=== PATIENT | male | born 1950 | race Caucasian/White ===

== ENCOUNTER 2019-11-05 04:30 | Inpatient (IN) | payer MEDICARE ==
[~2019-11-05] VITALS: Ht 195.6 cm; Wt 147.2 kg
[2019-11-05] VITALS (38 sets, daily range): BP systolic 73–108; BP diastolic 37–57
[2019-11-05] MEDS ORDERED: INSULIN REGULAR VIAL 100 UNIT in IV NORMAL SALINE 100ML 100 ML IV PRN (05:30)
[2019-11-05 05:33] LABS: BASO # 0.1 x10^3/uL (0.0-0.2); BASO % 1 % (0-3); EOS # 0.1 x10^3/uL (0.0-0.7); EOS % 1 % (0-3); LYMPH # 0.9 x10^3/uL (1.0-4.8); LYMPH % 7 % (24-48); MEAN CORPUSCULAR HEMOGLOBIN 27 pg (25-35); MEAN CORPUSCULAR HGB CONC 32 g/dL (31-37); MEAN CORPUSCULAR VOLUME 86 fL (79-100); MONO % 7 % (0-9); NEUT # 11.8 x10^3/uL (1.8-7.7); NEUT % 85 % (31-73); PLATELET COUNT 333 x10^3/uL (140-400); RED BLOOD COUNT 2.37 x10^6/uL (4.30-5.70); RED CELL DISTRIBUTION WIDTH 17.9 % (11.5-14.5); WHITE BLOOD COUNT 13.9 x10^3/uL (4.0-11.0)
[2019-11-05 05:35] LABS: HEMATOCRIT 20.3 % (39.0-53.0); HEMOGLOBIN 6.4 g/dL (13.0-17.5)
[2019-11-05 05:41] LABS: PROTHROMBIN TIME PATIENT 45.7 SEC (11.7-14.0)
[2019-11-05 05:51] LABS: CREATININE 2.6 mg/dL (0.7-1.3); GFR 24.7; POTASSIUM 4.7 mmol/L (3.5-5.1)
--- NOTE | 2019-11-05 05:55 | NUR ---
Pt arrived to ICU at 0410 via gurney and accompanied by 2 EMS personnel. Pt arrived from [facility] hooked up to insulin gtt as well as LR. Insulin Gtt was resumed at rate it came from at [facility] and then input into Glucostabilizer program at [facility] with Dr. Braun's approval and acknowledgement. Dr. Braun to review medical interventions later today for further guidance. Pt arrived with VSS, BP of 100/ 49, O2 saturation of high 90's on 3LNC, pulses +2 in all four extremities, A&O x4, with appropriate affect and speech. Pt has BLE cellulitis and edema that is covered with Aquacell, ABD's, gauze, and elastic wrap sheathe covering. Lab informed this RN of hematology results of HGB 6.4 and HCT 20.3 aswell as critical coagulation results of INR at 4.8. Dr. Braun called at 0545, provider updated on events leading to hospitalization, medical history, labs, critical results, vitals, medications and current medical interventions and findings from physical assessment. Provider ordered this RN to have pt typed and crossed for 4 units, but to give 2 units PRBC's as soon as possible, aswell as administering 1 unit of FFP. Provider also ordered this RN to give 1LNS bolus at this time, and to follow bolus with D5 .45 NS at 100 mL's/ Hr. Provider ordered this RN to add consult for GI aswell as woundcare. Will continue to assess and monitor.
[2019-11-05 05:58] LABS: ALBUMIN/GLOBULIN RATIO 0.6 (1.0-1.7); TOTAL BILIRUBIN 0.3 mg/dL (0.2-1.0); TOTAL PROTEIN 5.1 g/dL (6.4-8.2)
[2019-11-05] MEDS ORDERED: IV NORMAL SALINE 1000ML BAG 1,000 ML IV ONE (07:00)
[2019-11-05] MEDS: IV DEXTROSE 5 %-0.45 % NACL 1,000 ML IV SCH ×2 (07:44→18:36)
[2019-11-05] MEDS ORDERED: DEXTROSE 50% 25 GM / 50ML DISP.SYRIN. IV PRN (09:15)
[2019-11-05] MEDS ORDERED: INSULIN LISPRO 300 UNITS/3 ML VIAL. SQ PRN (09:15)
[2019-11-05] MEDS: PANTOPRAZOLE SODIUM IV DRIP 80 MG in IV NORMAL SALINE 100ML 100 ML IV PRN ×2 (09:38→18:38)
--- NOTE | 2019-11-05 10:12 | HP ---
ADMIT DATE: 11/05/2019 HISTORY OF PRESENT ILLNESS: The patient is a 69-year-old male patient who presented to the Emergency Room of [facility] with a complaint of weakness and having melena stool for the last 3 days. He complained that he is extremely weak and has had 3 days of dark tarry stools with increased weakness resulting in a fall on the day he arrived to the Emergency Room. He has significant past medical history for DVT, pulmonary embolism x 3 and he is on Coumadin. He has never had any previous GI bleeds with no recent travel outside the [place] or specific ill contact. He was evaluated and initially on arrival, he was hypotensive. His lab work showed that his H and H is down to 6.3 and 20.6. His prothrombin time was more than 120, INR is more than 10. aPTT was 45. The patient has received a liter of lactated Ringer and was started on vitamin K and fresh frozen plasma, received 2 units of packed RBCs and was transferred to the Emergency Room of [facility] for further evaluation and treatment. PAST MEDICAL HISTORY: Significant for type 2 diabetes mellitus with multiple complications, chronic obstructive pulmonary disease, hyperlipidemia, peripheral vascular disease, peripheral neuropathy and DVT and pulmonary embolism for which he is on Coumadin. He has chronic venous stasis dermatitis of both lower extremities and chronic cellulitis. PAST SURGICAL HISTORY: Significant for left foot fourth toe amputation. ALLERGIES: HE IS ALLERGIC TO DARVON, TOUJEO AND HUMALOG INSULIN. HE APPARENTLY WAS TREATED WITH BACTRIM FOR ABOUT 10 DAYS. HE IS ALSO INTOLERANT OF BACTRIM. PATIENT IS ALLERGIC TO MILK CONTAINING PRODUCTS, CHLORDIAZEPOXIDE, AND PROPOXYPHENE. FAMILY HISTORY: He has 1 younger brother who has gastroesophageal reflux disease. His father is still alive at the age of 92 and fairly healthy. His mother at age of 84 because of complication with type 2 diabetes. SOCIAL HISTORY: , has 1 daughter and 1 son. He is an ex-smoker, quit about 7 years ago. He smoked for 48 years and he smoked anything between 2 to 3-1/2 packs a day. He used to be also a heavy alcohol drinker. He quit when he was 46 years old. 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 He used a cane and a walker at home. REVIEW OF SYSTEMS: As per history of present illness. PHYSICAL EXAMINATION: GENERAL: On arrival to the Emergency Room, he looked pale, but no jaundice or cyanosis. No lymphadenopathy, no thyromegaly. No jugular venous distention. No limb edema. VITAL SIGNS: His heart rate initially was 80, blood pressure was 111/64, temperature was 97.7, respiratory rate 22, and oxygen saturation was 94%. His blood pressure drifted down to 82/36 at around midnight. HEAD, EYES, EARS, NOSE AND THROAT: Normocephalic, atraumatic. NECK: Supple. HEART: Showed normal first and second heart sounds. No gallop or murmur. CHEST: Clear to auscultation. No crepitation or rhonchi. ABDOMEN: Distended, soft, nontender. No guarding or rigidity. No organomegaly. All hernial orifice intact. Bowel sounds normal. NEUROLOGIC: He was lethargic, but arousable. All his cranial nerves are intact. He moves his upper extremities to much good extent than lower extremities. Examination of the extremities showed no clubbing, cyanosis, but he has marked bilateral lower extremity edema and erythema. LABORATORY DATA: His lab work on arrival to the Emergency Room showed a white cell count 15,800, hemoglobin 6.3, hematocrit 20.6, MCV 87 and platelet count 417,000. His prothrombin time was more than 120. INR was more than 10 and aPTT was 45. His chemistry showed a serum sodium 133, potassium 4.8, chloride 98, bicarbonate 29, anion gap of 6, BUN 149, creatinine was 2.9, estimated GFR was 21 mL per minute, his glucose was high at 365, calcium was 8.5. Total bilirubin, AST, ALT, alkaline phosphatase were normal. CK was 19, total protein was 6, albumin was 2.3 and lipase was 385. His urinalysis was essentially unremarkable and toxic screen was essentially negative. His chest x-ray showed stable mild cardiomegaly. Lungs are clear. There is no pneumothorax, no pleural effusion is appreciated, no acute pulmonary abnormalities. MEDICATIONS: He is currently on following medications: He is on levofloxacin 750 mg once a day, vancomycin 1 g IV daily, warfarin sodium 3 mg once a day, fenofibrate 160 mg once a day, simvastatin 40 mg at bedtime, propranolol 40 mg twice a day, lisinopril 40 mg once a day, aspirin 81 mg once a day, duloxetine 30 mg twice a day, Ambien 5 mg at bedtime, furosemide 40 mg once a day and he is on Levemir 45 units subcutaneously at bedtime, glimepiride 1 mg daily, and ergocalciferol vitamin D2 50,000 units once a day, multivitamin with mineral 1 tablet once a day, gentamicin ointment applied topically daily. ASSESSMENT AND PLAN: In summary, the patient was admitted with Coumadin-induced coagulopathy, acute blood loss anemia and GI bleed as he has recurrent episode of black tarry stool for the last 3 days. He has multiple other medical problems including chronic obstructive pulmonary disease, atrial fibrillation, hyperlipidemia, hypertension, type 2 diabetes with peripheral neuropathy, history of deep vein thrombosis and pulmonary embolism x 3. He will obviously continue to receive 2 units of packed RBCs. We will monitor his H and H and transfuse him as needed. He did receive 1 unit of fresh frozen plasma and 5 mg of vitamin K. We will transfuse 2 units of blood and also 1 unit of fresh frozen plasma were continued. He was on insulin drip that was stopped and started on D5 half normal. We will start him on insulin sliding scale every 6 hours. We have already consulted the Gastroenterology team and we will continue with IV antibiotic for his bilateral lower extremity cellulitis in the form of Zyvox given his impaired kidney function and Zosyn. KELLY CASTANEDA MD DR: LON/mariusz JOB#: [id number] / [id number]
[2019-11-05] MEDS: PIPERACILLIN/TAZOBACTAM 2.25 GM in IV NORMAL SALINE 50ML 50 ML IV SCH ×2 (10:43→18:36)
--- NOTE | 2019-11-05 11:19 | PDOC2 ---
CONSULT Date of Consult Date of Consult DATE: 11/05/19 TIME: 11:12 Reason for Consult Reason for Consult: Melena, anemia History of Present Illness Reason for Visit: This is a 69-year-old gentleman with a long history of diabetes, atherosclerotic disease and previous DVT with pulmonary emboli. He is chronically on Coumadin and apparently according to him has not had a bleeding episode from the Co umadin. However this last few days he has been weak and dizzy and unable to get out of bed and was brought to initially [facility] emergency room and then transferred here. Initial evaluation revealed significant anemia, history of melena, elevated BUN and a significantly elevated INR of 4.8. He cannot recall the last time he had his INR checked. He is at home with family but it is unclear how closely he is being evaluated for his diabetes management and INR. He denies any history of abdominal pain, nausea, vomiting, change in bowel pattern except for the recent several days of black stools. In addition he denies prior EGD or colonoscopy. He is unaware of previous GI bleeding or melena history. Past Medical History Cardiovascular: HTN Pulmonary: No pertinent hx GI: Constipation Heme/Onc: No pertinent hx Hepatobiliary: No pertinent hx Psych: No pertinent hx Rheumatologic: No pertinent hx Infectious disease: No pertinent hx Renal/: Chronic renal insuff Endocrine: Diabetes Family History Family History: Diabetes, Hypertension Social History ALCOHOL: rare Drugs: None Lives: with Family Current Medications Current Medications Current Medications Sodium Chloride 1,000 ml @ 1,000 mls/hr 1X ONCE IV Last administered on 11/05/19at 06:44; Start 11/05/19 at 07:00; Stop 11/05/19 at 07:59; Status DC Dextrose/Sodium Chloride 1,000 ml @ 100 mls/hr Q10H IV Last administered on 11/05/19at 07:44; Start 11/05/19 at 08:00 Insulin Human Regular 100 unit/ Sodium Chloride 101 ml @ 0 mls/hr CONT PRN IV SEE I/O RECORD; Start 11/05/19 at 05:30; Stop 11/05/19 at 09:07; Status DC Piperacillin Sod/ Tazobactam Sod 2.25 gm/Sodium Chloride 50 ml @ 100 mls/hr Q8H IV Last administered on 11/05/19at 10:43; Start 11/05/19 at 09:00 Linezolid/Dextrose 300 ml @ 300 mls/hr Q12H IV Last administered on 11/05/19at 09:40; Start 11/05/19 at 10:00 Insulin Human Lispro (HumaLOG) 0-7 UNITS PRN Q6HRS PRN SQ HYPERGLYCEMIA; Start 11/05/19 at 09:15 Dextrose (Dextrose 50%-Water Syringe) 12.5 gm PRN Q15MIN PRN IV SEE COMMENTS; Start 11/05/19 at 09:15 Pantoprazole Sodium 80 mg/ Sodium Chloride 100 ml @ 10 mls/hr Q10H PRN IV SEND MESSAGE 4 NEXT DOSE. Last administered on 11/05/19at 09:38; Start 11/05/19 at 09:30 Allergies Allergies: Coded Allergies: Milk Containing Products (Verified Allergy, Intermediate, 12/05/17) chlordiazepoxide (Verified Allergy, Intermediate, 12/05/17) insulin glargine (Verified Allergy, Intermediate, increased HR, 12/04/17) Physical Exam General: Alert, Cooperative HEENT: Atraumatic Lungs: Clear to auscultation Heart: Regular rate, Normal S1, Normal S2 Abdomen: Normal bowel sounds, Soft, No tenderness, No hepatosplenomegaly, No masses Extremities: Other (2+ edema and chronic stasis dermatitis changes with desquamation on both lower extremities) Psych/Mental Status: Mental status NL Vitals VITALS Vital Signs Date Time Temp Pulse Resp B/P (MAP) Pulse Ox O2 Delivery O2 Flow Rate FiO2 11/05/19 10:35 98.3 87 17 89/44 98.3 11/05/19 10:00 93 Nasal Cannula 3.0 Labs Labs Laboratory Tests Test 11/05/19 04:30 11/05/19 05:23 11/05/19 06:47 11/05/19 08:07 White Blood Count 13.9 x10^3/uL (4.0-11.0) Red Blood Count 2.37 x10^6/uL (4.30-5.70) Hemoglobin 6.4 g/dL (13.0-17.5) Hematocrit 20.3 % (39.0-53.0) Mean Corpuscular Volume 86 fL (79-100) Mean Corpuscular Hemoglobin 27 pg (25-35) Mean Corpuscular Hemoglobin Concent 32 g/dL (31-37) Red Cell Distribution Width 17.9 % (11.5-14.5) Platelet Count 333 x10^3/uL (140-400) Neutrophils (%) (Auto) 85 % (31-73) Lymphocytes (%) (Auto) 7 % (24-48) Monocytes (%) (Auto) 7 % (0-9) Eosinophils (%) (Auto) 1 % (0-3) Basophils (%) (Auto) 1 % (0-3) Neutrophils # (Auto) 11.8 x10^3/uL (1.8-7.7) Lymphocytes # (Auto) 0.9 x10^3/uL (1.0-4.8) Monocytes # (Auto) 1.0 x10^3/uL (0.0-1.1) Eosinophils # (Auto) 0.1 x10^3/uL (0.0-0.7) Basophils # (Auto) 0.1 x10^3/uL (0.0-0.2) Prothrombin Time 45.7 SEC (11.7-14.0) Prothromb Time International Ratio 4.8 (0.8-1.1) Sodium Level 136 mmol/L (136-145) Potassium Level 4.7 mmol/L (3.5-5.1) Chloride Level 101 mmol/L (98-107) Carbon Dioxide Level 32 mmol/L (21-32) Anion Gap 3 (6-14) Blood Urea Nitrogen 141 mg/dL (8-26) Creatinine 2.6 mg/dL (0.7-1.3) Estimated GFR (Cockcroft-Gault) 24.7 BUN/Creatinine Ratio 54 (6-20) Glucose Level 245 mg/dL (70-99) Lactic Acid Level 1.2 mmol/L (0.4-2.0) Calcium Level 8.0 mg/dL (8.5-10.1) Total Bilirubin 0.3 mg/dL (0.2-1.0) Aspartate Amino Transf (AST/SGOT) 24 U/L (15-37) Alanine Aminotransferase (ALT/SGPT) 23 U/L (16-63) Alkaline Phosphatase 37 U/L (46-116) Total Protein 5.1 g/dL (6.4-8.2) Albumin 2.0 g/dL (3.4-5.0) Albumin/Globulin Ratio 0.6 (1.0-1.7) Glucose (Fingerstick) 227 mg/dL (70-99) 215 mg/dL (70-99) 166 mg/dL (70-99) Laboratory Tests Test 11/05/19 04:30 11/05/19 05:23 11/05/19 06:47 11/05/19 08:07 White Blood Count 13.9 x10^3/uL (4.0-11.0) Red Blood Count 2.37 x10^6/uL (4.30-5.70) Hemoglobin 6.4 g/dL (13.0-17.5) Hematocrit 20.3 % (39.0-53.0) Mean Corpuscular Volume 86 fL (79-100) Mean Corpuscular Hemoglobin 27 pg (25-35) Mean Corpuscular Hemoglobin Concent 32 g/dL (31-37) Red Cell Distribution Width 17.9 % (11.5-14.5) Platelet Count 333 x10^3/uL (140-400) Neutrophils (%) (Auto) 85 % (31-73) Lymphocytes (%) (Auto) 7 % (24-48) Monocytes (%) (Auto) 7 % (0-9) Eosinophils (%) (Auto) 1 % (0-3) Basophils (%) (Auto) 1 % (0-3) Neutrophils # (Auto) 11.8 x10^3/uL (1.8-7.7) Lymphocytes # (Auto) 0.9 x10^3/uL (1.0-4.8) Monocytes # (Auto) 1.0 x10^3/uL (0.0-1.1) Eosinophils # (Auto) 0.1 x10^3/uL (0.0-0.7) Basophils # (Auto) 0.1 x10^3/uL (0.0-0.2) Prothrombin Time 45.7 SEC (11.7-14.0) Prothromb Time International Ratio 4.8 (0.8-1.1) Sodium Level 136 mmol/L (136-145) Potassium Level 4.7 mmol/L (3.5-5.1) Chloride Level 101 mmol/L (98-107) Carbon Dioxide Level 32 mmol/L (21-32) Anion Gap 3 (6-14) Blood Urea Nitrogen 141 mg/dL (8-26) Creatinine 2.6 mg/dL (0.7-1.3) Estimated GFR (Cockcroft-Gault) 24.7 BUN/Creatinine Ratio 54 (6-20) Glucose Level 245 mg/dL (70-99) Lactic Acid Level 1.2 mmol/L (0.4-2.0) Calcium Level 8.0 mg/dL (8.5-10.1) Total Bilirubin 0.3 mg/dL (0.2-1.0) Aspartate Amino Transf (AST/SGOT) 24 U/L (15-37) Alanine Aminotransferase (ALT/SGPT) 23 U/L (16-63) Alkaline Phosphatase 37 U/L (46-116) Total Protein 5.1 g/dL (6.4-8.2) Albumin 2.0 g/dL (3.4-5.0) Albumin/Globulin Ratio 0.6 (1.0-1.7) Glucose (Fingerstick) 227 mg/dL (70-99) 215 mg/dL (70-99) 166 mg/dL (70-99) Assessment/Plan Assessment/Plan Melena and anemia. He describes black stools for several days associated with weakness and lightheadedness and an initial hemoglobin significantly reduced. His BUN is elevated as well suggesting the likelihood of an upper GI bleed. This is likely exacerbated by excessive anticoagulation with an INR of 4.8. It is unclear how long his INR has been elevated since he is unsure of his last INR check. He denies use of NSAIDs or other ulcerogenic medications. History of diabetes. History of atherosclerotic disease History of DVT and pulmonary emboli in the past on chronic Coumadin therapy. Denies previous complication of bleeding. We do not have significant prior records to review other than an admission 2 years ago. Plan: Transfuse to a hemoglobin greater than 8. Fresh frozen plasma and vitamin K to reverse INR to greater to 2.0 or less in the face of acute GI bleeding Check COVID status for possible EGD in the next 24 hours IV PPI LISSY ARTEAGA MD Nov 05, 2019 11:19
[2019-11-05 16:23] LABS: HEMATOCRIT 21.8 % (39.0-53.0); HEMOGLOBIN 7.1 g/dL (13.0-17.5)
[2019-11-05 16:31] LABS: PROTHROMBIN TIME PATIENT 37.3 SEC (11.7-14.0)
[2019-11-05] MEDS ORDERED: PHYTONADIONE 10 MG/ML AMPUL. SQ ONE (18:15)
[2019-11-05] MEDS: INSULIN LISPRO 300 UNITS/3 ML VIAL. SQ SCH ×2 (18:49→21:10)
--- NOTE | 2019-11-05 21:14 | NUR ---
2200 scheduled insulin non administered. Pt is NPO, and just received a dose of correction just prior to 7pm. He is a Q6 blood sugar check. Will resume the normal schedule and recheck at 0000.
[2019-11-06] VITALS (31 sets, daily range): BP systolic 82–133; BP diastolic 35–66
[2019-11-06] MEDS: PIPERACILLIN/TAZOBACTAM 2.25 GM in IV NORMAL SALINE 50ML 50 ML IV SCH ×4 (01:03→21:39)
[2019-11-06] MEDS: INSULIN LISPRO 300 UNITS/3 ML VIAL. SQ SCH ×4 (01:04→17:46)
--- NOTE | 2019-11-06 01:38 | NUR ---
2100 scheduled H&H and INR drawn at this time. This was delayed due to 2 platelet units and 1 PRBC unit admin.
[2019-11-06 01:53] LABS: HEMATOCRIT 21.4 % (39.0-53.0); HEMOGLOBIN 7.1 g/dL (13.0-17.5); RED BLOOD COUNT 2.48 x10^6/uL (4.30-5.70); RED CELL DISTRIBUTION WIDTH 15.8 % (11.5-14.5); WHITE BLOOD COUNT 7.8 x10^3/uL (4.0-11.0)
[2019-11-06 01:58] LABS: PROTHROMBIN TIME PATIENT 31.2 SEC (11.7-14.0)
[2019-11-06 02:16] LABS: ALBUMIN 2.2 g/dL (3.4-5.0); ALBUMIN/GLOBULIN RATIO 0.8 (1.0-1.7); CALCIUM 7.9 mg/dL (8.5-10.1); GFR 20.9; POTASSIUM 4.9 mmol/L (3.5-5.1); TOTAL BILIRUBIN 0.3 mg/dL (0.2-1.0); TOTAL PROTEIN 4.9 g/dL (6.4-8.2)
[2019-11-06] MEDS: PANTOPRAZOLE SODIUM IV DRIP 80 MG in IV NORMAL SALINE 100ML 100 ML IV PRN (04:44)
[2019-11-06] MEDS: IV DEXTROSE 5 %-0.45 % NACL 1,000 ML IV SCH ×2 (05:43→21:04)
[2019-11-06] MEDS ORDERED: ASPI-886 PO (06:53)
[2019-11-06] MEDS ORDERED: WARF6TAB47 PO (06:54)
[2019-11-06] MEDS ORDERED: MULT-735 PO (06:54)
[2019-11-06] MEDS ORDERED: SIMV40TA18 PO (07:02)
[2019-11-06] MEDS ORDERED: FENO160T PO (07:02)
[2019-11-06] MEDS ORDERED: PROP40TA PO (07:02)
[2019-11-06] MEDS ORDERED: TORS20TA2 PO (07:02)
[2019-11-06] MEDS ORDERED: PHENYLEPHRINE in 0.9% NACL PF 1 MG/10 ML SYRINGE. IV ONE (10:50)
[2019-11-06] MEDS ORDERED: LIDOCAINE 2% PF 5 ML VIAL. ONE (10:50)
[2019-11-06] MEDS ORDERED: PROPOFOL 10 MG/ML (20ML) VIAL. IV ONE (10:50)
--- NOTE | 2019-11-06 10:51 | PN ---
DATE: 11/06/2019 SUBJECTIVE: The patient is resting, slightly propped up in bed, no apparent distress. He is awake, alert, responding appropriately, stating that he is thirsty and hungry. He denied any nausea or vomiting. Denied any abdominal pain. PHYSICAL EXAMINATION: GENERAL: When I examined him, he looked pale, no jaundice, cyanosis or thyromegaly. No jugular venous distention. He has chronic bilateral lymphedema. VITAL SIGNS: His heart rate was 78, blood pressure was 86/35, temperature was 97.6, respiratory rate was 16, and oxygen saturation was 96% on 4 liters of oxygen. HEAD, EYES, EARS, NOSE AND THROAT: Showed normocephalic, atraumatic. NECK: Supple. HEART: Showed normal first and second heart sounds. No gallop, rub or murmur. CHEST: Clear to auscultation. No crepitation or rhonchi. ABDOMEN: Distended, soft, nontender. No guarding or rigidity. No organomegaly. All hernial orifices intact. Bowel sounds normal. NEUROLOGIC: He was awake, alert, responding appropriately. All his cranial nerves are intact. He moves upper extremities without difficulty, although he is mostly bedbound. His intake over the last 24 hours was incompletely recorded. LABORATORY DATA: As of this morning, his white cell count was 7800, hemoglobin 7.1, hematocrit 21.4, MCV 86 and platelet count 249,000. His chemistry showed a serum sodium 141, potassium 4.9, chloride 105, bicarbonate 33, anion gap of 3, BUN 125. Creatinine went up from 2.6-3. His estimated GFR was 20 mL per minute, his glucose 178, calcium was 7.9. Total bilirubin, AST, ALT, alkaline phosphatase were normal. Total protein was 4.9, albumin was 2.2. His prothrombin time this morning was 31.2, INR of 3. His SARS-CoV-2 antigen rapid test was negative. ASSESSMENT: 1. Coumadin-induced coagulopathy for which he was treated with fresh frozen plasma and a total of 10 mg of vitamin K. His prothrombin time and INR came down from 45.7 and 4.8 down to 31 and 3. 2. Acute blood loss anemia for which he received multiple units of packed RBCs. His H and H continued to be borderline. This morning, his hemoglobin was 7.1, hematocrit 21.4. 3. The patient has multiple other medical problems including: A. Chronic obstructive pulmonary disease. B. Type 2 diabetes with peripheral neuropathy. C. Hypertension. D. Hyperlipidemia. 4. The patient has atrial fibrillation, rate controlled, well anticoagulated with Coumadin. 5. History of deep venous thrombosis and pulmonary emboli x 3 for which he is on Coumadin. 7. He has bilateral lower extremity cellulitis, which I started him on Zyvox and Zosyn. 8. Acute kidney injury. His creatinine has risen from 2.6-3 mg. His baseline creatinine fluctuates and has been up to 5.5 at one point in time. PLAN: My plan is to transfuse 2 more units of fresh frozen plasma and 1 unit of packed RBCs and check all his labs after that and change the Gastroenterology team planning to do upper GI endoscopy once his coagulation abnormality was corrected as he is most likely bleeding from his upper GI tract. KELLY CASTANEDA MD DR: LON/mariusz JOB#: [id number] / [id number]
[2019-11-06 11:25] LABS: HEMATOCRIT 22.5 % (39.0-53.0); HEMOGLOBIN 7.2 g/dL (13.0-17.5)
--- NOTE | 2019-11-06 11:25 | PDOC4 ---
PROCEDURE Procedure EGD melena, GI bleeding, Anemia anesthesia- propofol Findings; E- normal G- 4 mm non bleeding antral gastric ulcer and erosive gastritis (bx) D- 4 mm DU without bleeding, erosive duodenitis without active bleeding BUT a few flecks of melena/hematin in second portion of duodenum , supporting recent bleeding which has stopped Plan- PO protonix for 3 months PO carafate for one month hold coumadin for 1 week if feasible and then when restarted, close monitoring of INR going forward LISSY ARTEAGA MD Nov 06, 2019 11:25
[2019-11-06 11:37] LABS: PROTHROMBIN TIME PATIENT 14.6 SEC (11.7-14.0)
--- NOTE | 2019-11-06 12:57 | PDOC2 ---
CONSULT Date of Consult Date of Consult DATE: 11/06/19 TIME: 12:54 Reason for Consult Reason for Consult: Elevated Creat Referring Physician Referring Physician: Dr. Braun History of Present Illness Reason for Visit: Patient is a 69-year-old male presented to [facility] ER with a complaint of weakness and having melena stool for the last 3 days. He complained that he is extremely weak and has had 3 days of dark tarry stools with increased weakness resulting in a fall. His past med Hx is significant for DVT, pulmonary embolism x 3 and he is on Coumadin. He has never had any previous GI bleeds He was hypotensive on arrival , Hgb down to 6.3 , prothrombin time > 120, INR > 10. He received a liter of lactated Ringer and was started on vitamin K and fresh frozen plasma, received 2 units of packed RBCs and was transferred to [facility] for further evaluation and treatment. He underwent EGD this morning. Currently he denies any complaints, No CP or SOB. No N/V/D. Denies F/C . No urinary complaints He was hospitalized in Nov 2017 had NATASHA and Hyperkalemia . Prior to his hospita lization in 2017 he was following with Dr. Julio Cr in May of 2017 was cw CKD stage 4 Past Medical History Cardiovascular: HTN Pulmonary: No pertinent hx GI: Constipation Heme/Onc: No pertinent hx Hepatobiliary: No pertinent hx Psych: No pertinent hx Rheumatologic: No pertinent hx Infectious disease: No pertinent hx Renal/: Chronic renal insuff Endocrine: Diabetes Family History Family History He has 1 younger brother who has gastroesophageal reflux disease. His father is still alive at the age of 92 and fairly healthy. His mother at age of 84 because of complication with type 2 diabetes. Family History: Diabetes, Hypertension Social History Social History , has 1 daughter and 1 son. He is an ex-smoker, quit about 7 years ago. He smoked for 48 years and he smoked anything between 2 to 3-1/2 packs a day. He used to be also a heavy alcohol drinker. He quit when he was 46 years old. 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 ALCOHOL: rare Drugs: None Lives: with Family Current Medications Current Medications Current Medications Sodium Chloride 1,000 ml @ 1,000 mls/hr 1X ONCE IV Last administered on 11/05/19at 06:44; Start 11/05/19 at 07:00; Stop 11/05/19 at 07:59; Status DC Dextrose/Sodium Chloride 1,000 ml @ 100 mls/hr Q10H IV Last administered on 11/06/19at 05:43; Start 11/05/19 at 08:00 Insulin Human Regular 100 unit/ Sodium Chloride 101 ml @ 0 mls/hr CONT PRN IV SEE I/O RECORD; Start 11/05/19 at 05:30; Stop 11/05/19 at 09:07; Status DC Piperacillin Sod/ Tazobactam Sod 2.25 gm/Sodium Chloride 50 ml @ 100 mls/hr Q8H IV Last administered on 11/06/19at 05:43; Start 11/05/19 at 09:00 Linezolid/Dextrose 300 ml @ 300 mls/hr Q12H IV Last administered on 11/06/19at 08:47; Start 11/05/19 at 10:00 Insulin Human Lispro (HumaLOG) 0-7 UNITS PRN Q6HRS PRN SQ HYPERGLYCEMIA; Start 11/05/19 at 09:15; Stop 11/05/19 at 12:02; Status DC Dextrose (Dextrose 50%-Water Syringe) 12.5 gm PRN Q15MIN PRN IV SEE COMMENTS; Start 11/05/19 at 09:15 Pantoprazole Sodium 80 mg/ Sodium Chloride 100 ml @ 10 mls/hr Q10H PRN IV SEND MESSAGE 4 NEXT DOSE. Last administered on 11/06/19at 04:44; Start 11/05/19 at 09:30; Stop 11/06/19 at 11:25; Status DC Insulin Human Lispro (HumaLOG) 0-7 UNITS Q6HRS SQ Last administered on 11/06/19at 12:35; Start 11/05/19 at 16:00 Phytonadione (Vitamin K Ampule) 5 mg 1X ONCE SQ Last administered on 11/05/19at 18:51; Start 11/05/19 at 18:15; Stop 11/05/19 at 18:33; Status DC Propofol (Diprivan) 200 mg STK-MED ONCE IV ; Start 11/06/19 at 10:50; Stop 11/06/19 at 10:50; Status DC Lidocaine HCl (Lidocaine Pf 2% Vial) 5 ml STK-MED ONCE .ROUTE ; Start 11/06/19 at 10:50; Stop 11/06/19 at 10:50; Status DC Phenylephrine HCl (PHENYLEPHRINE in 0.9% NACL PF) 1 mg STK-MED ONCE IV ; Start 11/06/19 at 10:50; Stop 11/06/19 at 10:50; Status DC Pantoprazole Sodium (Protonix) 40 mg DAILYAC PO ; Start 11/07/19 at 07:30 Sucralfate (Carafate) 1 gm BID PO ; Start 11/06/19 at 21:00 Active Scripts Active Reported Simvastatin 40 Mg Tablet 1 Tab PO QHS Fenofibrate 160 Mg Tablet 1 Tab PO DAILY Torsemide 20 Mg Tablet 2 Tab PO DAILY Propranolol Hcl 40 Mg Tablet 1 Tab PO BID Warfarin Sodium 6 Mg Tablet 6 Mg PO DAILY One-Daily Multi-Vitamin (Multivitamin) 1 Each Tablet 1 Tab PO DAILY 30 Days Aspirin Ec (Aspirin) 81 Mg Tablet. 1 Tab PO DAILY Allergies Allergies: Coded Allergies: Milk Containing Products (Verified Allergy, Intermediate, 11/06/19) chlordiazepoxide (Verified Allergy, Intermediate, 11/06/19) insulin glargine (Verified Allergy, Intermediate, increased HR, 11/06/19) ROS Review of System As per HPI, rest of the ROS is negative Physical Exam Physical Exam GENERAL: NAD HEENT: OM moist NECK Supple LUNGS: Clear to auscultation. HEART: S1, S2. ABDOMEN: Obese, EXTREMITIES: bilateral lower extremity edema and erythema +, chronic SKIN: No rash NEUROLOGIC: Alert and oriented x 3. [place] + Vital Signs Vital Signs Date Time Temp Pulse Resp B/P (MAP) Pulse Ox O2 Delivery O2 Flow Rate FiO2 11/06/19 12:00 85 23 97/58 (71) 97 Room Air 11/06/19 11:00 97.8 97.8 11/06/19 08:00 4.0 Assessment & Plan NATASHA on CKD- Non Oliguric 2/2 GI bleed, Lisinopril held ,E- lytes and acid base stable , currently no emergent indication for [employer] Supportive care, strict I/O, monitor CKD stage 4 Cr 2.63 with eGFR 24 in May 2017, used to follow with Dr. Julio No significant proteinuria Acute Anemia - s/p EGD this am and PRBC , FFP's Elevated INR at presentation , on coumadin Hx of NATASHA and Hyperkalemia in 2018 DM II HTN- Hypotensive 2/2 to above Labs Labs Laboratory Tests Test 11/05/19 04:30 11/05/19 05:23 11/05/19 06:47 11/05/19 08:07 White Blood Count 13.9 x10^3/uL (4.0-11.0) Red Blood Count 2.37 x10^6/uL (4.30-5.70) Hemoglobin 6.4 g/dL (13.0-17.5) Hematocrit 20.3 % (39.0-53.0) Mean Corpuscular Volume 86 fL (79-100) Mean Corpuscular Hemoglobin 27 pg (25-35) Mean Corpuscular Hemoglobin Concent 32 g/dL (31-37) Red Cell Distribution Width 17.9 % (11.5-14.5) Platelet Count 333 x10^3/uL (140-400) Neutrophils (%) (Auto) 85 % (31-73) Lymphocytes (%) (Auto) 7 % (24-48) Monocytes (%) (Auto) 7 % (0-9) Eosinophils (%) (Auto) 1 % (0-3) Basophils (%) (Auto) 1 % (0-3) Neutrophils # (Auto) 11.8 x10^3/uL (1.8-7.7) Lymphocytes # (Auto) 0.9 x10^3/uL (1.0-4.8) Monocytes # (Auto) 1.0 x10^3/uL (0.0-1.1) Eosinophils # (Auto) 0.1 x10^3/uL (0.0-0.7) Basophils # (Auto) 0.1 x10^3/uL (0.0-0.2) Prothrombin Time 45.7 SEC (11.7-14.0) Prothromb Time International Ratio 4.8 (0.8-1.1) Sodium Level 136 mmol/L (136-145) Potassium Level 4.7 mmol/L (3.5-5.1) Chloride Level 101 mmol/L (98-107) Carbon Dioxide Level 32 mmol/L (21-32) Anion Gap 3 (6-14) Blood Urea Nitrogen 141 mg/dL (8-26) Creatinine 2.6 mg/dL (0.7-1.3) Estimated GFR (Cockcroft-Gault) 24.7 BUN/Creatinine Ratio 54 (6-20) Glucose Level 245 mg/dL (70-99) Lactic Acid Level 1.2 mmol/L (0.4-2.0) Calcium Level 8.0 mg/dL (8.5-10.1) Total Bilirubin 0.3 mg/dL (0.2-1.0) Aspartate Amino Transf (AST/SGOT) 24 U/L (15-37) Alanine Aminotransferase (ALT/SGPT) 23 U/L (16-63) Alkaline Phosphatase 37 U/L (46-116) Total Protein 5.1 g/dL (6.4-8.2) Albumin 2.0 g/dL (3.4-5.0) Albumin/Globulin Ratio 0.6 (1.0-1.7) Glucose (Fingerstick) 227 mg/dL (70-99) 215 mg/dL (70-99) 166 mg/dL (70-99) Test 11/05/19 11:22 11/05/19 12:50 11/05/19 16:10 11/05/19 18:45 Glucose (Fingerstick) 190 mg/dL (70-99) 229 mg/dL (70-99) SARS-CoV-2 Antigen (Rapid) Negative (NEGATIVE) Hemoglobin 7.1 g/dL (13.0-17.5) Hematocrit 21.8 % (39.0-53.0) Prothrombin Time 37.3 SEC (11.7-14.0) Prothromb Time International Ratio 3.7 (0.8-1.1) Test 11/06/19 00:57 11/06/19 01:36 11/06/19 05:45 11/06/19 11:00 Glucose (Fingerstick) 202 mg/dL (70-99) 154 mg/dL (70-99) White Blood Count 7.8 x10^3/uL (4.0-11.0) Red Blood Count 2.48 x10^6/uL (4.30-5.70) Hemoglobin 7.1 g/dL (13.0-17.5) 7.2 g/dL (13.0-17.5) Hematocrit 21.4 % (39.0-53.0) 22.5 % (39.0-53.0) Mean Corpuscular Volume 86 fL (79-100) Mean Corpuscular Hemoglobin 29 pg (25-35) Mean Corpuscular Hemoglobin Concent 33 g/dL (31-37) Red Cell Distribution Width 15.8 % (11.5-14.5) Platelet Count 249 x10^3/uL (140-400) Prothrombin Time 31.2 SEC (11.7-14.0) 14.6 SEC (11.7-14.0) Prothromb Time International Ratio 3.0 (0.8-1.1) 1.2 (0.8-1.1) Sodium Level 141 mmol/L (136-145) Potassium Level 4.9 mmol/L (3.5-5.1) Chloride Level 105 mmol/L (98-107) Carbon Dioxide Level 33 mmol/L (21-32) Anion Gap 3 (6-14) Blood Urea Nitrogen 125 mg/dL (8-26) Creatinine 3.0 mg/dL (0.7-1.3) Estimated GFR (Cockcroft-Gault) 20.9 BUN/Creatinine Ratio 42 (6-20) Glucose Level 178 mg/dL (70-99) Calcium Level 7.9 mg/dL (8.5-10.1) Total Bilirubin 0.3 mg/dL (0.2-1.0) Aspartate Amino Transf (AST/SGOT) 18 U/L (15-37) Alanine Aminotransferase (ALT/SGPT) 20 U/L (16-63) Alkaline Phosphatase 34 U/L (46-116) Total Protein 4.9 g/dL (6.4-8.2) Albumin 2.2 g/dL (3.4-5.0) Albumin/Globulin Ratio 0.8 (1.0-1.7) Test 11/06/19 11:21 Glucose (Fingerstick) 160 mg/dL (70-99) Laboratory Tests Test 11/05/19 16:10 11/05/19 18:45 11/06/19 00:57 11/06/19 01:36 Hemoglobin 7.1 g/dL (13.0-17.5) 7.1 g/dL (13.0-17.5) Hematocrit 21.8 % (39.0-53.0) 21.4 % (39.0-53.0) Prothrombin Time 37.3 SEC (11.7-14.0) 31.2 SEC (11.7-14.0) Prothromb Time International Ratio 3.7 (0.8-1.1) 3.0 (0.8-1.1) Glucose (Fingerstick) 229 mg/dL (70-99) 202 mg/dL (70-99) White Blood Count 7.8 x10^3/uL (4.0-11.0) Red Blood Count 2.48 x10^6/uL (4.30-5.70) Mean Corpuscular Volume 86 fL (79-100) Mean Corpuscular Hemoglobin 29 pg (25-35) Mean Corpuscular Hemoglobin Concent 33 g/dL (31-37) Red Cell Distribution Width 15.8 % (11.5-14.5) Platelet Count 249 x10^3/uL (140-400) Sodium Level 141 mmol/L (136-145) Potassium Level 4.9 mmol/L (3.5-5.1) Chloride Level 105 mmol/L (98-107) Carbon Dioxide Level 33 mmol/L (21-32) Anion Gap 3 (6-14) Blood Urea Nitrogen 125 mg/dL (8-26) Creatinine 3.0 mg/dL (0.7-1.3) Estimated GFR (Cockcroft-Gault) 20.9 BUN/Creatinine Ratio 42 (6-20) Glucose Level 178 mg/dL (70-99) Calcium Level 7.9 mg/dL (8.5-10.1) Total Bilirubin 0.3 mg/dL (0.2-1.0) Aspartate Amino Transf (AST/SGOT) 18 U/L (15-37) Alanine Aminotransferase (ALT/SGPT) 20 U/L (16-63) Alkaline Phosphatase 34 U/L (46-116) Total Protein 4.9 g/dL (6.4-8.2) Albumin 2.2 g/dL (3.4-5.0) Albumin/Globulin Ratio 0.8 (1.0-1.7) Test 11/06/19 05:45 11/06/19 11:00 11/06/19 11:21 Glucose (Fingerstick) 154 mg/dL (70-99) 160 mg/dL (70-99) Hemoglobin 7.2 g/dL (13.0-17.5) Hematocrit 22.5 % (39.0-53.0) Prothrombin Time 14.6 SEC (11.7-14.0) Prothromb Time International Ratio 1.2 (0.8-1.1) Review All relevant outside records, renal labs, imaging studies, telemetry/EKG's were reviewed. Images Images GENERAL: NAD HEENT: OM moist LUNGS: Clear to auscultation. HEART: S1, S2. ABDOMEN: Obese, EXTREMITIES: 2 + edema LE bilaterally with ulcerations on the lateral aspect of the lower legs mild erythema , Chronic stasis changes present SKIN: No rash NEUROLOGIC: Alert and oriented x 3. DIAGNOSIS/ASSESSMENT Assessment & Plan NATASHA on CKD- Improving from 6.7 to 3.2 Lisinopril held Severe Hyperkalemia- Recd Kayexalate on admission Resolved CKD stage 4 Cr 2.63 with eGFR 24 in May Morbid Obesity DM II HTN- BP at goal Chronic leg ulcerations with cellulitis bilaterally On MULUGETA Leong MD Nov 06, 2019 12:57
[2019-11-06 14:13] LABS: ALBUMIN 2.2 g/dL (3.4-5.0); ALBUMIN/GLOBULIN RATIO 0.7 (1.0-1.7); CREATININE 3.1 mg/dL (0.7-1.3); GFR 20.1; POTASSIUM 5.1 mmol/L (3.5-5.1); TOTAL BILIRUBIN 0.3 mg/dL (0.2-1.0); TOTAL PROTEIN 5.4 g/dL (6.4-8.2)
[2019-11-06 18:46] LABS: HEMATOCRIT 23.1 % (39.0-53.0); HEMOGLOBIN 7.3 g/dL (13.0-17.5)
[2019-11-06] MEDS: SUCRALFATE 1 GM TABLET. PO SCH (21:03)
[2019-11-06] MEDS: NYSTATIN 100,000 UNIT/GM TOPICAL CREAM 15GM TUBE. TP SCH (21:04)
[2019-11-07] VITALS (24 sets, daily range): BP systolic 99–157; BP diastolic 42–102
[2019-11-07] MEDS: PIPERACILLIN/TAZOBACTAM 2.25 GM in IV NORMAL SALINE 50ML 50 ML IV SCH ×3 (05:37→18:11)
[2019-11-07] MEDS: INSULIN LISPRO 300 UNITS/3 ML VIAL. SQ SCH ×5 (05:43→16:59)
[2019-11-07 06:13] LABS: PROTHROMBIN TIME PATIENT 23.6 SEC (11.7-14.0)
--- NOTE | 2019-11-07 06:45 | NUR ---
Transferred to ICU room 104 for hypotension from 2S. Report received from PANCHO Maria. Patient alert and oriented x4. Denies pain but SOA on exertion. 2L NC. NO fluids infusing. VSS. Will continue to monitor.
--- NOTE | 2019-11-07 08:11 | PN ---
DATE: 11/07/2019 SUBJECTIVE: The patient is resting, slightly propped up in bed, in no apparent distress. On questioning him, he denied any complaint. In particular, he denied any nausea or vomiting, diarrhea or constipation. Denied any hematemesis, melena or hematochezia. He did have 2 bowel movements with dark tarry stool. PHYSICAL EXAMINATION: GENERAL: When I examined him, he looked pale, no jaundice, cyanosis or thyromegaly. No jugular venous distention. No limb edema. VITAL SIGNS: His heart rate was 96, blood pressure 111/53, temperature was 98.8, respiratory rate was 19 and oxygen saturation was 97% by Venturi mask with only 15 liters. HEENT: Showed normocephalic, atraumatic. NECK: Supple. HEART: Showed normal first and second heart sounds. No gallop, rub or murmur. CHEST: Clear to auscultation. No crepitation or rhonchi. ABDOMEN: Distended, soft, nontender. No guarding or rigidity. No organomegaly. All hernial orifice intact. Bowel sounds normal. NEUROLOGIC: He is awake, alert, responding appropriately. All cranial nerves intact. He moves extremities without difficulty. LABORATORY DATA: His intake over the last 24 hours was 6725, output was 2350. His blood sugar is reasonably controlled.: As of yesterday, his BUN was 121, creatinine 3.1. His hemoglobin was 7.3, hematocrit 23. Today's labs are still pending at the time of this dictation. His most recent prothrombin time as of this morning was 23.6 and INR of 2.1. ASSESSMENT: 1. Coumadin-induced coagulopathy, which was treated with fresh frozen plasma and a total of 10 mg of vitamin K. His prothrombin time and INR came back down yesterday to 14.6 and 1.2; however, today his prothrombin time was 23.6, INR of 2.1. 2. Acute blood loss anemia for which he received multiple units of packed RBCs. As of yesterday, his hemoglobin 7.3 and hematocrit 23.1. 3. [id number] kidney injury. His creatinine was up yesterday to 3.1 from 2.6 on arrival to this facility. I did consult the vascular nurse. 4. The patient underwent esophagogastroduodenoscopy yesterday, which showed that the patient has 4 mm nonbleeding antral gastric ulcer, erosive gastritis, and 4 mm duodenal ulcer without bleeding, erosive duodenitis without active bleeding, but few flecks of melena, hematin and second portion of the duodenum supporting recent bleeding, which has stopped. The patient has multiple medical problems including: a. Chronic obstructive pulmonary disease. b. Type 2 diabetes mellitus with peripheral neuropathy. c. Hypertension. The patient is actually normotensive. d. Hyperlipidemia. 5. The patient has atrial fibrillation, rate controlled, well anticoagulated. 6. History of deep vein thrombosis and pulmonary emboli x 3 for which he was on Coumadin given that he has bled, IVC filter may be a consideration. 7. He has bilateral lower extremity cellulitis. We started him on Zyvox and Zosyn. PLAN: To continue to monitor his H and H and transfuse him as needed. Continue with IV Protonix. Continue to monitor his blood sugar and adjust insulin as needed. KELLY CASTANEDA MD DR: LON/mariusz JOB#: [id number] / [id number]
[2019-11-07] MEDS: SUCRALFATE 1 GM TABLET. PO SCH ×2 (08:25→21:12)
[2019-11-07] MEDS: PANTOPRAZOLE 40 MG TABLET.DR. PO SCH (08:25)
[2019-11-07] MEDS: IV DEXTROSE 5 %-0.45 % NACL 1,000 ML IV SCH ×3 (08:25→21:13)
[2019-11-07] MEDS: NYSTATIN 100,000 UNIT/GM TOPICAL CREAM 15GM TUBE. TP SCH ×2 (08:26→21:00)
--- NOTE | 2019-11-07 10:14 | PDOC ---
Date of Service: DATE: 11/07/19 TIME: 10:14 Subjective: Subjective: Says eating okay, denies stooling/bleeding to me. Objective: Objective: D/w nurse - consideration for IVC filter? Reports of tarry stools though none this shift. Vital Signs: Vital Signs Date Time Temp Pulse Resp B/P (MAP) Pulse Ox O2 Delivery O2 Flow Rate FiO2 11/07/19 08:00 98.6 98 20 136/61 (86) 95 Nasal Cannula 10.0 98.6 Labs: Laboratory Tests Test 11/06/19 11:00 11/06/19 11:21 11/06/19 17:35 11/06/19 18:40 Hemoglobin 7.2 g/dL 7.3 g/dL Hematocrit 22.5 % 23.1 % Prothrombin Time 14.6 SEC Prothromb Time International Ratio 1.2 Sodium Level 140 mmol/L Potassium Level 5.1 mmol/L Chloride Level 104 mmol/L Carbon Dioxide Level 33 mmol/L Anion Gap 3 Blood Urea Nitrogen 121 mg/dL Creatinine 3.1 mg/dL Estimated GFR (Cockcroft-Gault) 20.1 BUN/Creatinine Ratio 39 Glucose Level 169 mg/dL Calcium Level 8.0 mg/dL Total Bilirubin 0.3 mg/dL Aspartate Amino Transf (AST/SGOT) 19 U/L Alanine Aminotransferase (ALT/SGPT) 17 U/L Alkaline Phosphatase 32 U/L Total Protein 5.4 g/dL Albumin 2.2 g/dL Albumin/Globulin Ratio 0.7 Glucose (Fingerstick) 160 mg/dL 164 mg/dL Test 11/06/19 23:44 11/07/19 05:10 11/07/19 05:40 11/07/19 08:23 Glucose (Fingerstick) 145 mg/dL 158 mg/dL 128 mg/dL Prothrombin Time 23.6 SEC Prothromb Time International Ratio 2.1 Imaging: EGD melena, GI bleeding, Anemia anesthesia- propofol Findings; E- normal G- 4 mm non bleeding antral gastric ulcer and erosive gastritis (bx) D- 4 mm DU without bleeding, erosive duodenitis without active bleeding BUT a few flecks of melena/hematin in second portion of duodenum , supporting recent bleeding which has stopped Plan- PO protonix for 3 months PO carafate for one month hold coumadin for 1 week if feasible and then when restarted, close monitoring of INR going forward PE: GEN: sitting up in bed LUNGS: diminished NC 10L HEART: RR ABD: NABS, S/ND/NT NEURO/PSYCH: A & O 3, flat A/P: Melena, weakness - better PUD - EGD as above, path pending Chronic TAN - Hgb stable in 7s, has required 4 units pRBCs H/o PE/DVT, Coumadin coagulopathy - INR down to 1.2 yesterday, 2.1 today - Coumadin held; received 4 units FFP + vit K CKD, DM CRC screen - none COVID negative 11/04 -- Continue PPI and Carafate. Justicifation of Admission Dx: Justifications for Admission: Justification of Admission Dx: Yes ANCA ROSENBAUM Nov 07, 2019 10:14
[2019-11-07] MEDS ORDERED: PIPERACILLIN/TAZOBACTAM 2.25 GM in IV NORMAL SALINE 50ML 50 ML IV SCH (13:00)
--- NOTE | 2019-11-07 14:48 | PDOC ---
Renal-Progress Notes Subjective Notes Notes STILL HAVING TARRY STOOLS History of Present Illness Hx of present illness STABLE Vitals Vitals Vital Signs Date Time Temp Pulse Resp B/P (MAP) Pulse Ox O2 Delivery O2 Flow Rate FiO2 11/07/19 13:00 90 19 114/60 (78) 96 Nasal Cannula 5.0 11/07/19 12:00 98.8 98.8 Weight Weight [ ] I.O. Intake and Output Intake and Output 11/07/19 07:00 Intake Total 3219 ml Output Total 1400 ml Balance 1819 ml Intake Oral 650 ml IV Total 2569 ml Output Urine Total 1400 ml # Bowel Movements 2 Labs Labs Laboratory Tests Test 11/06/19 17:35 11/06/19 18:40 11/06/19 23:44 11/07/19 05:10 Glucose (Fingerstick) 164 mg/dL (70-99) 145 mg/dL (70-99) Hemoglobin 7.3 g/dL (13.0-17.5) Hematocrit 23.1 % (39.0-53.0) Prothrombin Time 23.6 SEC (11.7-14.0) Prothromb Time International Ratio 2.1 (0.8-1.1) Test 11/07/19 05:40 11/07/19 08:23 11/07/19 12:35 11/07/19 13:58 Glucose (Fingerstick) 158 mg/dL (70-99) 128 mg/dL (70-99) 163 mg/dL (70-99) Hematocrit 22.5 % (39.0-53.0) Review of Systems Constitutional: yes: weakness, alert, oriented Ears/Nose/Throat: Yes: no symptom reported Eyes: Yes: no symptom reported Cardiovascular: Yes edema Gastrointestional: Yes: melena Genitourinary: Yes: no symptom reported Musculoskeletal: Yes: no symptom reported Skin: Yes color change Psychiatric/Neurological: Yes: no symptom reported Endocrine: Yes: no symptom reported Physical Exam General Appearance: no apparent distress Skin: warm Respiratory: bilateral CTA Heart: S1S2 Abdomen: soft, bowel sounds present Genitourinary: bladder flat Extremities: pulses present, edema Neurology: alert, oriented Assessment Assessment IMP NATASHA WITH CR OF 3.1, HIGH BUN DUE TO GI BLEED CKD STAGE 4 WITH CR OF 2.6 AT BASELINE ANEMIA OF GI BLEED DM II HTN PLAN PRBC NEEDED ON IVF'S CHECK IRON STORES START ARANESP WILL NEED DIURESIS SOON WILL FOLLOW JAYANT VARGAS MD Nov 07, 2019 14:48
--- NOTE | 2019-11-07 14:56 | PDOC ---
Provider Note Date of Service: DATE: 11/07/19 TIME: 14:53 Provider Note IR NOTE Consulted for IVC filter. Hx DVT/PE now with upper GI bleed. Needs time off coumadin. Would ideally get temp IVC filter. Cr 3.1. Will have to give some contrast for filter placement. Can normally use reduced dose of ~ 20 cc contrast, if OK with nephrology. Will check INR in am. If stable or decreased, and patient has neph clearance will plan on filter tomorrow. Justifications for Admission Other Justification ALFONZO ART MD Nov 07, 2019 14:56
[2019-11-07] MEDS ORDERED: DARBEPOETIN ALFA 60 MCG/0.3 ML DISP.SYRIN. SQ ONE (15:00)
--- NOTE | 2019-11-07 15:11 | NUR ---
SS following for discharge planning. SS reviewed pt chart and discussed with pt RN. Pt is from home and is currently requiring oxygen. Pt on IV Zosyn. COVID19 negative. PT/OT ordered. Pt requesting to go to [place], ; fax [phone], for assisted unit at discharge. SS will continue to follow for discharge planning.
--- NOTE | 2019-11-07 15:38 | NUR ---
Per Dr. Mccullough keep IV fluids infusing and ok to have contrast with IVC filter placement with current creatinine.
--- NOTE | 2019-11-07 18:00 | NUR ---
Wound Care Wound Type/Assessment: Consult to eval and treat pt for BLE cellulitis. Pt reports that the wounds have been present for over 2 years, in varying degrees of severity. Pictures of both wounds present in chart. Measurements entered into detailed assessment. Wounds cleansed and patted dry. Dry scaly skin to ankles and heels, lotion applied. No other open areas noted on head to toe assessment. Treatment Recommendations/Plan: BLE wounds: Cleanse daily with mild soap and water. Pat Dry. Cover open areas with single layer of aquacel AG, ABDs and kerlix. Change daily and as needed to manage drainage. Pt resides in a LTC facility where his wounds are managed in house. Education provided: Pressure ulcer prevention methods discussed. Encouraged to turn often and to use pillows for positioning. Offloading surface/device: ICU bed, pillows for positioning and comfort Recommended Referrals/Tests: None at this time. Discharge Recommendations for dressings: LTC facility to manage wound care on DC
[2019-11-07 19:57] LABS: HEMATOCRIT 24.3 % (39.0-53.0); HEMOGLOBIN 7.7 g/dL (13.0-17.5)
[2019-11-08] VITALS (13 sets, daily range): BP systolic 103–141; BP diastolic 47–93
[2019-11-08] MEDS: PIPERACILLIN/TAZOBACTAM 2.25 GM in IV NORMAL SALINE 50ML 50 ML IV SCH ×3 (06:00→18:44)
[2019-11-08 06:23] LABS: HEMATOCRIT 24.1 % (39.0-53.0); HEMOGLOBIN 7.7 g/dL (13.0-17.5); RED BLOOD COUNT 2.72 x10^6/uL (4.30-5.70); WHITE BLOOD COUNT 8.9 x10^3/uL (4.0-11.0)
[2019-11-08 06:34] LABS: ALBUMIN 2.4 g/dL (3.4-5.0); ALBUMIN/GLOBULIN RATIO 0.6 (1.0-1.7); CALCIUM 8.2 mg/dL (8.5-10.1); CREATININE 3.2 mg/dL (0.7-1.3); GFR 19.4; TOTAL BILIRUBIN 0.4 mg/dL (0.2-1.0); TOTAL PROTEIN 6.1 g/dL (6.4-8.2)
[2019-11-08 06:42] LABS: PROTHROMBIN TIME PATIENT 17.1 SEC (11.7-14.0)
[2019-11-08] MEDS ORDERED: IODIXANOL 320 MG/ML 50ML VIAL. ONE (08:35)
[2019-11-08] MEDS ORDERED: LIDOCAINE WITH 8.4% SOD BICARB 3 ML DISP.SYRIN. ONE ×2 (08:35→08:36)
[2019-11-08] MEDS ORDERED: LIDOCAINE WITH 8.4% SOD BICARB 3 ML DISP.SYRIN. IJ ONE (09:00)
[2019-11-08] MEDS ORDERED: IODIXANOL 320 MG/ML 50ML VIAL. IV ONE (09:00)
[2019-11-08] MEDS ORDERED: CONTRAST GIVEN. MC PRN (09:00)
--- NOTE | 2019-11-08 09:00 | NUR ---
Patient to IR for IVC filter placement. Patient tolerated well with no issues, vitals stable. Report called to PANCHO Kauffman in ICU, patient transferred back to ICU.
[2019-11-08] MEDS: NYSTATIN 100,000 UNIT/GM TOPICAL CREAM 15GM TUBE. TP SCH ×2 (09:43→20:53)
[2019-11-08] MEDS: PANTOPRAZOLE 40 MG TABLET.DR. PO SCH (09:43)
[2019-11-08] MEDS: SUCRALFATE 1 GM TABLET. PO SCH ×2 (09:43→20:53)
[2019-11-08] MEDS: INSULIN LISPRO 300 UNITS/3 ML VIAL. SQ SCH ×3 (09:45→18:44)
--- NOTE | 2019-11-08 10:03 | PDOC ---
Date of Service: DATE: 11/08/19 TIME: 09:58 Objective: Objective: Seen earlier this morning as staff transporting for IVC filter placement. Per nurse - had a dark stool - looked like iron. Vital Signs: Vital Signs Date Time Temp Pulse Resp B/P (MAP) Pulse Ox O2 Delivery O2 Flow Rate FiO2 11/08/19 07:00 101 20 119/76 (90) 96 Nasal Cannula 5.0 11/08/19 04:00 97.9 97.9 Labs: Laboratory Tests Test 11/07/19 12:35 11/07/19 13:58 11/07/19 16:57 11/07/19 19:15 Glucose (Fingerstick) 163 mg/dL 190 mg/dL Hematocrit 22.5 % 24.3 % Hemoglobin 7.7 g/dL Test 11/08/19 05:10 11/08/19 05:30 11/08/19 09:42 White Blood Count 8.9 x10^3/uL Red Blood Count 2.72 x10^6/uL Hemoglobin 7.7 g/dL Hematocrit 24.1 % Mean Corpuscular Volume 89 fL Mean Corpuscular Hemoglobin 28 pg Mean Corpuscular Hemoglobin Concent 32 g/dL Red Cell Distribution Width 16.0 % Platelet Count 296 x10^3/uL Prothrombin Time 17.1 SEC Prothromb Time International Ratio 1.4 Iron Level 16 ug/dL Total Iron Binding Capacity 461 ug/dL Iron Saturation 3 % Sodium Level 136 mmol/L Potassium Level 5.0 mmol/L Chloride Level 101 mmol/L Carbon Dioxide Level 33 mmol/L Anion Gap 2 Blood Urea Nitrogen 101 mg/dL Creatinine 3.2 mg/dL Estimated GFR (Cockcroft-Gault) 19.4 BUN/Creatinine Ratio 32 Glucose Level 216 mg/dL Calcium Level 8.2 mg/dL Total Bilirubin 0.4 mg/dL Aspartate Amino Transf (AST/SGOT) 20 U/L Alanine Aminotransferase (ALT/SGPT) 18 U/L Alkaline Phosphatase 45 U/L Total Protein 6.1 g/dL Albumin 2.4 g/dL Albumin/Globulin Ratio 0.6 Glucose (Fingerstick) 187 mg/dL Current PE: GEN: NAD - transporting to IR LUNGS: NC HEART: borderline tachycardic per monitor - no A Fib ABD: non-distended NEURO/PSYCH: A & O 3 A/P: Melena , DU, erosive gastritis and duodenitis - path pending (from EGD 11/06/19 - no active bleeding) Chronic TAN - stable after transfusions/coagulopathy improvement H/o A Fib, PE/DVT - for IVC filter placement today CKD -- Monitor Hgb. Continue PPI and Carafate, add iron. Outpt colonoscopy. Justicifation of Admission Dx: Justifications for Admission: Justification of Admission Dx: Yes ANCA ROSENBAUM Nov 08, 2019 10:03
[2019-11-08] MEDS ORDERED: POLYETHYLENE GLYCOL 3350 17 GM PACKET. PO PRN (10:15)
--- NOTE | 2019-11-08 11:55 | PDOC ---
Renal-Progress Notes Subjective Notes Notes NONE History of Present Illness Hx of present illness STABLE Vitals Vitals Vital Signs Date Time Temp Pulse Resp B/P (MAP) Pulse Ox O2 Delivery O2 Flow Rate FiO2 11/08/19 08:00 Nasal Cannula 5.0 11/08/19 07:00 101 20 119/76 (90) 96 11/08/19 04:00 97.9 97.9 Weight Weight [ ] I.O. Intake and Output Intake and Output 11/08/19 07:00 Intake Total 3850.48 ml Output Total 2150 ml Balance 1700.48 ml Intake Oral 2430 ml IV Total 1420.48 ml Output Urine Total 2150 ml # Bowel Movements 1 Labs Labs Laboratory Tests Test 11/07/19 12:35 11/07/19 13:58 11/07/19 16:57 11/07/19 19:15 Glucose (Fingerstick) 163 mg/dL (70-99) 190 mg/dL (70-99) Hematocrit 22.5 % (39.0-53.0) 24.3 % (39.0-53.0) Hemoglobin 7.7 g/dL (13.0-17.5) Test 11/08/19 05:10 11/08/19 05:30 11/08/19 09:42 White Blood Count 8.9 x10^3/uL (4.0-11.0) Red Blood Count 2.72 x10^6/uL (4.30-5.70) Hemoglobin 7.7 g/dL (13.0-17.5) Hematocrit 24.1 % (39.0-53.0) Mean Corpuscular Volume 89 fL (79-100) Mean Corpuscular Hemoglobin 28 pg (25-35) Mean Corpuscular Hemoglobin Concent 32 g/dL (31-37) Red Cell Distribution Width 16.0 % (11.5-14.5) Platelet Count 296 x10^3/uL (140-400) Prothrombin Time 17.1 SEC (11.7-14.0) Prothromb Time International Ratio 1.4 (0.8-1.1) Iron Level 16 ug/dL (65-175) Total Iron Binding Capacity 461 ug/dL (250-450) Iron Saturation 3 % (15-34) Sodium Level 136 mmol/L (136-145) Potassium Level 5.0 mmol/L (3.5-5.1) Chloride Level 101 mmol/L (98-107) Carbon Dioxide Level 33 mmol/L (21-32) Anion Gap 2 (6-14) Blood Urea Nitrogen 101 mg/dL (8-26) Creatinine 3.2 mg/dL (0.7-1.3) Estimated GFR (Cockcroft-Gault) 19.4 BUN/Creatinine Ratio 32 (6-20) Glucose Level 216 mg/dL (70-99) Calcium Level 8.2 mg/dL (8.5-10.1) Total Bilirubin 0.4 mg/dL (0.2-1.0) Aspartate Amino Transf (AST/SGOT) 20 U/L (15-37) Alanine Aminotransferase (ALT/SGPT) 18 U/L (16-63) Alkaline Phosphatase 45 U/L (46-116) Total Protein 6.1 g/dL (6.4-8.2) Albumin 2.4 g/dL (3.4-5.0) Albumin/Globulin Ratio 0.6 (1.0-1.7) Glucose (Fingerstick) 187 mg/dL (70-99) Review of Systems Constitutional: yes: weakness, alert, oriented Ears/Nose/Throat: Yes: no symptom reported Eyes: Yes: no symptom reported Cardiovascular: Yes edema Gastrointestional: Yes: melena Genitourinary: Yes: no symptom reported Musculoskeletal: Yes: no symptom reported Skin: Yes color change Psychiatric/Neurological: Yes: no symptom reported Endocrine: Yes: no symptom reported Physical Exam General Appearance: no apparent distress Skin: warm Respiratory: bilateral CTA Heart: S1S2 Abdomen: soft, bowel sounds present Genitourinary: bladder flat Extremities: pulses present, edema Neurology: alert, oriented Assessment Assessment IMP NATASHA WITH CR OF 3.1, HIGH BUN DUE TO GI BLEED CKD STAGE 4 WITH CR OF 2.6 AT BASELINE ANEMIA OF GI BLEED IRON DEFICIENCY S/P IVC DM II HTN PLAN PRBC NEEDED ON IVF'S VENOFER STARTED ARANESP WILL NEED DIURESIS SOON WILL FOLLOW JAYANT VARGAS MD Nov 08, 2019 11:55
--- NOTE | 2019-11-08 12:25 | PN ---
DATE: 11/08/2019 SUBJECTIVE: The patient is resting, slightly propped up in bed, eating his breakfast. OBJECTIVE: GENERAL: When I examined him, he looked well and was clearly in no apparent respiratory distress, pale, not jaundiced, cyanosis or thyromegaly. No jugular venous distention. No limb edema. VITAL SIGNS: His heart rate was 101, blood pressure was 119/76, temperature 97.9, respiratory rate 20, and oxygen saturation was 96% on 5 liters of oxygen. HEAD, EYES, EARS, NOSE AND THROAT: Normocephalic, atraumatic. NECK: Supple. HEART: Showed normal first and second heart sounds. No gallop, rub or murmur. CHEST: Clear to auscultation. No crepitation or rhonchi. ABDOMEN: Distended, soft, nontender. NEUROLOGIC: He is awake, alert, responding appropriately. All cranial nerves are intact. He moves extremities without difficulty. ASSESSMENT: 1. Coumadin induced coagulopathy, which was treated with fresh frozen plasma and total 10 mg of vitamin K. His prothrombin time and INR is down to 17.1 and INR to 1.4. 2. Acute blood loss anemia for which he received multiple units of packed RBCs. His most recent hemoglobin and hematocrit as of this morning was 7.7 and 24.1 with normal white cell count and platelets. 3. Acute on chronic kidney injury. His creatinine was up to 3.2 from 2.6 on admission. He was seen by the small appliance assembly supervisor and there is some debate as to whether he needs hemodialysis. 4. The patient underwent esophagogastroduodenoscopy, showed that he has 4 mm nonbleeding antral gastric ulcer, erosive gastritis as well as 4 mm duodenal ulcer without bleeding and there was some duodenitis without active bleeding, but few flecks of melena and hematin in the second portion of duodenum supporting recent bleeding, which has stopped. 5. The patient has multiple other medical problems including: A. Chronic obstructive pulmonary disease. B. Type 2 diabetes mellitus with peripheral neuropathy. C. Hypertension. The patient is actually normotensive. D. Hyperlipidemia. 6. The patient has atrial fibrillation, rate controlled, well anticoagulated. 7. History of deep vein thrombosis and pulmonary emboli x 3, for which he was on Coumadin and has had an IVC filter placed successfully this morning. 8. He has bilateral lower extremity cellulitis for which I started him on Zyvox and Zosyn. PLAN: To continue monitoring his H and H and transfuse him as needed. Continue with IV Protonix. Continue to monitor his blood sugar and adjust insulin as needed. Continue with IV antibiotic. We will consult Physical and Occupational Therapy. Once stable, he would like to be discharged to [place] for further rehabilitation. KELLY CASTANEDA MD DR: LON/mariusz JOB#: [id number] / [id number]
[2019-11-08] MEDS: IV DEXTROSE 5 %-0.45 % NACL 1,000 ML IV SCH ×2 (12:29→21:24)
[2019-11-08] MEDS ORDERED: IRON SUCROSE COMPLEX 500 MG in IV NORMAL SALINE 250ML 250 ML IV ONE (13:00)
--- NOTE | 2019-11-08 14:04 | NUR ---
SS following up with discharge planning. SS reviewed pt chart and discussed with pt RN. Pt is currently requiring oxygen. Pt on IV Zosyn and IV Zyvox. Pt had IVC filter placed. PT/OT evaluated and recommended jail unit. COVID19 negative. Pt requesting to go to [place], ; fax [phone]. SS phoned and faxed referral to [facility]. SS will await acceptance decision and will proceed accordingly with discharge planning.
--- NOTE | 2019-11-08 14:47 | RAD ---
11/08/2019 12:40 PM Procedures: 1. Inferior venacavogram 2. Placement of an IVC filter Clinical Indication: Hx of multiple PEs; Coumadin on hold. 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 Informed consent was obtained. Timeout procedure was performed. . Ultrasound evaluation demonstrates the right internal jugular vein to be patent and compressible. The right neck was prepped and draped using maximum sterile barrier technique. Using micropuncture technique, under direct ultrasound guidance the right internal jugular vein was accessed.. Reference ultrasound images were saved the medical record. A 5 Beninese sheath was placed. A 5 Beninese catheter was advanced into the inferior vena cava. An inferior venacavogram was obtained demonstrating renal inflow. No thrombus or other focal abnormality was seen. Next a [place] retrievable IVC filter was placed into the infrarenal IVC. The filter is well seated. Position was confirmed with follow-up venogram sheath was removed and manual pressure was held. No immediate complications were identified. Total fluoroscopy time: 3.0 min Dose area product: 220 Gycm2 Impression: Placement of retrievable IVC filter as described.
--- NOTE | 2019-11-08 16:07 | PATHOLOGY ---
[facility] Accession Number: [id number] . 01 Material submitted: . stomach - ANTRAL BIOPSY RULE OUT H PYLORI . 01 Clinical history: . GI BLEED ANEMIA EGD ANTRAL ULCER . 02 Diagnosis: Gastric biopsy, antrum: - Chronic gastritis, mild. LBQ 11/08/2019 1359 Local . 02 Comment: Sections of the gastric antral biopsy show congestion and focal mild chronic inflammation with a few admixed eosinophils. A properly controlled immunoperoxidase stain for Helicobacter is negative for Helicobacter organisms. (JPM/db; 11/08/2019) . Immunoperoxidase stain on A1: Helicobacter pylori . 02 Electronically signed: . Kumar Berger MD, Pathologist NPI- [id number] . 01 Gross description: . The specimen is received in formalin, labeled "Richar, Joce, antral BX" and consists of a fragment of pink-briggs tissue measuring 0.4 x 0.3 cm which is entirely submitted in A1. (SDY; 11/07/2019) SYU/SYU 11/07/2019 1744 Local . 02 Pathologist provided ICD-10: K29.50 . 02 CPT . 118950, [id number] Specimen Comment: A courtesy copy of this report has been sent to [phone] Specimen Comment: Report sent to Performed at: 01 [facility] [address], [place] [id number] MD Wojciech Fay MD Phone: [phone] Performed at: 02 [facility] [address] [place], [place] [id number] MD Kumar Berger MD Phone: [phone]
[2019-11-08 16:32] LABS: HEMATOCRIT 23.8 % (39.0-53.0); HEMOGLOBIN 7.5 g/dL (13.0-17.5)
--- NOTE | 2019-11-08 20:20 | NUR ---
Patient transferred to room 258 via bed accompanied by this RN with 5L/NC on. All belongings transferred with patient to included Cell phone with carrier, cell phone chemist steroids, dentures, clothing/shoes and wallet (patient states all credit cards and money had previously been given to his daughter)--belongings left in room. Patient oriented to room, nursing staff, and assisted to BSC with help of 2RNs.
--- NOTE | 2019-11-08 20:30 | NUR ---
Patient transferred from ICU at this time. All belongings were transferred with the patient. patient is currently sitting on the bedside commode at this time. shelter monitor was placed on the patient at this time. patient denies any other needs at this time. This RN will continue to monitor the patient at this time.
[2019-11-08] MEDS: FERROUS SULFATE 325 MG TABLET. PO SCH (20:53)
[2019-11-09] MEDS: PIPERACILLIN/TAZOBACTAM 2.25 GM in IV NORMAL SALINE 50ML 50 ML IV SCH ×4 (00:15→17:40)
[2019-11-09 03:29] VITALS: BP 100/64
[2019-11-09 05:04] LABS: HEMATOCRIT 23.9 % (39.0-53.0); HEMOGLOBIN 7.6 g/dL (13.0-17.5); RED BLOOD COUNT 2.73 x10^6/uL (4.30-5.70); WHITE BLOOD COUNT 9.6 x10^3/uL (4.0-11.0)
[2019-11-09] MEDS: IV DEXTROSE 5 %-0.45 % NACL 1,000 ML IV SCH (05:12)
[2019-11-09 05:58] LABS: ALBUMIN 2.2 g/dL (3.4-5.0); ALBUMIN/GLOBULIN RATIO 0.6 (1.0-1.7); CALCIUM 8.4 mg/dL (8.5-10.1); CREATININE 2.9 mg/dL (0.7-1.3); GFR 21.7; POTASSIUM 4.6 mmol/L (3.5-5.1); TOTAL BILIRUBIN 0.4 mg/dL (0.2-1.0)
[2019-11-09 07:00] VITALS: BP 133/54
[2019-11-09] MEDS: FERROUS SULFATE 325 MG TABLET. PO SCH ×2 (08:41→20:33)
[2019-11-09] MEDS: SUCRALFATE 1 GM TABLET. PO SCH ×2 (08:41→20:33)
[2019-11-09] MEDS: PANTOPRAZOLE 40 MG TABLET.DR. PO SCH (08:41)
[2019-11-09] MEDS: NYSTATIN 100,000 UNIT/GM TOPICAL CREAM 15GM TUBE. TP SCH ×2 (08:41→20:35)
[2019-11-09] MEDS: INSULIN LISPRO 300 UNITS/3 ML VIAL. SQ SCH ×3 (08:47→17:00)
[2019-11-09 11:00] VITALS: BP 110/72
--- NOTE | 2019-11-09 11:40 | PDOC ---
Date of Service: DATE: 11/09/19 TIME: 11:36 Subjective: Subjective: Thinks he's doing okay. Eating okay. Unaware of any recurrent bleeding. Objective: Vital Signs: Vital Signs Date Time Temp Pulse Resp B/P (MAP) Pulse Ox O2 Delivery O2 Flow Rate FiO2 11/09/19 08:00 Nasal Cannula 5.0 11/09/19 07:00 98.1 65 22 133/54 (80) 94 98.1 Labs: Laboratory Tests Test 11/08/19 12:25 11/08/19 16:10 11/08/19 18:01 11/08/19 21:21 Glucose (Fingerstick) 233 mg/dL 174 mg/dL 223 mg/dL Hemoglobin 7.5 g/dL Hematocrit 23.8 % Test 11/09/19 04:40 White Blood Count 9.6 x10^3/uL Red Blood Count 2.73 x10^6/uL Hemoglobin 7.6 g/dL Hematocrit 23.9 % Mean Corpuscular Volume 88 fL Mean Corpuscular Hemoglobin 28 pg Mean Corpuscular Hemoglobin Concent 32 g/dL Red Cell Distribution Width 16.0 % Platelet Count 314 x10^3/uL Sodium Level 135 mmol/L Potassium Level 4.6 mmol/L Chloride Level 101 mmol/L Carbon Dioxide Level 30 mmol/L Anion Gap 4 Blood Urea Nitrogen 89 mg/dL Creatinine 2.9 mg/dL Estimated GFR (Cockcroft-Gault) 21.7 BUN/Creatinine Ratio 31 Glucose Level 216 mg/dL Calcium Level 8.4 mg/dL Total Bilirubin 0.4 mg/dL Aspartate Amino Transf (AST/SGOT) 17 U/L Alanine Aminotransferase (ALT/SGPT) 16 U/L Alkaline Phosphatase 40 U/L Total Protein 6.0 g/dL Albumin 2.2 g/dL Albumin/Globulin Ratio 0.6 Material submitted: . stomach - ANTRAL BIOPSY RULE OUT H PYLORI Clinical history: . GI BLEED ANEMIA EGD ANTRAL ULCER Diagnosis: Gastric biopsy, antrum: - Chronic gastritis, mild. Comment: Sections of the gastric antral biopsy show congestion and focal mild chronic inflammation with a few admixed eosinophils. A properly controlled immunoperoxidase stain for Helicobacter is negative for Helicobacter organisms. PE: GEN: NAD - up in chair, therapy present LUNGS: NC 5L, diminished HEART: RR ABD: round, non-tender - soft/loose dark brown stool in commode EXTREMITY/SKIN: chronic changes/edema BLE (wrapped) NEURO/PSYCH: A & O 3 A/P: Melena - resolved Chronic TAN - stable , DU, erosive gastritis and duodenitis - path as above H/o A Fib, PE/DVT - s/p IVF filter 11/07 CKD -- Continue PPI, Carafate, iron. Justicifation of Admission Dx: Justifications for Admission: Justification of Admission Dx: Yes ANCA ROSENBAUM Nov 09, 2019 11:40
--- NOTE | 2019-11-09 13:23 | PDOC ---
Renal-Progress Notes Subjective Notes Notes SITTING UP, NO NEW COMPLAINTS History of Present Illness Hx of present illness STABLE Vitals Vitals Vital Signs Date Time Temp Pulse Resp B/P (MAP) Pulse Ox O2 Delivery O2 Flow Rate FiO2 11/09/19 11:00 98.0 108 18 110/72 (85) 94 Nasal Cannula 5.0 98.0 Weight Weight [ ] I.O. Intake and Output Intake and Output 11/09/19 07:00 Intake Total 4746 ml Output Total 2250 ml Balance 2496 ml Intake Oral 1500 ml IV Total 3246 ml Output Urine Total 2250 ml # Bowel Movements 1 Labs Labs Laboratory Tests Test 11/08/19 16:10 11/08/19 18:01 11/08/19 21:21 11/09/19 04:40 Hemoglobin 7.5 g/dL (13.0-17.5) 7.6 g/dL (13.0-17.5) Hematocrit 23.8 % (39.0-53.0) 23.9 % (39.0-53.0) Glucose (Fingerstick) 174 mg/dL (70-99) 223 mg/dL (70-99) White Blood Count 9.6 x10^3/uL (4.0-11.0) Red Blood Count 2.73 x10^6/uL (4.30-5.70) Mean Corpuscular Volume 88 fL (79-100) Mean Corpuscular Hemoglobin 28 pg (25-35) Mean Corpuscular Hemoglobin Concent 32 g/dL (31-37) Red Cell Distribution Width 16.0 % (11.5-14.5) Platelet Count 314 x10^3/uL (140-400) Sodium Level 135 mmol/L (136-145) Potassium Level 4.6 mmol/L (3.5-5.1) Chloride Level 101 mmol/L (98-107) Carbon Dioxide Level 30 mmol/L (21-32) Anion Gap 4 (6-14) Blood Urea Nitrogen 89 mg/dL (8-26) Creatinine 2.9 mg/dL (0.7-1.3) Estimated GFR (Cockcroft-Gault) 21.7 BUN/Creatinine Ratio 31 (6-20) Glucose Level 216 mg/dL (70-99) Calcium Level 8.4 mg/dL (8.5-10.1) Total Bilirubin 0.4 mg/dL (0.2-1.0) Aspartate Amino Transf (AST/SGOT) 17 U/L (15-37) Alanine Aminotransferase (ALT/SGPT) 16 U/L (16-63) Alkaline Phosphatase 40 U/L (46-116) Total Protein 6.0 g/dL (6.4-8.2) Albumin 2.2 g/dL (3.4-5.0) Albumin/Globulin Ratio 0.6 (1.0-1.7) Test 11/09/19 11:56 11/09/19 12:34 Glucose (Fingerstick) 225 mg/dL (70-99) 211 mg/dL (70-99) Review of Systems Constitutional: yes: weakness, alert, oriented Ears/Nose/Throat: Yes: no symptom reported Eyes: Yes: no symptom reported Cardiovascular: Yes edema Gastrointestional: Yes: melena Genitourinary: Yes: no symptom reported Musculoskeletal: Yes: no symptom reported Skin: Yes color change Psychiatric/Neurological: Yes: no symptom reported Endocrine: Yes: no symptom reported Physical Exam General Appearance: no apparent distress Skin: warm Respiratory: bilateral CTA Heart: S1S2 Abdomen: soft, bowel sounds present Genitourinary: bladder flat Extremities: pulses present, edema Neurology: alert, oriented Assessment Assessment IMP NATASHA WITH CR OF 3.1, HIGH BUN DUE TO GI BLEED-CR DOWN TO 2.9 CKD STAGE 4 WITH CR OF 2.6 AT BASELINE ANEMIA OF GI BLEED IRON DEFICIENCY S/P IVC DM II HTN PLAN PRBC NEEDED STOP IVF'S VENOFER DONE STARTED ARANESP START HOME L[facility]IX WILL FOLLOW JAYANT VARGAS MD Nov 09, 2019 13:23
[2019-11-09 13:34] LABS: BASE EXCESS ABG -2 mmol/L (-3-3); HCO3 ABG 27 mmol/L (21-28); PO2 ABG 68 mmHg (65-108); SAT O2 ABG 91 % (92-99)
[2019-11-09 14:03] LABS: FIO2 ABG 40/5LNC; PCO2 ABG 70 mmHg (35-46)
[2019-11-09] MEDS: FUROSEMIDE 40 MG TABLET. PO SCH (14:07)
[2019-11-09 15:00] VITALS: BP 136/58
--- NOTE | 2019-11-09 19:37 | PN ---
DATE: 11/09/2019 SUBJECTIVE: The patient is resting, slightly propped up in his recliner, in no apparent distress. He seemed to be very confused this afternoon, disoriented. He does open his eyes and mumbles some words, but he is definitely confused compared to what he was yesterday when I examined him. PHYSICAL EXAMINATION: GENERAL: He looked pale, but no jaundice, cyanosis or thyromegaly. No jugular venous distention. No lower limb edema. VITAL SIGNS: His heart rate was 65, blood pressure was 133/54, temperature was 98.1, respiratory rate was 22 and oxygen saturation was 94% on 5 liters of oxygen. HEAD, EYES, EARS, NOSE AND THROAT: Showed normocephalic, atraumatic. NECK: Supple. HEART: Showed normal first and second heart sounds. No gallop, rub or murmur. CHEST: Clear to auscultation. No crepitation or rhonchi. ABDOMEN: Distended, soft, nontender. No guarding or rigidity. No organomegaly. All hernial orifice intact. Bowel sounds normal. NEUROLOGIC: He was definitely very confused this afternoon, although he opens eyes, tracks and mumbles some words. He moves his upper extremities. His intake over the last 24 hours was 3850, output was 2100. LABORATORY DATA: His lab work this morning showed a serum sodium 135, potassium 4.6, chloride 101, bicarbonate 30, anion gap of 4, BUN of 89, creatinine 2.9, estimated GFR was 21 mL per minute. His glucose is 216, calcium was 8.4. Total bilirubin, AST, ALT, alkaline phosphatase normal. Total protein 6, albumin 2.2. His white cell count was 9600, hemoglobin 7.6, hematocrit 24, MCV 88 and platelet count 314,000. His most recent prothrombin time as of yesterday was 17.1, INR 1.4. ASSESSMENT: 1. Coumadin-induced coagulopathy, treated with fresh frozen plasma and a total of 10 mg of vitamin K. His prothrombin time is down to 17.1, INR 1.4. 2. Acute blood loss anemia for which he received multiple units of packed RBCs. His most recent hemoglobin and hematocrit are 7.6 and 23.9. The patient underwent esophagogastroduodenoscopy, which showed that he has 4 mm nonbleeding antral gastric ulcer with erosive gastritis as well as 4 mm jejunal ulcer with bleeding and erosive duodenitis without active bleeding. 3. Acute on chronic kidney injury. His creatinine has risen to 3.2 from 2.6. His creatinine is trending down and today is 2.9. 4. The patient has multiple other medical problems including: A. Chronic obstructive pulmonary disease. B. Type 2 diabetes mellitus with peripheral neuropathy. C. Hypertension. D. Hyperlipidemia. 5. The patient has atrial fibrillation, rate controlled, was well anticoagulated. We discontinued his Coumadin. 6. History of deep vein thrombosis and pulmonary emboli x 3 for which he was on Coumadin. He has now an IVC filter placed successfully. 7. He has bilateral lower extremity cellulitis, for which we started him on Zyvox and Zosyn. PLAN: To continue with IV antibiotic in the form of linezolid and Zosyn. Continue with iron supplementation with ferrous sulfate. Continue to monitor his blood sugar and adjust insulin as needed. Continue with Protonix as well as sucralfate. I am not really comfortable sending him today to [place], but if he is stable tomorrow and more awake, alert, we will discharge him. We have already consulted PT, OT to evaluate him. KELLY CASTANEDA MD DR: LON/mariusz JOB#: [id number] / [id number]
[2019-11-09 19:55] VITALS: BP 140/62
[2019-11-09 20:07] LABS: BASE EXCESS ABG 0 mmol/L (-3-3); HCO3 ABG 26 mmol/L (21-28); PCO2 ABG 46 mmHg (35-46); PO2 ABG 95 mmHg (65-108); SAT O2 ABG 97 % (92-99)
[2019-11-09 20:12] LABS: FIO2 ABG 30/BIPAP
[2019-11-09 22:29] VITALS: BP 123/88
--- NOTE | 2019-11-09 22:41 | NUR ---
patient was placed on bipap at 2200. at 2230 patient took bipap off and requested his to wear his nasal canula. Patient is currently refusing to wear the bipap at this time. This RN explained to the patient the importance of the bipap, patient continues to refuse. This RN will attempt to place the bipap on the patient later in the night. This RN will continue to monitor the patient at this time.
[2019-11-10] MEDS: PIPERACILLIN/TAZOBACTAM 2.25 GM in IV NORMAL SALINE 50ML 50 ML IV SCH ×2 (00:13→05:49)
--- NOTE | 2019-11-10 00:26 | NUR ---
this RN asked the patient if he would like to try and wear the Bipap at this time. Patient got visibly irritated and yelled at this RN that he did not want to wear the bipap at all tonight. This RN will continue to monitor the patient at this time.
[2019-11-10] MEDS ORDERED: DIGOXIN IV 500 MCG/2 ML AMPUL. IV ONE (02:15)
[2019-11-10 02:24] VITALS: BP 127/64
--- NOTE | 2019-11-10 04:50 | EKG ---
[facility] [address] [place] [address] Test Date: 2019-11-10 Test Time: 04:22:59 Pat Name: RHONDA BRIONES Department: Room: 258 1 Gender: M Clinic Coordinator: SARAH : 1950 Requested By: KELLY CASTANEDA Order Number: [id number] Reading MD: Measurements Intervals Widen Rate: 143 P: IN: QRS: 31 QRSD: 84 T: 67 QT: 266 QTc: 416 Interpretive Statements SUPRAVENTRICULAR TACHYCARDIA R-S TRANSITION ZONE IN V LEADS DISPLACED TO THE LEFT LOW LIMB LEAD VOLTAGE NO SPECIFIC ECG ABNORMALITIES RI6.01 No previous ECG available for comparison
[2019-11-10 07:18] VITALS: BP 130/64
[2019-11-10] MEDS: PANTOPRAZOLE 40 MG TABLET.DR. PO SCH (07:27)
[2019-11-10 07:30] LABS: ALBUMIN 1.7 g/dL (3.4-5.0); ALBUMIN/GLOBULIN RATIO 0.4 (1.0-1.7); CREATININE 2.6 mg/dL (0.7-1.3); GFR 24.7; POTASSIUM 3.5 mmol/L (3.5-5.1); TOTAL BILIRUBIN 0.4 mg/dL (0.2-1.0); TOTAL PROTEIN 5.8 g/dL (6.4-8.2)
[2019-11-10 07:31] LABS: HEMATOCRIT 22.3 % (39.0-53.0); HEMOGLOBIN 7.1 g/dL (13.0-17.5); RED BLOOD COUNT 2.54 x10^6/uL (4.30-5.70); RED CELL DISTRIBUTION WIDTH 15.9 % (11.5-14.5); WHITE BLOOD COUNT 6.2 x10^3/uL (4.0-11.0)
[2019-11-10] MEDS: INSULIN LISPRO 300 UNITS/3 ML VIAL. SQ SCH ×3 (08:00→17:20)
[2019-11-10] MEDS: FERROUS SULFATE 325 MG TABLET. PO SCH ×2 (09:07→21:28)
[2019-11-10] MEDS: SUCRALFATE 1 GM TABLET. PO SCH ×2 (09:07→21:28)
[2019-11-10] MEDS: NYSTATIN 100,000 UNIT/GM TOPICAL CREAM 15GM TUBE. TP SCH ×2 (09:07→21:28)
[2019-11-10] MEDS: FUROSEMIDE 40 MG TABLET. PO SCH ×2 (09:07→14:15)
[2019-11-10] MEDS ORDERED: FUROSEMIDE 40 MG/4 ML VIAL. IVP ONE (10:00)
--- NOTE | 2019-11-10 10:06 | CONS ---
DATE OF CONSULTATION: 11/10/2019 PULMONARY CONSULTATION ATTENDING PHYSICIAN: Randall Braun MD REASON FOR CONSULTATION: Encephalopathy and hypercapnia. HISTORY OF PRESENT ILLNESS: The patient is a 69-year-old morbidly obese male with a BMI of 39. The patient was hospitalized for Coumadin-induced coagulopathy. He had increased INR. The patient was treated with vitamin K. He had acute blood loss anemia and received multiple units of packed RBCs. The patient has history of atrial fibrillation, for which he was on anticoagulation; however, he also had history of DVT and pulmonary emboli, recurrent in the past. Due to inability to take anticoagulation, he had IVC filter, which was placed successfully. The patient was noted to be lethargic yesterday. Arterial blood gases reveal a pH of 7.20, pCO2 of 70 and a pO2 of 68 on 40% FiO2. At that time, we placed the patient on BiPAP. Followup ABGs showed a pH of 7.37, pCO2 of 46 and a pO2 of 95 on 30% FiO2 with BiPAP. He is now awake, following commands. Denies any chest pain. No cough, no fever, no chills. He has lower extremity edema, which is worsened along with erythema. His chest x-ray reveals increased vascular markings and pleural effusions consistent with congestive heart failure. PAST MEDICAL HISTORY: Significant for: 1. Morbid obesity and suspected obesity hypoventilation syndrome. 2. History of atrial fibrillation; is on chronic anticoagulation prior to hospitalization. 3. History of recurrent DVT and pulmonary embolism. 4. History of recent IVC filter. 5. Acute blood loss anemia, requiring multiple packed RBCs. 6. COPD. 7. Type 2 diabetes. 8. Hypertension. 9. Hyperlipidemia. PAST SURGICAL HISTORY: Recent IVC filter. ALLERGIES: Chlordiazepoxide and insulin glargine. MEDICATIONS: Reviewed as listed in the MRAD. REVIEW OF SYSTEMS: Twelve-point system obtained. Pertinent positives discussed in my history of present illness, otherwise noncontributory. All systems that were negative were reviewed as well. SOCIAL HISTORY: Smoked for about 48 years and quit in 2013. PHYSICAL EXAMINATION: VITAL SIGNS: Reviewed. Pulse ox 98% on 5 liters. He is not on home oxygen. NECK: Supple. LUNGS: With diminished breath sounds. CARDIOVASCULAR: Regular rate. ABDOMEN: Obese. EXTREMITIES: With bilateral pitting edema, lymphedema and erythema. LABORATORY DATA: Reviewed. His ABGs are discussed in my history of present illness. BUN is 69 and creatinine of 2.6. His albumin is 1.7. White cell count 6.2, hemoglobin 7.1, and platelets are 298. IMPRESSION: 1. Acute hypercapnic respiratory failure secondary to development of congestive heart failure. It is probably acute on chronic diastolic heart failure versus acute on chronic right heart failure. 2. Abnormal chest x-ray consistent with congestive heart failure with bilateral pleural effusion and increased vascular markings. 3. Underlying obesity hypoventilation syndrome with intolerance to BiPAP. 4. History of deep venous thrombosis and pulmonary embolism. He has been on Coumadin, but came in with acute blood loss anemia secondary to coagulopathy. He is status post inferior vena cava filter. 5. History of atrial fibrillation. 6. Lower extremity cellulitis. 7. CKD RECOMMENDATIONS: 1. The patient is clinically better since he was treated with BiPAP. He does not want to use it any further and remains intolerant to it. 2. Avoid any sedatives or narcotics. 3. Monitor hemoglobin closely. 4. Continue to withhold anticoagulation. 5. The patient is status post inferior vena cava filter. 6. PFTs as an outpatient. 7. Follow Cardiology recommendations. 8. Follow ID recommendations. 9. Discussed with RN and we will follow along with you. We will obtain chest x-ray as needed. He has NATASHA on CKD and we need to proceed with cautious diuresis. We would give 1 dose of extra Lasix today. MÓNICA LUCIO MD DR: OLESYA/mariusz JOB#: [id number] / [id number] FIFI
[2019-11-10 10:41] VITALS: BP 148/58
--- NOTE | 2019-11-10 10:44 | RAD ---
EXAM: PORTABLE CHEST 1V INDICATION: Reason: DYSPNEA / Spl. Instructions: / History: . TECHNIQUE: Single view COMPARISON: 11/05/2019 chest x-ray FINDINGS: Heart is moderately enlarged, similar to prior. The great vessels appear unremarkable. There is no hilar or mediastinal mass. Lungs show interval development of patchy airspace opacities more confluent at the left lung base. There is mild interstitial prominence noted as well. There is no pleural effusion or pneumothorax. There are no significant osseous abnormalities. IMPRESSION: Bibasilar atelectasis and interstitial pulmonary vascular congestion. Electronically signed by: Argentina Banegas MD (11/10/2019 10:41 AM) [id number]
--- NOTE | 2019-11-10 10:45 | PN ---
DATE: 11/10/2019 SUBJECTIVE: The patient is sitting in his recliner, no apparent distress. He is awake, alert, complaining of pain in both legs. Denied any chest pain or shortness of breath. Denied any dizziness, lightheadedness, or vertigo. PHYSICAL EXAMINATION: GENERAL: When I examined him, he looked pale, but no jaundice, cyanosis, or thyromegaly. No jugular venous distension. No lower limb edema. VITAL SIGNS: His heart rate was 91, blood pressure was 130/64, temperature was 97.3, respiratory rate was 22 and oxygen saturation was 98% on 5 liters of oxygen. HEAD, EYES, EARS, NOSE AND THROAT: Showed normocephalic, atraumatic. NECK: Supple. HEART: Showed normal first and second heart sounds. No gallop, rub or murmur. CHEST: Clear to auscultation. No crepitation or rhonchi. ABDOMEN: Distended, soft, nontender. NEUROLOGIC: He is definitely more awake, alert, responding appropriately. All cranial nerves are intact. He moves extremities without difficulty. He ambulates with a walker. His intake over the last 24 hours was 4746, output was 2300. LABORATORY DATA: As of this morning showed a serum sodium of 145, potassium 3.5, chloride 103, bicarbonate 26, anion gap of 16, BUN 69, creatinine was 2.6, estimated GFR was 24 mL per minute. His glucose was 143, calcium was 7. Total bilirubin, AST, ALT, alkaline phosphatase were normal. Total protein was 5.8, albumin was 1.7. His white cell count was 6200, hemoglobin 7.1, hematocrit 22, MCV 88 and platelet count 298,000. His most recent prothrombin time was 17.1, INR 1.4. ASSESSMENT: 1. Coumadin-induced coagulopathy, treated for fresh frozen plasma and a total of 10 mg of vitamin K. His prothrombin time is down to 17.1 and INR of 1.4. 2. Acute blood loss anemia for which he received multiple units of packed RBCs. His most recent hemoglobin and hematocrit was 7.1 and 23. He underwent esophagogastroduodenoscopy which showed that he has 4 mm nonbleeding antral gastric ulcer with erosive gastritis as well as 4 mm duodenal ulcer with bleeding and erosive duodenitis without active bleeding. 3. Acute on chronic kidney injury. His creatinine is down from high of 3.2-2.6. 4. Acute hypoxic hypercapnic respiratory failure, treated with BiPAP machine. 5. The patient has multiple other medical problems including: A. Chronic obstructive pulmonary disease. B. Type 2 diabetes mellitus with peripheral neuropathy. C. Hypertension. D. Hyperlipidemia. 6. The patient has atrial fibrillation and had an episode of atrial fibrillation with rapid ventricular response, treated with 500 mcg of digoxin as he is off his propranolol. 7. History of deep vein thrombosis and pulmonary emboli x 3 for which he was on Coumadin. He is now on inferior vena cava filter. His bilateral lower extremity cellulitis and chronic venous stasis ulcer for which he is on Zyvox and Zosyn. PLAN: My plan is to continue with IV antibiotic. Continue with iron supplementation. Continue to monitor his blood sugar and adjust insulin as needed. Continue with Protonix as well as sucralfate. His H and H is borderline, so we will repeat his H and H tonight and tomorrow morning. I will consult the Infectious Disease and the wound care team to assist with the management of both lower extremity wounds and cellulitis. KELLY CASTANEDA MD DR: LON/mariusz JOB#: [id number] / [id number]
--- NOTE | 2019-11-10 10:50 | PDOC2 ---
DINO SAHA [facility] 11/10/19 1050: CARDIAC CONSULT DATE OF CONSULT Date of Consult DATE: 11/10/19 TIME: 10:31 REASON FOR CONSULT Reason for Consult: AFIB REFERRING PHYSICIAN Referring Physician: Dr. Braun SOURCE Source: Chart review, Patient HISTORY OF PRESENT ILLNESS HISTORY OF PRESENT ILLNESS This is a 69 yo male, with a history of AFIB, who initially presented to [facility] secondary to weakness, fall, and dark tarry stools for 3 days prior to admission. Was noted to be anemic and hypotensive. Was transferred to [facility] for further evaluation and treatment. Has a history of AFIB, DVT/PE for which he is on warfarin therapy. No previous GI bleed. INR > 10 and PT > 120. Was given vitamin K, FFR, and 2 units of PRBCS. Was tachycardiac overnight, which prompted this consult. 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, IVC filter ) CURRENT MEDICATIONS CURRENT MEDICATIONS Current Medications Medications (Trade) Dose Ordered Sig/Dulce Route PRN Reason Start Time Stop Time Status Last Admin Dose Admin Furosemide (Lasix) 40 mg [id number] PO 11/09/19 14:00 11/10/19 09:07 Digoxin (Lanoxin) 500 mcg 1X ONCE IV 11/10/19 02:15 11/10/19 02:16 DC 11/10/19 02:20 ALLERGIES ALLERGIES: Coded Allergies: Milk Containing Products (Verified Allergy, Intermediate, 11/06/19) chlordiazepoxide (Verified Allergy, Intermediate, 11/06/19) insulin glargine (Verified Allergy, Intermediate, increased HR, 11/06/19) PHYSICAL EXAM General: Alert, Oriented X3, Cooperative, No acute distress HEENT: Atraumatic Lungs: Clear to auscultation Heart: Regular rate Abdomen: Soft Neuro: Normal speech, Sensation intact MUSCULOSKELETAL: Osteoarthritic changes both hands VITALS/I&O VITALS/I&O: Vital Signs Date Time Temp Pulse Resp B/P (MAP) Pulse Ox O2 Delivery O2 Flow Rate FiO2 11/10/19 08:07 Nasal Cannula 5.0 11/10/19 07:18 97.3 91 22 130/64 (86) 98 97.3 I & O 11/09/19 11/09/19 11/10/19 15:00 23:00 07:00 Intake Total 100 ml Output Total 325 ml 600 ml 900 ml Balance -225 ml -600 ml -900 ml LABS Lab: Laboratory Tests Test 11/09/19 11:56 11/09/19 12:34 11/09/19 13:30 11/09/19 17:27 Glucose (Fingerstick) 225 mg/dL (70-99) H 211 mg/dL (70-99) H 159 mg/dL (70-99) H O2 Saturation 91 % (92-99) L Arterial Blood pH 7.20 (7.35-7.45) *L Arterial Blood pCO2 at Patient Temp 70 mmHg (35-46) *H Arterial Blood pO2 at Patient Temp 68 mmHg (65-108) Arterial Blood HCO3 27 mmol/L (21-28) Arterial Blood Base Excess -2 mmol/L (-3-3) FiO2 40/5lnc Test 11/09/19 19:00 11/09/19 21:30 11/10/19 06:35 11/10/19 07:02 O2 Saturation 97 % (92-99) Arterial Blood pH 7.37 (7.35-7.45) Arterial Blood pCO2 at Patient Temp 46 mmHg (35-46) Arterial Blood pO2 at Patient Temp 95 mmHg (65-108) Arterial Blood HCO3 26 mmol/L (21-28) Arterial Blood Base Excess 0 mmol/L (-3-3) FiO2 30/bipap Glucose (Fingerstick) 181 mg/dL (70-99) H 143 mg/dL (70-99) H White Blood Count 6.2 x10^3/uL (4.0-11.0) Red Blood Count 2.54 x10^6/uL (4.30-5.70) L Hemoglobin 7.1 g/dL (13.0-17.5) L Hematocrit 22.3 % (39.0-53.0) L Mean Corpuscular Volume 88 fL (79-100) Mean Corpuscular Hemoglobin 28 pg (25-35) Mean Corpuscular Hemoglobin Concent 32 g/dL (31-37) Red Cell Distribution Width 15.9 % (11.5-14.5) H Platelet Count 298 x10^3/uL (140-400) Sodium Level 145 mmol/L (136-145) Potassium Level 3.5 mmol/L (3.5-5.1) Chloride Level 103 mmol/L (98-107) Carbon Dioxide Level 26 mmol/L (21-32) Anion Gap 16 (6-14) H Blood Urea Nitrogen 69 mg/dL (8-26) H Creatinine 2.6 mg/dL (0.7-1.3) H Estimated GFR (Cockcroft-Gault) 24.7 BUN/Creatinine Ratio 27 (6-20) H Glucose Level 204 mg/dL (70-99) H Calcium Level 7.0 mg/dL (8.5-10.1) L Total Bilirubin 0.4 mg/dL (0.2-1.0) Aspartate Amino Transferase (AST) 13 U/L (15-37) L Alanine Aminotransferase (ALT) 12 U/L (16-63) L Alkaline Phosphatase 32 U/L (46-116) L Total Protein 5.8 g/dL (6.4-8.2) L Albumin 1.7 g/dL (3.4-5.0) L Albumin/Globulin Ratio 0.4 (1.0-1.7) L Laboratory Tests 11/10/19 06:35 Laboratory Tests 11/10/19 06:35 ASSESSMENT/PLAN ASSESSMENT/PLAN 1. GIB; EGD with ulcer, erosive gastritis, and duodenitis 2. Acute blood loss anemia; s/p multiple units of PRBCs 3. Warfarin coagulopathy; s/p FFP. INR > 10 POA. Now 1.4 4. PAFIB; maintaining SR 5. H/o DVT/PE. S/p IVC filter 6. Hypertension:controlled 7. Hyperlipidemia 8. NATASHA on CKDpro 9. COPD 10. Obesity Recommendations Warfarin held with GIB Probable poor candidate for OAC. Consider outpatient referral for LAAO Follow GI recs Supportive care FAIZAN WIENER MD 11/11/19 1527: CARDIAC CONSULT ASSESSMENT/PLAN ASSESSMENT/PLAN Patient seen and examined 11/10/19. Agree with PATHOLOGICAL TECHNICIAN's assessment and plan. EGD with antral gastric ulcer, erosive gastritis/duodenitis noted. Treat per GI team. Acute blood loss anemia s/p transfusion Continue to hold warfarin. Patient probably a poor candidate for long-term anticoagulation. Will consider outpatient referral for LAAO. PAF maintaining sinus rhythm. Thank you for your consultation. DINO SAHA APRN Nov 10, 2019 10:50 FAIZAN WEINER MD Nov 11, 2019 15:27
[2019-11-10 11:33] LABS: HEMATOCRIT 23.1 % (39.0-53.0); HEMOGLOBIN 7.5 g/dL (13.0-17.5)
--- NOTE | 2019-11-10 11:55 | CONS ---
DATE OF CONSULTATION: 11/10/2019 REQUESTING PHYSICIAN: Randall Braun MD REASON FOR CONSULTATION: Lower extremity cellulitis. HISTORY OF PRESENT ILLNESS: This is a 69-year-old morbidly obese gentleman, who came in because of coagulopathy, acute blood loss anemia, and GI bleed. The patient underwent EGD, showed a 4-mm nonbleeding antral gastric ulcer and erosive gastritis and there was another 4-mm duodenal ulcer without bleeding and duodenitis. The patient has bilateral lower extremity weeping ulcers. Hence, the patient was put on Zyvox and Zosyn and hence consultation. The patient says his legs have been like this for a long time. Denies any fever. Denies any nausea, vomiting, diarrhea. The patient's mobility is very limited. He spends most of the day sitting in a chair and he has been weeping for a long time he says from the legs. PAST MEDICAL HISTORY: Positive for diabetes mellitus, hypertension, obesity, obstructive lung disease, hyperlipidemia, peripheral vascular disease, neuropathy, pulmonary embolism, venous stasis dermatitis. SOCIAL HISTORY: Negative for smoking, alcohol, or illicit drug use. ALLERGIES: LISTED ALLERGIC TO INSULIN AND CHLORDIAZEPOXIDE. CURRENT MEDICATIONS: Reviewed. REVIEW OF SYSTEMS: As per HPI, all other systems reviewed are negative. PHYSICAL EXAMINATION: GENERAL: Alert, oriented gentleman, not in any distress. VITAL SIGNS: Stable, afebrile. HEENT: NAD. NECK: Supple, no JVP, no lymphadenopathy. LUNGS: Clear. HEART: S1, S2 regular. ABDOMEN: Soft, nontender. No organomegaly. EXTREMITIES: The patient does have lower extremity superficial weeping ulcers bilaterally. Venous insufficiency and stasis dermatitis present. NEUROLOGIC: The patient is alert, awake and appropriate. No focal neurologic deficit. LABORATORY DATA: White count is normal. BUN and creatinine is 69 and 2.6. Chest x-ray is pulmonary vascular congestion. IMPRESSION: 1. Bilateral lower extremity superficial ulcerations from venous insufficiency and stasis dermatitis. There is no need for any antibiotics for this. The patient needs leg elevation higher than the heart, which unfortunately physically practically impossible for him to do with the way his body habitus and his mobility is. Compression dressings can be done, although I seriously doubt it is going to work without leg elevation. 2. Gastrointestinal bleed, which has resolved or improved. 3. Diabetes. 4. Hypertension. 5. Obesity. 6. Renal insufficiency. RECOMMENDATIONS: We will discontinue antibiotics. Again, encouraged him to elevate the legs, supportive care and the patient can be discharged from the Infectious Disease standpoint of view. KENISHA BURRIS MD DR: VESTA/mariusz JOB#: [id number] / [id number]
--- NOTE | 2019-11-10 12:27 | PDOC ---
Renal-Progress Notes Subjective Notes Notes NO NEW COMPLAINTS History of Present Illness Hx of present illness STABLE Vitals Vitals Vital Signs Date Time Temp Pulse Resp B/P (MAP) Pulse Ox O2 Delivery O2 Flow Rate FiO2 11/10/19 10:41 97.5 92 22 148/58 (88) 97 Nasal Cannula 5.0 97.5 Weight Weight [ ] I.O. Intake and Output Intake and Output 11/10/19 07:00 Intake Total 100 ml Output Total 1825 ml Balance -1725 ml Intake Oral 100 ml Output Urine Total 1825 ml Labs Labs Laboratory Tests Test 11/09/19 12:34 11/09/19 13:30 11/09/19 17:27 11/09/19 19:00 Glucose (Fingerstick) 211 mg/dL (70-99) 159 mg/dL (70-99) O2 Saturation 91 % (92-99) 97 % (92-99) Arterial Blood pH 7.20 (7.35-7.45) 7.37 (7.35-7.45) Arterial Blood pCO2 at Patient Temp 70 mmHg (35-46) 46 mmHg (35-46) Arterial Blood pO2 at Patient Temp 68 mmHg (65-108) 95 mmHg (65-108) Arterial Blood HCO3 27 mmol/L (21-28) 26 mmol/L (21-28) Arterial Blood Base Excess -2 mmol/L (-3-3) 0 mmol/L (-3-3) FiO2 40/5lnc 30/bipap Test 11/09/19 21:30 11/10/19 06:35 11/10/19 07:02 11/10/19 11:10 Glucose (Fingerstick) 181 mg/dL (70-99) 143 mg/dL (70-99) White Blood Count 6.2 x10^3/uL (4.0-11.0) Red Blood Count 2.54 x10^6/uL (4.30-5.70) Hemoglobin 7.1 g/dL (13.0-17.5) 7.5 g/dL (13.0-17.5) Hematocrit 22.3 % (39.0-53.0) 23.1 % (39.0-53.0) Mean Corpuscular Volume 88 fL (79-100) Mean Corpuscular Hemoglobin 28 pg (25-35) Mean Corpuscular Hemoglobin Concent 32 g/dL (31-37) Red Cell Distribution Width 15.9 % (11.5-14.5) Platelet Count 298 x10^3/uL (140-400) Sodium Level 145 mmol/L (136-145) Potassium Level 3.5 mmol/L (3.5-5.1) Chloride Level 103 mmol/L (98-107) Carbon Dioxide Level 26 mmol/L (21-32) Anion Gap 16 (6-14) Blood Urea Nitrogen 69 mg/dL (8-26) Creatinine 2.6 mg/dL (0.7-1.3) Estimated GFR (Cockcroft-Gault) 24.7 BUN/Creatinine Ratio 27 (6-20) Glucose Level 204 mg/dL (70-99) Calcium Level 7.0 mg/dL (8.5-10.1) Total Bilirubin 0.4 mg/dL (0.2-1.0) Aspartate Amino Transf (AST/SGOT) 13 U/L (15-37) Alanine Aminotransferase (ALT/SGPT) 12 U/L (16-63) Alkaline Phosphatase 32 U/L (46-116) Total Protein 5.8 g/dL (6.4-8.2) Albumin 1.7 g/dL (3.4-5.0) Albumin/Globulin Ratio 0.4 (1.0-1.7) Test 11/10/19 11:24 Glucose (Fingerstick) 226 mg/dL (70-99) Review of Systems Constitutional: yes: weakness, alert, oriented Ears/Nose/Throat: Yes: no symptom reported Eyes: Yes: no symptom reported Cardiovascular: Yes edema Gastrointestional: Yes: melena Genitourinary: Yes: no symptom reported Musculoskeletal: Yes: no symptom reported Skin: Yes color change Psychiatric/Neurological: Yes: no symptom reported Endocrine: Yes: no symptom reported Physical Exam General Appearance: no apparent distress Skin: warm Respiratory: bilateral CTA Heart: S1S2 Abdomen: soft, bowel sounds present Genitourinary: bladder flat Extremities: pulses present, edema Neurology: alert, oriented Musculoskeletal: Osteoarthritis Assessment Assessment IMP NATASHA WITH CR OF 3.1, HIGH BUN DUE TO GI BLEED-CR DOWN TO 2.6 CKD STAGE 4 WITH CR OF 2.6 AT BASELINE ANEMIA OF GI BLEED IRON DEFICIENCY S/P IVC DM II HTN PLAN PRBC NEEDED OFF IVF'S VENOFER DONE STARTED ARANESP CONT HOME LASIX ADD METOLAZONE WILL FOLLOW JAYANT VARGAS MD Nov 10, 2019 12:27
--- NOTE | 2019-11-10 13:45 | PDOC ---
GI PROGRESS NOTES Date of Service: Date/Time DATE: 11/10/19 TIME: 13:42 Subjective Subjective sitting in chair- waiting for rehab- Objective Vitals Vital Signs Date Time Temp Pulse Resp B/P (MAP) Pulse Ox O2 Delivery O2 Flow Rate FiO2 11/10/19 10:41 97.5 92 22 148/58 (88) 97 Nasal Cannula 5.0 97.5 11/10/19 08:07 Nasal Cannula 5.0 11/10/19 07:18 97.3 91 22 130/64 (86) 98 Nasal Cannula 5.0 97.3 11/10/19 02:24 98.2 143 22 127/64 (85) 96 Nasal Cannula 5.0 98.2 11/10/19 02:20 142 11/09/19 22:29 97.9 98 22 123/88 (100) 93 Nasal Cannula 5.0 97.9 11/09/19 20:00 Nasal Cannula 5.0 11/09/19 19:55 98.0 102 24 140/62 (88) 95 BiPAP/CPAP 30.0 98.0 11/09/19 16:00 94 BiPAP/CPAP 11/09/19 15:00 98.1 100 24 136/58 (84) 96 BiPAP/CPAP 30.0 98.1 11/09/19 14:04 95 BiPAP/CPAP Labs Labs Laboratory Tests Test 11/09/19 17:27 11/09/19 19:00 11/09/19 21:30 11/10/19 06:35 Glucose (Fingerstick) 159 mg/dL (70-99) 181 mg/dL (70-99) O2 Saturation 97 % (92-99) Arterial Blood pH 7.37 (7.35-7.45) Arterial Blood pCO2 at Patient Temp 46 mmHg (35-46) Arterial Blood pO2 at Patient Temp 95 mmHg (65-108) Arterial Blood HCO3 26 mmol/L (21-28) Arterial Blood Base Excess 0 mmol/L (-3-3) FiO2 30/bipap White Blood Count 6.2 x10^3/uL (4.0-11.0) Red Blood Count 2.54 x10^6/uL (4.30-5.70) Hemoglobin 7.1 g/dL (13.0-17.5) Hematocrit 22.3 % (39.0-53.0) Mean Corpuscular Volume 88 fL (79-100) Mean Corpuscular Hemoglobin 28 pg (25-35) Mean Corpuscular Hemoglobin Concent 32 g/dL (31-37) Red Cell Distribution Width 15.9 % (11.5-14.5) Platelet Count 298 x10^3/uL (140-400) Sodium Level 145 mmol/L (136-145) Potassium Level 3.5 mmol/L (3.5-5.1) Chloride Level 103 mmol/L (98-107) Carbon Dioxide Level 26 mmol/L (21-32) Anion Gap 16 (6-14) Blood Urea Nitrogen 69 mg/dL (8-26) Creatinine 2.6 mg/dL (0.7-1.3) Estimated GFR (Cockcroft-Gault) 24.7 BUN/Creatinine Ratio 27 (6-20) Glucose Level 204 mg/dL (70-99) Calcium Level 7.0 mg/dL (8.5-10.1) Total Bilirubin 0.4 mg/dL (0.2-1.0) Aspartate Amino Transf (AST/SGOT) 13 U/L (15-37) Alanine Aminotransferase (ALT/SGPT) 12 U/L (16-63) Alkaline Phosphatase 32 U/L (46-116) Total Protein 5.8 g/dL (6.4-8.2) Albumin 1.7 g/dL (3.4-5.0) Albumin/Globulin Ratio 0.4 (1.0-1.7) Test 11/10/19 07:02 11/10/19 11:10 11/10/19 11:24 Glucose (Fingerstick) 143 mg/dL (70-99) 226 mg/dL (70-99) Hemoglobin 7.5 g/dL (13.0-17.5) Hematocrit 23.1 % (39.0-53.0) Physical Exam Physical Exam chest- clear abd- soft both LE with severe dermatitis, desquamation Assessment Assessment Small /DU- stable with no further clinically bleeding- Hgb stable- on IV iron Plan Plan continue present plans no further GI recommendations at this time. Will consider colonoscopy screening later as outpt - once more stable Justicifation of Admission Dx: Justifications for Admission: Justification of Admission Dx: Yes LISSY ARTEAGA MD Nov 10, 2019 13:45
[2019-11-10 14:36] VITALS: BP 159/63
--- NOTE | 2019-11-10 16:33 | NUR ---
Review and agree with staff internist office based only documentation and have made changes as needed/appropriate
[2019-11-10 19:05] VITALS: BP 151/70
[2019-11-10 23:31] VITALS: BP 154/68
[2019-11-11 02:24] VITALS: BP 141/60
[2019-11-11 07:30] VITALS: BP 151/55
[2019-11-11] MEDS: INSULIN LISPRO 300 UNITS/3 ML VIAL. SQ SCH ×2 (08:00→12:39)
--- NOTE | 2019-11-11 08:46 | PDOC ---
Infectious Disease Note Subjective Subjective pt is feeling good, no complaints ROS ROS no n/v/d/sob Vital Sign Vital Signs Vital Signs Date Time Temp Pulse Resp B/P (MAP) Pulse Ox O2 Delivery O2 Flow Rate FiO2 11/11/19 07:30 98.0 76 20 151/55 (87) 100 Nasal Cannula 5.0 98.0 Physical Exam PHYSICAL EXAM GENERAL: Alert, oriented gentleman, not in any distress. VITAL SIGNS: Stable, afebrile. HEENT: NAD. NECK: Supple, no JVP, no lymphadenopathy. LUNGS: Clear. HEART: S1, S2 regular. ABDOMEN: Soft, nontender. No organomegaly. EXTREMITIES: The patient does have lower extremity superficial weeping ulcers bilaterally. Venous insufficiency and stasis dermatitis present. NEUROLOGIC: The patient is alert, awake and appropriate. No focal neurologic deficit. Labs Lab Laboratory Tests Test 11/10/19 11:10 11/10/19 11:24 11/10/19 16:02 11/10/19 21:22 Hemoglobin 7.5 g/dL (13.0-17.5) Hematocrit 23.1 % (39.0-53.0) Glucose (Fingerstick) 226 mg/dL (70-99) 184 mg/dL (70-99) 175 mg/dL (70-99) Test 11/11/19 07:11 Glucose (Fingerstick) 149 mg/dL (70-99) Objective Assessment IMPRESSION: 1. Bilateral lower extremity superficial ulcerations from venous insufficiency and stasis dermatitis. There is no need for any antibiotics for this. The patient needs leg elevation higher than the heart, which unfortunately physically practically impossible for him to do with the way his body habitus and his mobility is. Compression dressings can be done, although I seriously doubt it is going to work without leg elevation. 2. Gastrointestinal bleed, which has resolved or improved. 3. Diabetes. 4. Hypertension. 5. Obesity. 6. Renal insufficiency. Plan Plan of Care off antibiotics leg elevation pt/ot ok to d/c to KENISHA APPIAH MD Nov 11, 2019 08:46
[2019-11-11] MEDS: NYSTATIN 100,000 UNIT/GM TOPICAL CREAM 15GM TUBE. TP SCH (09:00)
[2019-11-11] MEDS ORDERED: MULTIVITAMIN with MINERAL TABLET. PO SCH (09:00)
[2019-11-11] MEDS ORDERED: metOLazone 2.5 MG TABLET PO SCH (09:00)
[2019-11-11] MEDS ORDERED: POLY17PO29 PO (09:20)
[2019-11-11] MEDS ORDERED: PANT40TA77 PO (09:20)
[2019-11-11] MEDS ORDERED: METO5TAB4 PO (09:20)
[2019-11-11] MEDS ORDERED: SUCR1TAB35 PO (09:22)
--- NOTE | 2019-11-11 09:24 | SNU/HH DC ---
DISCHARGE ORDERS DISCHARGE INFORMATION: DISCHARGE DATE: Nov 11, 2019 FINAL DIAGNOSIS blood loss anemia acute on chronic kidney injuery COPD Morbid Obesity CODE STATUS: Code Status: Full SENIOR LIVING: SNF STAY <30 DAYS: Yes POST DISCHARGE ORDERS: ACTIVITY ORDERS: Activity as tolerated DIET AFTER DISCHARGE: ADA TREATMENT/EQUIPMENT ORDERS: RESPIRATORY EQUIPMENT NEEDED: Oxygen Physical Therapy For: Evalulation/Treatment Occupational Therapy For: Evaluation/Treatment DISCHARGE MEDICATIONS: Home Meds Active Scripts Sucralfate (CARAFATE) 1 Gm Tablet, 1 TAB PO QID for pepetic ulcer for 30 Days, #120 TAB 0 Refills Prov:KELLY CASTANEDA MD 11/11/19 Pantoprazole Sodium (PROTONIX ) 40 Mg Tablet., 40 MG PO DAILYAC for GERD for 30 Days, #30 TAB Prov:KELLY CASTANEDA MD 11/11/19 Polyethylene Glycol 3350 (MIRALAX) 17 Gm Powd.pack, 1 PACKET PO DAILY for constipation for 2 Days, #2 PACKET 0 Refills dissolve in water Prov:KELLY CASTANEDA MD 11/11/19 Metolazone (METOLAZONE) 5 Mg Tablet, 5 MG PO DAILY for chf for 30 Days, #30 TAB 0 Refills Prov:KELLY CASTANEDA MD 11/11/19 Reported Medications Simvastatin (SIMVASTATIN) 40 Mg Tablet, 1 TAB PO QHS for high cholesterol pill , #30 TAB 5 Refills 11/06/19 Fenofibrate (FENOFIBRATE) 160 Mg Tablet, 1 TAB PO DAILY for cholesterol pill , #30 TAB 5 Refills 11/06/19 Torsemide (TORSEMIDE) 20 Mg Tablet, 2 TAB PO DAILY for diuretic , #90 TAB 1 Refill 11/06/19 Propranolol Hcl (PROPRANOLOL HCL) 40 Mg Tablet, 1 TAB PO BID for High Blood pressure pill , #60 TAB 5 Refills 11/06/19 Multivitamin (One-Daily Multi-Vitamin) 1 Each Tablet, 1 TAB PO DAILY for supplement for 30 Days, #30 TAB 0 Refills 11/06/19 Aspirin (ASPIRIN EC) 81 Mg Tablet., 1 TAB PO DAILY for heart health , #30 TAB 3 Refills 11/06/19 Discontinued Reported Medications Warfarin Sodium (WARFARIN SODIUM) 6 Mg Tablet, 6 MG PO DAILY for Blood Thinner , #30 TAB 11/06/19 KELLY CASTANEDA MD Nov 11, 2019 09:24
[2019-11-11] MEDS: FUROSEMIDE 40 MG TABLET. PO SCH ×2 (09:34→14:37)
[2019-11-11] MEDS: SUCRALFATE 1 GM TABLET. PO SCH (09:34)
[2019-11-11] MEDS: PANTOPRAZOLE 40 MG TABLET.DR. PO SCH (09:35)
[2019-11-11] MEDS: FERROUS SULFATE 325 MG TABLET. PO SCH (09:35)
[2019-11-11 09:41] LABS: ALBUMIN/GLOBULIN RATIO 0.6 (1.0-1.7); CALCIUM 8.3 mg/dL (8.5-10.1); CREATININE 2.1 mg/dL (0.7-1.3); GFR 31.6; POTASSIUM 4.3 mmol/L (3.5-5.1); TOTAL BILIRUBIN 0.3 mg/dL (0.2-1.0); TOTAL PROTEIN 5.3 g/dL (6.4-8.2)
[2019-11-11 10:28] VITALS: BP 141/60
[2019-11-11 10:34] LABS: HEMATOCRIT 23.2 % (39.0-53.0); HEMOGLOBIN 7.4 g/dL (13.0-17.5); RED BLOOD COUNT 2.67 x10^6/uL (4.30-5.70); RED CELL DISTRIBUTION WIDTH 15.9 % (11.5-14.5); WHITE BLOOD COUNT 6.1 x10^3/uL (4.0-11.0)
--- NOTE | 2019-11-11 12:00 | PDOC ---
PULMONARY PROGRESS NOTES DATE: 11/11/19 TIME: 11:56 Subjective Remains on 5liters N/C no overnight concerns from nursing Denies SOB, CP, or cough Feeling much better today Vitals Vital Signs Date Time Temp Pulse Resp B/P (MAP) Pulse Ox O2 Delivery O2 Flow Rate FiO2 11/11/19 10:28 98.1 96 26 141/60 (87) 98 Nasal Cannula 5.0 98.1 ROS: No Nausea, No Chest Pain, No Abdominal Pain General: Alert Lungs: Clear Cardiovascular: S1, S2 Abdomen: Other (obese ) Extremities: Other (BLE ly,phdema ) Skin: Other (BLE chronic lymphadema ) Labs Laboratory Tests Test 11/09/19 12:34 11/09/19 13:30 11/09/19 17:27 11/09/19 19:00 Glucose (Fingerstick) 211 mg/dL (70-99) 159 mg/dL (70-99) O2 Saturation 91 % (92-99) 97 % (92-99) Arterial Blood pH 7.20 (7.35-7.45) 7.37 (7.35-7.45) Arterial Blood pCO2 at Patient Temp 70 mmHg (35-46) 46 mmHg (35-46) Arterial Blood pO2 at Patient Temp 68 mmHg (65-108) 95 mmHg (65-108) Arterial Blood HCO3 27 mmol/L (21-28) 26 mmol/L (21-28) Arterial Blood Base Excess -2 mmol/L (-3-3) 0 mmol/L (-3-3) FiO2 40/5lnc 30/bipap Test 11/09/19 21:30 11/10/19 06:35 11/10/19 07:02 11/10/19 11:10 Glucose (Fingerstick) 181 mg/dL (70-99) 143 mg/dL (70-99) White Blood Count 6.2 x10^3/uL (4.0-11.0) Red Blood Count 2.54 x10^6/uL (4.30-5.70) Hemoglobin 7.1 g/dL (13.0-17.5) 7.5 g/dL (13.0-17.5) Hematocrit 22.3 % (39.0-53.0) 23.1 % (39.0-53.0) Mean Corpuscular Volume 88 fL (79-100) Mean Corpuscular Hemoglobin 28 pg (25-35) Mean Corpuscular Hemoglobin Concent 32 g/dL (31-37) Red Cell Distribution Width 15.9 % (11.5-14.5) Platelet Count 298 x10^3/uL (140-400) Sodium Level 145 mmol/L (136-145) Potassium Level 3.5 mmol/L (3.5-5.1) Chloride Level 103 mmol/L (98-107) Carbon Dioxide Level 26 mmol/L (21-32) Anion Gap 16 (6-14) Blood Urea Nitrogen 69 mg/dL (8-26) Creatinine 2.6 mg/dL (0.7-1.3) Estimated GFR (Cockcroft-Gault) 24.7 BUN/Creatinine Ratio 27 (6-20) Glucose Level 204 mg/dL (70-99) Calcium Level 7.0 mg/dL (8.5-10.1) Total Bilirubin 0.4 mg/dL (0.2-1.0) Aspartate Amino Transf (AST/SGOT) 13 U/L (15-37) Alanine Aminotransferase (ALT/SGPT) 12 U/L (16-63) Alkaline Phosphatase 32 U/L (46-116) Total Protein 5.8 g/dL (6.4-8.2) Albumin 1.7 g/dL (3.4-5.0) Albumin/Globulin Ratio 0.4 (1.0-1.7) Test 11/10/19 11:24 11/10/19 16:02 11/10/19 21:22 11/11/19 07:11 Glucose (Fingerstick) 226 mg/dL (70-99) 184 mg/dL (70-99) 175 mg/dL (70-99) 149 mg/dL (70-99) Test 11/11/19 09:15 11/11/19 10:25 11/11/19 11:07 Sodium Level 143 mmol/L (136-145) Potassium Level 4.3 mmol/L (3.5-5.1) Chloride Level 105 mmol/L (98-107) Carbon Dioxide Level 36 mmol/L (21-32) Anion Gap 2 (6-14) Blood Urea Nitrogen 68 mg/dL (8-26) Creatinine 2.1 mg/dL (0.7-1.3) Estimated GFR (Cockcroft-Gault) 31.6 BUN/Creatinine Ratio 32 (6-20) Glucose Level 187 mg/dL (70-99) Calcium Level 8.3 mg/dL (8.5-10.1) Magnesium Level 2.4 mg/dL (1.8-2.4) Total Bilirubin 0.3 mg/dL (0.2-1.0) Aspartate Amino Transf (AST/SGOT) 16 U/L (15-37) Alanine Aminotransferase (ALT/SGPT) 16 U/L (16-63) Alkaline Phosphatase 51 U/L (46-116) Total Protein 5.3 g/dL (6.4-8.2) Albumin 2.0 g/dL (3.4-5.0) Albumin/Globulin Ratio 0.6 (1.0-1.7) White Blood Count 6.1 x10^3/uL (4.0-11.0) Red Blood Count 2.67 x10^6/uL (4.30-5.70) Hemoglobin 7.4 g/dL (13.0-17.5) Hematocrit 23.2 % (39.0-53.0) Mean Corpuscular Volume 87 fL (79-100) Mean Corpuscular Hemoglobin 28 pg (25-35) Mean Corpuscular Hemoglobin Concent 32 g/dL (31-37) Red Cell Distribution Width 15.9 % (11.5-14.5) Platelet Count 351 x10^3/uL (140-400) Glucose (Fingerstick) 214 mg/dL (70-99) Laboratory Tests Test 11/10/19 16:02 11/10/19 21:22 11/11/19 07:11 11/11/19 09:15 Glucose (Fingerstick) 184 mg/dL (70-99) 175 mg/dL (70-99) 149 mg/dL (70-99) Sodium Level 143 mmol/L (136-145) Potassium Level 4.3 mmol/L (3.5-5.1) Chloride Level 105 mmol/L (98-107) Carbon Dioxide Level 36 mmol/L (21-32) Anion Gap 2 (6-14) Blood Urea Nitrogen 68 mg/dL (8-26) Creatinine 2.1 mg/dL (0.7-1.3) Estimated GFR (Cockcroft-Gault) 31.6 BUN/Creatinine Ratio 32 (6-20) Glucose Level 187 mg/dL (70-99) Calcium Level 8.3 mg/dL (8.5-10.1) Magnesium Level 2.4 mg/dL (1.8-2.4) Total Bilirubin 0.3 mg/dL (0.2-1.0) Aspartate Amino Transf (AST/SGOT) 16 U/L (15-37) Alanine Aminotransferase (ALT/SGPT) 16 U/L (16-63) Alkaline Phosphatase 51 U/L (46-116) Total Protein 5.3 g/dL (6.4-8.2) Albumin 2.0 g/dL (3.4-5.0) Albumin/Globulin Ratio 0.6 (1.0-1.7) Test 11/11/19 10:25 11/11/19 11:07 White Blood Count 6.1 x10^3/uL (4.0-11.0) Red Blood Count 2.67 x10^6/uL (4.30-5.70) Hemoglobin 7.4 g/dL (13.0-17.5) Hematocrit 23.2 % (39.0-53.0) Mean Corpuscular Volume 87 fL (79-100) Mean Corpuscular Hemoglobin 28 pg (25-35) Mean Corpuscular Hemoglobin Concent 32 g/dL (31-37) Red Cell Distribution Width 15.9 % (11.5-14.5) Platelet Count 351 x10^3/uL (140-400) Glucose (Fingerstick) 214 mg/dL (70-99) Medications Active Scripts Medications Dose Route/Sig Max Daily Dose Days Date Category Dose Instructions Carafate (Sucralfate) 1 Gm Tablet 1 Tab PO QID 30 11/11/19 Rx Protonix (Pantoprazole Sodium) 40 Mg Tablet.dr 40 Mg PO DAILYAC 30 11/11/19 Rx Miralax (Polyethylene Glycol 3350) 17 Gm Powd.pack 1 Packet PO DAILY 2 11/11/19 Rx dissolve in water Metolazone 5 Mg Tablet 5 Mg PO DAILY 30 11/11/19 Rx Simvastatin 40 Mg Tablet 1 Tab PO QHS 11/06/19 Reported Fenofibrate 160 Mg Tablet 1 Tab PO DAILY 11/06/19 Reported Torsemide 20 Mg Tablet 2 Tab PO DAILY 11/06/19 Reported Propranolol Hcl 40 Mg Tablet 1 Tab PO BID 11/06/19 Reported One-Daily Multi-Vitamin (Multivitamin) 1 Each Tablet 1 Tab PO DAILY 30 11/06/19 Reported Aspirin Ec (Aspirin) 81 Mg Tablet. 1 Tab PO DAILY 11/06/19 Reported Comments IMPRESSION: Bibasilar atelectasis and interstitial pulmonary vascular congestion. Impression . IMPRESSION: 1. Acute hypercapnic respiratory failure secondary to development of congestive heart failure. It is probably acute on chronic diastolic heart failure versus acute on chronic right heart failure. 2. Abnormal chest x-ray consistent with congestive heart failure with bilateral pleural effusion and increased vascular markings. 3. Underlying obesity hypoventilation syndrome with intolerance to BiPAP. 4. History of deep venous thrombosis and pulmonary embolism. He has been on Coumadin, but came in with acute blood loss anemia secondary to coagulopathy. He is status post inferior vena cava filter. 5. History of atrial fibrillation. 6. Lower extremity cellulitis. 7. CKD Plan . RECOMMENDATIONS: continue Supplemental oxygen The patient is clinically better since he was treated with BiPAP. He does not want to use it any further and remains intolerant to it. Avoid any sedatives or narcotics. Monitor hemoglobin closely. Continue to withhold anticoagulation. The patient is status post inferior vena cava filter. Monitor renal function PFTs as an outpatient. Follow Cardiology recommendations. Follow ID recommendations-- off ABX D/W PANCHO ok to D/C today to SNF from our stand point MÓNICA LUCIO MD Nov 11, 2019 12:00
--- NOTE | 2019-11-11 12:03 | PDOC ---
Renal-Progress Notes Subjective Notes Notes FEELS WELL History of Present Illness Hx of present illness STABLE Vitals Vitals Vital Signs Date Time Temp Pulse Resp B/P (MAP) Pulse Ox O2 Delivery O2 Flow Rate FiO2 11/11/19 10:28 98.1 96 26 141/60 (87) 98 Nasal Cannula 5.0 98.1 Weight Weight [ ] I.O. Intake and Output Intake and Output 11/11/19 07:00 Intake Total 1800 ml Output Total 6125 ml Balance -4325 ml Intake Oral 1500 ml IV Total 300 ml Output Urine Total 6125 ml # Bowel Movements 1 Labs Labs Laboratory Tests Test 11/10/19 16:02 11/10/19 21:22 11/11/19 07:11 11/11/19 09:15 Glucose (Fingerstick) 184 mg/dL (70-99) 175 mg/dL (70-99) 149 mg/dL (70-99) Sodium Level 143 mmol/L (136-145) Potassium Level 4.3 mmol/L (3.5-5.1) Chloride Level 105 mmol/L (98-107) Carbon Dioxide Level 36 mmol/L (21-32) Anion Gap 2 (6-14) Blood Urea Nitrogen 68 mg/dL (8-26) Creatinine 2.1 mg/dL (0.7-1.3) Estimated GFR (Cockcroft-Gault) 31.6 BUN/Creatinine Ratio 32 (6-20) Glucose Level 187 mg/dL (70-99) Calcium Level 8.3 mg/dL (8.5-10.1) Magnesium Level 2.4 mg/dL (1.8-2.4) Total Bilirubin 0.3 mg/dL (0.2-1.0) Aspartate Amino Transf (AST/SGOT) 16 U/L (15-37) Alanine Aminotransferase (ALT/SGPT) 16 U/L (16-63) Alkaline Phosphatase 51 U/L (46-116) Total Protein 5.3 g/dL (6.4-8.2) Albumin 2.0 g/dL (3.4-5.0) Albumin/Globulin Ratio 0.6 (1.0-1.7) Test 11/11/19 10:25 11/11/19 11:07 White Blood Count 6.1 x10^3/uL (4.0-11.0) Red Blood Count 2.67 x10^6/uL (4.30-5.70) Hemoglobin 7.4 g/dL (13.0-17.5) Hematocrit 23.2 % (39.0-53.0) Mean Corpuscular Volume 87 fL (79-100) Mean Corpuscular Hemoglobin 28 pg (25-35) Mean Corpuscular Hemoglobin Concent 32 g/dL (31-37) Red Cell Distribution Width 15.9 % (11.5-14.5) Platelet Count 351 x10^3/uL (140-400) Glucose (Fingerstick) 214 mg/dL (70-99) Review of Systems Constitutional: yes: weakness, alert, oriented Ears/Nose/Throat: Yes: no symptom reported Eyes: Yes: no symptom reported Cardiovascular: Yes edema Gastrointestional: Yes: melena Genitourinary: Yes: no symptom reported Musculoskeletal: Yes: no symptom reported Skin: Yes color change Psychiatric/Neurological: Yes: no symptom reported Endocrine: Yes: no symptom reported Physical Exam General Appearance: no apparent distress Skin: warm Respiratory: bilateral CTA Heart: S1S2 Abdomen: soft, bowel sounds present Genitourinary: bladder flat Extremities: pulses present, edema Neurology: alert, oriented Musculoskeletal: Osteoarthritis Assessment Assessment IMP NATASHA RESOLVED CKD STAGE 4 WITH CR OF2.1 TO 2.6 AT BASELINE 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
[2019-11-11 14:39] VITALS: BP 153/61
--- NOTE | 2019-11-11 14:47 | PDOC ---
MOY VELAZQUEZ EVENT DECORATOR 11/11/19 1447: CARDIO Progress Notes Date and Time Date of Service 11/11/2019 Time of Evaluation 1430 Subjective Subjective: No Chest Pain, No shortness of breath, No Palpitations Vitals Vitals Vital Signs Date Time Temp Pulse Resp B/P (MAP) Pulse Ox O2 Delivery O2 Flow Rate FiO2 11/11/19 10:28 98.1 96 26 141/60 (87) 98 Nasal Cannula 5.0 98.1 Weight Weight [ ] Input and Output Intake and Output Intake and Output 11/11/19 07:00 Intake Total 1800 ml Output Total 6125 ml Balance -4325 ml Intake Oral 1500 ml IV Total 300 ml Output Urine Total 6125 ml # Bowel Movements 1 Laboratory Labs Laboratory Tests Test 11/10/19 16:02 11/10/19 21:22 11/11/19 07:11 11/11/19 09:15 Glucose (Fingerstick) 184 mg/dL (70-99) 175 mg/dL (70-99) 149 mg/dL (70-99) Sodium Level 143 mmol/L (136-145) Potassium Level 4.3 mmol/L (3.5-5.1) Chloride Level 105 mmol/L (98-107) Carbon Dioxide Level 36 mmol/L (21-32) Anion Gap 2 (6-14) Blood Urea Nitrogen 68 mg/dL (8-26) Creatinine 2.1 mg/dL (0.7-1.3) Estimated GFR (Cockcroft-Gault) 31.6 BUN/Creatinine Ratio 32 (6-20) Glucose Level 187 mg/dL (70-99) Calcium Level 8.3 mg/dL (8.5-10.1) Magnesium Level 2.4 mg/dL (1.8-2.4) Total Bilirubin 0.3 mg/dL (0.2-1.0) Aspartate Amino Transf (AST/SGOT) 16 U/L (15-37) Alanine Aminotransferase (ALT/SGPT) 16 U/L (16-63) Alkaline Phosphatase 51 U/L (46-116) Total Protein 5.3 g/dL (6.4-8.2) Albumin 2.0 g/dL (3.4-5.0) Albumin/Globulin Ratio 0.6 (1.0-1.7) Test 11/11/19 10:25 11/11/19 11:07 White Blood Count 6.1 x10^3/uL (4.0-11.0) Red Blood Count 2.67 x10^6/uL (4.30-5.70) Hemoglobin 7.4 g/dL (13.0-17.5) Hematocrit 23.2 % (39.0-53.0) Mean Corpuscular Volume 87 fL (79-100) Mean Corpuscular Hemoglobin 28 pg (25-35) Mean Corpuscular Hemoglobin Concent 32 g/dL (31-37) Red Cell Distribution Width 15.9 % (11.5-14.5) Platelet Count 351 x10^3/uL (140-400) Glucose (Fingerstick) 214 mg/dL (70-99) Review of Systems Constitutional: yes: weakness, alert, oriented Ears/Nose/Throat: Yes: no symptom reported Eyes: Yes: no symptom reported Cardiovascular: Yes edema Gastrointestional: Yes: melena Genitourinary: Yes: no symptom reported Musculoskeletal: Yes: no symptom reported Skin: Yes color change Psychiatric/Neurological: Yes: no symptom reported Endocrine: Yes: no symptom reported Physical Exam HEENT: Neck Supple W Full Motion Chest: Symmetric LUNGS: Clear to Auscultation Heart: RRR (SR) Abdomen: Other (obese) Extremities: No Calf Tenderness Neurology: alert, oriented, follow commands Assessment Assessment 1. GIB; EGD with ulcer, erosive gastritis, and duodenitis 2. Acute blood loss anemia; s/p multiple units of PRBCs Hgb at 7.4 3. Warfarin coagulopathy; s/p FFP. INR > 10 POA. Now 1.4 4. PAFIB; maintaining SR 5. Hx DVT/PE. S/p IVC filter 6. Hypertension: controlled 7. Hyperlipidemia 8. NATASHA on CKD4 9. COPD 10. Obesity Recommendations 1. Poor candidate for chronic anticoagulation given his anemia, GIB. Unable to utlize ASA as well due to current PUD. CrCl approx 50 given his size. Likely unstable for further warfarin use but could utilize eliquis once cleared with GI for stroke prevention and referral for LAAO 2. Follow up with outpt cardiology 3. Secondary prevention measures. Justicifation of Admission Dx: Justifications for Admission: Justification of Admission Dx: Yes FAIZAN WEINER MD 11/11/19 1525: CARDIO Progress Notes Assessment Assessment Patient seen and examined. Agree with STEAM FLATTENER's assessment and plan. EGD with antral gastric ulcer, erosive gastritis/duodenitis noted. Treat per GI team. Acute blood loss anemia s/p transfusion Continue to hold warfarin. Patient probably a poor candidate for long-term anticoagulation. Will consider outpatient referral for LAAO. PAF maintaining sinus rhythm. Continue current medical regimen. MOY VELAZQUEZ APRN Nov 11, 2019 14:47 FAIZAN WEINER MD Nov 11, 2019 15:25
--- NOTE | 2019-11-11 20:17 | NUR ---
Discharge Note: RHONDA BRIONES [address] Discharge instructions and discharge home medications reviewed with Other facility and a copy given. All questions have been answered and understanding verbalized. The following instructions and handouts were given:Report given to PANCHO Soto at [place] at 1625. Diet, medications IVC filter, wounds and wound care at [facility] wound care. Patient left without his slippers and his card for the IVC filter. I spoke with PANCHO Soto and she said they are bringing a patient here on Thursday and will picker these items at that time. Discontinued lines and drains: IVs remove. no lines present at discharge. [facility] Wheel[facility]
[2019-11-11] MEDS ORDERED: FERROUS SULFATE 325 MG TABLET. PO SCH (21:00)
== END 2019-11-11 16:30 | DRG 802 ==
LOC: 1 WEST ICU 04:30 → 2 SOUTH 11-08 20:38
PROVIDERS: ADMIT Internal Medicine; ATTEND Internal Medicine
PROC: 30233K1 Transfusion of Nonautologous Frozen Plasma into Peripheral Vein, Percutaneous Approach (ICD-10-PCS; principal; 2019-11-05)
PROC: 30233N1 Transfusion of Nonautologous Red Blood Cells into Peripheral Vein, Percutaneous Approach (ICD-10-PCS; 2019-11-05)
PROC: 0DB68ZX Excision of Stomach, Via Natural or Artificial Opening Endoscopic, Diagnostic (ICD-10-PCS; 2019-11-06)
PROC: 06H03DZ Insertion of Intraluminal Device into Inferior Vena Cava, Percutaneous Approach (ICD-10-PCS; 2019-11-08)
PROC: 5A09357 Assistance with Respiratory Ventilation, Less than 24 Consecutive Hours, Continuous Positive Airway Pressure (ICD-10-PCS; 2019-11-09)
DX: D68.32 Hemorrhagic disorder due to extrinsic circulating anticoagulants (principal); N17.0 Acute kidney failure with tubular necrosis; J96.01 Acute respiratory failure with hypoxia; J96.02 Acute respiratory failure with hypercapnia; K29.71 Gastritis, unspecified, with bleeding; K29.81 Duodenitis with bleeding; K26.4 Chronic or unspecified duodenal ulcer with hemorrhage; K25.4 Chronic or unspecified gastric ulcer with hemorrhage; D62 Acute posthemorrhagic anemia; E66.2 Morbid (severe) obesity with alveolar hypoventilation; I13.0 Hypertensive heart and chronic kidney disease with heart failure and stage 1 through stage 4 chronic kidney disease, or unspecified chronic kidney disease; J98.11 Atelectasis; L03.115 Cellulitis of right lower limb; L03.116 Cellulitis of left lower limb; N18.4 Chronic kidney disease, stage 4 (severe); L97.919 Non-pressure chronic ulcer of unspecified part of right lower leg with unspecified severity; L97.929 Non-pressure chronic ulcer of unspecified part of left lower leg with unspecified severity; E11.22 Type 2 diabetes mellitus with diabetic chronic kidney disease; E11.42 Type 2 diabetes mellitus with diabetic polyneuropathy; E78.5 Hyperlipidemia, unspecified; I87.2 Venous insufficiency (chronic) (peripheral); J44.9 Chronic obstructive pulmonary disease, unspecified; T45.515A Adverse effect of anticoagulants, initial encounter; E11.51 Type 2 diabetes mellitus with diabetic peripheral angiopathy without gangrene; E87.5 Hyperkalemia; I50.9 Heart failure, unspecified; K21.9 Gastro-esophageal reflux disease without esophagitis; M19.90 Unspecified osteoarthritis, unspecified site; I48.0 Paroxysmal atrial fibrillation; D50.9 Iron deficiency anemia, unspecified; Z20.828 Contact with and (suspected) exposure to other viral communicable diseases; Z79.01 Long term (current) use of anticoagulants; Z82.49 Family history of ischemic heart disease and other diseases of the circulatory system; Z83.3 Family history of diabetes mellitus; Z86.711 Personal history of pulmonary embolism; Z86.718 Personal history of other venous thrombosis and embolism; Z87.891 Personal history of nicotine dependence; Z88.8 Allergy status to other drugs, medicaments and biological substances; Z91.011 Allergy to milk products; Y92.89 Other specified places as the place of occurrence of the external cause; Z68.38 Body mass index [BMI] 38.0-38.9, adult
CPT/HCPCS: 36415; 36600; 37191; 43239; 71045; 76937; 80053; 82805; 82962; 83540; 83550; 83605; 83735; 85014; 85018; 85025; 85027; 85610; 86850; 86900; 86901; 86920; 86927; 87426; 88305; 88342; 93005; 94660; C1769; C1892; C1894; C9113; J0881; J1160; J1756; J1815; J1940; J2020; J2370; J2543; J2704; J3430; J3490; J7030; J7042; J7050; P9016; P9017; Q9967; 97110-GP; 97116-GP; 97530-GO; 97530-GP; 97535-GO; G0378; U0003-CS

== ENCOUNTER 2020-02-21 06:21 | Inpatient (IN) | payer MEDICARE ==
[2020-02-21] VITALS (18 sets, daily range): BP systolic 76–149; BP diastolic 51–80
[~2020-02-21] VITALS: Ht 195.6 cm; Wt 169.6 kg
[~2020-02-21 06:21] MED LIST: ASPI-886 PO; FENO160T PO; METO5TAB4 PO; MULT-735 PO; PANT40TA77 PO; POLY17PO29 PO; PROP40TA PO; SIMV40TA18 PO; SUCR1TAB35 PO; TORS20TA2 PO; WARF6TAB47 PO
[2020-02-21] MEDS ORDERED: MORPHINE SULFATE 4 MG/ML VIAL. IV PRN (06:45)
[2020-02-21] MEDS ORDERED: 0.9 % SODIUM CHLORIDE 10 ML DISP.SYRIN. IV PRN ×2 (06:45→12:15)
[2020-02-21] MEDS ORDERED: MORPHINE SULFATE 2 MG/ML VIAL. IV PRN (06:45)
[2020-02-21] MEDS ORDERED: fentaNYL PF VIAL 100 MCG/2 ML VIAL IV PRN ×2 (06:45)
--- NOTE | 2020-02-21 06:48 | NUR ---
Received patient via EMS from [facility] to ICU room 106 at 0610. Moved to pt bed and all monitors applied. Dr Godinez called with orders received. Will be in to see this am. Pt fully ventilated and lightly sedated. On arrival, RT at bedside and performed large amount of suctioning with lavage with copious amount beige thick sputum returned. VSS at this time.
[2020-02-21] MEDS: IV NORMAL SALINE 1000ML BAG 1,000 ML IV SCH ×2 (07:27→17:24)
--- NOTE | 2020-02-21 07:40 | PDOC1 ---
History and Physical Date of Admission Date of Admission DATE: 02/21/20 TIME: 07:40 Past Medical History Cardiovascular: AFIB, HTN, Hyperlipidemia Pulmonary: COPD, Pulmonary embolus GI: GERD Heme/Onc: No pertinent hx Hepatobiliary: No pertinent hx Psych: No pertinent hx Musculoskeletal: Osteoarthritis Rheumatologic: No pertinent hx Infectious disease: No pertinent hx Renal/: Chronic renal insuff Endocrine: Diabetes Past Surgical History Past Surgical History: Other Family History Family History: Diabetes, Hypertension Social History ALCOHOL: rare Drugs: None Current Medications Current Medications Current Medications Sodium Chloride (Normal Saline Flush) 3 ml QSHIFT PRN IV AFTER MEDS AND BLOOD DRAWS; Start 02/21/20 at 06:45 Sodium Chloride 1,000 ml @ 100 mls/hr Q10H IV Last administered on 02/21/20at 07:27; Start 02/21/20 at 06:45 Fentanyl Citrate 30 ml @ 0 mls/hr CONT PRN IV SEE PROTOCOL Last administered on 02/21/20at 07:26; Start 02/21/20 at 06:45 Propofol 100 ml @ 0 mls/hr CONT PRN IV PER PROTOCOL; Start 02/21/20 at 06:45 Fentanyl Citrate (Fentanyl 2ml Vial) 25 mcg PRN Q1HR PRN IV SEE COMMENTS; Start 02/21/20 at 06:45 Fentanyl Citrate (Fentanyl 2ml Vial) 50 mcg PRN Q1HR PRN IV SEE COMMENTS; Start 02/21/20 at 06:45 Famotidine (Pepcid Vial) 20 mg BID IVP ; Start 02/21/20 at 09:00 Morphine Sulfate (Morphine Sulfate) 2 mg PRN Q1HR PRN IV SEE COMMENTS.; Start 02/21/20 at 06:45 Morphine Sulfate (Morphine Sulfate) 4 mg PRN Q1HR PRN IV SEE COMMENTS.; Start 02/21/20 at 06:45 Midazolam HCl 100 ml @ 0 mls/hr CONT PRN IV SEE PROTOCOL; Start 02/21/20 at 06:45 Active Scripts Active Carafate (Sucralfate) 1 Gm Tablet 1 Tab PO QID 30 Days Protonix (Pantoprazole Sodium) 40 Mg Tablet.dr 40 Mg PO DAILYAC 30 Days Miralax (Polyethylene Glycol 3350) 17 Gm Powd.pack 1 Packet PO DAILY 2 Days dissolve in water Metolazone 5 Mg Tablet 5 Mg PO DAILY 30 Days Reported Simvastatin 40 Mg Tablet 1 Tab PO QHS Fenofibrate 160 Mg Tablet 1 Tab PO DAILY Torsemide 20 Mg Tablet 2 Tab PO DAILY Propranolol Hcl 40 Mg Tablet 1 Tab PO BID One-Daily Multi-Vitamin (Multivitamin) 1 Each Tablet 1 Tab PO DAILY 30 Days Aspirin Ec (Aspirin) 81 Mg Tablet. 1 Tab PO DAILY Allergies Allergies: Coded Allergies: Milk Containing Products (Verified Allergy, Intermediate, 11/06/19) chlordiazepoxide (Verified Allergy, Intermediate, 11/06/19) insulin glargine (Verified Allergy, Intermediate, increased HR, 11/06/19) Vitals Vitals Vital Signs Date Time Temp Pulse Resp B/P (MAP) Pulse Ox O2 Delivery O2 Flow Rate FiO2 02/21/20 07:26 28 100 Ventilator 02/21/20 06:30 97.1 83 108/80 (89) 97.1 VTE Prophylaxis Ordered VTE Prophylaxis Devices: Yes Justifications for Admission Other Justification RHONDA CORREIA MD Feb 21, 2020 07:40
[2020-02-21] MEDS: MIDAZOLAM 100mg/100ml NS BAG 100 ML IV PRN ×2 (07:42→14:49)
[2020-02-21] MEDS: PROPOFOL 100 ML IV PRN (08:03)
[2020-02-21 08:04] LABS: BASE EXCESS ABG 9 mmol/L (-3-3); HCO3 ABG 37 mmol/L (21-28); PO2 ABG 110 mmHg (65-108); SAT O2 ABG 97 % (92-99)
[2020-02-21 08:13] LABS: FIO2 ABG 100%+8; PCO2 ABG 75 mmHg (35-46)
[2020-02-21] MEDS ORDERED: FAMOTIDINE 20 MG/2 ML VIAL IVP SCH ×2 (09:00→13:00)
--- NOTE | 2020-02-21 09:07 | RAD ---
EXAM: XR CHEST 1V 02/21/2020 8:38 AM CLINICAL INDICATION: ET tube placement COMPARISON: Chest radiograph 02/21/2020 8:08 AM FINDINGS: The endotracheal tube terminates approximately 6.3 cm above the senait. Nasogastric tube e nters the stomach and terminates out of view. Cardiac silhouette is unchanged. Right perihilar opacit ies and small pleural effusions are unchanged. No pneumothorax. IMPRESSION: New endotracheal tube in appropriate position. NG tube courses into the stomach and term inates out of view. Electronically signed by: Brie Cartwright MD (02/21/2020 9:05 AM) [id number]
[2020-02-21] MEDS ORDERED: APIX5TAB PO (11:25)
[2020-02-21] MEDS ORDERED: INSU100V8 SQ (11:25)
[2020-02-21] MEDS ORDERED: GLIM1TAB7 PO (11:25)
[2020-02-21] MEDS ORDERED: PROP40TA PO (11:25)
[2020-02-21] MEDS ORDERED: CHOL500021 PO (11:25)
[2020-02-21] MEDS ORDERED: HYDR-2765 PO (11:25)
[2020-02-21] MEDS ORDERED: FURO40TA4 PO (11:25)
[2020-02-21] MEDS ORDERED: INSU100C SQ (11:25)
--- NOTE | 2020-02-21 11:32 | PDOC1 ---
History and Physical Date of Admission Date of Admission DATE: 02/21/20 TIME: 11:32 Identification/Chief Complaint Chief Complaint RESP FAILURE, TRANSFER [facility] covid 19 rapid neg History of Present Illness History of Present Illness 69 yr old male, transfer from [place] due to AMS, required vent support for respiratory failure BECAME HYPOXIC 0330, INTUBATED IN ER, WAS OBTUNDED, HAD ELEVATED D-DIMER BUN 32, CR 2.1 UDS NEG, PRO-BNP 5556 WAS CODE STROKE ON PRESENTATION DUE TO AMS RESIDENT OF [facility] , admitted by DR CASTANEDA HERE ON NOV 2019 D DIMER 1.82 BUT RENAL FX PROHIBITS CTA CHEST, DEFER TO PULM poor candidate for long-term anticoagulation. WAS outpatient referral for LAAO by cardiology Past Medical History Past Medical History PAST MEDICAL HISTORY: Positive for diabetes mellitus, hypertension, obesity, obstructive lung disease, hyperlipidemia, peripheral vascular disease, neuropathy, pulmonary embolism, venous stasis dermatitis. SOCIAL HISTORY: Negative for smoking, alcohol, or illicit drug use. ALLERGIES: LISTED ALLERGIC TO INSULIN AND CHLORDIAZEPOXIDE. CURRENT MEDICATIONS: Reviewed. Cardiovascular: AFIB, HTN, Hyperlipidemia Pulmonary: COPD, Pulmonary embolus GI: GERD Heme/Onc: No pertinent hx Hepatobiliary: No pertinent hx Psych: No pertinent hx Musculoskeletal: Osteoarthritis Rheumatologic: No pertinent hx Infectious disease: No pertinent hx Renal/: Chronic renal insuff Endocrine: Diabetes Past Surgical History Past Surgical History: Other Family History Family History: Diabetes, Hypertension Social History Smoke: <1 pack per day ALCOHOL: rare Drugs: None Current Medications Current Medications Current Medications Sodium Chloride (Normal Saline Flush) 3 ml QSHIFT PRN IV AFTER MEDS AND BLOOD DRAWS; Start 02/21/20 at 06:45 Sodium Chloride 1,000 ml @ 100 mls/hr Q10H IV Last administered on 02/21/20at 07:27; Start 02/21/20 at 06:45 Fentanyl Citrate 30 ml @ 0 mls/hr CONT PRN IV SEE PROTOCOL Last administered on 02/21/20at 07:26; Start 02/21/20 at 06:45; Stop 02/21/20 at 10:59; Status DC Propofol 100 ml @ 0 mls/hr CONT PRN IV PER PROTOCOL Last administered on 02/21/20at 08:03; Start 02/21/20 at 06:45 Fentanyl Citrate (Fentanyl 2ml Vial) 25 mcg PRN Q1HR PRN IV SEE COMMENTS; Start 02/21/20 at 06:45 Fentanyl Citrate (Fentanyl 2ml Vial) 50 mcg PRN Q1HR PRN IV SEE COMMENTS; Start 02/21/20 at 06:45 Famotidine (Pepcid Vial) 20 mg BID IVP Last administered on 02/21/20at 10:23; Start 02/21/20 at 09:00 Morphine Sulfate (Morphine Sulfate) 2 mg PRN Q1HR PRN IV SEE COMMENTS.; Start 02/21/20 at 06:45 Morphine Sulfate (Morphine Sulfate) 4 mg PRN Q1HR PRN IV SEE COMMENTS.; Start 02/21/20 at 06:45 Midazolam HCl 100 ml @ 0 mls/hr CONT PRN IV SEE PROTOCOL Last administered on 02/21/20at 07:42; Start 02/21/20 at 06:45 Fentanyl Citrate 55 ml @ 0 mls/hr CONT PRN IV PAIN/SEDATION; Start 02/21/20 at 11:00 Active Scripts Active Carafate (Sucralfate) 1 Gm Tablet 1 Tab PO QID 30 Days Protonix (Pantoprazole Sodium) 40 Mg Tablet.dr 40 Mg PO DAILYAC 30 Days Miralax (Polyethylene Glycol 3350) 17 Gm Powd.pack 1 Packet PO DAILY 2 Days dissolve in water Reported D3-50 (Cholecalciferol (Vitamin D3)) 50,000 Unit Capsule 1,000 Unit PO DAILY Propranolol Hcl 40 Mg Tablet 40 Mg PO BID Furosemide 40 Mg Tablet 40 Mg PO BID Eliquis (Apixaban) 5 Mg Tablet 5 Mg PO BID Humalog (Insulin Lispro) 100 Unit/1 Ml Cartridge 100 Unit SQ TIDACHC Lantus (Insulin Glargine,Hum.rec.anlog) 100 Unit/1 Ml Vial 35 Unit SQ HS Hydrocodone-Apap 7.5-325 (Hydrocodone Bit/Acetaminophen) 1 Tab Tablet 1 Tab PO PRN Q6HRS PRN Glimepiride 1 Mg Tablet 1 Mg PO DAILY Simvastatin 40 Mg Tablet 1 Tab PO QHS Fenofibrate 160 Mg Tablet 145 Mg PO HS Propranolol Hcl 40 Mg Tablet 1 Tab PO BID One-Daily Multi-Vitamin (Multivitamin) 1 Each Tablet 1 Tab PO DAILY 30 Days Allergies Allergies: Coded Allergies: Milk Containing Products (Verified Allergy, Intermediate, 11/06/19) chlordiazepoxide (Verified Allergy, Intermediate, 11/06/19) insulin glargine (Verified Allergy, Intermediate, increased HR, 11/06/19) ROS Review of System unable to review, on vent, sedated Respiratory: YES: Shortness of breath Physical Exam Physical Exam sedated on vent NECK: Supple, no JVP, no lymphadenopathy. LUNGS: Clear. HEART: S1, S2 regular. ABDOMEN: Soft, nontender. No organomegaly. EXTREMITIES: The patient does have lower extremity superficial weeping ulcers bilaterally. Venous insufficiency and stasis dermatitis Breasts: Not examined Abdomen: Soft, No tenderness Rectal Exam: not examined Vitals Vitals Vital Signs Date Time Temp Pulse Resp B/P (MAP) Pulse Ox O2 Delivery O2 Flow Rate FiO2 02/21/20 10:10 83 28 118/68 (85) 100 Ventilator 02/21/20 06:30 97.1 97.1 Labs Labs Laboratory Tests Test 02/21/20 06:30 02/21/20 07:50 SARS-CoV-2 Antigen (Rapid) Negative (NEGATIVE) O2 Saturation 97 % (92-99) Arterial Blood pH 7.31 (7.35-7.45) Arterial Blood pCO2 at Patient Temp 75 mmHg (35-46) Arterial Blood pO2 at Patient Temp 110 mmHg (65-108) Arterial Blood HCO3 37 mmol/L (21-28) Arterial Blood Base Excess 9 mmol/L (-3-3) FiO2 100%+8 Laboratory Tests Test 02/21/20 06:30 02/21/20 07:50 SARS-CoV-2 Antigen (Rapid) Negative (NEGATIVE) O2 Saturation 97 % (92-99) Arterial Blood pH 7.31 (7.35-7.45) Arterial Blood pCO2 at Patient Temp 75 mmHg (35-46) Arterial Blood pO2 at Patient Temp 110 mmHg (65-108) Arterial Blood HCO3 37 mmol/L (21-28) Arterial Blood Base Excess 9 mmol/L (-3-3) FiO2 100%+8 Images Images DPOA REVIEW 18 MIN to patient portal What Is a Power of Electric Meter Installer? A power of finance attorney (POA) is a legal document giving one person (the agent or xyzqibhl-ak-vmzo) the power to act for another person (the principal). The agent can have broad legal authority or limited authority to make legal decisions about the principal's property, finances or medical care. The power of finance attorney is frequently used in the event of a principal's illness or disability, or when the principal can't be present to sign necessary legal documents for financial transactions. A power of finance attorney can end for a number of reasons, such as when the principal dies, the principal revokes it, a court invalidates it, the principal divorces their spouse, who happens to be the agent, or the agent can no longer carry out the outlined responsibilities. Conventional POAs lapse when the creator becomes incapacitated, but a durable POA remains in force to enable the agent to manage the creators affairs, and a springing POA comes into effect only if and when the creator of the POA b ecomes incapacitated. A medical or healthcare POA enables an agent to make medical decisions on behalf of an incapacitated person. [employer] Takeaways A power of finance attorney (POA) is a legal document giving one person, the agent or zpncvobz-wh-kyly the power to act for another person, the principal. The agent can have broad legal authority or limited authority to make decisions about the principal's property, finances or medical care. The power of finance attorney is often used when a principal becomes ill or disabled, or when they can't be present to sign necessary legal documents for financial transactions. Understanding Power of Electric Meter Installer A power of finance attorney should be considered when planning for long-term care. There are different types of POAs that fall under either a general power of finance attorney or limited power of finance attorney. A general power of finance attorney acts on behalf of the principal in any and all matters, as allowed by the state. The agent under a general POA agreement may be authorized to take care of issues such as handling bank accounts, signing checks, selling property and assets like stocks, f A limited power of finance attorney gives the agent the power to act on behalf of the principal in specific matters or events. For example, the limited POA may ex plicitly state that the agent is only allowed to manage the principal's prison accounts. A limited POA may also be limited to a specific period of time (e.g., if the principal will be out of the country for, say, two years). Most kelly of finance attorney documents allow an agent to represent the principal in all property and financial matters as long as the principals mental state of mind is good. If a situation occurs where the principal becomes incapable of making decisions for him or herself, the POA agreement would automatically end. However, someone who wants the POA to remain in effect after the persons health deteriorates would need to sign a durable power of finance attorney (DPOA). What is an advance directive? An advance directive is a legal document that says how you want to be cared for if you are unable to make decisions. You can include what medical treatments you would want and who you would trust to make decisions for you. An advance directive can also include other legal documents. A living will is a list of treatment preferences. It can be used to indicate whether you would want cardiopulmonary resuscitation (CPR), tube feedings, a breathing machine, or certain medicines, like antibiotics. The durable power of finance attorney for health care document identifies the person you would want to make medical decisions for you. This person is also called a proxy. Your proxy should be familiar with your values and wishes. How do I get started? You can get advance directive documents for your state from your doctor's office or from http://www.caringinfo.org. Review the forms, and ask your doctor if you have any questions. Pick a person to be your proxy, and talk it over with that person. Single view of the chest. 02/21/2020 2:54 PM Indication: Reason: Central line placement / Spl. Instructions: / History: Comparison: Chest radiograph earlier today Findings: There is a right internal jugular central line with tip at the cavoatrial junction. Endotracheal tube and enteric tube appear stable. Small to moderate pleural effusion [id number] right pleural effusion and probable small left pleural effusion noted. Central vascular congestion and interstitial edema persists. No pneumothorax is identified. No osseous changes noted in the interim. IMPRESSION: 1.New right internal jugular central line with tip at the cavoatrial junction 2. Otherwise stable chest radiograph Electronically signed by: Luis Miguel Art MD (02/21/2020 3:16 PM) [id number] DICTATED and SIGNED BY: LUIS MIGUEL ART MD DATE: 02/21/20 [id number] 0 Procedures: 1. Inferior venacavogram 2. Placement of an IVC filter Clinical Indication: Hx of multiple PEs; Coumadin on hold. The risks and benefits of the procedure were discussed with the patient and/or her wireless sales representative. Informed consent was obtained. Timeout procedure was performed. . Ultrasound evaluation demonstrates the right internal jugular vein to be patent and compressible. The right neck was prepped and draped using maximum sterile barrier technique. Using micropuncture technique, under direct ultrasound guidance the right internal jugular vein was accessed.. Reference ultrasound images were saved the medical record. A 5 Libyan sheath was placed. A 5 Libyan catheter was advanced into the inferior vena cava. An inferior venacavogram was obtained demonstrating renal inflow. No thrombus or other focal abnormality was seen. Next a [employer] [place] retrievable IVC filter was placed into the infrarenal IVC. The filter is well seated. Position was confirmed with follow-up venogram sheath was removed and manual pressure was held. No immediate complications were identified. Total fluoroscopy time: 3.0 min Dose area product: 220 Gycm2 Impression: Placement of retrievable IVC filter as described. DICTATED and SIGNED BY: LUIS MIGUEL ART MD DATE: 11/08/19 1443 PROCEDURE Procedure EGD melena, GI bleeding, Anemia anesthesia- propofol Findings; E- normal G- 4 mm non bleeding antral gastric ulcer and erosive gastritis (bx) D- 4 mm DU without bleeding, erosive duodenitis without active bleeding BUT a few flecks of melena/hematin in second portion of duodenum , supporting recent bleeding which has stopped Plan- PO protonix for 3 months PO carafate for one month hold coumadin for 1 week if feasible and then when restarted, close mo nitoring of INR going forward LISSY ARTEAGA MD Nov 06, 2019 11:25 SIGNED BY: LISSY ARTEAGA MD DATE: 11/06/19 1125 EXAM: XR CHEST 1V 02/21/2020 8:38 AM CLINICAL INDICATION: ET tube placement COMPARISON: Chest radiograph 02/21/2020 8:08 AM FINDINGS: The endotracheal tube terminates approximately 6.3 cm above the senait. Nasogastric tube enters the stomach and terminates out of view. Cardiac silhouette is unchanged. Right perihilar opacities and small pleural effusions are unchanged. No pneumothorax. IMPRESSION: New endotracheal tube in appropriate position. NG tube courses into the stomach and terminates out of view. Electronically signed by: Brie Cartwright MD (02/21/2020 9:05 AM) [id number] DICTATED and SIGNED BY: BRIE CARTWRIGHT MD VTE Prophylaxis Ordered VTE Prophylaxis Devices: Yes VTE Pharmacological Prophylaxi: Yes Assessment/Plan Assessment/Plan impression 1. Acute hypoxic / severe hypercapnic respiratory failure, 2. Chronic obstructive pulmonary disease. 3. Type 2 diabetes mellitus with peripheral neuropathy. 4. Hypertension. 5. Hyperlipidemia. 6. atrial fibrillation 7. History of deep vein thrombosis and pulmonary emboli x 3 for which he was on Coumadin. has now an inferior vena cava filter. Placement of retrievable IVC filter 11/12 8. bilateral lower extremity //chronic venous stasis dermatitis 9. morbid obesity 10. PUI COVID 19 11. 4 mm non bleeding antral gastric ulcer and erosive gastritis (bx) 11/12 12. NATASHA 13, ISCHEMIC CVD CT HEAD 14. CODE STROKE IN ER 15. ACUTE METABOLIC ENCEPHALOPATHY 16, POSSIBLE ASPIRATION, PNEUMONIA, SHOCK plan icu bed pulm consult cardiology consult GI CONSULT NEPHROLOGY CONSULT Neurology consult ID CONSULT ECHO 110 MIN CC TIME Justifications for Admission Other Justification RHONDA CORREIA MD Feb 21, 2020 11:32
[2020-02-21] MEDS: fentaNYL HIGH DOSE PCA 55 ML IV PRN (11:45)
--- NOTE | 2020-02-21 12:11 | PDOC2 ---
DINO SAHA [employer] 02/21/20 1211: CARDIAC CONSULT DATE OF CONSULT Date of Consult DATE: 02/21/20 TIME: 12:10 REASON FOR CONSULT Reason for Consult: AFIB, respiratory failure REFERRING PHYSICIAN Referring Physician: Dr. Sawyer SOURCE Source: Chart review HISTORY OF PRESENT ILLNESS HISTORY OF PRESENT ILLNESS This is a 69 yo male who presented from [facility] [place] [place] secondary to altered mental status. Was last know to be well at dinner. Became unresponsive and was taken to [facility] for further evaluation and treatment. Was noted with respiratory failure and required intubation. CXR with vascular congestion, possible infiltrate. NT Pro BNP 5500. Has a history of AFIB, which prompted this consult. Is presently SR. HPI obtain from chart review as patient is intubated, sedated. Has a recent history of GIB, gastric ulcer. Eliquis was discontinued at that time. Per [facility] records, patient is presently taking Eliquis 5mg PO daily. 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, IVC filter ) FAMILY HISTORY Family History: Diabetes SOCIAL HISTORY Smoke: Quit ALCOHOL: other (h/o heavy use- quit ) CURRENT MEDICATIONS CURRENT MEDICATIONS Current Medications Medications (Trade) Dose Ordered Sig/Dulce Route PRN Reason Start Time Stop Time Status Last Admin Dose Admin Sodium Chloride 1,000 ml @ 100 mls/hr Q10H IV 02/21/20 06:45 02/21/20 07:27 Fentanyl Citrate 30 ml @ 0 mls/hr CONT PRN IV SEE PROTOCOL 02/21/20 06:45 02/21/20 10:59 DC 02/21/20 07:26 Propofol 100 ml @ 0 mls/hr CONT PRN IV PER PROTOCOL 02/21/20 06:45 02/21/20 08:03 Famotidine (Pepcid Vial) 20 mg BID IVP 02/21/20 09:00 02/21/20 10:23 Midazolam HCl 100 ml @ 0 mls/hr CONT PRN IV SEE PROTOCOL 02/21/20 06:45 02/21/20 07:42 Fentanyl Citrate 55 ml @ 0 mls/hr CONT PRN IV PAIN/SEDATION 02/21/20 11:00 02/21/20 11:45 ALLERGIES ALLERGIES: Coded Allergies: Milk Containing Products (Verified Allergy, Intermediate, 11/06/19) chlordiazepoxide (Verified Allergy, Intermediate, 11/06/19) insulin glargine (Verified Allergy, Intermediate, increased HR, 11/06/19) ROS Review of System unobtainable PHYSICAL EXAM General: Other (sedated ) HEENT: Atraumatic Lungs: Other (mechanical vent) Heart: Regular rate, Other (distant heart tones ) Abdomen: Other (obese ) Extremities: Other (1+ bilateral LE edema. Chronic bilateral LE venous stasis dermatitis ) Psych/Mental Status: Other (sedated ) MUSCULOSKELETAL: Osteoarthritic changes both hands VITALS/I&O VITALS/I&O: Vital Signs Date Time Temp Pulse Resp B/P (MAP) Pulse Ox O2 Delivery O2 Flow Rate FiO2 02/21/20 11:50 100 Ventilator 02/21/20 11:45 28 02/21/20 11:31 84 136/73 (94) 02/21/20 06:30 97.1 97.1 I & O 02/20/20 02/20/20 02/21/20 15:00 23:00 07:00 Output Total 500 ml Balance -500 ml LABS Lab: Laboratory Tests Test 02/21/20 06:30 02/21/20 07:50 SARS-CoV-2 Antigen (Rapid) Negative (NEGATIVE) O2 Saturation 97 % (92-99) Arterial Blood pH 7.31 (7.35-7.45) L Arterial Blood pCO2 at Patient Temp 75 mmHg (35-46) *H Arterial Blood pO2 at Patient Temp 110 mmHg (65-108) H Arterial Blood HCO3 37 mmol/L (21-28) H Arterial Blood Base Excess 9 mmol/L (-3-3) H FiO2 100%+8 ECHOCARDIOGRAM ECHOCARDIOGRAM <Conclusion> The left ventricle is normal size. The left ventricular systolic function is normal and the ejection fraction is within normal range. The Ejection Fraction is 55-60%. There is mild concentric left ventricular hypertrophy. There is no significant aortic valvular stenosis. Doppler and Color Flow revealed no significant aortic regurgitation. Doppler and Color Flow revealed trace to mild tricuspid regurgitation. There is moderate pulmonary hypertension. The PA pressure was estimated at 42 mmHg. DATE: 02/24/181531 ASSESSMENT/PLAN ASSESSMENT/PLAN 1. Acute respiratory failure with AE COPD, a/c CHF, and possible PNA. s/p intubation 2. Acute on chronic diastolic CHF; Echo 03/13 with preserved LV systolic fu nction . S/p IV Bumex at [facility] 3. PAFIB; Was in AFIB with controlled rate per EKG at [facility]. Presently SR 4. Chronic anemia, recent GIB, PUD (11/12). OAC discontinued at that time. [facility] med list including Eliquis 5mg PO BID. 5. Hx DVT/PE. S/p IVC filter 6. Hypertension: controlled 7. Hyperlipidemia 8. CKD 9. Morbid obesity 10. PUI; rapid COVID negative 02/20 11. AMS, elevated ammonia level Recommendations Resume BB for rate control Mild diuresis with monitoring of renal function Repeat CMP, Mg On Eliquis at [facility] for stroke prophylaxis, h/o DVT. Probable poor candidate for long-term OAC given h/o anemia, PUD, GIB. Consider for LAAO on an outpatient basis Lung optimization, vent management as per pulm FAIZAN WEINER MD 02/21/20 1505: CARDIAC CONSULT ASSESSMENT/PLAN ASSESSMENT/PLAN Agree with TRUSS BUILDER's assessment and plan. Acute respiratory failure secondary to combination of acute COPD exacerbation, acute on chronic diastolic heart failure and possible pneumonia. Covid test pending. Continue diuresis with close monitoring of creatinine. PAF, presented back in sinus rhythm. He is a poor candidate for long-term anticoagulation. Plan outpatient referral for LAAO. Continue vent management per pulmonary team. Thank you for your consultation. DINO SAHA APRN Feb 21, 2020 12:11 FAIZAN WEINER MD Feb 21, 2020 15:05
[2020-02-21] MEDS ORDERED: ONDANSETRON PF 4 MG/2 ML VIAL. IVP PRN (12:15)
[2020-02-21] MEDS ORDERED: PIP/TAZO PER PHARMACY MC PRN (12:15)
[2020-02-21] MEDS ORDERED: BISACODYL 10 MG SUPP.RECT. PR PRN (12:15)
--- NOTE | 2020-02-21 12:41 | PDOC2 ---
CONSULT Date of Consult Date of Consult DATE: 02/21/20 TIME: 12:19 Reason for Consult Reason for Consult: NATASHA Identification/Chief Complaint Chief Complaint Unable to Obtain, he is Intubated on MV History of Present Illness Reason for Visit: History obtained from RN , no progress notes available from [facility] Patient is a 69 yo male who presented from [facility] secondary to altered mental status. He was last known to be well at dinner. Became unresponsive and was taken to [facility] for further evaluation and treatment. At [facility] he was noted with respiratory failure and required intubation. CXR with vascular congestion, possible infiltrate. NT Pro BNP 5500. Has a recent history of GIB, gastric ulcer, NATASHA Eliquis was discontinued at that time.Though Per [place] records, patient is presently taking Eliquis 5mg PO daily, Furosemide . Past Medical History Cardiovascular: AFIB, HTN, Hyperlipidemia Pulmonary: COPD, Pulmonary embolus GI: GERD Heme/Onc: No pertinent hx Hepatobiliary: No pertinent hx Psych: No pertinent hx Musculoskeletal: Osteoarthritis Rheumatologic: No pertinent hx Infectious disease: No pertinent hx Renal/: Chronic renal insuff Endocrine: Diabetes Past Surgical History Past Surgical History: Other Family History Family History: Diabetes, Hypertension Social History <1 pack per day ALCOHOL: rare Drugs: None Lives: with Family Current Medications Current Medications Current Medications Sodium Chloride (Normal Saline Flush) 3 ml QSHIFT PRN IV AFTER MEDS AND BLOOD DRAWS; Start 02/21/20 at 06:45 Sodium Chloride 1,000 ml @ 100 mls/hr Q10H IV Last administered on 02/21/20at 07:27; Start 02/21/20 at 06:45 Fentanyl Citrate 30 ml @ 0 mls/hr CONT PRN IV SEE PROTOCOL Last administered on 02/21/20at 07:26; Start 02/21/20 at 06:45; Stop 02/21/20 at 10:59; Status DC Propofol 100 ml @ 0 mls/hr CONT PRN IV PER PROTOCOL Last administered on 02/21/20at 08:03; Start 02/21/20 at 06:45 Fentanyl Citrate (Fentanyl 2ml Vial) 25 mcg PRN Q1HR PRN IV SEE COMMENTS; Start 02/21/20 at 06:45 Fentanyl Citrate (Fentanyl 2ml Vial) 50 mcg PRN Q1HR PRN IV SEE COMMENTS; Start 02/21/20 at 06:45 Famotidine (Pepcid Vial) 20 mg BID IVP Last administered on 02/21/20at 10:23; Start 02/21/20 at 09:00 Morphine Sulfate (Morphine Sulfate) 2 mg PRN Q1HR PRN IV SEE COMMENTS.; Start 02/21/20 at 06:45 Morphine Sulfate (Morphine Sulfate) 4 mg PRN Q1HR PRN IV SEE COMMENTS.; Start 02/21/20 at 06:45 Midazolam HCl 100 ml @ 0 mls/hr CONT PRN IV SEE PROTOCOL Last administered on 02/21/20at 07:42; Start 02/21/20 at 06:45 Fentanyl Citrate 55 ml @ 0 mls/hr CONT PRN IV PAIN/SEDATION Last administered on 02/21/20at 11:45; Start 02/21/20 at 11:00 Ondansetron HCl (Zofran) 4 mg PRN Q6HRS PRN IVP NAUSEA/VOMITING; Start 02/21/20 at 12:15 Famotidine (Pepcid Vial) 20 mg BID IVP ; Start 02/21/20 at 13:00 Info (Icu Electrolyte Protocol) 1 ea DAILY [facility] ; Start 02/22/20 at 09:00 Sodium Chloride (Normal Saline Flush) 3 ml QSHIFT PRN IV AFTER MEDS AND BLOOD DRAWS; Start 02/21/20 at 12:15 Bisacodyl (Dulcolax Supp) 10 mg PRN DAILY PRN ID CONSTIPATION; Start 02/21/20 at 12:15 Active Scripts Active Carafate (Sucralfate) 1 Gm Tablet 1 Tab PO QID 30 Days Protonix (Pantoprazole Sodium) 40 Mg Tablet.dr 40 Mg PO DAILYAC 30 Days Miralax (Polyethylene Glycol 3350) 17 Gm Powd.pack 1 Packet PO DAILY 2 Days dissolve in water Reported D3-50 (Cholecalciferol (Vitamin D3)) 50,000 Unit Capsule 1,000 Unit PO DAILY Propranolol Hcl 40 Mg Tablet 40 Mg PO BID Furosemide 40 Mg Tablet 40 Mg PO BID Eliquis (Apixaban) 5 Mg Tablet 5 Mg PO BID Humalog (Insulin Lispro) 100 Unit/1 Ml Cartridge 100 Unit SQ TIDACHC Lantus (Insulin Glargine,Hum.rec.anlog) 100 Unit/1 Ml Vial 35 Unit SQ HS Hydrocodone-Apap 7.5-325 (Hydrocodone Bit/Acetaminophen) 1 Tab Tablet 1 Tab PO PRN Q6HRS PRN Glimepiride 1 Mg Tablet 1 Mg PO DAILY Simvastatin 40 Mg Tablet 1 Tab PO QHS Fenofibrate 160 Mg Tablet 145 Mg PO HS Propranolol Hcl 40 Mg Tablet 1 Tab PO BID One-Daily Multi-Vitamin (Multivitamin) 1 Each Tablet 1 Tab PO DAILY 30 Days Allergies Allergies: Coded Allergies: Milk Containing Products (Verified Allergy, Intermediate, 11/06/19) chlordiazepoxide (Verified Allergy, Intermediate, 11/06/19) insulin glargine (Verified Allergy, Intermediate, increased HR, 11/06/19) ROS Review of System Unable to Obtain 2/2 Intubated/MV Physical Exam Physical Exam ENERAL: NAD HEENT: OM moist NECK Supple LUNGS: Clear to auscultation. HEART: S1, S2. ABDOMEN: Obese, EXTREMITIES: bilateral lower extremity edema and erythema +, chronic SKIN: No rash NEUROLOGIC: Alert and oriented x 3. [place] + Vital Signs Vital Signs Date Time Temp Pulse Resp B/P (MAP) Pulse Ox O2 Delivery O2 Flow Rate FiO2 02/21/20 11:50 100 Ventilator 02/21/20 11:45 28 02/21/20 11:31 84 136/73 (94) 02/21/20 06:30 97.1 97.1 Assessment & Plan CKD stage 4 - Cr 2.63 with eGFR 24 in May 2017, used to follow with Dr. Julio. Reviewed labs from [facility]- Cr 2.1 -2.2 , UA unremarkable, Supportive care, strict I/O, monitor , avoid PICC due to ckd stage 4 Currently with good UOP, E-Lytes stable Hx of NATASHA on CKD- Non Oliguric , recent hospitalization in Oct 2019 2/2 GI bleed , Cr improved to baseline prior to dc . Hx of NATASHA and Hyperkalemia in 2018 . Past vazquez no significant proteinuria Acute respiratory failure with AE COPD, a/c CHF, and possible PNA. s/p intubation Acute Anemia in Oct 2019 - s/p EGD with PUD s/p PRBC , FFP's in Oct 2019 DM II- per primary HTN-- stable Acute on chronic diastolic CHF; Echo 03/13 with preserved LV systolic function . S/p IV Bumex at [facility] PAFIB; Was in AFIB with controlled rate per EKG at [facility]. Presently SR Hx DVT/PE. S/p IVC filter Morbid obesity PUI; rapid COVID negative 02/20. AMS, elevated ammonia level Labs Labs Laboratory Tests Test 02/21/20 06:30 02/21/20 07:50 SARS-CoV-2 Antigen (Rapid) Negative (NEGATIVE) O2 Saturation 97 % (92-99) Arterial Blood pH 7.31 (7.35-7.45) Arterial Blood pCO2 at Patient Temp 75 mmHg (35-46) Arterial Blood pO2 at Patient Temp 110 mmHg (65-108) Arterial Blood HCO3 37 mmol/L (21-28) Arterial Blood Base Excess 9 mmol/L (-3-3) FiO2 100%+8 Laboratory Tests Test 02/21/20 06:30 02/21/20 07:50 SARS-CoV-2 Antigen (Rapid) Negative (NEGATIVE) O2 Saturation 97 % (92-99) Arterial Blood pH 7.31 (7.35-7.45) Arterial Blood pCO2 at Patient Temp 75 mmHg (35-46) Arterial Blood pO2 at Patient Temp 110 mmHg (65-108) Arterial Blood HCO3 37 mmol/L (21-28) Arterial Blood Base Excess 9 mmol/L (-3-3) FiO2 100%+8 Review All relevant outside records, renal labs, imaging studies, telemetry/EKG's were reviewed. MULUGETA PEREZ MD Feb 21, 2020 12:41
--- NOTE | 2020-02-21 12:48 | PDOC2 ---
GI CONSULT Date of Service: DATE: 02/21/20 TIME: 12:29 Reason For Consult: HX PUD RECENT GI BLEED HPI: HPI: 69 y/o male evaluated at [facility] for AMS/unresponsiveness noted at care facility. Hypoxic in ER and intubated, transferred to [facility]. CT head w/o acute changes. Labs there note Hgb 9.9, MCV 85, plt 404, INR 1.1, d-dimer 1.82, Cr 2.1, BUN 32, BNP 5556, normal LFTs, and ammonia 66. We are asked to see re: history of PUD and GI bleeding though there have been no reports of bleeding on this occasion. H/o chronic TAN. EGD in 10/[address] Ramsey for melena/GI bleeding, anemia, and Coumadin coagulopathy requiring transfusions (pRBCs, FFP, iron) and vit K showed normal esophagus, 4mm non-bleeding antral ulcer and erosive gastritis, 4mm non-bleeding duodenal ulcer, erosive duodenitis w/o active bleeding but a few flecks of melena/hematin in second portion of duodenum supporting recent bleeding which had stopped. Biopsies were negative for H. pylori. Recommendation for Protonix x 3 months, Carafate x 1 month, and outpt colonoscopy. Per past encounter, no previous colonoscopy. Med list includes Eliquis, pantoprazole, Carafate, and Lasix. Has a couple IV acid-reducers ordered here. 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 Vitals: Vitals: Vital Signs Date Time Temp Pulse Resp B/P (MAP) Pulse Ox O2 Delivery O2 Flow Rate FiO2 02/21/20 11:50 100 Ventilator 02/21/20 11:45 28 02/21/20 11:31 84 136/73 (94) 02/21/20 06:30 97.1 97.1 Labs: Labs: Laboratory Tests Test 02/21/20 06:30 02/21/20 07:50 SARS-CoV-2 Antigen (Rapid) Negative (NEGATIVE) O2 Saturation 97 % (92-99) Arterial Blood pH 7.31 (7.35-7.45) Arterial Blood pCO2 at Patient Temp 75 mmHg (35-46) Arterial Blood pO2 at Patient Temp 110 mmHg (65-108) Arterial Blood HCO3 37 mmol/L (21-28) Arterial Blood Base Excess 9 mmol/L (-3-3) FiO2 100%+8 Allergies: Coded Allergies: Milk Containing Products (Verified Allergy, Intermediate, 11/06/19) chlordiazepoxide (Verified Allergy, Intermediate, 11/06/19) insulin glargine (Verified Allergy, Intermediate, increased HR, 11/06/19) Medications: Current Medications Medications (Trade) Dose Ordered Sig/Dulce Route PRN Reason Start Time Stop Time Status Last Admin Dose Admin Sodium Chloride 1,000 ml @ 100 mls/hr Q10H IV 02/21/20 06:45 02/21/20 07:27 Fentanyl Citrate 30 ml @ 0 mls/hr CONT PRN IV SEE PROTOCOL 02/21/20 06:45 02/21/20 10:59 DC 02/21/20 07:26 Propofol 100 ml @ 0 mls/hr CONT PRN IV PER PROTOCOL 02/21/20 06:45 02/21/20 08:03 Famotidine (Pepcid Vial) 20 mg BID IVP 02/21/20 09:00 02/21/20 10:23 Midazolam HCl 100 ml @ 0 mls/hr CONT PRN IV SEE PROTOCOL 02/21/20 06:45 02/21/20 07:42 Fentanyl Citrate 55 ml @ 0 mls/hr CONT PRN IV PAIN/SEDATION 02/21/20 11:00 02/21/20 11:45 Imaging: Imaging: CXR 02/20 IMPRESSION: New endotracheal tube in appropriate position. NG tube courses into the stomach and terminates out of view. PE: GEN: intubated in COVID isolation HEENT: Atraumatic, PERRL LUNGS: vent HEART: RRR ABD: round EXTREMITY/SKIN: chronic venous stasis BLE, left toe amputation NEURO/PSYCH: sedated A/P: A/P: AMS, resp failure Chronic TAN, CKD, elevated ammonia H/o PUD - EGD for bleeding in 10/2019 as above; biopsies negative for H. pylori CRC screen - none H/o A Fib and PE/DVT - s/p IVC filter and Coumadin stopped - recently started Eliquis CKD Rapid COVID negative 02/20 -- No concern for GI bleeding at this time. 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 Unclear significance of mildly elevated ammonia - unlikely to cause unresponsiveness. Recheck of labs ordered by others, will add recheck of ammonia and also check liver US. ANCA ROSENBAUM Feb 21, 2020 12:48
--- NOTE | 2020-02-21 14:15 | PDOC ---
PULMONARY PROGRESS NOTES DATE: 02/21/20 TIME: 14:15 Vitals Vital Signs Date Time Temp Pulse Resp B/P (MAP) Pulse Ox O2 Delivery O2 Flow Rate FiO2 02/21/20 13:01 83 28 147/59 (88) 100 Ventilator 02/21/20 12:00 97.9 97.9 General: Alert Lungs: Clear Cardiovascular: S1, S2 Abdomen: Other Extremities: Other Labs Laboratory Tests Test 02/21/20 06:30 02/21/20 07:50 SARS-CoV-2 Antigen (Rapid) Negative (NEGATIVE) O2 Saturation 97 % (92-99) Arterial Blood pH 7.31 (7.35-7.45) Arterial Blood pCO2 at Patient Temp 75 mmHg (35-46) Arterial Blood pO2 at Patient Temp 110 mmHg (65-108) Arterial Blood HCO3 37 mmol/L (21-28) Arterial Blood Base Excess 9 mmol/L (-3-3) FiO2 100%+8 Laboratory Tests Test 02/21/20 06:30 02/21/20 07:50 SARS-CoV-2 Antigen (Rapid) Negative (NEGATIVE) O2 Saturation 97 % (92-99) Arterial Blood pH 7.31 (7.35-7.45) Arterial Blood pCO2 at Patient Temp 75 mmHg (35-46) Arterial Blood pO2 at Patient Temp 110 mmHg (65-108) Arterial Blood HCO3 37 mmol/L (21-28) Arterial Blood Base Excess 9 mmol/L (-3-3) FiO2 100%+8 Medications Active Scripts Medications Dose Route/Sig Max Daily Dose Days Date Category Dose Instructions D3-50 (Cholecalciferol (Vitamin D3)) 50,000 Unit Capsule 1,000 Unit PO DAILY 02/21/20 Reported Propranolol Hcl 40 Mg Tablet 40 Mg PO BID 02/21/20 Reported Furosemide 40 Mg Tablet 40 Mg PO BID 02/21/20 Reported Eliquis (Apixaban) 5 Mg Tablet 5 Mg PO BID 02/21/20 Reported Humalog (Insulin Lispro) 100 Unit/1 Ml Cartridge 100 Unit SQ TIDACHC 02/21/20 Reported Lantus (Insulin Glargine,Hum.rec.anlog) 100 Unit/1 Ml Vial 35 Unit SQ HS 02/21/20 Reported Hydrocodone-Apap 7.5-325 (Hydrocodone Bit/Acetaminophen) 1 Tab Tablet 1 Tab PO PRN Q6HRS PRN 02/21/20 Reported Glimepiride 1 Mg Tablet 1 Mg PO DAILY 02/21/20 Reported Carafate (Sucralfate) 1 Gm Tablet 1 Tab PO QID 30 11/11/19 Rx Protonix (Pantoprazole Sodium) 40 Mg Tablet.dr 40 Mg PO DAILYAC 30 11/11/19 Rx Miralax (Polyethylene Glycol 3350) 17 Gm Powd.pack 1 Packet PO DAILY 2 11/11/19 Rx dissolve in water Simvastatin 40 Mg Tablet 1 Tab PO QHS 11/06/19 Reported Fenofibrate 160 Mg Tablet 145 Mg PO HS 11/06/19 Reported Propranolol Hcl 40 Mg Tablet 1 Tab PO BID 11/06/19 Reported One-Daily Multi-Vitamin (Multivitamin) 1 Each Tablet 1 Tab PO DAILY 30 11/06/19 Reported Impression . Full consult dictated Acute hypoxemic hypercapnic respiratory failure secondary to acute exacerbation of COPD, possible pneumonia. CHRISTIE ALMARAZ MD Feb 21, 2020 14:15
--- NOTE | 2020-02-21 14:44 | NUR ---
SS following for discharge planning. SS reviewed pt chart and discussed with pt RN. Pt is from home and is currently on the vent at 100%. COVID19 negative on rapid test. Pt on IV Zosyn and IV Meropenem. Not stable. SS will continue to follow for discharge planning.
[2020-02-21] MEDS ORDERED: FUROSEMIDE 40 MG/4 ML VIAL. IVP ONE (15:00)
--- NOTE | 2020-02-21 15:18 | RAD ---
Single view of the chest. 02/21/2020 2:54 PM Indication: Reason: Central line placement / Spl. Instructions: / History: Comparison: Chest radiograph earlier today Findings: There is a right internal jugular central line with tip at the cavoatrial junction. Endotra cheal tube and enteric tube appear stable. Small to moderate pleural effusion [id number] right pleural effusion and probable small left pleural effusion noted. Central vascular congestion and int erstitial edema persists. No pneumothorax is identified. No osseous changes noted in the interim. IMPRESSION: 1.New right internal jugular central line with tip at the cavoatrial junction 2. Otherwise stable chest radiograph Electronically signed by: Luis Miguel Victor MD (02/21/2020 3:16 PM) [id number]
--- NOTE | 2020-02-21 15:53 | PDOC2 ---
NEUROLOGY CONSULT Date of Service DOS: DATE: 02/21/20 TIME: 15:53 History of Present Illness History of Present Illness The patient is a 69-year-old right-handed male who presented to [facility] emergency department via emergency medical services from [facility] with altered mental status. Last known normal was 1730 on 02/19. He has baseline cognitive problems. He was brought in as a code stroke but soon found to have hypercapnic respiratory failure requiring intubation (pH was 7.11, PCO2 130, PO2 56). He also had elements of sepsis (hyperammonemia) along with his chronic renal insufficiency. There is no listed history of seizure. Past Medical History Cardiovascular: AFIB, CHF, HTN, Hyperlipidemia, Other (DVT) Pulmonary: COPD CENTRAL NERVOUS SYSTEM: Dementia GI: GERD, GI bleed Psych: Depression Renal/: Chronic renal insuff (Stage III) Endocrine: Diabetes Dermatology: Cellulitis (And wounds) Past Surgical History Past Surgical History: Other (IVC filter, left fourth toe amputation) Family History Family History: No pertinent hx (Unobtainable) Social History Social History Obtainable. [facility] resident Current Medications Current Medications Current Medications Sodium Chloride (Normal Saline Flush) 3 ml QSHIFT PRN IV AFTER MEDS AND BLOOD DRAWS; Start 02/21/20 at 06:45 Sodium Chloride 1,000 ml @ 100 mls/hr Q10H IV Last administered on 02/21/20at 07:27; Start 02/21/20 at 06:45 Fentanyl Citrate 30 ml @ 0 mls/hr CONT PRN IV SEE PROTOCOL Last administered on 02/21/20at 07:26; Start 02/21/20 at 06:45; Stop 02/21/20 at 10:59; Status DC Propofol 100 ml @ 0 mls/hr CONT PRN IV PER PROTOCOL Last administered on 02/21/20at 08:03; Start 02/21/20 at 06:45 Fentanyl Citrate (Fentanyl 2ml Vial) 25 mcg PRN Q1HR PRN IV SEE COMMENTS; Start 02/21/20 at 06:45 Fentanyl Citrate (Fentanyl 2ml Vial) 50 mcg PRN Q1HR PRN IV SEE COMMENTS; Start 02/21/20 at 06:45 Famotidine (Pepcid Vial) 20 mg BID IVP Last administered on 02/21/20at 10:23; Start 02/21/20 at 09:00; Stop 02/21/20 at 12:53; Status DC Morphine Sulfate (Morphine Sulfate) 2 mg PRN Q1HR PRN IV SEE COMMENTS.; Start 02/21/20 at 06:45 Morphine Sulfate (Morphine Sulfate) 4 mg PRN Q1HR PRN IV SEE COMMENTS.; Start 02/21/20 at 06:45 Midazolam HCl 100 ml @ 0 mls/hr CONT PRN IV SEE PROTOCOL Last administered on 02/21/20at 14:49; Start 02/21/20 at 06:45 Fentanyl Citrate 55 ml @ 0 mls/hr CONT PRN IV PAIN/SEDATION Last administered on 02/21/20at 11:45; Start 02/21/20 at 11:00 Ondansetron HCl (Zofran) 4 mg PRN Q6HRS PRN IVP NAUSEA/VOMITING; Start 02/21/20 at 12:15 Famotidine (Pepcid Vial) 20 mg BID IVP ; Start 02/21/20 at 13:00; Stop 02/21/20 at 12:53; Status DC Info (Icu Electrolyte Protocol) 1 ea DAILY [facility] ; Start 02/22/20 at 09:00 Sodium Chloride (Normal Saline Flush) 3 ml QSHIFT PRN IV AFTER MEDS AND BLOOD DRAWS; Start 02/21/20 at 12:15; Status Cancel Bisacodyl (Dulcolax Supp) 10 mg PRN DAILY PRN IA CONSTIPATION; Start 02/21/20 at 12:15 Piperacillin Sod/ Tazobactam Sod (Zosyn Per Pharmacy) 1 each PRN DAILY PRN [facility] SEE COMMENTS; Start 02/21/20 at 12:15 Meropenem 500 mg/ Sodium Chloride 50 ml @ 100 mls/hr Q8HRS IV ; Start 02/21/20 at 14:00 Pantoprazole Sodium (PROTONIX VIAL for IV PUSH) 40 mg DAILYAC IVP ; Start 02/22/20 at 16:30 Furosemide (Lasix) 40 mg 1X ONCE IVP ; Start 02/21/20 at 15:00; Stop 02/21/20 at 15:01; Status DC Piperacillin Sod/ Tazobactam Sod 3.375 gm/Sodium Chloride 50 ml @ 100 mls/hr Q6HRS IV ; Start 02/21/20 at 18:00 Simvastatin (Zocor) 40 mg QHS PO ; Start 02/21/20 at 21:00 Propranolol HCl (Inderal) 40 mg BID PO ; Start 02/21/20 at 21:00 Active Scripts Active Carafate (Sucralfate) 1 Gm Tablet 1 Tab PO QID 30 Days Protonix (Pantoprazole Sodium) 40 Mg Tablet.dr 40 Mg PO DAILYAC 30 Days Miralax (Polyethylene Glycol 3350) 17 Gm Powd.pack 1 Packet PO DAILY 2 Days dissolve in water Reported D3-50 (Cholecalciferol (Vitamin D3)) 50,000 Unit Capsule 1,000 Unit PO DAILY Propranolol Hcl 40 Mg Tablet 40 Mg PO BID Furosemide 40 Mg Tablet 40 Mg PO BID Eliquis (Apixaban) 5 Mg Tablet 5 Mg PO BID Humalog (Insulin Lispro) 100 Unit/1 Ml Cartridge 100 Unit SQ TIDACHC Lantus (Insulin Glargine,Hum.rec.anlog) 100 Unit/1 Ml Vial 35 Unit SQ HS Hydrocodone-Apap 7.5-325 (Hydrocodone Bit/Acetaminophen) 1 Tab Tablet 1 Tab PO PRN Q6HRS PRN Glimepiride 1 Mg Tablet 1 Mg PO DAILY Simvastatin 40 Mg Tablet 1 Tab PO QHS Fenofibrate 160 Mg Tablet 145 Mg PO HS Propranolol Hcl 40 Mg Tablet 1 Tab PO BID One-Daily Multi-Vitamin (Multivitamin) 1 Each Tablet 1 Tab PO DAILY 30 Days Allergies Allergies: Coded Allergies: Milk Containing Products (Verified Allergy, Intermediate, 11/06/19) chlordiazepoxide (Verified Allergy, Intermediate, 11/06/19) insulin glargine (Verified Allergy, Intermediate, increased HR, 11/06/19) ROS Review of System Unobtainable Physical Exam Physical Examination General: Well-developed, well-nourished white male in no acute distress HEENT: Normocephalic andatraumatic. Temporal arteriespulsatile and nontender. Neck: Supple without bruit, no meningismus Musculoskeletal: Stability:see neurologic. Gait exam:see neurologic. Tone:see neurologic.Strength:see neurologic. Neurological: Mental Status:orientation, memory, attention span/concentration, language, fund of knowledge: Intubated and sedated. Cranial Nerves:Pupils equal and reactive to light. There is no facial asymmetry.Reflexes:1+ and symmetric with silent plantar responses. Motor:No response to pain. Coordinationand gait:Not testable. Sensory:Not testable.. Vitals VITALS Vital Signs Date Time Temp Pulse Resp B/P (MAP) Pulse Ox O2 Delivery O2 Flow Rate FiO2 02/21/20 15:42 82 28 125/65 (85) 100 Ventilator 02/21/20 12:00 97.9 97.9 Labs Labs [facility] labs: Laboratory Tests Test 02/20/20 22:20 02/20/20 23:55 White Blood Count 10.4 x10^3/uL (4.0-11.0) Red Blood Count 3.92 x10^6/uL (4.30-5.70) L Hemoglobin 9.9 g/dL (13.0-17.5) L Hematocrit 33.2 % (39.0-53.0) L Mean Corpuscular Volume 85 fL (79-100) Mean Corpuscular Hemoglobin 25 pg (25-35) Mean Corpuscular Hemoglobin Concent 30 g/dL (31-37) L Red Cell Distribution Width 18.0 % (11.5-14.5) H Platelet Count 404 x10^3/uL (140-400) H Neutrophils (%) (Auto) 83 % (31-73) H Lymphocytes (%) (Auto) 5 % (24-48) L Monocytes (%) (Auto) 10 % (0-9) H Eosinophils (%) (Auto) 1 % (0-3) Basophils (%) (Auto) 1 % (0-3) Neutrophils # (Auto) 8.6 x10^3uL (1.8-7.7) H Lymphocytes # (Auto) 0.6 x10^3/uL (1.0-4.8) L Monocytes # (Auto) 1.0 x10^3/uL (0.0-1.1) Eosinophils # (Auto) 0.1 x10^3/uL (0.0-0.7) Basophils # (Auto) 0.1 x10^3/uL (0.0-0.2) Prothrombin Time 11.1 SEC (9.4-11.4) Prothrombin Time INR 1.1 (0.9-1.1) Activated Partial Thromboplast Time 32 SEC (23-33) D-Dimer (Joslyn) 1.82 mg/L (0.00-0.50) H Sodium Level 143 mmol/L (136-145) Potassium Level 4.8 mmol/L (3.5-5.1) Chloride Level 100 mmol/L (98-107) Carbon Dioxide Level 42 mmol/L (21-32) H Anion Gap 1 (6-14) L Blood Urea Nitrogen 32 mg/dL (8-26) H Creatinine 2.1 mg/dL (0.7-1.3) H Estimated GFR (Cockcroft-Gault) 31.6 BUN/Creatinine Ratio 15 (6-20) Glucose Level 84 mg/dL (70-99) Lactic Acid Level 0.3 mmol/L (0.4-2.0) L Calcium Level 8.9 mg/dL (8.5-10.1) Magnesium Level 2.1 mg/dL (1.8-2.4) Total Bilirubin 0.3 mg/dL (0.2-1.0) Aspartate Amino Transferase (AST) 19 U/L (15-37) Alanine Aminotransferase (ALT) 11 U/L (16-63) L Alkaline Phosphatase 71 U/L (46-116) Ammonia 66 mcmol/L (11-34) H Creatine Kinase < 15 U/L (39-308) L Creatine Kinase MB (Mass) 0.5 ng/mL (0.0-3.6) Creatine Kinase MB Relative Index 0.0 % (0-4) Troponin I Quantitative < 0.017 ng/mL (0-0.055) QP-Lbm-A-Type Natriuretic Peptide 5556 pg/mL (0-124) H Total Protein 7.1 g/dL (6.4-8.2) Albumin 2.8 g/dL (3.4-5.0) L Albumin/Globulin Ratio 0.7 (1.0-1.7) L Lipase 114 U/L (73-393) Urine Collection Type Unknown Urine Color Yellow Urine Clarity Clear Urine pH 5.0 Urine Specific [place] 1.020 Urine Protein 100 mg/dl (NEG-TRACE) Urine Glucose (UA) Neg mg/dL (NEG) Urine Ketones (Stick) Neg mg/dL (NEG) Urine Blood Neg (NEG) Urine Nitrite Neg (NEG) Urine Bilirubin Neg (NEG) Urine Urobilinogen Dipstick 0.2 mg/dL (0.2 mg/dL) Urine Leukocyte Esterase Neg (NEG) Urine RBC 0 /HPF (0-2) Urine WBC 0 /HPF (0-4) Urine Squamous Epithelial Cells None /LPF Urine Amorphous Sediment Present /HPF Urine Bacteria 0 /HPF (0-FEW) Urine Opiates Screen Neg (NEG) Urine Methadone Screen Neg (NEG) Urine Barbiturates Neg (NEG) Urine Phencyclidine Screen Neg (NEG) Urine Amphetamine/Methamphetamine Neg (NEG) Urine Benzodiazepines Screen Neg (NEG) Urine Cocaine Screen Neg (NEG) Urine Cannabinoids Screen Neg (NEG) Urine Ethyl Alcohol Neg (NEG) PMC Laboratory Tests Test 02/21/20 06:30 02/21/20 07:50 SARS-CoV-2 Antigen (Rapid) Negative (NEGATIVE) O2 Saturation 97 % (92-99) Arterial Blood pH 7.31 (7.35-7.45) Arterial Blood pCO2 at Patient Temp 75 mmHg (35-46) Arterial Blood pO2 at Patient Temp 110 mmHg (65-108) Arterial Blood HCO3 37 mmol/L (21-28) Arterial Blood Base Excess 9 mmol/L (-3-3) FiO2 100%+8 Test 02/21/20 06:30 02/21/20 07:50 SARS-CoV-2 Antigen (Rapid) Negative (NEGATIVE) O2 Saturation 97 % (92-99) Arterial Blood pH 7.31 (7.35-7.45) Arterial Blood pCO2 at Patient Temp 75 mmHg (35-46) Arterial Blood pO2 at Patient Temp 110 mmHg (65-108) Arterial Blood HCO3 37 mmol/L (21-28) Arterial Blood Base Excess 9 mmol/L (-3-3) FiO2 100%+[address] head, [facility] No focal parenchymal lesion or hemorrhage is identified. There is no midline shift or sulcal effacement. Mild patchy evidence in the periventricular white matter. No acute vascular territory infarction is identified. Tello-white distinction is preserved. The ventricular system is within normal limits without compression hydrocephalus. The basal cisterns are well maintained. The visualized portions of the paranasal sinuses and mastoid air cells are well-pneumatized. No acute fractures. IMPRESSION: Mild small vessel ischemic change, technically age indeterminate without recent prior imaging. No acute hemorrhage. Assessment/Plan Assessment/Plan Impression: Metabolic encephalopathy Respiratory failure, renal insufficiency, diabetes, history of GI bleed several months ago, elevated ammonia level. No evidence that he had a stroke. Recommendations: No additional neurological studies or treatments needed at this time I will follow along. Thank you for letting me help with the patient's care. CHRISTINA BRADSHAW MD Feb 21, 2020 15:53
[2020-02-21 16:12] LABS: BASO # 0.1 x10^3/uL (0.0-0.2); BASO % 1 % (0-3); EOS # 0.1 x10^3/uL (0.0-0.7); EOS % 1 % (0-3); HEMATOCRIT 27.2 % (39.0-53.0); HEMOGLOBIN 8.4 g/dL (13.0-17.5); LYMPH # 0.5 x10^3/uL (1.0-4.8); LYMPH % 7 % (24-48); MEAN CORPUSCULAR HEMOGLOBIN 25 pg (25-35); MEAN CORPUSCULAR HGB CONC 31 g/dL (31-37); MEAN CORPUSCULAR VOLUME 82 fL (79-100); MONO # 0.6 x10^3/uL (0.0-1.1); MONO % 9 % (0-9); NEUT # 5.9 x10^3/uL (1.8-7.7); NEUT % 82 % (31-73); PLATELET COUNT 312 x10^3/uL (140-400); RED BLOOD COUNT 3.32 x10^6/uL (4.30-5.70); RED CELL DISTRIBUTION WIDTH 17.7 % (11.5-14.5); WHITE BLOOD COUNT 7.2 x10^3/uL (4.0-11.0)
--- NOTE | 2020-02-21 16:21 | CONS ---
DATE OF CONSULTATION: 02/21/2020 ATTENDING PHYSICIAN: Dr. Sawyer CONSULTING PHYSICIAN: Christie Almaraz MD REASON FOR CONSULTATION: The patient is seen in pulmonary consultation at the request of Dr. Sawyer for acute respiratory failure requiring mechanical ventilation. HISTORY OF PRESENT ILLNESS: The patient is a 69-year-old that [facility] status, at in [place], [place]. He was last seen at dinnertime. He is talking. He then presented with altered mental status to change on. Normally, the patient is verbal, he was nonverbal. He has a history of previous DVT, PE, has IVC filter placement. He is also on Eliquis. There was initially concern for a stroke. Upon presentation to the Emergency Department, he was responsive to painful stimuli. The patient underwent endotracheal intubation is currently on mechanical ventilation. He had a CT head, which revealed no acute process. EKG was nonremarkable for acute myocardial infarction. The patient was transferred to the intensive care unit at [facility] and was asked to see in a consultation. He is currently intubated. PAST MEDICAL HISTORY: Otherwise remarkable for previous history of AFib, hypertension, hyperlipidemia, pulmonary embolism and DVT, COPD, gastroesophageal reflux, previous GI bleed, osteoarthritis, chronic renal insufficiency, diabetes. PAST SURGICAL HISTORY: He has had previous toe amputation on the left, status post IVC filter placement. ALLERGIES: CHLORDIAZEPOXIDE, INSULIN. REVIEW OF SYSTEMS: Unobtainable secondary to the patient's condition. CURRENT MEDICATION: List was reviewed. PHYSICAL EXAMINATION: GENERAL: The patient was on mechanical ventilation, in no respiratory distress. VITAL SIGNS: Stable, he was in sync with the ventilator. HEENT: Eyes: The sclera was nonicteric. NECK: Jugular venous distention could not be assessed secondary to body habitus. CHEST: Full expansion. LUNGS: Crackles anteriorly. CARDIOVASCULAR: Regular rate and rhythm with S1, S2, no S3. ABDOMEN: Soft, nontender, nondistended. EXTREMITIES: No clubbing, cyanosis. He had a severe lower extremity cellulitis and edema. NEUROLOGIC: The patient was sedated on mechanical ventilation. LABORATORY DATA: Reviewed. Arterial blood gas revealed a pH of 7.31, PaCO2 of 75, pO2 of 110, bicarbonate was 37. Serology for SARS-CoV-2 rapid test was negative. Other labs from [facility] were reviewed. Chest x-ray revealed bilateral pulmonary infiltrates and the endotracheal tube was properly positioned. IMPRESSION: 1. Acute on chronic hypoxemic hypercapnic respiratory failure. 2. Paroxysmal atrial fibrillation. 3. History of deep venous thrombosis, PE, status post IVC filter placement. 4. History of anemia with history of recent gastrointestinal bleed. 5. Hypertension. 6. Hyperlipidemia. 7. Acute on chronic kidney disease. 8. Acute exacerbation of chronic obstructive pulmonary disease. 9. Acute on chronic metabolic toxic, possible toxic encephalopathy. PLAN: 1. We will continue current assist control mode with adjustment of ventilation to normalize pH. 2. Empiric antibiotics for possible pneumonia, gram-negative, gram-positive. 3. Rule out myocardial infarction, consult Cardiology, already performed. 4. Consult Nephrology. 5. Doubt recurrent PE. The patient is on Eliquis and has an IVC filter in place. 6. Rule out myocardial infarction. 7. SARS-CoV-2 pending. I do appreciate the privilege in sharing in the patient's care. CHRISTIE ALMARAZ MD DR: EDITA/mariusz JOB#: [id number] / [id number]
[2020-02-21] MEDS: MEROPENEM 500 MG in IV NORMAL SALINE 50ML 50 ML IV SCH ×2 (16:23→22:31)
[2020-02-21 16:30] LABS: ALBUMIN 2.2 g/dL (3.4-5.0); ALBUMIN/GLOBULIN RATIO 0.5 (1.0-1.7); CREATININE 2.2 mg/dL (0.7-1.3); GFR 29.9; POTASSIUM 4.2 mmol/L (3.5-5.1); TOTAL BILIRUBIN 0.5 mg/dL (0.2-1.0); TOTAL PROTEIN 6.3 g/dL (6.4-8.2)
[2020-02-21] MEDS: PIPERACILLIN/TAZOBACTAM 3.375 GM in IV NORMAL SALINE 50ML 50 ML IV SCH (17:23)
--- NOTE | 2020-02-21 18:04 | NUR ---
Patient transferred to [facility] and placed on a bariatric bed. Right IJ triple lumen central line placed. Updated daughter. Daughter request a different rehab facility if patient needs to go to one. This RN checks patient and room for a wallet and cell phone. This RN told the daughter that the patient to come here with any belongings. Will continue to monitor patient.
[2020-02-21] MEDS ORDERED: PROPRANOLOL 40 MG TABLET. PO SCH (21:00)
[2020-02-21] MEDS ORDERED: SUCRALFATE 1 GM TABLET. PO SCH (21:30)
[2020-02-21] MEDS: SIMVASTATIN 40 MG TABLET. PO SCH (22:12)
[2020-02-21] MEDS: PROPRANOLOL 40 MG TABLET. PO SCH (22:13)
[2020-02-21] MEDS: APIXABAN 5 MG TABLET. PO SCH (22:14)
--- NOTE | 2020-02-21 22:31 | RAD ---
Exam: Ultrasound abdomen limited Indication: Elevated ammonia Technique: Real-time grayscale and color Doppler images of the right upper quadrant were obtained by the department order fulfillment specialist. Comparisons: None FINDINGS: Liver contour is normal. Hepatopedal flow noted within the portal vein. Increased echogenicity of patsy er. Gallbladder is mildly distended. Numerous gallstones are noted. There is a small amount of pericholec ystic fluid. No gallbladder wall thickening. Common bile duct is mildly dilated measuring 7 mm in diameter. Right kidney measures 12.8 cm in length. No hydronephrosis. Aorta and IVC are not well seen. IMPRESSION: 1. Distended gallbladder, pericholecystic fluid and gallstones. Findings are equivocal for acute cho lecystitis. 2. Diffuse hepatic steatosis. 3. No right-sided hydronephrosis. Electronically signed by: Zane Harrison MD (02/21/2020 10:28 PM) FRANCIS
[2020-02-22] VITALS (24 sets, daily range): BP systolic 95–140; BP diastolic 45–84
[2020-02-22] MEDS ORDERED: INFLUENZA VAX SCREEN BY RX. MC ONE
[2020-02-22] MEDS: PIPERACILLIN/TAZOBACTAM 3.375 GM in IV NORMAL SALINE 50ML 50 ML IV SCH ×4 (00:54→18:54)
[2020-02-22] MEDS: MIDAZOLAM 100mg/100ml NS BAG 100 ML IV PRN ×3 (00:56→20:57)
[2020-02-22] MEDS: MEROPENEM 500 MG in IV NORMAL SALINE 50ML 50 ML IV SCH (05:38)
[2020-02-22] MEDS: IV NORMAL SALINE 1000ML BAG 1,000 ML IV SCH ×2 (05:46→16:49)
[2020-02-22 06:22] LABS: ALBUMIN 1.9 g/dL (3.4-5.0); ALBUMIN/GLOBULIN RATIO 0.5 (1.0-1.7); CALCIUM 8.4 mg/dL (8.5-10.1); CREATININE 2.1 mg/dL (0.7-1.3); GFR 31.6; POTASSIUM 3.6 mmol/L (3.5-5.1); TOTAL BILIRUBIN 0.5 mg/dL (0.2-1.0); TOTAL PROTEIN 5.6 g/dL (6.4-8.2)
[2020-02-22 06:25] LABS: PROTHROMBIN TIME PATIENT 17.9 SEC (11.7-14.0)
[2020-02-22 06:32] LABS: BASO # 0.1 x10^3/uL (0.0-0.2); BASO % 2 % (0-3); EOS # 0.1 x10^3/uL (0.0-0.7); EOS % 2 % (0-3); HEMATOCRIT 25.2 % (39.0-53.0); HEMOGLOBIN 7.9 g/dL (13.0-17.5); LYMPH # 0.8 x10^3/uL (1.0-4.8); LYMPH % 12 % (24-48); MEAN CORPUSCULAR HEMOGLOBIN 25 pg (25-35); MEAN CORPUSCULAR HGB CONC 31 g/dL (31-37); MEAN CORPUSCULAR VOLUME 81 fL (79-100); MONO # 0.5 x10^3/uL (0.0-1.1); MONO % 8 % (0-9); NEUT # 5.3 x10^3/uL (1.8-7.7); NEUT % 77 % (31-73); PLATELET COUNT 267 x10^3/uL (140-400); RED BLOOD COUNT 3.13 x10^6/uL (4.30-5.70); RED CELL DISTRIBUTION WIDTH 17.6 % (11.5-14.5); WHITE BLOOD COUNT 6.9 x10^3/uL (4.0-11.0)
[2020-02-22] MEDS ORDERED: PANTOPRAZOLE 40 MG TABLET.DR. PO SCH (07:30)
[2020-02-22 07:49] LABS: BASE EXCESS ABG 9 mmol/L (-3-3); HCO3 ABG 32 mmol/L (21-28); PCO2 ABG 39 mmHg (35-46); PO2 ABG 78 mmHg (65-108); SAT O2 ABG 96 % (92-99)
[2020-02-22 08:11] LABS: FIO2 ABG 70/VENT
[2020-02-22] MEDS ORDERED: ANTI-COAG MONITOR BY PHARMACY. MC PRN (08:15)
[2020-02-22] MEDS: PANTOPRAZOLE IV PUSH 40 MG VIAL. IVP SCH (08:38)
[2020-02-22] MEDS: ELECTROLYTE (ICU) PROTOCOL. MC SCH (08:39)
--- NOTE | 2020-02-22 08:40 | PDOC ---
PROGRESS NOTES Date of Service DATE: 02/22/20 TIME: 08:39 Assessment Metabolic encephalopathy Respiratory failure, renal insufficiency, diabetes, history of GI bleed several months ago, elevated ammonia level. No evidence that he had a stroke. Plan No additional neurological studies or treatments needed at this time I will follow along. Subjective None Objective Vital Signs Date Time Temp Pulse Resp B/P (MAP) Pulse Ox O2 Delivery O2 Flow Rate FiO2 02/22/20 08:14 60 28 120/52 (74) 100 Ventilator 02/22/20 04:00 98.4 98.4 Intake and Output 02/22/20 07:00 Intake Total 2681 ml Output Total 1425 ml Balance 1256 ml Intake IV Total 1824 ml Tube Feeding 557 ml Other 300 ml Output Urine Total 1425 ml PHYSICAL EXAM Intubated and sedated PERRL. No spontaneous extraocular movements CN: no focal findings. Muscle tone: normal. Muscle strength: No response to pain DTR: 0+ Plantar reflex: Silent Gait: not examined in bed. Sensory exam: no abnormal findings. No cerebellar signs elicited. Review of Relevant I have reviewed the following items megan (where applicable) has been applied. Labs Laboratory Tests Test 02/21/20 06:30 02/21/20 07:50 02/21/20 16:00 02/22/20 00:25 SARS-CoV-2 Antigen (Rapid) Negative (NEGATIVE) O2 Saturation 97 % (92-99) Arterial Blood pH 7.31 (7.35-7.45) Arterial Blood pCO2 at Patient Temp 75 mmHg (35-46) Arterial Blood pO2 at Patient Temp 110 mmHg (65-108) Arterial Blood HCO3 37 mmol/L (21-28) Arterial Blood Base Excess 9 mmol/L (-3-3) FiO2 100%+8 White Blood Count 7.2 x10^3/uL (4.0-11.0) Red Blood Count 3.32 x10^6/uL (4.30-5.70) Hemoglobin 8.4 g/dL (13.0-17.5) Hematocrit 27.2 % (39.0-53.0) Mean Corpuscular Volume 82 fL (79-100) Mean Corpuscular Hemoglobin 25 pg (25-35) Mean Corpuscular Hemoglobin Concent 31 g/dL (31-37) Red Cell Distribution Width 17.7 % (11.5-14.5) Platelet Count 312 x10^3/uL (140-400) Neutrophils (%) (Auto) 82 % (31-73) Lymphocytes (%) (Auto) 7 % (24-48) Monocytes (%) (Auto) 9 % (0-9) Eosinophils (%) (Auto) 1 % (0-3) Basophils (%) (Auto) 1 % (0-3) Neutrophils # (Auto) 5.9 x10^3/uL (1.8-7.7) Lymphocytes # (Auto) 0.5 x10^3/uL (1.0-4.8) Monocytes # (Auto) 0.6 x10^3/uL (0.0-1.1) Eosinophils # (Auto) 0.1 x10^3/uL (0.0-0.7) Basophils # (Auto) 0.1 x10^3/uL (0.0-0.2) Sodium Level 145 mmol/L (136-145) Potassium Level 4.2 mmol/L (3.5-5.1) Chloride Level 103 mmol/L (98-107) Carbon Dioxide Level 39 mmol/L (21-32) Anion Gap 3 (6-14) Blood Urea Nitrogen 36 mg/dL (8-26) Creatinine 2.2 mg/dL (0.7-1.3) Estimated GFR (Cockcroft-Gault) 29.9 BUN/Creatinine Ratio 16 (6-20) Glucose Level 95 mg/dL (70-99) Lactic Acid Level 0.9 mmol/L (0.4-2.0) Calcium Level 9.0 mg/dL (8.5-10.1) Magnesium Level 1.9 mg/dL (1.8-2.4) Total Bilirubin 0.5 mg/dL (0.2-1.0) Aspartate Amino Transf (AST/SGOT) 19 U/L (15-37) Alanine Aminotransferase (ALT/SGPT) 6 U/L (16-63) Alkaline Phosphatase 55 U/L (46-116) Ammonia 18 mcmol/L (11-34) Troponin I Quantitative < 0.017 ng/mL (0.000-0.055) Total Protein 6.3 g/dL (6.4-8.2) Albumin 2.2 g/dL (3.4-5.0) Albumin/Globulin Ratio 0.5 (1.0-1.7) Procalcitonin 0.26 ng/mL (0.00-0.10) Thyroid Stimulating Hormone (TSH) 1.274 uIU/mL (0.358-3.74) Glucose (Fingerstick) 125 mg/dL (70-99) Test 02/22/20 05:45 02/22/20 06:01 02/22/20 06:20 02/22/20 08:00 Prothrombin Time 17.9 SEC (11.7-14.0) Prothromb Time International Ratio 1.5 (0.8-1.1) Activated Partial Thromboplast Time 41 SEC (24-38) Sodium Level 143 mmol/L (136-145) Potassium Level 3.6 mmol/L (3.5-5.1) Chloride Level 103 mmol/L (98-107) Carbon Dioxide Level 36 mmol/L (21-32) Anion Gap 4 (6-14) Blood Urea Nitrogen 38 mg/dL (8-26) Creatinine 2.1 mg/dL (0.7-1.3) Estimated GFR (Cockcroft-Gault) 31.6 BUN/Creatinine Ratio 18 (6-20) Glucose Level 132 mg/dL (70-99) Calcium Level 8.4 mg/dL (8.5-10.1) Total Bilirubin 0.5 mg/dL (0.2-1.0) Aspartate Amino Transf (AST/SGOT) 20 U/L (15-37) Alanine Aminotransferase (ALT/SGPT) 8 U/L (16-63) Alkaline Phosphatase 54 U/L (46-116) Ammonia 12 mcmol/L (11-34) Total Protein 5.6 g/dL (6.4-8.2) Albumin 1.9 g/dL (3.4-5.0) Albumin/Globulin Ratio 0.5 (1.0-1.7) Glucose (Fingerstick) 134 mg/dL (70-99) White Blood Count 6.9 x10^3/uL (4.0-11.0) Red Blood Count 3.13 x10^6/uL (4.30-5.70) Hemoglobin 7.9 g/dL (13.0-17.5) Hematocrit 25.2 % (39.0-53.0) Mean Corpuscular Volume 81 fL (79-100) Mean Corpuscular Hemoglobin 25 pg (25-35) Mean Corpuscular Hemoglobin Concent 31 g/dL (31-37) Red Cell Distribution Width 17.6 % (11.5-14.5) Platelet Count 267 x10^3/uL (140-400) Neutrophils (%) (Auto) 77 % (31-73) Lymphocytes (%) (Auto) 12 % (24-48) Monocytes (%) (Auto) 8 % (0-9) Eosinophils (%) (Auto) 2 % (0-3) Basophils (%) (Auto) 2 % (0-3) Neutrophils # (Auto) 5.3 x10^3/uL (1.8-7.7) Lymphocytes # (Auto) 0.8 x10^3/uL (1.0-4.8) Monocytes # (Auto) 0.5 x10^3/uL (0.0-1.1) Eosinophils # (Auto) 0.1 x10^3/uL (0.0-0.7) Basophils # (Auto) 0.1 x10^3/uL (0.0-0.2) O2 Saturation 96 % (92-99) Arterial Blood pH 7.54 (7.35-7.45) Arterial Blood pCO2 at Patient Temp 39 mmHg (35-46) Arterial Blood pO2 at Patient Temp 78 mmHg (65-108) Arterial Blood HCO3 32 mmol/L (21-28) Arterial Blood Base Excess 9 mmol/L (-3-3) FiO2 70/vent Laboratory Tests Test 02/21/20 16:00 02/22/20 00:25 02/22/20 05:45 02/22/20 06:01 White Blood Count 7.2 x10^3/uL (4.0-11.0) Red Blood Count 3.32 x10^6/uL (4.30-5.70) Hemoglobin 8.4 g/dL (13.0-17.5) Hematocrit 27.2 % (39.0-53.0) Mean Corpuscular Volume 82 fL (79-100) Mean Corpuscular Hemoglobin 25 pg (25-35) Mean Corpuscular Hemoglobin Concent 31 g/dL (31-37) Red Cell Distribution Width 17.7 % (11.5-14.5) Platelet Count 312 x10^3/uL (140-400) Neutrophils (%) (Auto) 82 % (31-73) Lymphocytes (%) (Auto) 7 % (24-48) Monocytes (%) (Auto) 9 % (0-9) Eosinophils (%) (Auto) 1 % (0-3) Basophils (%) (Auto) 1 % (0-3) Neutrophils # (Auto) 5.9 x10^3/uL (1.8-7.7) Lymphocytes # (Auto) 0.5 x10^3/uL (1.0-4.8) Monocytes # (Auto) 0.6 x10^3/uL (0.0-1.1) Eosinophils # (Auto) 0.1 x10^3/uL (0.0-0.7) Basophils # (Auto) 0.1 x10^3/uL (0.0-0.2) Sodium Level 145 mmol/L (136-145) 143 mmol/L (136-145) Potassium Level 4.2 mmol/L (3.5-5.1) 3.6 mmol/L (3.5-5.1) Chloride Level 103 mmol/L (98-107) 103 mmol/L (98-107) Carbon Dioxide Level 39 mmol/L (21-32) 36 mmol/L (21-32) Anion Gap 3 (6-14) 4 (6-14) Blood Urea Nitrogen 36 mg/dL (8-26) 38 mg/dL (8-26) Creatinine 2.2 mg/dL (0.7-1.3) 2.1 mg/dL (0.7-1.3) Estimated GFR (Cockcroft-Gault) 29.9 31.6 BUN/Creatinine Ratio 16 (6-20) 18 (6-20) Glucose Level 95 mg/dL (70-99) 132 mg/dL (70-99) Lactic Acid Level 0.9 mmol/L (0.4-2.0) Calcium Level 9.0 mg/dL (8.5-10.1) 8.4 mg/dL (8.5-10.1) Magnesium Level 1.9 mg/dL (1.8-2.4) Total Bilirubin 0.5 mg/dL (0.2-1.0) 0.5 mg/dL (0.2-1.0) Aspartate Amino Transf (AST/SGOT) 19 U/L (15-37) 20 U/L (15-37) Alanine Aminotransferase (ALT/SGPT) 6 U/L (16-63) 8 U/L (16-63) Alkaline Phosphatase 55 U/L (46-116) 54 U/L (46-116) Ammonia 18 mcmol/L (11-34) 12 mcmol/L (11-34) Troponin I Quantitative < 0.017 ng/mL (0.000-0.055) Total Protein 6.3 g/dL (6.4-8.2) 5.6 g/dL (6.4-8.2) Albumin 2.2 g/dL (3.4-5.0) 1.9 g/dL (3.4-5.0) Albumin/Globulin Ratio 0.5 (1.0-1.7) 0.5 (1.0-1.7) Procalcitonin 0.26 ng/mL (0.00-0.10) Thyroid Stimulating Hormone (TSH) 1.274 uIU/mL (0.358-3.74) Glucose (Fingerstick) 125 mg/dL (70-99) 134 mg/dL (70-99) Prothrombin Time 17.9 SEC (11.7-14.0) Prothromb Time International Ratio 1.5 (0.8-1.1) Activated Partial Thromboplast Time 41 SEC (24-38) Test 02/22/20 06:20 02/22/20 08:00 White Blood Count 6.9 x10^3/uL (4.0-11.0) Red Blood Count 3.13 x10^6/uL (4.30-5.70) Hemoglobin 7.9 g/dL (13.0-17.5) Hematocrit 25.2 % (39.0-53.0) Mean Corpuscular Volume 81 fL (79-100) Mean Corpuscular Hemoglobin 25 pg (25-35) Mean Corpuscular Hemoglobin Concent 31 g/dL (31-37) Red Cell Distribution Width 17.6 % (11.5-14.5) Platelet Count 267 x10^3/uL (140-400) Neutrophils (%) (Auto) 77 % (31-73) Lymphocytes (%) (Auto) 12 % (24-48) Monocytes (%) (Auto) 8 % (0-9) Eosinophils (%) (Auto) 2 % (0-3) Basophils (%) (Auto) 2 % (0-3) Neutrophils # (Auto) 5.3 x10^3/uL (1.8-7.7) Lymphocytes # (Auto) 0.8 x10^3/uL (1.0-4.8) Monocytes # (Auto) 0.5 x10^3/uL (0.0-1.1) Eosinophils # (Auto) 0.1 x10^3/uL (0.0-0.7) Basophils # (Auto) 0.1 x10^3/uL (0.0-0.2) O2 Saturation 96 % (92-99) Arterial Blood pH 7.54 (7.35-7.45) Arterial Blood pCO2 at Patient Temp 39 mmHg (35-46) Arterial Blood pO2 at Patient Temp 78 mmHg (65-108) Arterial Blood HCO3 32 mmol/L (21-28) Arterial Blood Base Excess 9 mmol/L (-3-3) FiO2 70/vent Medications Current Medications Sodium Chloride (Normal Saline Flush) 3 ml QSHIFT PRN IV AFTER MEDS AND BLOOD DRAWS; Start 02/21/20 at 06:45 Sodium Chloride 1,000 ml @ 100 mls/hr Q10H IV Last administered on 02/22/20at 05:46; Start 02/21/20 at 06:45 Fentanyl Citrate 30 ml @ 0 mls/hr CONT PRN IV SEE PROTOCOL Last administered on 02/21/20at 07:26; Start 02/21/20 at 06:45; Stop 02/21/20 at 10:59; Status DC Propofol 100 ml @ 0 mls/hr CONT PRN IV PER PROTOCOL Last administered on 02/21/20at 08:03; Start 02/21/20 at 06:45 Fentanyl Citrate (Fentanyl 2ml Vial) 25 mcg PRN Q1HR PRN IV SEE COMMENTS; Start 02/21/20 at 06:45 Fentanyl Citrate (Fentanyl 2ml Vial) 50 mcg PRN Q1HR PRN IV SEE COMMENTS; Start 02/21/20 at 06:45 Famotidine (Pepcid Vial) 20 mg BID IVP Last administered on 02/21/20at 10:23; Start 02/21/20 at 09:00; Stop 02/21/20 at 12:53; Status DC Morphine Sulfate (Morphine Sulfate) 2 mg PRN Q1HR PRN IV SEE COMMENTS.; Start 02/21/20 at 06:45 Morphine Sulfate (Morphine Sulfate) 4 mg PRN Q1HR PRN IV SEE COMMENTS.; Start 02/21/20 at 06:45 Midazolam HCl 100 ml @ 0 mls/hr CONT PRN IV SEE PROTOCOL Last administered on 02/22/20at 00:56; Start 02/21/20 at 06:45 Fentanyl Citrate 55 ml @ 0 mls/hr CONT PRN IV PAIN/SEDATION Last administered on 02/21/20at 11:45; Start 02/21/20 at 11:00 Ondansetron HCl (Zofran) 4 mg PRN Q6HRS PRN IVP NAUSEA/VOMITING; Start 02/21/20 at 12:15 Famotidine (Pepcid Vial) 20 mg BID IVP ; Start 02/21/20 at 13:00; Stop 02/21/20 at 12:53; Status DC Info (Icu Electrolyte Protocol) 1 ea DAILY MC ; Start 02/22/20 at 09:00 Sodium Chloride (Normal Saline Flush) 3 ml QSHIFT PRN IV AFTER MEDS AND BLOOD DRAWS; Start 02/21/20 at 12:15; Status Cancel Bisacodyl (Dulcolax Supp) 10 mg PRN DAILY PRN NE CONSTIPATION; Start 02/21/20 at 12:15 Piperacillin Sod/ Tazobactam Sod (Zosyn Per Pharmacy) 1 each PRN DAILY PRN MC SEE COMMENTS; Start 02/21/20 at 12:15 Meropenem 500 mg/ Sodium Chloride 50 ml @ 100 mls/hr Q8HRS IV Last administered on 02/22/20at 05:38; Start 02/21/20 at 14:00; Stop 02/22/20 at 08:19; Status DC Pantoprazole Sodium (PROTONIX VIAL for IV PUSH) 40 mg DAILYAC IVP ; Start 02/22/20 at 16:30 Furosemide (Lasix) 40 mg 1X ONCE IVP Last administered on 02/21/20at 16:24; Start 02/21/20 at 15:00; Stop 02/21/20 at 15:01; Status DC Piperacillin Sod/ Tazobactam Sod 3.375 gm/Sodium Chloride 50 ml @ 100 mls/hr Q6HRS IV Last administered on 02/22/20at 06:24; Start 02/21/20 at 18:00 Simvastatin (Zocor) 40 mg QHS PO Last administered on 02/21/20at 22:12; Start 02/21/20 at 21:00 Propranolol HCl (Inderal) 40 mg BID PO ; Start 02/21/20 at 21:00; Status Cancel Apixaban (Eliquis) 5 mg BID PO Last administered on 02/21/20at 22:14; Start 02/21/20 at 21:30 Pantoprazole Sodium (Protonix) 40 mg DAILYAC PO ; Start 02/22/20 at 07:30; Stop 02/21/20 at 22:27; Status DC Propranolol HCl (Inderal) 40 mg BID PO Last administered on 02/21/20at 22:13; Start 02/21/20 at 21:30 Sucralfate (Carafate) 1 gm QID PO ; Start 02/21/20 at 21:30; Stop 02/21/20 at 22:23; Status DC Vitamin D (Vitamin D3) 1,000 unit DAILY PO ; Start 02/22/20 at 09:00 Fenofibrate (Lofibra) 134 mg DAILY PO ; Start 02/22/20 at 09:00 Multivitamins (Thera M Plus) 1 tab DAILY PO ; Start 02/22/20 at 09:00 Pantoprazole Sodium (PROTONIX VIAL for IV PUSH) 40 mg DAILY IVP ; Start 02/22/20 at 09:00 Info (FLU VACCINE SCREEN per RX) 1 each 1X ONCE MC ; Start 02/22/20 at 00:00; Stop 02/22/20 at 00:01; Status UNV Influenza Virus Vaccine Quadrival (Fluzone Quad Syringe) 0.5 ml ONCE ONCE VAX IM ; Start 02/22/20 at 09:00; Stop 02/22/20 at 09:01 Info (Anti-Coagulation Monitoring By Pharmacy) 1 each PRN DAILY PRN MC SEE COMMENTS; Start 02/22/20 at 08:15 Linezolid/Dextrose 300 ml @ 300 mls/hr Q12HR IV ; Start 02/22/20 at 09:00 Active Scripts Active Carafate (Sucralfate) 1 Gm Tablet 1 Tab PO QID 30 Days Protonix (Pantoprazole Sodium) 40 Mg Tablet.dr 40 Mg PO DAILYAC 30 Days Miralax (Polyethylene Glycol 3350) 17 Gm Powd.pack 1 Packet PO DAILY 2 Days dissolve in water Reported D3-50 (Cholecalciferol (Vitamin D3)) 50,000 Unit Capsule 1,000 Unit PO DAILY Propranolol Hcl 40 Mg Tablet 40 Mg PO BID Furosemide 40 Mg Tablet 40 Mg PO BID Eliquis (Apixaban) 5 Mg Tablet 5 Mg PO BID Humalog (Insulin Lispro) 100 Unit/1 Ml Cartridge 100 Unit SQ TIDACHC Lantus (Insulin Glargine,Hum.rec.anlog) 100 Unit/1 Ml Vial 35 Unit SQ HS Hydrocodone-Apap 7.5-325 (Hydrocodone Bit/Acetaminophen) 1 Tab Tablet 1 Tab PO PRN Q6HRS PRN Glimepiride 1 Mg Tablet 1 Mg PO DAILY Simvastatin 40 Mg Tablet 1 Tab PO QHS Fenofibrate 160 Mg Tablet 145 Mg PO HS Propranolol Hcl 40 Mg Tablet 1 Tab PO BID One-Daily Multi-Vitamin (Multivitamin) 1 Each Tablet 1 Tab PO DAILY 30 Days Vitals/I & O Vital Sign - Last 24 Hours 02/21/20 02/21/20 02/21/20 02/21/20 09:13 10:10 11:31 11:45 Pulse 76 83 84 Resp B/P (MAP) 76/57 (63) 118/68 (85) 136/73 (94) Pulse Ox 100 100 100 100 O2 Delivery Ventilator Ventilator Ventilator Ventilator 02/21/20 02/21/20 02/21/20 02/21/20 11:50 12:00 12:15 12:35 Temp 97.9 97.9 Pulse 83 B/P (MAP) 147/59 (88) Pulse Ox 100 100 100 O2 Delivery Ventilator Ventilator Ventilator Mechanical Ventilator 02/21/20 02/21/20 02/21/20 02/21/20 13:01 14:02 15:38 15:42 Pulse 83 82 82 Resp 28 B/P (MAP) 147/59 (88) 136/77 (96) 125/65 (85) Pulse Ox 100 100 100 100 O2 Delivery Ventilator Ventilator Ventilator Ventilator 02/21/20 02/21/20 02/21/20 02/21/20 16:05 16:07 17:26 18:11 Temp 98.7 98.7 Pulse 80 85 81 Resp 28 28 28 B/P (MAP) 117/58 (77) 118/54 (75) 125/59 (81) Pulse Ox 100 100 100 O2 Delivery Ventilator Mechanical Ventilator Ventilator Ventilator 02/21/20 02/21/20 02/21/20 02/21/20 19:00 20:00 20:00 20:30 Temp 100.8 100.8 Pulse 80 70 Resp 28 28 B/P (MAP) 114/51 (72) 116/54 (74) Pulse Ox 100 100 100 O2 Delivery Ventilator Ventilator Mechanical Ventilator Ventilator 02/21/20 02/21/20 02/21/20 02/21/20 21:00 22:00 22:13 23:00 Temp 99.6 99.6 Pulse 90 84 83 75 Resp 28 28 28 B/P (MAP) 149/69 (95) 138/54 (82) 138/54 120/62 (81) Pulse Ox 100 100 100 O2 Delivery Ventilator Ventilator Ventilator 02/21/20 02/21/20 02/21/20 02/22/20 23:53 23:59 23:59 01:00 Temp 98.6 98.6 Pulse 68 69 Resp 28 28 B/P (MAP) 119/56 (77) 130/63 (85) Pulse Ox 100 100 100 O2 Delivery Ventilator Mechanical Ventilator Ventilator Ventilator 02/22/20 02/22/20 02/22/20 02/22/20 02:00 03:00 03:03 04:00 Pulse 65 63 Resp 28 28 B/P (MAP) 125/59 (81) 120/58 (78) Pulse Ox 100 100 100 O2 Delivery Ventilator Ventilator Ventilator Mechanical Ventilator 02/22/20 02/22/20 02/22/20 02/22/20 04:00 05:00 06:00 07:00 Temp 98.4 98.4 Pulse 80 60 58 58 Resp 28 28 28 28 B/P (MAP) 140/69 (92) 100/49 (66) 112/52 (72) 111/84 (93) Pulse Ox 100 100 100 100 O2 Delivery Ventilator Ventilator Ventilator Ventilator 02/22/20 02/22/20 07:35 08:14 Pulse 60 Resp 28 B/P (MAP) 120/52 (74) Pulse Ox 100 100 O2 Delivery Ventilator Ventilator Intake and Output 02/21/20 02/21/20 02/22/20 15:00 23:00 07:00 Intake Total 250 ml 2431 ml Output Total 355 ml 570 ml 500 ml Balance -355 ml -320 ml 1931 ml Justicifation of Admission Dx: Justifications for Admission: Justification of Admission Dx: Yes CHRISTINA BRADSHAW MD Feb 22, 2020 08:40
[2020-02-22] MEDS: APIXABAN 5 MG TABLET. PO SCH (08:46)
[2020-02-22] MEDS: FENOFIBRATE,MICRONIZED 134 MG CAPSULE PO SCH (08:46)
[2020-02-22] MEDS: CHOLECALCIFEROL (VITAMIN D3) 1,000 UNIT TABLET PO SCH (08:46)
[2020-02-22] MEDS: PROPRANOLOL 40 MG TABLET. PO SCH ×2 (08:47→21:03)
[2020-02-22] MEDS: MULTIVITAMINS,THERAPEUTIC 5 ML ORAL LIQUID. PEG SCH (08:48)
--- NOTE | 2020-02-22 08:52 | PDOC ---
PROGRESS NOTES Date of Service: DATE: 02/22/20 TIME: 08:51 Chief Complaint Chief Complaint VTE Prophylaxis Ordered VTE Prophylaxis Devices: Yes VTE Pharmacological Prophylaxi: Yes Assessment/Plan Assessment/Plan impression 1. Acute hypoxic / severe hypercapnic respiratory failure, 2. Chronic obstructive pulmonary disease. 3. Type 2 diabetes mellitus with peripheral neuropathy. 4. Hypertension. 5. Hyperlipidemia. 6. atrial fibrillation 7. History of deep vein thrombosis and pulmonary emboli x 3 for which he was on Coumadin. has now an inferior vena cava filter. Placement of retrievable IVC filter 11/12 8. bilateral lower extremity //chronic venous stasis dermatitis 9. morbid obesity 10. PUI COVID 19 11. 4 mm non bleeding antral gastric ulcer and erosive gastritis (bx) 11/12 12. NATASHA 13, ISCHEMIC CVD CT HEAD 14. CODE STROKE IN ER 15. ACUTE METABOLIC ENCEPHALOPATHY 16, POSSIBLE ASPIRATION, PNEUMONIA, SHOCK 17. Distended gallbladder, pericholecystic fluid and gallstones. Findings are equivocal for acute cholecystitis. 18. Diffuse hepatic steatosis. plan icu bed pulm consult cardiology consult GI CONSULT NEPHROLOGY CONSULT Neurology consult ID CONSULT ECHO 35 MIN CC TIME History of Present Illness History of Present Illness Identification/Chief Complaint Chief Complaint RESP FAILURE, TRANSFER [facility] covid 19 rapid neg History of Present Illness History of Present Illness 69 yr old male, transfer from [place] due to AMS, required vent support for respiratory failure BECAME HYPOXIC 0330, INTUBATED IN ER, WAS OBTUNDED, HAD ELEVATED D-DIMER BUN 32, CR 2.1 UDS NEG, PRO-BNP 5556 WAS CODE STROKE ON PRESENTATION DUE TO AMS RESIDENT OF [facility] , admitted by DR CASTANEDA HERE ON NOV 2019 D DIMER 1.82 BUT RENAL FX PROHIBITS CTA CHEST, DEFER TO PULM poor candidate for long-term anticoagulation. WAS outpatient referral for [facility]AAO by cardiology Past Medical History Past Medical History PAST MEDICAL HISTORY: Positive for diabetes mellitus, hypertension, obesity, obstructive lung disease, hyperlipidemia, peripheral vascular disease, neuropathy, pulmonary embolism, venous stasis dermatitis. SOCIAL HISTORY: Negative for smoking, alcohol, or illicit drug use. ALLERGIES: LISTED ALLERGIC TO INSULIN AND CHLORDIAZEPOXIDE. CURRENT MEDICATIONS: Reviewed. Cardiovascular: AFIB, HTN, Hyperlipidemia Pulmonary: COPD, Pulmonary embolus GI: GERD Heme/Onc: No pertinent hx Hepatobiliary: No pertinent hx Psych: No pertinent hx Musculoskeletal: Osteoarthritis Rheumatologic: No pertinent hx Infectious disease: No pertinent hx Renal/: Chronic renal insuff Endocrine: Diabetes Past Surgical History Past Surgical History: Other Family History Family History: Diabetes, Hypertension Social History Smoke: <1 pack per day ALCOHOL: rare Drugs: None Current Medications Vitals Vitals Vital Signs Date Time Temp Pulse Resp B/P (MAP) Pulse Ox O2 Delivery O2 Flow Rate FiO2 02/22/20 08:47 60 120/52 02/22/20 08:14 28 100 Ventilator 02/22/20 04:00 98.4 98.4 Physical Exam Physical Exam Physical Exam Physical Exam sedated on vent NECK: Supple, no JVP, no lymphadenopathy. LUNGS: Clear. HEART: S1, S2 regular. ABDOMEN: Soft, nontender. No organomegaly. EXTREMITIES: The patient does have lower extremity superficial weeping ulcers bilaterally. Venous insufficiency and stasis dermatitis Breasts: Not examined Abdomen: Soft, No tenderness Rectal Exam: not examined General: Other (sedated ) Heart: Regular rate, Other (distant heart tones ) Lungs: Clear Abdomen: Other (obese ) Extremities: Other (1+ bilateral LE edema. Chronic bilateral LE venous stasis dermatitis ) Labs LABS Exam: Ultrasound abdomen limited Indication: Elevated ammonia Technique: Real-time grayscale and color Doppler images of the right upper quadrant were obtained by the department senior oracle database developer. Comparisons: None FINDINGS: Liver contour is normal. Hepatopedal flow noted within the portal vein. Increased echogenicity of liver. Gallbladder is mildly distended. Numerous gallstones are noted. There is a small amount of pericholecystic fluid. No gallbladder wall thickening. Common bile duct is mildly dilated measuring 7 mm in diameter. Right kidney measures 12.8 cm in length. No hydronephrosis. Aorta and IVC are not well seen. IMPRESSION: 1. Distended gallbladder, pericholecystic fluid and gallstones. Findings are equivocal for acute cholecystitis. 2. Diffuse hepatic steatosis. 3. No right-sided hydronephrosis. Electronically signed by: Zane King MD (02/21/2020 10:28 PM) [facility] DICTATED and SIGNED BY: ZANE KING MD Laboratory Tests Test 02/21/20 16:00 02/22/20 00:25 02/22/20 05:45 02/22/20 06:01 White Blood Count 7.2 x10^3/uL (4.0-11.0) Red Blood Count 3.32 x10^6/uL (4.30-5.70) Hemoglobin 8.4 g/dL (13.0-17.5) Hematocrit 27.2 % (39.0-53.0) Mean Corpuscular Volume 82 fL (79-100) Mean Corpuscular Hemoglobin 25 pg (25-35) Mean Corpuscular Hemoglobin Concent 31 g/dL (31-37) Red Cell Distribution Width 17.7 % (11.5-14.5) Platelet Count 312 x10^3/uL (140-400) Neutrophils (%) (Auto) 82 % (31-73) Lymphocytes (%) (Auto) 7 % (24-48) Monocytes (%) (Auto) 9 % (0-9) Eosinophils (%) (Auto) 1 % (0-3) Basophils (%) (Auto) 1 % (0-3) Neutrophils # (Auto) 5.9 x10^3/uL (1.8-7.7) Lymphocytes # (Auto) 0.5 x10^3/uL (1.0-4.8) Monocytes # (Auto) 0.6 x10^3/uL (0.0-1.1) Eosinophils # (Auto) 0.1 x10^3/uL (0.0-0.7) Basophils # (Auto) 0.1 x10^3/uL (0.0-0.2) Sodium Level 145 mmol/L (136-145) 143 mmol/L (136-145) Potassium Level 4.2 mmol/L (3.5-5.1) 3.6 mmol/L (3.5-5.1) Chloride Level 103 mmol/L (98-107) 103 mmol/L (98-107) Carbon Dioxide Level 39 mmol/L (21-32) 36 mmol/L (21-32) Anion Gap 3 (6-14) 4 (6-14) Blood Urea Nitrogen 36 mg/dL (8-26) 38 mg/dL (8-26) Creatinine 2.2 mg/dL (0.7-1.3) 2.1 mg/dL (0.7-1.3) Estimated GFR (Cockcroft-Gault) 29.9 31.6 BUN/Creatinine Ratio 16 (6-20) 18 (6-20) Glucose Level 95 mg/dL (70-99) 132 mg/dL (70-99) Lactic Acid Level 0.9 mmol/L (0.4-2.0) Calcium Level 9.0 mg/dL (8.5-10.1) 8.4 mg/dL (8.5-10.1) Magnesium Level 1.9 mg/dL (1.8-2.4) Total Bilirubin 0.5 mg/dL (0.2-1.0) 0.5 mg/dL (0.2-1.0) Aspartate Amino Transf (AST/SGOT) 19 U/L (15-37) 20 U/L (15-37) Alanine Aminotransferase (ALT/SGPT) 6 U/L (16-63) 8 U/L (16-63) Alkaline Phosphatase 55 U/L (46-116) 54 U/L (46-116) Ammonia 18 mcmol/L (11-34) 12 mcmol/L (11-34) Troponin I Quantitative < 0.017 ng/mL (0.000-0.055) Total Protein 6.3 g/dL (6.4-8.2) 5.6 g/dL (6.4-8.2) Albumin 2.2 g/dL (3.4-5.0) 1.9 g/dL (3.4-5.0) Albumin/Globulin Ratio 0.5 (1.0-1.7) 0.5 (1.0-1.7) Procalcitonin 0.26 ng/mL (0.00-0.10) Thyroid Stimulating Hormone (TSH) 1.274 uIU/mL (0.358-3.74) Glucose (Fingerstick) 125 mg/dL (70-99) 134 mg/dL (70-99) Prothrombin Time 17.9 SEC (11.7-14.0) Prothromb Time International Ratio 1.5 (0.8-1.1) Activated Partial Thromboplast Time 41 SEC (24-38) Test 02/22/20 06:20 02/22/20 08:00 White Blood Count 6.9 x10^3/uL (4.0-11.0) Red Blood Count 3.13 x10^6/uL (4.30-5.70) Hemoglobin 7.9 g/dL (13.0-17.5) Hematocrit 25.2 % (39.0-53.0) Mean Corpuscular Volume 81 fL (79-100) Mean Corpuscular Hemoglobin 25 pg (25-35) Mean Corpuscular Hemoglobin Concent 31 g/dL (31-37) Red Cell Distribution Width 17.6 % (11.5-14.5) Platelet Count 267 x10^3/uL (140-400) Neutrophils (%) (Auto) 77 % (31-73) Lymphocytes (%) (Auto) 12 % (24-48) Monocytes (%) (Auto) 8 % (0-9) Eosinophils (%) (Auto) 2 % (0-3) Basophils (%) (Auto) 2 % (0-3) Neutrophils # (Auto) 5.3 x10^3/uL (1.8-7.7) Lymphocytes # (Auto) 0.8 x10^3/uL (1.0-4.8) Monocytes # (Auto) 0.5 x10^3/uL (0.0-1.1) Eosinophils # (Auto) 0.1 x10^3/uL (0.0-0.7) Basophils # (Auto) 0.1 x10^3/uL (0.0-0.2) O2 Saturation 96 % (92-99) Arterial Blood pH 7.54 (7.35-7.45) Arterial Blood pCO2 at Patient Temp 39 mmHg (35-46) Arterial Blood pO2 at Patient Temp 78 mmHg (65-108) Arterial Blood HCO3 32 mmol/L (21-28) Arterial Blood Base Excess 9 mmol/L (-3-3) FiO2 70/vent Comment Review of Relevant I have reviewed the following items megan (where applicable) has been applied. Labs Laboratory Tests Test 02/21/20 06:30 02/21/20 07:50 02/21/20 16:00 02/22/20 00:25 SARS-CoV-2 Antigen (Rapid) Negative (NEGATIVE) O2 Saturation 97 % (92-99) Arterial Blood pH 7.31 (7.35-7.45) Arterial Blood pCO2 at Patient Temp 75 mmHg (35-46) Arterial Blood pO2 at Patient Temp 110 mmHg (65-108) Arterial Blood HCO3 37 mmol/L (21-28) Arterial Blood Base Excess 9 mmol/L (-3-3) FiO2 100%+8 White Blood Count 7.2 x10^3/uL (4.0-11.0) Red Blood Count 3.32 x10^6/uL (4.30-5.70) Hemoglobin 8.4 g/dL (13.0-17.5) Hematocrit 27.2 % (39.0-53.0) Mean Corpuscular Volume 82 fL (79-100) Mean Corpuscular Hemoglobin 25 pg (25-35) Mean Corpuscular Hemoglobin Concent 31 g/dL (31-37) Red Cell Distribution Width 17.7 % (11.5-14.5) Platelet Count 312 x10^3/uL (140-400) Neutrophils (%) (Auto) 82 % (31-73) Lymphocytes (%) (Auto) 7 % (24-48) Monocytes (%) (Auto) 9 % (0-9) Eosinophils (%) (Auto) 1 % (0-3) Basophils (%) (Auto) 1 % (0-3) Neutrophils # (Auto) 5.9 x10^3/uL (1.8-7.7) Lymphocytes # (Auto) 0.5 x10^3/uL (1.0-4.8) Monocytes # (Auto) 0.6 x10^3/uL (0.0-1.1) Eosinophils # (Auto) 0.1 x10^3/uL (0.0-0.7) Basophils # (Auto) 0.1 x10^3/uL (0.0-0.2) Sodium Level 145 mmol/L (136-145) Potassium Level 4.2 mmol/L (3.5-5.1) Chloride Level 103 mmol/L (98-107) Carbon Dioxide Level 39 mmol/L (21-32) Anion Gap 3 (6-14) Blood Urea Nitrogen 36 mg/dL (8-26) Creatinine 2.2 mg/dL (0.7-1.3) Estimated GFR (Cockcroft-Gault) 29.9 BUN/Creatinine Ratio 16 (6-20) Glucose Level 95 mg/dL (70-99) Lactic Acid Level 0.9 mmol/L (0.4-2.0) Calcium Level 9.0 mg/dL (8.5-10.1) Magnesium Level 1.9 mg/dL (1.8-2.4) Total Bilirubin 0.5 mg/dL (0.2-1.0) Aspartate Amino Transf (AST/SGOT) 19 U/L (15-37) Alanine Aminotransferase (ALT/SGPT) 6 U/L (16-63) Alkaline Phosphatase 55 U/L (46-116) Ammonia 18 mcmol/L (11-34) Troponin I Quantitative < 0.017 ng/mL (0.000-0.055) Total Protein 6.3 g/dL (6.4-8.2) Albumin 2.2 g/dL (3.4-5.0) Albumin/Globulin Ratio 0.5 (1.0-1.7) Procalcitonin 0.26 ng/mL (0.00-0.10) Thyroid Stimulating Hormone (TSH) 1.274 uIU/mL (0.358-3.74) Glucose (Fingerstick) 125 mg/dL (70-99) Test 02/22/20 05:45 02/22/20 06:01 02/22/20 06:20 02/22/20 08:00 Prothrombin Time 17.9 SEC (11.7-14.0) Prothromb Time International Ratio 1.5 (0.8-1.1) Activated Partial Thromboplast Time 41 SEC (24-38) Sodium Level 143 mmol/L (136-145) Potassium Level 3.6 mmol/L (3.5-5.1) Chloride Level 103 mmol/L (98-107) Carbon Dioxide Level 36 mmol/L (21-32) Anion Gap 4 (6-14) Blood Urea Nitrogen 38 mg/dL (8-26) Creatinine 2.1 mg/dL (0.7-1.3) Estimated GFR (Cockcroft-Gault) 31.6 BUN/Creatinine Ratio 18 (6-20) Glucose Level 132 mg/dL (70-99) Calcium Level 8.4 mg/dL (8.5-10.1) Total Bilirubin 0.5 mg/dL (0.2-1.0) Aspartate Amino Transf (AST/SGOT) 20 U/L (15-37) Alanine Aminotransferase (ALT/SGPT) 8 U/L (16-63) Alkaline Phosphatase 54 U/L (46-116) Ammonia 12 mcmol/L (11-34) Total Protein 5.6 g/dL (6.4-8.2) Albumin 1.9 g/dL (3.4-5.0) Albumin/Globulin Ratio 0.5 (1.0-1.7) Glucose (Fingerstick) 134 mg/dL (70-99) White Blood Count 6.9 x10^3/uL (4.0-11.0) Red Blood Count 3.13 x10^6/uL (4.30-5.70) Hemoglobin 7.9 g/dL (13.0-17.5) Hematocrit 25.2 % (39.0-53.0) Mean Corpuscular Volume 81 fL (79-100) Mean Corpuscular Hemoglobin 25 pg (25-35) Mean Corpuscular Hemoglobin Concent 31 g/dL (31-37) Red Cell Distribution Width 17.6 % (11.5-14.5) Platelet Count 267 x10^3/uL (140-400) Neutrophils (%) (Auto) 77 % (31-73) Lymphocytes (%) (Auto) 12 % (24-48) Monocytes (%) (Auto) 8 % (0-9) Eosinophils (%) (Auto) 2 % (0-3) Basophils (%) (Auto) 2 % (0-3) Neutrophils # (Auto) 5.3 x10^3/uL (1.8-7.7) Lymphocytes # (Auto) 0.8 x10^3/uL (1.0-4.8) Monocytes # (Auto) 0.5 x10^3/uL (0.0-1.1) Eosinophils # (Auto) 0.1 x10^3/uL (0.0-0.7) Basophils # (Auto) 0.1 x10^3/uL (0.0-0.2) O2 Saturation 96 % (92-99) Arterial Blood pH 7.54 (7.35-7.45) Arterial Blood pCO2 at Patient Temp 39 mmHg (35-46) Arterial Blood pO2 at Patient Temp 78 mmHg (65-108) Arterial Blood HCO3 32 mmol/L (21-28) Arterial Blood Base Excess 9 mmol/L (-3-3) FiO2 70/vent Laboratory Tests Test 02/21/20 16:00 02/22/20 00:25 02/22/20 05:45 02/22/20 06:01 White Blood Count 7.2 x10^3/uL (4.0-11.0) Red Blood Count 3.32 x10^6/uL (4.30-5.70) Hemoglobin 8.4 g/dL (13.0-17.5) Hematocrit 27.2 % (39.0-53.0) Mean Corpuscular Volume 82 fL (79-100) Mean Corpuscular Hemoglobin 25 pg (25-35) Mean Corpuscular Hemoglobin Concent 31 g/dL (31-37) Red Cell Distribution Width 17.7 % (11.5-14.5) Platelet Count 312 x10^3/uL (140-400) Neutrophils (%) (Auto) 82 % (31-73) Lymphocytes (%) (Auto) 7 % (24-48) Monocytes (%) (Auto) 9 % (0-9) Eosinophils (%) (Auto) 1 % (0-3) Basophils (%) (Auto) 1 % (0-3) Neutrophils # (Auto) 5.9 x10^3/uL (1.8-7.7) Lymphocytes # (Auto) 0.5 x10^3/uL (1.0-4.8) Monocytes # (Auto) 0.6 x10^3/uL (0.0-1.1) Eosinophils # (Auto) 0.1 x10^3/uL (0.0-0.7) Basophils # (Auto) 0.1 x10^3/uL (0.0-0.2) Sodium Level 145 mmol/L (136-145) 143 mmol/L (136-145) Potassium Level 4.2 mmol/L (3.5-5.1) 3.6 mmol/L (3.5-5.1) Chloride Level 103 mmol/L (98-107) 103 mmol/L (98-107) Carbon Dioxide Level 39 mmol/L (21-32) 36 mmol/L (21-32) Anion Gap 3 (6-14) 4 (6-14) Blood Urea Nitrogen 36 mg/dL (8-26) 38 mg/dL (8-26) Creatinine 2.2 mg/dL (0.7-1.3) 2.1 mg/dL (0.7-1.3) Estimated GFR (Cockcroft-Gault) 29.9 31.6 BUN/Creatinine Ratio 16 (6-20) 18 (6-20) Glucose Level 95 mg/dL (70-99) 132 mg/dL (70-99) Lactic Acid Level 0.9 mmol/L (0.4-2.0) Calcium Level 9.0 mg/dL (8.5-10.1) 8.4 mg/dL (8.5-10.1) Magnesium Level 1.9 mg/dL (1.8-2.4) Total Bilirubin 0.5 mg/dL (0.2-1.0) 0.5 mg/dL (0.2-1.0) Aspartate Amino Transf (AST/SGOT) 19 U/L (15-37) 20 U/L (15-37) Alanine Aminotransferase (ALT/SGPT) 6 U/L (16-63) 8 U/L (16-63) Alkaline Phosphatase 55 U/L (46-116) 54 U/L (46-116) Ammonia 18 mcmol/L (11-34) 12 mcmol/L (11-34) Troponin I Quantitative < 0.017 ng/mL (0.000-0.055) Total Protein 6.3 g/dL (6.4-8.2) 5.6 g/dL (6.4-8.2) Albumin 2.2 g/dL (3.4-5.0) 1.9 g/dL (3.4-5.0) Albumin/Globulin Ratio 0.5 (1.0-1.7) 0.5 (1.0-1.7) Procalcitonin 0.26 ng/mL (0.00-0.10) Thyroid Stimulating Hormone (TSH) 1.274 uIU/mL (0.358-3.74) Glucose (Fingerstick) 125 mg/dL (70-99) 134 mg/dL (70-99) Prothrombin Time 17.9 SEC (11.7-14.0) Prothromb Time International Ratio 1.5 (0.8-1.1) Activated Partial Thromboplast Time 41 SEC (24-38) Test 02/22/20 06:20 02/22/20 08:00 White Blood Count 6.9 x10^3/uL (4.0-11.0) Red Blood Count 3.13 x10^6/uL (4.30-5.70) Hemoglobin 7.9 g/dL (13.0-17.5) Hematocrit 25.2 % (39.0-53.0) Mean Corpuscular Volume 81 fL (79-100) Mean Corpuscular Hemoglobin 25 pg (25-35) Mean Corpuscular Hemoglobin Concent 31 g/dL (31-37) Red Cell Distribution Width 17.6 % (11.5-14.5) Platelet Count 267 x10^3/uL (140-400) Neutrophils (%) (Auto) 77 % (31-73) Lymphocytes (%) (Auto) 12 % (24-48) Monocytes (%) (Auto) 8 % (0-9) Eosinophils (%) (Auto) 2 % (0-3) Basophils (%) (Auto) 2 % (0-3) Neutrophils # (Auto) 5.3 x10^3/uL (1.8-7.7) Lymphocytes # (Auto) 0.8 x10^3/uL (1.0-4.8) Monocytes # (Auto) 0.5 x10^3/uL (0.0-1.1) Eosinophils # (Auto) 0.1 x10^3/uL (0.0-0.7) Basophils # (Auto) 0.1 x10^3/uL (0.0-0.2) O2 Saturation 96 % (92-99) Arterial Blood pH 7.54 (7.35-7.45) Arterial Blood pCO2 at Patient Temp 39 mmHg (35-46) Arterial Blood pO2 at Patient Temp 78 mmHg (65-108) Arterial Blood HCO3 32 mmol/L (21-28) Arterial Blood Base Excess 9 mmol/L (-3-3) FiO2 70/vent Medications Current Medications Sodium Chloride (Normal Saline Flush) 3 ml QSHIFT PRN IV AFTER MEDS AND BLOOD DRAWS; Start 02/21/20 at 06:45 Sodium Chloride 1,000 ml @ 100 mls/hr Q10H IV Last administered on 02/22/20at 05:46; Start 02/21/20 at 06:45 Fentanyl Citrate 30 ml @ 0 mls/hr CONT PRN IV SEE PROTOCOL Last administered on 02/21/20at 07:26; Start 02/21/20 at 06:45; Stop 02/21/20 at 10:59; Status DC Propofol 100 ml @ 0 mls/hr CONT PRN IV PER PROTOCOL Last administered on 02/21/20at 08:03; Start 02/21/20 at 06:45 Fentanyl Citrate (Fentanyl 2ml Vial) 25 mcg PRN Q1HR PRN IV SEE COMMENTS; Start 02/21/20 at 06:45 Fentanyl Citrate (Fentanyl 2ml Vial) 50 mcg PRN Q1HR PRN IV SEE COMMENTS; Start 02/21/20 at 06:45 Famotidine (Pepcid Vial) 20 mg BID IVP Last administered on 02/21/20at 10:23; Start 02/21/20 at 09:00; Stop 02/21/20 at 12:53; Status DC Morphine Sulfate (Morphine Sulfate) 2 mg PRN Q1HR PRN IV SEE COMMENTS.; Start 02/21/20 at 06:45 Morphine Sulfate (Morphine Sulfate) 4 mg PRN Q1HR PRN IV SEE COMMENTS.; Start 02/21/20 at 06:45 Midazolam HCl 100 ml @ 0 mls/hr CONT PRN IV SEE PROTOCOL Last administered on 02/22/20at 00:56; Start 02/21/20 at 06:45 Fentanyl Citrate 55 ml @ 0 mls/hr CONT PRN IV PAIN/SEDATION Last administered on 02/21/20at 11:45; Start 02/21/20 at 11:00 Ondansetron HCl (Zofran) 4 mg PRN Q6HRS PRN IVP NAUSEA/VOMITING; Start 02/21/20 at 12:15 Famotidine (Pepcid Vial) 20 mg BID IVP ; Start 02/21/20 at 13:00; Stop 02/20 at 12:53; Status DC Info (Icu Electrolyte Protocol) 1 ea DAILY MC ; Start 02/22/20 at 09:00 Sodium Chloride (Normal Saline Flush) 3 ml QSHIFT PRN IV AFTER MEDS AND BLOOD DRAWS; Start 02/21/20 at 12:15; Status Cancel Bisacodyl (Dulcolax Supp) 10 mg PRN DAILY PRN AL CONSTIPATION; Start 02/21/20 at 12:15 Piperacillin Sod/ Tazobactam Sod (Zosyn Per Pharmacy) 1 each PRN DAILY PRN MC SEE COMMENTS; Start 02/21/20 at 12:15 Meropenem 500 mg/ Sodium Chloride 50 ml @ 100 mls/hr Q8HRS IV Last administere d on 02/22/20at 05:38; Start 02/21/20 at 14:00; Stop 02/22/20 at 08:19; Status DC Pantoprazole Sodium (PROTONIX VIAL for IV PUSH) 40 mg DAILYAC IVP ; Start 02/22/20 at 16:30; Status Cancel Furosemide (Lasix) 40 mg 1X ONCE IVP Last administered on 02/21/20at 16:24; Start 02/21/20 at 15:00; Stop 02/21/20 at 15:01; Status DC Piperacillin Sod/ Tazobactam Sod 3.375 gm/Sodium Chloride 50 ml @ 100 mls/hr Q6HRS IV Last administered on 02/22/20at 06:24; Start 02/21/20 at 18:00 Simvastatin (Zocor) 40 mg QHS PO Last administered on 02/21/20at 22:12; Start 02/21/20 at 21:00 Propranolol HCl (Inderal) 40 mg BID PO ; Start 02/21/20 at 21:00; Status Cancel Apixaban (Eliquis) 5 mg BID PO Last administered on 02/22/20at 08:46; Start 02/21/20 at 21:30 Pantoprazole Sodium (Protonix) 40 mg DAILYAC PO ; Start 02/22/20 at 07:30; Stop 02/21/20 at 22:27; Status DC Propranolol HCl (Inderal) 40 mg BID PO Last administered on 02/22/20at 08:47; Start 02/21/20 at 21:30 Sucralfate (Carafate) 1 gm QID PO ; Start 02/21/20 at 21:30; Stop 02/21/20 at 22:23; Status DC Vitamin D (Vitamin D3) 1,000 unit DAILY PO Last administered on 02/22/20at 08:46; Start 02/22/20 at 09:00 Fenofibrate (Lofibra) 134 mg DAILY PO Last administered on 02/22/20at 08:46; Start 02/22/20 at 09:00 Multivitamins (Thera M Plus) 1 tab DAILY PO ; Start 02/22/20 at 09:00; Stop 02/22/20 at 08:44; Status DC Pantoprazole Sodium (PROTONIX VIAL for IV PUSH) 40 mg DAILY IVP Last administered on 02/22/20at 08:38; Start 02/22/20 at 09:00 Info (FLU VACCINE SCREEN per RX) 1 each 1X ONCE MC ; Start 02/22/20 at 00:00; Stop 02/22/20 at 00:01; Status UNV Influenza Virus Vaccine Quadrival (Fluzone Quad Syringe) 0.5 ml ONCE ONCE VAX IM ; Start 02/22/20 at 09:00; Stop 02/22/20 at 09:01 Info (Anti-Coagulation Monitoring By Pharmacy) 1 each PRN DAILY PRN MC SEE COMMENTS; Start 02/22/20 at 08:15 Linezolid/Dextrose 300 ml @ 300 mls/hr Q12HR IV Last administered on 02/22/20at 08:41; Start 02/22/20 at 09:00 Multivitamins/ Minerals Therapeutic (Centrum Multivit-Mineral Liq) 5 ml DAILY PEG Last administered on 02/22/20at 08:48; Start 02/22/20 at 09:00 Active Scripts Active Carafate (Sucralfate) 1 Gm Tablet 1 Tab PO QID 30 Days Protonix (Pantoprazole Sodium) 40 Mg Tablet.dr 40 Mg PO DAILYAC 30 Days Miralax (Polyethylene Glycol 3350) 17 Gm Powd.pack 1 Packet PO DAILY 2 Days dissolve in water Reported D3-50 (Cholecalciferol (Vitamin D3)) 50,000 Unit Capsule 1,000 Unit PO DAILY Propranolol Hcl 40 Mg Tablet 40 Mg PO BID Furosemide 40 Mg Tablet 40 Mg PO BID Eliquis (Apixaban) 5 Mg Tablet 5 Mg PO BID Humalog (Insulin Lispro) 100 Unit/1 Ml Cartridge 100 Unit SQ TIDACHC Lantus (Insulin Glargine,Hum.rec.anlog) 100 Unit/1 Ml Vial 35 Unit SQ HS Hydrocodone-Apap 7.5-325 (Hydrocodone Bit/Acetaminophen) 1 Tab Tablet 1 Tab PO PRN Q6HRS PRN Glimepiride 1 Mg Tablet 1 Mg PO DAILY Simvastatin 40 Mg Tablet 1 Tab PO QHS Fenofibrate 160 Mg Tablet 145 Mg PO HS Propranolol Hcl 40 Mg Tablet 1 Tab PO BID One-Daily Multi-Vitamin (Multivitamin) 1 Each Tablet 1 Tab PO DAILY 30 Days Vitals/I & O Vital Sign - Last 24 Hours 02/21/20 02/21/20 02/21/20 02/21/20 09:13 10:10 11:31 11:45 Pulse 76 83 84 Resp 28 B/P (MAP) 76/57 (63) 118/68 (85) 136/73 (94) Pulse Ox 100 100 100 100 O2 Delivery Ventilator Ventilator Ventilator Ventilator 02/21/20 02/21/20 02/21/20 02/21/20 11:50 12:00 12:15 12:35 Temp 97.9 97.9 Pulse 83 Resp B/P (MAP) 147/59 (88) Pulse Ox 100 100 100 O2 Delivery Ventilator Ventilator Ventilator Mechanical Ventilator 02/21/20 02/21/20 02/21/20 02/21/20 13:01 14:02 15:38 15:42 Pulse 83 82 82 Resp 28 B/P (MAP) 147/59 (88) 136/77 (96) 125/65 (85) Pulse Ox 100 100 100 100 O2 Delivery Ventilator Ventilator Ventilator Ventilator 02/21/20 02/21/20 02/21/20 02/21/20 16:05 16:07 17:26 18:11 Temp 98.7 98.7 Pulse 80 85 81 Resp B/P (MAP) 117/58 (77) 118/54 (75) 125/59 (81) Pulse Ox 100 100 100 O2 Delivery Ventilator Mechanical Ventilator Ventilator Ventilator 02/21/20 02/21/20 02/21/20 02/21/20 19:00 20:00 20:00 20:30 Temp 100.8 100.8 Pulse 80 70 Resp B/P (MAP) 114/51 (72) 116/54 (74) Pulse Ox 100 100 100 O2 Delivery Ventilator Ventilator Mechanical Ventilator Ventilator 12/02/21/20 02/21/20 02/21/20 21:00 22:00 22:13 23:00 Temp 99.6 99.6 Pulse 90 84 83 75 Resp 28 28 28 B/P (MAP) 149/69 (95) 138/54 (82) 138/54 120/62 (81) Pulse Ox 100 100 100 O2 Delivery Ventilator Ventilator Ventilator 02/21/20 02/21/20 02/21/20 02/22/20 23:53 23:59 23:59 01:00 Temp 98.6 98.6 Pulse 68 69 Resp 28 28 B/P (MAP) 119/56 (77) 130/63 (85) Pulse Ox 100 100 100 O2 Delivery Ventilator Mechanical Ventilator Ventilator Ventilator 02/22/20 02/22/20 02/22/20 02/22/20 02:00 03:00 03:03 04:00 Pulse 65 63 Resp 28 28 B/P (MAP) 125/59 (81) 120/58 (78) Pulse Ox 100 100 100 O2 Delivery Ventilator Ventilator Ventilator Mechanical Ventilator 02/22/20 02/22/20 02/22/20 02/22/20 04:00 05:00 06:00 07:00 Temp 98.4 98.4 Pulse 80 60 58 58 Resp 28 28 28 28 B/P (MAP) 140/69 (92) 100/49 (66) 112/52 (72) 111/84 (93) Pulse Ox 100 100 100 100 O2 Delivery Ventilator Ventilator Ventilator Ventilator 02/22/20 02/22/20 02/22/20 07:35 08:14 08:47 Pulse 60 60 Resp 28 B/P (MAP) 120/52 (74) 120/52 Pulse Ox 100 100 O2 Delivery Ventilator Ventilator Intake and Output 02/21/20 02/21/20 02/22/20 15:00 23:00 07:00 Intake Total 250 ml 2431 ml Output Total 355 ml 570 ml 500 ml Balance -355 ml -320 ml 1931 ml Justicifation of Admission Dx: Justifications for Admission: Justification of Admission Dx: Yes RHONDA CORREIA MD Feb 22, 2020 08:51
[2020-02-22] MEDS ORDERED: FLU VACC QS 2020-21(6MOS+)/PF 0.5 ML SYRINGE. VAX IM ONE (09:00)
[2020-02-22] MEDS ORDERED: MULTIVITAMIN with MINERAL TABLET. PO SCH (09:00)
--- NOTE | 2020-02-22 09:19 | PDOC ---
PULMONARY PROGRESS NOTES DATE: 02/22/20 TIME: 09:18 Subjective On vent support 70%, and PEEP of 6 no overnight concerns from nursing Vitals Vital Signs Date Time Temp Pulse Resp B/P (MAP) Pulse Ox O2 Delivery O2 Flow Rate FiO2 02/22/20 09:04 98.3 61 28 108/50 (69) 100 Ventilator 98.3 Comments intubated/sedated Lungs: Crackles (RLL) Cardiovascular: S1, S2 Abdomen: Other Extremities: Other (BLE edema ) Skin: Warm, Dry Labs Laboratory Tests Test 02/21/20 06:30 02/21/20 07:50 02/21/20 16:00 02/22/20 00:25 SARS-CoV-2 Antigen (Rapid) Negative (NEGATIVE) O2 Saturation 97 % (92-99) Arterial Blood pH 7.31 (7.35-7.45) Arterial Blood pCO2 at Patient Temp 75 mmHg (35-46) Arterial Blood pO2 at Patient Temp 110 mmHg (65-108) Arterial Blood HCO3 37 mmol/L (21-28) Arterial Blood Base Excess 9 mmol/L (-3-3) FiO2 100%+8 White Blood Count 7.2 x10^3/uL (4.0-11.0) Red Blood Count 3.32 x10^6/uL (4.30-5.70) Hemoglobin 8.4 g/dL (13.0-17.5) Hematocrit 27.2 % (39.0-53.0) Mean Corpuscular Volume 82 fL (79-100) Mean Corpuscular Hemoglobin 25 pg (25-35) Mean Corpuscular Hemoglobin Concent 31 g/dL (31-37) Red Cell Distribution Width 17.7 % (11.5-14.5) Platelet Count 312 x10^3/uL (140-400) Neutrophils (%) (Auto) 82 % (31-73) Lymphocytes (%) (Auto) 7 % (24-48) Monocytes (%) (Auto) 9 % (0-9) Eosinophils (%) (Auto) 1 % (0-3) Basophils (%) (Auto) 1 % (0-3) Neutrophils # (Auto) 5.9 x10^3/uL (1.8-7.7) Lymphocytes # (Auto) 0.5 x10^3/uL (1.0-4.8) Monocytes # (Auto) 0.6 x10^3/uL (0.0-1.1) Eosinophils # (Auto) 0.1 x10^3/uL (0.0-0.7) Basophils # (Auto) 0.1 x10^3/uL (0.0-0.2) Sodium Level 145 mmol/L (136-145) Potassium Level 4.2 mmol/L (3.5-5.1) Chloride Level 103 mmol/L (98-107) Carbon Dioxide Level 39 mmol/L (21-32) Anion Gap 3 (6-14) Blood Urea Nitrogen 36 mg/dL (8-26) Creatinine 2.2 mg/dL (0.7-1.3) Estimated GFR (Cockcroft-Gault) 29.9 BUN/Creatinine Ratio 16 (6-20) Glucose Level 95 mg/dL (70-99) Lactic Acid Level 0.9 mmol/L (0.4-2.0) Calcium Level 9.0 mg/dL (8.5-10.1) Magnesium Level 1.9 mg/dL (1.8-2.4) Total Bilirubin 0.5 mg/dL (0.2-1.0) Aspartate Amino Transf (AST/SGOT) 19 U/L (15-37) Alanine Aminotransferase (ALT/SGPT) 6 U/L (16-63) Alkaline Phosphatase 55 U/L (46-116) Ammonia 18 mcmol/L (11-34) Troponin I Quantitative < 0.017 ng/mL (0.000-0.055) Total Protein 6.3 g/dL (6.4-8.2) Albumin 2.2 g/dL (3.4-5.0) Albumin/Globulin Ratio 0.5 (1.0-1.7) Procalcitonin 0.26 ng/mL (0.00-0.10) Thyroid Stimulating Hormone (TSH) 1.274 uIU/mL (0.358-3.74) Glucose (Fingerstick) 125 mg/dL (70-99) Test 02/22/20 05:45 02/22/20 06:01 02/22/20 06:20 02/22/20 08:00 Prothrombin Time 17.9 SEC (11.7-14.0) Prothromb Time International Ratio 1.5 (0.8-1.1) Activated Partial Thromboplast Time 41 SEC (24-38) Sodium Level 143 mmol/L (136-145) Potassium Level 3.6 mmol/L (3.5-5.1) Chloride Level 103 mmol/L (98-107) Carbon Dioxide Level 36 mmol/L (21-32) Anion Gap 4 (6-14) Blood Urea Nitrogen 38 mg/dL (8-26) Creatinine 2.1 mg/dL (0.7-1.3) Estimated GFR (Cockcroft-Gault) 31.6 BUN/Creatinine Ratio 18 (6-20) Glucose Level 132 mg/dL (70-99) Calcium Level 8.4 mg/dL (8.5-10.1) Total Bilirubin 0.5 mg/dL (0.2-1.0) Aspartate Amino Transf (AST/SGOT) 20 U/L (15-37) Alanine Aminotransferase (ALT/SGPT) 8 U/L (16-63) Alkaline Phosphatase 54 U/L (46-116) Ammonia 12 mcmol/L (11-34) Total Protein 5.6 g/dL (6.4-8.2) Albumin 1.9 g/dL (3.4-5.0) Albumin/Globulin Ratio 0.5 (1.0-1.7) Glucose (Fingerstick) 134 mg/dL (70-99) White Blood Count 6.9 x10^3/uL (4.0-11.0) Red Blood Count 3.13 x10^6/uL (4.30-5.70) Hemoglobin 7.9 g/dL (13.0-17.5) Hematocrit 25.2 % (39.0-53.0) Mean Corpuscular Volume 81 fL (79-100) Mean Corpuscular Hemoglobin 25 pg (25-35) Mean Corpuscular Hemoglobin Concent 31 g/dL (31-37) Red Cell Distribution Width 17.6 % (11.5-14.5) Platelet Count 267 x10^3/uL (140-400) Neutrophils (%) (Auto) 77 % (31-73) Lymphocytes (%) (Auto) 12 % (24-48) Monocytes (%) (Auto) 8 % (0-9) Eosinophils (%) (Auto) 2 % (0-3) Basophils (%) (Auto) 2 % (0-3) Neutrophils # (Auto) 5.3 x10^3/uL (1.8-7.7) Lymphocytes # (Auto) 0.8 x10^3/uL (1.0-4.8) Monocytes # (Auto) 0.5 x10^3/uL (0.0-1.1) Eosinophils # (Auto) 0.1 x10^3/uL (0.0-0.7) Basophils # (Auto) 0.1 x10^3/uL (0.0-0.2) O2 Saturation 96 % (92-99) Arterial Blood pH 7.54 (7.35-7.45) Arterial Blood pCO2 at Patient Temp 39 mmHg (35-46) Arterial Blood pO2 at Patient Temp 78 mmHg (65-108) Arterial Blood HCO3 32 mmol/L (21-28) Arterial Blood Base Excess 9 mmol/L (-3-3) FiO2 70/vent Laboratory Tests Test 02/21/20 16:00 02/22/20 00:25 02/22/20 05:45 02/22/20 06:01 White Blood Count 7.2 x10^3/uL (4.0-11.0) Red Blood Count 3.32 x10^6/uL (4.30-5.70) Hemoglobin 8.4 g/dL (13.0-17.5) Hematocrit 27.2 % (39.0-53.0) Mean Corpuscular Volume 82 fL (79-100) Mean Corpuscular Hemoglobin 25 pg (25-35) Mean Corpuscular Hemoglobin Concent 31 g/dL (31-37) Red Cell Distribution Width 17.7 % (11.5-14.5) Platelet Count 312 x10^3/uL (140-400) Neutrophils (%) (Auto) 82 % (31-73) Lymphocytes (%) (Auto) 7 % (24-48) Monocytes (%) (Auto) 9 % (0-9) Eosinophils (%) (Auto) 1 % (0-3) Basophils (%) (Auto) 1 % (0-3) Neutrophils # (Auto) 5.9 x10^3/uL (1.8-7.7) Lymphocytes # (Auto) 0.5 x10^3/uL (1.0-4.8) Monocytes # (Auto) 0.6 x10^3/uL (0.0-1.1) Eosinophils # (Auto) 0.1 x10^3/uL (0.0-0.7) Basophils # (Auto) 0.1 x10^3/uL (0.0-0.2) Sodium Level 145 mmol/L (136-145) 143 mmol/L (136-145) Potassium Level 4.2 mmol/L (3.5-5.1) 3.6 mmol/L (3.5-5.1) Chloride Level 103 mmol/L (98-107) 103 mmol/L (98-107) Carbon Dioxide Level 39 mmol/L (21-32) 36 mmol/L (21-32) Anion Gap 3 (6-14) 4 (6-14) Blood Urea Nitrogen 36 mg/dL (8-26) 38 mg/dL (8-26) Creatinine 2.2 mg/dL (0.7-1.3) 2.1 mg/dL (0.7-1.3) Estimated GFR (Cockcroft-Gault) 29.9 31.6 BUN/Creatinine Ratio 16 (6-20) 18 (6-20) Glucose Level 95 mg/dL (70-99) 132 mg/dL (70-99) Lactic Acid Level 0.9 mmol/L (0.4-2.0) Calcium Level 9.0 mg/dL (8.5-10.1) 8.4 mg/dL (8.5-10.1) Magnesium Level 1.9 mg/dL (1.8-2.4) Total Bilirubin 0.5 mg/dL (0.2-1.0) 0.5 mg/dL (0.2-1.0) Aspartate Amino Transf (AST/SGOT) 19 U/L (15-37) 20 U/L (15-37) Alanine Aminotransferase (ALT/SGPT) 6 U/L (16-63) 8 U/L (16-63) Alkaline Phosphatase 55 U/L (46-116) 54 U/L (46-116) Ammonia 18 mcmol/L (11-34) 12 mcmol/L (11-34) Troponin I Quantitative < 0.017 ng/mL (0.000-0.055) Total Protein 6.3 g/dL (6.4-8.2) 5.6 g/dL (6.4-8.2) Albumin 2.2 g/dL (3.4-5.0) 1.9 g/dL (3.4-5.0) Albumin/Globulin Ratio 0.5 (1.0-1.7) 0.5 (1.0-1.7) Procalcitonin 0.26 ng/mL (0.00-0.10) Thyroid Stimulating Hormone (TSH) 1.274 uIU/mL (0.358-3.74) Glucose (Fingerstick) 125 mg/dL (70-99) 134 mg/dL (70-99) Prothrombin Time 17.9 SEC (11.7-14.0) Prothromb Time International Ratio 1.5 (0.8-1.1) Activated Partial Thromboplast Time 41 SEC (24-38) Test 02/22/20 06:20 02/22/20 08:00 White Blood Count 6.9 x10^3/uL (4.0-11.0) Red Blood Count 3.13 x10^6/uL (4.30-5.70) Hemoglobin 7.9 g/dL (13.0-17.5) Hematocrit 25.2 % (39.0-53.0) Mean Corpuscular Volume 81 fL (79-100) Mean Corpuscular Hemoglobin 25 pg (25-35) Mean Corpuscular Hemoglobin Concent 31 g/dL (31-37) Red Cell Distribution Width 17.6 % (11.5-14.5) Platelet Count 267 x10^3/uL (140-400) Neutrophils (%) (Auto) 77 % (31-73) Lymphocytes (%) (Auto) 12 % (24-48) Monocytes (%) (Auto) 8 % (0-9) Eosinophils (%) (Auto) 2 % (0-3) Basophils (%) (Auto) 2 % (0-3) Neutrophils # (Auto) 5.3 x10^3/uL (1.8-7.7) Lymphocytes # (Auto) 0.8 x10^3/uL (1.0-4.8) Monocytes # (Auto) 0.5 x10^3/uL (0.0-1.1) Eosinophils # (Auto) 0.1 x10^3/uL (0.0-0.7) Basophils # (Auto) 0.1 x10^3/uL (0.0-0.2) O2 Saturation 96 % (92-99) Arterial Blood pH 7.54 (7.35-7.45) Arterial Blood pCO2 at Patient Temp 39 mmHg (35-46) Arterial Blood pO2 at Patient Temp 78 mmHg (65-108) Arterial Blood HCO3 32 mmol/L (21-28) Arterial Blood Base Excess 9 mmol/L (-3-3) FiO2 70/vent Medications Active Scripts Medications Dose Route/Sig Max Daily Dose Days Date Category Dose Instructions D3-50 (Cholecalciferol (Vitamin D3)) 50,000 Unit Capsule 1,000 Unit PO DAILY 02/21/20 Reported Propranolol Hcl 40 Mg Tablet 40 Mg PO BID 02/21/20 Reported Furosemide 40 Mg Tablet 40 Mg PO BID 02/21/20 Reported Eliquis (Apixaban) 5 Mg Tablet 5 Mg PO BID 02/21/20 Reported Humalog (Insulin Lispro) 100 Unit/1 Ml Cartridge 100 Unit SQ TIDACHC 02/21/20 Reported Lantus (Insulin Glargine,Hum.rec.anlog) 100 Unit/1 Ml Vial 35 Unit SQ HS 02/21/20 Reported Hydrocodone-Apap 7.5-325 (Hydrocodone Bit/Acetaminophen) 1 Tab Tablet 1 Tab PO PRN Q6HRS PRN 02/21/20 Reported Glimepiride 1 Mg Tablet 1 Mg PO DAILY 02/21/20 Reported Carafate (Sucralfate) 1 Gm Tablet 1 Tab PO QID 30 11/11/19 Rx Protonix (Pantoprazole Sodium) 40 Mg Tablet.dr 40 Mg PO DAILYAC 30 11/11/19 Rx Miralax (Polyethylene Glycol 3350) 17 Gm Powd.pack 1 Packet PO DAILY 2 11/11/19 Rx dissolve in water Simvastatin 40 Mg Tablet 1 Tab PO QHS 11/06/19 Reported Fenofibrate 160 Mg Tablet 145 Mg PO HS 11/06/19 Reported Propranolol Hcl 40 Mg Tablet 1 Tab PO BID 11/06/19 Reported One-Daily Multi-Vitamin (Multivitamin) 1 Each Tablet 1 Tab PO DAILY 30 11/06/19 Reported Comments CXR IMPRESSION: 1.New right internal jugular central line with tip at the cavoatrial junction 2. Otherwise stable chest radiograph Impression . IMPRESSION: 1. Acute on chronic hypoxemic hypercapnic respiratory failure, required intubation 2. Paroxysmal atrial fibrillation. 3. History of deep venous thrombosis, PE, status post IVC filter placement. 4. History of anemia with history of recent gastrointestinal bleed. 5. Hypertension. 6. Hyperlipidemia. 7. Acute on chronic kidney disease. 8. Acute exacerbation of chronic obstructive pulmonary disease. 9. Acute on chronic metabolic toxic, possible toxic encephalopathy. Plan . Continue current vent support currently on 70% and PEEP of 8 Follow CXR and ABG, make changes as indicated-- Follow nephrology recommendations Follow cardiology recommendations--- continue diuresis COVID-19 pending Continue empiric antibiotics, currently on Zyvox and Zosyn DVT/GI prophylaxis Critical care time 0800--8:30 AM Discussed with RN and RT CHRISTIE ALMARAZ MD Feb 22, 2020 09:19
--- NOTE | 2020-02-22 09:22 | PDOC ---
DINO SAHA ROCHELLE 02/22/20 0922: CARDIO Progress Notes Date and Time Date of Service 02/22/20 Time of Evaluation 0915 Subjective Subjective: Other (intubated, sedated) Vitals Vitals Vital Signs Date Time Temp Pulse Resp B/P (MAP) Pulse Ox O2 Delivery O2 Flow Rate FiO2 02/22/20 09:04 98.3 61 28 108/50 (69) 100 Ventilator 98.3 Weight Weight [ ] Input and Output Intake and Output Intake and Output 02/22/20 07:00 Intake Total 2681 ml Output Total 1425 ml Balance 1256 ml Intake IV Total 1824 ml Tube Feeding 557 ml Other 300 ml Output Urine Total 1425 ml Laboratory Labs Laboratory Tests Test 02/21/20 16:00 02/22/20 00:25 02/22/20 05:45 02/22/20 06:01 White Blood Count 7.2 x10^3/uL (4.0-11.0) Red Blood Count 3.32 x10^6/uL (4.30-5.70) Hemoglobin 8.4 g/dL (13.0-17.5) Hematocrit 27.2 % (39.0-53.0) Mean Corpuscular Volume 82 fL (79-100) Mean Corpuscular Hemoglobin 25 pg (25-35) Mean Corpuscular Hemoglobin Concent 31 g/dL (31-37) Red Cell Distribution Width 17.7 % (11.5-14.5) Platelet Count 312 x10^3/uL (140-400) Neutrophils (%) (Auto) 82 % (31-73) Lymphocytes (%) (Auto) 7 % (24-48) Monocytes (%) (Auto) 9 % (0-9) Eosinophils (%) (Auto) 1 % (0-3) Basophils (%) (Auto) 1 % (0-3) Neutrophils # (Auto) 5.9 x10^3/uL (1.8-7.7) Lymphocytes # (Auto) 0.5 x10^3/uL (1.0-4.8) Monocytes # (Auto) 0.6 x10^3/uL (0.0-1.1) Eosinophils # (Auto) 0.1 x10^3/uL (0.0-0.7) Basophils # (Auto) 0.1 x10^3/uL (0.0-0.2) Sodium Level 145 mmol/L (136-145) 143 mmol/L (136-145) Potassium Level 4.2 mmol/L (3.5-5.1) 3.6 mmol/L (3.5-5.1) Chloride Level 103 mmol/L (98-107) 103 mmol/L (98-107) Carbon Dioxide Level 39 mmol/L (21-32) 36 mmol/L (21-32) Anion Gap 3 (6-14) 4 (6-14) Blood Urea Nitrogen 36 mg/dL (8-26) 38 mg/dL (8-26) Creatinine 2.2 mg/dL (0.7-1.3) 2.1 mg/dL (0.7-1.3) Estimated GFR (Cockcroft-Gault) 29.9 31.6 BUN/Creatinine Ratio 16 (6-20) 18 (6-20) Glucose Level 95 mg/dL (70-99) 132 mg/dL (70-99) Lactic Acid Level 0.9 mmol/L (0.4-2.0) Calcium Level 9.0 mg/dL (8.5-10.1) 8.4 mg/dL (8.5-10.1) Magnesium Level 1.9 mg/dL (1.8-2.4) Total Bilirubin 0.5 mg/dL (0.2-1.0) 0.5 mg/dL (0.2-1.0) Aspartate Amino Transf (AST/SGOT) 19 U/L (15-37) 20 U/L (15-37) Alanine Aminotransferase (ALT/SGPT) 6 U/L (16-63) 8 U/L (16-63) Alkaline Phosphatase 55 U/L (46-116) 54 U/L (46-116) Ammonia 18 mcmol/L (11-34) 12 mcmol/L (11-34) Troponin I Quantitative < 0.017 ng/mL (0.000-0.055) Total Protein 6.3 g/dL (6.4-8.2) 5.6 g/dL (6.4-8.2) Albumin 2.2 g/dL (3.4-5.0) 1.9 g/dL (3.4-5.0) Albumin/Globulin Ratio 0.5 (1.0-1.7) 0.5 (1.0-1.7) Procalcitonin 0.26 ng/mL (0.00-0.10) Thyroid Stimulating Hormone (TSH) 1.274 uIU/mL (0.358-3.74) Glucose (Fingerstick) 125 mg/dL (70-99) 134 mg/dL (70-99) Prothrombin Time 17.9 SEC (11.7-14.0) Prothromb Time International Ratio 1.5 (0.8-1.1) Activated Partial Thromboplast Time 41 SEC (24-38) Test 02/22/20 06:20 02/22/20 08:00 White Blood Count 6.9 x10^3/uL (4.0-11.0) Red Blood Count 3.13 x10^6/uL (4.30-5.70) Hemoglobin 7.9 g/dL (13.0-17.5) Hematocrit 25.2 % (39.0-53.0) Mean Corpuscular Volume 81 fL (79-100) Mean Corpuscular Hemoglobin 25 pg (25-35) Mean Corpuscular Hemoglobin Concent 31 g/dL (31-37) Red Cell Distribution Width 17.6 % (11.5-14.5) Platelet Count 267 x10^3/uL (140-400) Neutrophils (%) (Auto) 77 % (31-73) Lymphocytes (%) (Auto) 12 % (24-48) Monocytes (%) (Auto) 8 % (0-9) Eosinophils (%) (Auto) 2 % (0-3) Basophils (%) (Auto) 2 % (0-3) Neutrophils # (Auto) 5.3 x10^3/uL (1.8-7.7) Lymphocytes # (Auto) 0.8 x10^3/uL (1.0-4.8) Monocytes # (Auto) 0.5 x10^3/uL (0.0-1.1) Eosinophils # (Auto) 0.1 x10^3/uL (0.0-0.7) Basophils # (Auto) 0.1 x10^3/uL (0.0-0.2) O2 Saturation 96 % (92-99) Arterial Blood pH 7.54 (7.35-7.45) Arterial Blood pCO2 at Patient Temp 39 mmHg (35-46) Arterial Blood pO2 at Patient Temp 78 mmHg (65-108) Arterial Blood HCO3 32 mmol/L (21-28) Arterial Blood Base Excess 9 mmol/L (-3-3) FiO2 70/vent Physical Exam HEENT: Neck Supple W Full Motion Chest: Symmetric LUNGS: Other (mechanical ventilation ) Heart: RRR (SR,SB) Abdomen: Other (obese ) Extremities: Other (1+ bilateral LE edema. Chronic bilateral LE venous stasis dermatitis) Neurology: other (sedated ) Assessment Assessment 1. Acute respiratory failure with AE COPD, a/c CHF, and possible PNA. s/p intubation 2. Acute on chronic diastolic CHF; Echo 03/13 with preserved LV systolic function 3. PAFIB; Was in AFIB with controlled rate per EKG at [facility]. Presently SR 4. Chronic anemia, recent GIB, PUD (11/12). OAC discontinued at that time. [place] med list including Eliquis 5mg PO BID (recently resumed). Hgb 7.9 5. Hx DVT/PE. S/p IVC filter 6. Hypertension: controlled 7. Hyperlipidemia 8. CKD 9. Morbid obesity 10. PUI; rapid COVID negative 02/20 11. AMS, elevated ammonia level Recommendations Diuresis with close monitoring of renal function BB for rate control Hold Eliquis with anemia Poor candidate for long-term OAC given h/o anemia, PUD, GIB. Plan for LAAO on an outpatient basis Echo if COVID PCR negative to ensure intact LV systolic function Lung optimization, vent management as per pulm Supportive care Justicifation of Admission Dx: Justifications for Admission: Justification of Admission Dx: Yes FAIZAN WEINER MD 02/22/20 1621: CARDIO Progress Notes Assessment Assessment Agree with CASING FLUSHER's assessment and plan. Acute respiratory failure secondary to combination of acute COPD exacerbation, acute on chronic diastolic heart failure and possible pneumonia. Covid test pending. Continue diuresis with close monitoring of creatinine. We will check 2D echo if Covid negative. PAF, maintaining sinus rhythm. He is a poor candidate for long-term anticoagulation. Plan outpatient referral for LAAO. Continue vent management per pulmonary team. DINO SAHA APRN Feb 22, 2020 09:22 FAIZAN WEINER MD Feb 22, 2020 16:21
--- NOTE | 2020-02-22 09:26 | PDOC ---
DATE OF SERVICE DATE: 02/22/20 TIME: 09:19 SUBJECTIVE ROS Stable, remains intubated OBJECTIVE Vital Signs Vital Signs Date Time Temp Pulse Resp B/P (MAP) Pulse Ox O2 Delivery O2 Flow Rate FiO2 02/22/20 09:04 98.3 61 28 108/50 (69) 100 Ventilator 98.3 I & 0 Intake and Output 02/22/20 07:00 Intake Total 2681 ml Output Total 1425 ml Balance 1256 ml Intake IV Total 1824 ml Tube Feeding 557 ml Other 300 ml Output Urine Total 1425 ml PHYSICAL EXAM Physical Exam GENERAL: intubated HEENT: Intubated NECK Supple LUNGS: Clear to auscultation ant HEART: S1, S2. ABDOMEN: Obese,soft EXTREMITIES: bilateral lower extremity edema and erythema +, chronic SKIN: No rash NEUROLOGIC: sedated, intubated [place] + DIAGNOSIS/ASSESSMENT Assessment & Plan CKD stage 3/ 4 - Cr 2.63 with eGFR 24 in May 2017, used to follow with Dr. Julio. Recently labs at [facility]- Cr 2.1 -2.2 , UA unremarkable, Supportive care, strict I/O, monitor , avoid PICC due to ckd stage 3/ 4 UOP adequate, E-Lytes stable , Rt Kidney reported normal on Abd US Hx of NATASHA on CKD- Non Oliguric , recent hospitalization in Oct 2019 2/2 GI bleed , Cr improved to baseline prior to dc . Hx of NATASHA and Hyperkalemia in 2018 . Past vazquez no significant proteinuria Acute respiratory failure with AE COPD, a/c CHF, and possible PNA, intubated . Cxr Central vascular congestion and interstitial edema persists. Pleural effusion- Small to moderate right and probable small left pleural effusion noted. Acute Anemia in Oct 2019 - s/p EGD with PUD s/p PRBC , FFP's in Oct 2019 Liver contour is normal. Hepatopedal flow noted within the portal vein. Incr eased echogenicity of liver. Gallbladder is mildly distended. Numerous gallstones are noted. There is a small amount of pericholecystic fluid. No gallbladder wall thickening. Common bile duct is mildly dilated measuring 7 mm in diameter. Right kidney measures 12.8 cm in length. No hydronephrosis. Aorta and IVC are not well seen. Distended gallbladder, pericholecystic fluid and gallstones. Findings are equivocal for acute cholecystitis. Diffuse hepatic steatosis. DM II- per primary HTN-- stable Acute on chronic diastolic CHF; Echo 03/13 with preserved LV systolic function . S/p IV Bumex at [facility] PAFIB; Was in AFIB with controlled rate per EKG at [facility]. Presently SR Hx DVT/PE. S/p IVC filter Morbid obesity PUI; rapid COVID negative 02/20. AMS, elevated ammonia level Dw RN COMMENT/RELEVANT DATA Meds Current Medications Medications (Trade) Dose Ordered Sig/Dulce Start Time Stop Time Status Last Admin Dose Admin Apixaban (Eliquis) 5 mg BID 02/21/20 21:30 02/22/20 08:46 5 MG Bisacodyl (Dulcolax Supp) 10 mg PRN DAILY PRN 02/21/20 12:15 Famotidine (Pepcid Vial) 20 mg BID 02/21/20 13:00 02/21/20 12:53 DC Fenofibrate (Lofibra) 134 mg DAILY 02/22/20 09:00 02/22/20 08:46 134 MG Fentanyl Citrate 55 ml @ 0 mls/hr CONT PRN 02/21/20 11:00 02/21/20 11:45 1.98 MLS/HR Fentanyl Citrate (Fentanyl 2ml Vial) 50 mcg PRN Q1HR PRN 02/21/20 06:45 Furosemide (Lasix) 40 mg 1X ONCE 02/21/20 15:00 02/21/20 15:01 DC 02/21/20 16:24 40 MG Influenza Virus Vaccine Quadrival (Fluzone Quad Syringe) 0.5 ml ONCE ONCE 02/22/20 09:00 02/22/20 09:01 DC Info (Anti-Coagulation Monitoring By Pharmacy) 1 each PRN DAILY PRN 02/22/20 08:15 Info (FLU VACCINE SCREEN per RX) 1 each 1X ONCE 02/22/20 00:00 02/22/20 00:01 UNV Info (Icu Electrolyte Protocol) 1 ea DAILY 02/22/20 09:00 Linezolid/Dextrose 300 ml @ 300 mls/hr Q12HR 02/22/20 09:00 02/22/20 08:41 300 MLS/HR Meropenem 500 mg/ Sodium Chloride 50 ml @ 100 mls/hr Q8HRS 02/21/20 14:00 02/22/20 08:19 DC 02/22/20 05:38 100 MLS/HR Midazolam HCl 100 ml @ 0 mls/hr CONT PRN 02/21/20 06:45 02/22/20 00:56 10 MLS/HR Morphine Sulfate (Morphine Sulfate) 4 mg PRN Q1HR PRN 02/21/20 06:45 Multivitamins (Thera M Plus) 1 tab DAILY 02/22/20 09:00 02/22/20 08:44 DC Multivitamins/ Minerals Therapeutic (Centrum Multivit-Mineral Liq) 5 ml DAILY 02/22/20 09:00 02/22/20 08:48 5 ML Ondansetron HCl (Zofran) 4 mg PRN Q6HRS PRN 02/21/20 12:15 Pantoprazole Sodium (PROTONIX VIAL for IV PUSH) 40 mg DAILY 02/22/20 09:00 02/22/20 08:38 40 MG Pantoprazole Sodium (Protonix) 40 mg DAILYAC 02/22/20 07:30 02/21/20 22:27 DC Piperacillin Sod/ Tazobactam Sod (Zosyn Per Pharmacy) 1 each PRN DAILY PRN 02/21/20 12:15 Piperacillin Sod/ Tazobactam Sod 3.375 gm/Sodium Chloride 50 ml @ 100 mls/hr Q6HRS 02/21/20 18:00 02/22/20 06:24 100 MLS/HR Propofol 100 ml @ 0 mls/hr CONT PRN 02/21/20 06:45 02/21/20 08:03 33.2 MLS/HR Propranolol HCl (Inderal) 40 mg BID 02/21/20 21:30 02/22/20 08:47 40 MG Simvastatin (Zocor) 40 mg QHS 02/21/20 21:00 02/21/20 22:12 40 MG Sodium Chloride (Normal Saline Flush) 3 ml QSHIFT PRN 02/21/20 12:15 Cancel Sucralfate (Carafate) 1 gm QID 02/21/20 21:30 02/21/20 22:23 DC Vitamin D (Vitamin D3) 1,000 unit DAILY 02/22/20 09:00 02/22/20 08:46 1,000 UNIT Lab Laboratory Tests Test 02/21/20 16:00 02/22/20 00:25 02/22/20 05:45 02/22/20 06:01 White Blood Count 7.2 x10^3/uL (4.0-11.0) Red Blood Count 3.32 x10^6/uL (4.30-5.70) Hemoglobin 8.4 g/dL (13.0-17.5) Hematocrit 27.2 % (39.0-53.0) Mean Corpuscular Volume 82 fL (79-100) Mean Corpuscular Hemoglobin 25 pg (25-35) Mean Corpuscular Hemoglobin Concent 31 g/dL (31-37) Red Cell Distribution Width 17.7 % (11.5-14.5) Platelet Count 312 x10^3/uL (140-400) Neutrophils (%) (Auto) 82 % (31-73) Lymphocytes (%) (Auto) 7 % (24-48) Monocytes (%) (Auto) 9 % (0-9) Eosinophils (%) (Auto) 1 % (0-3) Basophils (%) (Auto) 1 % (0-3) Neutrophils # (Auto) 5.9 x10^3/uL (1.8-7.7) Lymphocytes # (Auto) 0.5 x10^3/uL (1.0-4.8) Monocytes # (Auto) 0.6 x10^3/uL (0.0-1.1) Eosinophils # (Auto) 0.1 x10^3/uL (0.0-0.7) Basophils # (Auto) 0.1 x10^3/uL (0.0-0.2) Sodium Level 145 mmol/L (136-145) 143 mmol/L (136-145) Potassium Level 4.2 mmol/L (3.5-5.1) 3.6 mmol/L (3.5-5.1) Chloride Level 103 mmol/L (98-107) 103 mmol/L (98-107) Carbon Dioxide Level 39 mmol/L (21-32) 36 mmol/L (21-32) Anion Gap 3 (6-14) 4 (6-14) Blood Urea Nitrogen 36 mg/dL (8-26) 38 mg/dL (8-26) Creatinine 2.2 mg/dL (0.7-1.3) 2.1 mg/dL (0.7-1.3) Estimated GFR (Cockcroft-Gault) 29.9 31.6 BUN/Creatinine Ratio 16 (6-20) 18 (6-20) Glucose Level 95 mg/dL (70-99) 132 mg/dL (70-99) Lactic Acid Level 0.9 mmol/L (0.4-2.0) Calcium Level 9.0 mg/dL (8.5-10.1) 8.4 mg/dL (8.5-10.1) Magnesium Level 1.9 mg/dL (1.8-2.4) Total Bilirubin 0.5 mg/dL (0.2-1.0) 0.5 mg/dL (0.2-1.0) Aspartate Amino Transf (AST/SGOT) 19 U/L (15-37) 20 U/L (15-37) Alanine Aminotransferase (ALT/SGPT) 6 U/L (16-63) 8 U/L (16-63) Alkaline Phosphatase 55 U/L (46-116) 54 U/L (46-116) Ammonia 18 mcmol/L (11-34) 12 mcmol/L (11-34) Troponin I Quantitative < 0.017 ng/mL (0.000-0.055) Total Protein 6.3 g/dL (6.4-8.2) 5.6 g/dL (6.4-8.2) Albumin 2.2 g/dL (3.4-5.0) 1.9 g/dL (3.4-5.0) Albumin/Globulin Ratio 0.5 (1.0-1.7) 0.5 (1.0-1.7) Procalcitonin 0.26 ng/mL (0.00-0.10) Thyroid Stimulating Hormone (TSH) 1.274 uIU/mL (0.358-3.74) Glucose (Fingerstick) 125 mg/dL (70-99) 134 mg/dL (70-99) Prothrombin Time 17.9 SEC (11.7-14.0) Prothromb Time International Ratio 1.5 (0.8-1.1) Activated Partial Thromboplast Time 41 SEC (24-38) Test 02/22/20 06:20 02/22/20 08:00 White Blood Count 6.9 x10^3/uL (4.0-11.0) Red Blood Count 3.13 x10^6/uL (4.30-5.70) Hemoglobin 7.9 g/dL (13.0-17.5) Hematocrit 25.2 % (39.0-53.0) Mean Corpuscular Volume 81 fL (79-100) Mean Corpuscular Hemoglobin 25 pg (25-35) Mean Corpuscular Hemoglobin Concent 31 g/dL (31-37) Red Cell Distribution Width 17.6 % (11.5-14.5) Platelet Count 267 x10^3/uL (140-400) Neutrophils (%) (Auto) 77 % (31-73) Lymphocytes (%) (Auto) 12 % (24-48) Monocytes (%) (Auto) 8 % (0-9) Eosinophils (%) (Auto) 2 % (0-3) Basophils (%) (Auto) 2 % (0-3) Neutrophils # (Auto) 5.3 x10^3/uL (1.8-7.7) Lymphocytes # (Auto) 0.8 x10^3/uL (1.0-4.8) Monocytes # (Auto) 0.5 x10^3/uL (0.0-1.1) Eosinophils # (Auto) 0.1 x10^3/uL (0.0-0.7) Basophils # (Auto) 0.1 x10^3/uL (0.0-0.2) O2 Saturation 96 % (92-99) Arterial Blood pH 7.54 (7.35-7.45) Arterial Blood pCO2 at Patient Temp 39 mmHg (35-46) Arterial Blood pO2 at Patient Temp 78 mmHg (65-108) Arterial Blood HCO3 32 mmol/L (21-28) Arterial Blood Base Excess 9 mmol/L (-3-3) FiO2 70/vent Results All relevant outside records, renal labs, imaging studies, telemetry/EKG's were reviewed. Single view of the chest. 02/21/2020 2:54 PM Indication: Reason: Central line placement / Spl. Instructions: / History: Comparison: Chest radiograph earlier today Findings: There is a right internal jugular central line with tip at the cavoatrial junction. Endotracheal tube and enteric tube appear stable. Small to moderate pleural effusion [id number] right pleural effusion and probable small left pleural effusion noted. Central vascular congestion and interstitial edema persists. No pneumothorax is identified. No osseous changes noted in the interim. IMPRESSION: 1.New right internal jugular central line with tip at the cavoatrial junction 2. Otherwise stable chest radiograph Justicifation of Admission Dx: Justifications for Admission: Justification of Admission Dx: Yes MULUGETA PEREZ MD Feb 22, 2020 09:26
--- NOTE | 2020-02-22 11:16 | CONS ---
DATE OF CONSULTATION: 02/22/2020 REFERRING PHYSICIAN: Dr. Sawyer. REASON FOR CONSULTATION: Sepsis, antibiotic management. HISTORY OF PRESENT ILLNESS: A 69-year-old male transferred from [place] to [facility], currently intubated in ICU. History obtained from chart and medical staff. The patient was found to have altered mental status at [facility], became unresponsive and was taken to [facility] for evaluation and treatment and was found to have respiratory failure requiring intubation. Chest x-ray showed congestion, possible infiltrate. BNP was around 5500. Temperature was 100.8. Creatinine was 2.1. D-dimer was 1.82. The patient was transferred to [facility] for further evaluation and treatment. The patient was started on Zosyn and meropenem. ID consultation has been requested for antibiotic management. PAST MEDICAL HISTORY: AFib, hypertension, hyperlipidemia, history of PE, COPD, GERD, history of GI bleed, osteoarthritis, chronic venous stasis changes, chronic renal insufficiency, diabetes. PAST SURGICAL HISTORY: Left fourth toe amputation, IVC filter. FAMILY HISTORY: Noncontributory. SOCIAL HISTORY: Quit smoking; history of heavy ETOH use, quit; currently at rehab. CURRENT MEDICATIONS: Zosyn, meropenem, bisacodyl, Zofran, fentanyl, midazolam, morphine. ALLERGIES: MILK CONTAINING PRODUCTS, CHLORDIAZEPOXIDE, INSULIN GLARGINE. REVIEW OF SYSTEMS: Unable to obtain. PHYSICAL EXAMINATION: VITAL SIGNS: Temperature 98.4, T-max 100.8, pulse 58, respiratory rate 28, blood pressure 118/84, oxygen saturation 100% on ventilator. GENERAL: Intubated, sedated male in COVID isolation. HEENT: Normocephalic, atraumatic, anicteric. LUNGS: Clear anteriorly. HEART: S1, S2. ABDOMEN: Obese. Bowel sounds present, nondistended. GENITOURINARY: Scrotal swelling. [place] in place. EXTREMITIES: Bilateral venous stasis changes present. Wounds present over both lower extremities, hyperkeratotic skin, no cyanosis, no clubbing. DERMATOLOGIC: Warm, dry. No generalized rash except for above. Right internal jugular vein in place. LABORATORY DATA: WBC 6.9, hemoglobin 7.9, hematocrit 25.2, platelets 267. Sodium 143, potassium 3.6, chloride 103, bicarbonate 36, BUN 38, creatinine 2.8, glucose 132, alkaline phosphatase 54. AST, ALT normal. Ammonia 12, albumin 1.9. SARS COVID rapid negative. IMAGING: Chest x-ray shows right internal jugular vein. Endotracheal tube and enteric tube is stable, small to moderate right pleural effusion. Central venous congestion, interstitial edema present. No pneumothorax. Abdominal ultrasound done for elevated ammonia, distended gallbladder with pericholecystic fluid and gallstones. Findings are equivocal for acute cholecystitis, diffuse hepatic steatosis, no right-sided hydronephrosis. IMPRESSION: 1. Fever. 2. Acute hypoxic respiratory failure, status post intubation. 3. Altered mental status. CT head negative for acute changes. 4. Chronic kidney disease. 5. Elevated ammonia , cholelithiasis with distended gb on ct abdomen. 6. History of atrial fibrillation. 7. History of pulmonary embolism and deep venous thrombosis, status post IVC filter. 8. Rapid COVID negative, 02/20. 9. Diabetes mellitus 2. 10. Chronic venous stasis dermatitis, bilateral lower extremities with mild superimposed bilateral lower extremity cellulitis. 11. Congestive heart failure. 12. custodial resident. 13. Elevated D-dimer. 14. Anemia. RECOMMENDATIONS: 1. Discontinue meropenem as the patient does not need 2-beta lactams 2. Continue Zosyn. 3. Add Zyvox and micafungin. 4. Follow up labs and cultures. 5. Continue local wound care. 6. Continue supportive care. 7. GI, Pulmonary, Neurology and Renal team consulted Thank you for allowing me to participate in this patient's care. If you have any questions, do not hesitate to contact me. ARTURO BURRIS MD DR: YARIEL/mariusz JOB#: [id number] / [id number] FIFI
--- NOTE | 2020-02-22 11:26 | PDOC ---
Date of Service: DATE: 02/22/20 TIME: 11:25 Objective: Objective: D/w nurse - no GI concerns, tolerating tube feeds. Tmax 100.8. Vital Signs: Vital Signs Date Time Temp Pulse Resp B/P (MAP) Pulse Ox O2 Delivery O2 Flow Rate FiO2 02/22/20 11:13 57 28 124/56 (78) 100 Ventilator 02/22/20 09:04 98.3 98.3 Labs: Laboratory Tests Test 02/21/20 16:00 02/22/20 00:25 02/22/20 05:45 02/22/20 06:01 White Blood Count 7.2 x10^3/uL Red Blood Count 3.32 x10^6/uL Hemoglobin 8.4 g/dL Hematocrit 27.2 % Mean Corpuscular Volume 82 fL Mean Corpuscular Hemoglobin 25 pg Mean Corpuscular Hemoglobin Concent 31 g/dL Red Cell Distribution Width 17.7 % Platelet Count 312 x10^3/uL Neutrophils (%) (Auto) 82 % Lymphocytes (%) (Auto) 7 % Monocytes (%) (Auto) 9 % Eosinophils (%) (Auto) 1 % Basophils (%) (Auto) 1 % Neutrophils # (Auto) 5.9 x10^3/uL Lymphocytes # (Auto) 0.5 x10^3/uL Monocytes # (Auto) 0.6 x10^3/uL Eosinophils # (Auto) 0.1 x10^3/uL Basophils # (Auto) 0.1 x10^3/uL Sodium Level 145 mmol/L 143 mmol/L Potassium Level 4.2 mmol/L 3.6 mmol/L Chloride Level 103 mmol/L 103 mmol/L Carbon Dioxide Level 39 mmol/L 36 mmol/L Anion Gap 3 4 Blood Urea Nitrogen 36 mg/dL 38 mg/dL Creatinine 2.2 mg/dL 2.1 mg/dL Estimated GFR (Cockcroft-Gault) 29.9 31.6 BUN/Creatinine Ratio 16 18 Glucose Level 95 mg/dL 132 mg/dL Lactic Acid Level 0.9 mmol/L Calcium Level 9.0 mg/dL 8.4 mg/dL Magnesium Level 1.9 mg/dL Total Bilirubin 0.5 mg/dL 0.5 mg/dL Aspartate Amino Transf (AST/SGOT) 19 U/L 20 U/L Alanine Aminotransferase (ALT/SGPT) 6 U/L 8 U/L Alkaline Phosphatase 55 U/L 54 U/L Ammonia 18 mcmol/L 12 mcmol/L Troponin I Quantitative < 0.017 ng/mL Total Protein 6.3 g/dL 5.6 g/dL Albumin 2.2 g/dL 1.9 g/dL Albumin/Globulin Ratio 0.5 0.5 Procalcitonin 0.26 ng/mL Thyroid Stimulating Hormone (TSH) 1.274 uIU/mL Glucose (Fingerstick) 125 mg/dL 134 mg/dL Prothrombin Time 17.9 SEC Prothromb Time International Ratio 1.5 Activated Partial Thromboplast Time 41 SEC Test 02/22/20 06:20 02/22/20 08:00 White Blood Count 6.9 x10^3/uL Red Blood Count 3.13 x10^6/uL Hemoglobin 7.9 g/dL Hematocrit 25.2 % Mean Corpuscular Volume 81 fL Mean Corpuscular Hemoglobin 25 pg Mean Corpuscular Hemoglobin Concent 31 g/dL Red Cell Distribution Width 17.6 % Platelet Count 267 x10^3/uL Neutrophils (%) (Auto) 77 % Lymphocytes (%) (Auto) 12 % Monocytes (%) (Auto) 8 % Eosinophils (%) (Auto) 2 % Basophils (%) (Auto) 2 % Neutrophils # (Auto) 5.3 x10^3/uL Lymphocytes # (Auto) 0.8 x10^3/uL Monocytes # (Auto) 0.5 x10^3/uL Eosinophils # (Auto) 0.1 x10^3/uL Basophils # (Auto) 0.1 x10^3/uL O2 Saturation 96 % Arterial Blood pH 7.54 Arterial Blood pCO2 at Patient Temp 39 mmHg Arterial Blood pO2 at Patient Temp 78 mmHg Arterial Blood HCO3 32 mmol/L Arterial Blood Base Excess 9 mmol/L FiO2 70/vent Imaging: RUQ US 02/20 FINDINGS: Liver contour is normal. Hepatopedal flow noted within the portal vein. Increased echogenicity of liver. Gallbladder is mildly distended. Numerous gallstones are noted. There is a small amount of pericholecystic fluid. No gallbladder wall thickening. Common bile duct is mildly dilated measuring 7 mm in diameter. Right kidney measures 12.8 cm in length. No hydronephrosis. Aorta and IVC are not well seen. IMPRESSION: 1. Distended gallbladder, pericholecystic fluid and gallstones. Findings are equivocal for acute cholecystitis. 2. Diffuse hepatic steatosis. 3. No right-sided hydronephrosis. CXR 02/20 IMPRESSION: 1.New right internal jugular central line with tip at the cavoatrial junction 2. Otherwise stable chest radiograph Echo 02/21 pending PE: GEN: NAD in COVID isolation, having echocardiogram LUNGS: vent HEART: RR ABD: round, soft EXTREM: chronic venous stasis NEURO/PSYCH: sedated A/P: Encephalopathy, resp failure, fever Chronic TAN (stable), CKD, mildly elevated ammonia (resolved) H/o PUD - no reports of GI bleeding recently Cholelihtiasis w/ distended GB and pericholecystic fluid - CBD 7mm, LFTs remain normal Hepatic steatosis Rapid COVID negative 02/20 -- Still no concern for bleeding, continue IV PPI. Will review US findings w/ Dr. Ramsey. Justicifation of Admission Dx: Justifications for Admission: Justification of Admission Dx: Yes ANCA ROSENBAUM Feb 22, 2020 11:26
--- NOTE | 2020-02-22 11:27 | PDOC ---
Infectious Disease Note Vital Signs: Vital Signs Vital Signs Date Time Temp Pulse Resp B/P (MAP) Pulse Ox O2 Delivery O2 Flow Rate FiO2 02/22/20 11:13 57 28 124/56 (78) 100 Ventilator 02/22/20 09:04 98.3 98.3 Medications: Inpatient Meds: Current Medications Medications (Trade) Dose Ordered Sig/Dulce Start Time Stop Time Status Last Admin Dose Admin Apixaban (Eliquis) 5 mg BID 02/21/20 21:30 02/22/20 09:28 DC 02/22/20 08:46 5 MG Bisacodyl (Dulcolax Supp) 10 mg PRN DAILY PRN 02/21/20 12:15 Famotidine (Pepcid Vial) 20 mg BID 02/21/20 13:00 02/21/20 12:53 DC Fenofibrate (Lofibra) 134 mg DAILY 02/22/20 09:00 02/22/20 08:46 134 MG Fentanyl Citrate 55 ml @ 0 mls/hr CONT PRN 02/21/20 11:00 02/21/20 11:45 1.98 MLS/HR Fentanyl Citrate (Fentanyl 2ml Vial) 50 mcg PRN Q1HR PRN 02/21/20 06:45 Furosemide (Lasix) 40 mg DAILY 02/22/20 10:00 Influenza Virus Vaccine Quadrival (Fluzone Quad Syringe) 0.5 ml ONCE ONCE 02/22/20 09:00 02/22/20 09:01 DC Info (Anti-Coagulation Monitoring By Pharmacy) 1 each PRN DAILY PRN 02/22/20 08:15 Info (FLU VACCINE SCREEN per RX) 1 each 1X ONCE 02/22/20 00:00 02/22/20 00:01 UNV Info (Icu Electrolyte Protocol) 1 ea DAILY 02/22/20 09:00 Linezolid/Dextrose 300 ml @ 300 mls/hr Q12HR 02/22/20 11:30 02/22/20 11:20 DC Meropenem 500 mg/ Sodium Chloride 50 ml @ 100 mls/hr Q8HRS 02/21/20 14:00 02/22/20 08:19 DC 02/22/20 05:38 100 MLS/HR Micafungin Sodium 100 mg/Dextrose 100 ml @ 100 mls/hr Q24H 02/22/20 12:00 Midazolam HCl 100 ml @ 0 mls/hr CONT PRN 02/21/20 06:45 02/22/20 09:16 10 MLS/HR Morphine Sulfate (Morphine Sulfate) 4 mg PRN Q1HR PRN 02/21/20 06:45 Multivitamins (Thera M Plus) 1 tab DAILY 02/22/20 09:00 02/22/20 08:44 DC Multivitamins/ Minerals Therapeutic (Centrum Multivit-Mineral Liq) 5 ml DAILY 02/22/20 09:00 02/22/20 08:48 5 ML Ondansetron HCl (Zofran) 4 mg PRN Q6HRS PRN 02/21/20 12:15 Pantoprazole Sodium (PROTONIX VIAL for IV PUSH) 40 mg DAILY 02/22/20 09:00 02/22/20 08:38 40 MG Pantoprazole Sodium (Protonix) 40 mg DAILYAC 02/22/20 07:30 02/21/20 22:27 DC Piperacillin Sod/ Tazobactam Sod (Zosyn Per Pharmacy) 1 each PRN DAILY PRN 02/21/20 12:15 Piperacillin Sod/ Tazobactam Sod 3.375 gm/Sodium Chloride 50 ml @ 100 mls/hr Q6HRS 02/21/20 18:00 02/22/20 06:24 100 MLS/HR Propofol 100 ml @ 0 mls/hr CONT PRN 02/21/20 06:45 02/21/20 08:03 33.2 MLS/HR Propranolol HCl (Inderal) 40 mg BID 02/21/20 21:30 02/22/20 08:47 40 MG Simvastatin (Zocor) 40 mg QHS 02/21/20 21:00 02/21/20 22:12 40 MG Sodium Chloride (Normal Saline Flush) 3 ml QSHIFT PRN 02/21/20 12:15 Cancel Sucralfate (Carafate) 1 gm QID 02/21/20 21:30 02/21/20 22:23 DC Vitamin D (Vitamin D3) 1,000 unit DAILY 02/22/20 09:00 02/22/20 08:46 1,000 UNIT Labs: Lab Laboratory Tests Test 02/21/20 16:00 02/22/20 00:25 02/22/20 05:45 02/22/20 06:01 White Blood Count 7.2 x10^3/uL (4.0-11.0) Red Blood Count 3.32 x10^6/uL (4.30-5.70) Hemoglobin 8.4 g/dL (13.0-17.5) Hematocrit 27.2 % (39.0-53.0) Mean Corpuscular Volume 82 fL (79-100) Mean Corpuscular Hemoglobin 25 pg (25-35) Mean Corpuscular Hemoglobin Concent 31 g/dL (31-37) Red Cell Distribution Width 17.7 % (11.5-14.5) Platelet Count 312 x10^3/uL (140-400) Neutrophils (%) (Auto) 82 % (31-73) Lymphocytes (%) (Auto) 7 % (24-48) Monocytes (%) (Auto) 9 % (0-9) Eosinophils (%) (Auto) 1 % (0-3) Basophils (%) (Auto) 1 % (0-3) Neutrophils # (Auto) 5.9 x10^3/uL (1.8-7.7) Lymphocytes # (Auto) 0.5 x10^3/uL (1.0-4.8) Monocytes # (Auto) 0.6 x10^3/uL (0.0-1.1) Eosinophils # (Auto) 0.1 x10^3/uL (0.0-0.7) Basophils # (Auto) 0.1 x10^3/uL (0.0-0.2) Sodium Level 145 mmol/L (136-145) 143 mmol/L (136-145) Potassium Level 4.2 mmol/L (3.5-5.1) 3.6 mmol/L (3.5-5.1) Chloride Level 103 mmol/L (98-107) 103 mmol/L (98-107) Carbon Dioxide Level 39 mmol/L (21-32) 36 mmol/L (21-32) Anion Gap 3 (6-14) 4 (6-14) Blood Urea Nitrogen 36 mg/dL (8-26) 38 mg/dL (8-26) Creatinine 2.2 mg/dL (0.7-1.3) 2.1 mg/dL (0.7-1.3) Estimated GFR (Cockcroft-Gault) 29.9 31.6 BUN/Creatinine Ratio 16 (6-20) 18 (6-20) Glucose Level 95 mg/dL (70-99) 132 mg/dL (70-99) Lactic Acid Level 0.9 mmol/L (0.4-2.0) Calcium Level 9.0 mg/dL (8.5-10.1) 8.4 mg/dL (8.5-10.1) Magnesium Level 1.9 mg/dL (1.8-2.4) Total Bilirubin 0.5 mg/dL (0.2-1.0) 0.5 mg/dL (0.2-1.0) Aspartate Amino Transf (AST/SGOT) 19 U/L (15-37) 20 U/L (15-37) Alanine Aminotransferase (ALT/SGPT) 6 U/L (16-63) 8 U/L (16-63) Alkaline Phosphatase 55 U/L (46-116) 54 U/L (46-116) Ammonia 18 mcmol/L (11-34) 12 mcmol/L (11-34) Troponin I Quantitative < 0.017 ng/mL (0.000-0.055) Total Protein 6.3 g/dL (6.4-8.2) 5.6 g/dL (6.4-8.2) Albumin 2.2 g/dL (3.4-5.0) 1.9 g/dL (3.4-5.0) Albumin/Globulin Ratio 0.5 (1.0-1.7) 0.5 (1.0-1.7) Procalcitonin 0.26 ng/mL (0.00-0.10) Thyroid Stimulating Hormone (TSH) 1.274 uIU/mL (0.358-3.74) Glucose (Fingerstick) 125 mg/dL (70-99) 134 mg/dL (70-99) Prothrombin Time 17.9 SEC (11.7-14.0) Prothromb Time International Ratio 1.5 (0.8-1.1) Activated Partial Thromboplast Time 41 SEC (24-38) Test 02/22/20 06:20 02/22/20 08:00 White Blood Count 6.9 x10^3/uL (4.0-11.0) Red Blood Count 3.13 x10^6/uL (4.30-5.70) Hemoglobin 7.9 g/dL (13.0-17.5) Hematocrit 25.2 % (39.0-53.0) Mean Corpuscular Volume 81 fL (79-100) Mean Corpuscular Hemoglobin 25 pg (25-35) Mean Corpuscular Hemoglobin Concent 31 g/dL (31-37) Red Cell Distribution Width 17.6 % (11.5-14.5) Platelet Count 267 x10^3/uL (140-400) Neutrophils (%) (Auto) 77 % (31-73) Lymphocytes (%) (Auto) 12 % (24-48) Monocytes (%) (Auto) 8 % (0-9) Eosinophils (%) (Auto) 2 % (0-3) Basophils (%) (Auto) 2 % (0-3) Neutrophils # (Auto) 5.3 x10^3/uL (1.8-7.7) Lymphocytes # (Auto) 0.8 x10^3/uL (1.0-4.8) Monocytes # (Auto) 0.5 x10^3/uL (0.0-1.1) Eosinophils # (Auto) 0.1 x10^3/uL (0.0-0.7) Basophils # (Auto) 0.1 x10^3/uL (0.0-0.2) O2 Saturation 96 % (92-99) Arterial Blood pH 7.54 (7.35-7.45) Arterial Blood pCO2 at Patient Temp 39 mmHg (35-46) Arterial Blood pO2 at Patient Temp 78 mmHg (65-108) Arterial Blood HCO3 32 mmol/L (21-28) Arterial Blood Base Excess 9 mmol/L (-3-3) FiO2 70/vent Objective: Assessment: Patient seen and examined ID consult dictated Impression Febrile illness Acute hypoxic respiratory failure status post intubation Encephalopathy likely metabolic NATASHA Diabetes mellitus Chronic venous stasis with bilateral chronic nonhealing lower extremity wounds with mild superimposed cellulitis Yeast in groin Plan: Plan of Care Continue Zosyn DC meropenem, does not need dual beta-lactam coverage Add Zyvox and micafungin Follow-up cultures from [facility] Monitor labs Discussed with RN Thank you for this consult ARTURO BURRIS MD Feb 22, 2020 11:27
[2020-02-22] MEDS: PROPOFOL 100 ML IV PRN ×2 (11:29→23:34)
[2020-02-22] MEDS: MICAFUNGIN 100 MG in IV DEXTROSE 5% 100ML 100 ML IV SCH (11:32)
[2020-02-22] MEDS: FUROSEMIDE 40 MG/4 ML VIAL. IVP SCH (11:33)
[2020-02-22] MEDS: fentaNYL HIGH DOSE PCA 55 ML IV PRN (12:59)
--- NOTE | 2020-02-22 13:30 | CARD ---
MR#: [id number] Date of Study: 02/22/2020 Ordering Physician: RHONDA CORREIA, Referring Physician: RHONDA CORREIA, Tech: Teresa Godinez APPROVED REPORT EXAM: Two-dimensional and M-mode echocardiogram with Doppler and color Doppler. Other Information Quality : FairHR: [id number] Technically limited study due to body habitus, vented patient INDICATION Congestive Heart Failure Elevated Troponin 2D DIMENSIONS Left Atrium(2D)4.1 (1.6-4.0cm)IVSd1.5 (0.7-1.1cm) Aortic Root(2D)3.8 (2.0-3.7cm)LVDd5.5 (3.9-5.9cm) LVOT Diameter2.0 (1.8-2.4cm)PWd1.4 (0.7-1.1cm) LVDs2.9 (2.5-4.0cm)FS (%) 47.2 % SV113.3 mlLVEF(%)78.1 (>50%) Aortic Valve AoV Peak [place].175.3cm/sAoV VTI43.3cm AO Peak GR.12.3mmHgLVOT VTI 31.38cm AO Mean GR.8mmHg Mitral Valve MV E Fefzahvb178.1cm/sMV DECEL [id number] MV A Ysnirwse61.8cm/sE/A Ratio1.1 TDI Lateral E' P. V8.89cm/sMedial E' P. V8.23cm/s E/Lateral E'11.3E/Medial E'12.2 Tricuspid Valve TR P. Hnvdvuix482hj/sRAP [id number] TR Peak Gr.77vvNjIBVM14sgNg Pulmonary Vein PVa [id number] LEFT VENTRICLE The left ventricle is normal size. There is mild to moderate concentric left ventricular hypertrophy. The left ventricular systolic function is normal. The Ejection Fraction is 55-60%. There is normal L V segmental wall motion. Transmitral Doppler flow pattern is Grade II-pseudonormal filling dynamics. RIGHT VENTRICLE The right ventricle is mildly dilated. There is normal right ventricular wall thickness. The right ve ntricular systolic function is normal. ATRIA The left atrium is mildly dilated. The right atrium is mildly dilated. The interatrial septum is inta ct with no evidence for an atrial septal defect or patent foramen ovale as noted on 2-D or Doppler im aging. AORTIC VALVE The aortic valve is calcified but opens well. Doppler and Color Flow revealed no significant aortic r egurgitation. There is no significant aortic valvular stenosis. Calculated aortic valve area is 2.23 cm2 with maximum pressure gradient of 15 mmHg and mean pressure gradient of 8 mmHg. MITRAL VALVE The mitral valve is normal in structure and function. There is no evidence of mitral valve prolapse. There is no mitral valve stenosis. TRICUSPID VALVE The tricuspid valve is not well visualized. Doppler and Color Flow revealed trace tricuspid regurgita tion with an estimated PAP of 50 mmHg. There is no tricuspid valve stenosis. PULMONIC VALVE The pulmonic valve is not well visualized. Doppler and Color Flow revealed no pulmonic valvular regur gitation. GREAT VESSELS The aortic root is normal in size. The IVC is dilated and collapses <50% with inspiration. PERICARDIAL EFFUSION There is no evidence of significant pericardial effusion. Critical Notification Critical Value: No <Conclusion> The left ventricular systolic function is normal. The Ejection Fraction is 55-60%. There is normal LV segmental wall motion. Transmitral Doppler flow pattern is Grade II-pseudonormal filling dynamics. Trace tricuspid regurgitation with an estimated PAP of 50 mmHg. There is no evidence of significant pericardial effusion. Signed by : Serge Seaman, Electronically Approved : 02/22/2020 13:30:08
--- NOTE | 2020-02-22 15:13 | NUR ---
SS following up with discharge planning. SS reviewed pt chart and discussed with pt RN. Pt is currently on the vent at 80%. COVID19 negative. Pt on IV Micafungin, IV Zyvox, and IV Zosyn. Not stable. SS will continue to follow for discharge planning.
--- NOTE | 2020-02-22 15:13 | NUR ---
Wound Care Wound Type/Assessment: Consult to eval and treat for cellulitic wounds to posterior calves. BLE from the knee down are deep red, edematous, taught, and scaly. Wounds cleansed and measured. Both legs with multiple open areas, measured as one wound per leg. Applied lotion from knees to toes. Small pustular area noted on L dorsal 2nd toe, unroofed during cleansing with a small amount of yellow purulent drainage, revealing a small ulcer underneath. Wound bed pink and sloughy, blunt wound edges. Pictured and measured. All toes noted to be red and edematous. Pt coccyx/sacrum intact, scrotum edematous roughly softball in size. No other open areas noted on head to toe assessment. Treatment Recommendations/Plan: Bilateral legs: Cleanse with mild soap and water on dressing change days. Dry completely. Apply lotion from knees to toes. Cover open wounds with xeroform, ABD, and kerlix. Change every other day. L 2nd toe: Cleanse and dry. [place] daily with betadine and leave [employer] Education provided: Pt intubated and under sedation. Offloading surface/device: ICU bariatric bed. Pillows to float heels. Wedge under R side. Recommended Referrals/Tests: NA Discharge Recommendations for dressings: As above. Follow up 03/01/20
[2020-02-22] MEDS ORDERED: PANTOPRAZOLE IV PUSH 40 MG VIAL. IVP SCH (16:30)
[2020-02-22] MEDS: SIMVASTATIN 40 MG TABLET. PO SCH (20:53)
--- NOTE | 2020-02-22 21:45 | NUR ---
Patient's daughter called, updated on condition and notified that Covid did come back negative. All questions answered and patient states she will plan to see patient in am.
[2020-02-23] VITALS (22 sets, daily range): BP systolic 79–105; BP diastolic 39–58
[2020-02-23] MEDS: PIPERACILLIN/TAZOBACTAM 3.375 GM in IV NORMAL SALINE 50ML 50 ML IV SCH ×4 (00:08→18:25)
[2020-02-23] MEDS: IV NORMAL SALINE 1000ML BAG 1,000 ML IV SCH ×3 (02:38→20:34)
[2020-02-23] MEDS: PROPOFOL 100 ML IV PRN ×3 (04:57→18:24)
[2020-02-23 06:49] LABS: HEMATOCRIT 24.8 % (39.0-53.0); HEMOGLOBIN 7.9 g/dL (13.0-17.5); RED BLOOD COUNT 3.13 x10^6/uL (4.30-5.70); RED CELL DISTRIBUTION WIDTH 17.5 % (11.5-14.5); WHITE BLOOD COUNT 6.8 x10^3/uL (4.0-11.0)
[2020-02-23 07:02] LABS: CALCIUM 8.4 mg/dL (8.5-10.1); CREATININE 2.4 mg/dL (0.7-1.3); GFR 27.1; MAGNESIUM 1.8 mg/dL (1.8-2.4); POTASSIUM 3.5 mmol/L (3.5-5.1)
--- NOTE | 2020-02-23 07:47 | PDOC ---
PROGRESS NOTES Date of Service: DATE: 02/23/20 TIME: 07:47 Chief Complaint Chief Complaint VTE Prophylaxis Ordered VTE Prophylaxis Devices: Yes VTE Pharmacological Prophylaxi: Yes Assessment/Plan Assessment/Plan impression 1. Acute hypoxic / severe hypercapnic respiratory failure, 2. Chronic obstructive pulmonary disease. 3. Type 2 diabetes mellitus with peripheral neuropathy. 4. Hypertension. 5. Hyperlipidemia. 6. atrial fibrillation 7. History of deep vein thrombosis and pulmonary emboli x 3 for which he was on Coumadin. has now an inferior vena cava filter. Placement of retrievable IVC filter 11/12 8. bilateral lower extremity //chronic venous stasis dermatitis 9. morbid obesity 10. PUI COVID 19 11. 4 mm non bleeding antral gastric ulcer and erosive gastritis (bx) 11/12 12. NATASHA 13, ISCHEMIC CVD CT HEAD 14. CODE STROKE IN ER 15. ACUTE METABOLIC ENCEPHALOPATHY 16, POSSIBLE ASPIRATION, PNEUMONIA, SHOCK 17. Distended gallbladder, pericholecystic fluid and gallstones. Findings are equivocal for acute cholecystitis. 18. Diffuse hepatic steatosis. plan icu bed pulm consult cardiology consult GI CONSULT NEPHROLOGY CONSULT Neurology consult ID CONSULT ECHO 35 MIN CC TIME History of Present Illness History of Present Illness Identification/Chief Complaint Chief Complaint RESP FAILURE, TRANSFER [facility] covid 19 rapid neg History of Present Illness History of Present Illness 69 yr old male, transfer from [facility] due to AMS, required vent support for respiratory failure BECAME HYPOXIC 0330, INTUBATED IN ER, WAS OBTUNDED, HAD ELEVATED D-DIMER BUN 32, CR 2.1 UDS NEG, PRO-BNP 5556 WAS CODE STROKE ON PRESENTATION DUE TO AMS [facility] , admitted by DR CASTANEDA HERE ON NOV 2019 D DIMER 1.82 BUT RENAL FX PROHIBITS CTA CHEST, DEFER TO PULM poor candidate for long-term anticoagulation. WAS outpatient referral for [facility] by cardiology Past Medical History Past Medical History PAST MEDICAL HISTORY: Positive for diabetes mellitus, hypertension, obesity, obstructive lung disease, hyperlipidemia, peripheral vascular disease, neuropathy, pulmonary embolism, venous stasis dermatitis. SOCIAL HISTORY: Negative for smoking, alcohol, or illicit drug use. ALLERGIES: LISTED ALLERGIC TO INSULIN AND CHLORDIAZEPOXIDE. CURRENT MEDICATIONS: Reviewed. Cardiovascular: AFIB, HTN, Hyperlipidemia Pulmonary: COPD, Pulmonary embolus GI: GERD Heme/Onc: No pertinent hx Hepatobiliary: No pertinent hx Psych: No pertinent hx Musculoskeletal: Osteoarthritis Rheumatologic: No pertinent hx Infectious disease: No pertinent hx Renal/: Chronic renal insuff Endocrine: Diabetes Past Surgical History Past Surgical History: Other Family History Family History: Diabetes, Hypertension Social History Smoke: <1 pack per day ALCOHOL: rare Drugs: None Current Medications Vitals Vitals Vital Signs Date Time Temp Pulse Resp B/P (MAP) Pulse Ox O2 Delivery O2 Flow Rate FiO2 02/23/20 07:00 58 28 102/51 (68) 94 Ventilator 02/23/20 04:00 94.4 94.4 Physical Exam General: Other (sedated ) Heart: Regular rate, Other (distant heart tones ) Lungs: Crackles (RLL) Abdomen: Other (obese ) Extremities: Other (1+ bilateral LE edema. Chronic bilateral LE venous stasis dermatitis ) Labs LABS Laboratory Tests Test 02/22/20 08:00 02/22/20 11:30 02/22/20 16:52 02/23/20 00:11 O2 Saturation 96 % (92-99) Arterial Blood pH 7.54 (7.35-7.45) Arterial Blood pCO2 at Patient Temp 39 mmHg (35-46) Arterial Blood pO2 at Patient Temp 78 mmHg (65-108) Arterial Blood HCO3 32 mmol/L (21-28) Arterial Blood Base Excess 9 mmol/L (-3-3) FiO2 70/vent Glucose (Fingerstick) 130 mg/dL (70-99) 147 mg/dL (70-99) 212 mg/dL (70-99) Test 02/23/20 06:30 White Blood Count 6.8 x10^3/uL (4.0-11.0) Red Blood Count 3.13 x10^6/uL (4.30-5.70) Hemoglobin 7.9 g/dL (13.0-17.5) Hematocrit 24.8 % (39.0-53.0) Mean Corpuscular Volume 79 fL (79-100) Mean Corpuscular Hemoglobin 25 pg (25-35) Mean Corpuscular Hemoglobin Concent 32 g/dL (31-37) Red Cell Distribution Width 17.5 % (11.5-14.5) Platelet Count 275 x10^3/uL (140-400) Sodium Level 143 mmol/L (136-145) Potassium Level 3.5 mmol/L (3.5-5.1) Chloride Level 104 mmol/L (98-107) Carbon Dioxide Level 34 mmol/L (21-32) Anion Gap 5 (6-14) Blood Urea Nitrogen 40 mg/dL (8-26) Creatinine 2.4 mg/dL (0.7-1.3) Estimated GFR (Cockcroft-Gault) 27.1 Glucose Level 211 mg/dL (70-99) Glucose (Fingerstick) 192 mg/dL (70-99) Calcium Level 8.4 mg/dL (8.5-10.1) Magnesium Level 1.8 mg/dL (1.8-2.4) Comment Review of Relevant I have reviewed the following items megan (where applicable) has been applied. Labs Laboratory Tests Test 02/21/20 07:50 02/21/20 16:00 02/22/20 00:25 02/22/20 05:45 O2 Saturation 97 % (92-99) Arterial Blood pH 7.31 (7.35-7.45) Arterial Blood pCO2 at Patient Temp 75 mmHg (35-46) Arterial Blood pO2 at Patient Temp 110 mmHg (65-108) Arterial Blood HCO3 37 mmol/L (21-28) Arterial Blood Base Excess 9 mmol/L (-3-3) FiO2 100%+8 White Blood Count 7.2 x10^3/uL (4.0-11.0) Red Blood Count 3.32 x10^6/uL (4.30-5.70) Hemoglobin 8.4 g/dL (13.0-17.5) Hematocrit 27.2 % (39.0-53.0) Mean Corpuscular Volume 82 fL (79-100) Mean Corpuscular Hemoglobin 25 pg (25-35) Mean Corpuscular Hemoglobin Concent 31 g/dL (31-37) Red Cell Distribution Width 17.7 % (11.5-14.5) Platelet Count 312 x10^3/uL (140-400) Neutrophils (%) (Auto) 82 % (31-73) Lymphocytes (%) (Auto) 7 % (24-48) Monocytes (%) (Auto) 9 % (0-9) Eosinophils (%) (Auto) 1 % (0-3) Basophils (%) (Auto) 1 % (0-3) Neutrophils # (Auto) 5.9 x10^3/uL (1.8-7.7) Lymphocytes # (Auto) 0.5 x10^3/uL (1.0-4.8) Monocytes # (Auto) 0.6 x10^3/uL (0.0-1.1) Eosinophils # (Auto) 0.1 x10^3/uL (0.0-0.7) Basophils # (Auto) 0.1 x10^3/uL (0.0-0.2) Sodium Level 145 mmol/L (136-145) 143 mmol/L (136-145) Potassium Level 4.2 mmol/L (3.5-5.1) 3.6 mmol/L (3.5-5.1) Chloride Level 103 mmol/L (98-107) 103 mmol/L (98-107) Carbon Dioxide Level 39 mmol/L (21-32) 36 mmol/L (21-32) Anion Gap 3 (6-14) 4 (6-14) Blood Urea Nitrogen 36 mg/dL (8-26) 38 mg/dL (8-26) Creatinine 2.2 mg/dL (0.7-1.3) 2.1 mg/dL (0.7-1.3) Estimated GFR (Cockcroft-Gault) 29.9 31.6 BUN/Creatinine Ratio 16 (6-20) 18 (6-20) Glucose Level 95 mg/dL (70-99) 132 mg/dL (70-99) Lactic Acid Level 0.9 mmol/L (0.4-2.0) Calcium Level 9.0 mg/dL (8.5-10.1) 8.4 mg/dL (8.5-10.1) Magnesium Level 1.9 mg/dL (1.8-2.4) Total Bilirubin 0.5 mg/dL (0.2-1.0) 0.5 mg/dL (0.2-1.0) Aspartate Amino Transf (AST/SGOT) 19 U/L (15-37) 20 U/L (15-37) Alanine Aminotransferase (ALT/SGPT) 6 U/L (16-63) 8 U/L (16-63) Alkaline Phosphatase 55 U/L (46-116) 54 U/L (46-116) Ammonia 18 mcmol/L (11-34) 12 mcmol/L (11-34) Troponin I Quantitative < 0.017 ng/mL (0.000-0.055) Total Protein 6.3 g/dL (6.4-8.2) 5.6 g/dL (6.4-8.2) Albumin 2.2 g/dL (3.4-5.0) 1.9 g/dL (3.4-5.0) Albumin/Globulin Ratio 0.5 (1.0-1.7) 0.5 (1.0-1.7) Procalcitonin 0.26 ng/mL (0.00-0.10) Thyroid Stimulating Hormone (TSH) 1.274 uIU/mL (0.358-3.74) Glucose (Fingerstick) 125 mg/dL (70-99) Prothrombin Time 17.9 SEC (11.7-14.0) Prothromb Time International Ratio 1.5 (0.8-1.1) Activated Partial Thromboplast Time 41 SEC (24-38) Test 02/22/20 06:01 02/22/20 06:20 02/22/20 08:00 02/22/20 11:30 Glucose (Fingerstick) 134 mg/dL (70-99) 130 mg/dL (70-99) White Blood Count 6.9 x10^3/uL (4.0-11.0) Red Blood Count 3.13 x10^6/uL (4.30-5.70) Hemoglobin 7.9 g/dL (13.0-17.5) Hematocrit 25.2 % (39.0-53.0) Mean Corpuscular Volume 81 fL (79-100) Mean Corpuscular Hemoglobin 25 pg (25-35) Mean Corpuscular Hemoglobin Concent 31 g/dL (31-37) Red Cell Distribution Width 17.6 % (11.5-14.5) Platelet Count 267 x10^3/uL (140-400) Neutrophils (%) (Auto) 77 % (31-73) Lymphocytes (%) (Auto) 12 % (24-48) Monocytes (%) (Auto) 8 % (0-9) Eosinophils (%) (Auto) 2 % (0-3) Basophils (%) (Auto) 2 % (0-3) Neutrophils # (Auto) 5.3 x10^3/uL (1.8-7.7) Lymphocytes # (Auto) 0.8 x10^3/uL (1.0-4.8) Monocytes # (Auto) 0.5 x10^3/uL (0.0-1.1) Eosinophils # (Auto) 0.1 x10^3/uL (0.0-0.7) Basophils # (Auto) 0.1 x10^3/uL (0.0-0.2) O2 Saturation 96 % (92-99) Arterial Blood pH 7.54 (7.35-7.45) Arterial Blood pCO2 at Patient Temp 39 mmHg (35-46) Arterial Blood pO2 at Patient Temp 78 mmHg (65-108) Arterial Blood HCO3 32 mmol/L (21-28) Arterial Blood Base Excess 9 mmol/L (-3-3) FiO2 70/vent Test 02/22/20 16:52 02/23/20 00:11 02/23/20 06:30 Glucose (Fingerstick) 147 mg/dL (70-99) 212 mg/dL (70-99) 192 mg/dL (70-99) White Blood Count 6.8 x10^3/uL (4.0-11.0) Red Blood Count 3.13 x10^6/uL (4.30-5.70) Hemoglobin 7.9 g/dL (13.0-17.5) Hematocrit 24.8 % (39.0-53.0) Mean Corpuscular Volume 79 fL (79-100) Mean Corpuscular Hemoglobin 25 pg (25-35) Mean Corpuscular Hemoglobin Concent 32 g/dL (31-37) Red Cell Distribution Width 17.5 % (11.5-14.5) Platelet Count 275 x10^3/uL (140-400) Sodium Level 143 mmol/L (136-145) Potassium Level 3.5 mmol/L (3.5-5.1) Chloride Level 104 mmol/L (98-107) Carbon Dioxide Level 34 mmol/L (21-32) Anion Gap 5 (6-14) Blood Urea Nitrogen 40 mg/dL (8-26) Creatinine 2.4 mg/dL (0.7-1.3) Estimated GFR (Cockcroft-Gault) 27.1 Glucose Level 211 mg/dL (70-99) Calcium Level 8.4 mg/dL (8.5-10.1) Magnesium Level 1.8 mg/dL (1.8-2.4) Laboratory Tests Test 02/22/20 08:00 02/22/20 11:30 02/22/20 16:52 02/23/20 00:11 O2 Saturation 96 % (92-99) Arterial Blood pH 7.54 (7.35-7.45) Arterial Blood pCO2 at Patient Temp 39 mmHg (35-46) Arterial Blood pO2 at Patient Temp 78 mmHg (65-108) Arterial Blood HCO3 32 mmol/L (21-28) Arterial Blood Base Excess 9 mmol/L (-3-3) FiO2 70/vent Glucose (Fingerstick) 130 mg/dL (70-99) 147 mg/dL (70-99) 212 mg/dL (70-99) Test 02/23/20 06:30 White Blood Count 6.8 x10^3/uL (4.0-11.0) Red Blood Count 3.13 x10^6/uL (4.30-5.70) Hemoglobin 7.9 g/dL (13.0-17.5) Hematocrit 24.8 % (39.0-53.0) Mean Corpuscular Volume 79 fL (79-100) Mean Corpuscular Hemoglobin 25 pg (25-35) Mean Corpuscular Hemoglobin Concent 32 g/dL (31-37) Red Cell Distribution Width 17.5 % (11.5-14.5) Platelet Count 275 x10^3/uL (140-400) Sodium Level 143 mmol/L (136-145) Potassium Level 3.5 mmol/L (3.5-5.1) Chloride Level 104 mmol/L (98-107) Carbon Dioxide Level 34 mmol/L (21-32) Anion Gap 5 (6-14) Blood Urea Nitrogen 40 mg/dL (8-26) Creatinine 2.4 mg/dL (0.7-1.3) Estimated GFR (Cockcroft-Gault) 27.1 Glucose Level 211 mg/dL (70-99) Glucose (Fingerstick) 192 mg/dL (70-99) Calcium Level 8.4 mg/dL (8.5-10.1) Magnesium Level 1.8 mg/dL (1.8-2.4) Microbiology 02/21/20 Blood Culture - Preliminary, Resulted NO GROWTH AFTER 1 DAY Medications Current Medications Sodium Chloride (Normal Saline Flush) 3 ml QSHIFT PRN IV AFTER MEDS AND BLOOD DRAWS; Start 02/21/20 at 06:45 Sodium Chloride 1,000 ml @ 100 mls/hr Q10H IV Last administered on 02/23/20at 02:38; Start 02/21/20 at 06:45 Fentanyl Citrate 30 ml @ 0 mls/hr CONT PRN IV SEE PROTOCOL Last administered on 02/21/20at 07:26; Start 02/21/20 at 06:45; Stop 02/21/20 at 10:59; Status DC Propofol 100 ml @ 0 mls/hr CONT PRN IV PER PROTOCOL Last administered on 02/23/20at 04:57; Start 02/21/20 at 06:45 Fentanyl Citrate (Fentanyl 2ml Vial) 25 mcg PRN Q1HR PRN IV SEE COMMENTS; Start 02/21/20 at 06:45 Fentanyl Citrate (Fentanyl 2ml Vial) 50 mcg PRN Q1HR PRN IV SEE COMMENTS; Start 02/21/20 at 06:45 Famotidine (Pepcid Vial) 20 mg BID IVP Last administered on 02/21/20at 10:23; Start 02/21/20 at 09:00; Stop 02/21/20 at 12:53; Status DC Morphine Sulfate (Morphine Sulfate) 2 mg PRN Q1HR PRN IV SEE COMMENTS.; Start 02/21/20 at 06:45; Stop 02/23/20 at 06:20; Status DC Morphine Sulfate (Morphine Sulfate) 4 mg PRN Q1HR PRN IV SEE COMMENTS.; Start 02/21/20 at 06:45; Stop 02/23/20 at 06:20; Status DC Midazolam HCl 100 ml @ 0 mls/hr CONT PRN IV SEE PROTOCOL Last administered on 02/22/20at 20:57; Start 02/21/20 at 06:45 Fentanyl Citrate 55 ml @ 0 mls/hr CONT PRN IV PAIN/SEDATION Last administered on 02/22/20at 12:59; Start 02/21/20 at 11:00 Ondansetron HCl (Zofran) 4 mg PRN Q6HRS PRN IVP NAUSEA/VOMITING; Start 02/21/20 at 12:15 Famotidine (Pepcid Vial) 20 mg BID IVP ; Start 02/21/20 at 13:00; Stop 02/21/20 at 12:53; Status DC Info (Icu Electrolyte Protocol) 1 ea DAILY MC ; Start 02/22/20 at 09:00 Sodium Chloride (Normal Saline Flush) 3 ml QSHIFT PRN IV AFTER MEDS AND BLOOD DRAWS; Start 02/21/20 at 12:15; Status Cancel Bisacodyl (Dulcolax Supp) 10 mg PRN DAILY PRN [place] CONSTIPATION; Start 02/21/20 at 12:15 Piperacillin Sod/ Tazobactam Sod (Zosyn Per Pharmacy) 1 each PRN DAILY PRN MC SEE COMMENTS; Start 02/21/20 at 12:15 Meropenem 500 mg/ Sodium Chloride 50 ml @ 100 mls/hr Q8HRS IV Last administered on 02/22/20at 05:38; Start 02/21/20 at 14:00; Stop 02/22/20 at 08:19; Status DC Pantoprazole Sodium (PROTONIX VIAL for IV PUSH) 40 mg DAILYAC IVP ; Start 02/22/20 at 16:30; Status Cancel Furosemide (Lasix) 40 mg 1X ONCE IVP Last administered on 02/21/20at 16:24; S tart 02/21/20 at 15:00; Stop 02/21/20 at 15:01; Status DC Piperacillin Sod/ Tazobactam Sod 3.375 gm/Sodium Chloride 50 ml @ 100 mls/hr Q6HRS IV Last administered on 02/23/20at 06:24; Start 02/21/20 at 18:00 Simvastatin (Zocor) 40 mg QHS PO Last administered on 02/22/20at 20:53; Start 02/21/20 at 21:00 Propranolol HCl (Inderal) 40 mg BID PO ; Start 02/21/20 at 21:00; Status Cancel Apixaban (Eliquis) 5 mg BID PO Last administered on 02/22/20at 08:46; Start 02/21/20 at 21:30; Stop 02/22/20 at 09:28; Status DC Pantoprazole Sodium (Protonix) 40 mg DAILYAC PO ; Start 02/22/20 at 07:30; Stop 02/21/20 at 22:27; Status DC Propranolol HCl (Inderal) 40 mg BID PO Last administered on 02/22/20at 21:03; Start 02/21/20 at 21:30 Sucralfate (Carafate) 1 gm QID PO ; Start 02/21/20 at 21:30; Stop 02/21/20 at 22:23; Status DC Vitamin D (Vitamin D3) 1,000 unit DAILY PO Last administered on 02/22/20at 08:46; Start 02/22/20 at 09:00 Fenofibrate (Lofibra) 134 mg DAILY PO Last administered on 02/22/20at 08:46; Start 02/22/20 at 09:00 Multivitamins (Thera M Plus) 1 tab DAILY PO ; Start 02/22/20 at 09:00; Stop 02/22/20 at 08:44; Status DC Pantoprazole Sodium (PROTONIX VIAL for IV PUSH) 40 mg DAILY IVP Last administered on 02/22/20at 08:38; Start 02/22/20 at 09:00 Info (FLU VACCINE SCREEN per RX) 1 each 1X ONCE MC ; Start 02/22/20 at 00:00; Stop 02/22/20 at 00:01; Status UNV Influenza Virus Vaccine Quadrival (Fluzone Quad [id number] Syringe) 0.5 ml ONCE ONCE VAX IM ; Start 02/22/20 at 09:00; Stop 02/22/20 at 09:01; Status DC Info (Anti-Coagulation Monitoring By Pharmacy) 1 each PRN DAILY PRN MC SEE COMMENTS; Start 02/22/20 at 08:15 Linezolid/Dextrose 300 ml @ 300 mls/hr Q12HR IV Last administered on 02/22/20at 20:53; Start 02/22/20 at 09:00 Multivitamins/ Minerals Therapeutic (Centrum Multivit-Mineral Liq) 5 ml DAILY PEG Last administered on 02/22/20at 08:48; Start 02/22/20 at 09:00 Furosemide (Lasix) 40 mg DAILY IVP Last administered on 02/22/20at 11:33; Start 02/22/20 at 10:00 Micafungin Sodium 100 mg/Dextrose 100 ml @ 100 mls/hr Q24H IV Last administered on 02/22/20at 11:32; Start 02/22/20 at 12:00 Linezolid/Dextrose 300 ml @ 300 mls/hr Q12HR IV ; Start 02/22/20 at 11:30; Stop 02/22/20 at 11:20; Status DC Active Scripts Active Carafate (Sucralfate) 1 Gm Tablet 1 Tab PO QID 30 Days Protonix (Pantoprazole Sodium) 40 Mg Tablet.dr 40 Mg PO DAILYAC 30 Days Miralax (Polyethylene Glycol 3350) 17 Gm Powd.pack 1 Packet PO DAILY 2 Days dissolve in water Reported D3-50 (Cholecalciferol (Vitamin D3)) 50,000 Unit Capsule 1,000 Unit PO DAILY Propranolol Hcl 40 Mg Tablet 40 Mg PO BID Furosemide 40 Mg Tablet 40 Mg PO BID Eliquis (Apixaban) 5 Mg Tablet 5 Mg PO BID Humalog (Insulin Lispro) 100 Unit/1 Ml Cartridge 100 Unit SQ TIDACHC Lantus (Insulin Glargine,Hum.rec.anlog) 100 Unit/1 Ml Vial 35 Unit SQ HS Hydrocodone-Apap 7.5-325 (Hydrocodone Bit/Acetaminophen) 1 Tab Tablet 1 Tab PO PRN Q6HRS PRN Glimepiride 1 Mg Tablet 1 Mg PO DAILY Simvastatin 40 Mg Tablet 1 Tab PO QHS Fenofibrate 160 Mg Tablet 145 Mg PO HS Propranolol Hcl 40 Mg Tablet 1 Tab PO BID One-Daily Multi-Vitamin (Multivitamin) 1 Each Tablet 1 Tab PO DAILY 30 Days Vitals/I & O Vital Sign - Last 24 Hours 02/22/20 02/22/20 02/22/20 02/22/20 08:00 08:14 08:47 09:04 Temp 98.3 98.3 Pulse 60 60 61 Resp 28 28 B/P (MAP) 120/52 (74) 120/52 108/50 (69) Pulse Ox 100 100 O2 Delivery Mechanical Ventilator Ventilator Ventilator 02/22/20 02/22/20 02/22/20 02/22/20 10:43 11:13 11:34 11:51 Pulse 58 57 Resp 28 28 B/P (MAP) 112/49 (70) 124/56 (78) Pulse Ox 100 100 100 O2 Delivery Ventilator Ventilator Ventilator Mechanical Ventilator 02/22/20 02/22/20 02/22/20 02/22/20 12:14 12:59 13:00 13:29 Temp 99.0 99.0 Pulse 58 58 Resp 28 28 B/P (MAP) 118/55 (76) 120/53 (75) Pulse Ox 99 99 100 99 O2 Delivery Ventilator Ventilator Ventilator Ventilator 02/22/20 02/22/20 02/22/20 02/22/20 14:00 15:00 15:28 16:24 Temp 98.0 98.0 Pulse 58 58 58 Resp 28 B/P (MAP) 116/52 (73) 120/59 (79) 110/55 (73) Pulse Ox 100 100 100 99 O2 Delivery Ventilator Ventilator Ventilator Ventilator 02/22/20 02/22/20 02/22/20 02/22/20 16:26 17:10 18:17 19:00 Pulse 59 61 62 Resp B/P (MAP) 113/56 (75) 112/54 (73) 95/45 (62) Pulse Ox 98 97 99 O2 Delivery Mechanical Ventilator Ventilator Ventilator Ventilator 02/22/20 02/22/20 02/22/20 02/22/20 20:00 20:00 20:16 21:00 Temp 98.3 98.3 Pulse 64 66 Resp B/P (MAP) 97/45 (62) 113/51 (71) Pulse Ox 98 99 97 O2 Delivery Mechanical Ventilator Ventilator Ventilator Ventilator 02/22/20 02/22/20 02/22/20 02/22/20 21:03 22:00 23:00 23:59 Temp 98.3 98.3 Pulse 65 68 64 62 Resp 28 B/P (MAP) 113/51 113/50 (71) 127/53 (77) 114/47 (69) Pulse Ox 97 98 99 O2 Delivery Ventilator Ventilator Ventilator 02/22/20 02/23/20 02/23/20 02/23/20 23:59 00:14 01:00 02:00 Pulse 60 65 Resp B/P (MAP) 100/52 (68) 105/54 (71) Pulse Ox 99 97 95 O2 Delivery Mechanical Ventilator Ventilator Ventilator Ventilator 02/23/20 02/23/20 02/23/20 02/23/20 03:00 04:00 04:00 04:28 Temp 94.4 94.4 Pulse 62 62 Resp 28 28 B/P (MAP) 102/49 (66) 95/46 (62) Pulse Ox 94 95 96 O2 Delivery Ventilator Ventilator Mechanical Ventilator Ventilator 02/23/20 02/23/20 02/23/20 05:00 06:00 07:00 Pulse 60 58 58 Resp 28 28 28 B/P (MAP) 102/53 (69) 104/53 (70) 102/51 (68) Pulse Ox 96 94 94 O2 Delivery Ventilator Ventilator Ventilator Intake and Output 02/22/20 02/22/20 02/23/20 15:00 23:00 07:00 Intake Total 750 ml 2856 ml 1664 ml Output Total 475 ml 1080 ml 460 ml Balance 275 ml 1776 ml 1204 ml Justicifation of Admission Dx: Justifications for Admission: Justification of Admission Dx: Yes RHONDA CORREIA MD Feb 23, 2020 07:47
[2020-02-23] MEDS ORDERED: DEXTROSE 50% 25 GM / 50ML DISP.SYRIN. IV PRN (08:00)
[2020-02-23] MEDS ORDERED: MAGNESIUM SULFATE 2GM 50 ML IV ONE (08:00)
[2020-02-23] MEDS: POTASSIUM CHLORIDE 20MEQ 100 ML IV SCH ×2 (08:17→09:18)
[2020-02-23] MEDS: MICAFUNGIN 100 MG in IV DEXTROSE 5% 100ML 100 ML IV SCH (08:18)
[2020-02-23] MEDS: FUROSEMIDE 40 MG/4 ML VIAL. IVP SCH (08:18)
[2020-02-23] MEDS: CHOLECALCIFEROL (VITAMIN D3) 1,000 UNIT TABLET PO SCH (08:19)
[2020-02-23] MEDS: PANTOPRAZOLE IV PUSH 40 MG VIAL. IVP SCH (08:19)
[2020-02-23] MEDS: MULTIVITAMINS,THERAPEUTIC 5 ML ORAL LIQUID. PEG SCH (08:19)
[2020-02-23] MEDS: FENOFIBRATE,MICRONIZED 134 MG CAPSULE PO SCH (08:20)
[2020-02-23] MEDS: MIDAZOLAM 100mg/100ml NS BAG 100 ML IV PRN ×2 (08:22→21:56)
[2020-02-23 08:35] LABS: BASE EXCESS ABG 7 mmol/L (-3-3); HCO3 ABG 31 mmol/L (21-28); PCO2 ABG 43 mmHg (35-46); PO2 ABG 68 mmHg (65-108); SAT O2 ABG 93 % (92-99)
[2020-02-23 08:50] LABS: FIO2 ABG 60%+5
[2020-02-23] MEDS: ELECTROLYTE (ICU) PROTOCOL. MC SCH (09:00)
[2020-02-23] MEDS: PROPRANOLOL 40 MG TABLET. PO SCH ×3 (09:00→20:35)
--- NOTE | 2020-02-23 09:07 | PDOC ---
DATE OF SERVICE DATE: 02/23/20 TIME: 09:04 SUBJECTIVE ROS Stable, remains intubated OBJECTIVE Vital Signs Vital Signs Date Time Temp Pulse Resp B/P (MAP) Pulse Ox O2 Delivery O2 Flow Rate FiO2 02/23/20 08:30 96 Ventilator 02/23/20 07:00 58 28 102/51 (68) 02/23/20 04:00 94.4 94.4 I & 0 Intake and Output 02/23/20 07:00 Intake Total 5668 ml Output Total 2055 ml Balance 3613 ml Intake IV Total 3370 ml Tube Feeding 1548 ml Other 750 ml Output Urine Total 2055 ml Gastric Drainage Total 0 ml PHYSICAL EXAM Physical Exam GENERAL: intubated HEENT: Intubated NECK Supple LUNGS: Clear to auscultation ant HEART: S1, S2. ABDOMEN: Obese,soft EXTREMITIES: bilateral lower extremity edema and erythema +, chronic SKIN: No rash NEUROLOGIC: sedated, intubated [place] + DIAGNOSIS/ASSESSMENT Assessment & Plan CKD stage 3/ 4 - Cr 2.63 with eGFR 24 in May 2017, used to follow with Dr. Julio. Recently labs Cr 2.1 -2.2 , UA unremarkable, Rt Kidney reported normal on Abd US Renal Function stable, Cr 2.4 getting IV Lasix per Pulm, UOP adequate Supportive care, strict I/O, monitor Hx of NATASHA on CKD- Non Oliguric , recent hospitalization in Oct 2019 2/2 GI bleed , Cr improved to baseline prior to dc . Hx of NATASHA and Hyperkalemia in 2018 . Past vazquez no significant proteinuria Acute respiratory failure with AE COPD, a/c CHF, and possible PNA, intubated . Cxr Central vascular congestion and interstitial edema persists. Pleural effusion- Small to moderate right and probable small left pleural effusion noted. Acute Anemia in Oct 2019 - s/p EGD with PUD s/p PRBC , FFP's in Oct 2019 Liver contour is normal. Hepatopedal flow noted within the portal vein. Increased echogenicity of liver. Gallbladder is mildly distended. Numerous gallstones are noted. There is a small amount of pericholecystic fluid. No gallbladder wall thickening. Common bile duct is mildly dilated measuring 7 mm in diameter. Right kidney measures 12.8 cm in length. No hydronephrosis. Aorta and IVC are not well seen. Distended gallbladder, pericholecystic fluid and gallstones. Findings are equivocal for acute cholecystitis. Diffuse hepatic steatosis. DM II- per primary HTN-- stable Acute on chronic diastolic CHF; Echo 03/13 with preserved LV systolic function . S/p IV Bumex at [facility] PAFIB; Was in AFIB with controlled rate per EKG at [facility]. Presently SR Hx DVT/PE. S/p IVC filter Morbid obesity PUI; rapid COVID negative 02/20. AMS, elevated ammonia level Dw RN COMMENT/RELEVANT DATA Meds Current Medications Medications (Trade) Dose Ordered Sig/Dulce Start Time Stop Time Status Last Admin Dose Admin Apixaban (Eliquis) 5 mg BID 02/21/20 21:30 02/22/20 09:28 DC 02/22/20 08:46 5 MG Bisacodyl (Dulcolax Supp) 10 mg PRN DAILY PRN 02/21/20 12:15 Dextrose (Dextrose 50%-Water Syringe) 12.5 gm PRN Q15MIN PRN 02/23/20 08:00 Famotidine (Pepcid Vial) 20 mg BID 02/21/20 13:00 02/21/20 12:53 DC Fenofibrate (Lofibra) 134 mg DAILY 02/22/20 09:00 02/23/20 08:20 134 MG Fentanyl Citrate 55 ml @ 0 mls/hr CONT PRN 02/21/20 11:00 02/22/20 12:59 2 MLS/HR Fentanyl Citrate (Fentanyl 2ml Vial) 50 mcg PRN Q1HR PRN 02/21/20 06:45 Furosemide (Lasix) 40 mg DAILY 02/22/20 10:00 02/23/20 08:18 40 MG Influenza Virus Vaccine Quadrival (Fluzone Quad [id number] Syringe) 0.5 ml ONCE ONCE 02/22/20 09:00 02/22/20 09:01 DC Info (Anti-Coagulation Monitoring By Pharmacy) 1 each PRN DAILY PRN 02/22/20 08:15 Info (FLU VACCINE SCREEN per RX) 1 each 1X ONCE 02/22/20 00:00 02/22/20 00:01 UNV Info (Icu Electrolyte Protocol) 1 ea DAILY 02/22/20 09:00 Insulin Human Lispro (HumaLOG) 0-5 UNITS Q6HRS 02/23/20 12:00 Linezolid/Dextrose 300 ml @ 300 mls/hr Q12HR 02/22/20 11:30 02/22/20 11:20 DC Magnesium Sulfate 50 ml @ 25 mls/hr 1X ONCE 02/23/20 08:00 02/23/20 09:59 02/23/20 08:17 25 MLS/HR Meropenem 500 mg/ Sodium Chloride 50 ml @ 100 mls/hr Q8HRS 02/21/20 14:00 02/22/20 08:19 DC 02/22/20 05:38 100 MLS/HR Micafungin Sodium 100 mg/Dextrose 100 ml @ 100 mls/hr Q24H 02/22/20 12:00 02/23/20 08:18 100 MLS/HR Midazolam HCl 100 ml @ 0 mls/hr CONT PRN 02/21/20 06:45 02/23/20 08:22 8 MLS/HR Morphine Sulfate (Morphine Sulfate) 4 mg PRN Q1HR PRN 02/21/20 06:45 02/23/20 06:20 DC Multivitamins (Thera M Plus) 1 tab DAILY 02/22/20 09:00 02/22/20 08:44 DC Multivitamins/ Minerals Therapeutic (Centrum Multivit-Mineral Liq) 5 ml DAILY 02/22/20 09:00 02/23/20 08:19 5 ML Ondansetron HCl (Zofran) 4 mg PRN Q6HRS PRN 02/21/20 12:15 Pantoprazole Sodium (PROTONIX VIAL for IV PUSH) 40 mg DAILY 02/22/20 09:00 02/23/20 08:19 40 MG Pantoprazole Sodium (Protonix) 40 mg DAILYAC 02/22/20 07:30 02/21/20 22:27 DC Piperacillin Sod/ Tazobactam Sod (Zosyn Per Pharmacy) 1 each PRN DAILY PRN 02/21/20 12:15 Piperacillin Sod/ Tazobactam Sod 3.375 gm/Sodium Chloride 50 ml @ 100 mls/hr Q6HRS 02/21/20 18:00 02/23/20 06:24 100 MLS/HR Potassium Chloride/Water 100 ml @ 100 mls/hr Q1H 02/23/20 08:00 02/23/20 09:59 02/23/20 08:17 100 MLS/HR Propofol 100 ml @ 0 mls/hr CONT PRN 02/21/20 06:45 02/23/20 04:57 14.2 MLS/HR Propranolol HCl (Inderal) 40 mg BID 02/21/20 21:30 02/22/20 21:03 40 MG Simvastatin (Zocor) 40 mg QHS 02/21/20 21:00 02/22/20 20:53 40 MG Sodium Chloride (Normal Saline Flush) 3 ml QSHIFT PRN 02/21/20 12:15 Cancel Sucralfate (Carafate) 1 gm QID 02/21/20 21:30 02/21/20 22:23 DC Vitamin D (Vitamin D3) 1,000 unit DAILY 02/22/20 09:00 02/23/20 08:19 1,000 UNIT Lab Laboratory Tests Test 02/22/20 11:30 02/22/20 16:52 02/23/20 00:11 02/23/20 06:30 Glucose (Fingerstick) 130 mg/dL (70-99) 147 mg/dL (70-99) 212 mg/dL (70-99) 192 mg/dL (70-99) White Blood Count 6.8 x10^3/uL (4.0-11.0) Red Blood Count 3.13 x10^6/uL (4.30-5.70) Hemoglobin 7.9 g/dL (13.0-17.5) Hematocrit 24.8 % (39.0-53.0) Mean Corpuscular Volume 79 fL (79-100) Mean Corpuscular Hemoglobin 25 pg (25-35) Mean Corpuscular Hemoglobin Concent 32 g/dL (31-37) Red Cell Distribution Width 17.5 % (11.5-14.5) Platelet Count 275 x10^3/uL (140-400) Sodium Level 143 mmol/L (136-145) Potassium Level 3.5 mmol/L (3.5-5.1) Chloride Level 104 mmol/L (98-107) Carbon Dioxide Level 34 mmol/L (21-32) Anion Gap 5 (6-14) Blood Urea Nitrogen 40 mg/dL (8-26) Creatinine 2.4 mg/dL (0.7-1.3) Estimated GFR (Cockcroft-Gault) 27.1 Glucose Level 211 mg/dL (70-99) Calcium Level 8.4 mg/dL (8.5-10.1) Magnesium Level 1.8 mg/dL (1.8-2.4) Test 02/23/20 08:00 O2 Saturation 93 % (92-99) Arterial Blood pH 7.48 (7.35-7.45) Arterial Blood pCO2 at Patient Temp 43 mmHg (35-46) Arterial Blood pO2 at Patient Temp 68 mmHg (65-108) Arterial Blood HCO3 31 mmol/L (21-28) Arterial Blood Base Excess 7 mmol/L (-3-3) FiO2 60%+5 Results All relevant outside records, renal labs, imaging studies, telemetry/EKG's were reviewed. Justicifation of Admission Dx: Justifications for Admission: Justification of Admission Dx: Yes MULUGETA PEREZ MD Feb 23, 2020 09:07
--- NOTE | 2020-02-23 09:31 | PDOC ---
Date of Service: DATE: 02/23/20 TIME: 09:28 Objective: Objective: Reviewed chart. Vital Signs: Vital Signs Date Time Temp Pulse Resp B/P (MAP) Pulse Ox O2 Delivery O2 Flow Rate FiO2 02/23/20 09:19 64 98/54 02/23/20 09:16 20 94 Ventilator 02/23/20 08:00 97.9 97.9 Labs: Laboratory Tests Test 02/22/20 11:30 02/22/20 16:52 02/23/20 00:11 02/23/20 06:30 Glucose (Fingerstick) 130 mg/dL 147 mg/dL 212 mg/dL 192 mg/dL White Blood Count 6.8 x10^3/uL Red Blood Count 3.13 x10^6/uL Hemoglobin 7.9 g/dL Hematocrit 24.8 % Mean Corpuscular Volume 79 fL Mean Corpuscular Hemoglobin 25 pg Mean Corpuscular Hemoglobin Concent 32 g/dL Red Cell Distribution Width 17.5 % Platelet Count 275 x10^3/uL Sodium Level 143 mmol/L Potassium Level 3.5 mmol/L Chloride Level 104 mmol/L Carbon Dioxide Level 34 mmol/L Anion Gap 5 Blood Urea Nitrogen 40 mg/dL Creatinine 2.4 mg/dL Estimated GFR (Cockcroft-Gault) 27.1 Glucose Level 211 mg/dL Calcium Level 8.4 mg/dL Magnesium Level 1.8 mg/dL Test 02/23/20 08:00 O2 Saturation 93 % Arterial Blood pH 7.48 Arterial Blood pCO2 at Patient Temp 43 mmHg Arterial Blood pO2 at Patient Temp 68 mmHg Arterial Blood HCO3 31 mmol/L Arterial Blood Base Excess 7 mmol/L FiO2 60%+5 PE: GEN: intubated LUNGS: vent/clear HEART: distant ABD: round/large, soft, fairly quiet BS, NG feeds running NEURO/PSYCH: sedated A/P: Encephalopathy, resp failure Chronic TAN - stable H/o PUD - no bleeding, on IV PPI Cholelihtiasis w/ distended GB and pericholecystic fluid - LFTs normal COVID negative 02/20 -- Continue same per GI. Justicifation of Admission Dx: Justifications for Admission: Justification of Admission Dx: Yes ANCA ROSENBAUM Feb 23, 2020 09:31
--- NOTE | 2020-02-23 09:59 | PDOC ---
MOY VELAZQUEZ SWITCH OPERATOR 02/23/20 0959: CARDIO Progress Notes Date and Time Date of Service 02/23/2020 Time of Evaluation 0910 Subjective Subjective: Other (intubated, sedated) Vitals Vitals Vital Signs Date Time Temp Pulse Resp B/P (MAP) Pulse Ox O2 Delivery O2 Flow Rate FiO2 02/23/20 09:19 64 98/54 02/23/20 09:16 20 94 Ventilator 02/23/20 08:00 97.9 97.9 Weight Weight [ ] Input and Output Intake and Output Intake and Output 02/23/20 07:00 Intake Total 5668 ml Output Total 2055 ml Balance 3613 ml Intake IV Total 3370 ml Tube Feeding 1548 ml Other 750 ml Output Urine Total 2055 ml Gastric Drainage Total 0 ml Laboratory Labs Laboratory Tests Test 02/22/20 11:30 02/22/20 16:52 02/23/20 00:11 02/23/20 06:30 Glucose (Fingerstick) 130 mg/dL (70-99) 147 mg/dL (70-99) 212 mg/dL (70-99) 192 mg/dL (70-99) White Blood Count 6.8 x10^3/uL (4.0-11.0) Red Blood Count 3.13 x10^6/uL (4.30-5.70) Hemoglobin 7.9 g/dL (13.0-17.5) Hematocrit 24.8 % (39.0-53.0) Mean Corpuscular Volume 79 fL (79-100) Mean Corpuscular Hemoglobin 25 pg (25-35) Mean Corpuscular Hemoglobin Concent 32 g/dL (31-37) Red Cell Distribution Width 17.5 % (11.5-14.5) Platelet Count 275 x10^3/uL (140-400) Sodium Level 143 mmol/L (136-145) Potassium Level 3.5 mmol/L (3.5-5.1) Chloride Level 104 mmol/L (98-107) Carbon Dioxide Level 34 mmol/L (21-32) Anion Gap 5 (6-14) Blood Urea Nitrogen 40 mg/dL (8-26) Creatinine 2.4 mg/dL (0.7-1.3) Estimated GFR (Cockcroft-Gault) 27.1 Glucose Level 211 mg/dL (70-99) Calcium Level 8.4 mg/dL (8.5-10.1) Magnesium Level 1.8 mg/dL (1.8-2.4) Test 02/23/20 08:00 O2 Saturation 93 % (92-99) Arterial Blood pH 7.48 (7.35-7.45) Arterial Blood pCO2 at Patient Temp 43 mmHg (35-46) Arterial Blood pO2 at Patient Temp 68 mmHg (65-108) Arterial Blood HCO3 31 mmol/L (21-28) Arterial Blood Base Excess 7 mmol/L (-3-3) FiO2 60%+5 Microbiology Micro Microbiology 02/21/20 Blood Culture - Preliminary, Resulted NO GROWTH AFTER 1 DAY Physical Exam HEENT: Neck Supple W Full Motion Chest: Symmetric LUNGS: Other (mechanical ventilation ) Heart: RRR (SR,SB) Abdomen: Other (obese ) Extremities: Other (1+ bilateral LE edema. Chronic bilateral LE venous stasis dermatitis) Neurology: other (sedated ) Assessment Assessment 1. Acute respiratory failure with AECOPD, a/c CHF, and possible PNA, intubated with vent 2. Acute on chronic diastolic CHF; EF and WM nml 3. PAFIB; Maintaining SR 4. Chronic anemia, recent GIB, PUD (11/12). OAC discontinued at that time. NH med list including Eliquis 5mg PO BID (recently resumed). Hgb 7.9 5. Hx DVT/PE. S/p IVC filter 6. Hypertension: marginal but controlled 7. Hyperlipidemia 8. CKD: stage 4?. Nephrology following 9. Morbid obesity with possible FLACO 10. Moderate pulmonary HTN Recommendations 1. Lasix therapy, monitor renal function 2. Will continue propranolol for now, no renal adjustment necessary 3. Hold Eliquis for now with anemia 4. Poor candidate for long-term OAC given h/o anemia, PUD, GIB. Plan for LAAO on an outpatient basis 5. Lung optimization, vent management as per pulm 6. Supportive care Justicifation of Admission Dx: Justifications for Admission: Justification of Admission Dx: Yes FAIZAN WEINER MD 02/24/20 1008: CARDIO Progress Notes Assessment Assessment Patient seen 02/23/20. Agree with CINDER MAN's assessment and plan. Acute respiratory failure secondary to combination of acute COPD exacerbation, acute on chronic diastolic heart failure and pneumonia. Continue diuresis with close monitoring of creatinine. 2D echo showed normal LV systolic function with diastolic dysfunction PAF, maintaining sinus rhythm. He is a poor candidate for long-term anticoagulation. Plan outpatient referral for LAAO. Continue vent management per pulmonary team. MOY VELAZQUEZ APRN Feb 23, 2020 09:59 FAIZAN WEINER MD Feb 24, 2020 10:08
--- NOTE | 2020-02-23 11:06 | PDOC ---
Infectious Disease Note Subjective: Subjective Patient intubated/sedated No acute issues per discussion with RN Vital Signs: Vital Signs Vital Signs Date Time Temp Pulse Resp B/P (MAP) Pulse Ox O2 Delivery O2 Flow Rate FiO2 02/23/20 10:00 63 20 83/39 (54) 90 Ventilator 02/23/20 08:00 97.9 97.9 Physical Exam: PHYSICAL EXAM GENERAL: Intubated, sedated male in COVID isolation. HEENT: Normocephalic, atraumatic, anicteric. LUNGS: Clear anteriorly. HEART: S1, S2. ABDOMEN: Obese. Bowel sounds present, nondistended. GENITOURINARY: Scrotal swelling. Yeast in groin [place] in place. EXTREMITIES: Bilateral venous stasis changes present. Wounds present over both lower extremities, hyperkeratotic skin, no cyanosis, no clubbing. DERMATOLOGIC: Warm, dry. No generalized rash except for above. Right internal jugular vein in place. Medications: Inpatient Meds: Current Medications Medications (Trade) Dose Ordered Sig/Dulce Start Time Stop Time Status Last Admin Dose Admin Apixaban (Eliquis) 5 mg BID 02/21/20 21:30 02/22/20 09:28 DC 02/22/20 08:46 5 MG Bisacodyl (Dulcolax Supp) 10 mg PRN DAILY PRN 02/21/20 12:15 Dextrose (Dextrose 50%-Water Syringe) 12.5 gm PRN Q15MIN PRN 02/23/20 08:00 Famotidine (Pepcid Vial) 20 mg BID 02/21/20 13:00 02/21/20 12:53 DC Fenofibrate (Lofibra) 134 mg DAILY 02/22/20 09:00 02/23/20 08:20 134 MG Fentanyl Citrate 55 ml @ 0 mls/hr CONT PRN 02/21/20 11:00 02/22/20 12:59 2 MLS/HR Fentanyl Citrate (Fentanyl 2ml Vial) 50 mcg PRN Q1HR PRN 02/21/20 06:45 Furosemide (Lasix) 40 mg DAILY 02/22/20 10:00 02/23/20 08:18 40 MG Influenza Virus Vaccine Quadrival (Fluzone Quad Syringe) 0.5 ml ONCE ONCE 02/22/20 09:00 02/22/20 09:01 DC Info (Anti-Coagulation Monitoring By Pharmacy) 1 each PRN DAILY PRN 02/22/20 08:15 Info (FLU VACCINE SCREEN per RX) 1 each 1X ONCE 02/22/20 00:00 02/22/20 00:01 UNV Info (Icu Electrolyte Protocol) 1 ea DAILY 02/22/20 09:00 02/23/20 09:00 1 EA Insulin Human Lispro (HumaLOG) 0-5 UNITS Q6HRS 02/23/20 12:00 Linezolid/Dextrose 300 ml @ 300 mls/hr Q12HR 02/22/20 11:30 02/22/20 11:20 DC Magnesium Sulfate 50 ml @ 25 mls/hr 1X ONCE 02/23/20 08:00 02/23/20 09:59 DC 02/23/20 08:17 25 MLS/HR Meropenem 500 mg/ Sodium Chloride 50 ml @ 100 mls/hr Q8HRS 02/21/20 14:00 02/22/20 08:19 DC 02/22/20 05:38 100 MLS/HR Micafungin Sodium 100 mg/Dextrose 100 ml @ 100 mls/hr Q24H 02/22/20 12:00 02/23/20 08:18 100 MLS/HR Midazolam HCl 100 ml @ 0 mls/hr CONT PRN 02/21/20 06:45 02/23/20 08:22 8 MLS/HR Morphine Sulfate (Morphine Sulfate) 4 mg PRN Q1HR PRN 02/21/20 06:45 02/23/20 06:20 DC Multivitamins (Thera M Plus) 1 tab DAILY 02/22/20 09:00 02/22/20 08:44 DC Multivitamins/ Minerals Therapeutic (Centrum Multivit-Mineral Liq) 5 ml DAILY 02/22/20 09:00 02/23/20 08:19 5 ML Ondansetron HCl (Zofran) 4 mg PRN Q6HRS PRN 02/21/20 12:15 Pantoprazole Sodium (PROTONIX VIAL for IV PUSH) 40 mg DAILY 02/22/20 09:00 02/23/20 08:19 40 MG Pantoprazole Sodium (Protonix) 40 mg DAILYAC 02/22/20 07:30 02/21/20 22:27 DC Piperacillin Sod/ Tazobactam Sod (Zosyn Per Pharmacy) 1 each PRN DAILY PRN 02/21/20 12:15 Piperacillin Sod/ Tazobactam Sod 3.375 gm/Sodium Chloride 50 ml @ 100 mls/hr Q6HRS 02/21/20 18:00 02/23/20 11:02 100 MLS/HR Potassium Chloride/Water 100 ml @ 100 mls/hr Q1H 02/23/20 08:00 02/23/20 09:59 DC 02/23/20 09:18 100 MLS/HR Propofol 100 ml @ 0 mls/hr CONT PRN 02/21/20 06:45 02/23/20 11:03 14.2 MLS/HR Propranolol HCl (Inderal) 40 mg BID 02/21/20 21:30 02/23/20 09:19 40 MG Simvastatin (Zocor) 40 mg QHS 02/21/20 21:00 02/22/20 20:53 40 MG Sodium Chloride (Normal Saline Flush) 3 ml QSHIFT PRN 02/21/20 12:15 Cancel Sucralfate (Carafate) 1 gm QID 02/21/20 21:30 02/21/20 22:23 DC Vitamin D (Vitamin D3) 1,000 unit DAILY 02/22/20 09:00 02/23/20 08:19 1,000 UNIT Labs: Lab Laboratory Tests Test 02/22/20 11:30 02/22/20 16:52 02/23/20 00:11 02/23/20 06:30 Glucose (Fingerstick) 130 mg/dL (70-99) 147 mg/dL (70-99) 212 mg/dL (70-99) 192 mg/dL (70-99) White Blood Count 6.8 x10^3/uL (4.0-11.0) Red Blood Count 3.13 x10^6/uL (4.30-5.70) Hemoglobin 7.9 g/dL (13.0-17.5) Hematocrit 24.8 % (39.0-53.0) Mean Corpuscular Volume 79 fL (79-100) Mean Corpuscular Hemoglobin 25 pg (25-35) Mean Corpuscular Hemoglobin Concent 32 g/dL (31-37) Red Cell Distribution Width 17.5 % (11.5-14.5) Platelet Count 275 x10^3/uL (140-400) Sodium Level 143 mmol/L (136-145) Potassium Level 3.5 mmol/L (3.5-5.1) Chloride Level 104 mmol/L (98-107) Carbon Dioxide Level 34 mmol/L (21-32) Anion Gap 5 (6-14) Blood Urea Nitrogen 40 mg/dL (8-26) Creatinine 2.4 mg/dL (0.7-1.3) Estimated GFR (Cockcroft-Gault) 27.1 Glucose Level 211 mg/dL (70-99) Calcium Level 8.4 mg/dL (8.5-10.1) Magnesium Level 1.8 mg/dL (1.8-2.4) Test 02/23/20 08:00 O2 Saturation 93 % (92-99) Arterial Blood pH 7.48 (7.35-7.45) Arterial Blood pCO2 at Patient Temp 43 mmHg (35-46) Arterial Blood pO2 at Patient Temp 68 mmHg (65-108) Arterial Blood HCO3 31 mmol/L (21-28) Arterial Blood Base Excess 7 mmol/L (-3-3) FiO2 60%+5 Objective: Assessment: Febrile illness Acute hypoxic respiratory failure status post intubation Encephalopathy likely metabolic NATASHA with underlying CKD Diabetes mellitus Chronic venous stasis with bilateral chronic nonhealing lower extremity wounds with mild superimposed cellulitis Yeast in groin Elevated ammonia , cholelithiasis with distended gb on ct abdomen. History of atrial fibrillation. History of pulmonary embolism and deep venous thrombosis, status post IVC filter. Rapid COVID negative, 02/20. 10. Chronic venous stasis dermatitis, bilateral lower extremities with mild superimposed bilateral lower extremity cellulitis. 11. Congestive heart failure. 12. [facility] resident. 13. Elevated D-dimer. 14. Anemia. RECOMMENDATIONS: 1. Discontinue meropenem as the patient does not need 2-beta lactams 2. Continue Zosyn. 3. Add Zyvox and micafungin. 4. Follow up labs and cultures. 5. Continue local wound care. 6. Continue supportive care. 7. GI, Pulmonary, Neurology and Renal team consulte Plan: Plan of Care Continue Zosyn Zyvox and micafungin Follow-up cultures here and from [facility] Continue supportive care Monitor labs Discussed with ARTURO FARRIS MD Feb 23, 2020 11:06
--- NOTE | 2020-02-23 11:21 | PDOC ---
PROGRESS NOTES Date of Service DATE: 02/23/20 TIME: 11:18 Assessment Metabolic encephalopathy Respiratory failure, acute kidney injury, diabetes, history of GI bleed several months ago, elevated ammonia level, diabetes, venous stasis, sepsis No evidence that he had a stroke. Plan No additional neurological studies or treatments needed at this time Neurology will follow at intervals Subjective None Objective Vital Signs Date Time Temp Pulse Resp B/P (MAP) Pulse Ox O2 Delivery O2 Flow Rate FiO2 02/23/20 10:00 63 20 83/39 (54) 90 Ventilator 02/23/20 08:00 97.9 97.9 Intake and Output 02/23/20 07:00 Intake Total 5668 ml Output Total 2055 ml Balance 3613 ml Intake IV Total 3370 ml Tube Feeding 1548 ml Other 750 ml Output Urine Total 2055 ml Gastric Drainage Total 0 ml PHYSICAL EXAM Intubated and sedated PERRL. No spontaneous extraocular movements CN: no focal findings. Muscle tone: normal. Muscle strength: No response to pain DTR: 0+ Plantar reflex: Silent Gait: not examined in bed. Sensory exam: no abnormal findings. No cerebellar signs elicited. Review of Relevant I have reviewed the following items megan (where applicable) has been applied. Labs Laboratory Tests Test 02/21/20 16:00 02/22/20 00:25 02/22/20 05:45 02/22/20 06:01 White Blood Count 7.2 x10^3/uL (4.0-11.0) Red Blood Count 3.32 x10^6/uL (4.30-5.70) Hemoglobin 8.4 g/dL (13.0-17.5) Hematocrit 27.2 % (39.0-53.0) Mean Corpuscular Volume 82 fL (79-100) Mean Corpuscular Hemoglobin 25 pg (25-35) Mean Corpuscular Hemoglobin Concent 31 g/dL (31-37) Red Cell Distribution Width 17.7 % (11.5-14.5) Platelet Count 312 x10^3/uL (140-400) Neutrophils (%) (Auto) 82 % (31-73) Lymphocytes (%) (Auto) 7 % (24-48) Monocytes (%) (Auto) 9 % (0-9) Eosinophils (%) (Auto) 1 % (0-3) Basophils (%) (Auto) 1 % (0-3) Neutrophils # (Auto) 5.9 x10^3/uL (1.8-7.7) Lymphocytes # (Auto) 0.5 x10^3/uL (1.0-4.8) Monocytes # (Auto) 0.6 x10^3/uL (0.0-1.1) Eosinophils # (Auto) 0.1 x10^3/uL (0.0-0.7) Basophils # (Auto) 0.1 x10^3/uL (0.0-0.2) Sodium Level 145 mmol/L (136-145) 143 mmol/L (136-145) Potassium Level 4.2 mmol/L (3.5-5.1) 3.6 mmol/L (3.5-5.1) Chloride Level 103 mmol/L (98-107) 103 mmol/L (98-107) Carbon Dioxide Level 39 mmol/L (21-32) 36 mmol/L (21-32) Anion Gap 3 (6-14) 4 (6-14) Blood Urea Nitrogen 36 mg/dL (8-26) 38 mg/dL (8-26) Creatinine 2.2 mg/dL (0.7-1.3) 2.1 mg/dL (0.7-1.3) Estimated GFR (Cockcroft-Gault) 29.9 31.6 BUN/Creatinine Ratio 16 (6-20) 18 (6-20) Glucose Level 95 mg/dL (70-99) 132 mg/dL (70-99) Lactic Acid Level 0.9 mmol/L (0.4-2.0) Calcium Level 9.0 mg/dL (8.5-10.1) 8.4 mg/dL (8.5-10.1) Magnesium Level 1.9 mg/dL (1.8-2.4) Total Bilirubin 0.5 mg/dL (0.2-1.0) 0.5 mg/dL (0.2-1.0) Aspartate Amino Transf (AST/SGOT) 19 U/L (15-37) 20 U/L (15-37) Alanine Aminotransferase (ALT/SGPT) 6 U/L (16-63) 8 U/L (16-63) Alkaline Phosphatase 55 U/L (46-116) 54 U/L (46-116) Ammonia 18 mcmol/L (11-34) 12 mcmol/L (11-34) Troponin I Quantitative < 0.017 ng/mL (0.000-0.055) Total Protein 6.3 g/dL (6.4-8.2) 5.6 g/dL (6.4-8.2) Albumin 2.2 g/dL (3.4-5.0) 1.9 g/dL (3.4-5.0) Albumin/Globulin Ratio 0.5 (1.0-1.7) 0.5 (1.0-1.7) Procalcitonin 0.26 ng/mL (0.00-0.10) Thyroid Stimulating Hormone (TSH) 1.274 uIU/mL (0.358-3.74) Glucose (Fingerstick) 125 mg/dL (70-99) 134 mg/dL (70-99) Prothrombin Time 17.9 SEC (11.7-14.0) Prothromb Time International Ratio 1.5 (0.8-1.1) Activated Partial Thromboplast Time 41 SEC (24-38) Test 02/22/20 06:20 02/22/20 08:00 02/22/20 11:30 02/22/20 16:52 White Blood Count 6.9 x10^3/uL (4.0-11.0) Red Blood Count 3.13 x10^6/uL (4.30-5.70) Hemoglobin 7.9 g/dL (13.0-17.5) Hematocrit 25.2 % (39.0-53.0) Mean Corpuscular Volume 81 fL (79-100) Mean Corpuscular Hemoglobin 25 pg (25-35) Mean Corpuscular Hemoglobin Concent 31 g/dL (31-37) Red Cell Distribution Width 17.6 % (11.5-14.5) Platelet Count 267 x10^3/uL (140-400) Neutrophils (%) (Auto) 77 % (31-73) Lymphocytes (%) (Auto) 12 % (24-48) Monocytes (%) (Auto) 8 % (0-9) Eosinophils (%) (Auto) 2 % (0-3) Basophils (%) (Auto) 2 % (0-3) Neutrophils # (Auto) 5.3 x10^3/uL (1.8-7.7) Lymphocytes # (Auto) 0.8 x10^3/uL (1.0-4.8) Monocytes # (Auto) 0.5 x10^3/uL (0.0-1.1) Eosinophils # (Auto) 0.1 x10^3/uL (0.0-0.7) Basophils # (Auto) 0.1 x10^3/uL (0.0-0.2) O2 Saturation 96 % (92-99) Arterial Blood pH 7.54 (7.35-7.45) Arterial Blood pCO2 at Patient Temp 39 mmHg (35-46) Arterial Blood pO2 at Patient Temp 78 mmHg (65-108) Arterial Blood HCO3 32 mmol/L (21-28) Arterial Blood Base Excess 9 mmol/L (-3-3) FiO2 70/vent Glucose (Fingerstick) 130 mg/dL (70-99) 147 mg/dL (70-99) Test 02/23/20 00:11 02/23/20 06:30 02/23/20 08:00 Glucose (Fingerstick) 212 mg/dL (70-99) 192 mg/dL (70-99) White Blood Count 6.8 x10^3/uL (4.0-11.0) Red Blood Count 3.13 x10^6/uL (4.30-5.70) Hemoglobin 7.9 g/dL (13.0-17.5) Hematocrit 24.8 % (39.0-53.0) Mean Corpuscular Volume 79 fL (79-100) Mean Corpuscular Hemoglobin 25 pg (25-35) Mean Corpuscular Hemoglobin Concent 32 g/dL (31-37) Red Cell Distribution Width 17.5 % (11.5-14.5) Platelet Count 275 x10^3/uL (140-400) Sodium Level 143 mmol/L (136-145) Potassium Level 3.5 mmol/L (3.5-5.1) Chloride Level 104 mmol/L (98-107) Carbon Dioxide Level 34 mmol/L (21-32) Anion Gap 5 (6-14) Blood Urea Nitrogen 40 mg/dL (8-26) Creatinine 2.4 mg/dL (0.7-1.3) Estimated GFR (Cockcroft-Gault) 27.1 Glucose Level 211 mg/dL (70-99) Calcium Level 8.4 mg/dL (8.5-10.1) Magnesium Level 1.8 mg/dL (1.8-2.4) O2 Saturation 93 % (92-99) Arterial Blood pH 7.48 (7.35-7.45) Arterial Blood pCO2 at Patient Temp 43 mmHg (35-46) Arterial Blood pO2 at Patient Temp 68 mmHg (65-108) Arterial Blood HCO3 31 mmol/L (21-28) Arterial Blood Base Excess 7 mmol/L (-3-3) FiO2 60%+5 Laboratory Tests Test 02/22/20 11:30 02/22/20 16:52 02/23/20 00:11 02/23/20 06:30 Glucose (Fingerstick) 130 mg/dL (70-99) 147 mg/dL (70-99) 212 mg/dL (70-99) 192 mg/dL (70-99) White Blood Count 6.8 x10^3/uL (4.0-11.0) Red Blood Count 3.13 x10^6/uL (4.30-5.70) Hemoglobin 7.9 g/dL (13.0-17.5) Hematocrit 24.8 % (39.0-53.0) Mean Corpuscular Volume 79 fL (79-100) Mean Corpuscular Hemoglobin 25 pg (25-35) Mean Corpuscular Hemoglobin Concent 32 g/dL (31-37) Red Cell Distribution Width 17.5 % (11.5-14.5) Platelet Count 275 x10^3/uL (140-400) Sodium Level 143 mmol/L (136-145) Potassium Level 3.5 mmol/L (3.5-5.1) Chloride Level 104 mmol/L (98-107) Carbon Dioxide Level 34 mmol/L (21-32) Anion Gap 5 (6-14) Blood Urea Nitrogen 40 mg/dL (8-26) Creatinine 2.4 mg/dL (0.7-1.3) Estimated GFR (Cockcroft-Gault) 27.1 Glucose Level 211 mg/dL (70-99) Calcium Level 8.4 mg/dL (8.5-10.1) Magnesium Level 1.8 mg/dL (1.8-2.4) Test 02/23/20 08:00 O2 Saturation 93 % (92-99) Arterial Blood pH 7.48 (7.35-7.45) Arterial Blood pCO2 at Patient Temp 43 mmHg (35-46) Arterial Blood pO2 at Patient Temp 68 mmHg (65-108) Arterial Blood HCO3 31 mmol/L (21-28) Arterial Blood Base Excess 7 mmol/L (-3-3) FiO2 60%+5 Microbiology 02/21/20 Blood Culture - Preliminary, Resulted NO GROWTH AFTER 1 DAY Medications Current Medications Sodium Chloride (Normal Saline Flush) 3 ml QSHIFT PRN IV AFTER MEDS AND BLOOD DRAWS; Start 02/21/20 at 06:45 Sodium Chloride 1,000 ml @ 100 mls/hr Q10H IV Last administered on 02/23/20at 11:02; Start 02/21/20 at 06:45 Fentanyl Citrate 30 ml @ 0 mls/hr CONT PRN IV SEE PROTOCOL Last administered on 02/21/20at 07:26; Start 02/21/20 at 06:45; Stop 02/21/20 at 10:59; Status DC Propofol 100 ml @ 0 mls/hr CONT PRN IV PER PROTOCOL Last administered on 02/23/20at 11:03; Start 02/21/20 at 06:45 Fentanyl Citrate (Fentanyl 2ml Vial) 25 mcg PRN Q1HR PRN IV SEE COMMENTS; Start 02/21/20 at 06:45 Fentanyl Citrate (Fentanyl 2ml Vial) 50 mcg PRN Q1HR PRN IV SEE COMMENTS; Start 02/21/20 at 06:45 Famotidine (Pepcid Vial) 20 mg BID IVP Last administered on 02/21/20at 10:23; Start 02/21/20 at 09:00; Stop 02/21/20 at 12:53; Status DC Morphine Sulfate (Morphine Sulfate) 2 mg PRN Q1HR PRN IV SEE COMMENTS.; Start 02/21/20 at 06:45; Stop 02/23/20 at 06:20; Status DC Morphine Sulfate (Morphine Sulfate) 4 mg PRN Q1HR PRN IV SEE COMMENTS.; Start 02/21/20 at 06:45; Stop 02/23/20 at 06:20; Status DC Midazolam HCl 100 ml @ 0 mls/hr CONT PRN IV SEE PROTOCOL Last administered on 02/23/20at 08:22; Start 02/21/20 at 06:45 Fentanyl Citrate 55 ml @ 0 mls/hr CONT PRN IV PAIN/SEDATION Last administered on 02/22/20at 12:59; Start 02/21/20 at 11:00 Ondansetron HCl (Zofran) 4 mg PRN Q6HRS PRN IVP NAUSEA/VOMITING; Start 02/21/20 at 12:15 Famotidine (Pepcid Vial) 20 mg BID IVP ; Start 02/21/20 at 13:00; Stop at 12:53; Status DC Info (Icu Electrolyte Protocol) 1 ea DAILY MC Last administered on 02/23/20at 09:00; Start 02/22/20 at 09:00 Sodium Chloride (Normal Saline Flush) 3 ml QSHIFT PRN IV AFTER MEDS AND BLOOD DRAWS; Start 02/21/20 at 12:15; Status Cancel Bisacodyl (Dulcolax Supp) 10 mg PRN DAILY PRN CA CONSTIPATION; Start 02/21/20 at 12:15 Piperacillin Sod/ Tazobactam Sod (Zosyn Per Pharmacy) 1 each PRN DAILY PRN MC SEE COMMENTS; Start 02/21/20 at 12:15 Meropenem 500 mg/ Sodium Chloride 50 ml @ 100 mls/hr Q8HRS IV Last administered on 02/22/20at 05:38; Start 02/21/20 at 14:00; Stop 02/22/20 at 08:19; Status DC Pantoprazole Sodium (PROTONIX VIAL for IV PUSH) 40 mg DAILYAC IVP ; Start 02/22/20 at 16:30; Status Cancel Furosemide (Lasix) 40 mg 1X ONCE IVP Last administered on 02/21/20at 16:24; Start 02/21/20 at 15:00; Stop 02/21/20 at 15:01; Status DC Piperacillin Sod/ Tazobactam Sod 3.375 gm/Sodium Chloride 50 ml @ 100 mls/hr Q6HRS IV Last administered on 02/23/20at 11:02; Start 02/21/20 at 18:00 Simvastatin (Zocor) 40 mg QHS PO Last administered on 02/22/20at 20:53; Start 02/21/20 at 21:00 Propranolol HCl (Inderal) 40 mg BID PO ; Start 02/21/20 at 21:00; Status Cancel Apixaban (Eliquis) 5 mg BID PO Last administered on 02/22/20at 08:46; Start 02/21/20 at 21:30; Stop 02/22/20 at 09:28; Status DC Pantoprazole Sodium (Protonix) 40 mg DAILYAC PO ; Start 02/22/20 at 07:30; Stop 02/21/20 at 22:27; Status DC Propranolol HCl (Inderal) 40 mg BID PO Last administered on 02/23/20at 09:19; Start 02/21/20 at 21:30 Sucralfate (Carafate) 1 gm QID PO ; Start 02/21/20 at 21:30; Stop 02/21/20 at 22:23; Status DC Vitamin D (Vitamin D3) 1,000 unit DAILY PO Last administered on 02/23/20at 08:19; Start 02/22/20 at 09:00 Fenofibrate (Lofibra) 134 mg DAILY PO Last administered on 02/23/20at 08:20; Start 02/22/20 at 09:00 Multivitamins (Thera M Plus) 1 tab DAILY PO ; Start 02/22/20 at 09:00; Stop 02/22/20 at 08:44; Status DC Pantoprazole Sodium (PROTONIX VIAL for IV PUSH) 40 mg DAILY IVP Last administered on 02/23/20at 08:19; Start 02/22/20 at 09:00 Info (FLU VACCINE SCREEN per RX) 1 each 1X ONCE MC ; Start 02/22/20 at 00:00; Stop 02/22/20 at 00:01; Status UNV Influenza Virus Vaccine Quadrival (Fluzone Quad 6432-0540 Syringe) 0.5 ml ONCE ONCE VAX IM ; Start 02/22/20 at 09:00; Stop 02/22/20 at 09:01; Status DC Info (Anti-Coagulation Monitoring By Pharmacy) 1 each PRN DAILY PRN MC SEE COMMENTS; Start 02/22/20 at 08:15 Linezolid/Dextrose 300 ml @ 300 mls/hr Q12HR IV Last administered on 02/23/20at 08:19; Start 02/22/20 at 09:00 Multivitamins/ Minerals Therapeutic (Centrum Multivit-Mineral Liq) 5 ml DAILY PEG Last administered on 02/23/20at 08:19; Start 02/22/20 at 09:00 Furosemide (Lasix) 40 mg DAILY IVP Last administered on 02/23/20at 08:18; Start 02/22/20 at 10:00 Micafungin Sodium 100 mg/Dextrose 100 ml @ 100 mls/hr Q24H IV Last administered on 02/23/20at 08:18; Start 02/22/20 at 12:00 Linezolid/Dextrose 300 ml @ 300 mls/hr Q12HR IV ; Start 02/22/20 at 11:30; Stop 02/22/20 at 11:20; Status DC Potassium Chloride/Water 100 ml @ 100 mls/hr Q1H IV Last administered on 02/23/20at 09:18; Start 02/23/20 at 08:00; Stop 02/23/20 at 09:59; Status DC Magnesium Sulfate 50 ml @ 25 mls/hr 1X ONCE IV Last administered on 02/23/20at 08:17; Start 02/23/20 at 08:00; Stop 02/23/20 at 09:59; Status DC Insulin Human Lispro (HumaLOG) 0-5 UNITS Q6HRS SQ ; Start 02/23/20 at 12:00 Dextrose (Dextrose 50%-Water Syringe) 12.5 gm PRN Q15MIN PRN IV SEE COMMENTS; Start 02/23/20 at 08:00 Active Scripts Active Carafate (Sucralfate) 1 Gm Tablet 1 Tab PO QID 30 Days Protonix (Pantoprazole Sodium) 40 Mg Tablet.dr 40 Mg PO DAILYAC 30 Days Miralax (Polyethylene Glycol 3350) 17 Gm Powd.pack 1 Packet PO DAILY 2 Days dissolve in water Reported D3-50 (Cholecalciferol (Vitamin D3)) 50,000 Unit Capsule 1,000 Unit PO DAILY Propranolol Hcl 40 Mg Tablet 40 Mg PO BID Furosemide 40 Mg Tablet 40 Mg PO BID Eliquis (Apixaban) 5 Mg Tablet 5 Mg PO BID Humalog (Insulin Lispro) 100 Unit/1 Ml Cartridge 100 Unit SQ TIDACHC Lantus (Insulin Glargine,Hum.rec.anlog) 100 Unit/1 Ml Vial 35 Unit SQ HS Hydrocodone-Apap 7.5-325 (Hydrocodone Bit/Acetaminophen) 1 Tab Tablet 1 Tab PO PRN Q6HRS PRN Glimepiride 1 Mg Tablet 1 Mg PO DAILY Simvastatin 40 Mg Tablet 1 Tab PO QHS Fenofibrate 160 Mg Tablet 145 Mg PO HS Propranolol Hcl 40 Mg Tablet 1 Tab PO BID One-Daily Multi-Vitamin (Multivitamin) 1 Each Tablet 1 Tab PO DAILY 30 Days Vitals/I & O Vital Sign - Last 24 Hours 02/22/20 02/22/20 02/22/20 02/22/20 11:34 11:51 12:14 12:59 Temp 99.0 99.0 Pulse 58 Resp B/P (MAP) 118/55 (76) Pulse Ox 100 99 99 O2 Delivery Ventilator Mechanical Ventilator Ventilator Ventilator 02/22/20 02/22/20 02/22/20 02/22/20 13:00 13:29 14:00 15:00 Pulse 58 58 58 Resp B/P (MAP) 120/53 (75) 116/52 (73) 120/59 (79) Pulse Ox 100 99 100 100 O2 Delivery Ventilator Ventilator Ventilator Ventilator 02/22/20 02/22/20 02/22/20 02/22/20 15:28 16:24 16:26 17:10 Temp 98.0 98.0 Pulse 58 59 Resp B/P (MAP) 110/55 (73) 113/56 (75) Pulse Ox 100 99 98 O2 Delivery Ventilator Ventilator Mechanical Ventilator Ventilator 02/22/20 02/22/20 02/22/20 02/22/20 18:17 19:00 20:00 20:00 Temp 98.3 98.3 Pulse 61 62 64 Resp B/P (MAP) 112/54 (73) 95/45 (62) 97/45 (62) Pulse Ox 97 99 98 O2 Delivery Ventilator Ventilator Mechanical Ventilator Ventilator 02/22/20 02/22/20 02/22/20 02/22/20 20:16 21:00 21:03 22:00 Pulse 66 65 68 B/P (MAP) 113/51 (71) 113/51 113/50 (71) Pulse Ox 99 97 97 O2 Delivery Ventilator Ventilator Ventilator 02/22/20 02/22/20 02/22/20 02/23/20 23:00 23:59 23:59 00:14 Temp 98.3 98.3 Pulse 64 62 Resp 28 B/P (MAP) 127/53 (77) 114/47 (69) Pulse Ox 98 99 99 O2 Delivery Ventilator Ventilator Mechanical Ventilator Ventilator 02/23/20 02/23/20 02/23/20 02/23/20 01:00 02:00 03:00 04:00 Temp 94.4 94.4 Pulse 60 65 62 62 Resp 28 28 28 28 B/P (MAP) 100/52 (68) 105/54 (71) 102/49 (66) 95/46 (62) Pulse Ox 97 95 94 95 O2 Delivery Ventilator Ventilator Ventilator Ventilator 02/23/20 02/23/20 02/23/20 02/23/20 04:00 04:28 05:00 06:00 Pulse 60 58 Resp 28 B/P (MAP) 102/53 (69) 104/53 (70) Pulse Ox 96 96 94 O2 Delivery Mechanical Ventilator Ventilator Ventilator Ventilator 02/23/20 02/23/20 02/23/20 02/23/20 07:00 08:00 08:00 08:30 Temp 97.9 97.9 Pulse 58 62 Resp 20 B/P (MAP) 102/51 (68) 93/46 (62) Pulse Ox 94 92 96 O2 Delivery Ventilator Ventilator Mechanical Ventilator Ventilator 02/23/20 02/23/20 02/23/20 09:16 09:19 10:00 Pulse 63 64 63 Resp 20 20 B/P (MAP) 98/50 (66) 98/54 83/39 (54) Pulse Ox 94 90 O2 Delivery Ventilator Ventilator Intake and Output 02/22/20 02/22/20 02/23/20 15:00 23:00 07:00 Intake Total 750 ml 2856 ml 2062 ml Output Total 475 ml 1080 ml 500 ml Balance 275 ml 1776 ml 1562 ml Justicifation of Admission Dx: Justifications for Admission: Justification of Admission Dx: Yes CHRISTINA BRADSHAW MD Feb 23, 2020 11:21
--- NOTE | 2020-02-23 11:44 | PDOC ---
PULMONARY PROGRESS NOTES DATE: 02/23/20 TIME: 11:41 Subjective On vent support 60%, and PEEP of 5 off pressors no overnight concerns from nursing Vitals Vital Signs Date Time Temp Pulse Resp B/P (MAP) Pulse Ox O2 Delivery O2 Flow Rate FiO2 02/23/20 10:00 63 20 83/39 (54) 90 Ventilator 02/23/20 08:00 97.9 97.9 Comments intubated/sedated Lungs: Clear Cardiovascular: S1, S2 Abdomen: Other Extremities: Other (BLE edema ) Skin: Warm, Dry Labs Laboratory Tests Test 02/21/20 16:00 02/22/20 00:25 02/22/20 05:45 02/22/20 06:01 White Blood Count 7.2 x10^3/uL (4.0-11.0) Red Blood Count 3.32 x10^6/uL (4.30-5.70) Hemoglobin 8.4 g/dL (13.0-17.5) Hematocrit 27.2 % (39.0-53.0) Mean Corpuscular Volume 82 fL (79-100) Mean Corpuscular Hemoglobin 25 pg (25-35) Mean Corpuscular Hemoglobin Concent 31 g/dL (31-37) Red Cell Distribution Width 17.7 % (11.5-14.5) Platelet Count 312 x10^3/uL (140-400) Neutrophils (%) (Auto) 82 % (31-73) Lymphocytes (%) (Auto) 7 % (24-48) Monocytes (%) (Auto) 9 % (0-9) Eosinophils (%) (Auto) 1 % (0-3) Basophils (%) (Auto) 1 % (0-3) Neutrophils # (Auto) 5.9 x10^3/uL (1.8-7.7) Lymphocytes # (Auto) 0.5 x10^3/uL (1.0-4.8) Monocytes # (Auto) 0.6 x10^3/uL (0.0-1.1) Eosinophils # (Auto) 0.1 x10^3/uL (0.0-0.7) Basophils # (Auto) 0.1 x10^3/uL (0.0-0.2) Sodium Level 145 mmol/L (136-145) 143 mmol/L (136-145) Potassium Level 4.2 mmol/L (3.5-5.1) 3.6 mmol/L (3.5-5.1) Chloride Level 103 mmol/L (98-107) 103 mmol/L (98-107) Carbon Dioxide Level 39 mmol/L (21-32) 36 mmol/L (21-32) Anion Gap 3 (6-14) 4 (6-14) Blood Urea Nitrogen 36 mg/dL (8-26) 38 mg/dL (8-26) Creatinine 2.2 mg/dL (0.7-1.3) 2.1 mg/dL (0.7-1.3) Estimated GFR (Cockcroft-Gault) 29.9 31.6 BUN/Creatinine Ratio 16 (6-20) 18 (6-20) Glucose Level 95 mg/dL (70-99) 132 mg/dL (70-99) Lactic Acid Level 0.9 mmol/L (0.4-2.0) Calcium Level 9.0 mg/dL (8.5-10.1) 8.4 mg/dL (8.5-10.1) Magnesium Level 1.9 mg/dL (1.8-2.4) Total Bilirubin 0.5 mg/dL (0.2-1.0) 0.5 mg/dL (0.2-1.0) Aspartate Amino Transf (AST/SGOT) 19 U/L (15-37) 20 U/L (15-37) Alanine Aminotransferase (ALT/SGPT) 6 U/L (16-63) 8 U/L (16-63) Alkaline Phosphatase 55 U/L (46-116) 54 U/L (46-116) Ammonia 18 mcmol/L (11-34) 12 mcmol/L (11-34) Troponin I Quantitative < 0.017 ng/mL (0.000-0.055) Total Protein 6.3 g/dL (6.4-8.2) 5.6 g/dL (6.4-8.2) Albumin 2.2 g/dL (3.4-5.0) 1.9 g/dL (3.4-5.0) Albumin/Globulin Ratio 0.5 (1.0-1.7) 0.5 (1.0-1.7) Procalcitonin 0.26 ng/mL (0.00-0.10) Thyroid Stimulating Hormone (TSH) 1.274 uIU/mL (0.358-3.74) Glucose (Fingerstick) 125 mg/dL (70-99) 134 mg/dL (70-99) Prothrombin Time 17.9 SEC (11.7-14.0) Prothromb Time International Ratio 1.5 (0.8-1.1) Activated Partial Thromboplast Time 41 SEC (24-38) Test 02/22/20 06:20 02/22/20 08:00 02/22/20 11:30 02/22/20 16:52 White Blood Count 6.9 x10^3/uL (4.0-11.0) Red Blood Count 3.13 x10^6/uL (4.30-5.70) Hemoglobin 7.9 g/dL (13.0-17.5) Hematocrit 25.2 % (39.0-53.0) Mean Corpuscular Volume 81 fL (79-100) Mean Corpuscular Hemoglobin 25 pg (25-35) Mean Corpuscular Hemoglobin Concent 31 g/dL (31-37) Red Cell Distribution Width 17.6 % (11.5-14.5) Platelet Count 267 x10^3/uL (140-400) Neutrophils (%) (Auto) 77 % (31-73) Lymphocytes (%) (Auto) 12 % (24-48) Monocytes (%) (Auto) 8 % (0-9) Eosinophils (%) (Auto) 2 % (0-3) Basophils (%) (Auto) 2 % (0-3) Neutrophils # (Auto) 5.3 x10^3/uL (1.8-7.7) Lymphocytes # (Auto) 0.8 x10^3/uL (1.0-4.8) Monocytes # (Auto) 0.5 x10^3/uL (0.0-1.1) Eosinophils # (Auto) 0.1 x10^3/uL (0.0-0.7) Basophils # (Auto) 0.1 x10^3/uL (0.0-0.2) O2 Saturation 96 % (92-99) Arterial Blood pH 7.54 (7.35-7.45) Arterial Blood pCO2 at Patient Temp 39 mmHg (35-46) Arterial Blood pO2 at Patient Temp 78 mmHg (65-108) Arterial Blood HCO3 32 mmol/L (21-28) Arterial Blood Base Excess 9 mmol/L (-3-3) FiO2 70/vent Glucose (Fingerstick) 130 mg/dL (70-99) 147 mg/dL (70-99) Test 02/23/20 00:11 02/23/20 06:30 02/23/20 08:00 Glucose (Fingerstick) 212 mg/dL (70-99) 192 mg/dL (70-99) White Blood Count 6.8 x10^3/uL (4.0-11.0) Red Blood Count 3.13 x10^6/uL (4.30-5.70) Hemoglobin 7.9 g/dL (13.0-17.5) Hematocrit 24.8 % (39.0-53.0) Mean Corpuscular Volume 79 fL (79-100) Mean Corpuscular Hemoglobin 25 pg (25-35) Mean Corpuscular Hemoglobin Concent 32 g/dL (31-37) Red Cell Distribution Width 17.5 % (11.5-14.5) Platelet Count 275 x10^3/uL (140-400) Sodium Level 143 mmol/L (136-145) Potassium Level 3.5 mmol/L (3.5-5.1) Chloride Level 104 mmol/L (98-107) Carbon Dioxide Level 34 mmol/L (21-32) Anion Gap 5 (6-14) Blood Urea Nitrogen 40 mg/dL (8-26) Creatinine 2.4 mg/dL (0.7-1.3) Estimated GFR (Cockcroft-Gault) 27.1 Glucose Level 211 mg/dL (70-99) Calcium Level 8.4 mg/dL (8.5-10.1) Magnesium Level 1.8 mg/dL (1.8-2.4) O2 Saturation 93 % (92-99) Arterial Blood pH 7.48 (7.35-7.45) Arterial Blood pCO2 at Patient Temp 43 mmHg (35-46) Arterial Blood pO2 at Patient Temp 68 mmHg (65-108) Arterial Blood HCO3 31 mmol/L (21-28) Arterial Blood Base Excess 7 mmol/L (-3-3) FiO2 60%+5 Laboratory Tests Test 02/22/20 16:52 02/23/20 00:11 02/23/20 06:30 02/23/20 08:00 Glucose (Fingerstick) 147 mg/dL (70-99) 212 mg/dL (70-99) 192 mg/dL (70-99) White Blood Count 6.8 x10^3/uL (4.0-11.0) Red Blood Count 3.13 x10^6/uL (4.30-5.70) Hemoglobin 7.9 g/dL (13.0-17.5) Hematocrit 24.8 % (39.0-53.0) Mean Corpuscular Volume 79 fL (79-100) Mean Corpuscular Hemoglobin 25 pg (25-35) Mean Corpuscular Hemoglobin Concent 32 g/dL (31-37) Red Cell Distribution Width 17.5 % (11.5-14.5) Platelet Count 275 x10^3/uL (140-400) Sodium Level 143 mmol/L (136-145) Potassium Level 3.5 mmol/L (3.5-5.1) Chloride Level 104 mmol/L (98-107) Carbon Dioxide Level 34 mmol/L (21-32) Anion Gap 5 (6-14) Blood Urea Nitrogen 40 mg/dL (8-26) Creatinine 2.4 mg/dL (0.7-1.3) Estimated GFR (Cockcroft-Gault) 27.1 Glucose Level 211 mg/dL (70-99) Calcium Level 8.4 mg/dL (8.5-10.1) Magnesium Level 1.8 mg/dL (1.8-2.4) O2 Saturation 93 % (92-99) Arterial Blood pH 7.48 (7.35-7.45) Arterial Blood pCO2 at Patient Temp 43 mmHg (35-46) Arterial Blood pO2 at Patient Temp 68 mmHg (65-108) Arterial Blood HCO3 31 mmol/L (21-28) Arterial Blood Base Excess 7 mmol/L (-3-3) FiO2 60%+5 Medications Active Scripts Medications Dose Route/Sig Max Daily Dose Days Date Category Dose Instructions D3-50 (Cholecalciferol (Vitamin D3)) 50,000 Unit Capsule 1,000 Unit PO DAILY 02/21/20 Reported Propranolol Hcl 40 Mg Tablet 40 Mg PO BID 02/21/20 Reported Furosemide 40 Mg Tablet 40 Mg PO BID 02/21/20 Reported Eliquis (Apixaban) 5 Mg Tablet 5 Mg PO BID 02/21/20 Reported Humalog (Insulin Lispro) 100 Unit/1 Ml Cartridge 100 Unit SQ TIDACHC 02/21/20 Reported Lantus (Insulin Glargine,Hum.rec.anlog) 100 Unit/1 Ml Vial 35 Unit SQ HS 02/21/20 Reported Hydrocodone-Apap 7.5-325 (Hydrocodone Bit/Acetaminophen) 1 Tab Tablet 1 Tab PO PRN Q6HRS PRN 02/21/20 Reported Glimepiride 1 Mg Tablet 1 Mg PO DAILY 02/21/20 Reported Carafate (Sucralfate) 1 Gm Tablet 1 Tab PO QID 30 11/11/19 Rx Protonix (Pantoprazole Sodium) 40 Mg Tablet.dr 40 Mg PO DAILYAC 30 11/11/19 Rx Miralax (Polyethylene Glycol 3350) 17 Gm Powd.pack 1 Packet PO DAILY 2 11/11/19 Rx dissolve in water Simvastatin 40 Mg Tablet 1 Tab PO QHS 11/06/19 Reported Fenofibrate 160 Mg Tablet 145 Mg PO HS 11/06/19 Reported Propranolol Hcl 40 Mg Tablet 1 Tab PO BID 11/06/19 Reported One-Daily Multi-Vitamin (Multivitamin) 1 Each Tablet 1 Tab PO DAILY 30 11/06/19 Reported Comments CXR IMPRESSION: 1.New right internal jugular central line with tip at the cavoatrial junction 2. Otherwise stable chest radiograph Impression . IMPRESSION: 1. Acute on chronic hypoxemic hypercapnic respiratory failure, required intubation 2. Paroxysmal atrial fibrillation. 3. History of deep venous thrombosis, PE, status post IVC filter placement. 4. History of anemia with history of recent gastrointestinal bleed. 5. Hypertension. 6. Hyperlipidemia. 7. Acute on chronic kidney disease. 8. Acute exacerbation of chronic obstructive pulmonary disease. 9. Acute on chronic metabolic toxic, possible toxic encephalopathy. Plan . Continue current vent support currently on 60% and PEEP of 6 Follow CXR and ABG, make changes as indicated-- Follow nephrology recommendations Follow cardiology recommendations--- continue diuresis COVID-19 negative Continue empiric antibiotic per ID Follow GI recs continue TF for nutritional support DVT/GI prophylaxis Critical care time 0900--0930 AM Discussed with RN and RT CHRISTIE ALMARAZ MD Feb 23, 2020 11:44
[2020-02-23] MEDS: INSULIN LISPRO 300 UNITS/3 ML VIAL. SQ SCH ×2 (13:00→18:00)
--- NOTE | 2020-02-23 15:23 | NUR ---
SS following up with discharge planning. SS reviewed pt chart and discussed with pt RN. Pt is currently on the vent at 60%. COVID19 negative. Pt on IV Micafungin, IV Zyvox, and IV Zosyn. SS notified that pt is from [facility] in [place] for short term skilled rehabilitation. SS notified that when pt is medically ready family would like placement at a different facility for rehab. Pt not stable at this time. SS will continue to follow for discharge planning.
[2020-02-23] MEDS: fentaNYL HIGH DOSE PCA 55 ML IV PRN (18:21)
[2020-02-23] MEDS: SIMVASTATIN 40 MG TABLET. PO SCH (20:35)
[2020-02-24] VITALS (23 sets, daily range): BP systolic 89–125; BP diastolic 43–64
[2020-02-24] MEDS: PIPERACILLIN/TAZOBACTAM 3.375 GM in IV NORMAL SALINE 50ML 50 ML IV SCH ×4 (00:25→18:36)
[2020-02-24] MEDS: INSULIN LISPRO 300 UNITS/3 ML VIAL. SQ SCH ×4 (00:26→18:36)
[2020-02-24] MEDS: PROPOFOL 100 ML IV PRN ×4 (00:27→21:09)
[2020-02-24] MEDS: IV NORMAL SALINE 1000ML BAG 1,000 ML IV SCH (04:45)
[2020-02-24 07:21] LABS: BASE EXCESS ABG 8 mmol/L (-3-3); HCO3 ABG 34 mmol/L (21-28); PCO2 ABG 54 mmHg (35-46); PO2 ABG 59 mmHg (65-108); SAT O2 ABG 89 % (92-99)
[2020-02-24 07:23] LABS: FIO2 ABG 60 VENT
[2020-02-24] MEDS ORDERED: MAGNESIUM SULFATE 2GM 50 ML IV PRN (08:15)
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
[2020-02-24] MEDS: ELECTROLYTE (ICU) PROTOCOL. MC SCH (09:00)
[2020-02-24] MEDS: PROPRANOLOL 40 MG TABLET. PO SCH ×2 (09:00→21:00)
--- NOTE | 2020-02-24 09:42 | RAD ---
EXAM: Chest, single view. HISTORY: Ventilatory support. COMPARISON: 02/21/2020 FINDINGS: A frontal view of the chest is obtained. There has been no change in diffuse central and lo wer lobe predominant interstitial and alveolar infiltrate. There are stable small to moderate pleural effusions. There is no pneumothorax. There is a stable prominent cardiac silhouette. There is an end otracheal tube within the mid trachea. There is nasogastric tube within the stomach. There is a right internal jugular catheter with the tip in the right atrium. IMPRESSION: 1. No stable change in diffuse mixed interstitial and alveolar infiltrate and small to moderate pleur al effusions. 2. Support lines and tubes, described above. Electronically signed by: Shadia Omalley MD (02/24/2020 9:39 AM) [facility]
[2020-02-24] MEDS: MULTIVITAMINS,THERAPEUTIC 5 ML ORAL LIQUID. PEG SCH (09:50)
[2020-02-24] MEDS: FUROSEMIDE 40 MG/4 ML VIAL. IVP SCH (09:50)
[2020-02-24] MEDS: FENOFIBRATE,MICRONIZED 134 MG CAPSULE PO SCH (09:50)
[2020-02-24] MEDS: PANTOPRAZOLE IV PUSH 40 MG VIAL. IVP SCH (09:50)
[2020-02-24] MEDS: CHOLECALCIFEROL (VITAMIN D3) 1,000 UNIT TABLET PO SCH (09:51)
[2020-02-24 09:52] LABS: CALCIUM 8.4 mg/dL (8.5-10.1); CREATININE 2.4 mg/dL (0.7-1.3); GFR 27.1; POTASSIUM 4.2 mmol/L (3.5-5.1)
--- NOTE | 2020-02-24 09:53 | PDOC ---
PROGRESS NOTES Date of Service: DATE: 02/24/20 TIME: 09:53 Chief Complaint Chief Complaint VTE Prophylaxis Ordered VTE Prophylaxis Devices: Yes VTE Pharmacological Prophylaxi: Yes Assessment/Plan Assessment/Plan impression 1. Acute hypoxic / severe hypercapnic respiratory failure, 2. Chronic obstructive pulmonary disease. 3. Type 2 diabetes mellitus with peripheral neuropathy. 4. Hypertension. 5. Hyperlipidemia. 6. atrial fibrillation 7. History of deep vein thrombosis and pulmonary emboli x 3 for which he was on Coumadin. has now an inferior vena cava filter. Placement of retrievable IVC filter 11/12 8. bilateral lower extremity //chronic venous stasis dermatitis 9. morbid obesity 10. PUI COVID 19 11. 4 mm non bleeding antral gastric ulcer and erosive gastritis (bx) 11/12 12. NATASHA 13, ISCHEMIC CVD CT HEAD 14. CODE STROKE IN ER 15. ACUTE METABOLIC ENCEPHALOPATHY 16, POSSIBLE ASPIRATION, PNEUMONIA, SHOCK 17. Distended gallbladder, pericholecystic fluid and gallstones. Findings are equivocal for acute cholecystitis. 18. Diffuse hepatic steatosis. plan icu bed pulm consult cardiology consult GI CONSULT NEPHROLOGY CONSULT Neurology consult ID CONSULT ECHO 34 MIN CC TIME History of Present Illness History of Present Illness Identification/Chief Complaint Chief Complaint RESP FAILURE, TRANSFER [facility] covid 19 rapid neg History of Present Illness History of Present Illness 69 yr old male, transfer from [facility] due to AMS, required vent support for respiratory failure BECAME HYPOXIC 0330, INTUBATED IN ER, WAS OBTUNDED, HAD ELEVATED D-DIMER BUN 32, CR 2.1 UDS NEG, PRO-BNP 5556 WAS CODE STROKE ON PRESENTATION DUE TO AMS RESIDENT OF [facility] , admitted by DR CASTANEDA HERE ON NOV 2019 D DIMER 1.82 BUT RENAL FX PROHIBITS CTA CHEST, DEFER TO PULM poor candidate for long-term anticoagulation. WAS outpatient referral for [facility] by cardiology Past Medical History Past Medical History PAST MEDICAL HISTORY: Positive for diabetes mellitus, hypertension, obesity, obstructive lung disease, hyperlipidemia, peripheral vascular disease, neuropathy, pulmonary embolism, venous stasis dermatitis. SOCIAL HISTORY: Negative for smoking, alcohol, or illicit drug use. ALLERGIES: LISTED ALLERGIC TO INSULIN AND CHLORDIAZEPOXIDE. CURRENT MEDICATIONS: Reviewed. Cardiovascular: AFIB, HTN, Hyperlipidemia Pulmonary: COPD, Pulmonary embolus GI: GERD Heme/Onc: No pertinent hx Hepatobiliary: No pertinent hx Psych: No pertinent hx Musculoskeletal: Osteoarthritis Rheumatologic: No pertinent hx Infectious disease: No pertinent hx Renal/: Chronic renal insuff Endocrine: Diabetes Past Surgical History Past Surgical History: Other Family History Family History: Diabetes, Hypertension Social History Smoke: <1 pack per day ALCOHOL: rare Drugs: None Current Medications Vitals Vitals Vital Signs Date Time Temp Pulse Resp B/P (MAP) Pulse Ox O2 Delivery O2 Flow Rate FiO2 02/24/20 08:00 Mechanical Ventilator 02/24/20 07:14 92 02/24/20 06:00 60 20 94/49 (64) 02/24/20 04:00 98.2 98.2 Physical Exam Physical Exam GENERAL: Intubated, sedated male in COVID isolation. HEENT: Normocephalic, atraumatic, anicteric. LUNGS: Clear anteriorly. HEART: S1, S2. ABDOMEN: Obese. Bowel sounds present, nondistended. GENITOURINARY: Scrotal swelling. Yeast in groin [place] in place. EXTREMITIES: Bilateral venous stasis changes present. Wounds present over both lower extremities, hyperkeratotic skin, no cyanosis, no clubbing. DERMATOLOGIC: Warm, dry. No generalized rash except for above. Right internal jugular vein in place. General: Other (sedated ) Heart: Regular rate, Other (distant heart tones ) Lungs: Clear Abdomen: Other (obese ) Extremities: Other (1+ bilateral LE edema. Chronic bilateral LE venous stasis dermatitis ) Labs LABS EXAM: Chest, single view. HISTORY: Ventilatory support. COMPARISON: 02/21/2020 FINDINGS: A frontal view of the chest is obtained. There has been no change in d iffuse central and lower lobe predominant interstitial and alveolar infiltrate. There are stable small to moderate pleural effusions. There is no pneumothorax. There is a stable prominent cardiac silhouette. There is an endotracheal tube within the mid trachea. There is nasogastric tube within the stomach. There is a right internal jugular catheter with the tip in the right atrium. IMPRESSION: 1. No stable change in diffuse mixed interstitial and alveolar infiltrate and small to moderate pleural effusions. 2. Support lines and tubes, described above. Electronically signed by: Shadia Fowler MD (02/24/2020 9:39 AM) [facility] DICTATED and SIGNED BY: SHADIA FOWLER MD DATE: 02/24/20 [id number] Laboratory Tests Test 02/23/20 12:58 02/24/20 00:21 02/24/20 05:43 02/24/20 07:19 Glucose (Fingerstick) 212 mg/dL (70-99) 225 mg/dL (70-99) 193 mg/dL (70-99) O2 Saturation 89 % (92-99) Arterial Blood pH 7.41 (7.35-7.45) Arterial Blood pCO2 at Patient Temp 54 mmHg (35-46) Arterial Blood pO2 at Patient Temp 59 mmHg (65-108) Arterial Blood HCO3 34 mmol/L (21-28) Arterial Blood Base Excess 8 mmol/L (-3-3) FiO2 60 vent Comment Review of Relevant I have reviewed the following items megan (where applicable) has been applied. Labs Laboratory Tests Test 02/22/20 11:30 02/22/20 16:52 02/23/20 00:11 02/23/20 06:30 Glucose (Fingerstick) 130 mg/dL (70-99) 147 mg/dL (70-99) 212 mg/dL (70-99) 192 mg/dL (70-99) White Blood Count 6.8 x10^3/uL (4.0-11.0) Red Blood Count 3.13 x10^6/uL (4.30-5.70) Hemoglobin 7.9 g/dL (13.0-17.5) Hematocrit 24.8 % (39.0-53.0) Mean Corpuscular Volume 79 fL (79-100) Mean Corpuscular Hemoglobin 25 pg (25-35) Mean Corpuscular Hemoglobin Concent 32 g/dL (31-37) Red Cell Distribution Width 17.5 % (11.5-14.5) Platelet Count 275 x10^3/uL (140-400) Sodium Level 143 mmol/L (136-145) Potassium Level 3.5 mmol/L (3.5-5.1) Chloride Level 104 mmol/L (98-107) Carbon Dioxide Level 34 mmol/L (21-32) Anion Gap 5 (6-14) Blood Urea Nitrogen 40 mg/dL (8-26) Creatinine 2.4 mg/dL (0.7-1.3) Estimated GFR (Cockcroft-Gault) 27.1 Glucose Level 211 mg/dL (70-99) Calcium Level 8.4 mg/dL (8.5-10.1) Magnesium Level 1.8 mg/dL (1.8-2.4) Test 02/23/20 08:00 02/23/20 12:58 02/24/20 00:21 02/24/20 05:43 O2 Saturation 93 % (92-99) Arterial Blood pH 7.48 (7.35-7.45) Arterial Blood pCO2 at Patient Temp 43 mmHg (35-46) Arterial Blood pO2 at Patient Temp 68 mmHg (65-108) Arterial Blood HCO3 31 mmol/L (21-28) Arterial Blood Base Excess 7 mmol/L (-3-3) FiO2 60%+5 Glucose (Fingerstick) 212 mg/dL (70-99) 225 mg/dL (70-99) 193 mg/dL (70-99) Test 02/24/20 07:19 O2 Saturation 89 % (92-99) Arterial Blood pH 7.41 (7.35-7.45) Arterial Blood pCO2 at Patient Temp 54 mmHg (35-46) Arterial Blood pO2 at Patient Temp 59 mmHg (65-108) Arterial Blood HCO3 34 mmol/L (21-28) Arterial Blood Base Excess 8 mmol/L (-3-3) FiO2 60 vent Laboratory Tests Test 02/23/20 12:58 02/24/20 00:21 02/24/20 05:43 02/24/20 07:19 Glucose (Fingerstick) 212 mg/dL (70-99) 225 mg/dL (70-99) 193 mg/dL (70-99) O2 Saturation 89 % (92-99) Arterial Blood pH 7.41 (7.35-7.45) Arterial Blood pCO2 at Patient Temp 54 mmHg (35-46) Arterial Blood pO2 at Patient Temp 59 mmHg (65-108) Arterial Blood HCO3 34 mmol/L (21-28) Arterial Blood Base Excess 8 mmol/L (-3-3) FiO2 60 vent Microbiology 02/21/20 Blood Culture - Preliminary, Resulted NO GROWTH AFTER 2 DAYS Medications Current Medications Sodium Chloride (Normal Saline Flush) 3 ml QSHIFT PRN IV AFTER MEDS AND BLOOD DRAWS; Start 02/21/20 at 06:45 Sodium Chloride 1,000 ml @ 100 mls/hr Q10H IV Last administered on 02/24/20at 04:45; Start 02/21/20 at 06:45; Stop 02/24/20 at 08:11; Status DC Fentanyl Citrate 30 ml @ 0 mls/hr CONT PRN IV SEE PROTOCOL Last administered on 02/21/20at 07:26; Start 02/21/20 at 06:45; Stop 02/21/20 at 10:59; Status DC Propofol 100 ml @ 0 mls/hr CONT PRN IV PER PROTOCOL Last administered on 02/24/20at 00:27; Start 02/21/20 at 06:45 Fentanyl Citrate (Fentanyl 2ml Vial) 25 mcg PRN Q1HR PRN IV SEE COMMENTS; Start 02/21/20 at 06:45 Fentanyl Citrate (Fentanyl 2ml Vial) 50 mcg PRN Q1HR PRN IV SEE COMMENTS; Start 02/21/20 at 06:45 Famotidine (Pepcid Vial) 20 mg BID IVP Last administered on 02/21/20at 10:23; Start 02/21/20 at 09:00; Stop 02/21/20 at 12:53; Status DC Morphine Sulfate (Morphine Sulfate) 2 mg PRN Q1HR PRN IV SEE COMMENTS.; Start 02/21/20 at 06:45; Stop 02/23/20 at 06:20; Status DC Morphine Sulfate (Morphine Sulfate) 4 mg PRN Q1HR PRN IV SEE COMMENTS.; Start 02/21/20 at 06:45; Stop 02/23/20 at 06:20; Status DC Midazolam HCl 100 ml @ 0 mls/hr CONT PRN IV SEE PROTOCOL Last administered on 02/23/20at 21:56; Start 02/21/20 at 06:45 Fentanyl Citrate 55 ml @ 0 mls/hr CONT PRN IV PAIN/SEDATION Last administered on 02/23/20at 18:21; Start 02/21/20 at 11:00 Ondansetron HCl (Zofran) 4 mg PRN Q6HRS PRN IVP NAUSEA/VOMITING; Start 02/21/20 at 12:15 Famotidine (Pepcid Vial) 20 mg BID IVP ; Start 02/21/20 at 13:00; Stop 02/21/20 at 12:53; Status DC Info (Icu Electrolyte Protocol) 1 ea DAILY MC Last administered on 02/23/20at 09:00; Start 02/22/20 at 09:00 Sodium Chloride (Normal Saline Flush) 3 ml QSHIFT PRN IV AFTER MEDS AND BLOOD DRAWS; Start 02/21/20 at 12:15; Status Cancel Bisacodyl (Dulcolax Supp) 10 mg PRN DAILY PRN CO CONSTIPATION; Start 02/21/20 at 12:15 Piperacillin Sod/ Tazobactam Sod (Zosyn Per Pharmacy) 1 each PRN DAILY PRN MC SEE COMMENTS; Start 02/21/20 at 12:15 Meropenem 500 mg/ Sodium Chloride 50 ml @ 100 mls/hr Q8HRS IV Last administered on 02/22/20at 05:38; Start 02/21/20 at 14:00; Stop 02/22/20 at 08:19; Status DC Pantoprazole Sodium (PROTONIX VIAL for IV PUSH) 40 mg DAILYAC IVP ; Start 02/22/20 at 16:30; Status Cancel Furosemide (Lasix) 40 mg 1X ONCE IVP Last administered on 02/21/20at 16:24; Start 02/21/20 at 15:00; Stop 02/21/20 at 15:01; Status DC Piperacillin Sod/ Tazobactam Sod 3.375 gm/Sodium Chloride 50 ml @ 100 mls/hr Q6HRS IV Last administered on 02/24/20at 05:42; Start 02/21/20 at 18:00 Simvastatin (Zocor) 40 mg QHS PO Last administered on 02/23/20at 20:35; Start 02/21/20 at 21:00 Propranolol HCl (Inderal) 40 mg BID PO ; Start 02/21/20 at 21:00; Status Cancel Apixaban (Eliquis) 5 mg BID PO Last administered on 02/22/20at 08:46; Start 02/21/20 at 21:30; Stop 02/22/20 at 09:28; Status DC Pantoprazole Sodium (Protonix) 40 mg DAILYAC PO ; Start 02/22/20 at 07:30; Stop 02/21/20 at 22:27; Status DC Propranolol HCl (Inderal) 40 mg BID PO Last administered on 02/22/20at 21:03; Start 02/21/20 at 21:30 Sucralfate (Carafate) 1 gm QID PO ; Start 02/21/20 at 21:30; Stop 02/21/20 at 22:23; Status DC Vitamin D (Vitamin D3) 1,000 unit DAILY PO Last administered on 02/24/20 09:51; Start 02/22/20 at 09:00 Fenofibrate (Lofibra) 134 mg DAILY PO Last administered on 02/24/20 09:50; Start 02/22/20 at 09:00 Multivitamins (Thera M Plus) 1 tab DAILY PO ; Start 02/22/20 at 09:00; Stop 02/22/20 at 08:44; Status DC Pantoprazole Sodium (PROTONIX VIAL for IV PUSH) 40 mg DAILY IVP Last administered on 02/24/20 09:50; Start 02/22/20 at 09:00 Info (FLU VACCINE SCREEN per RX) 1 each 1X ONCE MC ; Start 02/22/20 at 00:00; Stop 02/22/20 at 00:01; Status UNV Influenza Virus Vaccine Quadrival (Fluzone Quad Syringe) 0.5 ml ONCE ONCE VAX IM ; Start 02/22/20 at 09:00; Stop 02/22/20 at 09:01; Status DC Info (Anti-Coagulation Monitoring By Pharmacy) 1 each PRN DAILY PRN MC SEE COMMENTS; Start 02/22/20 at 08:15 Linezolid/Dextrose 300 ml @ 300 mls/hr Q12HR IV Last administered on 02/24/20 09:51; Start 02/22/20 at 09:00 Multivitamins/ Minerals Therapeutic (Centrum Multivit-Mineral Liq) 5 ml DAILY PEG Last administered on 02/24/20 09:50; Start 02/22/20 at 09:00 Furosemide (Lasix) 40 mg DAILY IVP Last administered on 02/24/20 09:50; Start 02/22/20 at 10:00 Micafungin Sodium 100 mg/Dextrose 100 ml @ 100 mls/hr Q24H IV Last administered on 02/23/20at 08:18; Start 02/22/20 at 12:00 Linezolid/Dextrose 300 ml @ 300 mls/hr Q12HR IV ; Start 02/22/20 at 11:30; Stop 02/22/20 at 11:20; Status DC Potassium Chloride/Water 100 ml @ 100 mls/hr Q1H IV Last administered on 02/23/20at 09:18; Start 02/23/20 at 08:00; Stop 02/23/20 at 09:59; Status DC Magnesium Sulfate 50 ml @ 25 mls/hr 1X ONCE IV Last administered on 02/23/20at 08:17; Start 02/23/20 at 08:00; Stop 02/23/20 at 09:59; Status DC Insulin Human Lispro (HumaLOG) 0-5 UNITS Q6HRS SQ Last administered on 02/24/20at 05:46; Start 02/23/20 at 12:00 Dextrose (Dextrose 50%-Water Syringe) 12.5 gm PRN Q15MIN PRN IV SEE COMMENTS; Start 02/23/20 at 08:00 Magnesium Sulfate 50 ml @ 25 mls/hr PRN DAILY PRN IV for Mag < 1.7 on am labs; Start 02/24/20 at 08:15 Active Scripts Active Carafate (Sucralfate) 1 Gm Tablet 1 Tab PO QID 30 Days Protonix (Pantoprazole Sodium) 40 Mg Tablet.dr 40 Mg PO DAILYAC 30 Days Miralax (Polyethylene Glycol 3350) 17 Gm Powd.pack 1 Packet PO DAILY 2 Days dissolve in water Reported D3-50 (Cholecalciferol (Vitamin D3)) 50,000 Unit Capsule 1,000 Unit PO DAILY Propranolol Hcl 40 Mg Tablet 40 Mg PO BID Furosemide 40 Mg Tablet 40 Mg PO BID Eliquis (Apixaban) 5 Mg Tablet 5 Mg PO BID Humalog (Insulin Lispro) 100 Unit/1 Ml Cartridge 100 Unit SQ TIDACHC Lantus (Insulin Glargine,Hum.rec.anlog) 100 Unit/1 Ml Vial 35 Unit SQ HS Hydrocodone-Apap 7.5-325 (Hydrocodone Bit/Acetaminophen) 1 Tab Tablet 1 Tab PO PRN Q6HRS PRN Glimepiride 1 Mg Tablet 1 Mg PO DAILY Simvastatin 40 Mg Tablet 1 Tab PO QHS Fenofibrate 160 Mg Tablet 145 Mg PO HS Propranolol Hcl 40 Mg Tablet 1 Tab PO BID One-Daily Multi-Vitamin (Multivitamin) 1 Each Tablet 1 Tab PO DAILY 30 Days Vitals/I & O Vital Sign - Last 24 Hours 02/23/20 02/23/20 02/23/20 02/23/20 10:00 11:00 11:25 12:00 Pulse 63 64 62 Resp 20 20 B/P (MAP) 83/39 (54) 79/43 (55) 83/44 (57) Pulse Ox 90 91 93 O2 Delivery Ventilator Ventilator Ventilator 02/23/20 02/23/20 02/23/20 02/23/20 12:00 14:06 15:21 16:20 Pulse 62 Resp 20 B/P (MAP) 88/46 (60) Pulse Ox 93 91 O2 Delivery Mechanical Ventilator Ventilator Ventilator Mechanical Ventilator 02/23/20 02/23/20 02/23/20 02/23/20 16:21 17:00 18:21 18:36 Temp 97.9 97.9 Pulse 61 61 62 Resp 20 20 20 B/P (MAP) 85/41 (56) 91/49 (63) 91/49 (63) Pulse Ox 91 95 95 O2 Delivery Ventilator Ventilator Ventilator 02/23/20 02/23/20 02/23/20 02/23/20 19:00 19:13 20:00 20:00 Temp 98.2 98.2 Pulse 62 63 Resp 22 20 B/P (MAP) 96/48 (64) 94/49 (64) Pulse Ox 94 95 93 O2 Delivery Ventilator Mechanical Ventilator Ventilator 02/23/20 02/23/20 02/23/20 02/23/20 20:10 20:35 21:00 22:00 Pulse 63 62 61 Resp 20 20 B/P (MAP) 94/49 96/49 (65) 97/58 (71) Pulse Ox 93 93 93 O2 Delivery Ventilator Ventilator Ventilator 02/23/20 02/23/20 02/23/20 02/23/20 23:00 23:36 23:59 23:59 Temp 98.1 98.1 Pulse 61 62 Resp 20 21 B/P (MAP) 91/48 (62) 96/50 (65) Pulse Ox 92 92 92 O2 Delivery Ventilator Ventilator Ventilator Mechanical Ventilator 02/24/20 02/24/20 02/24/20 02/24/20 01:00 02:00 03:33 04:00 Temp 98.2 98.2 Pulse 61 59 60 62 Resp 22 22 20 20 B/P (MAP) 89/43 (58) 97/53 (68) 96/51 (66) 99/52 (68) Pulse Ox 95 95 95 94 O2 Delivery Ventilator Ventilator Ventilator Ventilator 02/24/20 02/24/20 02/24/20 02/24/20 04:00 04:05 05:00 06:00 Pulse 60 60 Resp 20 20 B/P (MAP) 90/62 (71) 94/49 (64) Pulse Ox 92 91 91 O2 Delivery Mechanical Ventilator Ventilator Ventilator Ventilator 02/24/20 02/24/20 07:14 08:00 Pulse Ox 92 O2 Delivery Ventilator Mechanical Ventilator Intake and Output 02/23/20 02/23/20 02/24/20 15:00 23:00 07:00 Intake Total 950 ml 3241.5 ml 2290 ml Output Total 250 ml 300 ml 225 ml Balance 700 ml 2941.5 ml 2065 ml Justicifation of Admission Dx: Justifications for Admission: Justification of Admission Dx: Yes RHONDA CORREIA MD Feb 24, 2020 09:53
--- NOTE | 2020-02-24 10:42 | PDOC ---
PULMONARY PROGRESS NOTES DATE: 02/24/20 TIME: 10:40 Subjective On vent support 60%, and PEEP of 5 no overnight concerns from nursing Vitals Vital Signs Date Time Temp Pulse Resp B/P (MAP) Pulse Ox O2 Delivery O2 Flow Rate FiO2 02/24/20 08:00 Mechanical Ventilator 02/24/20 07:14 92 02/24/20 06:00 60 20 94/49 (64) 02/24/20 04:00 98.2 98.2 Comments intubated/sedated Lungs: Clear Cardiovascular: S1, S2 Abdomen: Other Extremities: Other (BLE edema ) Skin: Warm, Dry Labs Laboratory Tests Test 02/22/20 11:30 02/22/20 16:52 02/23/20 00:11 02/23/20 06:30 Glucose (Fingerstick) 130 mg/dL (70-99) 147 mg/dL (70-99) 212 mg/dL (70-99) 192 mg/dL (70-99) White Blood Count 6.8 x10^3/uL (4.0-11.0) Red Blood Count 3.13 x10^6/uL (4.30-5.70) Hemoglobin 7.9 g/dL (13.0-17.5) Hematocrit 24.8 % (39.0-53.0) Mean Corpuscular Volume 79 fL (79-100) Mean Corpuscular Hemoglobin 25 pg (25-35) Mean Corpuscular Hemoglobin Concent 32 g/dL (31-37) Red Cell Distribution Width 17.5 % (11.5-14.5) Platelet Count 275 x10^3/uL (140-400) Sodium Level 143 mmol/L (136-145) Potassium Level 3.5 mmol/L (3.5-5.1) Chloride Level 104 mmol/L (98-107) Carbon Dioxide Level 34 mmol/L (21-32) Anion Gap 5 (6-14) Blood Urea Nitrogen 40 mg/dL (8-26) Creatinine 2.4 mg/dL (0.7-1.3) Estimated GFR (Cockcroft-Gault) 27.1 Glucose Level 211 mg/dL (70-99) Calcium Level 8.4 mg/dL (8.5-10.1) Magnesium Level 1.8 mg/dL (1.8-2.4) Test 02/23/20 08:00 02/23/20 12:58 02/24/20 00:21 02/24/20 05:43 O2 Saturation 93 % (92-99) Arterial Blood pH 7.48 (7.35-7.45) Arterial Blood pCO2 at Patient Temp 43 mmHg (35-46) Arterial Blood pO2 at Patient Temp 68 mmHg (65-108) Arterial Blood HCO3 31 mmol/L (21-28) Arterial Blood Base Excess 7 mmol/L (-3-3) FiO2 60%+5 Glucose (Fingerstick) 212 mg/dL (70-99) 225 mg/dL (70-99) 193 mg/dL (70-99) Test 02/24/20 07:19 02/24/20 09:24 O2 Saturation 89 % (92-99) Arterial Blood pH 7.41 (7.35-7.45) Arterial Blood pCO2 at Patient Temp 54 mmHg (35-46) Arterial Blood pO2 at Patient Temp 59 mmHg (65-108) Arterial Blood HCO3 34 mmol/L (21-28) Arterial Blood Base Excess 8 mmol/L (-3-3) FiO2 60 vent Sodium Level 143 mmol/L (136-145) Potassium Level 4.2 mmol/L (3.5-5.1) Chloride Level 105 mmol/L (98-107) Carbon Dioxide Level 33 mmol/L (21-32) Anion Gap 5 (6-14) Blood Urea Nitrogen 48 mg/dL (8-26) Creatinine 2.4 mg/dL (0.7-1.3) Estimated GFR (Cockcroft-Gault) 27.1 Glucose Level 199 mg/dL (70-99) Calcium Level 8.4 mg/dL (8.5-10.1) Iron Level 28 ug/dL (65-175) Total Iron Binding Capacity 259 ug/dL (250-450) Iron Saturation 11 % (15-34) Ferritin 149 ng/mL (26-388) Laboratory Tests Test 02/23/20 12:58 02/24/20 00:21 02/24/20 05:43 02/24/20 07:19 Glucose (Fingerstick) 212 mg/dL (70-99) 225 mg/dL (70-99) 193 mg/dL (70-99) O2 Saturation 89 % (92-99) Arterial Blood pH 7.41 (7.35-7.45) Arterial Blood pCO2 at Patient Temp 54 mmHg (35-46) Arterial Blood pO2 at Patient Temp 59 mmHg (65-108) Arterial Blood HCO3 34 mmol/L (21-28) Arterial Blood Base Excess 8 mmol/L (-3-3) FiO2 60 vent Test 02/24/20 09:24 Sodium Level 143 mmol/L (136-145) Potassium Level 4.2 mmol/L (3.5-5.1) Chloride Level 105 mmol/L (98-107) Carbon Dioxide Level 33 mmol/L (21-32) Anion Gap 5 (6-14) Blood Urea Nitrogen 48 mg/dL (8-26) Creatinine 2.4 mg/dL (0.7-1.3) Estimated GFR (Cockcroft-Gault) 27.1 Glucose Level 199 mg/dL (70-99) Calcium Level 8.4 mg/dL (8.5-10.1) Iron Level 28 ug/dL (65-175) Total Iron Binding Capacity 259 ug/dL (250-450) Iron Saturation 11 % (15-34) Ferritin 149 ng/mL (26-388) Medications Active Scripts Medications Dose Route/Sig Max Daily Dose Days Date Category Dose Instructions D3-50 (Cholecalciferol (Vitamin D3)) 50,000 Unit Capsule 1,000 Unit PO DAILY 02/21/20 Reported Propranolol Hcl 40 Mg Tablet 40 Mg PO BID 02/21/20 Reported Furosemide 40 Mg Tablet 40 Mg PO BID 02/21/20 Reported Eliquis (Apixaban) 5 Mg Tablet 5 Mg PO BID 02/21/20 Reported Humalog (Insulin Lispro) 100 Unit/1 Ml Cartridge 100 Unit SQ TIDACHC 02/21/20 Reported Lantus (Insulin Glargine,Hum.rec.anlog) 100 Unit/1 Ml Vial 35 Unit SQ HS 02/21/20 Reported Hydrocodone-Apap 7.5-325 (Hydrocodone Bit/Acetaminophen) 1 Tab Tablet 1 Tab PO PRN Q6HRS PRN 02/21/20 Reported Glimepiride 1 Mg Tablet 1 Mg PO DAILY 02/21/20 Reported Carafate (Sucralfate) 1 Gm Tablet 1 Tab PO QID 30 11/11/19 Rx Protonix (Pantoprazole Sodium) 40 Mg Tablet.dr 40 Mg PO DAILYAC 30 9/18/20 Rx Miralax (Polyethylene Glycol 3350) 17 Gm Powd.pack 1 Packet PO DAILY 2 11/11/19 Rx dissolve in water Simvastatin 40 Mg Tablet 1 Tab PO QHS 11/06/19 Reported Fenofibrate 160 Mg Tablet 145 Mg PO HS 11/06/19 Reported Propranolol Hcl 40 Mg Tablet 1 Tab PO BID 11/06/19 Reported One-Daily Multi-Vitamin (Multivitamin) 1 Each Tablet 1 Tab PO DAILY 30 11/06/19 Reported Comments CXR 02/24/20 IMPRESSION: 1. No stable change in diffuse mixed interstitial and alveolar infiltrate and small to moderate pleural effusions. 2. Support lines and tubes, described above. Impression . IMPRESSION: 1. Acute on chronic hypoxemic hypercapnic respiratory failure, required intubation 2. Paroxysmal atrial fibrillation. 3. History of deep venous thrombosis, PE, status post IVC filter placement. 4. History of anemia with history of recent gastrointestinal bleed. 5. Hypertension. 6. Hyperlipidemia. 7. Acute on chronic kidney disease. 8. Acute exacerbation of chronic obstructive pulmonary disease. 9. Acute on chronic metabolic toxic, possible toxic encephalopathy. Plan . Continue current vent support currently on 60% and PEEP of 6 Follow CXR and ABG, make changes as indicated Proceed with sedation vacation today to assess neurological status Follow nephrology recommendations Follow cardiology recommendations--- continue diuresis COVID-19 negative Continue empiric antibiotic per ID, Follow cultures NGTD Follow GI recs continue TF for nutritional support DVT/GI prophylaxis Critical care time 0700--0730 AM Discussed with RN and RT CHRISTIE ALMARAZ MD Feb 24, 2020 10:42
--- NOTE | 2020-02-24 11:45 | PDOC ---
GI PROGRESS NOTES Date of Service: Date/Time DATE: 02/24/20 TIME: 11:44 Subjective Subjective Sedated on ventilator Objective Vitals Vital Signs Date Time Temp Pulse Resp B/P (MAP) Pulse Ox O2 Delivery O2 Flow Rate FiO2 02/24/20 11:20 94 Ventilator 02/24/20 11:00 98.0 68 20 118/63 (81) 96 Ventilator 98.0 02/24/20 10:00 68 20 125/64 (84) 97 Ventilator 02/24/20 09:00 64 20 105/51 (69) 94 Ventilator 02/24/20 08:00 62 20 111/56 (74) 95 Ventilator 02/24/20 08:00 Mechanical Ventilator 02/24/20 07:14 92 Ventilator 02/24/20 07:00 97.7 62 20 105/51 (69) 93 Ventilator 97.7 02/24/20 06:00 60 20 94/49 (64) 91 Ventilator 02/24/20 05:00 60 20 90/62 (71) 91 Ventilator 02/24/20 04:05 92 Ventilator 02/24/20 04:00 Mechanical Ventilator 02/24/20 04:00 98.2 62 20 99/52 (68) 94 Ventilator 98.2 02/24/20 03:33 60 20 96/51 (66) 95 Ventilator 02/24/20 02:00 59 22 97/53 (68) 95 Ventilator 02/24/20 01:00 61 22 89/43 (58) 95 Ventilator 02/23/20 23:59 Mechanical Ventilator 02/23/20 23:59 98.1 62 21 96/50 (65) 92 Ventilator 98.1 02/23/20 23:36 92 Ventilator 02/23/20 23:00 61 20 91/48 (62) 92 Ventilator 02/23/20 22:00 61 20 97/58 (71) 93 Ventilator 02/23/20 21:00 62 20 96/49 (65) 93 Ventilator 02/23/20 20:35 63 94/49 02/23/20 20:10 93 Ventilator 02/23/20 20:00 63 20 94/49 (64) 93 Ventilator 02/23/20 20:00 Mechanical Ventilator 02/23/20 19:13 95 02/23/20 19:00 98.2 62 22 96/48 (64) 94 Ventilator 98.2 02/23/20 18:36 62 91/49 (63) 02/23/20 18:21 20 95 Ventilator 02/23/20 17:00 97.9 61 20 91/49 (63) 95 Ventilator 97.9 02/23/20 16:21 61 20 85/41 (56) 91 Ventilator 02/23/20 16:20 Mechanical Ventilator 02/23/20 15:21 91 Ventilator 02/23/20 14:06 62 20 88/46 (60) 93 Ventilator 02/23/20 12:00 Mechanical Ventilator 02/23/20 12:00 62 20 83/44 (57) 93 Ventilator Labs Labs Laboratory Tests Test 02/23/20 12:58 02/24/20 00:21 02/24/20 05:43 02/24/20 07:19 Glucose (Fingerstick) 212 mg/dL (70-99) 225 mg/dL (70-99) 193 mg/dL (70-99) O2 Saturation 89 % (92-99) Arterial Blood pH 7.41 (7.35-7.45) Arterial Blood pCO2 at Patient Temp 54 mmHg (35-46) Arterial Blood pO2 at Patient Temp 59 mmHg (65-108) Arterial Blood HCO3 34 mmol/L (21-28) Arterial Blood Base Excess 8 mmol/L (-3-3) FiO2 60 vent Test 02/24/20 09:24 Sodium Level 143 mmol/L (136-145) Potassium Level 4.2 mmol/L (3.5-5.1) Chloride Level 105 mmol/L (98-107) Carbon Dioxide Level 33 mmol/L (21-32) Anion Gap 5 (6-14) Blood Urea Nitrogen 48 mg/dL (8-26) Creatinine 2.4 mg/dL (0.7-1.3) Estimated GFR (Cockcroft-Gault) 27.1 Glucose Level 199 mg/dL (70-99) Calcium Level 8.4 mg/dL (8.5-10.1) Iron Level 28 ug/dL (65-175) Total Iron Binding Capacity 259 ug/dL (250-450) Iron Saturation 11 % (15-34) Ferritin 149 ng/mL (26-388) Physical Exam Physical Exam Sedated Chest few rhonchi bilaterally Abdomen mildly distended, decreased but present bowel sounds, no obvious masses. Assessment Assessment Respiratory failure on ventilator. History of confusion. History of cirrhosis. History of peptic ulcer disease but no evidence for active bleeding. Plan Plan Continue supportive care. Justicifation of Admission Dx: Justifications for Admission: Justification of Admission Dx: Yes LISSY ARTEAGA MD Feb 24, 2020 11:45
--- NOTE | 2020-02-24 12:27 | PDOC ---
PROGRESS NOTES Date of Service DATE: 02/24/20 TIME: 12:24 Subjective Subjective Patient seen and evaluated Objective Objective Vital Signs Date Time Temp Pulse Resp B/P (MAP) Pulse Ox O2 Delivery O2 Flow Rate FiO2 02/24/20 11:20 94 Ventilator 02/24/20 11:00 98.0 68 20 118/63 (81) 98.0 Intake and Output 02/24/20 07:00 Intake Total 6481.5 ml Output Total 850 ml Balance 5631.5 ml Intake IV Total 4245.5 ml Tube Feeding 1636 ml Blood Product IV Normal Saline Flush 150 ml Other 450 ml Output Urine Total 850 ml # Voids 1 Physical Exam Abdomen: Normal bowel sounds Heart: Regular rate General: Other (Intubated.) Lungs: Other (Decreased breath sounds) Assessment Assessment Acute respiratory failure with AECOPD, a/c CHF, and possible PNA, intubated. The patient's remains on a ventilator. He is followed by the pulmonary service. Acute on chronic diastolic CHF; EF and WM nml. Mild diuresis. Creatinine 2.4. PAFIB; Maintaining SR. holding Eliquis. Chronic anemia, recent GIB, PUD (11/12). OAC discontinued at that time. Hx DVT/PE. S/p IVC filter Hypertension: marginal but controlled Hyperlipidemia CKD: Creatinine at 2.4. Nephrology following Moderate pulmonary HTN Comment Review of Relevant I have reviewed the following items megan (where applicable) has been applied. Labs Laboratory Tests Test 02/22/20 16:52 02/23/20 00:11 02/23/20 06:30 02/23/20 08:00 Glucose (Fingerstick) 147 mg/dL (70-99) 212 mg/dL (70-99) 192 mg/dL (70-99) White Blood Count 6.8 x10^3/uL (4.0-11.0) Red Blood Count 3.13 x10^6/uL (4.30-5.70) Hemoglobin 7.9 g/dL (13.0-17.5) Hematocrit 24.8 % (39.0-53.0) Mean Corpuscular Volume 79 fL (79-100) Mean Corpuscular Hemoglobin 25 pg (25-35) Mean Corpuscular Hemoglobin Concent 32 g/dL (31-37) Red Cell Distribution Width 17.5 % (11.5-14.5) Platelet Count 275 x10^3/uL (140-400) Sodium Level 143 mmol/L (136-145) Potassium Level 3.5 mmol/L (3.5-5.1) Chloride Level 104 mmol/L (98-107) Carbon Dioxide Level 34 mmol/L (21-32) Anion Gap 5 (6-14) Blood Urea Nitrogen 40 mg/dL (8-26) Creatinine 2.4 mg/dL (0.7-1.3) Estimated GFR (Cockcroft-Gault) 27.1 Glucose Level 211 mg/dL (70-99) Calcium Level 8.4 mg/dL (8.5-10.1) Magnesium Level 1.8 mg/dL (1.8-2.4) O2 Saturation 93 % (92-99) Arterial Blood pH 7.48 (7.35-7.45) Arterial Blood pCO2 at Patient Temp 43 mmHg (35-46) Arterial Blood pO2 at Patient Temp 68 mmHg (65-108) Arterial Blood HCO3 31 mmol/L (21-28) Arterial Blood Base Excess 7 mmol/L (-3-3) FiO2 60%+5 Test 02/23/20 12:58 02/24/20 00:21 02/24/20 05:43 02/24/20 07:19 Glucose (Fingerstick) 212 mg/dL (70-99) 225 mg/dL (70-99) 193 mg/dL (70-99) O2 Saturation 89 % (92-99) Arterial Blood pH 7.41 (7.35-7.45) Arterial Blood pCO2 at Patient Temp 54 mmHg (35-46) Arterial Blood pO2 at Patient Temp 59 mmHg (65-108) Arterial Blood HCO3 34 mmol/L (21-28) Arterial Blood Base Excess 8 mmol/L (-3-3) FiO2 60 vent Test 02/24/20 09:24 Sodium Level 143 mmol/L (136-145) Potassium Level 4.2 mmol/L (3.5-5.1) Chloride Level 105 mmol/L (98-107) Carbon Dioxide Level 33 mmol/L (21-32) Anion Gap 5 (6-14) Blood Urea Nitrogen 48 mg/dL (8-26) Creatinine 2.4 mg/dL (0.7-1.3) Estimated GFR (Cockcroft-Gault) 27.1 Glucose Level 199 mg/dL (70-99) Calcium Level 8.4 mg/dL (8.5-10.1) Iron Level 28 ug/dL (65-175) Total Iron Binding Capacity 259 ug/dL (250-450) Iron Saturation 11 % (15-34) Ferritin 149 ng/mL (26-388) Laboratory Tests Test 02/23/20 12:58 02/24/20 00:21 02/24/20 05:43 02/24/20 07:19 Glucose (Fingerstick) 212 mg/dL (70-99) 225 mg/dL (70-99) 193 mg/dL (70-99) O2 Saturation 89 % (92-99) Arterial Blood pH 7.41 (7.35-7.45) Arterial Blood pCO2 at Patient Temp 54 mmHg (35-46) Arterial Blood pO2 at Patient Temp 59 mmHg (65-108) Arterial Blood HCO3 34 mmol/L (21-28) Arterial Blood Base Excess 8 mmol/L (-3-3) FiO2 60 vent Test 02/24/20 09:24 Sodium Level 143 mmol/L (136-145) Potassium Level 4.2 mmol/L (3.5-5.1) Chloride Level 105 mmol/L (98-107) Carbon Dioxide Level 33 mmol/L (21-32) Anion Gap 5 (6-14) Blood Urea Nitrogen 48 mg/dL (8-26) Creatinine 2.4 mg/dL (0.7-1.3) Estimated GFR (Cockcroft-Gault) 27.1 Glucose Level 199 mg/dL (70-99) Calcium Level 8.4 mg/dL (8.5-10.1) Iron Level 28 ug/dL (65-175) Total Iron Binding Capacity 259 ug/dL (250-450) Iron Saturation 11 % (15-34) Ferritin 149 ng/mL (26-388) Microbiology 02/21/20 Blood Culture - Preliminary, Resulted NO GROWTH AFTER 2 DAYS Medications Current Medications Sodium Chloride (Normal Saline Flush) 3 ml QSHIFT PRN IV AFTER MEDS AND BLOOD DRAWS; Start 02/21/20 at 06:45 Sodium Chloride 1,000 ml @ 100 mls/hr Q10H IV Last administered on 02/24/20at 04:45; Start 02/21/20 at 06:45; Stop 02/24/20 at 08:11; Status DC Fentanyl Citrate 30 ml @ 0 mls/hr CONT PRN IV SEE PROTOCOL Last administered on 02/21/20at 07:26; Start 02/21/20 at 06:45; Stop 02/21/20 at 10:59; Status DC Propofol 100 ml @ 0 mls/hr CONT PRN IV PER PROTOCOL Last administered on at 00:27; Start 02/21/20 at 06:45 Fentanyl Citrate (Fentanyl 2ml Vial) 25 mcg PRN Q1HR PRN IV SEE COMMENTS; Start 02/21/20 at 06:45 Fentanyl Citrate (Fentanyl 2ml Vial) 50 mcg PRN Q1HR PRN IV SEE COMMENTS; Start 02/21/20 at 06:45 Famotidine (Pepcid Vial) 20 mg BID IVP Last administered on 02/21/20at 10:23; Start 02/21/20 at 09:00; Stop 02/21/20 at 12:53; Status DC Morphine Sulfate (Morphine Sulfate) 2 mg PRN Q1HR PRN IV SEE COMMENTS.; Start 02/21/20 at 06:45; Stop 02/23/20 at 06:20; Status DC Morphine Sulfate (Morphine Sulfate) 4 mg PRN Q1HR PRN IV SEE COMMENTS.; Start 02/21/20 at 06:45; Stop 02/23/20 at 06:20; Status DC Midazolam HCl 100 ml @ 0 mls/hr CONT PRN IV SEE PROTOCOL Last administered on 02/23/20at 21:56; Start 02/21/20 at 06:45; Stop 02/24/20 at 11:18; Status DC Fentanyl Citrate 55 ml @ 0 mls/hr CONT PRN IV PAIN/SEDATION Last administered on 02/23/20at 18:21; Start 02/21/20 at 11:00 Ondansetron HCl (Zofran) 4 mg PRN Q6HRS PRN IVP NAUSEA/VOMITING; Start 02/21/20 at 12:15 Famotidine (Pepcid Vial) 20 mg BID IVP ; Start 02/21/20 at 13:00; Stop 02/21/20 at 12:53; Status DC Info (Icu Electrolyte Protocol) 1 ea DAILY MC Last administered on 02/23/20at 09:00; Start 02/22/20 at 09:00 Sodium Chloride (Normal Saline Flush) 3 ml QSHIFT PRN IV AFTER MEDS AND BLOOD DRAWS; Start 02/21/20 at 12:15; Status Cancel Bisacodyl (Dulcolax Supp) 10 mg PRN DAILY PRN CA CONSTIPATION; Start 02/21/20 at 12:15 Piperacillin Sod/ Tazobactam Sod (Zosyn Per Pharmacy) 1 each PRN DAILY PRN MC SEE COMMENTS; Start 02/21/20 at 12:15 Meropenem 500 mg/ Sodium Chloride 50 ml @ 100 mls/hr Q8HRS IV Last administered on 02/22/20at 05:38; Start 02/21/20 at 14:00; Stop 02/22/20 at 08:19; Status DC Pantoprazole Sodium (PROTONIX VIAL for IV PUSH) 40 mg DAILYAC IVP ; Start 02/22/20 at 16:30; Status Cancel Furosemide (Lasix) 40 mg 1X ONCE IVP Last administered on 02/21/20at 16:24; Start 02/21/20 at 15:00; Stop 02/21/20 at 15:01; Status DC Piperacillin Sod/ Tazobactam Sod 3.375 gm/Sodium Chloride 50 ml @ 100 mls/hr Q6HRS IV Last administered on 02/24/20at 05:42; Start 02/21/20 at 18:00 Simvastatin (Zocor) 40 mg QHS PO Last administered on 02/23/20at 20:35; Start 02/21/20 at 21:00 Propranolol HCl (Inderal) 40 mg BID PO ; Start 02/21/20 at 21:00; Status Cancel Apixaban (Eliquis) 5 mg BID PO Last administered on 02/22/20at 08:46; Start 02/21/20 at 21:30; Stop 02/22/20 at 09:28; Status DC Pantoprazole Sodium (Protonix) 40 mg DAILYAC PO ; Start 02/22/20 at 07:30; Stop 02/21/20 at 22:27; Status DC Propranolol HCl (Inderal) 40 mg BID PO Last administered on 02/22/20at 21:03; Start 02/21/20 at 21:30 Sucralfate (Carafate) 1 gm QID PO ; Start 02/21/20 at 21:30; Stop 02/21/20 at 22:23; Status DC Vitamin D (Vitamin D3) 1,000 unit DAILY PO Last administered on 02/24/20 09:51; Start 02/22/20 at 09:00 Fenofibrate (Lofibra) 134 mg DAILY PO Last administered on 02/24/20 09:50; Start 02/22/20 at 09:00 Multivitamins (Thera M Plus) 1 tab DAILY PO ; Start 02/22/20 at 09:00; Stop 02/22/20 at 08:44; Status DC Pantoprazole Sodium (PROTONIX VIAL for IV PUSH) 40 mg DAILY IVP Last administered on 02/24/20 09:50; Start 02/22/20 at 09:00 Info (FLU VACCINE SCREEN per RX) 1 each 1X ONCE MC ; Start 02/22/20 at 00:00; Stop 02/22/20 at 00:01; Status UNV Influenza Virus Vaccine Quadrival (Fluzone Quad 0510-6886 Syringe) 0.5 ml ONCE ONCE VAX IM ; Start 02/22/20 at 09:00; Stop 02/22/20 at 09:01; Status DC Info (Anti-Coagulation Monitoring By Pharmacy) 1 each PRN DAILY PRN MC SEE COMMENTS; Start 02/22/20 at 08:15 Linezolid/Dextrose 300 ml @ 300 mls/hr Q12HR IV Last administered on 02/24/20 09:51; Start 02/22/20 at 09:00 Multivitamins/ Minerals Therapeutic (Centrum Multivit-Mineral Liq) 5 ml DAILY PEG Last administered on 02/24/20 09:50; Start 02/22/20 at 09:00 Furosemide (Lasix) 40 mg DAILY IVP Last administered on 02/24/20 09:50; Start 02/22/20 at 10:00 Micafungin Sodium 100 mg/Dextrose 100 ml @ 100 mls/hr Q24H IV Last administered on 02/23/20at 08:18; Start 02/22/20 at 12:00 Linezolid/Dextrose 300 ml @ 300 mls/hr Q12HR IV ; Start 02/22/20 at 11:30; Stop 02/22/20 at 11:20; Status DC Potassium Chloride/Water 100 ml @ 100 mls/hr Q1H IV Last administered on 02/23/20at 09:18; Start 02/23/20 at 08:00; Stop 02/23/20 at 09:59; Status DC Magnesium Sulfate 50 ml @ 25 mls/hr 1X ONCE IV Last administered on 02/23/20at 08:17; Start 02/23/20 at 08:00; Stop 02/23/20 at 09:59; Status DC Insulin Human Lispro (HumaLOG) 0-5 UNITS Q6HRS SQ Last administered on 02/24/20at 05:46; Start 02/23/20 at 12:00 Dextrose (Dextrose 50%-Water Syringe) 12.5 gm PRN Q15MIN PRN IV SEE COMMENTS; Start 02/23/20 at 08:00 Magnesium Sulfate 50 ml @ 25 mls/hr PRN DAILY PRN IV for Mag < 1.7 on am labs; Start 02/24/20 at 08:15 Active Scripts Active Carafate (Sucralfate) 1 Gm Tablet 1 Tab PO QID 30 Days Protonix (Pantoprazole Sodium) 40 Mg Tablet.dr 40 Mg PO DAILYAC 30 Days Miralax (Polyethylene Glycol 3350) 17 Gm Powd.pack 1 Packet PO DAILY 2 Days dissolve in water Reported D3-50 (Cholecalciferol (Vitamin D3)) 50,000 Unit Capsule 1,000 Unit PO DAILY Propranolol Hcl 40 Mg Tablet 40 Mg PO BID Furosemide 40 Mg Tablet 40 Mg PO BID Eliquis (Apixaban) 5 Mg Tablet 5 Mg PO BID Humalog (Insulin Lispro) 100 Unit/1 Ml Cartridge 100 Unit SQ TIDACHC Lantus (Insulin Glargine,Hum.rec.anlog) 100 Unit/1 Ml Vial 35 Unit SQ HS Hydrocodone-Apap 7.5-325 (Hydrocodone Bit/Acetaminophen) 1 Tab Tablet 1 Tab PO PRN Q6HRS PRN Glimepiride 1 Mg Tablet 1 Mg PO DAILY Simvastatin 40 Mg Tablet 1 Tab PO QHS Fenofibrate 160 Mg Tablet 145 Mg PO HS Propranolol Hcl 40 Mg Tablet 1 Tab PO BID One-Daily Multi-Vitamin (Multivitamin) 1 Each Tablet 1 Tab PO DAILY 30 Days Vitals/I & O Vital Sign - Last 24 Hours 02/23/20 02/23/20 02/23/20 02/23/20 14:06 15:21 16:20 16:21 Pulse 62 61 Resp 20 20 B/P (MAP) 88/46 (60) 85/41 (56) Pulse Ox 93 91 91 O2 Delivery Ventilator Ventilator Mechanical Ventilator Ventilator 02/23/20 02/23/20 02/23/20 02/23/20 17:00 18:21 18:36 19:00 Temp 97.9 98.2 97.9 98.2 Pulse 61 62 62 Resp 20 20 22 B/P (MAP) 91/49 (63) 91/49 (63) 96/48 (64) Pulse Ox 95 95 94 O2 Delivery Ventilator Ventilator Ventilator 02/23/20 02/23/20 02/23/20 02/23/20 19:13 20:00 20:00 20:10 Pulse 63 Resp 20 B/P (MAP) 94/49 (64) Pulse Ox 95 93 93 O2 Delivery Mechanical Ventilator Ventilator Ventilator 02/23/20 02/23/20 02/23/20 02/23/20 20:35 21:00 22:00 23:00 Pulse 63 62 61 61 Resp 20 20 20 B/P (MAP) 94/49 96/49 (65) 97/58 (71) 91/48 (62) Pulse Ox 93 93 92 O2 Delivery Ventilator Ventilator Ventilator 02/23/20 02/23/20 02/23/20 02/24/20 23:36 23:59 23:59 01:00 Temp 98.1 98.1 Pulse 62 61 Resp 21 22 B/P (MAP) 96/50 (65) 89/43 (58) Pulse Ox 92 92 95 O2 Delivery Ventilator Ventilator Mechanical Ventilator Ventilator 02/24/20 02/24/20 02/24/20 02/24/20 02:00 03:33 04:00 04:00 Temp 98.2 98.2 Pulse 59 60 62 Resp 22 20 20 B/P (MAP) 97/53 (68) 96/51 (66) 99/52 (68) Pulse Ox 95 95 94 O2 Delivery Ventilator Ventilator Ventilator Mechanical Ventilator 02/24/20 02/24/20 02/24/20 02/24/20 04:05 05:00 06:00 07:00 Temp 97.7 97.7 Pulse 60 60 62 Resp 20 20 20 B/P (MAP) 90/62 (71) 94/49 (64) 105/51 (69) Pulse Ox 92 91 91 93 O2 Delivery Ventilator Ventilator Ventilator Ventilator 02/24/20 02/24/20 02/24/20 02/24/20 07:14 08:00 08:00 09:00 Pulse 62 64 Resp 20 20 B/P (MAP) 111/56 (74) 105/51 (69) Pulse Ox 92 95 94 O2 Delivery Ventilator Mechanical Ventilator Ventilator Ventilator 02/24/20 02/24/20 02/24/20 10:00 11:00 11:20 Temp 98.0 98.0 Pulse 68 68 Resp 20 20 B/P (MAP) 125/64 (84) 118/63 (81) Pulse Ox 97 96 94 O2 Delivery Ventilator Ventilator Ventilator Intake and Output 02/23/20 02/23/20 02/24/20 15:00 23:00 07:00 Intake Total 950 ml 3241.5 ml 2290 ml Output Total 250 ml 300 ml 300 ml Balance 700 ml 2941.5 ml 1990 ml Justifications for Admission Other Justification resp failure JEFFREY MINOR MD Feb 24, 2020 12:27
--- NOTE | 2020-02-24 12:53 | PDOC ---
Infectious Disease Note Subjective: Subjective Patient intubated/sedated No acute issues per discussion with RN Vital Signs: Vital Signs Vital Signs Date Time Temp Pulse Resp B/P (MAP) Pulse Ox O2 Delivery O2 Flow Rate FiO2 02/24/20 11:20 94 Ventilator 02/24/20 11:00 98.0 68 20 118/63 (81) 98.0 Physical Exam: PHYSICAL EXAM GENERAL: Intubated, sedated male in COVID isolation. HEENT: Normocephalic, atraumatic, anicteric. LUNGS: Clear anteriorly. HEART: S1, S2. ABDOMEN: Obese. Bowel sounds present, nondistended. GENITOURINARY: Scrotal swelling. Yeast in groin [place] in place. EXTREMITIES: Bilateral venous stasis changes present. Wounds present over both lower extremities, hyperkeratotic skin, no cyanosis, no clubbing. DERMATOLOGIC: Warm, dry. No generalized rash except for above. Right internal jugular vein in place. Medications: Inpatient Meds: Current Medications Medications (Trade) Dose Ordered Sig/Dulce Start Time Stop Time Status Last Admin Dose Admin Apixaban (Eliquis) 5 mg BID 02/21/20 21:30 02/22/20 09:28 DC 02/22/20 08:46 5 MG Bisacodyl (Dulcolax Supp) 10 mg PRN DAILY PRN 02/21/20 12:15 Dextrose (Dextrose 50%-Water Syringe) 12.5 gm PRN Q15MIN PRN 02/23/20 08:00 Famotidine (Pepcid Vial) 20 mg BID 02/21/20 13:00 02/21/20 12:53 DC Fenofibrate (Lofibra) 134 mg DAILY 02/22/20 09:00 02/24/20 09:50 134 MG Fentanyl Citrate 55 ml @ 0 mls/hr CONT PRN 02/21/20 11:00 02/23/20 18:21 1.5 MLS/HR Fentanyl Citrate (Fentanyl 2ml Vial) 50 mcg PRN Q1HR PRN 02/21/20 06:45 Furosemide (Lasix) 40 mg DAILY 02/22/20 10:00 02/24/20 09:50 40 MG Influenza Virus Vaccine Quadrival (Fluzone Quad Syringe) 0.5 ml ONCE ONCE 02/22/20 09:00 02/22/20 09:01 DC Info (Anti-Coagulation Monitoring By Pharmacy) 1 each PRN DAILY PRN 02/22/20 08:15 Info (FLU VACCINE SCREEN per RX) 1 each 1X ONCE 02/22/20 00:00 02/22/20 00:01 UNV Info (Icu Electrolyte Protocol) 1 ea DAILY 02/22/20 09:00 02/23/20 09:00 1 EA Insulin Human Lispro (HumaLOG) 0-5 UNITS Q6HRS 02/23/20 12:00 02/24/20 05:46 3 UNITS Linezolid/Dextrose 300 ml @ 300 mls/hr Q12HR 02/22/20 11:30 02/22/20 11:20 DC Magnesium Sulfate 50 ml @ 25 mls/hr PRN DAILY PRN 02/24/20 08:15 Meropenem 500 mg/ Sodium Chloride 50 ml @ 100 mls/hr Q8HRS 02/21/20 14:00 02/22/20 08:19 DC 02/22/20 05:38 100 MLS/HR Micafungin Sodium 100 mg/Dextrose 100 ml @ 100 mls/hr Q24H 02/22/20 12:00 02/23/20 08:18 100 MLS/HR Midazolam HCl 100 ml @ 0 mls/hr CONT PRN 02/21/20 06:45 02/24/20 11:18 DC 02/23/20 21:56 8 MLS/HR Morphine Sulfate (Morphine Sulfate) 4 mg PRN Q1HR PRN 02/21/20 06:45 02/23/20 06:20 DC Multivitamins (Thera M Plus) 1 tab DAILY 02/22/20 09:00 02/22/20 08:44 DC Multivitamins/ Minerals Therapeutic (Centrum Multivit-Mineral Liq) 5 ml DAILY 02/22/20 09:00 02/24/20 09:50 5 ML Ondansetron HCl (Zofran) 4 mg PRN Q6HRS PRN 02/21/20 12:15 Pantoprazole Sodium (PROTONIX VIAL for IV PUSH) 40 mg DAILY 02/22/20 09:00 02/24/20 09:50 40 MG Pantoprazole Sodium (Protonix) 40 mg DAILYAC 02/22/20 07:30 02/21/20 22:27 DC Piperacillin Sod/ Tazobactam Sod (Zosyn Per Pharmacy) 1 each PRN DAILY PRN 02/21/20 12:15 Piperacillin Sod/ Tazobactam Sod 3.375 gm/Sodium Chloride 50 ml @ 100 mls/hr Q6HRS 02/21/20 18:00 02/24/20 05:42 100 MLS/HR Potassium Chloride/Water 100 ml @ 100 mls/hr Q1H 02/23/20 08:00 02/23/20 09:59 DC 02/23/20 09:18 100 MLS/HR Propofol 100 ml @ 0 mls/hr CONT PRN 02/21/20 06:45 02/24/20 00:27 14.1 MLS/HR Propranolol HCl (Inderal) 40 mg BID 02/21/20 21:30 02/22/20 21:03 40 MG Simvastatin (Zocor) 40 mg QHS 02/21/20 21:00 02/23/20 20:35 40 MG Sodium Chloride (Normal Saline Flush) 3 ml QSHIFT PRN 02/21/20 12:15 Cancel Sucralfate (Carafate) 1 gm QID 02/21/20 21:30 02/21/20 22:23 DC Vitamin D (Vitamin D3) 1,000 unit DAILY 02/22/20 09:00 02/24/20 09:51 1,000 UNIT Labs: Lab Laboratory Tests Test 02/23/20 12:58 02/24/20 00:21 02/24/20 05:43 02/24/20 07:19 Glucose (Fingerstick) 212 mg/dL (70-99) 225 mg/dL (70-99) 193 mg/dL (70-99) O2 Saturation 89 % (92-99) Arterial Blood pH 7.41 (7.35-7.45) Arterial Blood pCO2 at Patient Temp 54 mmHg (35-46) Arterial Blood pO2 at Patient Temp 59 mmHg (65-108) Arterial Blood HCO3 34 mmol/L (21-28) Arterial Blood Base Excess 8 mmol/L (-3-3) FiO2 60 vent Test 02/24/20 09:24 Sodium Level 143 mmol/L (136-145) Potassium Level 4.2 mmol/L (3.5-5.1) Chloride Level 105 mmol/L (98-107) Carbon Dioxide Level 33 mmol/L (21-32) Anion Gap 5 (6-14) Blood Urea Nitrogen 48 mg/dL (8-26) Creatinine 2.4 mg/dL (0.7-1.3) Estimated GFR (Cockcroft-Gault) 27.1 Glucose Level 199 mg/dL (70-99) Calcium Level 8.4 mg/dL (8.5-10.1) Iron Level 28 ug/dL (65-175) Total Iron Binding Capacity 259 ug/dL (250-450) Iron Saturation 11 % (15-34) Ferritin 149 ng/mL (26-388) Objective: Assessment: Febrile illness Acute hypoxic respiratory failure status post intubation Encephalopathy likely metabolic NATASHA with underlying CKD Diabetes mellitus Chronic venous stasis with bilateral chronic nonhealing lower extremity wounds with mild superimposed cellulitis Yeast in groin Elevated ammonia , cholelithiasis with distended gb on ct abdomen. History of atrial fibrillation. History of pulmonary embolism and deep venous thrombosis, status post IVC filter. Rapid COVID negative, 02/20. 10. Chronic venous stasis dermatitis, bilateral lower extremities with mild superimposed bilateral lower extremity cellulitis. 11. Congestive heart failure. 12. senior living resident. 13. Elevated D-dimer. 14. Anemia. RECOMMENDATIONS: 1. Discontinue meropenem as the patient does not need 2-beta lactams 2. Continue Zosyn. 3. Add Zyvox and micafungin. 4. Follow up labs and cultures. 5. Continue local wound care. 6. Continue supportive care. 7. GI, Pulmonary, Neurology and Renal team consulte Plan: Plan of Care Continue Zosyn Zyvox and micafungin Follow-up cultures here and from [facility] Continue supportive care Monitor labs Discussed with ARTURO FARRIS MD Feb 24, 2020 12:53
[2020-02-24] MEDS: MICAFUNGIN 100 MG in IV DEXTROSE 5% 100ML 100 ML IV SCH (13:21)
--- NOTE | 2020-02-24 17:59 | NUR ---
Pt turned to clean up after bowel movement, pt desated to 56%, pt suctioned and 100% fio2 button pressed, pt spo2 increased to 91%
[2020-02-24] MEDS: SIMVASTATIN 40 MG TABLET. PO SCH (21:09)
[2020-02-25] VITALS (24 sets, daily range): BP systolic 96–131; BP diastolic 52–71
[2020-02-25] MEDS: PIPERACILLIN/TAZOBACTAM 3.375 GM in IV NORMAL SALINE 50ML 50 ML IV SCH ×4 (05:50→18:11)
[2020-02-25] MEDS: fentaNYL HIGH DOSE PCA 55 ML IV PRN (05:51)
[2020-02-25] MEDS: INSULIN LISPRO 300 UNITS/3 ML VIAL. SQ SCH ×4 (05:52→18:12)
[2020-02-25 06:14] LABS: BASO # 0.1 x10^3/uL (0.0-0.2); BASO % 1 % (0-3); EOS # 0.2 x10^3/uL (0.0-0.7); EOS % 4 % (0-3); HEMATOCRIT 25.9 % (39.0-53.0); HEMOGLOBIN 7.9 g/dL (13.0-17.5); LYMPH # 0.6 x10^3/uL (1.0-4.8); LYMPH % 10 % (24-48); MEAN CORPUSCULAR HEMOGLOBIN 25 pg (25-35); MEAN CORPUSCULAR HGB CONC 31 g/dL (31-37); MEAN CORPUSCULAR VOLUME 80 fL (79-100); MONO # 0.5 x10^3/uL (0.0-1.1); MONO % 9 % (0-9); NEUT # 4.2 x10^3/uL (1.8-7.7); NEUT % 75 % (31-73); PLATELET COUNT 246 x10^3/uL (140-400); RED BLOOD COUNT 3.23 x10^6/uL (4.30-5.70); RED CELL DISTRIBUTION WIDTH 17.9 % (11.5-14.5); WHITE BLOOD COUNT 5.6 x10^3/uL (4.0-11.0)
[2020-02-25 06:33] LABS: ALBUMIN 1.8 g/dL (3.4-5.0); CALCIUM 9.1 mg/dL (8.5-10.1); CREATININE 4.9 mg/dL (0.7-1.3); GFR 11.9; MAGNESIUM 2.9 mg/dL (1.8-2.4); POTASSIUM 3.6 mmol/L (3.5-5.1)
[2020-02-25] MEDS: PROPOFOL 100 ML IV PRN ×2 (07:40→16:36)
[2020-02-25] MEDS: FUROSEMIDE 40 MG/4 ML VIAL. IVP SCH ×2 (09:00→13:48)
[2020-02-25] MEDS: ELECTROLYTE (ICU) PROTOCOL. MC SCH (09:00)
[2020-02-25] MEDS: PROPRANOLOL 40 MG TABLET. PO SCH ×2 (09:00→21:00)
--- NOTE | 2020-02-25 09:08 | PDOC ---
PULMONARY PROGRESS NOTES DATE: 02/25/20 TIME: 09:05 Subjective On vent support 60%, and PEEP of 5 Hypoxia with turning no overnight concerns from nursing Vitals Vital Signs Date Time Temp Pulse Resp B/P (MAP) Pulse Ox O2 Delivery O2 Flow Rate FiO2 02/25/20 08:00 Mechanical Ventilator 02/25/20 06:00 53 20 106/55 (72) 93 02/25/20 04:00 97.5 97.5 Comments intubated/sedated Lungs: Clear Cardiovascular: S1, S2 Abdomen: Other Extremities: Other (BLE edema ) Skin: Warm, Dry Labs Laboratory Tests Test 02/23/20 12:58 02/24/20 00:21 02/24/20 05:43 02/24/20 07:19 Glucose (Fingerstick) 212 mg/dL (70-99) 225 mg/dL (70-99) 193 mg/dL (70-99) O2 Saturation 89 % (92-99) Arterial Blood pH 7.41 (7.35-7.45) Arterial Blood pCO2 at Patient Temp 54 mmHg (35-46) Arterial Blood pO2 at Patient Temp 59 mmHg (65-108) Arterial Blood HCO3 34 mmol/L (21-28) Arterial Blood Base Excess 8 mmol/L (-3-3) FiO2 60 vent Test 02/24/20 08:52 02/24/20 09:24 02/24/20 13:25 02/24/20 23:50 Urine Random Sodium <20 mmol/L (Not Estab.) Sodium Level 143 mmol/L (136-145) Potassium Level 4.2 mmol/L (3.5-5.1) Chloride Level 105 mmol/L (98-107) Carbon Dioxide Level 33 mmol/L (21-32) Anion Gap 5 (6-14) Blood Urea Nitrogen 48 mg/dL (8-26) Creatinine 2.4 mg/dL (0.7-1.3) Estimated GFR (Cockcroft-Gault) 27.1 Glucose Level 199 mg/dL (70-99) Calcium Level 8.4 mg/dL (8.5-10.1) Iron Level 28 ug/dL (65-175) Total Iron Binding Capacity 259 ug/dL (250-450) Iron Saturation 11 % (15-34) Ferritin 149 ng/mL (26-388) Glucose (Fingerstick) 206 mg/dL (70-99) 247 mg/dL (70-99) Test 02/25/20 05:45 02/25/20 05:48 White Blood Count 5.6 x10^3/uL (4.0-11.0) Red Blood Count 3.23 x10^6/uL (4.30-5.70) Hemoglobin 7.9 g/dL (13.0-17.5) Hematocrit 25.9 % (39.0-53.0) Mean Corpuscular Volume 80 fL (79-100) Mean Corpuscular Hemoglobin 25 pg (25-35) Mean Corpuscular Hemoglobin Concent 31 g/dL (31-37) Red Cell Distribution Width 17.9 % (11.5-14.5) Platelet Count 246 x10^3/uL (140-400) Neutrophils (%) (Auto) 75 % (31-73) Lymphocytes (%) (Auto) 10 % (24-48) Monocytes (%) (Auto) 9 % (0-9) Eosinophils (%) (Auto) 4 % (0-3) Basophils (%) (Auto) 1 % (0-3) Neutrophils # (Auto) 4.2 x10^3/uL (1.8-7.7) Lymphocytes # (Auto) 0.6 x10^3/uL (1.0-4.8) Monocytes # (Auto) 0.5 x10^3/uL (0.0-1.1) Eosinophils # (Auto) 0.2 x10^3/uL (0.0-0.7) Basophils # (Auto) 0.1 x10^3/uL (0.0-0.2) Sodium Level 134 mmol/L (136-145) Potassium Level 3.6 mmol/L (3.5-5.1) Chloride Level 95 mmol/L (98-107) Carbon Dioxide Level 26 mmol/L (21-32) Anion Gap 13 (6-14) Blood Urea Nitrogen 109 mg/dL (8-26) Creatinine 4.9 mg/dL (0.7-1.3) Estimated GFR (Cockcroft-Gault) 11.9 Glucose Level 148 mg/dL (70-99) Calcium Level 9.1 mg/dL (8.5-10.1) Phosphorus Level 6.0 mg/dL (2.6-4.7) Magnesium Level 2.9 mg/dL (1.8-2.4) Albumin 1.8 g/dL (3.4-5.0) Glucose (Fingerstick) 233 mg/dL (70-99) Laboratory Tests Test 02/24/20 09:24 02/24/20 13:25 02/24/20 23:50 02/25/20 05:45 Sodium Level 143 mmol/L (136-145) 134 mmol/L (136-145) Potassium Level 4.2 mmol/L (3.5-5.1) 3.6 mmol/L (3.5-5.1) Chloride Level 105 mmol/L (98-107) 95 mmol/L (98-107) Carbon Dioxide Level 33 mmol/L (21-32) 26 mmol/L (21-32) Anion Gap 5 (6-14) 13 (6-14) Blood Urea Nitrogen 48 mg/dL (8-26) 109 mg/dL (8-26) Creatinine 2.4 mg/dL (0.7-1.3) 4.9 mg/dL (0.7-1.3) Estimated GFR (Cockcroft-Gault) 27.1 11.9 Glucose Level 199 mg/dL (70-99) 148 mg/dL (70-99) Calcium Level 8.4 mg/dL (8.5-10.1) 9.1 mg/dL (8.5-10.1) Iron Level 28 ug/dL (65-175) Total Iron Binding Capacity 259 ug/dL (250-450) Iron Saturation 11 % (15-34) Ferritin 149 ng/mL (26-388) Glucose (Fingerstick) 206 mg/dL (70-99) 247 mg/dL (70-99) White Blood Count 5.6 x10^3/uL (4.0-11.0) Red Blood Count 3.23 x10^6/uL (4.30-5.70) Hemoglobin 7.9 g/dL (13.0-17.5) Hematocrit 25.9 % (39.0-53.0) Mean Corpuscular Volume 80 fL (79-100) Mean Corpuscular Hemoglobin 25 pg (25-35) Mean Corpuscular Hemoglobin Concent 31 g/dL (31-37) Red Cell Distribution Width 17.9 % (11.5-14.5) Platelet Count 246 x10^3/uL (140-400) Neutrophils (%) (Auto) 75 % (31-73) Lymphocytes (%) (Auto) 10 % (24-48) Monocytes (%) (Auto) 9 % (0-9) Eosinophils (%) (Auto) 4 % (0-3) Basophils (%) (Auto) 1 % (0-3) Neutrophils # (Auto) 4.2 x10^3/uL (1.8-7.7) Lymphocytes # (Auto) 0.6 x10^3/uL (1.0-4.8) Monocytes # (Auto) 0.5 x10^3/uL (0.0-1.1) Eosinophils # (Auto) 0.2 x10^3/uL (0.0-0.7) Basophils # (Auto) 0.1 x10^3/uL (0.0-0.2) Phosphorus Level 6.0 mg/dL (2.6-4.7) Magnesium Level 2.9 mg/dL (1.8-2.4) Albumin 1.8 g/dL (3.4-5.0) Test 02/25/20 05:48 Glucose (Fingerstick) 233 mg/dL (70-99) Medications Active Scripts Medications Dose Route/Sig Max Daily Dose Days Date Category Dose Instructions D3-50 (Cholecalciferol (Vitamin D3)) 50,000 Unit Capsule 1,000 Unit PO DAILY 02/21/20 Reported Propranolol Hcl 40 Mg Tablet 40 Mg PO BID 02/21/20 Reported Furosemide 40 Mg Tablet 40 Mg PO BID 02/21/20 Reported Eliquis (Apixaban) 5 Mg Tablet 5 Mg PO BID 02/21/20 Reported Humalog (Insulin Lispro) 100 Unit/1 Ml Cartridge 100 Unit SQ TIDACHC 02/21/20 Reported Lantus (Insulin Glargine,Hum.rec.anlog) 100 Unit/1 Ml Vial 35 Unit SQ HS 02/21/20 Reported Hydrocodone-Apap 7.5-325 (Hydrocodone Bit/Acetaminophen) 1 Tab Tablet 1 Tab PO PRN Q6HRS PRN 02/21/20 Reported Glimepiride 1 Mg Tablet 1 Mg PO DAILY 02/21/20 Reported Carafate (Sucralfate) 1 Gm Tablet 1 Tab PO QID 30 11/11/19 Rx Protonix (Pantoprazole Sodium) 40 Mg Tablet.dr 40 Mg PO DAILYAC 30 11/11/19 Rx Miralax (Polyethylene Glycol 3350) 17 Gm Powd.pack 1 Packet PO DAILY 2 11/11/19 Rx dissolve in water Simvastatin 40 Mg Tablet 1 Tab PO QHS 11/06/19 Reported Fenofibrate 160 Mg Tablet 145 Mg PO HS 11/06/19 Reported Propranolol Hcl 40 Mg Tablet 1 Tab PO BID 11/06/19 Reported One-Daily Multi-Vitamin (Multivitamin) 1 Each Tablet 1 Tab PO DAILY 30 11/06/19 Reported Comments CXR 02/24/20 IMPRESSION: 1. No stable change in diffuse mixed interstitial and alveolar infiltrate and small to moderate pleural effusions. 2. Support lines and tubes, described above. Impression . IMPRESSION: 1. Acute on chronic hypoxemic hypercapnic respiratory failure, required intubation 2. Paroxysmal atrial fibrillation. 3. History of deep venous thrombosis, PE, status post IVC filter placement. 4. History of anemia with history of recent gastrointestinal bleed. 5. Hypertension. 6. Hyperlipidemia. 7. Acute on chronic kidney disease. 8. Acute exacerbation of chronic obstructive pulmonary disease. 9. Acute on chronic metabolic toxic, possible toxic encephalopathy. Plan . Continue current vent support currently on 60% and PEEP of 5, Follow CXR and ABG, make changes as indicated Follow nephrology recommendations Follow cardiology recommendations--- continue diuresis COVID-19 negative Continue empiric antibiotic per ID, Follow cultures NGTD on : Anastasia/Zyvox/zosyn Follow GI recs continue TF for nutritional support DVT/GI prophylaxis Critical care time 0900--0930 AM Discussed with RN and RT CHRISTIE ALMARAZ MD Feb 25, 2020 09:08
[2020-02-25 09:28] LABS: BASE EXCESS ABG 5 mmol/L (-3-3); HCO3 ABG 30 mmol/L (21-28); PCO2 ABG 49 mmHg (35-46); PO2 ABG 64 mmHg (65-108); SAT O2 ABG 90 % (92-99)
[2020-02-25] MEDS: MULTIVITAMINS,THERAPEUTIC 5 ML ORAL LIQUID. PEG SCH (09:34)
[2020-02-25] MEDS: FENOFIBRATE,MICRONIZED 134 MG CAPSULE PO SCH (09:34)
[2020-02-25] MEDS: PANTOPRAZOLE IV PUSH 40 MG VIAL. IVP SCH (09:34)
[2020-02-25] MEDS: CHOLECALCIFEROL (VITAMIN D3) 1,000 UNIT TABLET PO SCH (09:34)
--- NOTE | 2020-02-25 10:17 | PDOC ---
PROGRESS NOTES Date of Service: DATE: 02/25/20 TIME: 10:16 Chief Complaint Chief Complaint VTE Prophylaxis Ordered VTE Prophylaxis Devices: Yes VTE Pharmacological Prophylaxi: Yes Assessment/Plan Assessment/Plan impression 1. Acute hypoxic / severe hypercapnic respiratory failure, 2. Chronic obstructive pulmonary disease. 3. Type 2 diabetes mellitus with peripheral neuropathy. 4. Hypertension. 5. Hyperlipidemia. 6. atrial fibrillation 7. History of deep vein thrombosis and pulmonary emboli x 3 for which he was on Coumadin. has now an inferior vena cava filter. Placement of retrievable IVC filter 11/12 8. bilateral lower extremity //chronic venous stasis dermatitis 9. morbid obesity 10. PUI COVID 19 11. 4 mm non bleeding antral gastric ulcer and erosive gastritis (bx) 11/12 12. NATASHA 13, ISCHEMIC CVD CT HEAD 14. CODE STROKE IN ER 15. ACUTE METABOLIC ENCEPHALOPATHY 16, POSSIBLE ASPIRATION, PNEUMONIA, SHOCK 17. Distended gallbladder, pericholecystic fluid and gallstones. Findings are equivocal for acute cholecystitis. 18. Diffuse hepatic steatosis. plan icu bed pulm consult cardiology consult GI CONSULT NEPHROLOGY CONSULT Neurology consult ID CONSULT ECHO Discontinue meropenem Continue Zosyn. Add Zyvox and micafungin. remains full code 34 MIN CC TIME History of Present Illness History of Present Illness Identification/Chief Complaint Chief Complaint [facility] History of Present Illness History of Present Illness 69 yr old male, transfer from [place] due to AMS, required vent support for respiratory failure BECAME HYPOXIC 0330, INTUBATED IN ER, WAS OBTUNDED, HAD ELEVATED D-DIMER BUN 32, CR 2.1 UDS NEG, PRO-BNP 5556 WAS CODE STROKE ON PRESENTATION DUE TO AMS RESIDENT OF [facility] , admitted by DR CASTANEDA HERE ON NOV 2019 D DIMER 1.82 BUT RENAL FX PROHIBITS CTA CHEST, DEFER TO PULM poor candidate for long-term anticoagulation. WAS outpatient referral for [facility] by cardiology Past Medical History Past Medical History PAST MEDICAL HISTORY: Positive for diabetes mellitus, hypertension, obesity, obstructive lung disease, hyperlipidemia, peripheral vascular disease, neuropathy, pulmonary embolism, venous stasis dermatitis. SOCIAL HISTORY: Negative for smoking, alcohol, or illicit drug use. ALLERGIES: LISTED ALLERGIC TO INSULIN AND CHLORDIAZEPOXIDE. CURRENT MEDICATIONS: Reviewed. Cardiovascular: AFIB, HTN, Hyperlipidemia Pulmonary: COPD, Pulmonary embolus GI: GERD Heme/Onc: No pertinent hx Hepatobiliary: No pertinent hx Psych: No pertinent hx Musculoskeletal: Osteoarthritis Rheumatologic: No pertinent hx Infectious disease: No pertinent hx Renal/: Chronic renal insuff Endocrine: Diabetes Past Surgical History Past Surgical History: Other Family History Family History: Diabetes, Hypertension Social History Smoke: <1 pack per day ALCOHOL: rare Drugs: None Current Medications Vitals Vitals Vital Signs Date Time Temp Pulse Resp B/P (MAP) Pulse Ox O2 Delivery O2 Flow Rate FiO2 02/25/20 10:00 56 20 102/52 (69) 94 Ventilator 02/25/20 08:00 97.1 97.1 Physical Exam Physical Exam GENERAL: Intubated, sedated male in COVID isolation. HEENT: Normocephalic, atraumatic, anicteric. LUNGS: Clear anteriorly. HEART: S1, S2. ABDOMEN: Obese. Bowel sounds present, nondistended. GENITOURINARY: Scrotal swelling. Yeast in groin [place] in place. EXTREMITIES: Bilateral venous stasis changes present. Wounds present over both lower extremities, hyperkeratotic skin, no cyanosis, no clubbing. DERMATOLOGIC: Warm, dry. No generalized rash except for above. Right internal jugular vein in place. General: Other (Intubated.) Heart: Regular rate Lungs: Clear Abdomen: Normal bowel sounds Extremities: Other (1+ bilateral LE edema. Chronic bilateral LE venous stasis dermatitis ) Labs LABS Laboratory Tests Test 02/24/20 13:25 02/24/20 23:50 02/25/20 05:45 02/25/20 05:48 Glucose (Fingerstick) 206 mg/dL (70-99) 247 mg/dL (70-99) 233 mg/dL (70-99) White Blood Count 5.6 x10^3/uL (4.0-11.0) Red Blood Count 3.23 x10^6/uL (4.30-5.70) Hemoglobin 7.9 g/dL (13.0-17.5) Hematocrit 25.9 % (39.0-53.0) Mean Corpuscular Volume 80 fL (79-100) Mean Corpuscular Hemoglobin 25 pg (25-35) Mean Corpuscular Hemoglobin Concent 31 g/dL (31-37) Red Cell Distribution Width 17.9 % (11.5-14.5) Platelet Count 246 x10^3/uL (140-400) Neutrophils (%) (Auto) 75 % (31-73) Lymphocytes (%) (Auto) 10 % (24-48) Monocytes (%) (Auto) 9 % (0-9) Eosinophils (%) (Auto) 4 % (0-3) Basophils (%) (Auto) 1 % (0-3) Neutrophils # (Auto) 4.2 x10^3/uL (1.8-7.7) Lymphocytes # (Auto) 0.6 x10^3/uL (1.0-4.8) Monocytes # (Auto) 0.5 x10^3/uL (0.0-1.1) Eosinophils # (Auto) 0.2 x10^3/uL (0.0-0.7) Basophils # (Auto) 0.1 x10^3/uL (0.0-0.2) Sodium Level 134 mmol/L (136-145) Potassium Level 3.6 mmol/L (3.5-5.1) Chloride Level 95 mmol/L (98-107) Carbon Dioxide Level 26 mmol/L (21-32) Anion Gap 13 (6-14) Blood Urea Nitrogen 109 mg/dL (8-26) Creatinine 4.9 mg/dL (0.7-1.3) Estimated GFR (Cockcroft-Gault) 11.9 Glucose Level 148 mg/dL (70-99) Calcium Level 9.1 mg/dL (8.5-10.1) Phosphorus Level 6.0 mg/dL (2.6-4.7) Magnesium Level 2.9 mg/dL (1.8-2.4) Albumin 1.8 g/dL (3.4-5.0) Comment Review of Relevant I have reviewed the following items megan (where applicable) has been applied. Labs Laboratory Tests Test 02/23/20 12:58 02/24/20 00:21 02/24/20 05:43 02/24/20 07:19 Glucose (Fingerstick) 212 mg/dL (70-99) 225 mg/dL (70-99) 193 mg/dL (70-99) O2 Saturation 89 % (92-99) Arterial Blood pH 7.41 (7.35-7.45) Arterial Blood pCO2 at Patient Temp 54 mmHg (35-46) Arterial Blood pO2 at Patient Temp 59 mmHg (65-108) Arterial Blood HCO3 34 mmol/L (21-28) Arterial Blood Base Excess 8 mmol/L (-3-3) FiO2 60 vent Test 02/24/20 08:52 02/24/20 09:24 02/24/20 13:25 02/24/20 23:50 Urine Random Sodium <20 mmol/L (Not Estab.) Sodium Level 143 mmol/L (136-145) Potassium Level 4.2 mmol/L (3.5-5.1) Chloride Level 105 mmol/L (98-107) Carbon Dioxide Level 33 mmol/L (21-32) Anion Gap 5 (6-14) Blood Urea Nitrogen 48 mg/dL (8-26) Creatinine 2.4 mg/dL (0.7-1.3) Estimated GFR (Cockcroft-Gault) 27.1 Glucose Level 199 mg/dL (70-99) Calcium Level 8.4 mg/dL (8.5-10.1) Iron Level 28 ug/dL (65-175) Total Iron Binding Capacity 259 ug/dL (250-450) Iron Saturation 11 % (15-34) Ferritin 149 ng/mL (26-388) Glucose (Fingerstick) 206 mg/dL (70-99) 247 mg/dL (70-99) Test 02/25/20 05:45 02/25/20 05:48 White Blood Count 5.6 x10^3/uL (4.0-11.0) Red Blood Count 3.23 x10^6/uL (4.30-5.70) Hemoglobin 7.9 g/dL (13.0-17.5) Hematocrit 25.9 % (39.0-53.0) Mean Corpuscular Volume 80 fL (79-100) Mean Corpuscular Hemoglobin 25 pg (25-35) Mean Corpuscular Hemoglobin Concent 31 g/dL (31-37) Red Cell Distribution Width 17.9 % (11.5-14.5) Platelet Count 246 x10^3/uL (140-400) Neutrophils (%) (Auto) 75 % (31-73) Lymphocytes (%) (Auto) 10 % (24-48) Monocytes (%) (Auto) 9 % (0-9) Eosinophils (%) (Auto) 4 % (0-3) Basophils (%) (Auto) 1 % (0-3) Neutrophils # (Auto) 4.2 x10^3/uL (1.8-7.7) Lymphocytes # (Auto) 0.6 x10^3/uL (1.0-4.8) Monocytes # (Auto) 0.5 x10^3/uL (0.0-1.1) Eosinophils # (Auto) 0.2 x10^3/uL (0.0-0.7) Basophils # (Auto) 0.1 x10^3/uL (0.0-0.2) Sodium Level 134 mmol/L (136-145) Potassium Level 3.6 mmol/L (3.5-5.1) Chloride Level 95 mmol/L (98-107) Carbon Dioxide Level 26 mmol/L (21-32) Anion Gap 13 (6-14) Blood Urea Nitrogen 109 mg/dL (8-26) Creatinine 4.9 mg/dL (0.7-1.3) Estimated GFR (Cockcroft-Gault) 11.9 Glucose Level 148 mg/dL (70-99) Calcium Level 9.1 mg/dL (8.5-10.1) Phosphorus Level 6.0 mg/dL (2.6-4.7) Magnesium Level 2.9 mg/dL (1.8-2.4) Albumin 1.8 g/dL (3.4-5.0) Glucose (Fingerstick) 233 mg/dL (70-99) Laboratory Tests Test 02/24/20 13:25 02/24/20 23:50 02/25/20 05:45 02/25/20 05:48 Glucose (Fingerstick) 206 mg/dL (70-99) 247 mg/dL (70-99) 233 mg/dL (70-99) White Blood Count 5.6 x10^3/uL (4.0-11.0) Red Blood Count 3.23 x10^6/uL (4.30-5.70) Hemoglobin 7.9 g/dL (13.0-17.5) Hematocrit 25.9 % (39.0-53.0) Mean Corpuscular Volume 80 fL (79-100) Mean Corpuscular Hemoglobin 25 pg (25-35) Mean Corpuscular Hemoglobin Concent 31 g/dL (31-37) Red Cell Distribution Width 17.9 % (11.5-14.5) Platelet Count 246 x10^3/uL (140-400) Neutrophils (%) (Auto) 75 % (31-73) Lymphocytes (%) (Auto) 10 % (24-48) Monocytes (%) (Auto) 9 % (0-9) Eosinophils (%) (Auto) 4 % (0-3) Basophils (%) (Auto) 1 % (0-3) Neutrophils # (Auto) 4.2 x10^3/uL (1.8-7.7) Lymphocytes # (Auto) 0.6 x10^3/uL (1.0-4.8) Monocytes # (Auto) 0.5 x10^3/uL (0.0-1.1) Eosinophils # (Auto) 0.2 x10^3/uL (0.0-0.7) Basophils # (Auto) 0.1 x10^3/uL (0.0-0.2) Sodium Level 134 mmol/L (136-145) Potassium Level 3.6 mmol/L (3.5-5.1) Chloride Level 95 mmol/L (98-107) Carbon Dioxide Level 26 mmol/L (21-32) Anion Gap 13 (6-14) Blood Urea Nitrogen 109 mg/dL (8-26) Creatinine 4.9 mg/dL (0.7-1.3) Estimated GFR (Cockcroft-Gault) 11.9 Glucose Level 148 mg/dL (70-99) Calcium Level 9.1 mg/dL (8.5-10.1) Phosphorus Level 6.0 mg/dL (2.6-4.7) Magnesium Level 2.9 mg/dL (1.8-2.4) Albumin 1.8 g/dL (3.4-5.0) Microbiology 02/21/20 Blood Culture - Preliminary, Resulted NO GROWTH AFTER 3 DAYS Medications Current Medications Sodium Chloride (Normal Saline Flush) 3 ml QSHIFT PRN IV AFTER MEDS AND BLOOD DRAWS; Start 02/21/20 at 06:45 Sodium Chloride 1,000 ml @ 100 mls/hr Q10H IV Last administered on 02/24/20at 04:45; Start 02/21/20 at 06:45; Stop 02/24/20 at 08:11; Status DC Fentanyl Citrate 30 ml @ 0 mls/hr CONT PRN IV SEE PROTOCOL Last administered on 02/21/20at 07:26; Start 02/21/20 at 06:45; Stop 02/21/20 at 10:59; Status DC Propofol 100 ml @ 0 mls/hr CONT PRN IV PER PROTOCOL Last administered on 02/25/20at 07:40; Start 02/21/20 at 06:45 Fentanyl Citrate (Fentanyl 2ml Vial) 25 mcg PRN Q1HR PRN IV SEE COMMENTS; Start 02/21/20 at 06:45 Fentanyl Citrate (Fentanyl 2ml Vial) 50 mcg PRN Q1HR PRN IV SEE COMMENTS; Start 02/21/20 at 06:45 Famotidine (Pepcid Vial) 20 mg BID IVP Last administered on 02/21/20at 10:23; Start 02/21/20 at 09:00; Stop 02/21/20 at 12:53; Status DC Morphine Sulfate (Morphine Sulfate) 2 mg PRN Q1HR PRN IV SEE COMMENTS.; Start 02/21/20 at 06:45; Stop 02/23/20 at 06:20; Status DC Morphine Sulfate (Morphine Sulfate) 4 mg PRN Q1HR PRN IV SEE COMMENTS.; Start 02/21/20 at 06:45; Stop 02/23/20 at 06:20; Status DC Midazolam HCl 100 ml @ 0 mls/hr CONT PRN IV SEE PROTOCOL Last administered on 02/23/20at 21:56; Start 02/21/20 at 06:45; Stop 02/24/20 at 11:18; Status DC Fentanyl Citrate 55 ml @ 0 mls/hr CONT PRN IV PAIN/SEDATION Last administered on 02/25/20at 05:51; Start 02/21/20 at 11:00 Ondansetron HCl (Zofran) 4 mg PRN Q6HRS PRN IVP NAUSEA/VOMITING; Start 02/21/20 at 12:15 Famotidine (Pepcid Vial) 20 mg BID IVP ; Start 02/21/20 at 13:00; Stop 02/21/20 at 12:53; Status DC Info (Icu Electrolyte Protocol) 1 ea DAILY MC Last administered on 02/23/20at 09:00; Start 02/22/20 at 09:00 Sodium Chloride (Normal Saline Flush) 3 ml QSHIFT PRN IV AFTER MEDS AND BLOOD DRAWS; Start 02/21/20 at 12:15; Status Cancel Bisacodyl (Dulcolax Supp) 10 mg PRN DAILY PRN MT CONSTIPATION; Start 02/21/20 at 12:15 Piperacillin Sod/ Tazobactam Sod (Zosyn Per Pharmacy) 1 each PRN DAILY PRN MC S EE COMMENTS; Start 02/21/20 at 12:15 Meropenem 500 mg/ Sodium Chloride 50 ml @ 100 mls/hr Q8HRS IV Last administered on 02/22/20at 05:38; Start 02/21/20 at 14:00; Stop 02/22/20 at 08:19; Status DC Pantoprazole Sodium (PROTONIX VIAL for IV PUSH) 40 mg DAILYAC IVP ; Start 02/22/20 at 16:30; Status Cancel Furosemide (Lasix) 40 mg 1X ONCE IVP Last administered on 02/21/20at 16:24; Start 02/21/20 at 15:00; Stop 02/21/20 at 15:01; Status DC Piperacillin Sod/ Tazobactam Sod 3.375 gm/Sodium Chloride 50 ml @ 100 mls/hr Q6HRS IV Last administered on 02/25/20at 05:50; Start 02/21/20 at 18:00 Simvastatin (Zocor) 40 mg QHS PO Last administered on 02/24/20at 21:09; Start 02/21/20 at 21:00 Propranolol HCl (Inderal) 40 mg BID PO ; Start 02/21/20 at 21:00; Status Cancel Apixaban (Eliquis) 5 mg BID PO Last administered on 02/22/20at 08:46; Start 02/21/20 at 21:30; Stop 02/22/20 at 09:28; Status DC Pantoprazole Sodium (Protonix) 40 mg DAILYAC PO ; Start 02/22/20 at 07:30; Stop 02/21/20 at 22:27; Status DC Propranolol HCl (Inderal) 40 mg BID PO Last administered on 02/22/20at 21:03; Start 02/21/20 at 21:30 Sucralfate (Carafate) 1 gm QID PO ; Start 02/21/20 at 21:30; Stop 02/21/20 at 22:23; Status DC Vitamin D (Vitamin D3) 1,000 unit DAILY PO Last administered on 02/25/20 09:34; Start 02/22/20 at 09:00 Fenofibrate (Lofibra) 134 mg DAILY PO Last administered on 02/25/20 09:34; Start 02/22/20 at 09:00 Multivitamins (Thera M Plus) 1 tab DAILY PO ; Start 02/22/20 at 09:00; Stop 02/22/20 at 08:44; Status DC Pantoprazole Sodium (PROTONIX VIAL for IV PUSH) 40 mg DAILY IVP Last administered on 02/25/20 09:34; Start 02/22/20 at 09:00 Info (FLU VACCINE SCREEN per RX) 1 each 1X ONCE MC ; Start 02/22/20 at 00:00; Stop 02/22/20 at 00:01; Status UNV Influenza Virus Vaccine Quadrival (Fluzone Quad Syringe) 0.5 ml ONCE ONCE VAX IM ; Start 02/22/20 at 09:00; Stop 02/22/20 at 09:01; Status DC Info (Anti-Coagulation Monitoring By Pharmacy) 1 each PRN DAILY PRN MC SEE COMMENTS; Start 02/22/20 at 08:15 Linezolid/Dextrose 300 ml @ 300 mls/hr Q12HR IV Last administered on 02/25/20 09:34; Start 02/22/20 at 09:00 Multivitamins/ Minerals Therapeutic (Centrum Multivit-Mineral Liq) 5 ml DAILY PEG Last administered on 02/25/20 09:34; Start 02/22/20 at 09:00 Furosemide (Lasix) 40 mg DAILY IVP Last administered on 02/24/20 09:50; Start 02/22/20 at 10:00 Micafungin Sodium 100 mg/Dextrose 100 ml @ 100 mls/hr Q24H IV Last administered on 02/24/20 13:21; Start 02/22/20 at 12:00 Linezolid/Dextrose 300 ml @ 300 mls/hr Q12HR IV ; Start 02/22/20 at 11:30; Stop 02/22/20 at 11:20; Status DC Potassium Chloride/Water 100 ml @ 100 mls/hr Q1H IV Last administered on 02/23/20at 09:18; Start 02/23/20 at 08:00; Stop 02/23/20 at 09:59; Status DC Magnesium Sulfate 50 ml @ 25 mls/hr 1X ONCE IV Last administered on 02/23/20at 08:17; Start 02/23/20 at 08:00; Stop 02/23/20 at 09:59; Status DC Insulin Human Lispro (HumaLOG) 0-5 UNITS Q6HRS SQ Last administered on 02/25/20at 05:52; Start 02/23/20 at 12:00 Dextrose (Dextrose 50%-Water Syringe) 12.5 gm PRN Q15MIN PRN IV SEE COMMENTS; Start 02/23/20 at 08:00 Magnesium Sulfate 50 ml @ 25 mls/hr PRN DAILY PRN IV for Mag < 1.7 on am labs; Start 02/24/20 at 08:15 Active Scripts Active Carafate (Sucralfate) 1 Gm Tablet 1 Tab PO QID 30 Days Protonix (Pantoprazole Sodium) 40 Mg Tablet.dr 40 Mg PO DAILYAC 30 Days Miralax (Polyethylene Glycol 3350) 17 Gm Powd.pack 1 Packet PO DAILY 2 Days dissolve in water Reported D3-50 (Cholecalciferol (Vitamin D3)) 50,000 Unit Capsule 1,000 Unit PO DAILY Propranolol Hcl 40 Mg Tablet 40 Mg PO BID Furosemide 40 Mg Tablet 40 Mg PO BID Eliquis (Apixaban) 5 Mg Tablet 5 Mg PO BID Humalog (Insulin Lispro) 100 Unit/1 Ml Cartridge 100 Unit SQ TIDACHC Lantus (Insulin Glargine,Hum.rec.anlog) 100 Unit/1 Ml Vial 35 Unit SQ HS Hydrocodone-Apap 7.5-325 (Hydrocodone Bit/Acetaminophen) 1 Tab Tablet 1 Tab PO PRN Q6HRS PRN Glimepiride 1 Mg Tablet 1 Mg PO DAILY Simvastatin 40 Mg Tablet 1 Tab PO QHS Fenofibrate 160 Mg Tablet 145 Mg PO HS Propranolol Hcl 40 Mg Tablet 1 Tab PO BID One-Daily Multi-Vitamin (Multivitamin) 1 Each Tablet 1 Tab PO DAILY 30 Days Vitals/I & O Vital Sign - Last 24 Hours 02/24/20 02/24/20 02/24/20 02/24/20 11:00 11:20 12:00 12:00 Temp 98.0 98.0 Pulse 68 66 Resp 20 20 B/P (MAP) 118/63 (81) 111/57 (75) Pulse Ox 96 94 91 O2 Delivery Ventilator Ventilator Mechanical Ventilator Ventilator 02/24/20 02/24/20 02/24/20 02/24/20 13:00 14:00 15:00 15:12 Pulse 62 62 60 Resp 20 20 20 B/P (MAP) 98/53 (68) 99/54 (69) 99/52 (68) Pulse Ox 91 92 92 93 O2 Delivery Ventilator Ventilator Ventilator Ventilator 02/24/20 02/24/20 02/24/20 02/24/20 16:00 16:00 17:00 18:00 Temp 97.9 97.9 Pulse 60 60 64 Resp 20 20 20 B/P (MAP) 100/55 (70) 100/55 (70) 104/55 (71) Pulse Ox 92 92 90 O2 Delivery Ventilator Mechanical Ventilator Ventilator Ventilator 02/24/20 02/24/20 02/24/20 02/24/20 19:00 20:00 20:00 20:00 Temp 98.1 98.1 Pulse 60 62 Resp 20 20 B/P (MAP) 96/52 (67) 102/62 (75) Pulse Ox 91 93 93 O2 Delivery Ventilator Ventilator Ventilator Mechanical Ventilator 02/24/20 02/24/20 02/24/20 02/24/20 21:00 21:00 22:00 23:00 Pulse 57 59 58 56 Resp 20 20 20 B/P (MAP) 97/52 (67) 99/53 99/53 (68) 104/56 (72) Pulse Ox 92 93 92 O2 Delivery Ventilator Ventilator Ventilator 02/25/20 02/25/20 02/25/20 02/25/20 00:00 00:00 00:00 01:00 Temp 97.5 97.5 Pulse 55 54 Resp 20 20 B/P (MAP) 104/58 (73) 103/54 (70) Pulse Ox 94 93 94 O2 Delivery Ventilator Mechanical Ventilator Ventilator Ventilator 02/25/20 02/25/20 02/25/20 02/25/20 02:00 03:00 04:00 04:00 Temp 97.5 97.5 Pulse 53 53 56 Resp 20 20 20 B/P (MAP) 111/57 (75) 107/58 (74) 106/53 (70) Pulse Ox 94 94 96 94 O2 Delivery Ventilator Ventilator Ventilator Ventilator 02/25/20 02/25/20 02/25/20 02/25/20 04:00 05:00 06:00 07:00 Pulse 54 53 56 Resp 20 20 20 B/P (MAP) 96/52 (67) 106/55 (72) 115/71 (86) Pulse Ox 94 93 95 O2 Delivery Mechanical Ventilator Ventilator Ventilator Ventilator 02/25/20 02/25/20 02/25/20 02/25/20 08:00 08:00 09:00 10:00 Temp 97.1 97.1 Pulse 52 54 56 Resp 20 20 20 B/P (MAP) 106/60 (75) 114/57 (76) 102/52 (69) Pulse Ox 95 95 94 O2 Delivery Ventilator Mechanical Ventilator Ventilator Ventilator Intake and Output 02/24/20 02/24/20 02/25/20 15:00 23:00 07:00 Intake Total 650 ml 2145 ml 1483 ml Output Total 500 ml 435 ml 495 ml Balance 150 ml 1710 ml 988 ml Justicifation of Admission Dx: Justifications for Admission: Justification of Admission Dx: Yes RHONDA CORREIA MD Feb 25, 2020 10:17
[2020-02-25 10:27] LABS: FIO2 ABG 60% VENT
--- NOTE | 2020-02-25 12:31 | PDOC ---
Infectious Disease Note Subjective: Subjective Patient intubated/sedated No acute issues per discussion with RN Vital Signs: Vital Signs Vital Signs Date Time Temp Pulse Resp B/P (MAP) Pulse Ox O2 Delivery O2 Flow Rate FiO2 02/25/20 10:00 56 20 102/52 (69) 94 Ventilator 02/25/20 08:00 97.1 97.1 Physical Exam: PHYSICAL EXAM GENERAL: Intubated, sedated male in COVID isolation. HEENT: Normocephalic, atraumatic, anicteric. LUNGS: Clear anteriorly. HEART: S1, S2. ABDOMEN: Obese. Bowel sounds present, nondistended. GENITOURINARY: Scrotal swelling. Yeast in groin [place] in place. EXTREMITIES: Bilateral venous stasis changes present. Wounds present over both lower extremities, hyperkeratotic skin, no cyanosis, no clubbing. DERMATOLOGIC: Warm, dry. No generalized rash except for above. Right internal jugular vein in place. Medications: Inpatient Meds: Current Medications Medications (Trade) Dose Ordered Sig/Dulce Start Time Stop Time Status Last Admin Dose Admin Apixaban (Eliquis) 5 mg BID 02/21/20 21:30 02/22/20 09:28 DC 02/22/20 08:46 5 MG Bisacodyl (Dulcolax Supp) 10 mg PRN DAILY PRN 02/21/20 12:15 Dextrose (Dextrose 50%-Water Syringe) 12.5 gm PRN Q15MIN PRN 02/23/20 08:00 Famotidine (Pepcid Vial) 20 mg BID 02/21/20 13:00 02/21/20 12:53 DC Fenofibrate (Lofibra) 134 mg DAILY 02/22/20 09:00 02/25/20 09:34 134 MG Fentanyl Citrate 55 ml @ 0 mls/hr CONT PRN 02/21/20 11:00 02/25/20 05:51 0.75 MLS/HR Fentanyl Citrate (Fentanyl 2ml Vial) 50 mcg PRN Q1HR PRN 02/21/20 06:45 Furosemide (Lasix) 40 mg DAILY 02/22/20 10:00 02/24/20 09:50 40 MG Influenza Virus Vaccine Quadrival (Fluzone Quad Syringe) 0.5 ml ONCE ONCE 02/22/20 09:00 02/22/20 09:01 DC Info (Anti-Coagulation Monitoring By Pharmacy) 1 each PRN DAILY PRN 02/22/20 08:15 Info (FLU VACCINE SCREEN per RX) 1 each 1X ONCE 02/22/20 00:00 02/22/20 00:01 UNV Info (Icu Electrolyte Protocol) 1 ea DAILY 02/22/20 09:00 02/23/20 09:00 1 EA Insulin Human Lispro (HumaLOG) 0-5 UNITS Q6HRS 02/23/20 12:00 02/25/20 05:52 3 UNITS Linezolid/Dextrose 300 ml @ 300 mls/hr Q12HR 02/22/20 11:30 02/22/20 11:20 DC Magnesium Sulfate 50 ml @ 25 mls/hr PRN DAILY PRN 02/24/20 08:15 Meropenem 500 mg/ Sodium Chloride 50 ml @ 100 mls/hr Q8HRS 02/21/20 14:00 02/22/20 08:19 DC 02/22/20 05:38 100 MLS/HR Micafungin Sodium 100 mg/Dextrose 100 ml @ 100 mls/hr Q24H 02/22/20 12:00 02/24/20 13:21 100 MLS/HR Midazolam HCl 100 ml @ 0 mls/hr CONT PRN 02/21/20 06:45 02/24/20 11:18 DC 02/23/20 21:56 8 MLS/HR Morphine Sulfate (Morphine Sulfate) 4 mg PRN Q1HR PRN 02/21/20 06:45 02/23/20 06:20 DC Multivitamins (Thera M Plus) 1 tab DAILY 02/22/20 09:00 02/22/20 08:44 DC Multivitamins/ Minerals Therapeutic (Centrum Multivit-Mineral Liq) 5 ml DAILY 02/22/20 09:00 02/25/20 09:34 5 ML Ondansetron HCl (Zofran) 4 mg PRN Q6HRS PRN 02/21/20 12:15 Pantoprazole Sodium (PROTONIX VIAL for IV PUSH) 40 mg DAILY 02/22/20 09:00 02/25/20 09:34 40 MG Pantoprazole Sodium (Protonix) 40 mg DAILYAC 02/22/20 07:30 02/21/20 22:27 DC Piperacillin Sod/ Tazobactam Sod (Zosyn Per Pharmacy) 1 each PRN DAILY PRN 02/21/20 12:15 Piperacillin Sod/ Tazobactam Sod 3.375 gm/Sodium Chloride 50 ml @ 100 mls/hr Q6HRS 02/21/20 18:00 02/25/20 05:50 100 MLS/HR Potassium Chloride/Water 100 ml @ 100 mls/hr Q1H 02/23/20 08:00 02/23/20 09:59 DC 02/23/20 09:18 100 MLS/HR Propofol 100 ml @ 0 mls/hr CONT PRN 02/21/20 06:45 02/25/20 07:40 14.2 MLS/HR Propranolol HCl (Inderal) 40 mg BID 02/21/20 21:30 02/22/20 21:03 40 MG Simvastatin (Zocor) 40 mg QHS 02/21/20 21:00 02/24/20 21:09 40 MG Sodium Chloride (Normal Saline Flush) 3 ml QSHIFT PRN 02/21/20 12:15 Cancel Sucralfate (Carafate) 1 gm QID 02/21/20 21:30 02/21/20 22:23 DC Vitamin D (Vitamin D3) 1,000 unit DAILY 02/22/20 09:00 02/25/20 09:34 1,000 UNIT Labs: Lab Laboratory Tests Test 02/24/20 13:25 02/24/20 23:50 02/25/20 05:45 02/25/20 05:48 Glucose (Fingerstick) 206 mg/dL (70-99) 247 mg/dL (70-99) 233 mg/dL (70-99) White Blood Count 5.6 x10^3/uL (4.0-11.0) Red Blood Count 3.23 x10^6/uL (4.30-5.70) Hemoglobin 7.9 g/dL (13.0-17.5) Hematocrit 25.9 % (39.0-53.0) Mean Corpuscular Volume 80 fL (79-100) Mean Corpuscular Hemoglobin 25 pg (25-35) Mean Corpuscular Hemoglobin Concent 31 g/dL (31-37) Red Cell Distribution Width 17.9 % (11.5-14.5) Platelet Count 246 x10^3/uL (140-400) Neutrophils (%) (Auto) 75 % (31-73) Lymphocytes (%) (Auto) 10 % (24-48) Monocytes (%) (Auto) 9 % (0-9) Eosinophils (%) (Auto) 4 % (0-3) Basophils (%) (Auto) 1 % (0-3) Neutrophils # (Auto) 4.2 x10^3/uL (1.8-7.7) Lymphocytes # (Auto) 0.6 x10^3/uL (1.0-4.8) Monocytes # (Auto) 0.5 x10^3/uL (0.0-1.1) Eosinophils # (Auto) 0.2 x10^3/uL (0.0-0.7) Basophils # (Auto) 0.1 x10^3/uL (0.0-0.2) Sodium Level 134 mmol/L (136-145) Potassium Level 3.6 mmol/L (3.5-5.1) Chloride Level 95 mmol/L (98-107) Carbon Dioxide Level 26 mmol/L (21-32) Anion Gap 13 (6-14) Blood Urea Nitrogen 109 mg/dL (8-26) Creatinine 4.9 mg/dL (0.7-1.3) Estimated GFR (Cockcroft-Gault) 11.9 Glucose Level 148 mg/dL (70-99) Calcium Level 9.1 mg/dL (8.5-10.1) Phosphorus Level 6.0 mg/dL (2.6-4.7) Magnesium Level 2.9 mg/dL (1.8-2.4) Albumin 1.8 g/dL (3.4-5.0) Test 02/25/20 08:40 O2 Saturation 90 % (92-99) Arterial Blood pH 7.41 (7.35-7.45) Arterial Blood pCO2 at Patient Temp 49 mmHg (35-46) Arterial Blood pO2 at Patient Temp 64 mmHg (65-108) Arterial Blood HCO3 30 mmol/L (21-28) Arterial Blood Base Excess 5 mmol/L (-3-3) FiO2 60% vent Objective: Assessment: Febrile illness resolved Acute hypoxic respiratory failure status post intubation Encephalopathy likely metabolic NATASHA with underlying CKD Diabetes mellitus Chronic venous stasis with bilateral chronic nonhealing lower extremity wounds with mild superimposed cellulitis Yeast in groin Elevated ammonia , cholelithiasis with distended gb on ct abdomen. History of atrial fibrillation. History of pulmonary embolism and deep venous thrombosis, status post IVC filter. Rapid COVID negative, 02/20. 10. Chronic venous stasis dermatitis, bilateral lower extremities with mild superimposed bilateral lower extremity cellulitis. 11. Congestive heart failure. 12. senior living resident. 13. Elevated D-dimer. 14. Anemia. RECOMMENDATIONS: 1. Discontinue meropenem as the patient does not need 2-beta lactams 2. Continue Zosyn. 3. Add Zyvox and micafungin. 4. Follow up labs and cultures. 5. Continue local wound care. 6. Continue supportive care. 7. GI, Pulmonary, Neurology and Renal team consulte Plan: Plan of Care Continue Zosyn Zyvox and micafungin Follow-up cultures Continue wound care Continue supportive care Monitor labs Discussed with ARTURO FARRIS MD Feb 25, 2020 12:31
[2020-02-25] MEDS: MICAFUNGIN 100 MG in IV DEXTROSE 5% 100ML 100 ML IV SCH (12:34)
--- NOTE | 2020-02-25 13:35 | PDOC ---
DATE OF SERVICE: DOS: DATE: 02/25/20 TIME: 13:29 SUBJECTIVE ROS Follow-up for acute kidney injury plus CKD Patient remains sedated intubated on the ventilator unable to get review of systems from him. Reviewed with the nurse OBJECTIVE Vital Signs Vital Signs Date Time Temp Pulse Resp B/P (MAP) Pulse Ox O2 Delivery O2 Flow Rate FiO2 02/25/20 13:00 54 20 104/55 (71) 94 Ventilator 02/25/20 12:00 97.0 97.0 I & 0 Intake and Output 02/25/20 07:00 Intake Total 4278 ml Output Total 1430 ml Balance 2848 ml Intake IV Total 1398 ml Tube Feeding 2380 ml Other 500 ml Output Urine Total 1430 ml # Bowel Movements 1 PHYSICAL EXAM Physical Exam GEN: Sedated intubated on the vent, In no distress, obese gentleman, appears anasarca EYES: Sclerae anicteric, Conjunctiva Normal EN: No EN Drainage, Mucous Membranes moist, orally intubated NECK: no JVD, no JVP, Supple, no Thyromegaly, thick neck CVS: S1S2, no audible murmur, No Gallop, No Rub,+2 Edema RESP: Rare basal Rales, no rhonchi, no current Acc. Muscle Use while intubated on the vent GI: BS + ve, NO Bruit, Non Tender, Non Distended, morbidly obese : no CVA tenderness, no Suprapubic Tenderness SKIN: No rashes Breast Exam deferred Mu.Sk: Unable to assess for range of motion, no muscle atrophy Heme: Unable to palpate Obvious LAD no palpable splenomegaly NEURO: Unable to assess while sedated intubated on the vent, no asterixis Psych: Unable to assess while sedated intubated on the vent DIAGNOSIS/ASSESSMENT Diagnosis CKD stage 4 -previous creatinines have been in the 2.6-3.0 range. Presumed DM/ HTNsive / NS; No UA avail yet. Urine sodium less than 20. Creat is much worse today. Given anasarca and respiratory failure he may need to start dialysis in the near future BP remain marginal while on sedation. Element of acute kidney injury due to fluid status optimization cannot be ruled out Acute respiratory failure: Remains sedated and intubated on the Vent . noted recent Cxr . ABGs from this am noted. Continue diuresis for negative fluid balance Pleural effusion- Small to moderate right and probable small left pleural effusion noted on most recent CXR, defer to PUlm to assess for thoracentesis. Continue diuresis Anasarca: Continue diuresis. Unclear if some of this is due to fatty liver/Foster. Await UA to assess for proteinuria. Obesity and pulmonary hypertension may be contributing to the same. PA pressure of 50 on echocardiogram Anemia in the setting of renal failure, iron deficiency state: IV iron as well as EPO as ordered Diffuse hepatic steatosis : defered to Primary team/ GI. May be contributing some to anasarca and edema DM II- per primary Alkalosis - remains on Lasix - defer to Pulm to eval for persistent fluid overload vs other etio of pulm infiltrates. Hx DVT/PE. S/p IVC filter. It is unclear if IVC filter thrombosis may be contributing some to lower extremity edema and anasarca also. Morbid obesity with obstructive sleep apnea AMS at presentation was [place] to be due to elevated ammonia level. Uremia cannot be ruled out Dw RN. Family aware of upcoming need for initiation of dialysis COMMENT/RELEVANT DATA Meds Current Medications Medications (Trade) Dose Ordered Sig/Dulce Start Time Stop Time Status Last Admin Dose Admin Apixaban (Eliquis) 5 mg BID 02/21/20 21:30 02/22/20 09:28 DC 02/22/20 08:46 5 MG Bisacodyl (Dulcolax Supp) 10 mg PRN DAILY PRN 02/21/20 12:15 Dextrose (Dextrose 50%-Water Syringe) 12.5 gm PRN Q15MIN PRN 02/23/20 08:00 Famotidine (Pepcid Vial) 20 mg BID 02/21/20 13:00 02/21/20 12:53 DC Fenofibrate (Lofibra) 134 mg DAILY 02/22/20 09:00 02/25/20 09:34 134 MG Fentanyl Citrate 55 ml @ 0 mls/hr CONT PRN 02/21/20 11:00 02/25/20 05:51 0.75 MLS/HR Fentanyl Citrate (Fentanyl 2ml Vial) 50 mcg PRN Q1HR PRN 02/21/20 06:45 Furosemide (Lasix) 40 mg DAILY 02/22/20 10:00 02/24/20 09:50 40 MG Influenza Virus Vaccine Quadrival (Fluzone Quad 5850-1908 Syringe) 0.5 ml ONCE ONCE 02/22/20 09:00 02/22/20 09:01 DC Info (Anti-Coagulation Monitoring By Pharmacy) 1 each PRN DAILY PRN 02/22/20 08:15 Info (FLU VACCINE SCREEN per RX) 1 each 1X ONCE 02/22/20 00:00 02/22/20 00:01 UNV Info (Icu Electrolyte Protocol) 1 ea DAILY 02/22/20 09:00 02/23/20 09:00 1 EA Insulin Human Lispro (HumaLOG) 0-5 UNITS Q6HRS 02/23/20 12:00 02/25/20 12:36 4 UNITS Linezolid/Dextrose 300 ml @ 300 mls/hr Q12HR 02/22/20 11:30 02/22/20 11:20 DC Magnesium Sulfate 50 ml @ 25 mls/hr PRN DAILY PRN 02/24/20 08:15 Meropenem 500 mg/ Sodium Chloride 50 ml @ 100 mls/hr Q8HRS 02/21/20 14:00 02/22/20 08:19 DC 02/22/20 05:38 100 MLS/HR Micafungin Sodium 100 mg/Dextrose 100 ml @ 100 mls/hr Q24H 02/22/20 12:00 02/25/20 12:34 100 MLS/HR Midazolam HCl 100 ml @ 0 mls/hr CONT PRN 02/21/20 06:45 02/24/20 11:18 DC 02/23/20 21:56 8 MLS/HR Morphine Sulfate (Morphine Sulfate) 4 mg PRN Q1HR PRN 02/21/20 06:45 02/23/20 06:20 DC Multivitamins (Thera M Plus) 1 tab DAILY 02/22/20 09:00 02/22/20 08:44 DC Multivitamins/ Minerals Therapeutic (Centrum Multivit-Mineral Liq) 5 ml DAILY 02/22/20 09:00 02/25/20 09:34 5 ML Ondansetron HCl (Zofran) 4 mg PRN Q6HRS PRN 02/21/20 12:15 Pantoprazole Sodium (PROTONIX VIAL for IV PUSH) 40 mg DAILY 02/22/20 09:00 02/25/20 09:34 40 MG Pantoprazole Sodium (Protonix) 40 mg DAILYAC 02/22/20 07:30 02/21/20 22:27 DC Piperacillin Sod/ Tazobactam Sod (Zosyn Per Pharmacy) 1 each PRN DAILY PRN 02/21/20 12:15 Piperacillin Sod/ Tazobactam Sod 3.375 gm/Sodium Chloride 50 ml @ 100 mls/hr Q6HRS 02/21/20 18:00 02/25/20 12:34 100 MLS/HR Potassium Chloride/Water 100 ml @ 100 mls/hr Q1H 02/23/20 08:00 02/23/20 09:59 DC 02/23/20 09:18 100 MLS/HR Propofol 100 ml @ 0 mls/hr CONT PRN 02/21/20 06:45 02/25/20 07:40 14.2 MLS/HR Propranolol HCl (Inderal) 40 mg BID 02/21/20 21:30 02/22/20 21:03 40 MG Simvastatin (Zocor) 40 mg QHS 02/21/20 21:00 02/24/20 21:09 40 MG Sodium Chloride (Normal Saline Flush) 3 ml QSHIFT PRN 02/21/20 12:15 Cancel Sucralfate (Carafate) 1 gm QID 02/21/20 21:30 02/21/20 22:23 DC Vitamin D (Vitamin D3) 1,000 unit DAILY 02/22/20 09:00 02/25/20 09:34 1,000 UNIT Lab Laboratory Tests Test 02/24/20 23:50 02/25/20 05:45 02/25/20 05:48 02/25/20 08:40 Glucose (Fingerstick) 247 mg/dL (70-99) 233 mg/dL (70-99) White Blood Count 5.6 x10^3/uL (4.0-11.0) Red Blood Count 3.23 x10^6/uL (4.30-5.70) Hemoglobin 7.9 g/dL (13.0-17.5) Hematocrit 25.9 % (39.0-53.0) Mean Corpuscular Volume 80 fL (79-100) Mean Corpuscular Hemoglobin 25 pg (25-35) Mean Corpuscular Hemoglobin Concent 31 g/dL (31-37) Red Cell Distribution Width 17.9 % (11.5-14.5) Platelet Count 246 x10^3/uL (140-400) Neutrophils (%) (Auto) 75 % (31-73) Lymphocytes (%) (Auto) 10 % (24-48) Monocytes (%) (Auto) 9 % (0-9) Eosinophils (%) (Auto) 4 % (0-3) Basophils (%) (Auto) 1 % (0-3) Neutrophils # (Auto) 4.2 x10^3/uL (1.8-7.7) Lymphocytes # (Auto) 0.6 x10^3/uL (1.0-4.8) Monocytes # (Auto) 0.5 x10^3/uL (0.0-1.1) Eosinophils # (Auto) 0.2 x10^3/uL (0.0-0.7) Basophils # (Auto) 0.1 x10^3/uL (0.0-0.2) Sodium Level 134 mmol/L (136-145) Potassium Level 3.6 mmol/L (3.5-5.1) Chloride Level 95 mmol/L (98-107) Carbon Dioxide Level 26 mmol/L (21-32) Anion Gap 13 (6-14) Blood Urea Nitrogen 109 mg/dL (8-26) Creatinine 4.9 mg/dL (0.7-1.3) Estimated GFR (Cockcroft-Gault) 11.9 Glucose Level 148 mg/dL (70-99) Calcium Level 9.1 mg/dL (8.5-10.1) Phosphorus Level 6.0 mg/dL (2.6-4.7) Magnesium Level 2.9 mg/dL (1.8-2.4) Albumin 1.8 g/dL (3.4-5.0) O2 Saturation 90 % (92-99) Arterial Blood pH 7.41 (7.35-7.45) Arterial Blood pCO2 at Patient Temp 49 mmHg (35-46) Arterial Blood pO2 at Patient Temp 64 mmHg (65-108) Arterial Blood HCO3 30 mmol/L (21-28) Arterial Blood Base Excess 5 mmol/L (-3-3) FiO2 60% vent Test 02/25/20 12:35 Glucose (Fingerstick) 282 mg/dL (70-99) Results All relevant outside records, renal labs, imaging studies, telemetry/EKG's were reviewed. Other Most recent chest x-ray from 02/24/2020 IMPRESSION: 1. No stable change in diffuse mixed interstitial and alveolar infiltrate and small to moderate pleural effusions. 2. Support lines and tubes, described above. Justicifation of Admission Dx: Justifications for Admission: Justification of Admission Dx: Yes FELIBERTO BURRIS MD Feb 25, 2020 13:35
[2020-02-25 14:48] LABS: BILIRUBIN,URINE NEGATIVE (NEG); CLARITY,URINE CLEAR; COLOR,URINE YELLOW; NITRITE,URINE NEGATIVE (NEG); PROTEIN,URINE NEGATIVE (NEG-TRACE)
[2020-02-25 15:00] LABS: AMORPHOUS SEDIMENT,UR PRESENT /HPF; BACTERIA,URINE 0 /HPF (0-FEW); RBC,URINE >40 /HPF (0-2)
[2020-02-25] MEDS ORDERED: LIDOCAINE WITH 8.4% SOD BICARB 3 ML DISP.SYRIN. ONE (15:37)
[2020-02-25] MEDS ORDERED: LIDOCAINE WITH 8.4% SOD BICARB 3 ML DISP.SYRIN. INJ ONE (16:45)
--- NOTE | 2020-02-25 16:53 | RAD ---
Exam: Chest one view INDICATION: Temporary dialysis catheter inserted TECHNIQUE: Frontal view of the chest Comparisons: 02/24/2020 FINDINGS: Enteric tube traverses below the diaphragm distal extent not visualized. There is a right IJ catheter with tip in the SVC. Right sided double-lumen catheter is seen with tip likely at the atrial caval junction. Heart is mildly enlarged. Hazy opacities lungs bilaterally. Moderate bilateral pleural effusions. IMPRESSION: 1. Lines and tubes described above. 2. Findings likely related to pulmonary edema with moderate bilateral pleural effusions. Electronically signed by: Zane Harrison MD (02/25/2020 4:50 PM) FRANCIS
[2020-02-25] MEDS ORDERED: DIALYSIS PATIENT. MC PRN ×2 (20:00)
[2020-02-25] MEDS ORDERED: ALBUMIN HUMAN 25% 200 ML IV PRN (20:00)
[2020-02-25] MEDS ORDERED: 0.9 % SODIUM CHLORIDE 10 ML DISP.SYRIN. IV PRN ×2 (20:00)
[2020-02-25] MEDS ORDERED: IV NORMAL SALINE 1000ML BAG 1,000 ML IV PRN ×2 (20:00)
[2020-02-25] MEDS: SIMVASTATIN 40 MG TABLET. PO SCH (20:31)
[2020-02-25] MEDS ORDERED: DARBEPOETIN ALFA 60 MCG/0.3 ML DISP.SYRIN. SQ SCH (21:00)
[2020-02-26] VITALS (24 sets, daily range): BP systolic 104–143; BP diastolic 52–67
[2020-02-26] MEDS: PIPERACILLIN/TAZOBACTAM 3.375 GM in IV NORMAL SALINE 50ML 50 ML IV SCH ×4 (00:14→17:59)
[2020-02-26] MEDS: INSULIN LISPRO 300 UNITS/3 ML VIAL. SQ SCH ×4 (00:17→18:31)
[2020-02-26] MEDS: PROPOFOL 100 ML IV PRN ×4 (05:11→22:06)
[2020-02-26 06:10] LABS: BASO # 0.1 x10^3/uL (0.0-0.2); BASO % 1 % (0-3); EOS # 0.2 x10^3/uL (0.0-0.7); EOS % 4 % (0-3); HEMATOCRIT 27.4 % (39.0-53.0); HEMOGLOBIN 8.5 g/dL (13.0-17.5); LYMPH # 0.5 x10^3/uL (1.0-4.8); LYMPH % 11 % (24-48); MEAN CORPUSCULAR HEMOGLOBIN 25 pg (25-35); MEAN CORPUSCULAR HGB CONC 31 g/dL (31-37); MEAN CORPUSCULAR VOLUME 80 fL (79-100); MONO # 0.4 x10^3/uL (0.0-1.1); MONO % 9 % (0-9); NEUT # 3.8 x10^3/uL (1.8-7.7); NEUT % 75 % (31-73); PLATELET COUNT 276 x10^3/uL (140-400); RED BLOOD COUNT 3.41 x10^6/uL (4.30-5.70); RED CELL DISTRIBUTION WIDTH 17.7 % (11.5-14.5); WHITE BLOOD COUNT 5.1 x10^3/uL (4.0-11.0)
[2020-02-26 06:47] LABS: ALBUMIN 1.6 g/dL (3.4-5.0); CALCIUM 8.4 mg/dL (8.5-10.1); CREATININE 2.5 mg/dL (0.7-1.3); GFR 25.8; PHOSPHORUS 5.2 mg/dL (2.6-4.7); POTASSIUM 4.7 mmol/L (3.5-5.1)
[2020-02-26] MEDS: PANTOPRAZOLE IV PUSH 40 MG VIAL. IVP SCH (07:45)
[2020-02-26] MEDS: CHOLECALCIFEROL (VITAMIN D3) 1,000 UNIT TABLET PO SCH (07:46)
[2020-02-26] MEDS: FUROSEMIDE 40 MG/4 ML VIAL. IVP SCH ×4 (07:46→21:28)
[2020-02-26] MEDS: PROPRANOLOL 40 MG TABLET. PO SCH ×2 (07:46→21:26)
[2020-02-26] MEDS: MULTIVITAMINS,THERAPEUTIC 5 ML ORAL LIQUID. PEG SCH (07:46)
[2020-02-26] MEDS: FENOFIBRATE,MICRONIZED 134 MG CAPSULE PO SCH (07:46)
[2020-02-26] MEDS: ELECTROLYTE (ICU) PROTOCOL. MC SCH (07:47)
[2020-02-26 07:58] LABS: BASE EXCESS ABG 3 mmol/L (-3-3); HCO3 ABG 30 mmol/L (21-28); PCO2 ABG 57 mmHg (35-46); PO2 ABG 60 mmHg (65-108); SAT O2 ABG 88 % (92-99)
[2020-02-26 08:04] LABS: FIO2 ABG 70% VENT
[2020-02-26] MEDS ORDERED: IV NORMAL SALINE 1000ML BAG 1,000 ML IV PRN ×2 (10:00)
[2020-02-26] MEDS ORDERED: ALBUMIN HUMAN 25% 200 ML IV PRN (10:00)
[2020-02-26] MEDS ORDERED: DIALYSIS PATIENT. MC PRN ×2 (10:00)
--- NOTE | 2020-02-26 10:49 | PDOC ---
OBJECTIVE Vital Signs Vital Signs Date Time Temp Pulse Resp B/P (MAP) Pulse Ox O2 Delivery O2 Flow Rate FiO2 02/26/20 10:00 94 22 123/57 (79) 90 Ventilator 02/26/20 09:00 89 20 119/56 (77) 90 Ventilator 02/26/20 08:00 Mechanical Ventilator 02/26/20 08:00 98.3 90 20 121/53 (75) 91 Ventilator 98.3 02/26/20 07:46 96 111/60 02/26/20 07:27 92 Ventilator 02/26/20 07:00 94 20 111/60 (77) 91 Ventilator 02/26/20 06:00 77 20 137/66 (89) 92 Ventilator 02/26/20 05:00 81 20 134/67 (89) 92 Ventilator 02/26/20 04:00 Mechanical Ventilator 02/26/20 04:00 98.1 77 20 120/59 (79) 91 Ventilator 98.1 02/26/20 03:54 93 Ventilator 02/26/20 03:00 69 20 108/58 (75) 93 Ventilator 02/26/20 02:00 69 20 116/59 (78) 94 Ventilator 02/26/20 01:00 74 20 127/63 (84) 94 Ventilator 02/26/20 00:00 68 20 104/55 (71) 94 Ventilator 02/26/20 00:00 Mechanical Ventilator 02/25/20 23:07 91 Ventilator 02/25/20 23:00 97.1 59 20 106/58 (74) 90 Ventilator 97.1 02/25/20 22:00 54 20 106/57 (73) 91 Ventilator 02/25/20 21:00 56 20 102/56 (71) 92 Ventilator 02/25/20 21:00 56 102/56 02/25/20 20:32 92 Ventilator 02/25/20 20:00 Mechanical Ventilator 02/25/20 20:00 94.4 54 20 111/59 (76) 92 Ventilator 94.4 02/25/20 19:00 54 20 114/62 (79) 92 Ventilator 02/25/20 18:00 53 20 114/60 (78) 91 Ventilator 02/25/20 17:00 56 20 105/61 (76) 93 Ventilator 02/25/20 16:00 97.2 59 20 131/69 (89) 97 Ventilator 97.2 02/25/20 16:00 Mechanical Ventilator 02/25/20 15:10 90 Ventilator 02/25/20 15:00 54 20 101/54 (70) 90 Ventilator 02/25/20 14:00 54 20 111/57 (75) 89 Ventilator 02/25/20 13:00 54 20 104/55 (71) 94 Ventilator 02/25/20 12:00 97.0 56 20 106/53 (70) 93 Ventilator 97.0 02/25/20 12:00 93 Ventilator 02/25/20 12:00 Mechanical Ventilator 02/25/20 11:00 52 20 104/55 (71) 93 Ventilator I & O Intake and Output 02/26/20 07:00 Intake Total 2684 ml Output Total 2310 ml Balance 374 ml Intake IV Total 871 ml Tube Feeding 1613 ml Other 200 ml Output Urine Total 1860 ml Stool Total 450 ml COMMENT Lab Laboratory Tests Test 02/25/20 12:35 02/25/20 13:40 02/25/20 18:09 02/26/20 00:12 Glucose (Fingerstick) 282 mg/dL (70-99) 244 mg/dL (70-99) 314 mg/dL (70-99) Urine Collection Type Unknown Urine Color Yellow Urine Clarity Clear Urine pH 6.0 (<5.0-8.0) Urine Specific [place] 1.015 (1.000-1.030) Urine Protein Negative mg/dL (NEG-TRACE) Urine Glucose (UA) 100 mg/dL (NEG) Urine Ketones (Stick) Negative mg/dL (NEG) Urine Blood Small (NEG) Urine Nitrite Negative (NEG) Urine Bilirubin Negative (NEG) Urine Urobilinogen Dipstick 1.0 mg/dL (0.2 mg/dL) Urine Leukocyte Esterase Small (NEG) Urine RBC >40 /HPF (0-2) Urine WBC 1-4 /HPF (0-4) Urine Amorphous Sediment Present /HPF Urine Bacteria 0 /HPF (0-FEW) Test 02/26/20 05:50 02/26/20 05:55 02/26/20 07:40 White Blood Count 5.1 x10^3/uL (4.0-11.0) Red Blood Count 3.41 x10^6/uL (4.30-5.70) Hemoglobin 8.5 g/dL (13.0-17.5) Hematocrit 27.4 % (39.0-53.0) Mean Corpuscular Volume 80 fL (79-100) Mean Corpuscular Hemoglobin 25 pg (25-35) Mean Corpuscular Hemoglobin Concent 31 g/dL (31-37) Red Cell Distribution Width 17.7 % (11.5-14.5) Platelet Count 276 x10^3/uL (140-400) Neutrophils (%) (Auto) 75 % (31-73) Lymphocytes (%) (Auto) 11 % (24-48) Monocytes (%) (Auto) 9 % (0-9) Eosinophils (%) (Auto) 4 % (0-3) Basophils (%) (Auto) 1 % (0-3) Neutrophils # (Auto) 3.8 x10^3/uL (1.8-7.7) Lymphocytes # (Auto) 0.5 x10^3/uL (1.0-4.8) Monocytes # (Auto) 0.4 x10^3/uL (0.0-1.1) Eosinophils # (Auto) 0.2 x10^3/uL (0.0-0.7) Basophils # (Auto) 0.1 x10^3/uL (0.0-0.2) Sodium Level 142 mmol/L (136-145) Potassium Level 4.7 mmol/L (3.5-5.1) Chloride Level 103 mmol/L (98-107) Carbon Dioxide Level 33 mmol/L (21-32) Anion Gap 6 (6-14) Blood Urea Nitrogen 50 mg/dL (8-26) Creatinine 2.5 mg/dL (0.7-1.3) Estimated GFR (Cockcroft-Gault) 25.8 Glucose Level 290 mg/dL (70-99) Calcium Level 8.4 mg/dL (8.5-10.1) Phosphorus Level 5.2 mg/dL (2.6-4.7) Magnesium Level 2.2 mg/dL (1.8-2.4) Albumin 1.6 g/dL (3.4-5.0) Glucose (Fingerstick) 277 mg/dL (70-99) O2 Saturation 88 % (92-99) Arterial Blood pH 7.34 (7.35-7.45) Arterial Blood pCO2 at Patient Temp 57 mmHg (35-46) Arterial Blood pO2 at Patient Temp 60 mmHg (65-108) Arterial Blood HCO3 30 mmol/L (21-28) Arterial Blood Base Excess 3 mmol/L (-3-3) FiO2 70% vent Justifications for Admission Other Justification resp failure RHONDA CORREIA MD Feb 26, 2020 10:49
--- NOTE | 2020-02-26 10:50 | PDOC ---
PROGRESS NOTES Date of Service: DATE: 02/26/20 TIME: 10:50 Chief Complaint Chief Complaint VTE Prophylaxis Ordered VTE Prophylaxis Devices: Yes VTE Pharmacological Prophylaxi: Yes Assessment/Plan Assessment/Plan impression 1. Acute hypoxic / severe hypercapnic respiratory failure, 2. Chronic obstructive pulmonary disease. 3. Type 2 diabetes mellitus with peripheral neuropathy. 4. Hypertension. 5. Hyperlipidemia. 6. atrial fibrillation 7. History of deep vein thrombosis and pulmonary emboli x 3 for which he was on Coumadin. has now an inferior vena cava filter. Placement of retrievable IVC filter 11/12 8. bilateral lower extremity //chronic venous stasis dermatitis 9. morbid obesity 10. PUI COVID 19 11. 4 mm non bleeding antral gastric ulcer and erosive gastritis (bx) 11/12 12. NATASHA 13, ISCHEMIC CVD CT HEAD 14. CODE STROKE IN ER 15. ACUTE METABOLIC ENCEPHALOPATHY 16, POSSIBLE ASPIRATION, PNEUMONIA, SHOCK 17. Distended gallbladder, pericholecystic fluid and gallstones. Findings are equivocal for acute cholecystitis. 18. Diffuse hepatic steatosis. 19. Temporary dialysis catheter inserted 02-25-20 Scrotal swelling. Yeast in groin [place] BLOOD CULTURE Final NO GROWTH AFTER 5 DAYS 02-26-20 plan icu bed pulm consult cardiology consult GI CONSULT NEPHROLOGY CONSULT Neurology consult ID CONSULT ECHO d/c meropenem Continue Zosyn. Add Zyvox and micafungin. remains full code 37 MIN CC TIME BLOOD CULTURE Final NO GROWTH AFTER 5 DAYS 02-26-20 History of Present Illness History of Present Illness Identification/Chief Complaint Chief Complaint RESP FAILURE, TRANSFER [facility] covid 19 rapid neg History of Present Illness History of Present Illness 69 yr old male, transfer from [place] due to AMS, required vent support for respiratory failure BECAME HYPOXIC 0330, INTUBATED IN ER, WAS OBTUNDED, HAD ELEVATED D-DIMER BUN 32, CR 2.1 UDS NEG, PRO-BNP 5556 WAS CODE STROKE ON PRESENTATION DUE TO AMS RESIDENT OF [facility] , admitted by DR CASTANEDA HERE ON NOV 2019 D DIMER 1.82 BUT RENAL FX PROHIBITS CTA CHEST, DEFER TO PULM poor candidate for long-term anticoagulation. WAS outpatient referral for [facility] by cardiology Past Medical History Past Medical History PAST MEDICAL HISTORY: Positive for diabetes mellitus, hypertension, obesity, obstructive lung disease, hyperlipidemia, peripheral vascular disease, neuropathy, pulmonary embolism, venous stasis dermatitis. SOCIAL HISTORY: Negative for smoking, alcohol, or illicit drug use. ALLERGIES: LISTED ALLERGIC TO INSULIN AND CHLORDIAZEPOXIDE. CURRENT MEDICATIONS: Reviewed. Cardiovascular: AFIB, HTN, Hyperlipidemia Pulmonary: COPD, Pulmonary embolus GI: GERD Heme/Onc: No pertinent hx Hepatobiliary: No pertinent hx Psych: No pertinent hx Musculoskeletal: Osteoarthritis Rheumatologic: No pertinent hx Infectious disease: No pertinent hx Renal/: Chronic renal insuff Endocrine: Diabetes Past Surgical History Past Surgical History: Other Family History Family History: Diabetes, Hypertension Social History Smoke: <1 pack per day ALCOHOL: rare Drugs: None Current Medications Vitals Vitals Vital Signs Date Time Temp Pulse Resp B/P (MAP) Pulse Ox O2 Delivery O2 Flow Rate FiO2 02/26/20 10:00 94 22 123/57 (79) 90 Ventilator 02/26/20 08:00 98.3 98.3 Physical Exam Physical Exam GENERAL: Intubated, sedated male in COVID isolation. HEENT: Normocephalic, atraumatic, anicteric. LUNGS: Clear anteriorly. HEART: S1, S2. ABDOMEN: Obese. Bowel sounds present, nondistended. GENITOURINARY: Scrotal swelling. Yeast in groin [place] in place. EXTREMITIES: Bilateral venous stasis changes present. Wounds present over both lower extremities, hyperkeratotic skin, no cyanosis, no clubbing. DERMATOLOGIC: Warm, dry. No generalized rash except for above. Right internal jugular vein in place. BLOOD CULTURE Final NO GROWTH AFTER 5 DAYS 1-03 General: Other (Intubated.) Heart: Regular rate Lungs: Clear Abdomen: Normal bowel sounds Extremities: Other (1+ bilateral LE edema. Chronic bilateral LE venous stasis dermatitis ) Labs LABS PATIENT: RHONDA BRIONES ACCT: [id number] LOC: 1 WEST ICU U: [id number] AGE/SX: 69/M ROOM: 102 RE02/21/[address]: VIBHA MARRERO III, DO : 1950 BED: 1 DIS: STATUS: ADM IN TLOC: SPEC #: [id number] DESTINEY: 02/21/20-1250 STATUS: COMP REQ #: [id number] RECD: 02/21/20-[address]: RHONDA CORREIA MD SOURCE: BLOOD ENTR: 02/21/20-[address]: CHRISTINA BRADSHAW MD SPDESC: VIBHA MARRERO III, PETER J MD GOEL,MULUGETA WEINER,FAIZAN ALMARAZ,CHRISTIE GALVEZ,ROBERT Rodrigues MD ORDERED: BCULT Procedure Result BLOOD CULTURE Final NO GROWTH AFTER 5 DAYS Exam: Chest one view INDICATION: Temporary dialysis catheter inserted TECHNIQUE: Frontal view of the chest Comparisons: 02/24/2020 FINDINGS: Enteric tube traverses below the diaphragm distal extent not visualized. There is a right IJ catheter with tip in the SVC. Right sided double-lumen catheter is seen with tip likely at the atrial caval junction. Heart is mildly enlarged. Hazy opacities lungs bilaterally. Moderate bilateral pleural effusions. IMPRESSION: 1. Lines and tubes described above. 2. Findings likely related to pulmonary edema with moderate bilateral pleural effusions. Electronically signed by: Zane King MD (02/25/2020 4:50 PM) [facility] DICTATED and SIGNED BY: ZANE KING MD DATE: 02/25/20 [id number] Laboratory Tests Test 02/25/20 12:35 02/25/20 13:40 02/25/20 18:09 02/26/20 00:12 Glucose (Fingerstick) 282 mg/dL (70-99) 244 mg/dL (70-99) 314 mg/dL (70-99) Urine Collection Type Unknown Urine Color Yellow Urine Clarity Clear Urine pH 6.0 (<5.0-8.0) Urine Specific [place] 1.015 (1.000-1.030) Urine Protein Negative mg/dL (NEG-TRACE) Urine Glucose (UA) 100 mg/dL (NEG) Urine Ketones (Stick) Negative mg/dL (NEG) Urine Blood Small (NEG) Urine Nitrite Negative (NEG) Urine Bilirubin Negative (NEG) Urine Urobilinogen Dipstick 1.0 mg/dL (0.2 mg/dL) Urine Leukocyte Esterase Small (NEG) Urine RBC >40 /HPF (0-2) Urine WBC 1-4 /HPF (0-4) Urine Amorphous Sediment Present /HPF Urine Bacteria 0 /HPF (0-FEW) Test 02/26/20 05:50 02/26/20 05:55 02/26/20 07:40 White Blood Count 5.1 x10^3/uL (4.0-11.0) Red Blood Count 3.41 x10^6/uL (4.30-5.70) Hemoglobin 8.5 g/dL (13.0-17.5) Hematocrit 27.4 % (39.0-53.0) Mean Corpuscular Volume 80 fL (79-100) Mean Corpuscular Hemoglobin 25 pg (25-35) Mean Corpuscular Hemoglobin Concent 31 g/dL (31-37) Red Cell Distribution Width 17.7 % (11.5-14.5) Platelet Count 276 x10^3/uL (140-400) Neutrophils (%) (Auto) 75 % (31-73) Lymphocytes (%) (Auto) 11 % (24-48) Monocytes (%) (Auto) 9 % (0-9) Eosinophils (%) (Auto) 4 % (0-3) Basophils (%) (Auto) 1 % (0-3) Neutrophils # (Auto) 3.8 x10^3/uL (1.8-7.7) Lymphocytes # (Auto) 0.5 x10^3/uL (1.0-4.8) Monocytes # (Auto) 0.4 x10^3/uL (0.0-1.1) Eosinophils # (Auto) 0.2 x10^3/uL (0.0-0.7) Basophils # (Auto) 0.1 x10^3/uL (0.0-0.2) Sodium Level 142 mmol/L (136-145) Potassium Level 4.7 mmol/L (3.5-5.1) Chloride Level 103 mmol/L (98-107) Carbon Dioxide Level 33 mmol/L (21-32) Anion Gap 6 (6-14) Blood Urea Nitrogen 50 mg/dL (8-26) Creatinine 2.5 mg/dL (0.7-1.3) Estimated GFR (Cockcroft-Gault) 25.8 Glucose Level 290 mg/dL (70-99) Calcium Level 8.4 mg/dL (8.5-10.1) Phosphorus Level 5.2 mg/dL (2.6-4.7) Magnesium Level 2.2 mg/dL (1.8-2.4) Albumin 1.6 g/dL (3.4-5.0) Glucose (Fingerstick) 277 mg/dL (70-99) O2 Saturation 88 % (92-99) Arterial Blood pH 7.34 (7.35-7.45) Arterial Blood pCO2 at Patient Temp 57 mmHg (35-46) Arterial Blood pO2 at Patient Temp 60 mmHg (65-108) Arterial Blood HCO3 30 mmol/L (21-28) Arterial Blood Base Excess 3 mmol/L (-3-3) FiO2 70% vent Comment Review of Relevant I have reviewed the following items megan (where applicable) has been applied. Labs Laboratory Tests Test 02/24/20 13:25 02/24/20 23:50 02/25/20 05:45 02/25/20 05:48 Glucose (Fingerstick) 206 mg/dL (70-99) 247 mg/dL (70-99) 233 mg/dL (70-99) White Blood Count 5.6 x10^3/uL (4.0-11.0) Red Blood Count 3.23 x10^6/uL (4.30-5.70) Hemoglobin 7.9 g/dL (13.0-17.5) Hematocrit 25.9 % (39.0-53.0) Mean Corpuscular Volume 80 fL (79-100) Mean Corpuscular Hemoglobin 25 pg (25-35) Mean Corpuscular Hemoglobin Concent 31 g/dL (31-37) Red Cell Distribution Width 17.9 % (11.5-14.5) Platelet Count 246 x10^3/uL (140-400) Neutrophils (%) (Auto) 75 % (31-73) Lymphocytes (%) (Auto) 10 % (24-48) Monocytes (%) (Auto) 9 % (0-9) Eosinophils (%) (Auto) 4 % (0-3) Basophils (%) (Auto) 1 % (0-3) Neutrophils # (Auto) 4.2 x10^3/uL (1.8-7.7) Lymphocytes # (Auto) 0.6 x10^3/uL (1.0-4.8) Monocytes # (Auto) 0.5 x10^3/uL (0.0-1.1) Eosinophils # (Auto) 0.2 x10^3/uL (0.0-0.7) Basophils # (Auto) 0.1 x10^3/uL (0.0-0.2) Sodium Level 134 mmol/L (136-145) Potassium Level 3.6 mmol/L (3.5-5.1) Chloride Level 95 mmol/L (98-107) Carbon Dioxide Level 26 mmol/L (21-32) Anion Gap 13 (6-14) Blood Urea Nitrogen 109 mg/dL (8-26) Creatinine 4.9 mg/dL (0.7-1.3) Estimated GFR (Cockcroft-Gault) 11.9 Glucose Level 148 mg/dL (70-99) Calcium Level 9.1 mg/dL (8.5-10.1) Phosphorus Level 6.0 mg/dL (2.6-4.7) Magnesium Level 2.9 mg/dL (1.8-2.4) Albumin 1.8 g/dL (3.4-5.0) Hepatitis B Surface Antigen Nonreactive (Nonreactive) Test 02/25/20 08:40 02/25/20 12:35 02/25/20 13:40 02/25/20 18:09 O2 Saturation 90 % (92-99) Arterial Blood pH 7.41 (7.35-7.45) Arterial Blood pCO2 at Patient Temp 49 mmHg (35-46) Arterial Blood pO2 at Patient Temp 64 mmHg (65-108) Arterial Blood HCO3 30 mmol/L (21-28) Arterial Blood Base Excess 5 mmol/L (-3-3) FiO2 60% vent Glucose (Fingerstick) 282 mg/dL (70-99) 244 mg/dL (70-99) Urine Collection Type Unknown Urine Color Yellow Urine Clarity Clear Urine pH 6.0 (<5.0-8.0) Urine Specific [place] 1.015 (1.000-1.030) Urine Protein Negative mg/dL (NEG-TRACE) Urine Glucose (UA) 100 mg/dL (NEG) Urine Ketones (Stick) Negative mg/dL (NEG) Urine Blood Small (NEG) Urine Nitrite Negative (NEG) Urine Bilirubin Negative (NEG) Urine Urobilinogen Dipstick 1.0 mg/dL (0.2 mg/dL) Urine Leukocyte Esterase Small (NEG) Urine RBC >40 /HPF (0-2) Urine WBC 1-4 /HPF (0-4) Urine Amorphous Sediment Present /HPF Urine Bacteria 0 /HPF (0-FEW) Test 02/26/20 00:12 02/26/20 05:50 02/26/20 05:55 02/26/20 07:40 Glucose (Fingerstick) 314 mg/dL (70-99) 277 mg/dL (70-99) White Blood Count 5.1 x10^3/uL (4.0-11.0) Red Blood Count 3.41 x10^6/uL (4.30-5.70) Hemoglobin 8.5 g/dL (13.0-17.5) Hematocrit 27.4 % (39.0-53.0) Mean Corpuscular Volume 80 fL (79-100) Mean Corpuscular Hemoglobin 25 pg (25-35) Mean Corpuscular Hemoglobin Concent 31 g/dL (31-37) Red Cell Distribution Width 17.7 % (11.5-14.5) Platelet Count 276 x10^3/uL (140-400) Neutrophils (%) (Auto) 75 % (31-73) Lymphocytes (%) (Auto) 11 % (24-48) Monocytes (%) (Auto) 9 % (0-9) Eosinophils (%) (Auto) 4 % (0-3) Basophils (%) (Auto) 1 % (0-3) Neutrophils # (Auto) 3.8 x10^3/uL (1.8-7.7) Lymphocytes # (Auto) 0.5 x10^3/uL (1.0-4.8) Monocytes # (Auto) 0.4 x10^3/uL (0.0-1.1) Eosinophils # (Auto) 0.2 x10^3/uL (0.0-0.7) Basophils # (Auto) 0.1 x10^3/uL (0.0-0.2) Sodium Level 142 mmol/L (136-145) Potassium Level 4.7 mmol/L (3.5-5.1) Chloride Level 103 mmol/L (98-107) Carbon Dioxide Level 33 mmol/L (21-32) Anion Gap 6 (6-14) Blood Urea Nitrogen 50 mg/dL (8-26) Creatinine 2.5 mg/dL (0.7-1.3) Estimated GFR (Cockcroft-Gault) 25.8 Glucose Level 290 mg/dL (70-99) Calcium Level 8.4 mg/dL (8.5-10.1) Phosphorus Level 5.2 mg/dL (2.6-4.7) Magnesium Level 2.2 mg/dL (1.8-2.4) Albumin 1.6 g/dL (3.4-5.0) O2 Saturation 88 % (92-99) Arterial Blood pH 7.34 (7.35-7.45) Arterial Blood pCO2 at Patient Temp 57 mmHg (35-46) Arterial Blood pO2 at Patient Temp 60 mmHg (65-108) Arterial Blood HCO3 30 mmol/L (21-28) Arterial Blood Base Excess 3 mmol/L (-3-3) FiO2 70% vent Laboratory Tests Test 02/25/20 12:35 02/25/20 13:40 02/25/20 18:09 02/26/20 00:12 Glucose (Fingerstick) 282 mg/dL (70-99) 244 mg/dL (70-99) 314 mg/dL (70-99) Urine Collection Type Unknown Urine Color Yellow Urine Clarity Clear Urine pH 6.0 (<5.0-8.0) Urine Specific [place] 1.015 (1.000-1.030) Urine Protein Negative mg/dL (NEG-TRACE) Urine Glucose (UA) 100 mg/dL (NEG) Urine Ketones (Stick) Negative mg/dL (NEG) Urine Blood Small (NEG) Urine Nitrite Negative (NEG) Urine Bilirubin Negative (NEG) Urine Urobilinogen Dipstick 1.0 mg/dL (0.2 mg/dL) Urine Leukocyte Esterase Small (NEG) Urine RBC >40 /HPF (0-2) Urine WBC 1-4 /HPF (0-4) Urine Amorphous Sediment Present /HPF Urine Bacteria 0 /HPF (0-FEW) Test 02/26/20 05:50 02/26/20 05:55 02/26/20 07:40 White Blood Count 5.1 x10^3/uL (4.0-11.0) Red Blood Count 3.41 x10^6/uL (4.30-5.70) Hemoglobin 8.5 g/dL (13.0-17.5) Hematocrit 27.4 % (39.0-53.0) Mean Corpuscular Volume 80 fL (79-100) Mean Corpuscular Hemoglobin 25 pg (25-35) Mean Corpuscular Hemoglobin Concent 31 g/dL (31-37) Red Cell Distribution Width 17.7 % (11.5-14.5) Platelet Count 276 x10^3/uL (140-400) Neutrophils (%) (Auto) 75 % (31-73) Lymphocytes (%) (Auto) 11 % (24-48) Monocytes (%) (Auto) 9 % (0-9) Eosinophils (%) (Auto) 4 % (0-3) Basophils (%) (Auto) 1 % (0-3) Neutrophils # (Auto) 3.8 x10^3/uL (1.8-7.7) Lymphocytes # (Auto) 0.5 x10^3/uL (1.0-4.8) Monocytes # (Auto) 0.4 x10^3/uL (0.0-1.1) Eosinophils # (Auto) 0.2 x10^3/uL (0.0-0.7) Basophils # (Auto) 0.1 x10^3/uL (0.0-0.2) Sodium Level 142 mmol/L (136-145) Potassium Level 4.7 mmol/L (3.5-5.1) Chloride Level 103 mmol/L (98-107) Carbon Dioxide Level 33 mmol/L (21-32) Anion Gap 6 (6-14) Blood Urea Nitrogen 50 mg/dL (8-26) Creatinine 2.5 mg/dL (0.7-1.3) Estimated GFR (Cockcroft-Gault) 25.8 Glucose Level 290 mg/dL (70-99) Calcium Level 8.4 mg/dL (8.5-10.1) Phosphorus Level 5.2 mg/dL (2.6-4.7) Magnesium Level 2.2 mg/dL (1.8-2.4) Albumin 1.6 g/dL (3.4-5.0) Glucose (Fingerstick) 277 mg/dL (70-99) O2 Saturation 88 % (92-99) Arterial Blood pH 7.34 (7.35-7.45) Arterial Blood pCO2 at Patient Temp 57 mmHg (35-46) Arterial Blood pO2 at Patient Temp 60 mmHg (65-108) Arterial Blood HCO3 30 mmol/L (21-28) Arterial Blood Base Excess 3 mmol/L (-3-3) FiO2 70% vent Microbiology 02/21/20 Blood Culture - Preliminary, Resulted NO GROWTH AFTER 4 DAYS Medications Current Medications Sodium Chloride (Normal Saline Flush) 3 ml QSHIFT PRN IV AFTER MEDS AND BLOOD DRAWS; Start 02/21/20 at 06:45 Sodium Chloride 1,000 ml @ 100 mls/hr Q10H IV Last administered on 02/24/20at 04:45; Start 02/21/20 at 06:45; Stop 02/24/20 at 08:11; Status DC Fentanyl Citrate 30 ml @ 0 mls/hr CONT PRN IV SEE PROTOCOL Last administered on 02/21/20at 07:26; Start 02/21/20 at 06:45; Stop 02/21/20 at 10:59; Status DC Propofol 100 ml @ 0 mls/hr CONT PRN IV PER PROTOCOL Last administered on 02/26/20at 10:47; Start 02/21/20 at 06:45 Fentanyl Citrate (Fentanyl 2ml Vial) 25 mcg PRN Q1HR PRN IV SEE COMMENTS; Start 02/21/20 at 06:45 Fentanyl Citrate (Fentanyl 2ml Vial) 50 mcg PRN Q1HR PRN IV SEE COMMENTS; St art 02/21/20 at 06:45 Famotidine (Pepcid Vial) 20 mg BID IVP Last administered on 02/21/20at 10:23; Start 02/21/20 at 09:00; Stop 02/21/20 at 12:53; Status DC Morphine Sulfate (Morphine Sulfate) 2 mg PRN Q1HR PRN IV SEE COMMENTS.; Start 02/21/20 at 06:45; Stop 02/23/20 at 06:20; Status DC Morphine Sulfate (Morphine Sulfate) 4 mg PRN Q1HR PRN IV SEE COMMENTS.; Start 02/21/20 at 06:45; Stop 02/23/20 at 06:20; Status DC Midazolam HCl 100 ml @ 0 mls/hr CONT PRN IV SEE PROTOCOL Last administered on 02/23/20at 21:56; Start 02/21/20 at 06:45; Stop 02/24/20 at 11:18; Status DC Fentanyl Citrate 55 ml @ 0 mls/hr CONT PRN IV PAIN/SEDATION Last administered on 02/25/20 05:51; Start 02/21/20 at 11:00 Ondansetron HCl (Zofran) 4 mg PRN Q6HRS PRN IVP NAUSEA/VOMITING; Start 02/21/20 at 12:15 Famotidine (Pepcid Vial) 20 mg BID IVP ; Start 02/21/20 at 13:00; Stop 02/21/20 at 12:53; Status DC Info (Icu Electrolyte Protocol) 1 ea DAILY MC Last administered on 02/23/20at 09:00; Start 02/22/20 at 09:00 Sodium Chloride (Normal Saline Flush) 3 ml QSHIFT PRN IV AFTER MEDS AND BLOOD DRAWS; Start 02/21/20 at 12:15; Status Cancel Bisacodyl (Dulcolax Supp) 10 mg PRN DAILY PRN GA CONSTIPATION; Start 02/21/20 at 12:15 Piperacillin Sod/ Tazobactam Sod (Zosyn Per Pharmacy) 1 each PRN DAILY PRN MC SEE COMMENTS; Start 02/21/20 at 12:15 Meropenem 500 mg/ Sodium Chloride 50 ml @ 100 mls/hr Q8HRS IV Last administered on 02/22/20at 05:38; Start 02/21/20 at 14:00; Stop 02/22/20 at 08:19; Status DC Pantoprazole Sodium (PROTONIX VIAL for IV PUSH) 40 mg DAILYAC IVP ; Start 02/22/20 at 16:30; Status Cancel Furosemide (Lasix) 40 mg 1X ONCE IVP Last administered on 02/21/20at 16:24; Start 02/21/20 at 15:00; Stop 02/21/20 at 15:01; Status DC Piperacillin Sod/ Tazobactam Sod 3.375 gm/Sodium Chloride 50 ml @ 100 mls/hr Q6HRS IV Last administered on 02/26/20 05:37; Start 02/21/20 at 18:00 Simvastatin (Zocor) 40 mg QHS PO Last administered on 02/25/20 20:31; Start 02/21/20 at 21:00 Propranolol HCl (Inderal) 40 mg BID PO ; Start 02/21/20 at 21:00; Status Cancel Apixaban (Eliquis) 5 mg BID PO Last administered on 02/22/20at 08:46; Start 02/21/20 at 21:30; Stop 02/22/20 at 09:28; Status DC Pantoprazole Sodium (Protonix) 40 mg DAILYAC PO ; Start 02/22/20 at 07:30; Stop 02/21/20 at 22:27; Status DC Propranolol HCl (Inderal) 40 mg BID PO Last administered on 02/26/20 07:46; Start 02/21/20 at 21:30 Sucralfate (Carafate) 1 gm QID PO ; Start 02/21/20 at 21:30; Stop 02/21/20 at 22:23; Status DC Vitamin D (Vitamin D3) 1,000 unit DAILY PO Last administered on 02/26/20 07:46; Start 02/22/20 at 09:00 Fenofibrate (Lofibra) 134 mg DAILY PO Last administered on 02/26/20 07:46; Start 02/22/20 at 09:00 Multivitamins (Thera M Plus) 1 tab DAILY PO ; Start 02/22/20 at 09:00; Stop 02/22/20 at 08:44; Status DC Pantoprazole Sodium (PROTONIX VIAL for IV PUSH) 40 mg DAILY IVP Last administered on 02/26/20 07:45; Start 02/22/20 at 09:00 Info (FLU VACCINE SCREEN per RX) 1 each 1X ONCE MC ; Start 02/22/20 at 00:00; Stop 02/22/20 at 00:01; Status UNV Influenza Virus Vaccine Quadrival (Fluzone Quad 9723-6598 Syringe) 0.5 ml ONCE ONCE VAX IM ; Start 02/22/20 at 09:00; Stop 02/22/20 at 09:01; Status DC Info (Anti-Coagulation Monitoring By Pharmacy) 1 each PRN DAILY PRN MC SEE COMMENTS; Start 02/22/20 at 08:15 Linezolid/Dextrose 300 ml @ 300 mls/hr Q12HR IV Last administered on 02/26/20 07:47; Start 02/22/20 at 09:00 Multivitamins/ Minerals Therapeutic (Centrum Multivit-Mineral Liq) 5 ml DAILY PEG Last administered on 02/26/20 07:46; Start 02/22/20 at 09:00 Furosemide (Lasix) 40 mg DAILY IVP Last administered on 02/26/20at 07:46; Start 02/22/20 at 10:00 Micafungin Sodium 100 mg/Dextrose 100 ml @ 100 mls/hr Q24H IV Last administered on 02/25/20at 12:34; Start 02/22/20 at 12:00 Linezolid/Dextrose 300 ml @ 300 mls/hr Q12HR IV ; Start 02/22/20 at 11:30; Stop 02/22/20 at 11:20; Status DC Potassium Chloride/Water 100 ml @ 100 mls/hr Q1H IV Last administered on 02/23/20at 09:18; Start 02/23/20 at 08:00; Stop 02/23/20 at 09:59; Status DC Magnesium Sulfate 50 ml @ 25 mls/hr 1X ONCE IV Last administered on 02/23/20at 08:17; Start 02/23/20 at 08:00; Stop 02/23/20 at 09:59; Status DC Insulin Human Lispro (HumaLOG) 0-5 UNITS Q6HRS SQ Last administered on 02/26/20at 05:56; Start 02/23/20 at 12:00 Dextrose (Dextrose 50%-Water Syringe) 12.5 gm PRN Q15MIN PRN IV SEE COMMENTS; Start 02/23/20 at 08:00 Magnesium Sulfate 50 ml @ 25 mls/hr PRN DAILY PRN IV for Mag < 1.7 on am labs; Start 02/24/20 at 08:15 Darbepoetin Jake (ARANESP for DIALYSIS PTS) 60 mcg WEEKLYHS SQ Last administered on 02/26/20at 07:45; Start 02/25/20 at 21:00 Iron Sucrose 200 mg/Sodium Chloride 110 ml @ 55 mls/hr 3X/WEEK IV ; Start 02/27/20 at 09:00; Stop 03/07/20 at 10:59 Lidocaine HCl (Buffered Lidocaine 1%) 3 ml STK-MED ONCE .ROUTE ; Start 02/25/20 at 15:37; Stop 02/25/20 at 15:38; Status DC Lidocaine HCl (Buffered Lidocaine 1%) 6 ml 1X ONCE INJ Last administered on 02/25/20at 16:50; Start 02/25/20 at 16:45; Stop 02/25/20 at 16:47; Status DC Sodium Chloride 1,000 ml @ 1,000 mls/hr Q1H PRN IV hypotension; Start 02/25/20 at 20:00; Stop 02/26/20 at 01:59; Status DC Albumin Human 200 ml @ 200 mls/hr 1X PRN PRN IV Hypotension; Start 02/25/20 at 20:00; Stop 02/26/20 at 01:59; Status DC Sodium Chloride (Normal Saline Flush) 10 ml 1X PRN PRN IV AP catheter pack; Start 02/25/20 at 20:00; Stop 02/26/20 at 19:59 Sodium Chloride (Normal Saline Flush) 10 ml 1X PRN PRN IV TOOL HARDENER catheter pack; Start 02/25/20 at 20:00; Stop 02/26/20 at 19:59 Sodium Chloride 1,000 ml @ 400 mls/hr Q2H30M PRN IV PATENCY; Start 02/25/20 at 20:00; Stop 02/26/20 at 07:59; Status DC Info (PHARMACY MONITORING -- do not chart) 1 each PRN DAILY PRN MC SEE COMMENTS; Start 02/25/20 at 20:00; Stop 02/25/20 at 20:10; Status DC Info (PHARMACY MONITORING -- do not chart) 1 each PRN DAILY PRN MC SEE COMMENTS; Start 02/25/20 at 20:00; Stop 02/26/20 at 10:07; Status DC Sodium Chloride 1,000 ml @ 1,000 mls/hr Q1H PRN IV hypotension; Start 02/26/20 at 10:00; Stop 02/26/20 at 15:59 Albumin Human 200 ml @ 200 mls/hr 1X PRN PRN IV Hypotension; Start 02/26/20 at 10:00; Stop 02/26/20 at 15:59 Sodium Chloride 1,000 ml @ 400 mls/hr Q2H30M PRN IV PATENCY; Start 02/26/20 at 10:00; Stop 02/26/20 at 21:59 Info (PHARMACY MONITORING -- do not chart) 1 each PRN DAILY PRN MC SEE COMMENTS; Start 02/26/20 at 10:00; Stop 02/26/20 at 10:11; Status DC Info (PHARMACY MONITORING -- do not chart) 1 each PRN DAILY PRN MC SEE COMMENTS; Start 1/3/21 at 10:00 Active Scripts Active Carafate (Sucralfate) 1 Gm Tablet 1 Tab PO QID 30 Days Protonix (Pantoprazole Sodium) 40 Mg Tablet.dr 40 Mg PO DAILYAC 30 Days Miralax (Polyethylene Glycol 3350) 17 Gm Powd.pack 1 Packet PO DAILY 2 Days dissolve in water Reported D3-50 (Cholecalciferol (Vitamin D3)) 50,000 Unit Capsule 1,000 Unit PO DAILY Propranolol Hcl 40 Mg Tablet 40 Mg PO BID Furosemide 40 Mg Tablet 40 Mg PO BID Eliquis (Apixaban) 5 Mg Tablet 5 Mg PO BID Humalog (Insulin Lispro) 100 Unit/1 Ml Cartridge 100 Unit SQ TIDACHC Lantus (Insulin Glargine,Hum.rec.anlog) 100 Unit/1 Ml Vial 35 Unit SQ HS Hydrocodone-Apap 7.5-325 (Hydrocodone Bit/Acetaminophen) 1 Tab Tablet 1 Tab PO PRN Q6HRS PRN Glimepiride 1 Mg Tablet 1 Mg PO DAILY Simvastatin 40 Mg Tablet 1 Tab PO QHS Fenofibrate 160 Mg Tablet 145 Mg PO HS Propranolol Hcl 40 Mg Tablet 1 Tab PO BID One-Daily Multi-Vitamin (Multivitamin) 1 Each Tablet 1 Tab PO DAILY 30 Days Vitals/I & O Vital Sign - Last 24 Hours 02/25/20 02/25/20 02/25/20 02/25/20 11:00 12:00 12:00 12:00 Temp 97.0 97.0 Pulse 52 56 Resp 20 20 B/P (MAP) 104/55 (71) 106/53 (70) Pulse Ox 93 93 93 O2 Delivery Ventilator Mechanical Ventilator Ventilator Ventilator 02/25/20 02/25/20 02/25/20 02/25/20 13:00 14:00 15:00 15:10 Pulse 54 54 54 Resp 20 20 20 B/P (MAP) 104/55 (71) 111/57 (75) 101/54 (70) Pulse Ox 94 89 90 90 O2 Delivery Ventilator Ventilator Ventilator Ventilator 02/25/20 02/25/20 02/25/20 02/25/20 16:00 16:00 17:00 18:00 Temp 97.2 97.2 Pulse 59 56 53 Resp 20 20 20 B/P (MAP) 131/69 (89) 105/61 (76) 114/60 (78) Pulse Ox 97 93 91 O2 Delivery Mechanical Ventilator Ventilator Ventilator Ventilator 02/25/20 02/25/20 02/25/20 02/25/20 19:00 20:00 20:00 20:32 Temp 94.4 94.4 Pulse 54 54 Resp 20 20 B/P (MAP) 114/62 (79) 111/59 (76) Pulse Ox 92 92 92 O2 Delivery Ventilator Ventilator Mechanical Ventilator Ventilator 02/25/20 02/25/20 02/25/20 02/25/20 21:00 21:00 22:00 23:00 Temp 97.1 97.1 Pulse 56 56 54 59 Resp 20 20 20 B/P (MAP) 102/56 102/56 (71) 106/57 (73) 106/58 (74) Pulse Ox 92 91 90 O2 Delivery Ventilator Ventilator Ventilator 02/25/20 02/26/20 02/26/20 02/26/20 23:07 00:00 00:00 01:00 Pulse 68 74 Resp 20 20 B/P (MAP) 104/55 (71) 127/63 (84) Pulse Ox 91 94 94 O2 Delivery Ventilator Mechanical Ventilator Ventilator Ventilator 02/26/20 02/26/20 02/26/20 02/26/20 02:00 03:00 03:54 04:00 Temp 98.1 98.1 Pulse 69 69 77 Resp 20 20 20 B/P (MAP) 116/59 (78) 108/58 (75) 120/59 (79) Pulse Ox 94 93 93 91 O2 Delivery Ventilator Ventilator Ventilator Ventilator 02/26/20 02/26/20 02/26/20 02/26/20 04:00 05:00 06:00 07:00 Pulse 81 77 94 Resp 20 20 20 B/P (MAP) 134/67 (89) 137/66 (89) 111/60 (77) Pulse Ox 92 92 91 O2 Delivery Mechanical Ventilator Ventilator Ventilator Ventilator 02/26/20 02/26/20 02/26/20 02/26/20 07:27 07:46 08:00 08:00 Temp 98.3 98.3 Pulse 96 90 Resp 20 B/P (MAP) 111/60 121/53 (75) Pulse Ox 92 91 O2 Delivery Ventilator Ventilator Mechanical Ventilator 02/26/20 02/26/20 09:00 10:00 Pulse 89 94 Resp 20 22 B/P (MAP) 119/56 (77) 123/57 (79) Pulse Ox 90 90 O2 Delivery Ventilator Ventilator Intake and Output 02/25/20 02/25/20 02/26/20 15:00 23:00 07:00 Intake Total 750 ml 1634 ml 300 ml Output Total 805 ml 1030 ml 475 ml Balance -55 ml 604 ml -175 ml Justicifation of Admission Dx: Justifications for Admission: Justification of Admission Dx: Yes RHONDA CORREIA MD Feb 26, 2020 10:50
--- NOTE | 2020-02-26 11:23 | PDOC ---
PULMONARY PROGRESS NOTES DATE: 02/26/20 TIME: 11:20 Subjective On vent support 70%, PEEP 5 Patient experienced hypoxia overnight, FiO2 increased to 70% Nursing concern for potential seizure activity no overnight concerns from nursing Vitals Vital Signs Date Time Temp Pulse Resp B/P (MAP) Pulse Ox O2 Delivery O2 Flow Rate FiO2 02/26/20 11:00 93 22 126/58 (80) 91 Ventilator 02/26/20 08:00 98.3 98.3 Comments intubated/sedated Lungs: Clear Cardiovascular: S1, S2 Abdomen: Other Extremities: Other (BLE edema ) Skin: Warm, Dry Labs Laboratory Tests Test 02/24/20 13:25 02/24/20 23:50 02/25/20 05:45 02/25/20 05:48 Glucose (Fingerstick) 206 mg/dL (70-99) 247 mg/dL (70-99) 233 mg/dL (70-99) White Blood Count 5.6 x10^3/uL (4.0-11.0) Red Blood Count 3.23 x10^6/uL (4.30-5.70) Hemoglobin 7.9 g/dL (13.0-17.5) Hematocrit 25.9 % (39.0-53.0) Mean Corpuscular Volume 80 fL (79-100) Mean Corpuscular Hemoglobin 25 pg (25-35) Mean Corpuscular Hemoglobin Concent 31 g/dL (31-37) Red Cell Distribution Width 17.9 % (11.5-14.5) Platelet Count 246 x10^3/uL (140-400) Neutrophils (%) (Auto) 75 % (31-73) Lymphocytes (%) (Auto) 10 % (24-48) Monocytes (%) (Auto) 9 % (0-9) Eosinophils (%) (Auto) 4 % (0-3) Basophils (%) (Auto) 1 % (0-3) Neutrophils # (Auto) 4.2 x10^3/uL (1.8-7.7) Lymphocytes # (Auto) 0.6 x10^3/uL (1.0-4.8) Monocytes # (Auto) 0.5 x10^3/uL (0.0-1.1) Eosinophils # (Auto) 0.2 x10^3/uL (0.0-0.7) Basophils # (Auto) 0.1 x10^3/uL (0.0-0.2) Sodium Level 134 mmol/L (136-145) Potassium Level 3.6 mmol/L (3.5-5.1) Chloride Level 95 mmol/L (98-107) Carbon Dioxide Level 26 mmol/L (21-32) Anion Gap 13 (6-14) Blood Urea Nitrogen 109 mg/dL (8-26) Creatinine 4.9 mg/dL (0.7-1.3) Estimated GFR (Cockcroft-Gault) 11.9 Glucose Level 148 mg/dL (70-99) Calcium Level 9.1 mg/dL (8.5-10.1) Phosphorus Level 6.0 mg/dL (2.6-4.7) Magnesium Level 2.9 mg/dL (1.8-2.4) Albumin 1.8 g/dL (3.4-5.0) Hepatitis B Surface Antigen Nonreactive (Nonreactive) Test 02/25/20 08:40 02/25/20 12:35 02/25/20 13:40 02/25/20 18:09 O2 Saturation 90 % (92-99) Arterial Blood pH 7.41 (7.35-7.45) Arterial Blood pCO2 at Patient Temp 49 mmHg (35-46) Arterial Blood pO2 at Patient Temp 64 mmHg (65-108) Arterial Blood HCO3 30 mmol/L (21-28) Arterial Blood Base Excess 5 mmol/L (-3-3) FiO2 60% vent Glucose (Fingerstick) 282 mg/dL (70-99) 244 mg/dL (70-99) Urine Collection Type Unknown Urine Color Yellow Urine Clarity Clear Urine pH 6.0 (<5.0-8.0) Urine Specific [place] 1.015 (1.000-1.030) Urine Protein Negative mg/dL (NEG-TRACE) Urine Glucose (UA) 100 mg/dL (NEG) Urine Ketones (Stick) Negative mg/dL (NEG) Urine Blood Small (NEG) Urine Nitrite Negative (NEG) Urine Bilirubin Negative (NEG) Urine Urobilinogen Dipstick 1.0 mg/dL (0.2 mg/dL) Urine Leukocyte Esterase Small (NEG) Urine RBC >40 /HPF (0-2) Urine WBC 1-4 /HPF (0-4) Urine Amorphous Sediment Present /HPF Urine Bacteria 0 /HPF (0-FEW) Test 02/26/20 00:12 02/26/20 05:50 02/26/20 05:55 02/26/20 07:40 Glucose (Fingerstick) 314 mg/dL (70-99) 277 mg/dL (70-99) White Blood Count 5.1 x10^3/uL (4.0-11.0) Red Blood Count 3.41 x10^6/uL (4.30-5.70) Hemoglobin 8.5 g/dL (13.0-17.5) Hematocrit 27.4 % (39.0-53.0) Mean Corpuscular Volume 80 fL (79-100) Mean Corpuscular Hemoglobin 25 pg (25-35) Mean Corpuscular Hemoglobin Concent 31 g/dL (31-37) Red Cell Distribution Width 17.7 % (11.5-14.5) Platelet Count 276 x10^3/uL (140-400) Neutrophils (%) (Auto) 75 % (31-73) Lymphocytes (%) (Auto) 11 % (24-48) Monocytes (%) (Auto) 9 % (0-9) Eosinophils (%) (Auto) 4 % (0-3) Basophils (%) (Auto) 1 % (0-3) Neutrophils # (Auto) 3.8 x10^3/uL (1.8-7.7) Lymphocytes # (Auto) 0.5 x10^3/uL (1.0-4.8) Monocytes # (Auto) 0.4 x10^3/uL (0.0-1.1) Eosinophils # (Auto) 0.2 x10^3/uL (0.0-0.7) Basophils # (Auto) 0.1 x10^3/uL (0.0-0.2) Sodium Level 142 mmol/L (136-145) Potassium Level 4.7 mmol/L (3.5-5.1) Chloride Level 103 mmol/L (98-107) Carbon Dioxide Level 33 mmol/L (21-32) Anion Gap 6 (6-14) Blood Urea Nitrogen 50 mg/dL (8-26) Creatinine 2.5 mg/dL (0.7-1.3) Estimated GFR (Cockcroft-Gault) 25.8 Glucose Level 290 mg/dL (70-99) Calcium Level 8.4 mg/dL (8.5-10.1) Phosphorus Level 5.2 mg/dL (2.6-4.7) Magnesium Level 2.2 mg/dL (1.8-2.4) Albumin 1.6 g/dL (3.4-5.0) O2 Saturation 88 % (92-99) Arterial Blood pH 7.34 (7.35-7.45) Arterial Blood pCO2 at Patient Temp 57 mmHg (35-46) Arterial Blood pO2 at Patient Temp 60 mmHg (65-108) Arterial Blood HCO3 30 mmol/L (21-28) Arterial Blood Base Excess 3 mmol/L (-3-3) FiO2 70% vent Laboratory Tests Test 02/25/20 12:35 02/25/20 13:40 02/25/20 18:09 02/26/20 00:12 Glucose (Fingerstick) 282 mg/dL (70-99) 244 mg/dL (70-99) 314 mg/dL (70-99) Urine Collection Type Unknown Urine Color Yellow Urine Clarity Clear Urine pH 6.0 (<5.0-8.0) Urine Specific [place] 1.015 (1.000-1.030) Urine Protein Negative mg/dL (NEG-TRACE) Urine Glucose (UA) 100 mg/dL (NEG) Urine Ketones (Stick) Negative mg/dL (NEG) Urine Blood Small (NEG) Urine Nitrite Negative (NEG) Urine Bilirubin Negative (NEG) Urine Urobilinogen Dipstick 1.0 mg/dL (0.2 mg/dL) Urine Leukocyte Esterase Small (NEG) Urine RBC >40 /HPF (0-2) Urine WBC 1-4 /HPF (0-4) Urine Amorphous Sediment Present /HPF Urine Bacteria 0 /HPF (0-FEW) Test 02/26/20 05:50 02/26/20 05:55 02/26/20 07:40 White Blood Count 5.1 x10^3/uL (4.0-11.0) Red Blood Count 3.41 x10^6/uL (4.30-5.70) Hemoglobin 8.5 g/dL (13.0-17.5) Hematocrit 27.4 % (39.0-53.0) Mean Corpuscular Volume 80 fL (79-100) Mean Corpuscular Hemoglobin 25 pg (25-35) Mean Corpuscular Hemoglobin Concent 31 g/dL (31-37) Red Cell Distribution Width 17.7 % (11.5-14.5) Platelet Count 276 x10^3/uL (140-400) Neutrophils (%) (Auto) 75 % (31-73) Lymphocytes (%) (Auto) 11 % (24-48) Monocytes (%) (Auto) 9 % (0-9) Eosinophils (%) (Auto) 4 % (0-3) Basophils (%) (Auto) 1 % (0-3) Neutrophils # (Auto) 3.8 x10^3/uL (1.8-7.7) Lymphocytes # (Auto) 0.5 x10^3/uL (1.0-4.8) Monocytes # (Auto) 0.4 x10^3/uL (0.0-1.1) Eosinophils # (Auto) 0.2 x10^3/uL (0.0-0.7) Basophils # (Auto) 0.1 x10^3/uL (0.0-0.2) Sodium Level 142 mmol/L (136-145) Potassium Level 4.7 mmol/L (3.5-5.1) Chloride Level 103 mmol/L (98-107) Carbon Dioxide Level 33 mmol/L (21-32) Anion Gap 6 (6-14) Blood Urea Nitrogen 50 mg/dL (8-26) Creatinine 2.5 mg/dL (0.7-1.3) Estimated GFR (Cockcroft-Gault) 25.8 Glucose Level 290 mg/dL (70-99) Calcium Level 8.4 mg/dL (8.5-10.1) Phosphorus Level 5.2 mg/dL (2.6-4.7) Magnesium Level 2.2 mg/dL (1.8-2.4) Albumin 1.6 g/dL (3.4-5.0) Glucose (Fingerstick) 277 mg/dL (70-99) O2 Saturation 88 % (92-99) Arterial Blood pH 7.34 (7.35-7.45) Arterial Blood pCO2 at Patient Temp 57 mmHg (35-46) Arterial Blood pO2 at Patient Temp 60 mmHg (65-108) Arterial Blood HCO3 30 mmol/L (21-28) Arterial Blood Base Excess 3 mmol/L (-3-3) FiO2 70% vent Medications Active Scripts Medications Dose Route/Sig Max Daily Dose Days Date Category Dose Instructions D3-50 (Cholecalciferol (Vitamin D3)) 50,000 Unit Capsule 1,000 Unit PO DAILY 02/21/20 Reported Propranolol Hcl 40 Mg Tablet 40 Mg PO BID 02/21/20 Reported Furosemide 40 Mg Tablet 40 Mg PO BID 02/21/20 Reported Eliquis (Apixaban) 5 Mg Tablet 5 Mg PO BID 02/21/20 Reported Humalog (Insulin Lispro) 100 Unit/1 Ml Cartridge 100 Unit SQ TIDACHC 02/21/20 Reported Lantus (Insulin Glargine,Hum.rec.anlog) 100 Unit/1 Ml Vial 35 Unit SQ HS 02/21/20 Reported Hydrocodone-Apap 7.5-325 (Hydrocodone Bit/Acetaminophen) 1 Tab Tablet 1 Tab PO PRN Q6HRS PRN 02/21/20 Reported Glimepiride 1 Mg Tablet 1 Mg PO DAILY 02/21/20 Reported Carafate (Sucralfate) 1 Gm Tablet 1 Tab PO QID 30 11/11/19 Rx Protonix (Pantoprazole Sodium) 40 Mg Tablet.dr 40 Mg PO DAILYAC 30 11/11/19 Rx Miralax (Polyethylene Glycol 3350) 17 Gm Powd.pack 1 Packet PO DAILY 2 11/11/19 Rx dissolve in water Simvastatin 40 Mg Tablet 1 Tab PO QHS 11/06/19 Reported Fenofibrate 160 Mg Tablet 145 Mg PO HS 11/06/19 Reported Propranolol Hcl 40 Mg Tablet 1 Tab PO BID 11/06/19 Reported One-Daily Multi-Vitamin (Multivitamin) 1 Each Tablet 1 Tab PO DAILY 30 11/06/19 Reported Comments CXR 02/24/20 IMPRESSION: 1. No stable change in diffuse mixed interstitial and alveolar infiltrate and small to moderate pleural effusions. 2. Support lines and tubes, described above. Impression . IMPRESSION: 1. Acute on chronic hypoxemic hypercapnic respiratory failure, required intubation 2. Paroxysmal atrial fibrillation. 3. History of deep venous thrombosis, PE, status post IVC filter placement. 4. History of anemia with history of recent gastrointestinal bleed. 5. Hypertension. 6. Hyperlipidemia. 7. Acute on chronic kidney disease. 8. Acute exacerbation of chronic obstructive pulmonary disease. 9. Acute on chronic metabolic toxic, possible toxic encephalopathy. Plan . Continue current vent support currently on A/C 20/500/5/70% Follow CXR and ABG, increased respiratory rate to 22 today, no further changes Follow neurology recommendations in regards to new onset seizures, as needed Ativan Follow nephrology recommendations--status post hemodialysis catheter placement on 02/24, renal function improved today, hold hemodialysis Follow cardiology recommendations COVID-19 negative Continue empiric antibiotic per ID, Follow cultures NGTD on : Anastasia/Zyvox/zosyn Follow GI recs continue TF for nutritional support DVT/GI prophylaxis Critical care time 0800--0830 AM Discussed with RN and RT CHRISTIE ALMARAZ MD Feb 26, 2020 11:23
--- NOTE | 2020-02-26 11:24 | PDOC ---
Infectious Disease Note Subjective: Subjective Patient remains intubated/sedated Vital Signs: Vital Signs Vital Signs Date Time Temp Pulse Resp B/P (MAP) Pulse Ox O2 Delivery O2 Flow Rate FiO2 02/26/20 11:00 93 22 126/58 (80) 91 Ventilator 02/26/20 08:00 98.3 98.3 Physical Exam: PHYSICAL EXAM GENERAL: Intubated, sedated HEENT: Normocephalic, atraumatic, anicteric. OGT/ETT present LUNGS: Clear anteriorly. HEART: S1, S2. ABDOMEN: Obese. Bowel sounds present, nondistended. GENITOURINARY: Scrotal swelling. Yeast in groin Mardid in place. EXTREMITIES: Bilateral venous stasis changes present. Wounds present over both lower extremities, hyperkeratotic skin, no cyanosis, no clubbing. DERMATOLOGIC: Warm, dry. No generalized rash except for above. Lines right internal jugular vein in place. Temporary HDC present Medications: Inpatient Meds: Current Medications Medications (Trade) Dose Ordered Sig/Dulce Start Time Stop Time Status Last Admin Dose Admin Albumin Human 200 ml @ 200 mls/hr 1X PRN PRN 02/26/20 10:00 02/26/20 15:59 Apixaban (Eliquis) 5 mg BID 02/21/20 21:30 02/22/20 09:28 DC 02/22/20 08:46 5 MG Bisacodyl (Dulcolax Supp) 10 mg PRN DAILY PRN 02/21/20 12:15 Darbepoetin Jake (ARANESP for DIALYSIS PTS) 60 mcg WEEKLYHS 02/25/20 21:00 02/26/20 07:45 60 MCG Dextrose (Dextrose 50%-Water Syringe) 12.5 gm PRN Q15MIN PRN 02/23/20 08:00 Famotidine (Pepcid Vial) 20 mg BID 02/21/20 13:00 02/21/20 12:53 DC Fenofibrate (Lofibra) 134 mg DAILY 02/22/20 09:00 02/26/20 07:46 134 MG Fentanyl Citrate 55 ml @ 0 mls/hr CONT PRN 02/21/20 11:00 02/25/20 05:51 0.75 MLS/HR Fentanyl Citrate (Fentanyl 2ml Vial) 50 mcg PRN Q1HR PRN 02/21/20 06:45 Furosemide (Lasix) 40 mg DAILY 02/22/20 10:00 02/26/20 07:46 40 MG Influenza Virus Vaccine Quadrival (Fluzone Quad Syringe) 0.5 ml ONCE ONCE 02/22/20 09:00 02/22/20 09:01 DC Info (Anti-Coagulation Monitoring By Pharmacy) 1 each PRN DAILY PRN 02/22/20 08:15 Info (FLU VACCINE SCREEN per RX) 1 each 1X ONCE 02/22/20 00:00 02/22/20 00:01 UNV Info (Icu Electrolyte Protocol) 1 ea DAILY 02/22/20 09:00 02/23/20 09:00 1 EA Info (PHARMACY MONITORING -- do not chart) 1 each PRN DAILY PRN 02/26/20 10:00 Insulin Human Lispro (HumaLOG) 0-5 UNITS Q6HRS 02/23/20 12:00 02/26/20 05:56 4 UNITS Iron Sucrose 200 mg/Sodium Chloride 110 ml @ 55 mls/hr 3X/WEEK 02/27/20 09:00 03/07/20 10:59 Lidocaine HCl (Buffered Lidocaine 1%) 6 ml 1X ONCE 02/25/20 16:45 02/25/20 16:47 DC 02/25/20 16:50 4 ML Linezolid/Dextrose 300 ml @ 300 mls/hr Q12HR 02/22/20 11:30 02/22/20 11:20 DC Magnesium Sulfate 50 ml @ 25 mls/hr PRN DAILY PRN 02/24/20 08:15 Meropenem 500 mg/ Sodium Chloride 50 ml @ 100 mls/hr Q8HRS 02/21/20 14:00 02/22/20 08:19 DC 02/22/20 05:38 100 MLS/HR Micafungin Sodium 100 mg/Dextrose 100 ml @ 100 mls/hr Q24H 02/22/20 12:00 02/25/20 12:34 100 MLS/HR Midazolam HCl 100 ml @ 0 mls/hr CONT PRN 02/21/20 06:45 02/24/20 11:18 DC 02/23/20 21:56 8 MLS/HR Morphine Sulfate (Morphine Sulfate) 4 mg PRN Q1HR PRN 02/21/20 06:45 02/23/20 06:20 DC Multivitamins (Thera M Plus) 1 tab DAILY 02/22/20 09:00 02/22/20 08:44 DC Multivitamins/ Minerals Therapeutic (Centrum Multivit-Mineral Liq) 5 ml DAILY 02/22/20 09:00 02/26/20 07:46 5 ML Ondansetron HCl (Zofran) 4 mg PRN Q6HRS PRN 02/21/20 12:15 Pantoprazole Sodium (PROTONIX VIAL for IV PUSH) 40 mg DAILY 02/22/20 09:00 02/26/20 07:45 40 MG Pantoprazole Sodium (Protonix) 40 mg DAILYAC 02/22/20 07:30 02/21/20 22:27 DC Piperacillin Sod/ Tazobactam Sod (Zosyn Per Pharmacy) 1 each PRN DAILY PRN 02/21/20 12:15 Piperacillin Sod/ Tazobactam Sod 3.375 gm/Sodium Chloride 50 ml @ 100 mls/hr Q6HRS 02/21/20 18:00 02/26/20 05:37 100 MLS/HR Potassium Chloride/Water 100 ml @ 100 mls/hr Q1H 02/23/20 08:00 02/23/20 09:59 DC 02/23/20 09:18 100 MLS/HR Propofol 100 ml @ 0 mls/hr CONT PRN 02/21/20 06:45 02/26/20 10:47 14.2 MLS/HR Propranolol HCl (Inderal) 40 mg BID 02/21/20 21:30 02/26/20 07:46 40 MG Simvastatin (Zocor) 40 mg QHS 02/21/20 21:00 02/25/20 20:31 40 MG Sodium Chloride 1,000 ml @ 400 mls/hr Q2H30M PRN 02/26/20 10:00 02/26/20 21:59 Sodium Chloride (Normal Saline Flush) 10 ml 1X PRN PRN 02/25/20 20:00 02/26/20 19:59 Sucralfate (Carafate) 1 gm QID 02/21/20 21:30 02/21/20 22:23 DC Vitamin D (Vitamin D3) 1,000 unit DAILY 02/22/20 09:00 02/26/20 07:46 1,000 UNIT Labs: Lab Laboratory Tests Test 02/25/20 12:35 02/25/20 13:40 02/25/20 18:09 02/26/20 00:12 Glucose (Fingerstick) 282 mg/dL (70-99) 244 mg/dL (70-99) 314 mg/dL (70-99) Urine Collection Type Unknown Urine Color Yellow Urine Clarity Clear Urine pH 6.0 (<5.0-8.0) Urine Specific [place] 1.015 (1.000-1.030) Urine Protein Negative mg/dL (NEG-TRACE) Urine Glucose (UA) 100 mg/dL (NEG) Urine Ketones (Stick) Negative mg/dL (NEG) Urine Blood Small (NEG) Urine Nitrite Negative (NEG) Urine Bilirubin Negative (NEG) Urine Urobilinogen Dipstick 1.0 mg/dL (0.2 mg/dL) Urine Leukocyte Esterase Small (NEG) Urine RBC >40 /HPF (0-2) Urine WBC 1-4 /HPF (0-4) Urine Amorphous Sediment Present /HPF Urine Bacteria 0 /HPF (0-FEW) Test 02/26/20 05:50 02/26/20 05:55 02/26/20 07:40 White Blood Count 5.1 x10^3/uL (4.0-11.0) Red Blood Count 3.41 x10^6/uL (4.30-5.70) Hemoglobin 8.5 g/dL (13.0-17.5) Hematocrit 27.4 % (39.0-53.0) Mean Corpuscular Volume 80 fL (79-100) Mean Corpuscular Hemoglobin 25 pg (25-35) Mean Corpuscular Hemoglobin Concent 31 g/dL (31-37) Red Cell Distribution Width 17.7 % (11.5-14.5) Platelet Count 276 x10^3/uL (140-400) Neutrophils (%) (Auto) 75 % (31-73) Lymphocytes (%) (Auto) 11 % (24-48) Monocytes (%) (Auto) 9 % (0-9) Eosinophils (%) (Auto) 4 % (0-3) Basophils (%) (Auto) 1 % (0-3) Neutrophils # (Auto) 3.8 x10^3/uL (1.8-7.7) Lymphocytes # (Auto) 0.5 x10^3/uL (1.0-4.8) Monocytes # (Auto) 0.4 x10^3/uL (0.0-1.1) Eosinophils # (Auto) 0.2 x10^3/uL (0.0-0.7) Basophils # (Auto) 0.1 x10^3/uL (0.0-0.2) Sodium Level 142 mmol/L (136-145) Potassium Level 4.7 mmol/L (3.5-5.1) Chloride Level 103 mmol/L (98-107) Carbon Dioxide Level 33 mmol/L (21-32) Anion Gap 6 (6-14) Blood Urea Nitrogen 50 mg/dL (8-26) Creatinine 2.5 mg/dL (0.7-1.3) Estimated GFR (Cockcroft-Gault) 25.8 Glucose Level 290 mg/dL (70-99) Calcium Level 8.4 mg/dL (8.5-10.1) Phosphorus Level 5.2 mg/dL (2.6-4.7) Magnesium Level 2.2 mg/dL (1.8-2.4) Albumin 1.6 g/dL (3.4-5.0) Glucose (Fingerstick) 277 mg/dL (70-99) O2 Saturation 88 % (92-99) Arterial Blood pH 7.34 (7.35-7.45) Arterial Blood pCO2 at Patient Temp 57 mmHg (35-46) Arterial Blood pO2 at Patient Temp 60 mmHg (65-108) Arterial Blood HCO3 30 mmol/L (21-28) Arterial Blood Base Excess 3 mmol/L (-3-3) FiO2 70% vent Objective: Assessment: Febrile illness resolved Acute hypoxic respiratory failure status post intubation Encephalopathy likely metabolic NATASHA with underlying CKD Diabetes mellitus Chronic venous stasis with bilateral chronic nonhealing lower extremity wounds with mild superimposed cellulitis Yeast in groin Elevated ammonia , cholelithiasis with distended gb on ct abdomen. History of atrial fibrillation. History of pulmonary embolism and deep venous thrombosis, status post IVC filter. Rapid COVID negative, 02/20. 10. Chronic venous stasis dermatitis, bilateral lower extremities with mild superimposed bilateral lower extremity cellulitis. 11. Congestive heart failure. 12. longterm resident. 13. Elevated D-dimer. 14. Anemia. RECOMMENDATIONS: 1. Discontinue meropenem as the patient does not need 2-beta lactams 2. Continue Zosyn. 3. Add Zyvox and micafungin. 4. Follow up labs and cultures. 5. Continue local wound care. 6. Continue supportive care. 7. GI, Pulmonary, Neurology and Renal team consulte Plan: Plan of Care Continue Zosyn Zyvox and micafungin Follow-up cultures Continue wound care Continue supportive care Monitor labs Discussed with ARTURO FARRIS MD Feb 26, 2020 11:24
--- NOTE | 2020-02-26 12:43 | PDOC ---
DATE OF SERVICE: DOS: DATE: 02/26/20 TIME: 12:29 SUBJECTIVE ROS Patient remains sedated intubated on the ventilator. Overnight urine output has picked up significantly and creatinine is also improved. It is unclear to me what this is in response to. He did not require dialysis overnight although does have a dialysis line in place. Remains edematous OBJECTIVE Vital Signs Vital Signs Date Time Temp Pulse Resp B/P (MAP) Pulse Ox O2 Delivery O2 Flow Rate FiO2 02/26/20 11:40 90 Ventilator 02/26/20 11:00 93 22 126/58 (80) 02/26/20 08:00 98.3 98.3 I & 0 Intake and Output 02/26/20 06:59 Intake Total 2684 ml Output Total 2310 ml Balance 374 ml Intake IV Total 871 ml Tube Feeding 1613 ml Other 200 ml Output Urine Total 1860 ml Stool Total 450 ml PHYSICAL EXAM Physical Exam GEN: Sedated intubated on the vent, In no distress, obese gentleman, appears anasarcic EYES: Sclerae anicteric, Conjunctiva Normal EN: No EN Drainage, Mucous Membranes moist, orally intubated NECK: no JVD, no JVP, Supple, no Thyromegaly, thick neck CVS: S1S2, no audible murmur, No Gallop, No Rub,+2 Edema RESP: Rare basal Rales, no rhonchi, no current Acc. Muscle Use while intubated on the vent GI: BS + ve, NO Bruit, Non Tender, Non Distended, morbidly obese : no CVA tenderness, no Suprapubic Tenderness SKIN: No rashes Breast Exam deferred Mu.Sk: Unable to assess for range of motion, no muscle atrophy Heme: Unable to palpate Obvious LAD no palpable splenomegaly NEURO: Unable to assess while sedated intubated on the vent, no asterixis Psych: Unable to assess while sedated intubated on the vent DIAGNOSIS/ASSESSMENT Diagnosis CKD stage 4 -previous creatinines have been in the 2.6-3.0 range. Presumed DM/ HTNsive / NS; No UA avail yet. Urine sodium less than 20. Creat is much better today and back close to baseline. Given anasarca and respiratory failure he may need to start dialysis in the near future ? Element of NATASHA possible better renal state given low urine sodium versus intravascular volume depletion. Urine output has improved Acute respiratory failure: Remains sedated and intubated on the Vent . noted recent Cxr . ABGs from this am noted. Continue diuresis for negative fluid balance Pleural effusion- Small to moderate right and probable small left pleural effusion noted on most recent CXR, defer to PUlm to assess for thoracentesis. Continue diuresis. If respiratory status deteriorates, dialysis can be initiated Anasarca: Continue diuresis with IV Lasix and IV albumin. Unclear if some of this is due to fatty liver/Foster. Await ratio to assess for severity of proteinuria. Obesity and pulmonary hypertension may be contributing to the same. PA pressure of 50 on echocardiogram Anemia in the setting of renal failure, iron deficiency state: IV iron as well as EPO as ordered Diffuse hepatic steatosis : defered to Primary team/ GI. May be contributing some to anasarca and edema DM II- per primary Alkalosis - remains on Lasix - defer to Pulm to eval for persistent fluid overload vs other etio of pulm infiltrates. Hx DVT/PE. S/p IVC filter. It is unclear if IVC filter thrombosis may be contributing some to lower extremity edema and anasarca also. Unable to get CT venogram in the setting of renal failure Morbid obesity with obstructive sleep apnea AMS at presentation was [place] to be due to elevated ammonia level. Uremia cannot be ruled out. If mental status remains abnormal, dialysis can be considered Dw RN. Family aware of upcoming need for initiation of dialysis. Line in place COMMENT/RELEVANT DATA Meds Current Medications Medications (Trade) Dose Ordered Sig/Dulce Start Time Stop Time Status Last Admin Dose Admin Albumin Human 200 ml @ 200 mls/hr 1X PRN PRN 02/26/20 10:00 02/26/20 15:59 Apixaban (Eliquis) 5 mg BID 02/21/20 21:30 02/22/20 09:28 DC 02/22/20 08:46 5 MG Bisacodyl (Dulcolax Supp) 10 mg PRN DAILY PRN 02/21/20 12:15 Darbepoetin Jake (ARANESP for DIALYSIS PTS) 60 mcg WEEKLYHS 02/25/20 21:00 02/26/20 07:45 60 MCG Dextrose (Dextrose 50%-Water Syringe) 12.5 gm PRN Q15MIN PRN 02/23/20 08:00 Famotidine (Pepcid Vial) 20 mg BID 02/21/20 13:00 02/21/20 12:53 DC Fenofibrate (Lofibra) 134 mg DAILY 02/22/20 09:00 02/26/20 07:46 134 MG Fentanyl Citrate 55 ml @ 0 mls/hr CONT PRN 02/21/20 11:00 02/25/20 05:51 0.75 MLS/HR Fentanyl Citrate (Fentanyl 2ml Vial) 50 mcg PRN Q1HR PRN 02/21/20 06:45 Furosemide (Lasix) 40 mg DAILY 02/22/20 10:00 02/26/20 07:46 40 MG Influenza Virus Vaccine Quadrival (Fluzone Quad Syringe) 0.5 ml ONCE ONCE 02/22/20 09:00 02/22/20 09:01 DC Info (Anti-Coagulation Monitoring By Pharmacy) 1 each PRN DAILY PRN 02/22/20 08:15 Info (FLU VACCINE SCREEN per RX) 1 each 1X ONCE 02/22/20 00:00 02/22/20 00:01 UNV Info (Icu Electrolyte Protocol) 1 ea DAILY 02/22/20 09:00 02/23/20 09:00 1 EA Info (PHARMACY MONITORING -- do not chart) 1 each PRN DAILY PRN 02/26/20 10:00 Insulin Human Lispro (HumaLOG) 0-5 UNITS Q6HRS 02/23/20 12:00 02/26/20 05:56 4 UNITS Iron Sucrose 200 mg/Sodium Chloride 110 ml @ 55 mls/hr 3X/WEEK 02/27/20 09:00 03/07/20 10:59 Lidocaine HCl (Buffered Lidocaine 1%) 6 ml 1X ONCE 02/25/20 16:45 02/25/20 16:47 DC 02/25/20 16:50 4 ML Linezolid/Dextrose 300 ml @ 300 mls/hr Q12HR 02/22/20 11:30 02/22/20 11:20 DC Magnesium Sulfate 50 ml @ 25 mls/hr PRN DAILY PRN 02/24/20 08:15 Meropenem 500 mg/ Sodium Chloride 50 ml @ 100 mls/hr Q8HRS 02/21/20 14:00 02/22/20 08:19 DC 02/22/20 05:38 100 MLS/HR Micafungin Sodium 100 mg/Dextrose 100 ml @ 100 mls/hr Q24H 02/22/20 12:00 02/25/20 12:34 100 MLS/HR Midazolam HCl 100 ml @ 0 mls/hr CONT PRN 02/21/20 06:45 02/24/20 11:18 DC 02/23/20 21:56 8 MLS/HR Morphine Sulfate (Morphine Sulfate) 4 mg PRN Q1HR PRN 02/21/20 06:45 02/23/20 06:20 DC Multivitamins (Thera M Plus) 1 tab DAILY 02/22/20 09:00 02/22/20 08:44 DC Multivitamins/ Minerals Therapeutic (Centrum Multivit-Mineral Liq) 5 ml DAILY 02/22/20 09:00 02/26/20 07:46 5 ML Ondansetron HCl (Zofran) 4 mg PRN Q6HRS PRN 02/21/20 12:15 Pantoprazole Sodium (PROTONIX VIAL for IV PUSH) 40 mg DAILY 02/22/20 09:00 02/26/20 07:45 40 MG Pantoprazole Sodium (Protonix) 40 mg DAILYAC 02/22/20 07:30 02/21/20 22:27 DC Piperacillin Sod/ Tazobactam Sod (Zosyn Per Pharmacy) 1 each PRN DAILY PRN 02/21/20 12:15 Piperacillin Sod/ Tazobactam Sod 3.375 gm/Sodium Chloride 50 ml @ 100 mls/hr Q6HRS 02/21/20 18:00 02/26/20 05:37 100 MLS/HR Potassium Chloride/Water 100 ml @ 100 mls/hr Q1H 02/23/20 08:00 02/23/20 09:59 DC 02/23/20 09:18 100 MLS/HR Propofol 100 ml @ 0 mls/hr CONT PRN 02/21/20 06:45 02/26/20 10:47 14.2 MLS/HR Propranolol HCl (Inderal) 40 mg BID 02/21/20 21:30 02/26/20 07:46 40 MG Simvastatin (Zocor) 40 mg QHS 02/21/20 21:00 02/25/20 20:31 40 MG Sodium Chloride 1,000 ml @ 400 mls/hr Q2H30M PRN 02/26/20 10:00 02/26/20 21:59 Sodium Chloride (Normal Saline Flush) 10 ml 1X PRN PRN 02/25/20 20:00 02/26/20 19:59 Sucralfate (Carafate) 1 gm QID 02/21/20 21:30 02/21/20 22:23 DC Vitamin D (Vitamin D3) 1,000 unit DAILY 02/22/20 09:00 02/26/20 07:46 1,000 UNIT Lab Laboratory Tests Test 02/25/20 12:35 02/25/20 13:40 02/25/20 18:09 02/26/20 00:12 Glucose (Fingerstick) 282 mg/dL (70-99) 244 mg/dL (70-99) 314 mg/dL (70-99) Urine Collection Type Unknown Urine Color Yellow Urine Clarity Clear Urine pH 6.0 (<5.0-8.0) Urine Specific [place] 1.015 (1.000-1.030) Urine Protein Negative mg/dL (NEG-TRACE) Urine Glucose (UA) 100 mg/dL (NEG) Urine Ketones (Stick) Negative mg/dL (NEG) Urine Blood Small (NEG) Urine Nitrite Negative (NEG) Urine Bilirubin Negative (NEG) Urine Urobilinogen Dipstick 1.0 mg/dL (0.2 mg/dL) Urine Leukocyte Esterase Small (NEG) Urine RBC >40 /HPF (0-2) Urine WBC 1-4 /HPF (0-4) Urine Amorphous Sediment Present /HPF Urine Bacteria 0 /HPF (0-FEW) Test 02/26/20 05:50 02/26/20 05:55 02/26/20 07:40 White Blood Count 5.1 x10^3/uL (4.0-11.0) Red Blood Count 3.41 x10^6/uL (4.30-5.70) Hemoglobin 8.5 g/dL (13.0-17.5) Hematocrit 27.4 % (39.0-53.0) Mean Corpuscular Volume 80 fL (79-100) Mean Corpuscular Hemoglobin 25 pg (25-35) Mean Corpuscular Hemoglobin Concent 31 g/dL (31-37) Red Cell Distribution Width 17.7 % (11.5-14.5) Platelet Count 276 x10^3/uL (140-400) Neutrophils (%) (Auto) 75 % (31-73) Lymphocytes (%) (Auto) 11 % (24-48) Monocytes (%) (Auto) 9 % (0-9) Eosinophils (%) (Auto) 4 % (0-3) Basophils (%) (Auto) 1 % (0-3) Neutrophils # (Auto) 3.8 x10^3/uL (1.8-7.7) Lymphocytes # (Auto) 0.5 x10^3/uL (1.0-4.8) Monocytes # (Auto) 0.4 x10^3/uL (0.0-1.1) Eosinophils # (Auto) 0.2 x10^3/uL (0.0-0.7) Basophils # (Auto) 0.1 x10^3/uL (0.0-0.2) Sodium Level 142 mmol/L (136-145) Potassium Level 4.7 mmol/L (3.5-5.1) Chloride Level 103 mmol/L (98-107) Carbon Dioxide Level 33 mmol/L (21-32) Anion Gap 6 (6-14) Blood Urea Nitrogen 50 mg/dL (8-26) Creatinine 2.5 mg/dL (0.7-1.3) Estimated GFR (Cockcroft-Gault) 25.8 Glucose Level 290 mg/dL (70-99) Calcium Level 8.4 mg/dL (8.5-10.1) Phosphorus Level 5.2 mg/dL (2.6-4.7) Magnesium Level 2.2 mg/dL (1.8-2.4) Albumin 1.6 g/dL (3.4-5.0) Glucose (Fingerstick) 277 mg/dL (70-99) O2 Saturation 88 % (92-99) Arterial Blood pH 7.34 (7.35-7.45) Arterial Blood pCO2 at Patient Temp 57 mmHg (35-46) Arterial Blood pO2 at Patient Temp 60 mmHg (65-108) Arterial Blood HCO3 30 mmol/L (21-28) Arterial Blood Base Excess 3 mmol/L (-3-3) FiO2 70% vent Results All relevant outside records, renal labs, imaging studies, telemetry/EKG's were reviewed. Other Chest x-ray from 02/25/2020 IMPRESSION: 1. Lines and tubes described above. 2. Findings likely related to pulmonary edema with moderate bilateral pleural effusions. Justicifation of Admission Dx: Justifications for Admission: Justification of Admission Dx: Yes FELIBERTO BURRIS MD Feb 26, 2020 12:42
[2020-02-26] MEDS: MICAFUNGIN 100 MG in IV DEXTROSE 5% 100ML 100 ML IV SCH (13:15)
[2020-02-26] MEDS: ALBUMIN HUMAN 25% 200 ML IV SCH ×3 (13:18→21:26)
[2020-02-26] MEDS: fentaNYL HIGH DOSE PCA 55 ML IV PRN (17:13)
[2020-02-26 18:51] LABS: CREATININE,RANDOM URINE 70.5 mg/dL (Not Establ.)
[2020-02-26] MEDS: SIMVASTATIN 40 MG TABLET. PO SCH (21:23)
[2020-02-27] VITALS (24 sets, daily range): BP systolic 96–144; BP diastolic 51–69
[2020-02-27] MEDS: PIPERACILLIN/TAZOBACTAM 3.375 GM in IV NORMAL SALINE 50ML 50 ML IV SCH ×4 (00:16→17:33)
[2020-02-27] MEDS: INSULIN LISPRO 300 UNITS/3 ML VIAL. SQ SCH ×4 (00:17→17:54)
[2020-02-27 06:29] LABS: CALCIUM 8.5 mg/dL (8.5-10.1); CREATININE 2.9 mg/dL (0.7-1.3); GFR 21.7; PHOSPHORUS 6.2 mg/dL (2.6-4.7); POTASSIUM 4.7 mmol/L (3.5-5.1)
--- NOTE | 2020-02-27 07:39 | PDOC ---
[employer] PROGRESS NOTE Date of Service DOS: DATE: 02/27/20 TIME: 07:34 Chief Complaint Chief Complaint VTE Prophylaxis Ordered VTE Prophylaxis Devices: Yes VTE Pharmacological Prophylaxi: Yes Assessment/Plan Assessment/Plan impression 1. Acute hypoxic / severe hypercapnic respiratory failure, 2. Chronic obstructive pulmonary disease. 3. Type 2 diabetes mellitus with peripheral neuropathy. 4. Hypertension. 5. Hyperlipidemia. 6. atrial fibrillation 7. History of deep vein thrombosis and pulmonary emboli x 3 for which he was on Coumadin. has now an inferior vena cava filter. Placement of retrievable IVC filter 11/12 8. bilateral lower extremity //chronic venous stasis dermatitis 9. morbid obesity 10. PUI COVID 19 11. 4 mm non bleeding antral gastric ulcer and erosive gastritis (bx) 11/12 12. NATASHA 13, ISCHEMIC CVD CT HEAD 14. CODE STROKE IN ER 15. ACUTE METABOLIC ENCEPHALOPATHY 16, POSSIBLE ASPIRATION, PNEUMONIA, SHOCK 17. Distended gallbladder, pericholecystic fluid and gallstones. Findings are equivocal for acute cholecystitis. 18. Diffuse hepatic steatosis. 19. Temporary dialysis catheter inserted 02-25-20 Scrotal swelling. Yeast in groin [place] BLOOD CULTURE Final NO GROWTH AFTER 5 DAYS 02-26-20 plan icu bed pulm consult cardiology consult GI CONSULT NEPHROLOGY CONSULT Neurology consult ID CONSULT ECHO d/c meropenem Continue Zosyn. Add Zyvox and micafungin. remains full code 37 MIN CC TIME BLOOD CULTURE Final NO GROWTH AFTER 5 DAYS 02-26-20 History of Present Illness History of Present Illness 69 yr old male, transfer from [place] due to AMS, required vent support for respiratory failure BECAME HYPOXIC 0330, INTUBATED IN ER, WAS OBTUNDED, HAD ELEVATED D-DIMER BUN 32, CR 2.1 UDS NEG, PRO-BNP 5556 WAS CODE STROKE ON PRESENTATION DUE TO AMS RESIDENT OF [facility] , admitted by DR CASTANEDA HERE ON NOV 2019 D DIMER 1.82 BUT RENAL FX PROHIBITS CTA CHEST, DEFER TO PULM poor candidate for long-term anticoagulation. WAS outpatient referral for [facility] by cardiology 02/27/2020 Patient seen and evaluated in ICU. On ventilator, FiO2 100%, PEEP 5. Continue Lasix, Zosyn, and linezolid. Charts and labs reviewed. Vitals/I&O Vitals/I&O: Vital Signs Date Time Temp Pulse Resp B/P (MAP) Pulse Ox O2 Delivery O2 Flow Rate FiO2 02/27/20 06:00 68 22 140/69 (92) 99 Ventilator 02/27/20 04:00 98.5 98.5 I & O 02/26/20 02/26/20 02/27/20 15:00 23:00 07:00 Intake Total 300 ml 3067 ml 1520.8 ml Output Total 530 ml 530 ml 680 ml Balance -230 ml 2537 ml 840.8 ml Physical Exam Physical Exam: GENERAL: Intubated, sedated male in COVID isolation. HEENT: Normocephalic, atraumatic, anicteric. LUNGS: Clear anteriorly. HEART: S1, S2. ABDOMEN: Obese. Bowel sounds present, nondistended. GENITOURINARY: Scrotal swelling. Yeast in groin [place] in place. EXTREMITIES: Bilateral venous stasis changes present. Wounds present over both lower extremities, hyperkeratotic skin, no cyanosis, no clubbing. DERMATOLOGIC: Warm, dry. No generalized rash except for above. Right internal jugular vein in place. BLOOD CULTURE Final NO GROWTH AFTER 5 DAYS 1-03 General: Other (Intubated.) Heart: Regular rate Lungs: Clear Abdomen: Normal bowel sounds Extremities: Other (1+ bilateral LE edema. Chronic bilateral LE venous stasis dermatitis ) Labs Labs: Laboratory Tests Test 02/26/20 07:40 02/26/20 13:33 02/26/20 18:25 02/26/20 18:35 O2 Saturation 88 % (92-99) Arterial Blood pH 7.34 (7.35-7.45) Arterial Blood pCO2 at Patient Temp 57 mmHg (35-46) Arterial Blood pO2 at Patient Temp 60 mmHg (65-108) Arterial Blood HCO3 30 mmol/L (21-28) Arterial Blood Base Excess 3 mmol/L (-3-3) FiO2 70% vent Glucose (Fingerstick) 242 mg/dL (70-99) 199 mg/dL (70-99) Urine Random Creatinine 70.5 mg/dL (Not Establ.) Urine Random Total Protein 24.9 mg/dL (Not Establ.) Urine Protein/Creatinine Ratio 353 mg/g (0-200) Test 02/27/20 00:15 02/27/20 05:50 02/27/20 05:54 Glucose (Fingerstick) 192 mg/dL (70-99) 224 mg/dL (70-99) Sodium Level 143 mmol/L (136-145) Potassium Level 4.7 mmol/L (3.5-5.1) Chloride Level 102 mmol/L (98-107) Carbon Dioxide Level 33 mmol/L (21-32) Anion Gap 8 (6-14) Blood Urea Nitrogen 57 mg/dL (8-26) Creatinine 2.9 mg/dL (0.7-1.3) Estimated GFR (Cockcroft-Gault) 21.7 Glucose Level 215 mg/dL (70-99) Calcium Level 8.5 mg/dL (8.5-10.1) Phosphorus Level 6.2 mg/dL (2.6-4.7) Magnesium Level 2.2 mg/dL (1.8-2.4) Albumin 2.0 g/dL (3.4-5.0) Comment Review of Relevant I have reviewed the following items megan (where applicable) has been applied. Medications: Current Medications Medications (Trade) Dose Ordered Sig/Dulce Route PRN Reason Start Time Stop Time Status Last Admin Dose Admin Albumin Human 200 ml @ 200 mls/hr TID IV 02/26/20 12:30 02/27/20 21:59 02/26/20 21:26 Furosemide (Lasix) 40 mg TID IVP 02/26/20 12:30 02/27/20 21:01 02/26/20 21:28 Justifications for Admission Other Justification resp failure BARB OCHOA MD Feb 27, 2020 07:39
--- NOTE | 2020-02-27 07:41 | PDOC ---
Infectious Disease Note Subjective Subjective Patient remains intubated/sedated ROS ROS no n/v/d/ Vital Sign Vital Signs Vital Signs Date Time Temp Pulse Resp B/P (MAP) Pulse Ox O2 Delivery O2 Flow Rate FiO2 02/27/20 06:00 68 22 140/69 (92) 99 Ventilator 02/27/20 04:00 98.5 98.5 Physical Exam PHYSICAL EXAM GENERAL: Intubated, sedated HEENT: Normocephalic, atraumatic, anicteric. OGT/ETT present LUNGS: Clear anteriorly. HEART: S1, S2. ABDOMEN: Obese. Bowel sounds present, nondistended. GENITOURINARY: Scrotal swelling. Yeast in groin [place] in place. EXTREMITIES: Bilateral venous stasis changes present. Wounds present over both lower extremities, hyperkeratotic skin, no cyanosis, no clubbing. DERMATOLOGIC: Warm, dry. No generalized rash except for above. Lines right internal jugular vein in place. Temporary HDC present Labs Lab Laboratory Tests Test 02/26/20 07:40 02/26/20 13:33 02/26/20 18:25 02/26/20 18:35 O2 Saturation 88 % (92-99) Arterial Blood pH 7.34 (7.35-7.45) Arterial Blood pCO2 at Patient Temp 57 mmHg (35-46) Arterial Blood pO2 at Patient Temp 60 mmHg (65-108) Arterial Blood HCO3 30 mmol/L (21-28) Arterial Blood Base Excess 3 mmol/L (-3-3) FiO2 70% vent Glucose (Fingerstick) 242 mg/dL (70-99) 199 mg/dL (70-99) Urine Random Creatinine 70.5 mg/dL (Not Establ.) Urine Random Total Protein 24.9 mg/dL (Not Establ.) Urine Protein/Creatinine Ratio 353 mg/g (0-200) Test 02/27/20 00:15 02/27/20 05:50 02/27/20 05:54 Glucose (Fingerstick) 192 mg/dL (70-99) 224 mg/dL (70-99) Sodium Level 143 mmol/L (136-145) Potassium Level 4.7 mmol/L (3.5-5.1) Chloride Level 102 mmol/L (98-107) Carbon Dioxide Level 33 mmol/L (21-32) Anion Gap 8 (6-14) Blood Urea Nitrogen 57 mg/dL (8-26) Creatinine 2.9 mg/dL (0.7-1.3) Estimated GFR (Cockcroft-Gault) 21.7 Glucose Level 215 mg/dL (70-99) Calcium Level 8.5 mg/dL (8.5-10.1) Phosphorus Level 6.2 mg/dL (2.6-4.7) Magnesium Level 2.2 mg/dL (1.8-2.4) Albumin 2.0 g/dL (3.4-5.0) Micro Microbiology 02/21/20 Blood Culture - Final, Complete NO GROWTH AFTER 5 DAYS Objective Assessment Febrile illness resolved Acute hypoxic respiratory failure status post intubation Encephalopathy likely metabolic NATASHA with underlying CKD Diabetes mellitus Chronic venous stasis with bilateral chronic nonhealing lower extremity wounds with mild superimposed cellulitis Yeast in groin Elevated ammonia , cholelithiasis with distended gb on ct abdomen. History of atrial fibrillation. History of pulmonary embolism and deep venous thrombosis, status post IVC filter. Rapid COVID negative, 02/20. 10. Chronic venous stasis dermatitis, bilateral lower extremities with mild superimposed bilateral lower extremity cellulitis. 11. Congestive heart failure. 12. residential resident. 13. Elevated D-dimer. 14. Anemia. RECOMMENDATIONS: 1. Discontinue meropenem as the patient does not need 2-beta lactams 2. Continue Zosyn. 3. Add Zyvox and micafungin. 4. Follow up labs and cultures. 5. Continue local wound care. 6. Continue supportive care. 7. GI, Pulmonary, Neurology and Renal team consulte Plan Plan of Care Continue Zosyn Zyvox and micafungin Follow-up cultures Continue wound care Continue supportive care Monitor labs Discussed with KENISHA FARRIS MD Feb 27, 2020 07:41
[2020-02-27 07:56] LABS: BASE EXCESS ABG 6 mmol/L (-3-3); HCO3 ABG 31 mmol/L (21-28); PCO2 ABG 53 mmHg (35-46); PO2 ABG 62 mmHg (65-108); SAT O2 ABG 90 % (92-99)
[2020-02-27 07:58] LABS: FIO2 ABG 70
[2020-02-27] MEDS: ALBUMIN HUMAN 25% 200 ML IV SCH ×3 (07:58→20:44)
[2020-02-27] MEDS: CHOLECALCIFEROL (VITAMIN D3) 1,000 UNIT TABLET PO SCH (07:59)
[2020-02-27] MEDS: PANTOPRAZOLE IV PUSH 40 MG VIAL. IVP SCH (07:59)
[2020-02-27] MEDS: FENOFIBRATE,MICRONIZED 134 MG CAPSULE PO SCH (07:59)
[2020-02-27] MEDS: MULTIVITAMINS,THERAPEUTIC 5 ML ORAL LIQUID. PEG SCH (07:59)
[2020-02-27] MEDS: FUROSEMIDE 40 MG/4 ML VIAL. IVP SCH (07:59)
[2020-02-27] MEDS: PROPRANOLOL 40 MG TABLET. PO SCH ×2 (08:00→20:43)
[2020-02-27] MEDS: ELECTROLYTE (ICU) PROTOCOL. MC SCH (08:00)
[2020-02-27] MEDS: PROPOFOL 100 ML IV PRN ×4 (08:11→20:43)
--- NOTE | 2020-02-27 08:19 | RAD ---
XR CHEST 1V History: Reason: resp. failure / Spl. Instructions: / History: Comparison: February 25, 2020 Findings: Stable right-sided central lines. Stable enteric tube and endotracheal tube. Decreased pulmonary edema. Decreased small bilateral layering pleural effusions, unchanged. Increased cardiac size, unchanged. Impression: 1. Decreased pulmonary edema and small bilateral layering pleural effusions. Electronically signed by: Juventino Moran DO (02/27/2020 8:16 AM) [id number]
--- NOTE | 2020-02-27 08:47 | RAD ---
Procedure: Ultrasound-guided placement of right internal jugular temporary dialysis catheter 02/27/2020 6:44 AM Clinical Indication: Renal failure hemodialysis, RENAL FAILURE Discussion: The risks and benefits of the procedure were discussed the patient and/or their registration representative. Informed consent was obtained. A timeout procedure was performed. All elements of maximal sterile barrier technique including the use of a cap, mask, sterile gown, sterile gloves, large sterile sheet, appropriate hand hygiene, and 2% chlorhexidine for cutaneous antisepsis (or acceptable alternative antiseptic per current guidelines) were followed for this procedure. The patient was prepped and draped in the usual sterile fashion. Ultrasound interrogation of the right neck revealed patency and compressibility of the right internal jugular vein. A 21-gauge micropuncture was then used to gain access to this vein under ultrasound guidance. A hard copy ultrasound image was recorded. A guidewire was advanced centrally. 5 [place]ese sheath was placed. Over a wire following dilatation, a temporary dialysis catheter was advanced centrally. Catheter was found to flush and aspirate normally. Follow-up chest radiograph demonstrates tip in acceptable position. The catheter was secured in place and a sterile dressing was applied. No immediate complications were identified. Impression: Successful ultrasound-guided placement of right internal jugular temporary dialysis catheter
[2020-02-27] MEDS: IRON SUCROSE COMPLEX 200 MG in IV NORMAL SALINE 100ML 100 ML IV SCH (09:09)
--- NOTE | 2020-02-27 09:48 | PDOC ---
DATE OF SERVICE DATE: 02/27/20 TIME: 09:35 SUBJECTIVE ROS Stable, remains intubated OBJECTIVE Vital Signs Vital Signs Date Time Temp Pulse Resp B/P (MAP) Pulse Ox O2 Delivery O2 Flow Rate FiO2 02/27/20 09:00 61 22 123/59 (80) 95 Ventilator 02/27/20 08:00 98.4 98.4 I & 0 Intake and Output 02/27/20 07:00 Intake Total 4887.8 ml Output Total 1740 ml Balance 3147.8 ml Intake IV Total 1623.8 ml Tube Feeding 2764 ml Other 500 ml Output Urine Total 1740 ml PHYSICAL EXAM Physical Exam GENERAL: Intubated, sedated HEENT: anicteric. OGT/ETT present LUNGS: Clear anteriorly. HEART: S1, S2. ABDOMEN: Obese. Bowel sounds present, nondistended. : Scrotal swelling. Yeast in groin, [place] in place. EXTREMITIES: Bilateral venous stasis changes present. Wounds present over both lower extremities, hyperkeratotic skin, no cyanosis, no clubbing. DERM Warm, dry. No generalized rash except for above. 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 Julio, Presumed DM/ HTNsive Recently labs Cr 2.1 -2.2 , UA unremarkable, Rt Kidney reported normal on Abd US Proteinuria- Low grade Pr/Cr < 500 Hx of NATASHA on CKD-in Oct 2019 , 2/2 GI bleed ; in 2017 . Past vazquez no significant proteinuria Acute Anemia in Oct 2019 - s/p EGD with PUD . s/p PRBC , FFP's in Oct 2019 . Currently on IV Fe DM II- per primary HTN-- stable Acute on chronic diastolic CHF; Echo 03/13 with preserved LV systolic function . S/p IV Bumex at [facility] PAFIB; Was in AFIB with controlled rate per EKG at [facility]. Presently SR Hx DVT/PE. S/p IVC filter Morbid obesity Anasarca on IV Lasix and IV albumin started over this weekend , decrease dose as above ,Hypoalbuminemia, Obesity and pulmonary hypertension may be contributing Diffuse hepatic steatosis : defered to Primary team/ GI. COMMENT/RELEVANT DATA Meds Current Medications Medications (Trade) Dose Ordered Sig/Dulce Start Time Stop Time Status Last Admin Dose Admin Albumin Human 200 ml @ 200 mls/hr TID 02/26/20 12:30 02/27/20 21:59 02/27/20 07:58 200 MLS/HR Apixaban (Eliquis) 5 mg BID 02/21/20 21:30 02/22/20 09:28 DC 02/22/20 08:46 5 MG Bisacodyl (Dulcolax Supp) 10 mg PRN DAILY PRN 02/21/20 12:15 Darbepoetin Jake (ARANESP for DIALYSIS PTS) 60 mcg WEEKLYHS 02/25/20 21:00 02/26/20 07:45 60 MCG Dextrose (Dextrose 50%-Water Syringe) 12.5 gm PRN Q15MIN PRN 02/23/20 08:00 Famotidine (Pepcid Vial) 20 mg BID 02/21/20 13:00 02/21/20 12:53 DC Fenofibrate (Lofibra) 134 mg DAILY 02/22/20 09:00 02/27/20 07:59 134 MG Fentanyl Citrate 55 ml @ 0 mls/hr CONT PRN 02/21/20 11:00 02/26/20 17:13 1.5 MLS/HR Fentanyl Citrate (Fentanyl 2ml Vial) 50 mcg PRN Q1HR PRN 02/21/20 06:45 Furosemide (Lasix) 40 mg BID 02/28/20 09:00 Influenza Virus Vaccine Quadrival (Fluzone Quad [id number] Syringe) 0.5 ml ONCE ONCE 02/22/20 09:00 02/22/20 09:01 DC Info (Anti-Coagulation Monitoring By Pharmacy) 1 each PRN DAILY PRN 02/22/20 08:15 Info (FLU VACCINE SCREEN per RX) 1 each 1X ONCE 02/22/20 00:00 02/22/20 00:01 UNV Info (Icu Electrolyte Protocol) 1 ea DAILY 02/22/20 09:00 02/27/20 08:00 1 EA Info (PHARMACY MONITORING -- do not chart) 1 each PRN DAILY PRN 02/26/20 10:00 Insulin Human Lispro (HumaLOG) 0-5 UNITS Q6HRS 02/23/20 12:00 02/27/20 05:56 3 UNITS Iron Sucrose 200 mg/Sodium Chloride 110 ml @ 55 mls/hr 3X/WEEK 02/27/20 09:00 03/07/20 10:59 02/27/20 09:09 55 MLS/HR Lidocaine HCl (Buffered Lidocaine 1%) 6 ml 1X ONCE 02/25/20 16:45 02/25/20 16:47 DC 02/25/20 16:50 4 ML Linezolid/Dextrose 300 ml @ 300 mls/hr Q12HR 02/22/20 11:30 02/22/20 11:20 DC Magnesium Sulfate 50 ml @ 25 mls/hr PRN DAILY PRN 02/24/20 08:15 Meropenem 500 mg/ Sodium Chloride 50 ml @ 100 mls/hr Q8HRS 02/21/20 14:00 02/22/20 08:19 DC 02/22/20 05:38 100 MLS/HR Micafungin Sodium 100 mg/Dextrose 100 ml @ 100 mls/hr Q24H 02/22/20 12:00 02/26/20 13:15 100 MLS/HR Midazolam HCl 100 ml @ 0 mls/hr CONT PRN 02/21/20 06:45 02/24/20 11:18 DC 02/23/20 21:56 8 MLS/HR Morphine Sulfate (Morphine Sulfate) 4 mg PRN Q1HR PRN 02/21/20 06:45 02/23/20 06:20 DC Multivitamins (Thera M Plus) 1 tab DAILY 02/22/20 09:00 02/22/20 08:44 DC Multivitamins/ Minerals Therapeutic (Centrum Multivit-Mineral Liq) 5 ml DAILY 02/22/20 09:00 02/27/20 07:59 5 ML Ondansetron HCl (Zofran) 4 mg PRN Q6HRS PRN 02/21/20 12:15 Pantoprazole Sodium (PROTONIX VIAL for IV PUSH) 40 mg DAILY 02/22/20 09:00 02/27/20 07:59 40 MG Pantoprazole Sodium (Protonix) 40 mg DAILYAC 02/22/20 07:30 02/21/20 22:27 DC Piperacillin Sod/ Tazobactam Sod (Zosyn Per Pharmacy) 1 each PRN DAILY PRN 02/21/20 12:15 Piperacillin Sod/ Tazobactam Sod 3.375 gm/Sodium Chloride 50 ml @ 100 mls/hr Q6HRS 02/21/20 18:00 02/27/20 05:55 100 MLS/HR Potassium Chloride/Water 100 ml @ 100 mls/hr Q1H 02/23/20 08:00 02/23/20 09:59 DC 02/23/20 09:18 100 MLS/HR Propofol 100 ml @ 0 mls/hr CONT PRN 02/21/20 06:45 02/27/20 08:11 19 MLS/HR Propranolol HCl (Inderal) 40 mg BID 02/21/20 21:30 02/27/20 08:00 40 MG Simvastatin (Zocor) 40 mg QHS 02/21/20 21:00 02/26/20 21:23 40 MG Sodium Chloride 1,000 ml @ 400 mls/hr Q2H30M PRN 02/26/20 10:00 02/26/20 21:59 DC Sodium Chloride (Normal Saline Flush) 10 ml 1X PRN PRN 02/25/20 20:00 02/26/20 19:59 DC Sucralfate (Carafate) 1 gm QID 02/21/20 21:30 02/21/20 22:23 DC Vitamin D (Vitamin D3) 1,000 unit DAILY 02/22/20 09:00 02/27/20 07:59 1,000 UNIT Lab Laboratory Tests Test 02/26/20 13:33 02/26/20 18:25 02/26/20 18:35 02/27/20 00:15 Glucose (Fingerstick) 242 mg/dL (70-99) 199 mg/dL (70-99) 192 mg/dL (70-99) Urine Random Creatinine 70.5 mg/dL (Not Establ.) Urine Random Total Protein 24.9 mg/dL (Not Establ.) Urine Protein/Creatinine Ratio 353 mg/g (0-200) Test 02/27/20 05:50 02/27/20 05:54 02/27/20 07:30 Sodium Level 143 mmol/L (136-145) Potassium Level 4.7 mmol/L (3.5-5.1) Chloride Level 102 mmol/L (98-107) Carbon Dioxide Level 33 mmol/L (21-32) Anion Gap 8 (6-14) Blood Urea Nitrogen 57 mg/dL (8-26) Creatinine 2.9 mg/dL (0.7-1.3) Estimated GFR (Cockcroft-Gault) 21.7 Glucose Level 215 mg/dL (70-99) Calcium Level 8.5 mg/dL (8.5-10.1) Phosphorus Level 6.2 mg/dL (2.6-4.7) Magnesium Level 2.2 mg/dL (1.8-2.4) Albumin 2.0 g/dL (3.4-5.0) Glucose (Fingerstick) 224 mg/dL (70-99) O2 Saturation 90 % (92-99) Arterial Blood pH 7.39 (7.35-7.45) Arterial Blood pCO2 at Patient Temp 53 mmHg (35-46) Arterial Blood pO2 at Patient Temp 62 mmHg (65-108) Arterial Blood HCO3 31 mmol/L (21-28) Arterial Blood Base Excess 6 mmol/L (-3-3) FiO2 70 Results All relevant outside records, renal labs, imaging studies, telemetry/EKG's were reviewed. Justicifation of Admission Dx: Justifications for Admission: Justification of Admission Dx: Yes MULUGETA PEREZ MD Feb 27, 2020 09:48
--- NOTE | 2020-02-27 09:50 | PDOC ---
PROGRESS NOTES Date of Service DATE: 02/27/20 TIME: 09:47 Assessment Possible seizure activity noted yesterday Metabolic encephalopathy Respiratory failure, acute kidney injury, diabetes, history of GI bleed several months ago, cholelithiasis, elevated ammonia level, diabetes, venous stasis and cellulitis, sepsis, history of atrial fibrillation, history of pulmonary embolism and deep venous thrombosis, congestive heart failure No evidence that he had a stroke. Febrile illness resolved Rapid COVID negative, 02/20. Plan Patient is on fentanyl and propofol, I see no need for electroencephalogram or adding on levetiracetam No additional neurological studies or treatments needed at this time Neurology will follow at intervals Subjective None Objective Vital Signs Date Time Temp Pulse Resp B/P (MAP) Pulse Ox O2 Delivery O2 Flow Rate FiO2 02/27/20 09:00 61 22 123/59 (80) 95 Ventilator 02/27/20 08:00 98.4 98.4 Intake and Output 02/27/20 07:00 Intake Total 4887.8 ml Output Total 1740 ml Balance 3147.8 ml Intake IV Total 1623.8 ml Tube Feeding 2764 ml Other 500 ml Output Urine Total 1740 ml PHYSICAL EXAM Intubated and sedated PERRL. No spontaneous extraocular movements CN: no focal findings. Muscle tone: normal. Muscle strength: No response to pain DTR: 0+ Plantar reflex: Silent Gait: not examined in bed. Sensory exam: no abnormal findings. No cerebellar signs elicited. Review of Relevant I have reviewed the following items megan (where applicable) has been applied. Labs Laboratory Tests Test 02/25/20 12:35 02/25/20 13:40 02/25/20 18:09 02/26/20 00:12 Glucose (Fingerstick) 282 mg/dL (70-99) 244 mg/dL (70-99) 314 mg/dL (70-99) Urine Collection Type Unknown Urine Color Yellow Urine Clarity Clear Urine pH 6.0 (<5.0-8.0) Urine Specific [place] 1.015 (1.000-1.030) Urine Protein Negative mg/dL (NEG-TRACE) Urine Glucose (UA) 100 mg/dL (NEG) Urine Ketones (Stick) Negative mg/dL (NEG) Urine Blood Small (NEG) Urine Nitrite Negative (NEG) Urine Bilirubin Negative (NEG) Urine Urobilinogen Dipstick 1.0 mg/dL (0.2 mg/dL) Urine Leukocyte Esterase Small (NEG) Urine RBC >40 /HPF (0-2) Urine WBC 1-4 /HPF (0-4) Urine Amorphous Sediment Present /HPF Urine Bacteria 0 /HPF (0-FEW) Test 02/26/20 05:50 02/26/20 05:55 02/26/20 07:40 02/26/20 13:33 White Blood Count 5.1 x10^3/uL (4.0-11.0) Red Blood Count 3.41 x10^6/uL (4.30-5.70) Hemoglobin 8.5 g/dL (13.0-17.5) Hematocrit 27.4 % (39.0-53.0) Mean Corpuscular Volume 80 fL (79-100) Mean Corpuscular Hemoglobin 25 pg (25-35) Mean Corpuscular Hemoglobin Concent 31 g/dL (31-37) Red Cell Distribution Width 17.7 % (11.5-14.5) Platelet Count 276 x10^3/uL (140-400) Neutrophils (%) (Auto) 75 % (31-73) Lymphocytes (%) (Auto) 11 % (24-48) Monocytes (%) (Auto) 9 % (0-9) Eosinophils (%) (Auto) 4 % (0-3) Basophils (%) (Auto) 1 % (0-3) Neutrophils # (Auto) 3.8 x10^3/uL (1.8-7.7) Lymphocytes # (Auto) 0.5 x10^3/uL (1.0-4.8) Monocytes # (Auto) 0.4 x10^3/uL (0.0-1.1) Eosinophils # (Auto) 0.2 x10^3/uL (0.0-0.7) Basophils # (Auto) 0.1 x10^3/uL (0.0-0.2) Sodium Level 142 mmol/L (136-145) Potassium Level 4.7 mmol/L (3.5-5.1) Chloride Level 103 mmol/L (98-107) Carbon Dioxide Level 33 mmol/L (21-32) Anion Gap 6 (6-14) Blood Urea Nitrogen 50 mg/dL (8-26) Creatinine 2.5 mg/dL (0.7-1.3) Estimated GFR (Cockcroft-Gault) 25.8 Glucose Level 290 mg/dL (70-99) Calcium Level 8.4 mg/dL (8.5-10.1) Phosphorus Level 5.2 mg/dL (2.6-4.7) Magnesium Level 2.2 mg/dL (1.8-2.4) Albumin 1.6 g/dL (3.4-5.0) Glucose (Fingerstick) 277 mg/dL (70-99) 242 mg/dL (70-99) O2 Saturation 88 % (92-99) Arterial Blood pH 7.34 (7.35-7.45) Arterial Blood pCO2 at Patient Temp 57 mmHg (35-46) Arterial Blood pO2 at Patient Temp 60 mmHg (65-108) Arterial Blood HCO3 30 mmol/L (21-28) Arterial Blood Base Excess 3 mmol/L (-3-3) FiO2 70% vent Test 02/26/20 18:25 02/26/20 18:35 02/27/20 00:15 02/27/20 05:50 Glucose (Fingerstick) 199 mg/dL (70-99) 192 mg/dL (70-99) Urine Random Creatinine 70.5 mg/dL (Not Establ.) Urine Random Total Protein 24.9 mg/dL (Not Establ.) Urine Protein/Creatinine Ratio 353 mg/g (0-200) Sodium Level 143 mmol/L (136-145) Potassium Level 4.7 mmol/L (3.5-5.1) Chloride Level 102 mmol/L (98-107) Carbon Dioxide Level 33 mmol/L (21-32) Anion Gap 8 (6-14) Blood Urea Nitrogen 57 mg/dL (8-26) Creatinine 2.9 mg/dL (0.7-1.3) Estimated GFR (Cockcroft-Gault) 21.7 Glucose Level 215 mg/dL (70-99) Calcium Level 8.5 mg/dL (8.5-10.1) Phosphorus Level 6.2 mg/dL (2.6-4.7) Magnesium Level 2.2 mg/dL (1.8-2.4) Albumin 2.0 g/dL (3.4-5.0) Test 02/27/20 05:54 02/27/20 07:30 Glucose (Fingerstick) 224 mg/dL (70-99) O2 Saturation 90 % (92-99) Arterial Blood pH 7.39 (7.35-7.45) Arterial Blood pCO2 at Patient Temp 53 mmHg (35-46) Arterial Blood pO2 at Patient Temp 62 mmHg (65-108) Arterial Blood HCO3 31 mmol/L (21-28) Arterial Blood Base Excess 6 mmol/L (-3-3) FiO2 70 Laboratory Tests Test 02/26/20 13:33 02/26/20 18:25 02/26/20 18:35 02/27/20 00:15 Glucose (Fingerstick) 242 mg/dL (70-99) 199 mg/dL (70-99) 192 mg/dL (70-99) Urine Random Creatinine 70.5 mg/dL (Not Establ.) Urine Random Total Protein 24.9 mg/dL (Not Establ.) Urine Protein/Creatinine Ratio 353 mg/g (0-200) Test 02/27/20 05:50 02/27/20 05:54 02/27/20 07:30 Sodium Level 143 mmol/L (136-145) Potassium Level 4.7 mmol/L (3.5-5.1) Chloride Level 102 mmol/L (98-107) Carbon Dioxide Level 33 mmol/L (21-32) Anion Gap 8 (6-14) Blood Urea Nitrogen 57 mg/dL (8-26) Creatinine 2.9 mg/dL (0.7-1.3) Estimated GFR (Cockcroft-Gault) 21.7 Glucose Level 215 mg/dL (70-99) Calcium Level 8.5 mg/dL (8.5-10.1) Phosphorus Level 6.2 mg/dL (2.6-4.7) Magnesium Level 2.2 mg/dL (1.8-2.4) Albumin 2.0 g/dL (3.4-5.0) Glucose (Fingerstick) 224 mg/dL (70-99) O2 Saturation 90 % (92-99) Arterial Blood pH 7.39 (7.35-7.45) Arterial Blood pCO2 at Patient Temp 53 mmHg (35-46) Arterial Blood pO2 at Patient Temp 62 mmHg (65-108) Arterial Blood HCO3 31 mmol/L (21-28) Arterial Blood Base Excess 6 mmol/L (-3-3) FiO2 70 Microbiology 02/25/20 Urine Culture - Final, Complete 02/21/20 Blood Culture - Final, Complete NO GROWTH AFTER 5 DAYS Medications Current Medications Sodium Chloride (Normal Saline Flush) 3 ml QSHIFT PRN IV AFTER MEDS AND BLOOD DRAWS; Start 02/21/20 at 06:45 Sodium Chloride 1,000 ml @ 100 mls/hr Q10H IV Last administered on 02/24/20at 04:45; Start 02/21/20 at 06:45; Stop 02/24/20 at 08:11; Status DC Fentanyl Citrate 30 ml @ 0 mls/hr CONT PRN IV SEE PROTOCOL Last administered on 02/21/20at 07:26; Start 02/21/20 at 06:45; Stop 02/21/20 at 10:59; Status DC Propofol 100 ml @ 0 mls/hr CONT PRN IV PER PROTOCOL Last administered on 02/27/20at 08:11; Start 02/21/20 at 06:45 Fentanyl Citrate (Fentanyl 2ml Vial) 25 mcg PRN Q1HR PRN IV SEE COMMENTS; Start 02/21/20 at 06:45 Fentanyl Citrate (Fentanyl 2ml Vial) 50 mcg PRN Q1HR PRN IV SEE COMMENTS; Start 02/21/20 at 06:45 Famotidine (Pepcid Vial) 20 mg BID IVP Last administered on 02/21/20at 10:23; Start 02/21/20 at 09:00; Stop 02/21/20 at 12:53; Status DC Morphine Sulfate (Morphine Sulfate) 2 mg PRN Q1HR PRN IV SEE COMMENTS.; Start 02/21/20 at 06:45; Stop 02/23/20 at 06:20; Status DC Morphine Sulfate (Morphine Sulfate) 4 mg PRN Q1HR PRN IV SEE COMMENTS.; Start 02/21/20 at 06:45; Stop 02/23/20 at 06:20; Status DC Midazolam HCl 100 ml @ 0 mls/hr CONT PRN IV SEE PROTOCOL Last administered on 02/23/20at 21:56; Start 02/21/20 at 06:45; Stop 02/24/20 at 11:18; Status DC Fentanyl Citrate 55 ml @ 0 mls/hr CONT PRN IV PAIN/SEDATION Last administered on 02/26/20at 17:13; Start 02/21/20 at 11:00 Ondansetron HCl (Zofran) 4 mg PRN Q6HRS PRN IVP NAUSEA/VOMITING; Start 02/21/20 at 12:15 Famotidine (Pepcid Vial) 20 mg BID IVP ; Start 02/21/20 at 13:00; Stop 02/21/20 at 12:53; Status DC Info (Icu Electrolyte Protocol) 1 ea DAILY MC Last administered on 02/27/20at 08:00; Start 02/22/20 at 09:00 Sodium Chloride (Normal Saline Flush) 3 ml QSHIFT PRN IV AFTER MEDS AND BLOOD DRAWS; Start 02/21/20 at 12:15; Status Cancel Bisacodyl (Dulcolax Supp) 10 mg PRN DAILY PRN [facility] CONSTIPATION; Start 02/21/20 at 12:15 Piperacillin Sod/ Tazobactam Sod (Zosyn Per Pharmacy) 1 each PRN DAILY PRN MC SEE COMMENTS; Start 02/21/20 at 12:15 Meropenem 500 mg/ Sodium Chloride 50 ml @ 100 mls/hr Q8HRS IV Last administered on 02/22/20at 05:38; Start 02/21/20 at 14:00; Stop 02/22/20 at 08:19; Status DC Pantoprazole Sodium (PROTONIX VIAL for IV PUSH) 40 mg DAILYAC IVP ; Start 02/22/20 at 16:30; Status Cancel Furosemide (Lasix) 40 mg 1X ONCE IVP Last administered on 02/21/20at 16:24; Start 02/21/20 at 15:00; Stop 02/21/20 at 15:01; Status DC Piperacillin Sod/ Tazobactam Sod 3.375 gm/Sodium Chloride 50 ml @ 100 mls/hr Q6HRS IV Last administered on 02/27/20 05:55; Start 02/21/20 at 18:00 Simvastatin (Zocor) 40 mg QHS PO Last administered on 02/26/20 21:23; Start 02/21/20 at 21:00 Propranolol HCl (Inderal) 40 mg BID PO ; Start 02/21/20 at 21:00; Status Cancel Apixaban (Eliquis) 5 mg BID PO Last administered on 02/22/20at 08:46; Start 02/21/20 at 21:30; Stop 02/22/20 at 09:28; Status DC Pantoprazole Sodium (Protonix) 40 mg DAILYAC PO ; Start 02/22/20 at 07:30; Stop 02/21/20 at 22:27; Status DC Propranolol HCl (Inderal) 40 mg BID PO Last administered on 02/27/20 08:00; Start 02/21/20 at 21:30 Sucralfate (Carafate) 1 gm QID PO ; Start 02/21/20 at 21:30; Stop 02/21/20 at 22:23; Status DC Vitamin D (Vitamin D3) 1,000 unit DAILY PO Last administered on 02/27/20 07:59; Start 02/22/20 at 09:00 Fenofibrate (Lofibra) 134 mg DAILY PO Last administered on 02/27/20 07:59; Start 02/22/20 at 09:00 Multivitamins (Thera M Plus) 1 tab DAILY PO ; Start 02/22/20 at 09:00; Stop 02/22/20 at 08:44; Status DC Pantoprazole Sodium (PROTONIX VIAL for IV PUSH) 40 mg DAILY IVP Last administered on 02/27/20 07:59; Start 02/22/20 at 09:00 Info (FLU VACCINE SCREEN per RX) 1 each 1X ONCE MC ; Start 02/22/20 at 00:00; Stop 02/22/20 at 00:01; Status UNV Influenza Virus Vaccine Quadrival (Fluzone Quad 1510-4344 Syringe) 0.5 ml ONCE ONCE VAX IM ; Start 02/22/20 at 09:00; Stop 02/22/20 at 09:01; Status DC Info (Anti-Coagulation Monitoring By Pharmacy) 1 each PRN DAILY PRN MC SEE COMMENTS; Start 02/22/20 at 08:15 Linezolid/Dextrose 300 ml @ 300 mls/hr Q12HR IV Last administered on 02/27/20 07:58; Start 02/22/20 at 09:00 Multivitamins/ Minerals Therapeutic (Centrum Multivit-Mineral Liq) 5 ml DAILY PEG Last administered on 02/27/20 07:59; Start 02/22/20 at 09:00 Furosemide (Lasix) 40 mg DAILY IVP Last administered on 1/3/21at 07:46; Start 02/22/20 at 10:00; Stop 02/26/20 at 12:47; Status DC Micafungin Sodium 100 mg/Dextrose 100 ml @ 100 mls/hr Q24H IV Last administered on 02/26/20at 13:15; Start 02/22/20 at 12:00 Linezolid/Dextrose 300 ml @ 300 mls/hr Q12HR IV ; Start 02/22/20 at 11:30; Stop 02/22/20 at 11:20; Status DC Potassium Chloride/Water 100 ml @ 100 mls/hr Q1H IV Last administered on 02/23/20at 09:18; Start 02/23/20 at 08:00; Stop 02/23/20 at 09:59; Status DC Magnesium Sulfate 50 ml @ 25 mls/hr 1X ONCE IV Last administered on 02/23/20at 08:17; Start 02/23/20 at 08:00; Stop 02/23/20 at 09:59; Status DC Insulin Human Lispro (HumaLOG) 0-5 UNITS Q6HRS SQ Last administered on 02/27/20at 05:56; Start 02/23/20 at 12:00 Dextrose (Dextrose 50%-Water Syringe) 12.5 gm PRN Q15MIN PRN IV SEE COMMENTS; Start 02/23/20 at 08:00 Magnesium Sulfate 50 ml @ 25 mls/hr PRN DAILY PRN IV for Mag < 1.7 on am labs; Start 02/24/20 at 08:15 Darbepoetin Jake (ARANESP for DIALYSIS PTS) 60 mcg WEEKLYHS SQ Last administered on 02/26/20at 07:45; Start 02/25/20 at 21:00 Iron Sucrose 200 mg/Sodium Chloride 110 ml @ 55 mls/hr 3X/WEEK IV Last administered on 02/27/20at 09:09; Start 02/27/20 at 09:00; Stop 03/07/20 at 10:59 Lidocaine HCl (Buffered Lidocaine 1%) 3 ml STK-MED ONCE .ROUTE ; Start 02/25/20 at 15:37; Stop 02/25/20 at 15:38; Status DC Lidocaine HCl (Buffered Lidocaine 1%) 6 ml 1X ONCE INJ Last administered on 02/25/20at 16:50; Start 02/25/20 at 16:45; Stop 02/25/20 at 16:47; Status DC Sodium Chloride 1,000 ml @ 1,000 mls/hr Q1H PRN IV hypotension; Start 02/25/20 at 20:00; Stop 02/26/20 at 01:59; Status DC Albumin Human 200 ml @ 200 mls/hr 1X PRN PRN IV Hypotension; Start 02/25/20 at 20:00; Stop 02/26/20 at 01:59; Status DC Sodium Chloride (Normal Saline Flush) 10 ml 1X PRN PRN IV AP catheter pack; Start 02/25/20 at 20:00; Stop 02/26/20 at 19:59; Status DC Sodium Chloride (Normal Saline Flush) 10 ml 1X PRN PRN IV [employer] catheter pack; Start 02/25/20 at 20:00; Stop 02/26/20 at 19:59; Status DC Sodium Chloride 1,000 ml @ 400 mls/hr Q2H30M PRN IV PATENCY; Start 02/25/20 at 20:00; Stop 02/26/20 at 07:59; Status DC Info (PHARMACY MONITORING -- do not chart) 1 each PRN DAILY PRN MC SEE COMMENTS; Start 02/25/20 at 20:00; Stop 02/25/20 at 20:10; Status DC Info (PHARMACY MONITORING -- do not chart) 1 each PRN DAILY PRN MC SEE C OMMENTS; Start 02/25/20 at 20:00; Stop 02/26/20 at 10:07; Status DC Sodium Chloride 1,000 ml @ 1,000 mls/hr Q1H PRN IV hypotension; Start 02/26/20 at 10:00; Stop 02/26/20 at 15:59; Status DC Albumin Human 200 ml @ 200 mls/hr 1X PRN PRN IV Hypotension; Start 02/26/20 at 10:00; Stop 02/26/20 at 12:47; Status DC Sodium Chloride 1,000 ml @ 400 mls/hr Q2H30M PRN IV PATENCY; Start 02/26/20 at 10:00; Stop 02/26/20 at 21:59; Status DC Info (PHARMACY MONITORING -- do not chart) 1 each PRN DAILY PRN MC SEE COMMENTS; Start 02/26/20 at 10:00; Stop 02/26/20 at 10:11; Status DC Info (PHARMACY MONITORING -- do not chart) 1 each PRN DAILY PRN MC SEE COMMENTS; Start 02/26/20 at 10:00 Albumin Human 200 ml @ 200 mls/hr TID IV Last administered on 02/27/20at 07:58; Start 02/26/20 at 12:30; Stop 02/27/20 at 21:59 Furosemide (Lasix) 40 mg TID IVP Last administered on 02/27/20at 07:59; Start 02/26/20 at 12:30; Stop 02/27/20 at 21:01 Furosemide (Lasix) 40 mg BID IVP ; Start 02/28/20 at 09:00 Active Scripts Active Carafate (Sucralfate) 1 Gm Tablet 1 Tab PO QID 30 Days Protonix (Pantoprazole Sodium) 40 Mg Tablet.dr 40 Mg PO DAILYAC 30 Days Miralax (Polyethylene Glycol 3350) 17 Gm Powd.pack 1 Packet PO DAILY 2 Days dissolve in water Reported D3-50 (Cholecalciferol (Vitamin D3)) 50,000 Unit Capsule 1,000 Unit PO DAILY Propranolol Hcl 40 Mg Tablet 40 Mg PO BID Furosemide 40 Mg Tablet 40 Mg PO BID Eliquis (Apixaban) 5 Mg Tablet 5 Mg PO BID Humalog (Insulin Lispro) 100 Unit/1 Ml Cartridge 100 Unit SQ TIDACHC Lantus (Insulin Glargine,Hum.rec.anlog) 100 Unit/1 Ml Vial 35 Unit SQ HS Hydrocodone-Apap 7.5-325 (Hydrocodone Bit/Acetaminophen) 1 Tab Tablet 1 Tab PO PRN Q6HRS PRN Glimepiride 1 Mg Tablet 1 Mg PO DAILY Simvastatin 40 Mg Tablet 1 Tab PO QHS Fenofibrate 160 Mg Tablet 145 Mg PO HS Propranolol Hcl 40 Mg Tablet 1 Tab PO BID One-Daily Multi-Vitamin (Multivitamin) 1 Each Tablet 1 Tab PO DAILY 30 Days Vitals/I & O Vital Sign - Last 24 Hours 02/26/20 02/26/20 02/26/20 02/26/20 10:00 11:00 11:40 12:00 Pulse 94 93 Resp 22 22 B/P (MAP) 123/57 (79) 126/58 (80) Pulse Ox 90 91 90 O2 Delivery Ventilator Ventilator Ventilator Mechanical Ventilator 02/26/20 02/26/20 02/26/20 1/3/21 12:00 13:00 14:00 15:00 Temp 98.1 98.1 Pulse 92 92 89 89 Resp 22 B/P (MAP) 116/52 (73) 123/52 (75) 117/52 (73) 115/54 (74) Pulse Ox 93 90 90 91 O2 Delivery Ventilator Ventilator Ventilator Ventilator 02/26/20 02/26/20 02/26/20 02/26/20 16:00 16:00 16:08 17:00 Temp 98.1 98.1 Pulse 89 96 Resp B/P (MAP) 120/53 (75) 143/61 (88) Pulse Ox 91 91 91 O2 Delivery Mechanical Ventilator Ventilator Ventilator Ventilator 02/26/20 02/26/20 02/26/20 02/26/20 17:45 18:00 19:00 20:00 Pulse 96 84 Resp B/P (MAP) 141/55 (83) 119/54 (75) Pulse Ox 92 92 93 O2 Delivery Ventilator Ventilator Ventilator Mechanical Ventilator 02/26/20 02/26/20 02/26/20 02/26/20 20:00 20:44 21:00 21:26 Temp 100.2 100.2 Pulse 86 84 82 Resp B/P (MAP) 126/54 (78) 127/55 (79) 128/54 Pulse Ox 93 91 91 O2 Delivery Ventilator Ventilator Ventilator 02/26/20 02/26/20 02/26/20 02/27/20 22:00 23:00 23:35 00:00 Pulse 67 74 Resp B/P (MAP) 133/58 (83) 118/56 (76) Pulse Ox 90 90 91 O2 Delivery Ventilator Ventilator Ventilator Mechanical Ventilator 02/27/20 02/27/20 02/27/20 02/27/20 00:00 01:00 02:00 03:00 Temp 99.1 99.1 Pulse 75 74 74 77 Resp 22 22 B/P (MAP) 115/51 (72) 118/57 (77) 96/61 (73) 137/62 (87) Pulse Ox 92 91 92 93 O2 Delivery Ventilator Ventilator Ventilator Ventilator 02/27/20 02/27/20 02/27/20 02/27/20 04:00 04:00 05:00 05:16 Temp 98.5 98.5 Pulse 73 71 Resp 22 B/P (MAP) 128/63 (84) 131/63 (85) Pulse Ox 91 95 93 O2 Delivery Ventilator Mechanical Ventilator Ventilator Ventilator 02/27/20 02/27/20 02/27/20 02/27/20 06:00 07:00 07:30 08:00 Pulse 68 66 Resp 22 22 B/P (MAP) 140/69 (92) 117/61 (79) Pulse Ox 99 95 95 O2 Delivery Ventilator Ventilator Ventilator Mechanical Ventilator 02/27/20 02/27/20 02/27/20 08:00 08:00 09:00 Temp 98.4 98.4 Pulse 67 68 61 Resp 22 B/P (MAP) 117/61 133/64 (87) 123/59 (80) Pulse Ox 94 95 O2 Delivery Ventilator Ventilator Intake and Output 02/26/20 02/26/20 02/27/20 15:00 23:00 07:00 Intake Total 300 ml 3067 ml 1520.8 ml Output Total 530 ml 530 ml 680 ml Balance -230 ml 2537 ml 840.8 ml Justicifation of Admission Dx: Justifications for Admission: Justification of Admission Dx: Yes CHRISTINA BRADSHAW MD Feb 27, 2020 09:50
--- NOTE | 2020-02-27 10:33 | PDOC ---
Date of Service: DATE: 02/27/20 TIME: 10:30 Objective: Objective: No GI concerns per nurse. Vital Signs: Vital Signs Date Time Temp Pulse Resp B/P (MAP) Pulse Ox O2 Delivery O2 Flow Rate FiO2 02/27/20 09:00 61 22 123/59 (80) 95 Ventilator 02/27/20 08:00 98.4 98.4 Labs: Laboratory Tests Test 02/26/20 13:33 02/26/20 18:25 02/27/20 00:15 02/27/20 05:54 Glucose (Fingerstick) 242 mg/dL (70-99) 199 mg/dL (70-99) 192 mg/dL (70-99) 224 mg/dL (70-99) URINE CULTURE Final Final Imaging: CXR 02/26 Impression: 1. Decreased pulmonary edema and small bilateral layering pleural effusions. PE: GEN: intubated LUNGS: vent/clear HEART: RRR ABD: soft/large, rectal tube w/ brown stool, tube feeds NEURO/PSYCH: sedated A/P: Encephalopathy, resp failure Chronic TAN - stable - getting IV iron 3x weekly H/o PUD - no bleeding, remains on IV PPI Cholelihtiasis w/ distended GB and pericholecystic fluid - LFTs normal (last checked 02/22/20) COVID negative 02/21/20 -- Stable GI-jett, continue same. Justicifation of Admission Dx: Justifications for Admission: Justification of Admission Dx: Yes ANCA ROSENBAUM Feb 27, 2020 10:33
[2020-02-27] MEDS: MICAFUNGIN 100 MG in IV DEXTROSE 5% 100ML 100 ML IV SCH (10:49)
--- NOTE | 2020-02-27 11:23 | PDOC ---
PULMONARY PROGRESS NOTES DATE: 02/27/20 TIME: 11:22 Subjective On vent support 70%, PEEP 5 afebrile, no overnight concerns from nursing Vitals Vital Signs Date Time Temp Pulse Resp B/P (MAP) Pulse Ox O2 Delivery O2 Flow Rate FiO2 02/27/20 11:00 59 22 124/60 (81) 95 Ventilator 02/27/20 08:00 98.4 98.4 Comments intubated/sedated Lungs: Clear Cardiovascular: S1, S2 Abdomen: Other Extremities: Other (BLE edema ) Skin: Warm, Dry Labs Laboratory Tests Test 02/25/20 12:35 02/25/20 13:40 02/25/20 18:09 02/26/20 00:12 Glucose (Fingerstick) 282 mg/dL (70-99) 244 mg/dL (70-99) 314 mg/dL (70-99) Urine Collection Type Unknown Urine Color Yellow Urine Clarity Clear Urine pH 6.0 (<5.0-8.0) Urine Specific [place] 1.015 (1.000-1.030) Urine Protein Negative mg/dL (NEG-TRACE) Urine Glucose (UA) 100 mg/dL (NEG) Urine Ketones (Stick) Negative mg/dL (NEG) Urine Blood Small (NEG) Urine Nitrite Negative (NEG) Urine Bilirubin Negative (NEG) Urine Urobilinogen Dipstick 1.0 mg/dL (0.2 mg/dL) Urine Leukocyte Esterase Small (NEG) Urine RBC >40 /HPF (0-2) Urine WBC 1-4 /HPF (0-4) Urine Amorphous Sediment Present /HPF Urine Bacteria 0 /HPF (0-FEW) Test 02/26/20 05:50 02/26/20 05:55 02/26/20 07:40 02/26/20 13:33 White Blood Count 5.1 x10^3/uL (4.0-11.0) Red Blood Count 3.41 x10^6/uL (4.30-5.70) Hemoglobin 8.5 g/dL (13.0-17.5) Hematocrit 27.4 % (39.0-53.0) Mean Corpuscular Volume 80 fL (79-100) Mean Corpuscular Hemoglobin 25 pg (25-35) Mean Corpuscular Hemoglobin Concent 31 g/dL (31-37) Red Cell Distribution Width 17.7 % (11.5-14.5) Platelet Count 276 x10^3/uL (140-400) Neutrophils (%) (Auto) 75 % (31-73) Lymphocytes (%) (Auto) 11 % (24-48) Monocytes (%) (Auto) 9 % (0-9) Eosinophils (%) (Auto) 4 % (0-3) Basophils (%) (Auto) 1 % (0-3) Neutrophils # (Auto) 3.8 x10^3/uL (1.8-7.7) Lymphocytes # (Auto) 0.5 x10^3/uL (1.0-4.8) Monocytes # (Auto) 0.4 x10^3/uL (0.0-1.1) Eosinophils # (Auto) 0.2 x10^3/uL (0.0-0.7) Basophils # (Auto) 0.1 x10^3/uL (0.0-0.2) Sodium Level 142 mmol/L (136-145) Potassium Level 4.7 mmol/L (3.5-5.1) Chloride Level 103 mmol/L (98-107) Carbon Dioxide Level 33 mmol/L (21-32) Anion Gap 6 (6-14) Blood Urea Nitrogen 50 mg/dL (8-26) Creatinine 2.5 mg/dL (0.7-1.3) Estimated GFR (Cockcroft-Gault) 25.8 Glucose Level 290 mg/dL (70-99) Calcium Level 8.4 mg/dL (8.5-10.1) Phosphorus Level 5.2 mg/dL (2.6-4.7) Magnesium Level 2.2 mg/dL (1.8-2.4) Albumin 1.6 g/dL (3.4-5.0) Glucose (Fingerstick) 277 mg/dL (70-99) 242 mg/dL (70-99) O2 Saturation 88 % (92-99) Arterial Blood pH 7.34 (7.35-7.45) Arterial Blood pCO2 at Patient Temp 57 mmHg (35-46) Arterial Blood pO2 at Patient Temp 60 mmHg (65-108) Arterial Blood HCO3 30 mmol/L (21-28) Arterial Blood Base Excess 3 mmol/L (-3-3) FiO2 70% vent Test 02/26/20 18:25 1/3/21 18:35 02/27/20 00:15 02/27/20 05:50 Glucose (Fingerstick) 199 mg/dL (70-99) 192 mg/dL (70-99) Urine Random Creatinine 70.5 mg/dL (Not Establ.) Urine Random Total Protein 24.9 mg/dL (Not Establ.) Urine Protein/Creatinine Ratio 353 mg/g (0-200) Sodium Level 143 mmol/L (136-145) Potassium Level 4.7 mmol/L (3.5-5.1) Chloride Level 102 mmol/L (98-107) Carbon Dioxide Level 33 mmol/L (21-32) Anion Gap 8 (6-14) Blood Urea Nitrogen 57 mg/dL (8-26) Creatinine 2.9 mg/dL (0.7-1.3) Estimated GFR (Cockcroft-Gault) 21.7 Glucose Level 215 mg/dL (70-99) Calcium Level 8.5 mg/dL (8.5-10.1) Phosphorus Level 6.2 mg/dL (2.6-4.7) Magnesium Level 2.2 mg/dL (1.8-2.4) Albumin 2.0 g/dL (3.4-5.0) Test 02/27/20 05:54 02/27/20 07:30 Glucose (Fingerstick) 224 mg/dL (70-99) O2 Saturation 90 % (92-99) Arterial Blood pH 7.39 (7.35-7.45) Arterial Blood pCO2 at Patient Temp 53 mmHg (35-46) Arterial Blood pO2 at Patient Temp 62 mmHg (65-108) Arterial Blood HCO3 31 mmol/L (21-28) Arterial Blood Base Excess 6 mmol/L (-3-3) FiO2 70 Laboratory Tests Test 02/26/20 13:33 02/26/20 18:25 02/26/20 18:35 02/27/20 00:15 Glucose (Fingerstick) 242 mg/dL (70-99) 199 mg/dL (70-99) 192 mg/dL (70-99) Urine Random Creatinine 70.5 mg/dL (Not Establ.) Urine Random Total Protein 24.9 mg/dL (Not Establ.) Urine Protein/Creatinine Ratio 353 mg/g (0-200) Test 02/27/20 05:50 02/27/20 05:54 02/27/20 07:30 Sodium Level 143 mmol/L (136-145) Potassium Level 4.7 mmol/L (3.5-5.1) Chloride Level 102 mmol/L (98-107) Carbon Dioxide Level 33 mmol/L (21-32) Anion Gap 8 (6-14) Blood Urea Nitrogen 57 mg/dL (8-26) Creatinine 2.9 mg/dL (0.7-1.3) Estimated GFR (Cockcroft-Gault) 21.7 Glucose Level 215 mg/dL (70-99) Calcium Level 8.5 mg/dL (8.5-10.1) Phosphorus Level 6.2 mg/dL (2.6-4.7) Magnesium Level 2.2 mg/dL (1.8-2.4) Albumin 2.0 g/dL (3.4-5.0) Glucose (Fingerstick) 224 mg/dL (70-99) O2 Saturation 90 % (92-99) Arterial Blood pH 7.39 (7.35-7.45) Arterial Blood pCO2 at Patient Temp 53 mmHg (35-46) Arterial Blood pO2 at Patient Temp 62 mmHg (65-108) Arterial Blood HCO3 31 mmol/L (21-28) Arterial Blood Base Excess 6 mmol/L (-3-3) FiO2 70 Medications Active Scripts Medications Dose Route/Sig Max Daily Dose Days Date Category Dose Instructions D3-50 (Cholecalciferol (Vitamin D3)) 50,000 Unit Capsule 1,000 Unit PO DAILY 02/21/20 Reported Propranolol Hcl 40 Mg Tablet 40 Mg PO BID 02/21/20 Reported Furosemide 40 Mg Tablet 40 Mg PO BID 02/21/20 Reported Eliquis (Apixaban) 5 Mg Tablet 5 Mg PO BID 02/21/20 Reported Humalog (Insulin Lispro) 100 Unit/1 Ml Cartridge 100 Unit SQ TIDACHC 02/21/20 Reported Lantus (Insulin Glargine,Hum.rec.anlog) 100 Unit/1 Ml Vial 35 Unit SQ HS 02/21/20 Reported Hydrocodone-Apap 7.5-325 (Hydrocodone Bit/Acetaminophen) 1 Tab Tablet 1 Tab PO PRN Q6HRS PRN 02/21/20 Reported Glimepiride 1 Mg Tablet 1 Mg PO DAILY 02/21/20 Reported Carafate (Sucralfate) 1 Gm Tablet 1 Tab PO QID 30 11/11/19 Rx Protonix (Pantoprazole Sodium) 40 Mg Tablet.dr 40 Mg PO DAILYAC 30 11/11/19 Rx Miralax (Polyethylene Glycol 3350) 17 Gm Powd.pack 1 Packet PO DAILY 2 11/11/19 Rx dissolve in water Simvastatin 40 Mg Tablet 1 Tab PO QHS 11/06/19 Reported Fenofibrate 160 Mg Tablet 145 Mg PO HS 11/06/19 Reported Propranolol Hcl 40 Mg Tablet 1 Tab PO BID 11/06/19 Reported One-Daily Multi-Vitamin (Multivitamin) 1 Each Tablet 1 Tab PO DAILY 30 11/06/19 Reported Comments CXR 02/26 Impression: 1. Decreased pulmonary edema and small bilateral layering pleural effusions. Impression . IMPRESSION: 1. Acute on chronic hypoxemic hypercapnic respiratory failure, required intubation 2. Paroxysmal atrial fibrillation. 3. History of deep venous thrombosis, PE, status post IVC filter placement. 4. History of anemia with history of recent gastrointestinal bleed. 5. Hypertension. 6. Hyperlipidemia. 7. Acute on chronic kidney disease. 8. Acute exacerbation of chronic obstructive pulmonary disease. 9. Acute on chronic metabolic toxic, possible toxic encephalopathy. Plan . Continue current vent support currently on 70% and PEEP of 5 Follow CXR and ABG, no changes Follow neurology recommendations Follow nephrology recommendations--status post hemodialysis catheter placement on 02/24, holding hemodialysis Follow cardiology recommendations COVID-19 negative Continue empiric antibiotic per ID, Follow cultures NGTD on : Anastasia/Zyvox/zosyn Follow GI recs continue TF for nutritional support DVT/GI prophylaxis Critical care time 0900--0930 AM Discussed with RN and RT Spoke with Daughter Ashley, for clinical update, all questions answered to the best of my ability. CHRISTIE ALMARAZ MD Feb 27, 2020 11:23
--- NOTE | 2020-02-27 15:30 | NUR ---
SS following up with discharge planning. SS reviewed pt chart and discussed with pt RN. Pt is currently on the vent at 70%. COVID19 negative. Pt on IV Micafungin, IV Zyvox, and IV Zosyn. Not stable. SS will continue to follow for discharge planning.
[2020-02-27] MEDS: SIMVASTATIN 40 MG TABLET. PO SCH (20:42)
[2020-02-28] VITALS (22 sets, daily range): BP systolic 106–154; BP diastolic 50–67
[2020-02-28] MEDS: PIPERACILLIN/TAZOBACTAM 3.375 GM in IV NORMAL SALINE 50ML 50 ML IV SCH ×4 (00:12→17:16)
[2020-02-28] MEDS: INSULIN LISPRO 300 UNITS/3 ML VIAL. SQ SCH ×4 (00:13→17:27)
[2020-02-28] MEDS: PROPOFOL 100 ML IV PRN ×7 (01:16→22:24)
[2020-02-28] MEDS: fentaNYL HIGH DOSE PCA 55 ML IV PRN (04:04)
[2020-02-28 05:32] LABS: BASO # 0.1 x10^3/uL (0.0-0.2); BASO % 1 % (0-3); EOS # 0.2 x10^3/uL (0.0-0.7); EOS % 2 % (0-3); HEMATOCRIT 25.9 % (39.0-53.0); LYMPH # 0.8 x10^3/uL (1.0-4.8); LYMPH % 12 % (24-48); MEAN CORPUSCULAR HEMOGLOBIN 25 pg (25-35); MEAN CORPUSCULAR HGB CONC 31 g/dL (31-37); MEAN CORPUSCULAR VOLUME 80 fL (79-100); MONO # 0.7 x10^3/uL (0.0-1.1); MONO % 11 % (0-9); NEUT # 4.6 x10^3/uL (1.8-7.7); NEUT % 73 % (31-73); PLATELET COUNT 262 x10^3/uL (140-400); RED BLOOD COUNT 3.26 x10^6/uL (4.30-5.70); RED CELL DISTRIBUTION WIDTH 18.2 % (11.5-14.5); WHITE BLOOD COUNT 6.3 x10^3/uL (4.0-11.0)
[2020-02-28 05:46] LABS: ALBUMIN 2.3 g/dL (3.4-5.0); CALCIUM 9.1 mg/dL (8.5-10.1); CREATININE 2.7 mg/dL (0.7-1.3); GFR 23.6; MAGNESIUM 2.4 mg/dL (1.8-2.4); PHOSPHORUS 5.9 mg/dL (2.6-4.7); POTASSIUM 4.3 mmol/L (3.5-5.1)
[2020-02-28 05:49] LABS: ALBUMIN 2.4 g/dL (3.4-5.0); DIRECT BILIRUBIN 0.3 mg/dL (0.0-0.2); TOTAL BILIRUBIN 0.5 mg/dL (0.2-1.0); TOTAL PROTEIN 6.7 g/dL (6.4-8.2)
--- NOTE | 2020-02-28 07:25 | PDOC ---
[employer] PROGRESS NOTE Date of Service DOS: DATE: 02/28/20 TIME: 07:19 Chief Complaint Chief Complaint VTE Prophylaxis Ordered VTE Prophylaxis Devices: Yes VTE Pharmacological Prophylaxi: Yes Assessment/Plan Assessment/Plan impression 1. Acute hypoxic / severe hypercapnic respiratory failure, 2. Chronic obstructive pulmonary disease. 3. Type 2 diabetes mellitus with peripheral neuropathy. 4. Hypertension. 5. Hyperlipidemia. 6. atrial fibrillation 7. History of deep vein thrombosis and pulmonary emboli x 3 for which he was on Coumadin. has now an inferior vena cava filter. Placement of retrievable IVC filter 11/12 8. bilateral lower extremity //chronic venous stasis dermatitis 9. morbid obesity 10. PUI COVID 19 11. 4 mm non bleeding antral gastric ulcer and erosive gastritis (bx) 11/12 12. NATASHA 13, ISCHEMIC CVD CT HEAD 14. CODE STROKE IN ER 15. ACUTE METABOLIC ENCEPHALOPATHY 16, POSSIBLE ASPIRATION, PNEUMONIA, SHOCK 17. Distended gallbladder, pericholecystic fluid and gallstones. Findings are equivocal for acute cholecystitis. 18. Diffuse hepatic steatosis. 19. Temporary dialysis catheter inserted 02-25-20 Scrotal swelling. Yeast in groin [place] BLOOD CULTURE Final NO GROWTH AFTER 5 DAYS 02-26-20 plan icu bed pulm consult cardiology consult GI CONSULT NEPHROLOGY CONSULT Neurology consult ID CONSULT ECHO d/c meropenem Continue Zosyn. Add Zyvox and micafungin. remains full code 37 MIN CC TIME BLOOD CULTURE Final NO GROWTH AFTER 5 DAYS 02-26-20 History of Present Illness History of Present Illness 69 yr old male, transfer from [place] due to AMS, required vent support for respiratory failure BECAME HYPOXIC 0330, INTUBATED IN ER, WAS OBTUNDED, HAD ELEVATED D-DIMER BUN 32, CR 2.1 UDS NEG, PRO-BNP 5556 WAS CODE STROKE ON PRESENTATION DUE TO AMS RESIDENT OF [facility] , admitted by DR CASTANEDA HERE ON NOV 2019 D DIMER 1.82 BUT RENAL FX PROHIBITS CTA CHEST, DEFER TO PULM poor candidate for long-term anticoagulation. WAS outpatient referral for [facility] by cardiology 02/27/2020 Patient seen and evaluated in ICU. On ventilator, FiO2 100%, PEEP 5. Continue Lasix, Zosyn, and linezolid. Charts and labs reviewed. 02/28/2020 Patient seen in ICU. On ventilator, FiO2 90%, PEEP 5. Continue to diurese. Continue antibiotic treatment with Zosyn and linezolid discussed with RN. Vitals/I&O Vitals/I&O: Vital Signs Date Time Temp Pulse Resp B/P (MAP) Pulse Ox O2 Delivery O2 Flow Rate FiO2 02/28/20 06:00 81 22 154/67 (96) 90 Ventilator 02/28/20 04:00 97.8 97.8 I & O 02/27/20 02/27/20 02/28/20 15:00 23:00 07:00 Intake Total 300 ml 1773 ml 2480 ml Output Total 800 ml 650 ml 555 ml Balance -500 ml 1123 ml 1925 ml Physical Exam Physical Exam: GENERAL: Intubated, sedated HEENT: Normocephalic, atraumatic, anicteric. OGT/ETT present LUNGS: Clear anteriorly. HEART: S1, S2. ABDOMEN: Obese. Bowel sounds present, nondistended. GENITOURINARY: Scrotal swelling. Yeast in groin [place] in place. EXTREMITIES: Bilateral venous stasis changes present. Wounds present over both lower extremities, hyperkeratotic skin, no cyanosis, no clubbing. DERMATOLOGIC: Warm, dry. No generalized rash except for above. Lines right internal jugular vein in place. Temporary HDC present General: Other (Intubated.) Heart: Regular rate Lungs: Clear Abdomen: Normal bowel sounds Extremities: Other (1+ bilateral LE edema. Chronic bilateral LE venous stasis dermatitis ) Labs Labs: Laboratory Tests Test 02/27/20 07:30 02/27/20 12:02 02/27/20 17:53 02/28/20 00:10 O2 Saturation 90 % (92-99) Arterial Blood pH 7.39 (7.35-7.45) Arterial Blood pCO2 at Patient Temp 53 mmHg (35-46) Arterial Blood pO2 at Patient Temp 62 mmHg (65-108) Arterial Blood HCO3 31 mmol/L (21-28) Arterial Blood Base Excess 6 mmol/L (-3-3) FiO2 70 Glucose (Fingerstick) 232 mg/dL (70-99) 155 mg/dL (70-99) 166 mg/dL (70-99) Test 02/28/20 05:15 White Blood Count 6.3 x10^3/uL (4.0-11.0) Red Blood Count 3.26 x10^6/uL (4.30-5.70) Hemoglobin 8.0 g/dL (13.0-17.5) Hematocrit 25.9 % (39.0-53.0) Mean Corpuscular Volume 80 fL (79-100) Mean Corpuscular Hemoglobin 25 pg (25-35) Mean Corpuscular Hemoglobin Concent 31 g/dL (31-37) Red Cell Distribution Width 18.2 % (11.5-14.5) Platelet Count 262 x10^3/uL (140-400) Neutrophils (%) (Auto) 73 % (31-73) Lymphocytes (%) (Auto) 12 % (24-48) Monocytes (%) (Auto) 11 % (0-9) Eosinophils (%) (Auto) 2 % (0-3) Basophils (%) (Auto) 1 % (0-3) Neutrophils # (Auto) 4.6 x10^3/uL (1.8-7.7) Lymphocytes # (Auto) 0.8 x10^3/uL (1.0-4.8) Monocytes # (Auto) 0.7 x10^3/uL (0.0-1.1) Eosinophils # (Auto) 0.2 x10^3/uL (0.0-0.7) Basophils # (Auto) 0.1 x10^3/uL (0.0-0.2) Sodium Level 140 mmol/L (136-145) Potassium Level 4.3 mmol/L (3.5-5.1) Chloride Level 101 mmol/L (98-107) Carbon Dioxide Level 32 mmol/L (21-32) Anion Gap 7 (6-14) Blood Urea Nitrogen 57 mg/dL (8-26) Creatinine 2.7 mg/dL (0.7-1.3) Estimated GFR (Cockcroft-Gault) 23.6 Glucose Level 188 mg/dL (70-99) Glucose (Fingerstick) 194 mg/dL (70-99) Calcium Level 9.1 mg/dL (8.5-10.1) Phosphorus Level 5.9 mg/dL (2.6-4.7) Magnesium Level 2.4 mg/dL (1.8-2.4) Total Bilirubin 0.5 mg/dL (0.2-1.0) Direct Bilirubin 0.3 mg/dL (0.0-0.2) Aspartate Amino Transf (AST/SGOT) 28 U/L (15-37) Alanine Aminotransferase (ALT/SGPT) 11 U/L (16-63) Alkaline Phosphatase 69 U/L (46-116) Total Protein 6.7 g/dL (6.4-8.2) Albumin 2.4 g/dL (3.4-5.0) Procalcitonin 0.60 ng/mL (0.00-0.10) Comment Review of Relevant I have reviewed the following items megan (where applicable) has been applied. Medications: Current Medications Medications (Trade) Dose Ordered Sig/Dulce Route PRN Reason Start Time Stop Time Status Last Admin Dose Admin Iron Sucrose 200 mg/Sodium Chloride 110 ml @ 55 mls/hr 3X/WEEK IV 02/27/20 09:00 03/07/20 10:59 02/27/20 09:09 Justifications for Admission Other Justification resp failure BARB OCHOA MD Feb 28, 2020 07:24
[2020-02-28 07:32] LABS: BASE EXCESS ABG 5 mmol/L (-3-3); HCO3 ABG 32 mmol/L (21-28); PCO2 ABG 56 mmHg (35-46); PO2 ABG 54 mmHg (65-108); SAT O2 ABG 84 % (92-99)
[2020-02-28] MEDS: PANTOPRAZOLE IV PUSH 40 MG VIAL. IVP SCH (07:42)
[2020-02-28] MEDS: FUROSEMIDE 40 MG/4 ML VIAL. IVP SCH ×2 (07:42→20:45)
[2020-02-28] MEDS: PROPRANOLOL 40 MG TABLET. PO SCH ×2 (07:43→20:45)
[2020-02-28] MEDS: FENOFIBRATE,MICRONIZED 134 MG CAPSULE PO SCH (07:43)
[2020-02-28] MEDS: MULTIVITAMINS,THERAPEUTIC 5 ML ORAL LIQUID. PEG SCH (07:43)
[2020-02-28] MEDS: CHOLECALCIFEROL (VITAMIN D3) 1,000 UNIT TABLET PO SCH (07:43)
[2020-02-28] MEDS: ELECTROLYTE (ICU) PROTOCOL. MC SCH (07:45)
[2020-02-28 07:46] LABS: FIO2 ABG 90/VENT
--- NOTE | 2020-02-28 07:57 | PDOC ---
Infectious Disease Note Subjective Subjective Patient remains intubated/sedated ROS ROS no n/v/d/ Vital Sign Vital Signs Vital Signs Date Time Temp Pulse Resp B/P (MAP) Pulse Ox O2 Delivery O2 Flow Rate FiO2 02/28/20 07:43 83 144/58 02/28/20 07:14 91 Ventilator 02/28/20 06:00 22 02/28/20 04:00 97.8 97.8 Physical Exam PHYSICAL EXAM GENERAL: Intubated, sedated HEENT: Normocephalic, atraumatic, anicteric. OGT/ETT present LUNGS: Clear anteriorly. HEART: S1, S2. ABDOMEN: Obese. Bowel sounds present, nondistended. GENITOURINARY: Scrotal swelling. Yeast in groin [place] in place. EXTREMITIES: Bilateral venous stasis changes present. Wounds present over both lower extremities, hyperkeratotic skin, no cyanosis, no clubbing. DERMATOLOGIC: Warm, dry. No generalized rash except for above. Lines right internal jugular vein in place. Temporary HDC present Labs Lab Laboratory Tests Test 02/27/20 12:02 02/27/20 17:53 02/28/20 00:10 02/28/20 05:15 Glucose (Fingerstick) 232 mg/dL (70-99) 155 mg/dL (70-99) 166 mg/dL (70-99) 194 mg/dL (70-99) White Blood Count 6.3 x10^3/uL (4.0-11.0) Red Blood Count 3.26 x10^6/uL (4.30-5.70) Hemoglobin 8.0 g/dL (13.0-17.5) Hematocrit 25.9 % (39.0-53.0) Mean Corpuscular Volume 80 fL (79-100) Mean Corpuscular Hemoglobin 25 pg (25-35) Mean Corpuscular Hemoglobin Concent 31 g/dL (31-37) Red Cell Distribution Width 18.2 % (11.5-14.5) Platelet Count 262 x10^3/uL (140-400) Neutrophils (%) (Auto) 73 % (31-73) Lymphocytes (%) (Auto) 12 % (24-48) Monocytes (%) (Auto) 11 % (0-9) Eosinophils (%) (Auto) 2 % (0-3) Basophils (%) (Auto) 1 % (0-3) Neutrophils # (Auto) 4.6 x10^3/uL (1.8-7.7) Lymphocytes # (Auto) 0.8 x10^3/uL (1.0-4.8) Monocytes # (Auto) 0.7 x10^3/uL (0.0-1.1) Eosinophils # (Auto) 0.2 x10^3/uL (0.0-0.7) Basophils # (Auto) 0.1 x10^3/uL (0.0-0.2) Sodium Level 140 mmol/L (136-145) Potassium Level 4.3 mmol/L (3.5-5.1) Chloride Level 101 mmol/L (98-107) Carbon Dioxide Level 32 mmol/L (21-32) Anion Gap 7 (6-14) Blood Urea Nitrogen 57 mg/dL (8-26) Creatinine 2.7 mg/dL (0.7-1.3) Estimated GFR (Cockcroft-Gault) 23.6 Glucose Level 188 mg/dL (70-99) Calcium Level 9.1 mg/dL (8.5-10.1) Phosphorus Level 5.9 mg/dL (2.6-4.7) Magnesium Level 2.4 mg/dL (1.8-2.4) Total Bilirubin 0.5 mg/dL (0.2-1.0) Direct Bilirubin 0.3 mg/dL (0.0-0.2) Aspartate Amino Transf (AST/SGOT) 28 U/L (15-37) Alanine Aminotransferase (ALT/SGPT) 11 U/L (16-63) Alkaline Phosphatase 69 U/L (46-116) Total Protein 6.7 g/dL (6.4-8.2) Albumin 2.4 g/dL (3.4-5.0) Procalcitonin 0.60 ng/mL (0.00-0.10) Test 02/28/20 07:00 O2 Saturation 84 % (92-99) Arterial Blood pH 7.37 (7.35-7.45) Arterial Blood pCO2 at Patient Temp 56 mmHg (35-46) Arterial Blood pO2 at Patient Temp 54 mmHg (65-108) Arterial Blood HCO3 32 mmol/L (21-28) Arterial Blood Base Excess 5 mmol/L (-3-3) FiO2 90/vent Micro Microbiology 02/21/20 Blood Culture - Final, Complete NO GROWTH AFTER 5 DAYS Objective Assessment Febrile illness resolved Acute hypoxic respiratory failure status post intubation Encephalopathy likely metabolic NATASHA with underlying CKD Diabetes mellitus Chronic venous stasis with bilateral chronic nonhealing lower extremity wounds with mild superimposed cellulitis Yeast in groin Elevated ammonia , cholelithiasis with distended gb on ct abdomen. History of atrial fibrillation. History of pulmonary embolism and deep venous thrombosis, status post IVC filter. Rapid COVID negative, 02/20. 10. Chronic venous stasis dermatitis, bilateral lower extremities with mild superimposed bilateral lower extremity cellulitis. 11. Congestive heart failure. 12. senior care resident. 13. Elevated D-dimer. 14. Anemia. RECOMMENDATIONS: 1. Discontinue meropenem as the patient does not need 2-beta lactams 2. Continue Zosyn. 3. Add Zyvox and micafungin. 4. Follow up labs and cultures. 5. Continue local wound care. 6. Continue supportive care. 7. GI, Pulmonary, Neurology and Renal team consulte Plan Plan of Care Continue Zosyn Zyvox and micafungin Follow-up cultures Continue wound care Continue supportive care Monitor labs Discussed with KENISHA FARRIS MD Feb 28, 2020 07:57
--- NOTE | 2020-02-28 08:41 | PDOC ---
PULMONARY PROGRESS NOTES DATE: 02/28/20 TIME: 08:36 Subjective On vent support up to 100%FIO2,, PEEP 5 afebrile, AC mode Vitals Vital Signs Date Time Temp Pulse Resp B/P (MAP) Pulse Ox O2 Delivery O2 Flow Rate FiO2 02/28/20 08:00 Mechanical Ventilator 02/28/20 07:43 83 144/58 02/28/20 07:14 91 02/28/20 06:00 22 02/28/20 04:00 97.8 97.8 Comments intubated/sedated Lungs: Clear Cardiovascular: S1, S2 Abdomen: Other (obese) Extremities: Other (BLE edema ) Skin: Warm, Dry Labs Laboratory Tests Test 02/26/20 13:33 02/26/20 18:25 02/26/20 18:35 02/27/20 00:15 Glucose (Fingerstick) 242 mg/dL (70-99) 199 mg/dL (70-99) 192 mg/dL (70-99) Urine Random Creatinine 70.5 mg/dL (Not Establ.) Urine Random Total Protein 24.9 mg/dL (Not Establ.) Urine Protein/Creatinine Ratio 353 mg/g (0-200) Test 02/27/20 05:50 02/27/20 05:54 02/27/20 07:30 02/27/20 12:02 Sodium Level 143 mmol/L (136-145) Potassium Level 4.7 mmol/L (3.5-5.1) Chloride Level 102 mmol/L (98-107) Carbon Dioxide Level 33 mmol/L (21-32) Anion Gap 8 (6-14) Blood Urea Nitrogen 57 mg/dL (8-26) Creatinine 2.9 mg/dL (0.7-1.3) Estimated GFR (Cockcroft-Gault) 21.7 Glucose Level 215 mg/dL (70-99) Calcium Level 8.5 mg/dL (8.5-10.1) Phosphorus Level 6.2 mg/dL (2.6-4.7) Magnesium Level 2.2 mg/dL (1.8-2.4) Albumin 2.0 g/dL (3.4-5.0) Glucose (Fingerstick) 224 mg/dL (70-99) 232 mg/dL (70-99) O2 Saturation 90 % (92-99) Arterial Blood pH 7.39 (7.35-7.45) Arterial Blood pCO2 at Patient Temp 53 mmHg (35-46) Arterial Blood pO2 at Patient Temp 62 mmHg (65-108) Arterial Blood HCO3 31 mmol/L (21-28) Arterial Blood Base Excess 6 mmol/L (-3-3) FiO2 70 Test 02/27/20 17:53 02/28/20 00:10 02/28/20 05:15 02/28/20 07:00 Glucose (Fingerstick) 155 mg/dL (70-99) 166 mg/dL (70-99) 194 mg/dL (70-99) White Blood Count 6.3 x10^3/uL (4.0-11.0) Red Blood Count 3.26 x10^6/uL (4.30-5.70) Hemoglobin 8.0 g/dL (13.0-17.5) Hematocrit 25.9 % (39.0-53.0) Mean Corpuscular Volume 80 fL (79-100) Mean Corpuscular Hemoglobin 25 pg (25-35) Mean Corpuscular Hemoglobin Concent 31 g/dL (31-37) Red Cell Distribution Width 18.2 % (11.5-14.5) Platelet Count 262 x10^3/uL (140-400) Neutrophils (%) (Auto) 73 % (31-73) Lymphocytes (%) (Auto) 12 % (24-48) Monocytes (%) (Auto) 11 % (0-9) Eosinophils (%) (Auto) 2 % (0-3) Basophils (%) (Auto) 1 % (0-3) Neutrophils # (Auto) 4.6 x10^3/uL (1.8-7.7) Lymphocytes # (Auto) 0.8 x10^3/uL (1.0-4.8) Monocytes # (Auto) 0.7 x10^3/uL (0.0-1.1) Eosinophils # (Auto) 0.2 x10^3/uL (0.0-0.7) Basophils # (Auto) 0.1 x10^3/uL (0.0-0.2) Sodium Level 140 mmol/L (136-145) Potassium Level 4.3 mmol/L (3.5-5.1) Chloride Level 101 mmol/L (98-107) Carbon Dioxide Level 32 mmol/L (21-32) Anion Gap 7 (6-14) Blood Urea Nitrogen 57 mg/dL (8-26) Creatinine 2.7 mg/dL (0.7-1.3) Estimated GFR (Cockcroft-Gault) 23.6 Glucose Level 188 mg/dL (70-99) Calcium Level 9.1 mg/dL (8.5-10.1) Phosphorus Level 5.9 mg/dL (2.6-4.7) Magnesium Level 2.4 mg/dL (1.8-2.4) Total Bilirubin 0.5 mg/dL (0.2-1.0) Direct Bilirubin 0.3 mg/dL (0.0-0.2) Aspartate Amino Transf (AST/SGOT) 28 U/L (15-37) Alanine Aminotransferase (ALT/SGPT) 11 U/L (16-63) Alkaline Phosphatase 69 U/L (46-116) Total Protein 6.7 g/dL (6.4-8.2) Albumin 2.4 g/dL (3.4-5.0) Procalcitonin 0.60 ng/mL (0.00-0.10) O2 Saturation 84 % (92-99) Arterial Blood pH 7.37 (7.35-7.45) Arterial Blood pCO2 at Patient Temp 56 mmHg (35-46) Arterial Blood pO2 at Patient Temp 54 mmHg (65-108) Arterial Blood HCO3 32 mmol/L (21-28) Arterial Blood Base Excess 5 mmol/L (-3-3) FiO2 90/vent Laboratory Tests Test 02/27/20 12:02 02/27/20 17:53 02/28/20 00:10 02/28/20 05:15 Glucose (Fingerstick) 232 mg/dL (70-99) 155 mg/dL (70-99) 166 mg/dL (70-99) 194 mg/dL (70-99) White Blood Count 6.3 x10^3/uL (4.0-11.0) Red Blood Count 3.26 x10^6/uL (4.30-5.70) Hemoglobin 8.0 g/dL (13.0-17.5) Hematocrit 25.9 % (39.0-53.0) Mean Corpuscular Volume 80 fL (79-100) Mean Corpuscular Hemoglobin 25 pg (25-35) Mean Corpuscular Hemoglobin Concent 31 g/dL (31-37) Red Cell Distribution Width 18.2 % (11.5-14.5) Platelet Count 262 x10^3/uL (140-400) Neutrophils (%) (Auto) 73 % (31-73) Lymphocytes (%) (Auto) 12 % (24-48) Monocytes (%) (Auto) 11 % (0-9) Eosinophils (%) (Auto) 2 % (0-3) Basophils (%) (Auto) 1 % (0-3) Neutrophils # (Auto) 4.6 x10^3/uL (1.8-7.7) Lymphocytes # (Auto) 0.8 x10^3/uL (1.0-4.8) Monocytes # (Auto) 0.7 x10^3/uL (0.0-1.1) Eosinophils # (Auto) 0.2 x10^3/uL (0.0-0.7) Basophils # (Auto) 0.1 x10^3/uL (0.0-0.2) Sodium Level 140 mmol/L (136-145) Potassium Level 4.3 mmol/L (3.5-5.1) Chloride Level 101 mmol/L (98-107) Carbon Dioxide Level 32 mmol/L (21-32) Anion Gap 7 (6-14) Blood Urea Nitrogen 57 mg/dL (8-26) Creatinine 2.7 mg/dL (0.7-1.3) Estimated GFR (Cockcroft-Gault) 23.6 Glucose Level 188 mg/dL (70-99) Calcium Level 9.1 mg/dL (8.5-10.1) Phosphorus Level 5.9 mg/dL (2.6-4.7) Magnesium Level 2.4 mg/dL (1.8-2.4) Total Bilirubin 0.5 mg/dL (0.2-1.0) Direct Bilirubin 0.3 mg/dL (0.0-0.2) Aspartate Amino Transf (AST/SGOT) 28 U/L (15-37) Alanine Aminotransferase (ALT/SGPT) 11 U/L (16-63) Alkaline Phosphatase 69 U/L (46-116) Total Protein 6.7 g/dL (6.4-8.2) Albumin 2.4 g/dL (3.4-5.0) Procalcitonin 0.60 ng/mL (0.00-0.10) Test 02/28/20 07:00 O2 Saturation 84 % (92-99) Arterial Blood pH 7.37 (7.35-7.45) Arterial Blood pCO2 at Patient Temp 56 mmHg (35-46) Arterial Blood pO2 at Patient Temp 54 mmHg (65-108) Arterial Blood HCO3 32 mmol/L (21-28) Arterial Blood Base Excess 5 mmol/L (-3-3) FiO2 90/vent Medications Active Scripts Medications Dose Route/Sig Max Daily Dose Days Date Category Dose Instructions D3-50 (Cholecalciferol (Vitamin D3)) 50,000 Unit Capsule 1,000 Unit PO DAILY 02/21/20 Reported Propranolol Hcl 40 Mg Tablet 40 Mg PO BID 02/21/20 Reported Furosemide 40 Mg Tablet 40 Mg PO BID 02/21/20 Reported Eliquis (Apixaban) 5 Mg Tablet 5 Mg PO BID 02/21/20 Reported Humalog (Insulin Lispro) 100 Unit/1 Ml Cartridge 100 Unit SQ TIDACHC 02/21/20 Reported Lantus (Insulin Glargine,Hum.rec.anlog) 100 Unit/1 Ml Vial 35 Unit SQ HS 02/21/20 Reported Hydrocodone-Apap 7.5-325 (Hydrocodone Bit/Acetaminophen) 1 Tab Tablet 1 Tab PO PRN Q6HRS PRN 02/21/20 Reported Glimepiride 1 Mg Tablet 1 Mg PO DAILY 02/21/20 Reported Carafate (Sucralfate) 1 Gm Tablet 1 Tab PO QID 30 11/11/19 Rx Protonix (Pantoprazole Sodium) 40 Mg Tablet.dr 40 Mg PO DAILYAC 30 11/11/19 Rx Miralax (Polyethylene Glycol 3350) 17 Gm Powd.pack 1 Packet PO DAILY 2 11/11/19 Rx dissolve in water Simvastatin 40 Mg Tablet 1 Tab PO QHS 11/06/19 Reported Fenofibrate 160 Mg Tablet 145 Mg PO HS 11/06/19 Reported Propranolol Hcl 40 Mg Tablet 1 Tab PO BID 11/06/19 Reported One-Daily Multi-Vitamin (Multivitamin) 1 Each Tablet 1 Tab PO DAILY 30 11/06/19 Reported Comments CXR 02/26 Impression: 1. Decreased pulmonary edema and small bilateral layering pleural effusions. Impression . IMPRESSION: 1. Acute on chronic hypoxemic hypercapnic respiratory failure, required intubation , worsening hypoxia due to persistent CHF 2. Paroxysmal atrial fibrillation. 3. History of deep venous thrombosis, PE, status post IVC filter placement.not on full AC due to GI bleed 4. History of anemia with history of recent gastrointestinal bleed. 5. Hypertension. 6. Hyperlipidemia. 7. Acute on chronic kidney disease. 8. Acute exacerbation of chronic obstructive pulmonary disease. 9. Acute on chronic metabolic toxic, possible toxic encephalopathy. Plan . Continue current vent support currently on 100% ,Increase PEEP to 7 Follow CXR and ABG, Follow neurology recommendations Follow nephrology recommendations--status post hemodialysis catheter placement on 02/24, holding hemodialysis, will need one to correct hypoxia Follow cardiology recommendations/ grade II DD COVID-19 negative Continue empiric antibiotic per ID, Follow cultures NGTD on : Anastasia/Zyvox/zosyn Follow GI recs continue TF for nutritional support DVT/GI prophylaxis Critical care time 0800--0830 AM Discussed with RN and RT MÓNICA LUCIO MD Feb 28, 2020 08:41
--- NOTE | 2020-02-28 09:35 | PDOC ---
DATE OF SERVICE DATE: 02/28/20 TIME: 09:34 SUBJECTIVE ROS remains intubated OBJECTIVE Vital Signs Vital Signs Date Time Temp Pulse Resp B/P (MAP) Pulse Ox O2 Delivery O2 Flow Rate FiO2 02/28/20 09:00 71 22 123/59 (80) 94 Ventilator 02/28/20 07:00 99.7 99.7 I & 0 Intake and Output 02/28/20 07:00 Intake Total 4553 ml Output Total 2005 ml Balance 2548 ml Intake IV Total 2407 ml Tube Feeding 1846 ml Other 300 ml Output Urine Total 1905 ml Stool Total 100 ml Gastric Drainage Total 0 ml PHYSICAL EXAM Physical Exam GENERAL: Intubated, sedated HEENT: anicteric. OGT/ETT present LUNGS: Clear anteriorly. HEART: S1, S2. ABDOMEN: Obese. Bowel sounds present, nondistended. : Scrotal swelling. Yeast in groin, [place] in place. EXTREMITIES: Bilateral venous stasis changes present. Wounds present over both lower extremities, hyperkeratotic skin, no cyanosis, no clubbing. DERM Warm, dry. No generalized rash except for above. Temporary HDC + DIAGNOSIS/ASSESSMENT Assessment & Plan NATASAH - worsening renal function 02/23 , Improving ,non Oliguric, Adequate UOP , E-Lytes stable , Temp HDC was placed over the weekend in anticipation of dialysis , Currently no emergent indication ..Supportive care, strict I/O, monitor Lasix decreased from TID to BID on on 02/26 , recommend prn extra dosing or switch to Lasix gtt if 2/2 Pulm congestion , Cxr scheduled for tomorrow per Pulm CKD stage 4 04/26 - Cr 2.63 with eGFR 24 in May 2017, used to follow with Dr. Julio, Presumed DM/ HTNsive Recently labs Cr 2.1 -2.2 , UA unremarkable, Rt Kidney reported normal on Abd US Proteinuria- Low grade Pr/Cr < 500 Hx of NATASHA on CKD-in Oct 2019 , 2/2 GI bleed ; in 2017 . Past vazquez no significant proteinuria Acute Anemia in Oct 2019 - s/p EGD with PUD . s/p PRBC , FFP's in Oct 2019 . Currently on IV Fe DM II- per primary HTN-- stable Acute on chronic diastolic CHF; Echo 03/13 with preserved LV systolic function . S/p IV Bumex at [facility] PAFIB; Was in AFIB with controlled rate per EKG at [facility]. Presently SR Hx DVT/PE. S/p IVC filter Morbid obesity Anasarca on IV Lasix and IV albumin started over this weekend , decrease dose as above ,Hypoalbuminemia, Obesity and pulmonary hypertension may be contributing Diffuse hepatic steatosis : defered to Primary team/ GI. COMMENT/RELEVANT DATA Meds Current Medications Medications (Trade) Dose Ordered Sig/Dulce Start Time Stop Time Status Last Admin Dose Admin Albumin Human 200 ml @ 200 mls/hr TID 02/26/20 12:30 02/27/20 21:59 DC 02/27/20 20:44 200 MLS/HR Apixaban (Eliquis) 5 mg BID 02/21/20 21:30 02/22/20 09:28 DC 02/22/20 08:46 5 MG Bisacodyl (Dulcolax Supp) 10 mg PRN DAILY PRN 02/21/20 12:15 Darbepoetin Jake (ARANESP for DIALYSIS PTS) 60 mcg WEEKLYHS 02/25/20 21:00 02/26/20 07:45 60 MCG Dextrose (Dextrose 50%-Water Syringe) 12.5 gm PRN Q15MIN PRN 02/23/20 08:00 Famotidine (Pepcid Vial) 20 mg BID 02/21/20 13:00 02/21/20 12:53 DC Fenofibrate (Lofibra) 134 mg DAILY 02/22/20 09:00 02/28/20 07:43 134 MG Fentanyl Citrate 55 ml @ 0 mls/hr CONT PRN 02/21/20 11:00 02/28/20 04:04 1.5 MLS/HR Fentanyl Citrate (Fentanyl 2ml Vial) 50 mcg PRN Q1HR PRN 02/21/20 06:45 Furosemide (Lasix) 40 mg BID 02/28/20 09:00 02/28/20 07:42 40 MG Influenza Virus Vaccine Quadrival (Fluzone Quad Syringe) 0.5 ml ONCE ONCE 02/22/20 09:00 02/22/20 09:01 DC Info (Anti-Coagulation Monitoring By Pharmacy) 1 each PRN DAILY PRN 02/22/20 08:15 Info (FLU VACCINE SCREEN per RX) 1 each 1X ONCE 02/22/20 00:00 02/22/20 00:01 UNV Info (Icu Electrolyte Protocol) 1 ea DAILY 02/22/20 09:00 02/28/20 07:45 1 EA Info (PHARMACY MONITORING -- do not chart) 1 each PRN DAILY PRN 02/26/20 10:00 Insulin Human Lispro (HumaLOG) 0-5 UNITS Q6HRS 02/23/20 12:00 02/28/20 05:46 2 UNITS Iron Sucrose 200 mg/Sodium Chloride 110 ml @ 55 mls/hr 3X/WEEK 02/27/20 09:00 03/07/20 10:59 02/27/20 09:09 55 MLS/HR Lidocaine HCl (Buffered Lidocaine 1%) 6 ml 1X ONCE 02/25/20 16:45 02/25/20 16:47 DC 02/25/20 16:50 4 ML Linezolid/Dextrose 300 ml @ 300 mls/hr Q12HR 02/22/20 11:30 02/22/20 11:20 DC Magnesium Sulfate 50 ml @ 25 mls/hr PRN DAILY PRN 02/24/20 08:15 Meropenem 500 mg/ Sodium Chloride 50 ml @ 100 mls/hr Q8HRS 02/21/20 14:00 02/22/20 08:19 DC 02/22/20 05:38 100 MLS/HR Micafungin Sodium 100 mg/Dextrose 100 ml @ 100 mls/hr Q24H 02/22/20 12:00 02/27/20 10:49 100 MLS/HR Midazolam HCl 100 ml @ 0 mls/hr CONT PRN 02/21/20 06:45 02/24/20 11:18 DC 02/23/20 21:56 8 MLS/HR Morphine Sulfate (Morphine Sulfate) 4 mg PRN Q1HR PRN 02/21/20 06:45 02/23/20 06:20 DC Multivitamins (Thera M Plus) 1 tab DAILY 02/22/20 09:00 02/22/20 08:44 DC Multivitamins/ Minerals Therapeutic (Centrum Multivit-Mineral Liq) 5 ml DAILY 02/22/20 09:00 02/28/20 07:43 5 ML Ondansetron HCl (Zofran) 4 mg PRN Q6HRS PRN 02/21/20 12:15 Pantoprazole Sodium (PROTONIX VIAL for IV PUSH) 40 mg DAILY 02/22/20 09:00 02/28/20 07:42 40 MG Pantoprazole Sodium (Protonix) 40 mg DAILYAC 02/22/20 07:30 02/21/20 22:27 DC Piperacillin Sod/ Tazobactam Sod (Zosyn Per Pharmacy) 1 each PRN DAILY PRN 02/21/20 12:15 Piperacillin Sod/ Tazobactam Sod 3.375 gm/Sodium Chloride 50 ml @ 100 mls/hr Q6HRS 02/21/20 18:00 02/28/20 05:46 100 MLS/HR Potassium Chloride/Water 100 ml @ 100 mls/hr Q1H 02/23/20 08:00 02/23/20 09:59 DC 02/23/20 09:18 100 MLS/HR Propofol 100 ml @ 0 mls/hr CONT PRN 02/21/20 06:45 02/28/20 07:41 28.4 MLS/HR Propranolol HCl (Inderal) 40 mg BID 02/21/20 21:30 02/28/20 07:43 40 MG Simvastatin (Zocor) 40 mg QHS 02/21/20 21:00 02/27/20 20:42 40 MG Sodium Chloride 1,000 ml @ 400 mls/hr Q2H30M PRN 02/26/20 10:00 02/26/20 21:59 DC Sodium Chloride (Normal Saline Flush) 10 ml 1X PRN PRN 02/25/20 20:00 02/26/20 19:59 DC Sucralfate (Carafate) 1 gm QID 02/21/20 21:30 02/21/20 22:23 DC Vitamin D (Vitamin D3) 1,000 unit DAILY 02/22/20 09:00 02/28/20 07:43 1,000 UNIT Lab Laboratory Tests Test 02/27/20 12:02 02/27/20 17:53 02/28/20 00:10 02/28/20 05:15 Glucose (Fingerstick) 232 mg/dL (70-99) 155 mg/dL (70-99) 166 mg/dL (70-99) 194 mg/dL (70-99) White Blood Count 6.3 x10^3/uL (4.0-11.0) Red Blood Count 3.26 x10^6/uL (4.30-5.70) Hemoglobin 8.0 g/dL (13.0-17.5) Hematocrit 25.9 % (39.0-53.0) Mean Corpuscular Volume 80 fL (79-100) Mean Corpuscular Hemoglobin 25 pg (25-35) Mean Corpuscular Hemoglobin Concent 31 g/dL (31-37) Red Cell Distribution Width 18.2 % (11.5-14.5) Platelet Count 262 x10^3/uL (140-400) Neutrophils (%) (Auto) 73 % (31-73) Lymphocytes (%) (Auto) 12 % (24-48) Monocytes (%) (Auto) 11 % (0-9) Eosinophils (%) (Auto) 2 % (0-3) Basophils (%) (Auto) 1 % (0-3) Neutrophils # (Auto) 4.6 x10^3/uL (1.8-7.7) Lymphocytes # (Auto) 0.8 x10^3/uL (1.0-4.8) Monocytes # (Auto) 0.7 x10^3/uL (0.0-1.1) Eosinophils # (Auto) 0.2 x10^3/uL (0.0-0.7) Basophils # (Auto) 0.1 x10^3/uL (0.0-0.2) Sodium Level 140 mmol/L (136-145) Potassium Level 4.3 mmol/L (3.5-5.1) Chloride Level 101 mmol/L (98-107) Carbon Dioxide Level 32 mmol/L (21-32) Anion Gap 7 (6-14) Blood Urea Nitrogen 57 mg/dL (8-26) Creatinine 2.7 mg/dL (0.7-1.3) Estimated GFR (Cockcroft-Gault) 23.6 Glucose Level 188 mg/dL (70-99) Calcium Level 9.1 mg/dL (8.5-10.1) Phosphorus Level 5.9 mg/dL (2.6-4.7) Magnesium Level 2.4 mg/dL (1.8-2.4) Total Bilirubin 0.5 mg/dL (0.2-1.0) Direct Bilirubin 0.3 mg/dL (0.0-0.2) Aspartate Amino Transf (AST/SGOT) 28 U/L (15-37) Alanine Aminotransferase (ALT/SGPT) 11 U/L (16-63) Alkaline Phosphatase 69 U/L (46-116) Total Protein 6.7 g/dL (6.4-8.2) Albumin 2.4 g/dL (3.4-5.0) Procalcitonin 0.60 ng/mL (0.00-0.10) Test 02/28/20 07:00 O2 Saturation 84 % (92-99) Arterial Blood pH 7.37 (7.35-7.45) Arterial Blood pCO2 at Patient Temp 56 mmHg (35-46) Arterial Blood pO2 at Patient Temp 54 mmHg (65-108) Arterial Blood HCO3 32 mmol/L (21-28) Arterial Blood Base Excess 5 mmol/L (-3-3) FiO2 90/vent Results All relevant outside records, renal labs, imaging studies, telemetry/EKG's were reviewed. Justicifation of Admission Dx: Justifications for Admission: Justification of Admission Dx: Yes MULUGETA PEREZ MD Feb 28, 2020 09:35
--- NOTE | 2020-02-28 09:58 | PDOC ---
Date of Service: DATE: 02/28/20 TIME: 09:55 Objective: Objective: No GI concerns per nurse. Vital Signs: Vital Signs Date Time Temp Pulse Resp B/P (MAP) Pulse Ox O2 Delivery O2 Flow Rate FiO2 02/28/20 09:00 71 22 123/59 (80) 94 Ventilator 02/28/20 07:00 99.7 99.7 Labs: Laboratory Tests Test 02/27/20 12:02 02/27/20 17:53 02/28/20 00:10 02/28/20 05:15 Glucose (Fingerstick) 232 mg/dL 155 mg/dL 166 mg/dL 194 mg/dL White Blood Count 6.3 x10^3/uL Red Blood Count 3.26 x10^6/uL Hemoglobin 8.0 g/dL Hematocrit 25.9 % Mean Corpuscular Volume 80 fL Mean Corpuscular Hemoglobin 25 pg Mean Corpuscular Hemoglobin Concent 31 g/dL Red Cell Distribution Width 18.2 % Platelet Count 262 x10^3/uL Neutrophils (%) (Auto) 73 % Lymphocytes (%) (Auto) 12 % Monocytes (%) (Auto) 11 % Eosinophils (%) (Auto) 2 % Basophils (%) (Auto) 1 % Neutrophils # (Auto) 4.6 x10^3/uL Lymphocytes # (Auto) 0.8 x10^3/uL Monocytes # (Auto) 0.7 x10^3/uL Eosinophils # (Auto) 0.2 x10^3/uL Basophils # (Auto) 0.1 x10^3/uL Sodium Level 140 mmol/L Potassium Level 4.3 mmol/L Chloride Level 101 mmol/L Carbon Dioxide Level 32 mmol/L Anion Gap 7 Blood Urea Nitrogen 57 mg/dL Creatinine 2.7 mg/dL Estimated GFR (Cockcroft-Gault) 23.6 Glucose Level 188 mg/dL Calcium Level 9.1 mg/dL Phosphorus Level 5.9 mg/dL Magnesium Level 2.4 mg/dL Total Bilirubin 0.5 mg/dL Direct Bilirubin 0.3 mg/dL Aspartate Amino Transf (AST/SGOT) 28 U/L Alanine Aminotransferase (ALT/SGPT) 11 U/L Alkaline Phosphatase 69 U/L Total Protein 6.7 g/dL Albumin 2.4 g/dL Procalcitonin 0.60 ng/mL Test 02/28/20 07:00 O2 Saturation 84 % Arterial Blood pH 7.37 Arterial Blood pCO2 at Patient Temp 56 mmHg Arterial Blood pO2 at Patient Temp 54 mmHg Arterial Blood HCO3 32 mmol/L Arterial Blood Base Excess 5 mmol/L FiO2 90/vent PE: GEN: intubated LUNGS: vent/clear HEART: RRR ABD: large, soft, tube feeds running, rectal tube w/ soft/liquid brown stool NEURO/PSYCH: sedated A/P: Encephalopathy, resp failure Chronic TAN - stable - on IV iron H/o PUD - no bleeding, on IV PPI Cholelihtiasis w/ distended GB and pericholecystic fluid - LFTs still normal COVID negative 02/21/20 -- Continue same per GI. Justicifation of Admission Dx: Justifications for Admission: Justification of Admission Dx: Yes ANCA ROSENBAUM Feb 28, 2020 09:58
[2020-02-28] MEDS: MICAFUNGIN 100 MG in IV DEXTROSE 5% 100ML 100 ML IV SCH (11:26)
--- NOTE | 2020-02-28 16:13 | NUR ---
SS following up with discharge planning. SS reviewed pt chart and discussed with pt RN. Pt is currently on the vent at 100%. COVID19 negative. Pt on IV Micafungin, IV Zyvox, and IV Zosyn. Not stable. SS will continue to follow for discharge planning.
[2020-02-28] MEDS: SIMVASTATIN 40 MG TABLET. PO SCH (20:44)
[2020-02-29] VITALS (24 sets, daily range): BP systolic 107–140; BP diastolic 51–66
[2020-02-29] MEDS: PIPERACILLIN/TAZOBACTAM 3.375 GM in IV NORMAL SALINE 50ML 50 ML IV SCH ×4 (00:12→17:37)
[2020-02-29] MEDS: INSULIN LISPRO 300 UNITS/3 ML VIAL. SQ SCH ×4 (00:14→17:37)
[2020-02-29] MEDS: PROPOFOL 100 ML IV PRN ×7 (01:55→22:31)
[2020-02-29 06:09] LABS: BASO # 0.1 x10^3/uL (0.0-0.2); BASO % 1 % (0-3); EOS # 0.2 x10^3/uL (0.0-0.7); EOS % 2 % (0-3); HEMATOCRIT 25.3 % (39.0-53.0); HEMOGLOBIN 7.8 g/dL (13.0-17.5); LYMPH # 0.6 x10^3/uL (1.0-4.8); LYMPH % 6 % (24-48); MEAN CORPUSCULAR HEMOGLOBIN 25 pg (25-35); MEAN CORPUSCULAR HGB CONC 31 g/dL (31-37); MEAN CORPUSCULAR VOLUME 80 fL (79-100); MONO # 1.3 x10^3/uL (0.0-1.1); MONO % 14 % (0-9); NEUT # 7.5 x10^3/uL (1.8-7.7); NEUT % 77 % (31-73); PLATELET COUNT 263 x10^3/uL (140-400); RED BLOOD COUNT 3.18 x10^6/uL (4.30-5.70); RED CELL DISTRIBUTION WIDTH 18.2 % (11.5-14.5); WHITE BLOOD COUNT 9.6 x10^3/uL (4.0-11.0)
[2020-02-29 06:18] LABS: CALCIUM 8.8 mg/dL (8.5-10.1); CREATININE 2.7 mg/dL (0.7-1.3); GFR 23.6; PHOSPHORUS 5.9 mg/dL (2.6-4.7); POTASSIUM 4.6 mmol/L (3.5-5.1)
[2020-02-29] MEDS: PANTOPRAZOLE IV PUSH 40 MG VIAL. IVP SCH (07:37)
[2020-02-29] MEDS: MULTIVITAMINS,THERAPEUTIC 5 ML ORAL LIQUID. PEG SCH (07:38)
[2020-02-29] MEDS: FUROSEMIDE 40 MG/4 ML VIAL. IVP SCH ×2 (07:38→21:08)
[2020-02-29] MEDS: FENOFIBRATE,MICRONIZED 134 MG CAPSULE PO SCH (07:38)
[2020-02-29] MEDS: CHOLECALCIFEROL (VITAMIN D3) 1,000 UNIT TABLET PO SCH (07:39)
[2020-02-29] MEDS: PROPRANOLOL 40 MG TABLET. PO SCH ×2 (07:39→21:09)
--- NOTE | 2020-02-29 07:56 | PDOC ---
Infectious Disease Note Subjective Subjective Patient remains intubated/sedated ROS ROS no n/v/d/ Vital Sign Vital Signs Vital Signs Date Time Temp Pulse Resp B/P (MAP) Pulse Ox O2 Delivery O2 Flow Rate FiO2 02/29/20 07:39 82 135/53 02/29/20 07:30 100 Ventilator 02/29/20 07:00 98.2 22 98.2 Physical Exam PHYSICAL EXAM GENERAL: Intubated, sedated HEENT: Normocephalic, atraumatic, anicteric. OGT/ETT present LUNGS: Clear anteriorly. HEART: S1, S2. ABDOMEN: Obese. Bowel sounds present, nondistended. GENITOURINARY: Scrotal swelling. Yeast in groin [place] in place. EXTREMITIES: Bilateral venous stasis changes present. Wounds present over both lower extremities, hyperkeratotic skin, no cyanosis, no clubbing. DERMATOLOGIC: Warm, dry. No generalized rash except for above. Lines right internal jugular vein in place. Temporary HDC present Labs Lab Laboratory Tests Test 02/28/20 12:30 02/28/20 23:54 02/29/20 05:50 02/29/20 06:03 Glucose (Fingerstick) 229 mg/dL (70-99) 233 mg/dL (70-99) 250 mg/dL (70-99) White Blood Count 9.6 x10^3/uL (4.0-11.0) Red Blood Count 3.18 x10^6/uL (4.30-5.70) Hemoglobin 7.8 g/dL (13.0-17.5) Hematocrit 25.3 % (39.0-53.0) Mean Corpuscular Volume 80 fL (79-100) Mean Corpuscular Hemoglobin 25 pg (25-35) Mean Corpuscular Hemoglobin Concent 31 g/dL (31-37) Red Cell Distribution Width 18.2 % (11.5-14.5) Platelet Count 263 x10^3/uL (140-400) Neutrophils (%) (Auto) 77 % (31-73) Lymphocytes (%) (Auto) 6 % (24-48) Monocytes (%) (Auto) 14 % (0-9) Eosinophils (%) (Auto) 2 % (0-3) Basophils (%) (Auto) 1 % (0-3) Neutrophils # (Auto) 7.5 x10^3/uL (1.8-7.7) Lymphocytes # (Auto) 0.6 x10^3/uL (1.0-4.8) Monocytes # (Auto) 1.3 x10^3/uL (0.0-1.1) Eosinophils # (Auto) 0.2 x10^3/uL (0.0-0.7) Basophils # (Auto) 0.1 x10^3/uL (0.0-0.2) Sodium Level 138 mmol/L (136-145) Potassium Level 4.6 mmol/L (3.5-5.1) Chloride Level 100 mmol/L (98-107) Carbon Dioxide Level 31 mmol/L (21-32) Anion Gap 7 (6-14) Blood Urea Nitrogen 70 mg/dL (8-26) Creatinine 2.7 mg/dL (0.7-1.3) Estimated GFR (Cockcroft-Gault) 23.6 Glucose Level 246 mg/dL (70-99) Calcium Level 8.8 mg/dL (8.5-10.1) Phosphorus Level 5.9 mg/dL (2.6-4.7) Magnesium Level 2.3 mg/dL (1.8-2.4) Albumin 2.0 g/dL (3.4-5.0) Micro Microbiology 02/21/20 Blood Culture - Final, Complete NO GROWTH AFTER 5 DAYS Objective Assessment Febrile illness resolved Acute hypoxic respiratory failure status post intubation Encephalopathy likely metabolic NATASHA with underlying CKD Diabetes mellitus Chronic venous stasis with bilateral chronic nonhealing lower extremity wounds with mild superimposed cellulitis Yeast in groin Elevated ammonia , cholelithiasis with distended gb on ct abdomen. History of atrial fibrillation. History of pulmonary embolism and deep venous thrombosis, status post IVC filter. Rapid COVID negative, 02/20. 10. Chronic venous stasis dermatitis, bilateral lower extremities with mild superimposed bilateral lower extremity cellulitis. 11. Congestive heart failure. 12. [facility] resident. 13. Elevated D-dimer. 14. Anemia. RECOMMENDATIONS: 1. Discontinue meropenem as the patient does not need 2-beta lactams 2. Continue Zosyn. 3. Add Zyvox and micafungin. 4. Follow up labs and cultures. 5. Continue local wound care. 6. Continue supportive care. 7. GI, Pulmonary, Neurology and Renal team consulte Plan Plan of Care Continue Zosyn Zyvox and micafungin Follow-up cultures Continue wound care Continue supportive care Monitor labs Discussed with RN prognosis poor KENISHA BURRIS MD Feb 29, 2020 07:56
[2020-02-29 07:57] LABS: BASE EXCESS ABG 5 mmol/L (-3-3); HCO3 ABG 32 mmol/L (21-28); PO2 ABG 78 mmHg (65-108); SAT O2 ABG 94 % (92-99)
--- NOTE | 2020-02-29 08:12 | PDOC ---
[employer] PROGRESS NOTE Date of Service DOS: DATE: 02/29/20 TIME: 08:10 Chief Complaint Chief Complaint VTE Prophylaxis Ordered VTE Prophylaxis Devices: Yes VTE Pharmacological Prophylaxi: Yes Assessment/Plan Assessment/Plan impression 1. Acute hypoxic / severe hypercapnic respiratory failure, 2. Chronic obstructive pulmonary disease. 3. Type 2 diabetes mellitus with peripheral neuropathy. 4. Hypertension. 5. Hyperlipidemia. 6. atrial fibrillation 7. History of deep vein thrombosis and pulmonary emboli x 3 for which he was on Coumadin. has now an inferior vena cava filter. Placement of retrievable IVC filter 11/12 8. bilateral lower extremity //chronic venous stasis dermatitis 9. morbid obesity 10. PUI COVID 19 11. 4 mm non bleeding antral gastric ulcer and erosive gastritis (bx) 11/12 12. NATASHA 13, ISCHEMIC CVD CT HEAD 14. CODE STROKE IN ER 15. ACUTE METABOLIC ENCEPHALOPATHY 16, POSSIBLE ASPIRATION, PNEUMONIA, SHOCK 17. Distended gallbladder, pericholecystic fluid and gallstones. Findings are equivocal for acute cholecystitis. 18. Diffuse hepatic steatosis. 19. Temporary dialysis catheter inserted 02-25-20 Scrotal swelling. Yeast in groin [place] BLOOD CULTURE Final NO GROWTH AFTER 5 DAYS 02-26-20 plan icu bed pulm consult cardiology consult GI CONSULT NEPHROLOGY CONSULT Neurology consult ID CONSULT ECHO d/c meropenem Continue Zosyn. Add Zyvox and micafungin. remains full code 37 MIN CC TIME BLOOD CULTURE Final NO GROWTH AFTER 5 DAYS 02-26-20 History of Present Illness History of Present Illness 69 yr old male, transfer from [place] due to AMS, required vent support for respiratory failure BECAME HYPOXIC 0330, INTUBATED IN ER, WAS OBTUNDED, HAD ELEVATED D-DIMER BUN 32, CR 2.1 UDS NEG, PRO-BNP 5556 WAS CODE STROKE ON PRESENTATION DUE TO AMS RESIDENT OF [facility] , admitted by DR CASTANEDA HERE ON NOV 2019 D DIMER 1.82 BUT RENAL FX PROHIBITS CTA CHEST, DEFER TO PULM poor candidate for long-term anticoagulation. WAS outpatient referral for [facility]O by cardiology 02/27/2020 Patient seen and evaluated in ICU. On ventilator, FiO2 100%, PEEP 5. Continue Lasix, Zosyn, and linezolid. Charts and labs reviewed. 02/28/2020 Patient seen in ICU. On ventilator, FiO2 90%, PEEP 5. Continue to diurese. Continue antibiotic treatment with Zosyn and linezolid discussed with RN. 02/29/2020 Patient seen in ICU. Remains ventilator, FiO2 100%, PEEP 8. No acute events overnight. Afebrile. Continue to diurese, continue antibiotic treatment. Vitals/I&O Vitals/I&O: Vital Signs Date Time Temp Pulse Resp B/P (MAP) Pulse Ox O2 Delivery O2 Flow Rate FiO2 02/29/20 08:03 Mechanical Ventilator 02/29/20 08:01 82 22 132/57 (82) 22 02/29/20 07:00 98.2 98.2 I & O 02/28/20 02/28/20 02/29/20 15:00 23:00 07:00 Intake Total 650 ml 1736 ml 2107 ml Output Total 325 ml 1800 ml 1110 ml Balance 325 ml -64 ml 997 ml Physical Exam Physical Exam: GENERAL: Intubated, sedated HEENT: Normocephalic, atraumatic, anicteric. OGT/ETT present LUNGS: Clear anteriorly. HEART: S1, S2. ABDOMEN: Obese. Bowel sounds present, nondistended. GENITOURINARY: Scrotal swelling. Yeast in groin [place] in place. EXTREMITIES: Bilateral venous stasis changes present. Wounds present over both lower extremities, hyperkeratotic skin, no cyanosis, no clubbing. DERMATOLOGIC: Warm, dry. No generalized rash except for above. Lines right internal jugular vein in place. Temporary HDC present General: Other (Intubated.) Heart: Regular rate Lungs: Clear Abdomen: Normal bowel sounds Extremities: Other (1+ bilateral LE edema. Chronic bilateral LE venous stasis dermatitis ) Labs Labs: Laboratory Tests Test 02/28/20 12:30 02/28/20 23:54 02/29/20 05:50 02/29/20 06:03 Glucose (Fingerstick) 229 mg/dL (70-99) 233 mg/dL (70-99) 250 mg/dL (70-99) White Blood Count 9.6 x10^3/uL (4.0-11.0) Red Blood Count 3.18 x10^6/uL (4.30-5.70) Hemoglobin 7.8 g/dL (13.0-17.5) Hematocrit 25.3 % (39.0-53.0) Mean Corpuscular Volume 80 fL (79-100) Mean Corpuscular Hemoglobin 25 pg (25-35) Mean Corpuscular Hemoglobin Concent 31 g/dL (31-37) Red Cell Distribution Width 18.2 % (11.5-14.5) Platelet Count 263 x10^3/uL (140-400) Neutrophils (%) (Auto) 77 % (31-73) Lymphocytes (%) (Auto) 6 % (24-48) Monocytes (%) (Auto) 14 % (0-9) Eosinophils (%) (Auto) 2 % (0-3) Basophils (%) (Auto) 1 % (0-3) Neutrophils # (Auto) 7.5 x10^3/uL (1.8-7.7) Lymphocytes # (Auto) 0.6 x10^3/uL (1.0-4.8) Monocytes # (Auto) 1.3 x10^3/uL (0.0-1.1) Eosinophils # (Auto) 0.2 x10^3/uL (0.0-0.7) Basophils # (Auto) 0.1 x10^3/uL (0.0-0.2) Sodium Level 138 mmol/L (136-145) Potassium Level 4.6 mmol/L (3.5-5.1) Chloride Level 100 mmol/L (98-107) Carbon Dioxide Level 31 mmol/L (21-32) Anion Gap 7 (6-14) Blood Urea Nitrogen 70 mg/dL (8-26) Creatinine 2.7 mg/dL (0.7-1.3) Estimated GFR (Cockcroft-Gault) 23.6 Glucose Level 246 mg/dL (70-99) Calcium Level 8.8 mg/dL (8.5-10.1) Phosphorus Level 5.9 mg/dL (2.6-4.7) Magnesium Level 2.3 mg/dL (1.8-2.4) Albumin 2.0 g/dL (3.4-5.0) Comment Review of Relevant I have reviewed the following items megan (where applicable) has been applied. Medications: Current Medications Medications (Trade) Dose Ordered Sig/Dulce Route PRN Reason Start Time Stop Time Status Last Admin Dose Admin Furosemide (Lasix) 40 mg BID IVP 02/28/20 09:00 02/29/20 07:38 Justifications for Admission Other Justification resp failure BARB OCHOA MD Feb 29, 2020 08:12
[2020-02-29 08:25] LABS: PCO2 ABG 61 mmHg (35-46)
[2020-02-29] MEDS: MICAFUNGIN 100 MG in IV DEXTROSE 5% 100ML 100 ML IV SCH (08:53)
[2020-02-29] MEDS: ELECTROLYTE (ICU) PROTOCOL. MC SCH (09:00)
[2020-02-29] MEDS: IRON SUCROSE COMPLEX 200 MG in IV NORMAL SALINE 100ML 100 ML IV SCH (09:07)
--- NOTE | 2020-02-29 09:16 | PDOC ---
Date of Service: DATE: 02/29/20 TIME: 09:13 Objective: Objective: No GI concerns, primary to call and talk w/ family. Vital Signs: Vital Signs Date Time Temp Pulse Resp B/P (MAP) Pulse Ox O2 Delivery O2 Flow Rate FiO2 02/29/20 08:03 Mechanical Ventilator 02/29/20 08:01 82 22 132/57 (82) 22 02/29/20 07:00 98.2 98.2 Labs: Laboratory Tests Test 02/28/20 12:30 02/28/20 23:54 02/29/20 05:50 02/29/20 06:03 Glucose (Fingerstick) 229 mg/dL 233 mg/dL 250 mg/dL White Blood Count 9.6 x10^3/uL Red Blood Count 3.18 x10^6/uL Hemoglobin 7.8 g/dL Hematocrit 25.3 % Mean Corpuscular Volume 80 fL Mean Corpuscular Hemoglobin 25 pg Mean Corpuscular Hemoglobin Concent 31 g/dL Red Cell Distribution Width 18.2 % Platelet Count 263 x10^3/uL Neutrophils (%) (Auto) 77 % Lymphocytes (%) (Auto) 6 % Monocytes (%) (Auto) 14 % Eosinophils (%) (Auto) 2 % Basophils (%) (Auto) 1 % Neutrophils # (Auto) 7.5 x10^3/uL Lymphocytes # (Auto) 0.6 x10^3/uL Monocytes # (Auto) 1.3 x10^3/uL Eosinophils # (Auto) 0.2 x10^3/uL Basophils # (Auto) 0.1 x10^3/uL Sodium Level 138 mmol/L Potassium Level 4.6 mmol/L Chloride Level 100 mmol/L Carbon Dioxide Level 31 mmol/L Anion Gap 7 Blood Urea Nitrogen 70 mg/dL Creatinine 2.7 mg/dL Estimated GFR (Cockcroft-Gault) 23.6 Glucose Level 246 mg/dL Calcium Level 8.8 mg/dL Phosphorus Level 5.9 mg/dL Magnesium Level 2.3 mg/dL Albumin 2.0 g/dL Test 02/29/20 07:30 O2 Saturation 94 % Arterial Blood pH 7.34 Arterial Blood pCO2 at Patient Temp 61 mmHg Arterial Blood pO2 at Patient Temp 78 mmHg Arterial Blood HCO3 32 mmol/L Arterial Blood Base Excess 5 mmol/L FiO2 100/vent Imaging: CXR 02/28 pending PE: GEN: intubated LUNGS: vent/clear HEART: RRR ABD: large, soft NEURO/PSYCH: sedated A/P: Encephalopathy, resp failure Chronic TAN and h/o PUD - on IV PPI and iron - Hgb stable, no bleeding Cholelihtiasis w/ distended GB and pericholecystic fluid - LFTs WNL COVID negative 02/21/20 -- Stable from GI standpoint. Justicifation of Admission Dx: Justifications for Admission: Justification of Admission Dx: Yes ANCA ROSENBAUM Feb 29, 2020 09:15
--- NOTE | 2020-02-29 09:17 | PDOC ---
DATE OF SERVICE DATE: 02/29/20 TIME: 09:14 SUBJECTIVE ROS remains intubated OBJECTIVE Vital Signs Vital Signs Date Time Temp Pulse Resp B/P (MAP) Pulse Ox O2 Delivery O2 Flow Rate FiO2 02/29/20 08:03 Mechanical Ventilator 02/29/20 08:01 82 22 132/57 (82) 22 02/29/20 07:00 98.2 98.2 I & 0 Intake and Output 02/29/20 07:00 Intake Total 4493 ml Output Total 3235 ml Balance 1258 ml Intake IV Total 1615 ml Tube Feeding 2178 ml Other 700 ml Output Urine Total 2235 ml Stool Total 1000 ml Gastric Drainage Total 0 ml PHYSICAL EXAM Physical Exam GENERAL: Intubated, sedated HEENT: anicteric. OGT/ETT present LUNGS: Clear anteriorly. HEART: S1, S2. ABDOMEN: Obese. Bowel sounds present, nondistended. : Scrotal swelling. Yeast in groin, [place] in place. EXTREMITIES: Bilateral venous stasis changes present. Wounds present over both lower extremities, hyperkeratotic skin, no cyanosis, no clubbing. DERM Warm, dry. No generalized rash except for above. Temporary HDC + DIAGNOSIS/ASSESSMENT Assessment & Plan NATASHA - worsening renal function 02/23 ,showing some improvement, stable ,non Oliguric Adequate UOP , E-Lytes stable , Temp HDC was placed over the weekend in anticipation of dialysis , Currently no emergent indication . Lasix decreased from TID to BID on on 02/26 ; .Supportive care, strict I/O, monitor CKD stage 4 04/26 - Cr 2.63 with eGFR 24 in May 2017, used to follow with Dr. Julio, Presumed DM/ HTNsive Recently labs Cr 2.1 -2.2 , UA unremarkable, Rt Kidney reported normal on Abd US Proteinuria- Low grade Pr/Cr < 500 Hx of NATASHA on CKD-in Oct 2019 , 2/2 GI bleed ; in 2018 . Past vazquez no significant proteinuria Acute Anemia in Oct 2019 - s/p EGD with PUD . s/p PRBC , FFP's in Oct 2019 . Currently on IV Fe DM II- per primary HTN-- stable Acute on chronic diastolic CHF; Echo 03/13 with preserved LV systolic function . S/p IV Bumex at [facility] PAFIB; Was in AFIB with controlled rate per EKG at [facility]. Presently SR Hx DVT/PE. S/p IVC filter Morbid obesity Anasarca on IV Lasix and IV albumin started over this weekend , decrease dose as above ,Hypoalbuminemia, Obesity and pulmonary hypertension may be contributing Diffuse hepatic steatosis : defered to Primary team/ GI. COMMENT/RELEVANT DATA Meds Current Medications Medications (Trade) Dose Ordered Sig/Dulce Start Time Stop Time Status Last Admin Dose Admin Albumin Human 200 ml @ 200 mls/hr TID 02/26/20 12:30 02/27/20 21:59 DC 02/27/20 20:44 200 MLS/HR Apixaban (Eliquis) 5 mg BID 02/21/20 21:30 02/22/20 09:28 DC 02/22/20 08:46 5 MG Bisacodyl (Dulcolax Supp) 10 mg PRN DAILY PRN 02/21/20 12:15 Darbepoetin Jake (ARANESP for DIALYSIS PTS) 60 mcg WEEKLYHS 02/25/20 21:00 02/26/20 07:45 60 MCG Dextrose (Dextrose 50%-Water Syringe) 12.5 gm PRN Q15MIN PRN 02/23/20 08:00 Famotidine (Pepcid Vial) 20 mg BID 02/21/20 13:00 02/21/20 12:53 DC Fenofibrate (Lofibra) 134 mg DAILY 02/22/20 09:00 02/29/20 07:38 134 MG Fentanyl Citrate 55 ml @ 0 mls/hr CONT PRN 02/21/20 11:00 02/28/20 04:04 1.5 MLS/HR Fentanyl Citrate (Fentanyl 2ml Vial) 50 mcg PRN Q1HR PRN 02/21/20 06:45 Furosemide (Lasix) 40 mg BID 02/28/20 09:00 02/29/20 07:38 40 MG Influenza Virus Vaccine Quadrival (Fluzone Quad Syringe) 0.5 ml ONCE ONCE 02/22/20 09:00 02/22/20 09:01 DC Info (Anti-Coagulation Monitoring By Pharmacy) 1 each PRN DAILY PRN 02/22/20 08:15 Info (FLU VACCINE SCREEN per RX) 1 each 1X ONCE 02/22/20 00:00 02/22/20 00:01 UNV Info (Icu Electrolyte Protocol) 1 ea DAILY 02/22/20 09:00 02/29/20 09:00 1 EA Info (PHARMACY MONITORING -- do not chart) 1 each PRN DAILY PRN 02/26/20 10:00 Insulin Human Lispro (HumaLOG) 0-5 UNITS Q6HRS 02/23/20 12:00 02/29/20 06:10 3 UNITS Iron Sucrose 200 mg/Sodium Chloride 110 ml @ 55 mls/hr 3X/WEEK 02/27/20 09:00 03/07/20 10:59 02/29/20 09:07 55 MLS/HR Lidocaine HCl (Buffered Lidocaine 1%) 6 ml 1X ONCE 02/25/20 16:45 02/25/20 16:47 DC 02/25/20 16:50 4 ML Linezolid/Dextrose 300 ml @ 300 mls/hr Q12HR 02/22/20 11:30 02/22/20 11:20 DC Magnesium Sulfate 50 ml @ 25 mls/hr PRN DAILY PRN 02/24/20 08:15 Meropenem 500 mg/ Sodium Chloride 50 ml @ 100 mls/hr Q8HRS 02/21/20 14:00 02/22/20 08:19 DC 02/22/20 05:38 100 MLS/HR Micafungin Sodium 100 mg/Dextrose 100 ml @ 100 mls/hr Q24H 02/22/20 12:00 02/29/20 08:53 100 MLS/HR Midazolam HCl 100 ml @ 0 mls/hr CONT PRN 02/21/20 06:45 02/24/20 11:18 DC 02/23/20 21:56 8 MLS/HR Morphine Sulfate (Morphine Sulfate) 4 mg PRN Q1HR PRN 02/21/20 06:45 02/23/20 06:20 DC Multivitamins (Thera M Plus) 1 tab DAILY 02/22/20 09:00 02/22/20 08:44 DC Multivitamins/ Minerals Therapeutic (Centrum Multivit-Mineral Liq) 5 ml DAILY 02/22/20 09:00 02/29/20 07:38 5 ML Ondansetron HCl (Zofran) 4 mg PRN Q6HRS PRN 02/21/20 12:15 Pantoprazole Sodium (PROTONIX VIAL for IV PUSH) 40 mg DAILY 02/22/20 09:00 02/29/20 07:37 40 MG Pantoprazole Sodium (Protonix) 40 mg DAILYAC 02/22/20 07:30 02/21/20 22:27 DC Piperacillin Sod/ Tazobactam Sod (Zosyn Per Pharmacy) 1 each PRN DAILY PRN 02/21/20 12:15 Piperacillin Sod/ Tazobactam Sod 3.375 gm/Sodium Chloride 50 ml @ 100 mls/hr Q6HRS 02/21/20 18:00 02/29/20 08:54 100 MLS/HR Potassium Chloride/Water 100 ml @ 100 mls/hr Q1H 02/23/20 08:00 02/23/20 09:59 DC 02/23/20 09:18 100 MLS/HR Propofol 100 ml @ 0 mls/hr CONT PRN 02/21/20 06:45 02/29/20 08:52 24.8 MLS/HR Propranolol HCl (Inderal) 40 mg BID 02/21/20 21:30 02/29/20 07:39 40 MG Simvastatin (Zocor) 40 mg QHS 02/21/20 21:00 02/28/20 20:44 40 MG Sodium Chloride 1,000 ml @ 400 mls/hr Q2H30M PRN 02/26/20 10:00 02/26/20 21:59 DC Sodium Chloride (Normal Saline Flush) 10 ml 1X PRN PRN 02/25/20 20:00 02/26/20 19:59 DC Sucralfate (Carafate) 1 gm QID 02/21/20 21:30 02/21/20 22:23 DC Vitamin D (Vitamin D3) 1,000 unit DAILY 02/22/20 09:00 02/29/20 07:39 1,000 UNIT Lab Laboratory Tests Test 02/28/20 12:30 02/28/20 23:54 02/29/20 05:50 02/29/20 06:03 Glucose (Fingerstick) 229 mg/dL (70-99) 233 mg/dL (70-99) 250 mg/dL (70-99) White Blood Count 9.6 x10^3/uL (4.0-11.0) Red Blood Count 3.18 x10^6/uL (4.30-5.70) Hemoglobin 7.8 g/dL (13.0-17.5) Hematocrit 25.3 % (39.0-53.0) Mean Corpuscular Volume 80 fL (79-100) Mean Corpuscular Hemoglobin 25 pg (25-35) Mean Corpuscular Hemoglobin Concent 31 g/dL (31-37) Red Cell Distribution Width 18.2 % (11.5-14.5) Platelet Count 263 x10^3/uL (140-400) Neutrophils (%) (Auto) 77 % (31-73) Lymphocytes (%) (Auto) 6 % (24-48) Monocytes (%) (Auto) 14 % (0-9) Eosinophils (%) (Auto) 2 % (0-3) Basophils (%) (Auto) 1 % (0-3) Neutrophils # (Auto) 7.5 x10^3/uL (1.8-7.7) Lymphocytes # (Auto) 0.6 x10^3/uL (1.0-4.8) Monocytes # (Auto) 1.3 x10^3/uL (0.0-1.1) Eosinophils # (Auto) 0.2 x10^3/uL (0.0-0.7) Basophils # (Auto) 0.1 x10^3/uL (0.0-0.2) Sodium Level 138 mmol/L (136-145) Potassium Level 4.6 mmol/L (3.5-5.1) Chloride Level 100 mmol/L (98-107) Carbon Dioxide Level 31 mmol/L (21-32) Anion Gap 7 (6-14) Blood Urea Nitrogen 70 mg/dL (8-26) Creatinine 2.7 mg/dL (0.7-1.3) Estimated GFR (Cockcroft-Gault) 23.6 Glucose Level 246 mg/dL (70-99) Calcium Level 8.8 mg/dL (8.5-10.1) Phosphorus Level 5.9 mg/dL (2.6-4.7) Magnesium Level 2.3 mg/dL (1.8-2.4) Albumin 2.0 g/dL (3.4-5.0) Test 02/29/20 07:30 O2 Saturation 94 % (92-99) Arterial Blood pH 7.34 (7.35-7.45) Arterial Blood pCO2 at Patient Temp 61 mmHg (35-46) Arterial Blood pO2 at Patient Temp 78 mmHg (65-108) Arterial Blood HCO3 32 mmol/L (21-28) Arterial Blood Base Excess 5 mmol/L (-3-3) FiO2 100/vent Results All relevant outside records, renal labs, imaging studies, telemetry/EKG's were reviewed. Justicifation of Admission Dx: Justifications for Admission: Justification of Admission Dx: Yes MULUGETA PEREZ MD Feb 29, 2020 09:16
--- NOTE | 2020-02-29 09:19 | RAD ---
EXAM: Chest, single view. HISTORY: Ventilatory support. COMPARISON: 02/27/2020 FINDINGS: A frontal view of the chest obtained. There is an endotracheal tube within the mid trachea. There is nasogastric tube within the stomach. There are right internal jugular central venous cathet er terminating within the superior cavoatrial junction and right atrium. There has been no change in a moderate right and small left pleural effusions and diffuse central predominant interstitial infilt rate. There is stable enlargement of the cardiac silhouette. There is no pneumothorax. IMPRESSION: 1. Stable moderate right and small left pleural effusions and diffuse central predominant interstitia l infiltrate. 2. Stable support lines and tubes. Electronically signed by: Shadia Omalley MD (02/29/2020 9:17 AM) [id number]
--- NOTE | 2020-02-29 10:12 | PDOC ---
PROGRESS NOTES Date of Service DATE: 02/29/20 TIME: 10:07 Assessment Possible seizure activity noted / Metabolic encephalopathy Respiratory failure, acute kidney injury (not requiring dialysis yet), diabetes, history of GI bleed several months ago, cholelithiasis, elevated ammonia level, diabetes, venous stasis and cellulitis, sepsis, history of atrial fibrillation, history of pulmonary embolism and deep venous thrombosis, congestive heart failure No evidence that he had a stroke. Febrile illness resolved Rapid COVID negative, 02/20. Plan Patient is on fentanyl and propofol, I see no need for electroencephalogram or adding on levetiracetam No additional neurological studies or treatments needed at this time Neurology will follow at intervals Subjective none Objective Vital Signs Date Time Temp Pulse Resp B/P (MAP) Pulse Ox O2 Delivery O2 Flow Rate FiO2 02/29/20 08:03 Mechanical Ventilator 02/29/20 08:01 82 22 132/57 (82) 22 02/29/20 07:00 98.2 98.2 Intake and Output 02/29/20 07:00 Intake Total 4493 ml Output Total 3235 ml Balance 1258 ml Intake IV Total 1615 ml Tube Feeding 2178 ml Other 700 ml Output Urine Total 2235 ml Stool Total 1000 ml Gastric Drainage Total 0 ml PHYSICAL EXAM Intubated and sedated PERRL. No spontaneous extraocular movements CN: no focal findings. Muscle tone: normal. Muscle strength: No response to pain DTR: 0+ Plantar reflex: Silent Gait: not examined in bed. Sensory exam: no abnormal findings. No cerebellar signs elicited. Review of Relevant I have reviewed the following items megan (where applicable) has been applied. Labs Laboratory Tests Test 02/27/20 12:02 02/27/20 17:53 02/28/20 00:10 02/28/20 05:15 Glucose (Fingerstick) 232 mg/dL (70-99) 155 mg/dL (70-99) 166 mg/dL (70-99) 194 mg/dL (70-99) White Blood Count 6.3 x10^3/uL (4.0-11.0) Red Blood Count 3.26 x10^6/uL (4.30-5.70) Hemoglobin 8.0 g/dL (13.0-17.5) Hematocrit 25.9 % (39.0-53.0) Mean Corpuscular Volume 80 fL (79-100) Mean Corpuscular Hemoglobin 25 pg (25-35) Mean Corpuscular Hemoglobin Concent 31 g/dL (31-37) Red Cell Distribution Width 18.2 % (11.5-14.5) Platelet Count 262 x10^3/uL (140-400) Neutrophils (%) (Auto) 73 % (31-73) Lymphocytes (%) (Auto) 12 % (24-48) Monocytes (%) (Auto) 11 % (0-9) Eosinophils (%) (Auto) 2 % (0-3) Basophils (%) (Auto) 1 % (0-3) Neutrophils # (Auto) 4.6 x10^3/uL (1.8-7.7) Lymphocytes # (Auto) 0.8 x10^3/uL (1.0-4.8) Monocytes # (Auto) 0.7 x10^3/uL (0.0-1.1) Eosinophils # (Auto) 0.2 x10^3/uL (0.0-0.7) Basophils # (Auto) 0.1 x10^3/uL (0.0-0.2) Sodium Level 140 mmol/L (136-145) Potassium Level 4.3 mmol/L (3.5-5.1) Chloride Level 101 mmol/L (98-107) Carbon Dioxide Level 32 mmol/L (21-32) Anion Gap 7 (6-14) Blood Urea Nitrogen 57 mg/dL (8-26) Creatinine 2.7 mg/dL (0.7-1.3) Estimated GFR (Cockcroft-Gault) 23.6 Glucose Level 188 mg/dL (70-99) Calcium Level 9.1 mg/dL (8.5-10.1) Phosphorus Level 5.9 mg/dL (2.6-4.7) Magnesium Level 2.4 mg/dL (1.8-2.4) Total Bilirubin 0.5 mg/dL (0.2-1.0) Direct Bilirubin 0.3 mg/dL (0.0-0.2) Aspartate Amino Transf (AST/SGOT) 28 U/L (15-37) Alanine Aminotransferase (ALT/SGPT) 11 U/L (16-63) Alkaline Phosphatase 69 U/L (46-116) Total Protein 6.7 g/dL (6.4-8.2) Albumin 2.4 g/dL (3.4-5.0) Procalcitonin 0.60 ng/mL (0.00-0.10) Test 02/28/20 07:00 02/28/20 12:30 02/28/20 23:54 02/29/20 05:50 O2 Saturation 84 % (92-99) Arterial Blood pH 7.37 (7.35-7.45) Arterial Blood pCO2 at Patient Temp 56 mmHg (35-46) Arterial Blood pO2 at Patient Temp 54 mmHg (65-108) Arterial Blood HCO3 32 mmol/L (21-28) Arterial Blood Base Excess 5 mmol/L (-3-3) FiO2 90/vent Glucose (Fingerstick) 229 mg/dL (70-99) 233 mg/dL (70-99) White Blood Count 9.6 x10^3/uL (4.0-11.0) Red Blood Count 3.18 x10^6/uL (4.30-5.70) Hemoglobin 7.8 g/dL (13.0-17.5) Hematocrit 25.3 % (39.0-53.0) Mean Corpuscular Volume 80 fL (79-100) Mean Corpuscular Hemoglobin 25 pg (25-35) Mean Corpuscular Hemoglobin Concent 31 g/dL (31-37) Red Cell Distribution Width 18.2 % (11.5-14.5) Platelet Count 263 x10^3/uL (140-400) Neutrophils (%) (Auto) 77 % (31-73) Lymphocytes (%) (Auto) 6 % (24-48) Monocytes (%) (Auto) 14 % (0-9) Eosinophils (%) (Auto) 2 % (0-3) Basophils (%) (Auto) 1 % (0-3) Neutrophils # (Auto) 7.5 x10^3/uL (1.8-7.7) Lymphocytes # (Auto) 0.6 x10^3/uL (1.0-4.8) Monocytes # (Auto) 1.3 x10^3/uL (0.0-1.1) Eosinophils # (Auto) 0.2 x10^3/uL (0.0-0.7) Basophils # (Auto) 0.1 x10^3/uL (0.0-0.2) Sodium Level 138 mmol/L (136-145) Potassium Level 4.6 mmol/L (3.5-5.1) Chloride Level 100 mmol/L (98-107) Carbon Dioxide Level 31 mmol/L (21-32) Anion Gap 7 (6-14) Blood Urea Nitrogen 70 mg/dL (8-26) Creatinine 2.7 mg/dL (0.7-1.3) Estimated GFR (Cockcroft-Gault) 23.6 Glucose Level 246 mg/dL (70-99) Calcium Level 8.8 mg/dL (8.5-10.1) Phosphorus Level 5.9 mg/dL (2.6-4.7) Magnesium Level 2.3 mg/dL (1.8-2.4) Albumin 2.0 g/dL (3.4-5.0) Test 02/29/20 06:03 02/29/20 07:30 Glucose (Fingerstick) 250 mg/dL (70-99) O2 Saturation 94 % (92-99) Arterial Blood pH 7.34 (7.35-7.45) Arterial Blood pCO2 at Patient Temp 61 mmHg (35-46) Arterial Blood pO2 at Patient Temp 78 mmHg (65-108) Arterial Blood HCO3 32 mmol/L (21-28) Arterial Blood Base Excess 5 mmol/L (-3-3) FiO2 100/vent Laboratory Tests Test 02/28/20 12:30 02/28/20 23:54 02/29/20 05:50 02/29/20 06:03 Glucose (Fingerstick) 229 mg/dL (70-99) 233 mg/dL (70-99) 250 mg/dL (70-99) White Blood Count 9.6 x10^3/uL (4.0-11.0) Red Blood Count 3.18 x10^6/uL (4.30-5.70) Hemoglobin 7.8 g/dL (13.0-17.5) Hematocrit 25.3 % (39.0-53.0) Mean Corpuscular Volume 80 fL (79-100) Mean Corpuscular Hemoglobin 25 pg (25-35) Mean Corpuscular Hemoglobin Concent 31 g/dL (31-37) Red Cell Distribution Width 18.2 % (11.5-14.5) Platelet Count 263 x10^3/uL (140-400) Neutrophils (%) (Auto) 77 % (31-73) Lymphocytes (%) (Auto) 6 % (24-48) Monocytes (%) (Auto) 14 % (0-9) Eosinophils (%) (Auto) 2 % (0-3) Basophils (%) (Auto) 1 % (0-3) Neutrophils # (Auto) 7.5 x10^3/uL (1.8-7.7) Lymphocytes # (Auto) 0.6 x10^3/uL (1.0-4.8) Monocytes # (Auto) 1.3 x10^3/uL (0.0-1.1) Eosinophils # (Auto) 0.2 x10^3/uL (0.0-0.7) Basophils # (Auto) 0.1 x10^3/uL (0.0-0.2) Sodium Level 138 mmol/L (136-145) Potassium Level 4.6 mmol/L (3.5-5.1) Chloride Level 100 mmol/L (98-107) Carbon Dioxide Level 31 mmol/L (21-32) Anion Gap 7 (6-14) Blood Urea Nitrogen 70 mg/dL (8-26) Creatinine 2.7 mg/dL (0.7-1.3) Estimated GFR (Cockcroft-Gault) 23.6 Glucose Level 246 mg/dL (70-99) Calcium Level 8.8 mg/dL (8.5-10.1) Phosphorus Level 5.9 mg/dL (2.6-4.7) Magnesium Level 2.3 mg/dL (1.8-2.4) Albumin 2.0 g/dL (3.4-5.0) Test 02/29/20 07:30 O2 Saturation 94 % (92-99) Arterial Blood pH 7.34 (7.35-7.45) Arterial Blood pCO2 at Patient Temp 61 mmHg (35-46) Arterial Blood pO2 at Patient Temp 78 mmHg (65-108) Arterial Blood HCO3 32 mmol/L (21-28) Arterial Blood Base Excess 5 mmol/L (-3-3) FiO2 100/vent Microbiology 02/25/20 Urine Culture - Final, Complete 12/29/20 Blood Culture - Final, Complete NO GROWTH AFTER 5 DAYS Medications Current Medications Sodium Chloride (Normal Saline Flush) 3 ml QSHIFT PRN IV AFTER MEDS AND BLOOD DRAWS; Start 02/21/20 at 06:45 Sodium Chloride 1,000 ml @ 100 mls/hr Q10H IV Last administered on 02/24/20at 04:45; Start 02/21/20 at 06:45; Stop 02/24/20 at 08:11; Status DC Fentanyl Citrate 30 ml @ 0 mls/hr CONT PRN IV SEE PROTOCOL Last administered on 02/21/20at 07:26; Start 02/21/20 at 06:45; Stop 02/21/20 at 10:59; Status DC Propofol 100 ml @ 0 mls/hr CONT PRN IV PER PROTOCOL Last administered on 02/29/20at 08:52; Start 02/21/20 at 06:45 Fentanyl Citrate (Fentanyl 2ml Vial) 25 mcg PRN Q1HR PRN IV SEE COMMENTS; Start 02/21/20 at 06:45 Fentanyl Citrate (Fentanyl 2ml Vial) 50 mcg PRN Q1HR PRN IV SEE COMMENTS; Start 02/21/20 at 06:45 Famotidine (Pepcid Vial) 20 mg BID IVP Last administered on 02/21/20at 10:23; Start 02/21/20 at 09:00; Stop 02/21/20 at 12:53; Status DC Morphine Sulfate (Morphine Sulfate) 2 mg PRN Q1HR PRN IV SEE COMMENTS.; Start 02/21/20 at 06:45; Stop 02/23/20 at 06:20; Status DC Morphine Sulfate (Morphine Sulfate) 4 mg PRN Q1HR PRN IV SEE COMMENTS.; Start 02/21/20 at 06:45; Stop 02/23/20 at 06:20; Status DC Midazolam HCl 100 ml @ 0 mls/hr CONT PRN IV SEE PROTOCOL Last administered on 02/23/20at 21:56; Start 02/21/20 at 06:45; Stop 02/24/20 at 11:18; Status DC Fentanyl Citrate 55 ml @ 0 mls/hr CONT PRN IV PAIN/SEDATION Last administered on 02/28/20at 04:04; Start 02/21/20 at 11:00 Ondansetron HCl (Zofran) 4 mg PRN Q6HRS PRN IVP NAUSEA/VOMITING; Start 02/21/20 at 12:15 Famotidine (Pepcid Vial) 20 mg BID IVP ; Start 02/21/20 at 13:00; Stop 02/21/20 at 12:53; Status DC Info (Icu Electrolyte Protocol) 1 ea DAILY MC Last administered on 02/29/20at 09: 00; Start 02/22/20 at 09:00 Sodium Chloride (Normal Saline Flush) 3 ml QSHIFT PRN IV AFTER MEDS AND BLOOD DRAWS; Start 02/21/20 at 12:15; Status Cancel Bisacodyl (Dulcolax Supp) 10 mg PRN DAILY PRN MA CONSTIPATION; Start 02/21/20 at 12:15 Piperacillin Sod/ Tazobactam Sod (Zosyn Per Pharmacy) 1 each PRN DAILY PRN MC SEE COMMENTS; Start 02/21/20 at 12:15 Meropenem 500 mg/ Sodium Chloride 50 ml @ 100 mls/hr Q8HRS IV Last administered on 02/22/20at 05:38; Start 02/21/20 at 14:00; Stop 02/22/20 at 08 :19; Status DC Pantoprazole Sodium (PROTONIX VIAL for IV PUSH) 40 mg DAILYAC IVP ; Start 02/22/20 at 16:30; Status Cancel Furosemide (Lasix) 40 mg 1X ONCE IVP Last administered on 02/21/20at 16:24; Start 02/21/20 at 15:00; Stop 02/21/20 at 15:01; Status DC Piperacillin Sod/ Tazobactam Sod 3.375 gm/Sodium Chloride 50 ml @ 100 mls/hr Q6HRS IV Last administered on 02/29/20at 08:54; Start 02/21/20 at 18:00 Simvastatin (Zocor) 40 mg QHS PO Last administered on 02/28/20 20:44; Start 02/21/20 at 21:00 Propranolol HCl (Inderal) 40 mg BID PO ; Start 02/21/20 at 21:00; Status Cancel Apixaban (Eliquis) 5 mg BID PO Last administered on 02/22/20at 08:46; Start 02/21/20 at 21:30; Stop 02/22/20 at 09:28; Status DC Pantoprazole Sodium (Protonix) 40 mg DAILYAC PO ; Start 02/22/20 at 07:30; Stop 02/21/20 at 22:27; Status DC Propranolol HCl (Inderal) 40 mg BID PO Last administered on 02/29/20 07:39; Start 02/21/20 at 21:30 Sucralfate (Carafate) 1 gm QID PO ; Start 02/21/20 at 21:30; Stop 02/21/20 at 22:23; Status DC Vitamin D (Vitamin D3) 1,000 unit DAILY PO Last administered on 02/29/20 07:39; Start 02/22/20 at 09:00 Fenofibrate (Lofibra) 134 mg DAILY PO Last administered on 02/29/20 07:38; Start 02/22/20 at 09:00 Multivitamins (Thera M Plus) 1 tab DAILY PO ; Start 02/22/20 at 09:00; Stop 02/22/20 at 08:44; Status DC Pantoprazole Sodium (PROTONIX VIAL for IV PUSH) 40 mg DAILY IVP Last administered on 02/29/20 07:37; Start 02/22/20 at 09:00 Info (FLU VACCINE SCREEN per RX) 1 each 1X ONCE MC ; Start 02/22/20 at 00:00; Stop 02/22/20 at 00:01; Status UNV Influenza Virus Vaccine Quadrival (Fluzone Quad [id number] Syringe) 0.5 ml ONCE ONCE VAX IM ; Start 02/22/20 at 09:00; Stop 02/22/20 at 09:01; Status DC Info (Anti-Coagulation Monitoring By Pharmacy) 1 each PRN DAILY PRN MC SEE COMMENTS; Start 02/22/20 at 08:15 Linezolid/Dextrose 300 ml @ 300 mls/hr Q12HR IV Last administered on 02/29/20 07:37; Start 02/22/20 at 09:00 Multivitamins/ Minerals Therapeutic (Centrum Multivit-Mineral Liq) 5 ml DAILY PEG Last administered on 02/29/20 07:38; Start 02/22/20 at 09:00 Furosemide (Lasix) 40 mg DAILY IVP Last administered on 02/26/20 07:46; Start 02/22/20 at 10:00; Stop 02/26/20 at 12:47; Status DC Micafungin Sodium 100 mg/Dextrose 100 ml @ 100 mls/hr Q24H IV Last administered on 02/29/20at 08:53; Start 02/22/20 at 12:00 Linezolid/Dextrose 300 ml @ 300 mls/hr Q12HR IV ; Start 02/22/20 at 11:30; Stop 02/22/20 at 11:20; Status DC Potassium Chloride/Water 100 ml @ 100 mls/hr Q1H IV Last administered on 02/23/20at 09:18; Start 02/23/20 at 08:00; Stop 02/23/20 at 09:59; Status DC Magnesium Sulfate 50 ml @ 25 mls/hr 1X ONCE IV Last administered on 02/23/20at 08:17; Start 02/23/20 at 08:00; Stop 02/23/20 at 09:59; Status DC Insulin Human Lispro (HumaLOG) 0-5 UNITS Q6HRS SQ Last administered on 02/29/20at 06:10; Start 02/23/20 at 12:00 Dextrose (Dextrose 50%-Water Syringe) 12.5 gm PRN Q15MIN PRN IV SEE COMMENTS; Start 02/23/20 at 08:00 Magnesium Sulfate 50 ml @ 25 mls/hr PRN DAILY PRN IV for Mag < 1.7 on am labs; Start 02/24/20 at 08:15 Darbepoetin Jake (ARANESP for DIALYSIS PTS) 60 mcg WEEKLYHS SQ Last administered on 02/26/20at 07:45; Start 02/25/20 at 21:00 Iron Sucrose 200 mg/Sodium Chloride 110 ml @ 55 mls/hr 3X/WEEK IV Last administered on 02/29/20at 09:07; Start 02/27/20 at 09:00; Stop 03/07/20 at 10:59 Lidocaine HCl (Buffered Lidocaine 1%) 3 ml STK-MED ONCE .ROUTE ; Start 02/25/20 at 15:37; Stop 02/25/20 at 15:38; Status DC Lidocaine HCl (Buffered Lidocaine 1%) 6 ml 1X ONCE INJ Last administered on 02/25/20at 16:50; Start 02/25/20 at 16:45; Stop 02/25/20 at 16:47; Status DC Sodium Chloride 1,000 ml @ 1,000 mls/hr Q1H PRN IV hypotension; Start 02/25/20 at 20:00; Stop 02/26/20 at 01:59; Status DC Albumin Human 200 ml @ 200 mls/hr 1X PRN PRN IV Hypotension; Start 02/25/20 at 20:00; Stop 02/26/20 at 01:59; Status DC Sodium Chloride (Normal Saline Flush) 10 ml 1X PRN PRN IV AP catheter pack; Start 02/25/20 at 20:00; Stop 02/26/20 at 19:59; Status DC Sodium Chloride (Normal Saline Flush) 10 ml 1X PRN PRN IV [employer] catheter pack; Start 02/25/20 at 20:00; Stop 02/26/20 at 19:59; Status DC Sodium Chloride 1,000 ml @ 400 mls/hr Q2H30M PRN IV PATENCY; Start 02/25/20 at 20:00; Stop 02/26/20 at 07:59; Status DC Info (PHARMACY MONITORING -- do not chart) 1 each PRN DAILY PRN MC SEE COMMENTS; Start 02/25/20 at 20:00; Stop 02/25/20 at 20:10; Status DC Info (PHARMACY MONITORING -- do not chart) 1 each PRN DAILY PRN MC SEE COMMENTS; Start 02/25/20 at 20:00; Stop 02/26/20 at 10:07; Status DC Sodium Chloride 1,000 ml @ 1,000 mls/hr Q1H PRN IV hypotension; Start 02/26/20 at 10:00; Stop 02/26/20 at 15:59; Status DC Albumin Human 200 ml @ 200 mls/hr 1X PRN PRN IV Hypotension; Start 02/26/20 at 10:00; Stop 02/26/20 at 12:47; Status DC Sodium Chloride 1,000 ml @ 400 mls/hr Q2H30M PRN IV PATENCY; Start 02/26/20 at 10:00; Stop 02/26/20 at 21:59; Status DC Info (PHARMACY MONITORING -- do not chart) 1 each PRN DAILY PRN MC SEE COMMENTS; Start 02/26/20 at 10:00; Stop 02/26/20 at 10:11; Status DC Info (PHARMACY MONITORING -- do not chart) 1 each PRN DAILY PRN MC SEE COMMENTS; Start 02/26/20 at 10:00 Albumin Human 200 ml @ 200 mls/hr TID IV Last administered on 02/27/20at 20:44; Start 02/26/20 at 12:30; Stop 02/27/20 at 21:59; Status DC Furosemide (Lasix) 40 mg TID IVP Last administered on 02/27/20at 07:59; Start 02/26/20 at 12:30; Stop 02/27/20 at 14:07; Status DC Furosemide (Lasix) 40 mg BID IVP Last administered on 02/29/20at 07:38; Start 02/28/20 at 09:00 Active Scripts Active Carafate (Sucralfate) 1 Gm Tablet 1 Tab PO QID 30 Days Protonix (Pantoprazole Sodium) 40 Mg Tablet.dr 40 Mg PO DAILYAC 30 Days Miralax (Polyethylene Glycol 3350) 17 Gm Powd.pack 1 Packet PO DAILY 2 Days dissolve in water Reported D3-50 (Cholecalciferol (Vitamin D3)) 50,000 Unit Capsule 1,000 Unit PO DAILY Propranolol Hcl 40 Mg Tablet 40 Mg PO BID Furosemide 40 Mg Tablet 40 Mg PO BID Eliquis (Apixaban) 5 Mg Tablet 5 Mg PO BID Humalog (Insulin Lispro) 100 Unit/1 Ml Cartridge 100 Unit SQ TIDACHC Lantus (Insulin Glargine,Hum.rec.anlog) 100 Unit/1 Ml Vial 35 Unit SQ HS Hydrocodone-Apap 7.5-325 (Hydrocodone Bit/Acetaminophen) 1 Tab Tablet 1 Tab PO PRN Q6HRS PRN Glimepiride 1 Mg Tablet 1 Mg PO DAILY Simvastatin 40 Mg Tablet 1 Tab PO QHS Fenofibrate 160 Mg Tablet 145 Mg PO HS Propranolol Hcl 40 Mg Tablet 1 Tab PO BID One-Daily Multi-Vitamin (Multivitamin) 1 Each Tablet 1 Tab PO DAILY 30 Days Vitals/I & O Vital Sign - Last 24 Hours 02/28/20 02/28/20 02/28/20 02/28/20 10:54 11:27 11:32 12:00 Pulse 69 61 Resp 22 22 B/P (MAP) 124/58 (80) 128/60 (82) Pulse Ox 96 96 98 O2 Delivery Ventilator Ventilator Mechanical Ventilator 02/28/20 02/28/20 02/28/20 02/28/20 13:02 14:59 15:15 15:29 Temp 98.6 98.2 98.6 98.2 Pulse 59 66 66 Resp 22 B/P (MAP) 142/64 (90) 119/55 (76) 142/60 (87) Pulse Ox 99 99 97 100 O2 Delivery Ventilator Ventilator 02/28/20 02/28/20 02/28/20 02/28/20 16:00 16:00 17:15 19:00 Pulse 70 72 72 Resp 22 B/P (MAP) 118/58 (78) 134/63 (86) 134/60 (84) Pulse Ox 97 97 99 O2 Delivery Ventilator Mechanical Ventilator Ventilator Ventilator 02/28/20 02/28/20 02/28/20 02/28/20 20:00 20:32 20:44 20:45 Temp 98.2 98.2 Pulse 74 85 Resp 22 B/P (MAP) 117/52 (73) 135/63 Pulse Ox 98 98 O2 Delivery Ventilator Mechanical Ventilator Ventilator 02/28/20 02/28/20 02/28/20 02/29/20 21:00 22:00 23:00 00:00 Pulse 69 66 70 Resp B/P (MAP) 112/54 (73) 106/50 (68) 139/66 (90) Pulse Ox 99 98 95 O2 Delivery Ventilator Ventilator Ventilator Mechanical Ventilator 02/29/20 02/29/20 02/29/20 02/29/20 00:00 00:30 01:00 02:00 Temp 97.7 97.7 Pulse 66 67 68 Resp B/P (MAP) 114/58 (76) 117/58 (77) 115/52 (73) Pulse Ox 100 100 98 92 O2 Delivery Ventilator Ventilator Ventilator Ventilator 02/29/20 02/29/20 02/29/20 02/29/20 03:00 04:00 04:00 04:03 Temp 98.4 98.4 Pulse 69 71 Resp B/P (MAP) 113/58 (76) 121/53 (75) Pulse Ox 82 98 100 O2 Delivery Ventilator Mechanical Ventilator Ventilator Ventilator 02/29/20 02/29/20 02/29/20 02/29/20 05:00 06:00 07:00 07:30 Temp 98.2 98.2 Pulse 70 78 82 Resp 22 22 22 B/P (MAP) 111/58 (75) 128/62 (84) 135/63 (87) Pulse Ox 97 98 96 100 O2 Delivery Ventilator Ventilator Ventilator Ventilator 02/29/20 02/29/20 02/29/20 07:39 08:01 08:03 Pulse 82 82 Resp 22 B/P (MAP) 135/53 132/57 (82) Pulse Ox 22 O2 Delivery Ventilator Mechanical Ventilator Intake and Output 02/28/20 02/28/20 02/29/20 15:00 23:00 07:00 Intake Total 650 ml 1736 ml 2107 ml Output Total 325 ml 1800 ml 1110 ml Balance 325 ml -64 ml 997 ml Justicifation of Admission Dx: Justifications for Admission: Justification of Admission Dx: Yes CHRISTINA BRADSHAW MD Feb 29, 2020 10:11
--- NOTE | 2020-02-29 11:44 | PDOC ---
PULMONARY PROGRESS NOTES DATE: 02/29/20 TIME: 11:39 Subjective On vent support up to 100%FIO2,, PEEP 8 afebrile, AC mode Vitals Vital Signs Date Time Temp Pulse Resp B/P (MAP) Pulse Ox O2 Delivery O2 Flow Rate FiO2 02/29/20 11:10 100 Ventilator 02/29/20 10:31 67 22 114/54 (74) 02/29/20 07:00 98.2 98.2 Comments intubated/sedated Lungs: Clear Cardiovascular: S1, S2 Abdomen: Other (obese) Extremities: Other (BLE edema ) Skin: Warm, Dry Labs Laboratory Tests Test 02/27/20 12:02 02/27/20 17:53 02/28/20 00:10 02/28/20 05:15 Glucose (Fingerstick) 232 mg/dL (70-99) 155 mg/dL (70-99) 166 mg/dL (70-99) 194 mg/dL (70-99) White Blood Count 6.3 x10^3/uL (4.0-11.0) Red Blood Count 3.26 x10^6/uL (4.30-5.70) Hemoglobin 8.0 g/dL (13.0-17.5) Hematocrit 25.9 % (39.0-53.0) Mean Corpuscular Volume 80 fL (79-100) Mean Corpuscular Hemoglobin 25 pg (25-35) Mean Corpuscular Hemoglobin Concent 31 g/dL (31-37) Red Cell Distribution Width 18.2 % (11.5-14.5) Platelet Count 262 x10^3/uL (140-400) Neutrophils (%) (Auto) 73 % (31-73) Lymphocytes (%) (Auto) 12 % (24-48) Monocytes (%) (Auto) 11 % (0-9) Eosinophils (%) (Auto) 2 % (0-3) Basophils (%) (Auto) 1 % (0-3) Neutrophils # (Auto) 4.6 x10^3/uL (1.8-7.7) Lymphocytes # (Auto) 0.8 x10^3/uL (1.0-4.8) Monocytes # (Auto) 0.7 x10^3/uL (0.0-1.1) Eosinophils # (Auto) 0.2 x10^3/uL (0.0-0.7) Basophils # (Auto) 0.1 x10^3/uL (0.0-0.2) Sodium Level 140 mmol/L (136-145) Potassium Level 4.3 mmol/L (3.5-5.1) Chloride Level 101 mmol/L (98-107) Carbon Dioxide Level 32 mmol/L (21-32) Anion Gap 7 (6-14) Blood Urea Nitrogen 57 mg/dL (8-26) Creatinine 2.7 mg/dL (0.7-1.3) Estimated GFR (Cockcroft-Gault) 23.6 Glucose Level 188 mg/dL (70-99) Calcium Level 9.1 mg/dL (8.5-10.1) Phosphorus Level 5.9 mg/dL (2.6-4.7) Magnesium Level 2.4 mg/dL (1.8-2.4) Total Bilirubin 0.5 mg/dL (0.2-1.0) Direct Bilirubin 0.3 mg/dL (0.0-0.2) Aspartate Amino Transf (AST/SGOT) 28 U/L (15-37) Alanine Aminotransferase (ALT/SGPT) 11 U/L (16-63) Alkaline Phosphatase 69 U/L (46-116) Total Protein 6.7 g/dL (6.4-8.2) Albumin 2.4 g/dL (3.4-5.0) Procalcitonin 0.60 ng/mL (0.00-0.10) Test 02/28/20 07:00 02/28/20 12:30 02/28/20 23:54 02/29/20 05:50 O2 Saturation 84 % (92-99) Arterial Blood pH 7.37 (7.35-7.45) Arterial Blood pCO2 at Patient Temp 56 mmHg (35-46) Arterial Blood pO2 at Patient Temp 54 mmHg (65-108) Arterial Blood HCO3 32 mmol/L (21-28) Arterial Blood Base Excess 5 mmol/L (-3-3) FiO2 90/vent Glucose (Fingerstick) 229 mg/dL (70-99) 233 mg/dL (70-99) White Blood Count 9.6 x10^3/uL (4.0-11.0) Red Blood Count 3.18 x10^6/uL (4.30-5.70) Hemoglobin 7.8 g/dL (13.0-17.5) Hematocrit 25.3 % (39.0-53.0) Mean Corpuscular Volume 80 fL (79-100) Mean Corpuscular Hemoglobin 25 pg (25-35) Mean Corpuscular Hemoglobin Concent 31 g/dL (31-37) Red Cell Distribution Width 18.2 % (11.5-14.5) Platelet Count 263 x10^3/uL (140-400) Neutrophils (%) (Auto) 77 % (31-73) Lymphocytes (%) (Auto) 6 % (24-48) Monocytes (%) (Auto) 14 % (0-9) Eosinophils (%) (Auto) 2 % (0-3) Basophils (%) (Auto) 1 % (0-3) Neutrophils # (Auto) 7.5 x10^3/uL (1.8-7.7) Lymphocytes # (Auto) 0.6 x10^3/uL (1.0-4.8) Monocytes # (Auto) 1.3 x10^3/uL (0.0-1.1) Eosinophils # (Auto) 0.2 x10^3/uL (0.0-0.7) Basophils # (Auto) 0.1 x10^3/uL (0.0-0.2) Sodium Level 138 mmol/L (136-145) Potassium Level 4.6 mmol/L (3.5-5.1) Chloride Level 100 mmol/L (98-107) Carbon Dioxide Level 31 mmol/L (21-32) Anion Gap 7 (6-14) Blood Urea Nitrogen 70 mg/dL (8-26) Creatinine 2.7 mg/dL (0.7-1.3) Estimated GFR (Cockcroft-Gault) 23.6 Glucose Level 246 mg/dL (70-99) Calcium Level 8.8 mg/dL (8.5-10.1) Phosphorus Level 5.9 mg/dL (2.6-4.7) Magnesium Level 2.3 mg/dL (1.8-2.4) Albumin 2.0 g/dL (3.4-5.0) Test 02/29/20 06:03 02/29/20 07:30 Glucose (Fingerstick) 250 mg/dL (70-99) O2 Saturation 94 % (92-99) Arterial Blood pH 7.34 (7.35-7.45) Arterial Blood pCO2 at Patient Temp 61 mmHg (35-46) Arterial Blood pO2 at Patient Temp 78 mmHg (65-108) Arterial Blood HCO3 32 mmol/L (21-28) Arterial Blood Base Excess 5 mmol/L (-3-3) FiO2 100/vent Laboratory Tests Test 02/28/20 12:30 02/28/20 23:54 02/29/20 05:50 02/29/20 06:03 Glucose (Fingerstick) 229 mg/dL (70-99) 233 mg/dL (70-99) 250 mg/dL (70-99) White Blood Count 9.6 x10^3/uL (4.0-11.0) Red Blood Count 3.18 x10^6/uL (4.30-5.70) Hemoglobin 7.8 g/dL (13.0-17.5) Hematocrit 25.3 % (39.0-53.0) Mean Corpuscular Volume 80 fL (79-100) Mean Corpuscular Hemoglobin 25 pg (25-35) Mean Corpuscular Hemoglobin Concent 31 g/dL (31-37) Red Cell Distribution Width 18.2 % (11.5-14.5) Platelet Count 263 x10^3/uL (140-400) Neutrophils (%) (Auto) 77 % (31-73) Lymphocytes (%) (Auto) 6 % (24-48) Monocytes (%) (Auto) 14 % (0-9) Eosinophils (%) (Auto) 2 % (0-3) Basophils (%) (Auto) 1 % (0-3) Neutrophils # (Auto) 7.5 x10^3/uL (1.8-7.7) Lymphocytes # (Auto) 0.6 x10^3/uL (1.0-4.8) Monocytes # (Auto) 1.3 x10^3/uL (0.0-1.1) Eosinophils # (Auto) 0.2 x10^3/uL (0.0-0.7) Basophils # (Auto) 0.1 x10^3/uL (0.0-0.2) Sodium Level 138 mmol/L (136-145) Potassium Level 4.6 mmol/L (3.5-5.1) Chloride Level 100 mmol/L (98-107) Carbon Dioxide Level 31 mmol/L (21-32) Anion Gap 7 (6-14) Blood Urea Nitrogen 70 mg/dL (8-26) Creatinine 2.7 mg/dL (0.7-1.3) Estimated GFR (Cockcroft-Gault) 23.6 Glucose Level 246 mg/dL (70-99) Calcium Level 8.8 mg/dL (8.5-10.1) Phosphorus Level 5.9 mg/dL (2.6-4.7) Magnesium Level 2.3 mg/dL (1.8-2.4) Albumin 2.0 g/dL (3.4-5.0) Test 02/29/20 07:30 O2 Saturation 94 % (92-99) Arterial Blood pH 7.34 (7.35-7.45) Arterial Blood pCO2 at Patient Temp 61 mmHg (35-46) Arterial Blood pO2 at Patient Temp 78 mmHg (65-108) Arterial Blood HCO3 32 mmol/L (21-28) Arterial Blood Base Excess 5 mmol/L (-3-3) FiO2 100/vent Medications Active Scripts Medications Dose Route/Sig Max Daily Dose Days Date Category Dose Instructions D3-50 (Cholecalciferol (Vitamin D3)) 50,000 Unit Capsule 1,000 Unit PO DAILY 02/21/20 Reported Propranolol Hcl 40 Mg Tablet 40 Mg PO BID 02/21/20 Reported Furosemide 40 Mg Tablet 40 Mg PO BID 02/21/20 Reported Eliquis (Apixaban) 5 Mg Tablet 5 Mg PO BID 02/21/20 Reported Humalog (Insulin Lispro) 100 Unit/1 Ml Cartridge 100 Unit SQ TIDACHC 02/21/20 Reported Lantus (Insulin Glargine,Hum.rec.anlog) 100 Unit/1 Ml Vial 35 Unit SQ HS 02/21/20 Reported Hydrocodone-Apap 7.5-325 (Hydrocodone Bit/Acetaminophen) 1 Tab Tablet 1 Tab PO PRN Q6HRS PRN 02/21/20 Reported Glimepiride 1 Mg Tablet 1 Mg PO DAILY 02/21/20 Reported Carafate (Sucralfate) 1 Gm Tablet 1 Tab PO QID 30 11/11/19 Rx Protonix (Pantoprazole Sodium) 40 Mg Tablet.dr 40 Mg PO DAILYAC 30 11/11/19 Rx Miralax (Polyethylene Glycol 3350) 17 Gm Powd.pack 1 Packet PO DAILY 2 11/11/19 Rx dissolve in water Simvastatin 40 Mg Tablet 1 Tab PO QHS 11/06/19 Reported Fenofibrate 160 Mg Tablet 145 Mg PO HS 11/06/19 Reported Propranolol Hcl 40 Mg Tablet 1 Tab PO BID 11/06/19 Reported One-Daily Multi-Vitamin (Multivitamin) 1 Each Tablet 1 Tab PO DAILY 30 11/06/19 Reported Comments CXR 02/28 Impression: 1. persistent pulmonary edema and small bilateral layering pleural effusions. Impression . IMPRESSION: 1. Acute on chronic hypoxemic hypercapnic respiratory failure, required intubation , worsening hypoxia due to persistent CHF/ ARDS likely 2. Paroxysmal atrial fibrillation. 3. History of deep venous thrombosis, PE, status post IVC filter placement.not on full AC due to GI bleed 4. History of anemia with history of recent gastrointestinal bleed. 5. Hypertension. 6. Hyperlipidemia. 7. Acute on chronic kidney disease. 8. Acute exacerbation of chronic obstructive pulmonary disease. 9. Acute on chronic metabolic toxic, possible toxic encephalopathy. Plan . Continue current vent support currently on 100% ,Increase PEEP to 8 Follow CXR and ABG, reviewed. no sig change Follow neurology recommendations Follow nephrology recommendations--status post hemodialysis catheter placement on 02/24, holding hemodialysis, Follow cardiology recommendations/ grade II DD COVID-19 negative Continue empiric antibiotic per ID, Follow cultures NGTD on : Anastasia/Zyvox/zosyn Follow GI recs continue TF for nutritional support DVT/GI prophylaxis Critical care time 30 min prognosis poor. remains hypoxic despite aggressive measures. re started on IV lasix, suspect ALI/ ARDS. d/w daughter and daughter in law in detail. Prognosis explained. He had poor performance status prior to this. Agree with DNR for now and possible comfort care by end of week. Discussed with RN and RT MÓNICA LUCIO MD Feb 29, 2020 11:44
[2020-02-29] MEDS: fentaNYL HIGH DOSE PCA 55 ML IV PRN (12:57)
[2020-02-29] MEDS ORDERED: FUROSEMIDE 40 MG/4 ML VIAL. IVP ONE (14:00)
[2020-02-29] MEDS: SIMVASTATIN 40 MG TABLET. PO SCH (21:08)
[2020-03-01] VITALS (11 sets, daily range): BP systolic 103–123; BP diastolic 47–88
[2020-03-01] MEDS: PIPERACILLIN/TAZOBACTAM 3.375 GM in IV NORMAL SALINE 50ML 50 ML IV SCH ×4 (00:24→17:27)
[2020-03-01] MEDS: INSULIN LISPRO 300 UNITS/3 ML VIAL. SQ SCH ×4 (00:28→17:31)
[2020-03-01] MEDS: PROPOFOL 100 ML IV PRN ×6 (02:13→17:27)
[2020-03-01 06:52] LABS: BASO # 0.1 x10^3/uL (0.0-0.2); BASO % 1 % (0-3); EOS # 0.2 x10^3/uL (0.0-0.7); EOS % 2 % (0-3); HEMATOCRIT 23.2 % (39.0-53.0); HEMOGLOBIN 7.3 g/dL (13.0-17.5); LYMPH # 0.6 x10^3/uL (1.0-4.8); LYMPH % 6 % (24-48); MEAN CORPUSCULAR HEMOGLOBIN 25 pg (25-35); MEAN CORPUSCULAR HGB CONC 31 g/dL (31-37); MEAN CORPUSCULAR VOLUME 80 fL (79-100); MONO # 1.2 x10^3/uL (0.0-1.1); MONO % 12 % (0-9); NEUT # 8.3 x10^3/uL (1.8-7.7); NEUT % 80 % (31-73); PLATELET COUNT 270 x10^3/uL (140-400); RED BLOOD COUNT 2.91 x10^6/uL (4.30-5.70); RED CELL DISTRIBUTION WIDTH 18.3 % (11.5-14.5); WHITE BLOOD COUNT 10.3 x10^3/uL (4.0-11.0)
[2020-03-01 06:59] LABS: ALBUMIN 1.8 g/dL (3.4-5.0); CREATININE 3.4 mg/dL (0.7-1.3); GFR 18.1; PHOSPHORUS 6.4 mg/dL (2.6-4.7); POTASSIUM 4.7 mmol/L (3.5-5.1)
--- NOTE | 2020-03-01 07:37 | PDOC ---
Infectious Disease Note Subjective Subjective Patient remains intubated/sedated ROS ROS no n/v/d/ Vital Sign Vital Signs Vital Signs Date Time Temp Pulse Resp B/P (MAP) Pulse Ox O2 Delivery O2 Flow Rate FiO2 03/01/20 07:00 72 22 103/49 (67) 94 Ventilator 03/01/20 04:00 98.2 98.2 Physical Exam PHYSICAL EXAM GENERAL: Intubated, sedated HEENT: Normocephalic, atraumatic, anicteric. OGT/ETT present LUNGS: Clear anteriorly. HEART: S1, S2. ABDOMEN: Obese. Bowel sounds present, nondistended. GENITOURINARY: Scrotal swelling. Yeast in groin [place] in place. EXTREMITIES: Bilateral venous stasis changes present. Wounds present over both lower extremities, hyperkeratotic skin, no cyanosis, no clubbing. DERMATOLOGIC: Warm, dry. No generalized rash except for above. Lines right internal jugular vein in place. Temporary HDC present Labs Lab Laboratory Tests Test 02/29/20 17:36 03/01/20 00:27 03/01/20 06:15 03/01/20 06:24 Glucose (Fingerstick) 273 mg/dL (70-99) 277 mg/dL (70-99) 264 mg/dL (70-99) Sodium Level 136 mmol/L (136-145) Potassium Level 4.7 mmol/L (3.5-5.1) Chloride Level 99 mmol/L (98-107) Carbon Dioxide Level 31 mmol/L (21-32) Anion Gap 6 (6-14) Blood Urea Nitrogen 81 mg/dL (8-26) Creatinine 3.4 mg/dL (0.7-1.3) Estimated GFR (Cockcroft-Gault) 18.1 Glucose Level 257 mg/dL (70-99) Calcium Level 9.0 mg/dL (8.5-10.1) Phosphorus Level 6.4 mg/dL (2.6-4.7) Albumin 1.8 g/dL (3.4-5.0) Micro Microbiology 02/21/20 Blood Culture - Final, Complete NO GROWTH AFTER 5 DAYS Objective Assessment Febrile illness resolved Acute hypoxic respiratory failure status post intubation Encephalopathy likely metabolic NATASHA with underlying CKD Diabetes mellitus Chronic venous stasis with bilateral chronic nonhealing lower extremity wounds with mild superimposed cellulitis Yeast in groin Elevated ammonia , cholelithiasis with distended gb on ct abdomen. History of atrial fibrillation. History of pulmonary embolism and deep venous thrombosis, status post IVC filter. Rapid COVID negative, 02/20. 10. Chronic venous stasis dermatitis, bilateral lower extremities with mild superimposed bilateral lower extremity cellulitis. 11. Congestive heart failure. 12. skilled nursing resident. 13. Elevated D-dimer. 14. Anemia. RECOMMENDATIONS: 1. Discontinue meropenem as the patient does not need 2-beta lactams 2. Continue Zosyn. 3. Add Zyvox and micafungin. 4. Follow up labs and cultures. 5. Continue local wound care. 6. Continue supportive care. 7. GI, Pulmonary, Neurology and Renal team consulte Plan Plan of Care Continue Zosyn d/c Zyvox and micafungin Follow-up cultures Continue wound care Continue supportive care Monitor labs Discussed with RN prognosis poor KENISHA BURRIS MD Mar 01, 2020 07:37
[2020-03-01] MEDS: FUROSEMIDE 40 MG/4 ML VIAL. IVP SCH (08:00)
[2020-03-01] MEDS: PANTOPRAZOLE IV PUSH 40 MG VIAL. IVP SCH (08:00)
[2020-03-01] MEDS: ELECTROLYTE (ICU) PROTOCOL. MC SCH (08:00)
[2020-03-01] MEDS: FENOFIBRATE,MICRONIZED 134 MG CAPSULE PO SCH (08:00)
[2020-03-01] MEDS: CHOLECALCIFEROL (VITAMIN D3) 1,000 UNIT TABLET PO SCH (08:00)
[2020-03-01] MEDS: MULTIVITAMINS,THERAPEUTIC 5 ML ORAL LIQUID. PEG SCH (08:00)
[2020-03-01] MEDS: PROPRANOLOL 40 MG TABLET. PO SCH (08:01)
--- NOTE | 2020-03-01 08:19 | PDOC ---
[facility] PROGRESS NOTE Date of Service DOS: DATE: 03/01/20 TIME: 08:16 Chief Complaint Chief Complaint VTE Prophylaxis Ordered VTE Prophylaxis Devices: Yes VTE Pharmacological Prophylaxi: Yes Assessment/Plan Assessment/Plan impression 1. Acute hypoxic / severe hypercapnic respiratory failure, 2. Chronic obstructive pulmonary disease. 3. Type 2 diabetes mellitus with peripheral neuropathy. 4. Hypertension. 5. Hyperlipidemia. 6. atrial fibrillation 7. History of deep vein thrombosis and pulmonary emboli x 3 for which he was on Coumadin. has now an inferior vena cava filter. Placement of retrievable IVC filter 11/12 8. bilateral lower extremity //chronic venous stasis dermatitis 9. morbid obesity 10. PUI COVID 19 11. 4 mm non bleeding antral gastric ulcer and erosive gastritis (bx) 11/12 12. NATASHA 13, ISCHEMIC CVD CT HEAD 14. CODE STROKE IN ER 15. ACUTE METABOLIC ENCEPHALOPATHY 16, POSSIBLE ASPIRATION, PNEUMONIA, SHOCK 17. Distended gallbladder, pericholecystic fluid and gallstones. Findings are equivocal for acute cholecystitis. 18. Diffuse hepatic steatosis. 19. Temporary dialysis catheter inserted 02-25-20 Scrotal swelling. Yeast in groin [place] BLOOD CULTURE Final NO GROWTH AFTER 5 DAYS 02-26-20 plan icu bed pulm consult cardiology consult GI CONSULT NEPHROLOGY CONSULT Neurology consult ID CONSULT ECHO d/c meropenem Continue Zosyn. Add Zyvox and micafungin. remains full code 37 MIN CC TIME BLOOD CULTURE Final NO GROWTH AFTER 5 DAYS 02-26-20 History of Present Illness History of Present Illness 69 yr old male, transfer from [place] due to AMS, required vent support for respiratory failure BECAME HYPOXIC 0330, INTUBATED IN ER, WAS OBTUNDED, HAD ELEVATED D-DIMER BUN 32, CR 2.1 UDS NEG, PRO-BNP 5556 WAS CODE STROKE ON PRESENTATION DUE TO AMS RESIDENT OF [facility] , admitted by DR CASTANEDA HERE ON NOV 2019 D DIMER 1.82 BUT RENAL FX PROHIBITS CTA CHEST, DEFER TO PULM poor candidate for long-term anticoagulation. WAS outpatient referral for [facility] by cardiology 02/27/2020 Patient seen and evaluated in ICU. On ventilator, FiO2 100%, PEEP 5. Continue Lasix, Zosyn, and linezolid. Charts and labs reviewed. 02/28/2020 Patient seen in ICU. On ventilator, FiO2 90%, PEEP 5. Continue to diurese. Continue antibiotic treatment with Zosyn and linezolid discussed with RN. 02/29/2020 Patient seen in ICU. Remains ventilator, FiO2 100%, PEEP 8. No acute events overnight. Afebrile. Continue to diurese, continue antibiotic treatment. 03/01/2020 Patient seen and examined in ICU. On vent with FiO2 90%, PEEP 8. Discussed with RN, no acute events overnight. Afebrile. Continue diuresis antibiotic treatment. Patient was made DNR yesterday. Vitals/I&O Vitals/I&O: Vital Signs Date Time Temp Pulse Resp B/P (MAP) Pulse Ox O2 Delivery O2 Flow Rate FiO2 03/01/20 08:01 69 107/50 03/01/20 07:00 22 94 Ventilator 03/01/20 04:00 98.2 98.2 I & O 02/29/20 02/29/20 03/01/20 15:00 23:00 07:00 Intake Total 560 ml 2182 ml 1806 ml Output Total 550 ml 1425 ml 190 ml Balance 10 ml 757 ml 1616 ml Physical Exam Physical Exam: GENERAL: Intubated, sedated HEENT: Normocephalic, atraumatic, anicteric. OGT/ETT present LUNGS: Clear anteriorly. HEART: S1, S2. ABDOMEN: Obese. Bowel sounds present, nondistended. GENITOURINARY: Scrotal swelling. Yeast in groin [place] in place. EXTREMITIES: Bilateral venous stasis changes present. Wounds present over both lower extremities, hyperkeratotic skin, no cyanosis, no clubbing. DERMATOLOGIC: Warm, dry. No generalized rash except for above. Lines right internal jugular vein in place. Temporary HDC present General: Other (Intubated.) Heart: Regular rate Lungs: Clear Abdomen: Normal bowel sounds Extremities: Other (1+ bilateral LE edema. Chronic bilateral LE venous stasis dermatitis ) Labs Labs: Laboratory Tests Test 02/29/20 17:36 03/01/20 00:27 03/01/20 06:15 1/7/21 06:24 Glucose (Fingerstick) 273 mg/dL (70-99) 277 mg/dL (70-99) 264 mg/dL (70-99) White Blood Count 10.3 x10^3/uL (4.0-11.0) Red Blood Count 2.91 x10^6/uL (4.30-5.70) Hemoglobin 7.3 g/dL (13.0-17.5) Hematocrit 23.2 % (39.0-53.0) Mean Corpuscular Volume 80 fL (79-100) Mean Corpuscular Hemoglobin 25 pg (25-35) Mean Corpuscular Hemoglobin Concent 31 g/dL (31-37) Red Cell Distribution Width 18.3 % (11.5-14.5) Platelet Count 270 x10^3/uL (140-400) Neutrophils (%) (Auto) 80 % (31-73) Lymphocytes (%) (Auto) 6 % (24-48) Monocytes (%) (Auto) 12 % (0-9) Eosinophils (%) (Auto) 2 % (0-3) Basophils (%) (Auto) 1 % (0-3) Neutrophils # (Auto) 8.3 x10^3/uL (1.8-7.7) Lymphocytes # (Auto) 0.6 x10^3/uL (1.0-4.8) Monocytes # (Auto) 1.2 x10^3/uL (0.0-1.1) Eosinophils # (Auto) 0.2 x10^3/uL (0.0-0.7) Basophils # (Auto) 0.1 x10^3/uL (0.0-0.2) Sodium Level 136 mmol/L (136-145) Potassium Level 4.7 mmol/L (3.5-5.1) Chloride Level 99 mmol/L (98-107) Carbon Dioxide Level 31 mmol/L (21-32) Anion Gap 6 (6-14) Blood Urea Nitrogen 81 mg/dL (8-26) Creatinine 3.4 mg/dL (0.7-1.3) Estimated GFR (Cockcroft-Gault) 18.1 Glucose Level 257 mg/dL (70-99) Calcium Level 9.0 mg/dL (8.5-10.1) Phosphorus Level 6.4 mg/dL (2.6-4.7) Albumin 1.8 g/dL (3.4-5.0) Comment Review of Relevant I have reviewed the following items megan (where applicable) has been applied. Medications: Current Medications Medications (Trade) Dose Ordered Sig/Dulce Route PRN Reason Start Time Stop Time Status Last Admin Dose Admin Furosemide (Lasix) 40 mg 1X ONCE IVP 02/29/20 14:00 02/29/20 14:01 DC 02/29/20 15:03 Justifications for Admission Other Justification resp failure BARB OCHOA MD Mar 01, 2020 08:19
[2020-03-01 09:05] LABS: BASE EXCESS ABG 5 mmol/L (-3-3); HCO3 ABG 32 mmol/L (21-28); PCO2 ABG 58 mmHg (35-46); PO2 ABG 80 mmHg (65-108); SAT O2 ABG 95 % (92-99)
--- NOTE | 2020-03-01 10:24 | PDOC ---
DATE OF SERVICE DATE: 03/01/20 TIME: 10:20 SUBJECTIVE ROS remains intubated , decreased UOP, received extra dose of Lasix - no response OBJECTIVE Vital Signs Vital Signs Date Time Temp Pulse Resp B/P (MAP) Pulse Ox O2 Delivery O2 Flow Rate FiO2 03/01/20 09:31 69 22 109/53 (71) 95 Ventilator 03/01/20 08:17 98.1 98.1 I & 0 Intake and Output 03/01/20 07:00 Intake Total 4548 ml Output Total 2165 ml Balance 2383 ml Intake IV Total 1472 ml Tube Feeding 2236 ml Other 840 ml Output Urine Total 2165 ml Gastric Drainage Total 0 ml PHYSICAL EXAM Physical Exam GENERAL: Intubated, sedated HEENT: anicteric. OGT/ETT present LUNGS: Clear anteriorly. HEART: S1, S2. ABDOMEN: Obese. Bowel sounds present, nondistended. : Scrotal swelling. Yeast in groin, [place] in place. EXTREMITIES: Bilateral venous stasis changes present. Wounds present over both lower extremities, hyperkeratotic skin, DERM Warm, dry. No generalized rash except for above. Temporary HDC + DIAGNOSIS/ASSESSMENT Assessment & Plan NATASHA - worsening renal function 02/23 ,was improving , noted worsening this am, received extra IV lasix non Oliguric but UOP declined E-Lytes stable , Temp HDC was placed over the weekend in anticipation of dialysis , Currently no emergent indication for HD .Family inclining towards withdrawing care Currently on lasix IV BID .Supportive care, strict I/O, monitor CKD stage 4 3/ 4 - Cr 2.63 with eGFR 24 in May 2017, used to follow with Dr. Julio, Presumed DM/ HTNsive Recently labs Cr 2.1 -2.2 , UA unremarkable, Rt Kidney reported normal on Abd US Proteinuria- Low grade Pr/Cr < 500 Hx of NATASHA on CKD-in Oct 2019 , 2/2 GI bleed ; in 2017 . Past vazquez no significant proteinuria Acute Anemia in Oct 2019 - s/p EGD with PUD . s/p PRBC , FFP's in Oct 2019 . Currently on IV Fe DM II- per primary HTN-- stable Acute on chronic diastolic CHF; Echo 03/13 with preserved LV systolic function . S/p IV Bumex at [facility] PAFIB; Was in AFIB with controlled rate per EKG at [facility]. Presently SR Hx DVT/PE. S/p IVC filter Morbid obesity Anasarca on IV Lasix and IV albumin started over this weekend , decrease dose as above ,Hypoalbuminemia, Obesity and pulmonary hypertension may be contributing Diffuse hepatic steatosis : defered to Primary team/ GI. COMMENT/RELEVANT DATA Meds Current Medications Medications (Trade) Dose Ordered Sig/Dulce Start Time Stop Time Status Last Admin Dose Admin Albumin Human 200 ml @ 200 mls/hr TID 02/26/20 12:30 02/27/20 21:59 DC 02/27/20 20:44 200 MLS/HR Apixaban (Eliquis) 5 mg BID 02/21/20 21:30 02/22/20 09:28 DC 02/22/20 08:46 5 MG Bisacodyl (Dulcolax Supp) 10 mg PRN DAILY PRN 02/21/20 12:15 Darbepoetin Jake (ARANESP for DIALYSIS PTS) 60 mcg WEEKLYHS 02/25/20 21:00 02/26/20 07:45 60 MCG Dextrose (Dextrose 50%-Water Syringe) 12.5 gm PRN Q15MIN PRN 02/23/20 08:00 Famotidine (Pepcid Vial) 20 mg BID 02/21/20 13:00 02/21/20 12:53 DC Fenofibrate (Lofibra) 134 mg DAILY 02/22/20 09:00 03/01/20 08:00 134 MG Fentanyl Citrate 55 ml @ 0 mls/hr CONT PRN 02/21/20 11:00 02/29/20 12:57 2 MLS/HR Fentanyl Citrate (Fentanyl 2ml Vial) 50 mcg PRN Q1HR PRN 02/21/20 06:45 Furosemide (Lasix) 40 mg 1X ONCE 02/29/20 14:00 02/29/20 14:01 DC 02/29/20 15:03 40 MG Influenza Virus Vaccine Quadrival (Fluzone Quad Syringe) 0.5 ml ONCE ONCE 02/22/20 09:00 02/22/20 09:01 DC Info (Anti-Coagulation Monitoring By Pharmacy) 1 each PRN DAILY PRN 02/22/20 08:15 03/01/20 09:07 DC Info (FLU VACCINE SCREEN per RX) 1 each 1X ONCE 02/22/20 00:00 02/22/20 00:01 UNV Info (Icu Electrolyte Protocol) 1 ea DAILY 02/22/20 09:00 03/01/20 08:00 1 EA Info (PHARMACY MONITORING -- do not chart) 1 each PRN DAILY PRN 02/26/20 10:00 Insulin Human Lispro (HumaLOG) 0-5 UNITS Q6HRS 02/23/20 12:00 03/01/20 06:25 4 UNITS Iron Sucrose 200 mg/Sodium Chloride 110 ml @ 55 mls/hr 3X/WEEK 02/27/20 09:00 03/07/20 10:59 02/29/20 09:07 55 MLS/HR Lidocaine HCl (Buffered Lidocaine 1%) 6 ml 1X ONCE 02/25/20 16:45 02/25/20 16:47 DC 02/25/20 16:50 4 ML Linezolid/Dextrose 300 ml @ 300 mls/hr Q12HR 02/22/20 11:30 02/22/20 11:20 DC Magnesium Sulfate 50 ml @ 25 mls/hr PRN DAILY PRN 02/24/20 08:15 Meropenem 500 mg/ Sodium Chloride 50 ml @ 100 mls/hr Q8HRS 02/21/20 14:00 02/22/20 08:19 DC 02/22/20 05:38 100 MLS/HR Micafungin Sodium 100 mg/Dextrose 100 ml @ 100 mls/hr Q24H 02/22/20 12:00 03/01/20 07:38 DC 02/29/20 08:53 100 MLS/HR Midazolam HCl 100 ml @ 0 mls/hr CONT PRN 02/21/20 06:45 02/24/20 11:18 DC 02/23/20 21:56 8 MLS/HR Morphine Sulfate (Morphine Sulfate) 4 mg PRN Q1HR PRN 02/21/20 06:45 02/23/20 06:20 DC Multivitamins (Thera M Plus) 1 tab DAILY 02/22/20 09:00 02/22/20 08:44 DC Multivitamins/ Minerals Therapeutic (Centrum Multivit-Mineral Liq) 5 ml DAILY 02/22/20 09:00 03/01/20 08:00 5 ML Ondansetron HCl (Zofran) 4 mg PRN Q6HRS PRN 02/21/20 12:15 Pantoprazole Sodium (PROTONIX VIAL for IV PUSH) 40 mg DAILY 02/22/20 09:00 03/01/20 08:00 40 MG Pantoprazole Sodium (Protonix) 40 mg DAILYAC 02/22/20 07:30 02/21/20 22:27 DC Piperacillin Sod/ Tazobactam Sod (Zosyn Per Pharmacy) 1 each PRN DAILY PRN 02/21/20 12:15 Piperacillin Sod/ Tazobactam Sod 3.375 gm/Sodium Chloride 50 ml @ 100 mls/hr Q6HRS 02/21/20 18:00 03/01/20 06:17 100 MLS/HR Potassium Chloride/Water 100 ml @ 100 mls/hr Q1H 02/23/20 08:00 02/23/20 09:59 DC 02/23/20 09:18 100 MLS/HR Propofol 100 ml @ 0 mls/hr CONT PRN 02/21/20 06:45 03/01/20 07:59 24.8 MLS/HR Propranolol HCl (Inderal) 40 mg BID 02/21/20 21:30 03/01/20 08:01 40 MG Simvastatin (Zocor) 40 mg QHS 02/21/20 21:00 02/29/20 21:08 40 MG Sodium Chloride 1,000 ml @ 400 mls/hr Q2H30M PRN 02/26/20 10:00 02/26/20 21:59 DC Sodium Chloride (Normal Saline Flush) 10 ml 1X PRN PRN 02/25/20 20:00 02/26/20 19:59 DC Sucralfate (Carafate) 1 gm QID 02/21/20 21:30 02/21/20 22:23 DC Vitamin D (Vitamin D3) 1,000 unit DAILY 02/22/20 09:00 03/01/20 08:00 1,000 UNIT Lab Laboratory Tests Test 02/29/20 17:36 03/01/20 00:27 03/01/20 06:15 03/01/20 06:24 Glucose (Fingerstick) 273 mg/dL (70-99) 277 mg/dL (70-99) 264 mg/dL (70-99) White Blood Count 10.3 x10^3/uL (4.0-11.0) Red Blood Count 2.91 x10^6/uL (4.30-5.70) Hemoglobin 7.3 g/dL (13.0-17.5) Hematocrit 23.2 % (39.0-53.0) Mean Corpuscular Volume 80 fL (79-100) Mean Corpuscular Hemoglobin 25 pg (25-35) Mean Corpuscular Hemoglobin Concent 31 g/dL (31-37) Red Cell Distribution Width 18.3 % (11.5-14.5) Platelet Count 270 x10^3/uL (140-400) Neutrophils (%) (Auto) 80 % (31-73) Lymphocytes (%) (Auto) 6 % (24-48) Monocytes (%) (Auto) 12 % (0-9) Eosinophils (%) (Auto) 2 % (0-3) Basophils (%) (Auto) 1 % (0-3) Neutrophils # (Auto) 8.3 x10^3/uL (1.8-7.7) Lymphocytes # (Auto) 0.6 x10^3/uL (1.0-4.8) Monocytes # (Auto) 1.2 x10^3/uL (0.0-1.1) Eosinophils # (Auto) 0.2 x10^3/uL (0.0-0.7) Basophils # (Auto) 0.1 x10^3/uL (0.0-0.2) Sodium Level 136 mmol/L (136-145) Potassium Level 4.7 mmol/L (3.5-5.1) Chloride Level 99 mmol/L (98-107) Carbon Dioxide Level 31 mmol/L (21-32) Anion Gap 6 (6-14) Blood Urea Nitrogen 81 mg/dL (8-26) Creatinine 3.4 mg/dL (0.7-1.3) Estimated GFR (Cockcroft-Gault) 18.1 Glucose Level 257 mg/dL (70-99) Calcium Level 9.0 mg/dL (8.5-10.1) Phosphorus Level 6.4 mg/dL (2.6-4.7) Albumin 1.8 g/dL (3.4-5.0) Results All relevant outside records, renal labs, imaging studies, telemetry/EKG's were reviewed. Justicifation of Admission Dx: Justifications for Admission: Justification of Admission Dx: Yes MULUGETA PEREZ MD Mar 01, 2020 10:24
--- NOTE | 2020-03-01 10:37 | PDOC ---
PULMONARY PROGRESS NOTES DATE: 03/01/20 TIME: 10:34 Subjective On vent support up to 100%FIO2,, PEEP 8 afebrile, AC mode Vitals Vital Signs Date Time Temp Pulse Resp B/P (MAP) Pulse Ox O2 Delivery O2 Flow Rate FiO2 03/01/20 09:31 69 22 109/53 (71) 95 Ventilator 03/01/20 08:17 98.1 98.1 Comments intubated/sedated exam done via tele med Extremities: Other (BLE edema ) Skin: Warm, Dry Labs Laboratory Tests Test 02/28/20 12:30 02/28/20 23:54 02/29/20 05:50 02/29/20 06:03 Glucose (Fingerstick) 229 mg/dL (70-99) 233 mg/dL (70-99) 250 mg/dL (70-99) White Blood Count 9.6 x10^3/uL (4.0-11.0) Red Blood Count 3.18 x10^6/uL (4.30-5.70) Hemoglobin 7.8 g/dL (13.0-17.5) Hematocrit 25.3 % (39.0-53.0) Mean Corpuscular Volume 80 fL (79-100) Mean Corpuscular Hemoglobin 25 pg (25-35) Mean Corpuscular Hemoglobin Concent 31 g/dL (31-37) Red Cell Distribution Width 18.2 % (11.5-14.5) Platelet Count 263 x10^3/uL (140-400) Neutrophils (%) (Auto) 77 % (31-73) Lymphocytes (%) (Auto) 6 % (24-48) Monocytes (%) (Auto) 14 % (0-9) Eosinophils (%) (Auto) 2 % (0-3) Basophils (%) (Auto) 1 % (0-3) Neutrophils # (Auto) 7.5 x10^3/uL (1.8-7.7) Lymphocytes # (Auto) 0.6 x10^3/uL (1.0-4.8) Monocytes # (Auto) 1.3 x10^3/uL (0.0-1.1) Eosinophils # (Auto) 0.2 x10^3/uL (0.0-0.7) Basophils # (Auto) 0.1 x10^3/uL (0.0-0.2) Sodium Level 138 mmol/L (136-145) Potassium Level 4.6 mmol/L (3.5-5.1) Chloride Level 100 mmol/L (98-107) Carbon Dioxide Level 31 mmol/L (21-32) Anion Gap 7 (6-14) Blood Urea Nitrogen 70 mg/dL (8-26) Creatinine 2.7 mg/dL (0.7-1.3) Estimated GFR (Cockcroft-Gault) 23.6 Glucose Level 246 mg/dL (70-99) Calcium Level 8.8 mg/dL (8.5-10.1) Phosphorus Level 5.9 mg/dL (2.6-4.7) Magnesium Level 2.3 mg/dL (1.8-2.4) Albumin 2.0 g/dL (3.4-5.0) Test 02/29/20 07:30 02/29/20 17:36 03/01/20 00:27 03/01/20 06:15 O2 Saturation 94 % (92-99) Arterial Blood pH 7.34 (7.35-7.45) Arterial Blood pCO2 at Patient Temp 61 mmHg (35-46) Arterial Blood pO2 at Patient Temp 78 mmHg (65-108) Arterial Blood HCO3 32 mmol/L (21-28) Arterial Blood Base Excess 5 mmol/L (-3-3) FiO2 100/vent Glucose (Fingerstick) 273 mg/dL (70-99) 277 mg/dL (70-99) White Blood Count 10.3 x10^3/uL (4.0-11.0) Red Blood Count 2.91 x10^6/uL (4.30-5.70) Hemoglobin 7.3 g/dL (13.0-17.5) Hematocrit 23.2 % (39.0-53.0) Mean Corpuscular Volume 80 fL (79-100) Mean Corpuscular Hemoglobin 25 pg (25-35) Mean Corpuscular Hemoglobin Concent 31 g/dL (31-37) Red Cell Distribution Width 18.3 % (11.5-14.5) Platelet Count 270 x10^3/uL (140-400) Neutrophils (%) (Auto) 80 % (31-73) Lymphocytes (%) (Auto) 6 % (24-48) Monocytes (%) (Auto) 12 % (0-9) Eosinophils (%) (Auto) 2 % (0-3) Basophils (%) (Auto) 1 % (0-3) Neutrophils # (Auto) 8.3 x10^3/uL (1.8-7.7) Lymphocytes # (Auto) 0.6 x10^3/uL (1.0-4.8) Monocytes # (Auto) 1.2 x10^3/uL (0.0-1.1) Eosinophils # (Auto) 0.2 x10^3/uL (0.0-0.7) Basophils # (Auto) 0.1 x10^3/uL (0.0-0.2) Sodium Level 136 mmol/L (136-145) Potassium Level 4.7 mmol/L (3.5-5.1) Chloride Level 99 mmol/L (98-107) Carbon Dioxide Level 31 mmol/L (21-32) Anion Gap 6 (6-14) Blood Urea Nitrogen 81 mg/dL (8-26) Creatinine 3.4 mg/dL (0.7-1.3) Estimated GFR (Cockcroft-Gault) 18.1 Glucose Level 257 mg/dL (70-99) Calcium Level 9.0 mg/dL (8.5-10.1) Phosphorus Level 6.4 mg/dL (2.6-4.7) Albumin 1.8 g/dL (3.4-5.0) Test 03/01/20 06:24 Glucose (Fingerstick) 264 mg/dL (70-99) Laboratory Tests Test 02/29/20 17:36 03/01/20 00:27 03/01/20 06:15 03/01/20 06:24 Glucose (Fingerstick) 273 mg/dL (70-99) 277 mg/dL (70-99) 264 mg/dL (70-99) White Blood Count 10.3 x10^3/uL (4.0-11.0) Red Blood Count 2.91 x10^6/uL (4.30-5.70) Hemoglobin 7.3 g/dL (13.0-17.5) Hematocrit 23.2 % (39.0-53.0) Mean Corpuscular Volume 80 fL (79-100) Mean Corpuscular Hemoglobin 25 pg (25-35) Mean Corpuscular Hemoglobin Concent 31 g/dL (31-37) Red Cell Distribution Width 18.3 % (11.5-14.5) Platelet Count 270 x10^3/uL (140-400) Neutrophils (%) (Auto) 80 % (31-73) Lymphocytes (%) (Auto) 6 % (24-48) Monocytes (%) (Auto) 12 % (0-9) Eosinophils (%) (Auto) 2 % (0-3) Basophils (%) (Auto) 1 % (0-3) Neutrophils # (Auto) 8.3 x10^3/uL (1.8-7.7) Lymphocytes # (Auto) 0.6 x10^3/uL (1.0-4.8) Monocytes # (Auto) 1.2 x10^3/uL (0.0-1.1) Eosinophils # (Auto) 0.2 x10^3/uL (0.0-0.7) Basophils # (Auto) 0.1 x10^3/uL (0.0-0.2) Sodium Level 136 mmol/L (136-145) Potassium Level 4.7 mmol/L (3.5-5.1) Chloride Level 99 mmol/L (98-107) Carbon Dioxide Level 31 mmol/L (21-32) Anion Gap 6 (6-14) Blood Urea Nitrogen 81 mg/dL (8-26) Creatinine 3.4 mg/dL (0.7-1.3) Estimated GFR (Cockcroft-Gault) 18.1 Glucose Level 257 mg/dL (70-99) Calcium Level 9.0 mg/dL (8.5-10.1) Phosphorus Level 6.4 mg/dL (2.6-4.7) Albumin 1.8 g/dL (3.4-5.0) Medications Active Scripts Medications Dose Route/Sig Max Daily Dose Days Date Category Dose Instructions D3-50 (Cholecalciferol (Vitamin D3)) 50,000 Unit Capsule 1,000 Unit PO DAILY 02/21/20 Reported Propranolol Hcl 40 Mg Tablet 40 Mg PO BID 02/21/20 Reported Furosemide 40 Mg Tablet 40 Mg PO BID 02/21/20 Reported Eliquis (Apixaban) 5 Mg Tablet 5 Mg PO BID 02/21/20 Reported Humalog (Insulin Lispro) 100 Unit/1 Ml Cartridge 100 Unit SQ TIDACHC 02/21/20 Reported Lantus (Insulin Glargine,Hum.rec.anlog) 100 Unit/1 Ml Vial 35 Unit SQ HS 02/21/20 Reported Hydrocodone-Apap 7.5-325 (Hydrocodone Bit/Acetaminophen) 1 Tab Tablet 1 Tab PO PRN Q6HRS PRN 02/21/20 Reported Glimepiride 1 Mg Tablet 1 Mg PO DAILY 02/21/20 Reported Carafate (Sucralfate) 1 Gm Tablet 1 Tab PO QID 30 11/11/19 Rx Protonix (Pantoprazole Sodium) 40 Mg Tablet.dr 40 Mg PO DAILYAC 30 11/11/19 Rx Miralax (Polyethylene Glycol 3350) 17 Gm Powd.pack 1 Packet PO DAILY 2 11/11/19 Rx dissolve in water Simvastatin 40 Mg Tablet 1 Tab PO QHS 11/06/19 Reported Fenofibrate 160 Mg Tablet 145 Mg PO HS 11/06/19 Reported Propranolol Hcl 40 Mg Tablet 1 Tab PO BID 11/06/19 Reported One-Daily Multi-Vitamin (Multivitamin) 1 Each Tablet 1 Tab PO DAILY 30 11/06/19 Reported Comments CXR 02/28 Impression: 1. persistent pulmonary edema and small bilateral layering pleural effusions. Impression . IMPRESSION: 1. Acute on chronic hypoxemic hypercapnic respiratory failure, required intubation , worsening hypoxia due to persistent CHF/ ARDS likely 2. Paroxysmal atrial fibrillation. 3. History of deep venous thrombosis, PE, status post IVC filter placement.not on full AC due to GI bleed 4. History of anemia with history of recent gastrointestinal bleed. 5. Hypertension. 6. Hyperlipidemia. 7. Acute on chronic kidney disease. worse with increase dose of lasix 8. Acute exacerbation of chronic obstructive pulmonary disease. 9. Acute on chronic metabolic toxic, possible toxic encephalopathy. Plan . Continue current vent support currently on 100% , PEEP of 8 Follow CXR and ABG, reviewed. no sig change Follow neurology recommendations Follow nephrology recommendations--status post hemodialysis catheter placement on 02/24, holding hemodialysis, worse renal function Follow cardiology recommendations/ grade II DD COVID-19 negative Continue empiric antibiotic per ID, Follow cultures NGTD on : Anastasia/Zyvox/zosyn Follow GI recs continue TF for nutritional support DVT/GI prophylaxis prognosis poor. remains hypoxic despite aggressive measures. re started on IV lasix, suspect ALI/ ARDS. d/w daughter and daughter in law in detail 02/28. Prognosis explained. He had poor performance status prior to this. Agree with DNR for now and possible comfort care in next 24 hrs Discussed with RN and RT MÓNICA LUCIO MD Mar 01, 2020 10:37
[2020-03-01 12:29] LABS: FIO2 ABG 100% VENT
[2020-03-01] MEDS: fentaNYL HIGH DOSE PCA 55 ML IV PRN (13:41)
[2020-03-01] MEDS ORDERED: MORPHINE SULFATE 10 MG/ML VIAL. ONE (18:26)
[2020-03-01] MEDS ORDERED: MORPHINE SULFATE 10 MG/ML VIAL. IV ONE (18:30)
--- NOTE | 2020-03-02 16:39 | PDOC3 ---
Discharge Summary Visit Information Date of Admission: Feb 21, 2020 Date of Discharge: Mar 01, 2020 Brief Hospital Course Allergies Allergies Coded Allergies Type Severity Reaction Last Updated Verified Milk Containing Products Allergy Intermediate 11/06/19 Yes chlordiazepoxide Allergy Intermediate 11/06/19 Yes insulin glargine Allergy Intermediate increased HR 11/06/19 Yes Vital Signs Vital Signs Date Time Temp Pulse Resp B/P (MAP) Pulse Ox O2 Delivery O2 Flow Rate FiO2 03/01/20 16:00 Mechanical Ventilator 03/01/20 15:55 94 03/01/20 12:04 98.2 78 22 123/59 (80) 98.2 Lab Results Laboratory Tests Test 02/29/20 17:36 03/01/20 00:27 03/01/20 06:15 03/01/20 06:24 Glucose (Fingerstick) 273 mg/dL (70-99) 277 mg/dL (70-99) 264 mg/dL (70-99) White Blood Count 10.3 x10^3/uL (4.0-11.0) Red Blood Count 2.91 x10^6/uL (4.30-5.70) Hemoglobin 7.3 g/dL (13.0-17.5) Hematocrit 23.2 % (39.0-53.0) Mean Corpuscular Volume 80 fL (79-100) Mean Corpuscular Hemoglobin 25 pg (25-35) Mean Corpuscular Hemoglobin Concent 31 g/dL (31-37) Red Cell Distribution Width 18.3 % (11.5-14.5) Platelet Count 270 x10^3/uL (140-400) Neutrophils (%) (Auto) 80 % (31-73) Lymphocytes (%) (Auto) 6 % (24-48) Monocytes (%) (Auto) 12 % (0-9) Eosinophils (%) (Auto) 2 % (0-3) Basophils (%) (Auto) 1 % (0-3) Neutrophils # (Auto) 8.3 x10^3/uL (1.8-7.7) Lymphocytes # (Auto) 0.6 x10^3/uL (1.0-4.8) Monocytes # (Auto) 1.2 x10^3/uL (0.0-1.1) Eosinophils # (Auto) 0.2 x10^3/uL (0.0-0.7) Basophils # (Auto) 0.1 x10^3/uL (0.0-0.2) Sodium Level 136 mmol/L (136-145) Potassium Level 4.7 mmol/L (3.5-5.1) Chloride Level 99 mmol/L (98-107) Carbon Dioxide Level 31 mmol/L (21-32) Anion Gap 6 (6-14) Blood Urea Nitrogen 81 mg/dL (8-26) Creatinine 3.4 mg/dL (0.7-1.3) Estimated GFR (Cockcroft-Gault) 18.1 Glucose Level 257 mg/dL (70-99) Calcium Level 9.0 mg/dL (8.5-10.1) Phosphorus Level 6.4 mg/dL (2.6-4.7) Albumin 1.8 g/dL (3.4-5.0) Test 03/01/20 08:00 03/01/20 11:43 03/01/20 17:29 O2 Saturation 95 % (92-99) Arterial Blood pH 7.36 (7.35-7.45) Arterial Blood pCO2 at Patient Temp 58 mmHg (35-46) Arterial Blood pO2 at Patient Temp 80 mmHg (65-108) Arterial Blood HCO3 32 mmol/L (21-28) Arterial Blood Base Excess 5 mmol/L (-3-3) FiO2 100% vent Glucose (Fingerstick) 251 mg/dL (70-99) 224 mg/dL (70-99) Laboratory Tests Test 03/01/20 17:29 Glucose (Fingerstick) 224 mg/dL (70-99) Brief Hospital Course Mr. Mcqueen is a 69 old male who presented with acute respiratory failure secondary to combination of acute COPD exacerbation, acute on chronic diastolic heart failure, and possible pneumonia. Covid test negative. Treated with diuresis with close monitoring of creatinine. He required intubation and managment in the ICU. Other comorbidities complicating this patient's treatment were likely ARDS, paroxysmal atrial fibrillation, history of deep venous thrombosis, PE status post IVC filter placement. Consultations placed to pulmonology, infectious disease, nephrology, GI, and neurology. He was treated with appropriate antibiotics, micafungin, Zyvox, Zosyn. His kidney function was worsened by Lasix diuresis. Due to poor prognosis family agreedto DNR. Eventually they were agreeable to comfort care. Patient shortly after and comfort care was initiated. Discharge Information Condition at Discharge: / Disposition/Orders: Scheduled Apixaban (Eliquis) 5 Mg Tablet, 5 MG PO BID for DVT, (Reported) Entered as Reported by: MATEUSZ OTT on 02/21/201124 Last Taken: Unknown Dose on Unknown Date & Time Last Action: Continued on 02/21/202110 by RHONDA CORREIA MD Cholecalciferol (Vitamin D3) (D3-50) 50,000 Unit Capsule, 1,000 UNIT PO DAILY for supplement, (Reported) Entered as Reported by: MATEUSZ OTT on 02/21/201124 Last Taken: Unknown Dose on Unknown Date & Time Last Action: Converted on 02/21/202110 by RHONDA CORREIA MD Fenofibrate (Fenofibrate) 160 Mg Tablet, 145 MG PO HS for cholesterol pill , #30 Ref 5 (Reported) Entered as Reported by: ANTONIO GALVEZ RN on 11/06/19 0702 Last Action: Converted on 02/21/202110 by RHONDA CORREIA MD Furosemide (Furosemide) 40 Mg Tablet, 40 MG PO BID for HTN, (Reported) Entered as Reported by: MATEUSZ OTT on 02/21/201124 Last Taken: Unknown Dose on Unknown Date & Time Last Action: HELD on 02/21/202110 by RHONDA CORREIA MD Glimepiride (Glimepiride) 1 Mg Tablet, 1 MG PO DAILY for DM2, (Reported) Entered as Reported by: MATEUSZ OTT on 02/21/201124 Last Taken: Unknown Dose on Unknown Date & Time Last Action: HELD on 02/21/202110 by RHONDA CORREIA MD Insulin Glargine,Hum.rec.anlog (Lantus) 100 Unit/1 Ml Vial, 35 UNIT SQ HS for DM2, (Reported) Entered as Reported by: MATEUSZ OTT on 02/21/201124 Last Action: HELD on 02/21/202110 by RHONDA CORREIA MD Insulin Lispro (Humalog) 100 Unit/1 Ml Cartridge, 100 UNIT SQ TIDACHC for DM2, (Reported) Entered as Reported by: MATEUSZ OTT on 02/21/201124 Last Taken: Unknown Dose on Unknown Date & Time Last Action: HELD on 02/21/202110 by RHONDA CORREIA MD Multivitamin (One-Daily Multi-Vitamin) 1 Each Tablet, 1 TAB PO DAILY for supplement for 30 Days, #30 Ref 0 (Reported) Entered as Reported by: ANTONIO GALVEZ RN on 11/06/19653 Last Action: Converted on 02/21/202110 by RHONDA CORREIA MD Pantoprazole Sodium (Protonix ) 40 Mg Tablet.dr, 40 MG PO DAILYAC for GERD for 30 Days, #30 Prescribed by: TONYA MENDOZA on 11/11/19919 Last Action: Continued on 02/21/202110 by RHONDA CORREIA MD Polyethylene Glycol 3350 (Miralax) 17 Gm Powd.pack, 1 PACKET PO DAILY for constipation for 2 Days, #2 Ref 0 dissolve in water Prescribed by: TONYA MENDOZA on 11/11/19919 Last Action: HELD on 02/21/202110 by RHONDA CORREIA MD Propranolol Hcl (Propranolol Hcl) 40 Mg Tablet, 1 TAB PO BID for High Blood pressure pill , #60 Ref 5 (Reported) Entered as Reported by: ANTONIO GALVEZ RN on 11/06/19701 Last Action: Continued on 02/21/201451 by DINO SAHA APRN Propranolol Hcl (Propranolol Hcl) 40 Mg Tablet, 40 MG PO BID for HTN, (Reported) Entered as Reported by: MATEUSZ OTT on 02/21/201124 Last Taken: Unknown Dose on Unknown Date & Time Last Action: Continued on 02/21/202110 by RHONDA CORREIA MD Simvastatin (Simvastatin) 40 Mg Tablet, 1 TAB PO QHS for high cholesterol pill , #30 Ref 5 (Reported) Entered as Reported by: ANTONIO GALVEZ RN on 11/06/19701 Last Action: Continued on 02/21/201451 by DINO SAHA APRN Sucralfate (Carafate) 1 Gm Tablet, 1 TAB PO QID for pepetic ulcer for 30 Days, #120 Ref 0 Prescribed by: TONYA MENDOZA on 11/11/19921 Last Action: Continued on 02/21/202110 by RHONDA CORREIA MD Scheduled PRN Hydrocodone Bit/Acetaminophen (Hydrocodone-Apap 7.5-325 ) 1 Tab Tablet, 1 TAB PO PRN Q6HRS PRN for PAIN, Ref 0 (Reported) Entered as Reported by: MATEUSZ OTT on 02/21/20 1125 Last Taken: Unknown Dose on Unknown Date & Time Last Action: HELD on 02/21/202110 by RHONDA CORREIA MD Justicifation of Admission Dx: Justifications for Admission: Justification of Admission Dx: Yes BARB OCHOA MD Mar 02, 2020 16:39
== END 2020-03-01 21:00 | DRG 870 ==
LOC: 1 WEST ICU 06:21
PROVIDERS: ADMIT Internal Medicine; ATTEND Internal Medicine
PROC: 5A1955Z Respiratory Ventilation, Greater than 96 Consecutive Hours (ICD-10-PCS; principal; 2020-02-21)
PROC: 0BH17EZ Insertion of Endotracheal Airway into Trachea, Via Natural or Artificial Opening (ICD-10-PCS; 2020-02-21)
PROC: 02HV33Z Insertion of Infusion Device into Superior Vena Cava, Percutaneous Approach (ICD-10-PCS; 2020-02-27)
PROC: B548ZZA Ultrasonography of Superior Vena Cava, Guidance (ICD-10-PCS; 2020-02-27)
DX: A41.9 Sepsis, unspecified organism (principal); G93.41 Metabolic encephalopathy; I50.33 Acute on chronic diastolic (congestive) heart failure; J80 Acute respiratory distress syndrome; N18.6 End stage renal disease; J18.9 Pneumonia, unspecified organism; J44.0 Chronic obstructive pulmonary disease with (acute) lower respiratory infection; I13.2 Hypertensive heart and chronic kidney disease with heart failure and with stage 5 chronic kidney disease, or end stage renal disease; J44.1 Chronic obstructive pulmonary disease with (acute) exacerbation; L03.115 Cellulitis of right lower limb; L03.116 Cellulitis of left lower limb; L03.311 Cellulitis of abdominal wall; N17.9 Acute kidney failure, unspecified; B37.2 Candidiasis of skin and nail; D64.9 Anemia, unspecified; E11.22 Type 2 diabetes mellitus with diabetic chronic kidney disease; E11.42 Type 2 diabetes mellitus with diabetic polyneuropathy; E11.51 Type 2 diabetes mellitus with diabetic peripheral angiopathy without gangrene; E66.01 Morbid (severe) obesity due to excess calories; E78.00 Pure hypercholesterolemia, unspecified; E78.5 Hyperlipidemia, unspecified; F03.90 Unspecified dementia, unspecified severity, without behavioral disturbance, psychotic disturbance, mood disturbance, and anxiety; F17.210 Nicotine dependence, cigarettes, uncomplicated; I27.20 Pulmonary hypertension, unspecified; I48.0 Paroxysmal atrial fibrillation; I87.8 Other specified disorders of veins; K21.9 Gastro-esophageal reflux disease without esophagitis; K59.00 Constipation, unspecified; K74.60 Unspecified cirrhosis of liver; K76.0 Fatty (change of) liver, not elsewhere classified; K82.8 Other specified diseases of gallbladder; M19.072 Primary osteoarthritis, left ankle and foot; N50.89 Other specified disorders of the male genital organs; R79.1 Abnormal coagulation profile; T45.515A Adverse effect of anticoagulants, initial encounter; Z51.5 Encounter for palliative care; Z66 Do not resuscitate; Z79.01 Long term (current) use of anticoagulants; Z79.4 Long term (current) use of insulin; Z82.49 Family history of ischemic heart disease and other diseases of the circulatory system; Z83.3 Family history of diabetes mellitus; Z86.711 Personal history of pulmonary embolism; Z86.718 Personal history of other venous thrombosis and embolism; Z89.422 Acquired absence of other left toe(s); Z95.828 Presence of other vascular implants and grafts; Z99.2 Dependence on renal dialysis; F32.9 Major depressive disorder, single episode, unspecified; M19.90 Unspecified osteoarthritis, unspecified site; Z88.8 Allergy status to other drugs, medicaments and biological substances; Z20.822 Contact with and (suspected) exposure to COVID-19
CPT/HCPCS: 36415; 36556; 36600; 71045; 76705; 76937; 80048; 80053; 80069; 80076; 81001; 82140; 82570; 82607; 82728; 82805; 82962; 83540; 83550; 83605; 83735; 84145; 84156; 84300; 84443; 84484; 85025; 85027; 85610; 85730; 86317; 87040; 87086; 87340; 87426; 93306; 94002; 94003; 94760; C1892; C9113; J0882; J1756; J1815; J1940; J2020; J2185; J2248; J2250; J2270; J2543; J2704; J3010; J3475; J3480; J3490; J7030; J7060; P9046; U0003; G0378